=== PATIENT | female | born 1965 | race Caucasian/White ===

== ENCOUNTER → 2017-01-17 | Outpatient (CLI) | payer BC ==
[~2017-01-17] MED LIST: CARV12.52 PO; CETI10TA10 PO; CIPR-255 PO; CLC/300 PO; DALB1SOL IV; DAPT500I IV; FLUC100T4 PO; HMLI7525 SC; INSDGI SC; INSPMPHMLG; INSPMPHMLG SQ; LINE1TAB6 PO; LOSA1TAB38 PO; OXYC-57 PO; SUCR1TAB29 PO; VENL150C PO; VENL150C56 PO
== END | disposition home or self-care (01) ==
LOC: C.LABSPEC 16:45
PROVIDERS: ATTEND Physician Assistant
DX: E11.610 Type 2 diabetes mellitus with diabetic neuropathic arthropathy (principal); S91.301A Unspecified open wound, right foot, initial encounter; X58.XXXA Exposure to other specified factors, initial encounter

== ENCOUNTER → 2017-01-24 | Outpatient (CLI) | payer BC ==
[~2017-01-24] MED LIST changes: -CLC/300 PO; -INSPMPHMLG
[2017-01-24 17:42] LABS: BASO % 0.3 %; BASO ABS # 0.04 K/uL (0-0.2); COMPLETE YES; EOS % 2.4 %; IG% 0.4 %; LYMPH % 30.6 %; LYMPH ABS # 3.56 K/uL (1.2-3.4); MEAN CELL VOLUME 82.7 fL (80-100); MEAN CORPUSCULAR HEMOGLOBIN 27.4 pg (25-34); MEAN CORPUSCULAR HGB CONC 33.2 g/dl (32-36); MEAN PLATELET VOLUME 8.3 fL (7.4-10.4); MONO % 7.1 %; NEUT % 59.2 %; PLATELET COUNT 564 K/uL (130-400); RED BLOOD COUNT 4.96 M/uL (4.2-5.4); WHITE BLOOD COUNT 11.62 K/uL (4.8-10.8)
[2017-01-24 18:43] LABS: ALT/SGPT 18 U/L (12-78); BLOOD UREA NITROGEN 20 mg/dl (7-18); BUN/CREATININE RATIO 16.6 (10-20); CALCIUM 9.7 mg/dl (8.5-10.1); CARBON DIOXIDE 24 mmol/L (21-32); CHLORIDE 100 mmol/L (98-107); GLUCOSE 245 mg/dl (70-99); POTASSIUM 4.1 mmol/L (3.5-5.1); SODIUM 137 mmol/L (136-145)
[2017-01-24 18:56] LABS: ALB/GLOB RATIO 0.9 (0.9-2); ALKALINE PHOSPHATASE 130 U/L (45-117); AST/SGOT 10 U/L (15-37); C-REACTIVE PROTEIN 2.15 mg/dl (0-0.29)
== END | disposition home or self-care (01) ==
LOC: C.LABSPEC 16:25
PROVIDERS: ATTEND Internal Medicine Infectious Disease
DX: L03.90 Cellulitis, unspecified (principal)

== ENCOUNTER → 2017-02-07 | Outpatient (CLI) | payer BC ==
[~2017-02-07] MED LIST changes: -FLUC100T4 PO; -OXYC-57 PO
[2017-02-07 15:18] LABS: BASO % 0.4 %; BASO ABS # 0.04 K/uL (0-0.2); COMPLETE YES; EOS % 5.2 %; HEMATOCRIT 42.2 % (37-47); IG% 0.2 %; LYMPH % 35.7 %; LYMPH ABS # 3.56 K/uL (1.2-3.4); MEAN CELL VOLUME 82.7 fL (80-100); MEAN CORPUSCULAR HEMOGLOBIN 26.3 pg (25-34); MEAN CORPUSCULAR HGB CONC 31.8 g/dl (32-36); MEAN PLATELET VOLUME 8.5 fL (7.4-10.4); MONO % 5.4 %; NEUT % 53.1 %; PLATELET COUNT 461 K/uL (130-400); WHITE BLOOD COUNT 9.97 K/uL (4.8-10.8)
[2017-02-07 15:28] LABS: ALT/SGPT 17 U/L (12-78); AST/SGOT 8 U/L (15-37); BLOOD UREA NITROGEN 21 mg/dl (7-18); BUN/CREATININE RATIO 23.5 (10-20); CALCIUM 9.6 mg/dl (8.5-10.1); CARBON DIOXIDE 31 mmol/L (21-32); CHLORIDE 101 mmol/L (98-107); GLUCOSE 233 mg/dl (70-99); POTASSIUM 4.3 mmol/L (3.5-5.1); SODIUM 138 mmol/L (136-145)
[2017-02-07 15:31] LABS: ALB/GLOB RATIO 0.9 (0.9-2); ALKALINE PHOSPHATASE 124 U/L (45-117); C-REACTIVE PROTEIN 1.22 mg/dl (0-0.29)
--- NOTE | 2017-02-17 09:05 | CODING QUERY NO DIAGNOSIS ---
TREATMENT RENDERED WITHOUT A DIAGNOSIS Dr. Mckeon, To promote full compliance with coding requirements relating to patient care, physician participation is requested in all cases of bottom stainer uncertainty. Please assist us with providing a diagnosis/symptom for the test(s) below: A diagnosis/symptom was not documented on your Order. A valid diagnosis/symptom is required to bill all insurances. Please remember that we are unable to code a diagnosis of rule out, probable, possible, questionable, or suspected. Tests that require a diagnosis: * CBC W/AUTO DIFF DIAGNOSIS: * SED-RATE DIAGNOSIS: * CPK DIAGNOSIS: * CMP DIAGNOSIS: * C-REACTIVE PROTEIN DIAGNOSIS: DATE OF SERVICE: 02/07/17 Provider Signature: Date: Thank you Jose [facility] Information Management Once completed, please kindly fax back to [phone] For questions please call [phone]
== END | disposition home or self-care (01) ==
LOC: C.LABSPEC 13:46
PROVIDERS: ATTEND Internal Medicine Infectious Disease
DX: Z01.89 Encounter for other specified special examinations (principal)

== ENCOUNTER → 2017-02-14 | Outpatient (CLI) | payer BC ==
[2017-02-14 14:34] LABS: BASO % 0.4 %; BASO ABS # 0.03 K/uL (0-0.2); COMPLETE YES; EOS % 4.8 %; HEMATOCRIT 36.2 % (37-47); IG% 0.2 %; LYMPH % 34.7 %; LYMPH ABS # 2.96 K/uL (1.2-3.4); MEAN CELL VOLUME 82.1 fL (80-100); MEAN CORPUSCULAR HEMOGLOBIN 27.2 pg (25-34); MEAN CORPUSCULAR HGB CONC 33.1 g/dl (32-36); MEAN PLATELET VOLUME 8.7 fL (7.4-10.4); MONO % 6.9 %; PLATELET COUNT 395 K/uL (130-400); RED BLOOD COUNT 4.41 M/uL (4.2-5.4); WHITE BLOOD COUNT 8.54 K/uL (4.8-10.8)
[2017-02-14 15:01] LABS: ALT/SGPT 21 U/L (12-78); AST/SGOT 11 U/L (15-37); BLOOD UREA NITROGEN 20 mg/dl (7-18); BUN/CREATININE RATIO 22.2 (10-20); CALCIUM 8.6 mg/dl (8.5-10.1); CARBON DIOXIDE 25 mmol/L (21-32); CHLORIDE 105 mmol/L (98-107); CREATININE 0.88 mg/dl (0.60-1.20); GLUCOSE 300 mg/dl (70-99); POTASSIUM 4.4 mmol/L (3.5-5.1); SODIUM 138 mmol/L (136-145)
[2017-02-14 15:03] LABS: ALB/GLOB RATIO 0.9 (0.9-2); ALKALINE PHOSPHATASE 128 U/L (45-117); C-REACTIVE PROTEIN 1.36 mg/dl (0-0.29)
--- NOTE | 2017-02-16 10:11 | CODING QUERY NO DIAGNOSIS ---
TREATMENT RENDERED WITHOUT A DIAGNOSIS Dr. Mckeon, To promote full compliance with coding requirements relating to patient care, physician participation is requested in all cases of hims coder uncertainty. Please assist us with providing a diagnosis/symptom for the test(s) below: A diagnosis/symptom was not documented on your Order. A valid diagnosis/symptom is required to bill all insurances. Please remember that we are unable to code a diagnosis of rule out, probable, possible, questionable, or suspected. Tests that require a diagnosis: * CBC W/AUTO DIFF DIAGNOSIS: * SED-RATE DIAGNOSIS: * CPK DIAGNOSIS: * CMP DIAGNOSIS: * C-REACTIVE PROTEIN DIAGNOSIS: DATE OF SERVICE: 02/14/17 Provider Signature: Date: Thank you Jose [facility] Information Management Once completed, please kindly fax back to [phone] For questions please call [phone]
== END | disposition home or self-care (01) ==
LOC: C.LABSPEC 13:26
PROVIDERS: ATTEND Internal Medicine Infectious Disease
DX: Z01.89 Encounter for other specified special examinations (principal)

== ENCOUNTER → 2017-02-16 | Outpatient (CLI) | payer BC ==
[~2017-02-16] MED LIST changes: +FLUC100T4 PO; +OPTIRAY 320 IV PRN; +OXYC-57 PO
--- NOTE | 2017-02-16 15:18 | DIAGNOSTIC IMAGING REPORT ---
CT SCAN OF THE RIGHT LOWER EXTREMITY WITH IV CONTRAST CLINICAL HISTORY: Nonhealing wound COMPARISON STUDY: MRI of the right foot dated 01/19/2017 TECHNIQUE: CT scan of the right lower extremity is performed from the ankle to the foot. Images are reviewed in the axial, sagittal, and coronal planes. IV contrast was administered without complication. The examination is significantly degraded by positioning within the CT gantry. The interpretation is also significantly degraded without plain film correlate. CT DOSE: 204.20 mGy.cm FINDINGS: The skeletal structures are osteopenic. No acute fracture is seen. Extensive destructive change is identified throughout the tarsal bones and at the tarsometatarsal junctions. There is diffuse bony fragmentation with multifocal periostitis and diffuse superficial and deep soft tissue edema. The appearance is consistent with a neuropathic/Charcot foot. Superimposed osteomyelitis would be impossible to exclude. There are large dorsal and plantar calcaneal enthesophytes. A rocker-bottom deformity is noted. Postoperative change is identified at multiple sites in the midfoot with several screw tracks present. Although there is subcutaneous fluid, and no organized fluid collection is clearly identified to indication abscess. A large cutaneous defect along the base of the foot at the level of the anterior calcaneus is consistent with a wound/ulcer. IMPRESSION: 1. Extensive deformity is seen throughout the foot consistent with a neuropathic/Charcot foot. 2. There is diffuse superficial and deep soft tissue edema and fluid suggesting cellulitis. No organized fluid collection is clearly seen to indicate abscess. 3. There is extensive destructive and postoperative change seen throughout the tarsal bones and the tarsometatarsal joints. This may simply be related to a Charcot foot. Superimposed osteomyelitis would be impossible to exclude and clinical correlation will be required. 4. Suspect a large wound/ulcer along the plantar aspect of the foot at the level of the anterior calcaneus. Dictated: 02/16/2017 3:00 PM Transcribed: 02/16/2017 3:18 PM [email or web address] Electronically signed by: Neri Gould M.D. 02/16/2017 3:26 PM Dictated Date/Time: 02/16/2017 3:00 PM
== END | disposition home or self-care (01) ==
LOC: C.CTS 14:11
PROVIDERS: ATTEND Emergency Medicine
DX: S91.301A Unspecified open wound, right foot, initial encounter (principal); X58.XXXA Exposure to other specified factors, initial encounter; Z98.890 Other specified postprocedural states

== ENCOUNTER 2017-02-17 19:22 | Emergency (ER) | payer BC ==
[~2017-02-17] VITALS: Ht 165.1 cm; Wt 128.0 kg
[~2017-02-17 19:22] MED LIST changes: -DALB1SOL IV; -FLUC100T4 PO; -INSPMPHMLG SQ; -LINE1TAB6 PO; -OPTIRAY 320 IV PRN; -OXYC-57 PO; -SUCR1TAB29 PO; -VENL150C PO
[2017-02-17 19:27] VITALS: Ht 165.1 cm; Wt 128.0 kg
[2017-02-17] MEDS ORDERED: INSPMPHMLG SQ (20:34)
--- NOTE | 2017-02-17 20:52 | DIAGNOSTIC IMAGING REPORT ---
SINGLE VIEW CHEST CLINICAL HISTORY: PICC line assessment. FINDINGS: An AP, portable, upright chest radiograph is obtained. No prior studies are available for comparison at the time of dictation. The examination is degraded by portable technique and patient rotation. A right PICC line is in place. The tip projects over the right innominate vein proximally 6 cm above the issa. The cardiomediastinal silhouette is unremarkable. The lungs and pleural spaces are clear. No pneumothorax is seen. The skeletal structures are osteopenic. The bony thorax is grossly intact. IMPRESSION: 1. No active disease in the chest. 2. A right PICC line is in place. The tip projects over the right innominate vein approximately 6 cm above the issa. Electronically signed by: Neri Gould M.D. 02/17/2017 8:51 PM Dictated Date/Time: 02/17/2017 8:49 PM
[2017-02-17 21:56] VITALS: BP 149/73; PULSE 74; TEMP 36.9; O2SAT 98
--- NOTE | 2017-02-18 00:07 | EMERGENCY ROOM VISIT NOTE ---
History Report prepared by Troy: Petrona Auguste Under the Supervision of: Dr. Marvel Pugh M.D. First contact with patient: 19:54 Chief Complaint: OTHER COMPLAINT Stated Complaint: PICC LINE 50CM, OUT 12CM History of Present Illness The patient is a 51 year old female who presents to the Emergency Room with complaints of PICC line malfunction occurring today. The patient has been receiving IV Daptomycin through the PICC line on the right arm for a diabetic foot infection and MRSA with a foot vac in place. She needs at least 3 more weeks of antibiotics. Today, the patient's Tegaderm and dressing rolled up. The PICC line had been placed to about 50 cm on January 20 and came out to about 12 cm today. She also complains of itching and erythema around the PICC line. The patient is allergic to the adhesive. She otherwise currently denies any pain. She has some numbness with extension of the right arm from the time of PICC line placement. Pt denies LOC, headache, fevers, chills, diaphoresis, chest pain , breathing difficulties, weakness, lymphadenopathy, or other complaints. Source of History: patient Onset: today Position: arm (right) Symptom Intensity: No pain currently Quality: other (PICC line malfunction) Review of Systems See HPI for pertinent positives and negatives. A total of six systems were reviewed and were otherwise negative. Past Medical & Surgical Medical Problems: (1) Diabetes Family History Patient reports no known family medical history. Social History Smoking Status: Never Smoker Drug Use: none Marital Status: single Occupation Status: disabled Current/Historical Medications Scheduled Carvedilol (Coreg), 1 TAB PO BID Ciprofloxacin Hcl (Cipro), 1 TAB PO BID Daptomycin (Daptomycin), 760 MG IV DAILY Insulin Glargine (Lantus), 60 SC AMPM Insulin Human Lispro (Humalog), SQ AC Losartan Potassium (Cozaar), 100 MG PO DAILY Venlafaxine Hcl (Effexor Extended Rel), 300 MG PO DAILY Scheduled PRN Cetirizine Hcl (Zyrtec), 1 TAB PO DAILY PRN for ALLERGIC REACTION Allergies Coded Allergies: Adhesives (Verified Allergy, Severe, blisters, 01/19/17) Doxycycline (Verified Allergy, Severe, RASH, 01/19/17) Tetracycline (Verified Allergy, Severe, RASH, 01/19/17) Uncoded Allergies: sulfa-diuretics (Allergy, Severe, tongue swelling, 01/19/17) Physical Exam Vital Signs Date Time Temp Pulse Resp B/P (MAP) Pulse Ox O2 Delivery O2 Flow Rate FiO2 02/17/17 21:56 36.9 74 18 149/73 98 02/17/17 21:36 36.9 74 149/73 98 Room Air 02/17/17 19:27 36.6 85 18 173/71 99 Room Air Physical Exam GENERAL: Awake, alert, well-appearing, in no distress HENT: Normocephalic, atraumatic. Oropharynx unremarkable. EYES: Normal conjunctiva. Sclera non-icteric. NECK: Supple. No nuchal rigidity. FROM. No JVD. RESPIRATORY: Clear to auscultation. CARDIAC: Regular rate, normal rhythm. Extremities warm and well perfused. Pulses equal. ABDOMEN: Soft, non-distended. No tenderness to palpation. No rebound or guarding. No masses. RECTAL: Deferred. MUSCULOSKELETAL: Chest examination reveals no tenderness. The back is symmetrical on inspection without obvious abnormality. There is no CVA tenderness to palpation. No joint edema. PICC line in the right medial bicep area, contact dermatitis surrounding, no cellulitis. PICC line pulled out to 13 cm. LOWER EXTREMITIES: Calves are equal size bilaterally and non-tender. No edema. No discoloration. Wound vac on right foot. NEURO: Normal sensorium. No sensory or motor deficits noted. SKIN: No rash or jaundice noted. Medical Decision & Procedures ER Provider Diagnostic Interpretation: X-ray: Per my interpretation, radiologist review. SINGLE VIEW CHEST CLINICAL HISTORY: PICC line assessment. FINDINGS: An AP, portable, upright chest radiograph is obtained. No prior studies are available for comparison at the time of dictation. The examination is degraded by portable technique and patient rotation. A right PICC line is in place. The tip projects over the right innominate vein proximally 6 cm above the issa. The cardiomediastinal silhouette is unremarkable. The lungs and pleural spaces are clear. No pneumothorax is seen. The skeletal structures are osteopenic. The bony thorax is grossly intact. IMPRESSION: 1. No active disease in the chest. 2. A right PICC line is in place. The tip projects over the right innominate vein approximately 6 cm above the issa. Electronically signed by: Neri Gould M.D. 02/17/2017 8:51 PM Dictated Date/Time: 02/17/2017 8:49 PM ED Course 1953: The patient was evaluated in room B05. A complete history and physical exam was performed. Medication Reconciliation: I attest that I have personally reviewed the patient' s current medication list Blood pressure screening: Patient was found to have an elevated blood pressure and was referred to their primary doctor for recheck and further treatment. 2108: IV team will address the issues with the PICC line. 2124: I reevaluated the patient. Discussed results and discharge instructions: She verbalized understanding and agreement. The patient is ready for discharge. Medical Decision The patient was evaluated. He presented complaining of her PICC line migrating accidentally as well as sensitivity to adhesive. Differential includes PICC line dislodgment, infection, contact dermatitis as well as others. On evaluation the patient had a mild contact dermatitis from tape adhesive. She states this is an ongoing problem. There is no signs of cellulitis. The PICC line had migrated about 8-9 cm. An x-ray was performed. This showed the PICC line to be still within the central circulation. IV team did evaluate the patient. Unfortunately there are no staff here tonight they can change the PICC line [id number]. The patient is very difficult IV stick. PICC line is functioning. I believe it is most prudent to continue maintaining this PICC line and have the line addressed on Monday through the [facility]. She will contact infectious disease Monday to arrange this. She does note that it was a challenge and took 4 attempts to get the PICC line placed. If this tick on stops working she will come back to the emergency department. She will continue to protect this PICC line as best as possible.I gave my usual and customary discussion regarding this issue. The patient was noted to have some hypertension. She was referred to internal medicine for further evaluation and assessment a primary care.I gave my usual and customary discussion regarding this issue. Impression Primary Impression: PICC line malfunction Additional Impression: Contact dermatitis Scribe Attestation The scribe's documentation has been prepared under my direction and personally reviewed by me in its entirety. I confirm that the note above accurately reflects all work, treatment, procedures, and medical decision making performed by me. Departure Information Dispostion Home / Self-Care Referrals Junior Mckeon MD (PCP) Forms HOME CARE DOCUMENTATION FORM, IMPORTANT VISIT INFORMATION, WORK / SCHOOL INSTRUCTIONS Patient Instructions My [facility] [address] Additional Instructions Continue current care and protect the PICC line as best as possible. Call Dr. Mckeon's office Monday to address the PICC line issue. Return to the emergency department for worsening PICC line problems, fever, redness around the PICC line site, arm sling, or as needed. Your blood pressure was noted to be elevated. Establish primary care for follow -up and a recheck. Call the [facility] internal medicine office for assistance at [phone]. Problem Qualifiers
[2017-04-24] MEDS ORDERED: LINE1TAB6 PO (10:29)
[2017-05-08] MEDS ORDERED: SUCR1TAB29 PO (10:35)
[2017-06-08] MEDS ORDERED: VENL150C PO (15:11)
[2017-06-20] MEDS ORDERED: DALB1SOL IV (09:54)
[2017-08-01] MEDS ORDERED: FLUC100T4 PO (09:26)
[2017-08-03] MEDS ORDERED: VENL150C PO (10:22)
[2017-08-11] MEDS ORDERED: INSDGI SC (06:15)
[2017-08-11] MEDS ORDERED: OXYC-57 PO (10:28)
== END 2017-02-17 21:57 | disposition home or self-care (01) ==
LOC: C.EDB 19:24
DX: T82.49XA Other complication of vascular dialysis catheter, initial encounter (principal); X58.XXXA Exposure to other specified factors, initial encounter; L23.1 Allergic contact dermatitis due to adhesives; E11.621 Type 2 diabetes mellitus with foot ulcer; A49.02 Methicillin resistant Staphylococcus aureus infection, unspecified site; Z79.2 Long term (current) use of antibiotics; Z79.4 Long term (current) use of insulin

== ENCOUNTER → 2017-02-23 | Outpatient (CLI) | payer BC ==
[~2017-02-23] MED LIST changes: +DALB1SOL IV; +FLUC100T4 PO; -HMLI7525 SC; +INSPMPHMLG SQ; +LINE1TAB6 PO; +OXYC-57 PO; +SUCR1TAB29 PO; +VENL150C PO
[2017-02-23 20:35] LABS: BASO % 0.2 %; BASO ABS # 0.02 K/uL (0-0.2); COMPLETE YES; EOS % 3.4 %; IG% 0.2 %; LYMPH % 38.4 %; LYMPH ABS # 3.64 K/uL (1.2-3.4); MEAN CELL VOLUME 82.1 fL (80-100); MEAN CORPUSCULAR HEMOGLOBIN 26.3 pg (25-34); MEAN CORPUSCULAR HGB CONC 32.1 g/dl (32-36); MEAN PLATELET VOLUME 8.6 fL (7.4-10.4); MONO % 4.7 %; NEUT % 53.1 %; PLATELET COUNT 426 K/uL (130-400); RED BLOOD COUNT 4.75 M/uL (4.2-5.4); WHITE BLOOD COUNT 9.49 K/uL (4.8-10.8)
[2017-02-23 20:56] LABS: AST/SGOT 11 U/L (15-37); BLOOD UREA NITROGEN 22 mg/dl (7-18); BUN/CREATININE RATIO 25.2 (10-20); CALCIUM 8.8 mg/dl (8.5-10.1); CARBON DIOXIDE 29 mmol/L (21-32); CHLORIDE 104 mmol/L (98-107); CREATININE 0.86 mg/dl (0.60-1.20); GLUCOSE 232 mg/dl (70-99); POTASSIUM 4.5 mmol/L (3.5-5.1); SODIUM 139 mmol/L (136-145)
[2017-02-23 20:59] LABS: ALB/GLOB RATIO 0.9 (0.9-2); ALKALINE PHOSPHATASE 133 U/L (45-117); ALT/SGPT 20 U/L (12-78); C-REACTIVE PROTEIN 0.78 mg/dl (0-0.29)
== END | disposition home or self-care (01) ==
LOC: C.LABSPEC 14:08
PROVIDERS: ATTEND Internal Medicine Infectious Disease
DX: A49.01 Methicillin susceptible Staphylococcus aureus infection, unspecified site (principal)

== ENCOUNTER → 2017-02-28 | Outpatient (CLI) | payer BC ==
[2017-02-28 15:38] LABS: BASO % 0.3 %; BASO ABS # 0.03 K/uL (0-0.2); COMPLETE YES; EOS % 3.5 %; HEMATOCRIT 36.6 % (37-47); IG% 0.3 %; LYMPH % 30.5 %; LYMPH ABS # 3.19 K/uL (1.2-3.4); MEAN CELL VOLUME 82.4 fL (80-100); MEAN CORPUSCULAR HGB CONC 32.8 g/dl (32-36); MEAN PLATELET VOLUME 8.7 fL (7.4-10.4); MONO % 5.8 %; NEUT % 59.6 %; PLATELET COUNT 445 K/uL (130-400); RED BLOOD COUNT 4.44 M/uL (4.2-5.4); WHITE BLOOD COUNT 10.47 K/uL (4.8-10.8)
[2017-02-28 15:46] LABS: ALT/SGPT 24 U/L (12-78); AST/SGOT 12 U/L (15-37); BLOOD UREA NITROGEN 36 mg/dl (7-18); BUN/CREATININE RATIO 37.1 (10-20); CALCIUM 9.3 mg/dl (8.5-10.1); CARBON DIOXIDE 25 mmol/L (21-32); CHLORIDE 100 mmol/L (98-107); CREATININE 0.98 mg/dl (0.60-1.20); GLUCOSE 329 mg/dl (70-99); POTASSIUM 4.3 mmol/L (3.5-5.1); SODIUM 135 mmol/L (136-145)
[2017-02-28 15:55] LABS: ALB/GLOB RATIO 0.9 (0.9-2); ALKALINE PHOSPHATASE 138 U/L (45-117); C-REACTIVE PROTEIN 1.55 mg/dl (0-0.29)
[2017-02-28 16:02] LABS: BETA-HYDROXYBUTYRATE 1.17 mg/dL (0.2-2.81)
== END | disposition home or self-care (01) ==
LOC: C.LABSPEC 13:45
PROVIDERS: ATTEND Internal Medicine Infectious Disease
DX: Z51.81 Encounter for therapeutic drug level monitoring (principal); Z79.2 Long term (current) use of antibiotics

== ENCOUNTER → 2017-03-14 | Outpatient (CLI) | payer BC ==
[~2017-03-14] MED LIST changes: -FLUC100T4 PO; +HMLI7525 SC; -OXYC-57 PO
[2017-03-14 14:44] LABS: BASO % 0.3 %; BASO ABS # 0.02 K/uL (0-0.2); COMPLETE YES; EOS % 2.8 %; HEMATOCRIT 36.2 % (37-47); IG% 0.7 %; LYMPH % 36.5 %; MEAN CELL VOLUME 80.3 fL (80-100); MEAN CORPUSCULAR HEMOGLOBIN 27.3 pg (25-34); MEAN PLATELET VOLUME 8.4 fL (7.4-10.4); MONO % 6.2 %; NEUT % 53.5 %; PLATELET COUNT 452 K/uL (130-400); RED BLOOD COUNT 4.51 M/uL (4.2-5.4)
[2017-03-14 15:10] LABS: ALB/GLOB RATIO 0.8 (0.9-2); ALKALINE PHOSPHATASE 145 U/L (45-117); ALT/SGPT 17 U/L (12-78); AST/SGOT 9 U/L (15-37); BLOOD UREA NITROGEN 16 mg/dl (7-18); BUN/CREATININE RATIO 14.3 (10-20); C-REACTIVE PROTEIN 4.16 mg/dl (0-0.29); CALCIUM 8.8 mg/dl (8.5-10.1); CARBON DIOXIDE 25 mmol/L (21-32); CHLORIDE 97 mmol/L (98-107); GLUCOSE 463 mg/dl (70-99); POTASSIUM 4.1 mmol/L (3.5-5.1); SODIUM 131 mmol/L (136-145)
[2017-03-14 15:23] LABS: BETA-HYDROXYBUTYRATE 1.46 mg/dL (0.2-2.81)
--- NOTE | 2017-03-24 08:57 | CODING QUERY NO DIAGNOSIS ---
TREATMENT RENDERED WITHOUT A DIAGNOSIS To promote full compliance with coding requirements relating to patient care, physician participation is requested in all cases of industrial photographer uncertainty. Please assist us with providing a diagnosis/symptom for the test(s) below: A diagnosis/symptom was not documented on your Order. A valid diagnosis/symptom is required to bill all insurances. Please remember that we are unable to code a diagnosis of rule out, probable, possible, questionable, or suspected. Tests that require a diagnosis: DOS 03/14 * CBC, ESR DIAGNOSIS: * CMP, CPK, CRP DIAGNOSIS: Provider Signature: Date: Thank you Leonela Fields [facility] Information Management Once completed, please kindly fax back to [phone] For questions please call [phone]
== END | disposition home or self-care (01) ==
LOC: C.LABSPEC 14:27
PROVIDERS: ATTEND Internal Medicine Infectious Disease
DX: Z92.29 Personal history of other drug therapy (principal)

== ENCOUNTER → 2017-03-22 | Outpatient (CLI) | payer BC ==
[~2017-03-22] MED LIST changes: -HMLI7525 SC
[2017-03-22 14:36] LABS: BASO % 0.5 %; BASO ABS # 0.04 K/uL (0-0.2); COMPLETE YES; IG% 0.2 %; LYMPH % 33.5 %; LYMPH ABS # 2.94 K/uL (1.2-3.4); MEAN CELL VOLUME 81.7 fL (80-100); MEAN CORPUSCULAR HEMOGLOBIN 27.1 pg (25-34); MEAN CORPUSCULAR HGB CONC 33.2 g/dl (32-36); MEAN PLATELET VOLUME 8.9 fL (7.4-10.4); MONO % 5.8 %; PLATELET COUNT 435 K/uL (130-400); RED BLOOD COUNT 4.65 M/uL (4.2-5.4); WHITE BLOOD COUNT 8.78 K/uL (4.8-10.8)
[2017-03-22 14:43] LABS: ALT/SGPT 18 U/L (12-78); BLOOD UREA NITROGEN 16 mg/dl (7-18); BUN/CREATININE RATIO 17.9 (10-20); C-REACTIVE PROTEIN 0.54 mg/dl (0-0.29); CALCIUM 9.1 mg/dl (8.5-10.1); CARBON DIOXIDE 25 mmol/L (21-32); CHLORIDE 105 mmol/L (98-107); CREATININE 0.89 mg/dl (0.60-1.20); GLUCOSE 175 mg/dl (70-99); POTASSIUM 3.9 mmol/L (3.5-5.1); SODIUM 138 mmol/L (136-145)
[2017-03-22 14:46] LABS: ALB/GLOB RATIO 0.9 (0.9-2); ALKALINE PHOSPHATASE 123 U/L (45-117); AST/SGOT 12 U/L (15-37)
== END | disposition home or self-care (01) ==
LOC: C.LABSPEC 11:45
PROVIDERS: ATTEND Internal Medicine Infectious Disease
DX: A49.01 Methicillin susceptible Staphylococcus aureus infection, unspecified site (principal); L03.119 Cellulitis of unspecified part of limb

== ENCOUNTER → 2017-03-28 | Outpatient (CLI) | payer BC ==
[2017-03-28 15:39] LABS: BASO % 0.4 %; BASO ABS # 0.03 K/uL (0-0.2); COMPLETE YES; EOS % 3.8 %; HEMATOCRIT 36.3 % (37-47); IG% 0.4 %; LYMPH % 32.6 %; LYMPH ABS # 2.67 K/uL (1.2-3.4); MEAN CELL VOLUME 81.4 fL (80-100); MEAN CORPUSCULAR HEMOGLOBIN 27.1 pg (25-34); MEAN CORPUSCULAR HGB CONC 33.3 g/dl (32-36); MEAN PLATELET VOLUME 8.5 fL (7.4-10.4); MONO % 7.3 %; NEUT % 55.5 %; PLATELET COUNT 420 K/uL (130-400); RED BLOOD COUNT 4.46 M/uL (4.2-5.4)
[2017-03-28 15:47] LABS: ALT/SGPT 27 U/L (12-78); BLOOD UREA NITROGEN 29 mg/dl (7-18); BUN/CREATININE RATIO 34.5 (10-20); CALCIUM 9.1 mg/dl (8.5-10.1); CARBON DIOXIDE 26 mmol/L (21-32); CHLORIDE 101 mmol/L (98-107); CREATININE 0.85 mg/dl (0.60-1.20); GLUCOSE 203 mg/dl (70-99); POTASSIUM 4.5 mmol/L (3.5-5.1); SODIUM 134 mmol/L (136-145)
[2017-03-28 15:50] LABS: ALKALINE PHOSPHATASE 117 U/L (45-117); AST/SGOT 13 U/L (15-37)
--- NOTE | 2017-03-30 14:56 | CODING QUERY NO DIAGNOSIS ---
TREATMENT RENDERED WITHOUT A DIAGNOSIS 61 To promote full compliance with coding requirements relating to patient care, physician participation is requested in all cases of high school foreign language tutor uncertainty. Please assist us with providing a diagnosis/symptom for the test(s) below: A diagnosis/symptom was not documented on your Order. A valid diagnosis/symptom is required to bill all insurances. Please remember that we are unable to code a diagnosis of rule out, probable, possible, questionable, or suspected. DOS 03/28/17 Tests that require a diagnosis: * CBC W/AUTO DIFF DIAGNOSIS: * COMP METABOLIC DIAGNOSIS: * CREATININE PHOS DIAGNOSIS: * C-REACTIVE PROTEIN DIAGNOSIS: * ESR DIAGNOSIS: Provider Signature: Date: Thank you Brigida Horta Health Information Management Once completed, please kindly fax back to [phone] For questions please call [phone]
== END | disposition home or self-care (01) ==
LOC: C.LABSPEC 15:03
PROVIDERS: ATTEND Internal Medicine Infectious Disease
DX: L03.119 Cellulitis of unspecified part of limb (principal)

== ENCOUNTER → 2017-04-04 | Outpatient (CLI) | payer BC ==
[2017-04-04 15:36] LABS: BASO % 0.2 %; BASO ABS # 0.02 K/uL (0-0.2); COMPLETE YES; EOS % 3.6 %; HEMATOCRIT 37.4 % (37-47); IG% 0.3 %; LYMPH % 37.8 %; LYMPH ABS # 3.67 K/uL (1.2-3.4); MEAN CORPUSCULAR HEMOGLOBIN 27.3 pg (25-34); MEAN CORPUSCULAR HGB CONC 33.7 g/dl (32-36); MEAN PLATELET VOLUME 8.4 fL (7.4-10.4); MONO % 7.4 %; NEUT % 50.7 %; PLATELET COUNT 357 K/uL (130-400); RED BLOOD COUNT 4.62 M/uL (4.2-5.4); WHITE BLOOD COUNT 9.72 K/uL (4.8-10.8)
[2017-04-04 15:44] LABS: ALT/SGPT 21 U/L (12-78); AST/SGOT 10 U/L (15-37); BLOOD UREA NITROGEN 24 mg/dl (7-18); C-REACTIVE PROTEIN 1.03 mg/dl (0-0.29); CALCIUM 10.5 mg/dl (8.5-10.1); CARBON DIOXIDE 29 mmol/L (21-32); CHLORIDE 100 mmol/L (98-107); CREATININE 0.81 mg/dl (0.60-1.20); GLUCOSE 200 mg/dl (70-99); POTASSIUM 3.5 mmol/L (3.5-5.1); SODIUM 135 mmol/L (136-145)
[2017-04-04 15:47] LABS: ALKALINE PHOSPHATASE 119 U/L (45-117)
== END | disposition home or self-care (01) ==
LOC: C.LABSPEC 14:50
PROVIDERS: ATTEND Internal Medicine Infectious Disease
DX: Z92.29 Personal history of other drug therapy (principal)

== ENCOUNTER → 2017-04-11 | Outpatient (CLI) | payer BC ==
[2017-04-11 13:36] LABS: BASO % 0.4 %; BASO ABS # 0.04 K/uL (0-0.2); COMPLETE YES; EOS % 3.5 %; HEMATOCRIT 38.2 % (37-47); IG% 0.3 %; LYMPH % 31.2 %; LYMPH ABS # 3.19 K/uL (1.2-3.4); MEAN CELL VOLUME 82.9 fL (80-100); MEAN CORPUSCULAR HEMOGLOBIN 27.3 pg (25-34); MEAN PLATELET VOLUME 8.6 fL (7.4-10.4); MONO % 6.7 %; NEUT % 57.9 %; PLATELET COUNT 387 K/uL (130-400); RED BLOOD COUNT 4.61 M/uL (4.2-5.4); WHITE BLOOD COUNT 10.24 K/uL (4.8-10.8)
[2017-04-11 14:14] LABS: ALB/GLOB RATIO 0.9 (0.9-2); ALKALINE PHOSPHATASE 126 U/L (45-117); ALT/SGPT 17 U/L (12-78); BLOOD UREA NITROGEN 16 mg/dl (7-18); CALCIUM 8.9 mg/dl (8.5-10.1); CARBON DIOXIDE 28 mmol/L (21-32); CHLORIDE 105 mmol/L (98-107); CREATININE 0.68 mg/dl (0.60-1.20); GLUCOSE 91 mg/dl (70-99); SODIUM 138 mmol/L (136-145)
[2017-04-11 14:15] LABS: AST/SGOT 8 U/L (15-37); C-REACTIVE PROTEIN 0.88 mg/dl (0-0.29)
== END | disposition home or self-care (01) ==
LOC: C.LABSPEC 12:36
PROVIDERS: ATTEND Internal Medicine Infectious Disease
DX: Z51.81 Encounter for therapeutic drug level monitoring (principal); Z79.2 Long term (current) use of antibiotics

== ENCOUNTER → 2017-05-12 | Outpatient (CLI) | payer BC ==
[~2017-05-12] MED LIST changes: -CARV12.52 PO; -CIPR-255 PO; -DAPT500I IV; -VENL150C56 PO
[2017-05-12 13:19] LABS: BASO % 0.3 %; BASO ABS # 0.03 K/uL (0-0.2); COMPLETE YES; EOS % 2.5 %; HEMATOCRIT 38.8 % (37-47); IG% 0.2 %; LYMPH % 42.2 %; MEAN CELL VOLUME 84.3 fL (80-100); MEAN CORPUSCULAR HEMOGLOBIN 27.8 pg (25-34); MEAN PLATELET VOLUME 8.2 fL (7.4-10.4); MONO % 5.9 %; NEUT % 48.9 %; PLATELET COUNT 425 K/uL (130-400); WHITE BLOOD COUNT 9.47 K/uL (4.8-10.8)
[2017-05-12 13:58] LABS: ALT/SGPT 22 U/L (12-78); AST/SGOT 11 U/L (15-37); BLOOD UREA NITROGEN 25 mg/dl (7-18); BUN/CREATININE RATIO 31.4 (10-20); CALCIUM 10.3 mg/dl (8.5-10.1); CARBON DIOXIDE 29 mmol/L (21-32); CHLORIDE 101 mmol/L (98-107); CREATININE 0.79 mg/dl (0.60-1.20); GLUCOSE 136 mg/dl (70-99); POTASSIUM 3.9 mmol/L (3.5-5.1); SODIUM 138 mmol/L (136-145)
[2017-05-12 14:00] LABS: ALB/GLOB RATIO 0.9 (0.9-2); ALKALINE PHOSPHATASE 127 U/L (45-117); C-REACTIVE PROTEIN 0.98 mg/dl (0-0.29)
== END | disposition home or self-care (01) ==
LOC: C.LAB 11:08
PROVIDERS: ATTEND Internal Medicine Infectious Disease
DX: S91.301A Unspecified open wound, right foot, initial encounter (principal); X58.XXXA Exposure to other specified factors, initial encounter

== ENCOUNTER → 2017-08-03 | Outpatient (CLI) | payer BC ==
[~2017-08-03] MED LIST changes: -DALB1SOL IV; +FLUC100T4 PO; -LINE1TAB6 PO; -SUCR1TAB29 PO
--- NOTE | 2017-08-03 11:11 | DIAGNOSTIC IMAGING REPORT ---
CT SCAN OF THE TEMPORAL BONES WITHOUT IV CONTRAST CLINICAL HISTORY: Chronic mastoiditis. COMPARISON STUDY: No priors. TECHNIQUE: High-resolution CT scan of the temporal bones is performed. Images are reviewed in the axial, sagittal, and coronal planes. IV contrast was not administered for this examination. A dose lowering technique was utilized adhering to the principles of ALARA. CT DOSE: 530.20 mGy/cm FINDINGS: The skeletal structures are osteopenic. The right mastoid air cells are clear. There is a moderate left mastoid effusion. No bony destruction is seen. The middle ear structures are normal in appearance. The ossicles are normal. The scutum is sharp bilaterally. There is no evidence of dehiscence of the tegmen tympani. There is no evidence of cholesteatoma. Arthritic change is noted in the temporomandibular joint. Trace mucosal thickening is seen in the left frontal sinus. The remaining paranasal sinuses are clear. The bony orbits appear intact. Orbital contents are normal in appearance. The visualized brain parenchyma is grossly normal. The imaged calvarium appears intact. IMPRESSION: 1. Moderate left mastoid effusion. No bony destruction is seen. 2. The right mastoid air cells are clear. 3. The middle ear structures are normal in appearance. Dictated: 08/03/2017 9:16 AM Transcribed: 08/03/2017 11:11 AM NTS_Byrd Electronically signed by: Neri Gould M.D. 08/03/2017 11:32 AM Dictated Date/Time: 08/03/2017 9:16 AM
== END | disposition home or self-care (01) ==
LOC: C.CTS 08:30
PROVIDERS: ATTEND Otolaryngology
DX: H70.13 Chronic mastoiditis, bilateral (principal)

== ENCOUNTER → 2017-08-03 | Outpatient (CLI) | payer BC ==
[~2017-08-03] MED LIST changes: +ASPI500T13 PO; +ASPI81TA28 PO; +CARV12.5 PO; +CIPR-255 PO; +CRS/10 PO; +CRS20 PO; +DAPT500I IV; +DAPTOMYCIN CONSULT ACTIVE; +DIPH1TAB87 PO; +ERTA1INJ IV; +FURO-85 PO; +LBT100 PO; +LEVO1TAB34 PO; +LVQ750 PO; +NTRGSL/4 UT; +NTRGSL4 SL; +OXYC-57 PO; +RIFA300C34 PO; +ROSU5TAB PO; -VENL150C PO; +VENL150C2 PO; +[UNRECOGNIZED DRUG - CODE]; +[UNRECOGNIZED DRUG - CODE] IV
[2017-08-03 12:21] LABS: BLOOD UREA NITROGEN 24 mg/dl (7-18); CALCIUM 9.6 mg/dl (8.5-10.1); CARBON DIOXIDE 26 mmol/L (21-32); CREATININE 0.85 mg/dl (0.60-1.20); GLUCOSE 146 mg/dl (70-99); POTASSIUM 4.6 mmol/L (3.5-5.1); SODIUM 136 mmol/L (136-145)
[2017-08-03 12:34] LABS: CHOLESTEROL 215 mg/dl (0-200); LDL CHOLESTEROL CALCULATED 122 mg/dl
== END | disposition home or self-care (01) ==
LOC: C.LAB 10:03
PROVIDERS: ATTEND Physician Assistant
DX: E11.9 Type 2 diabetes mellitus without complications (principal); I10 Essential (primary) hypertension; G47.30 Sleep apnea, unspecified

== ENCOUNTER → 2017-08-11 | Day surgery (SDC) | payer BC ==
[2017-08-03 10:24] VITALS: BMI 45.0
--- NOTE | 2017-08-03 11:21 | PAT Medication Instructions ---
Service Date Aug 03, 2017. Current Home Medication List Cetirizine Hcl (Zyrtec), 1 TAB PO DAILY PRN for ALLERGIC REACTION Fluconazole (Diflucan), 1 TAB PO QPM Insulin Glargine (Lantus), 60 SC AMPM Insulin Human Lispro (Humalog), SQ AC Losartan Potassium (Cozaar), 100 MG PO QPM Venlafaxine Hcl (Effexor Xr), 300 MG PO QPM Medication Instructions For Your Scheduled Surgery - Hold the following medications THE NIGHT BEFORE SURGERY: Losartan Potassium (Cozaar), 100 MG PO QPM - Hold the following medications the morning of surgery: Insulin Human Lispro (Humalog), SQ AC - Take the following medications as scheduled the night before surgery: Venlafaxine Hcl (Effexor Xr), 300 MG PO QPM Insulin Glargine (Lantus), 60 SC AMPM Cetirizine Hcl (Zyrtec), 1 TAB PO DAILY PRN for ALLERGIC REACTION (if needed) Insulin Human Lispro (Humalog), SQ AC - For Insulin Dependent Diabetic patients: Test blood sugar A.M. of surgery. - If BLOOD SUGAR >150, take half of your regular dose of: Insulin Glargine (Lantus), 60 SC AMPM (TAKE 30 UNITS) - If BLOOD SUGAR <150, do not take any: Insulin Glargine (Lantus), 60 SC AMPM If you have any questions please call us at [phone] or [phone] or [phone]
--- NOTE | 2017-08-09 13:57 | History and Physical ---
History & Physical Date Aug 09, 2017. Chief Complaint left ear infection, drainage, hearing loss History of Present Illness The patient is a 52 year old female with complaints of chronic otitis media left ear, recurrent drainage since 2015, told by previous ENT to have cholesteatoma Past Medical/Surgical History Medical Problems: (1) Charcot foot due to diabetes mellitus (2) Diabetes (3) Diabetic foot ulcer (4) Diabetic peripheral neuropathy associated with type 2 diabetes mellitus (5) Foot deformity (6) Loss of sensation Additional History Hepatic Disease: No Endocrine Disorder: Yes Kidney Disease: Yes Hypertension: Yes Heart Disease: Yes Bleeding Tendencies: No Infectious Diseases: No Allergies Coded Allergies: Adhesives (Verified Allergy, Severe, blisters, 08/03/17) Doxycycline (Verified Allergy, Severe, RASH, 08/03/17) Tetracycline (Verified Allergy, Severe, RASH, 08/03/17) Carvedilol (Verified Allergy, Intermediate, ANAPHYLAXIS, 08/03/17) Sulfa Antibiotics (Verified Allergy, Unknown, SULFA DIURETICS LIP AND TONGUE SWELLING, 08/03/17) Home Medications Scheduled Fluconazole (Diflucan), 1 TAB PO QPM Insulin Glargine (Lantus), 60 SC AMPM Insulin Human Lispro (Humalog), SQ AC Losartan Potassium (Cozaar), 100 MG PO QPM Venlafaxine Hcl (Effexor Xr), 300 MG PO QPM Scheduled PRN Cetirizine Hcl (Zyrtec), 1 TAB PO DAILY PRN for ALLERGIC REACTION Physical Examination Skin: warm/dry, no rash Eyes: normal inspection, EOMI, sclerae normal ENT: + pertinent finding (left ear perforation, no sign of cholesteatoma) Head: normocephalic, atraumatic Neck: supple, no adenopathy, trachea midline Respiratory/Chest: lungs clear, normal breath sounds, no respiratory distress Cardiovascular: regular rate, rhythm, no edema, no murmur Abdomen / GI: normal bowel sounds, non tender Back: normal inspection Extremities: normal inspection, normal range of motion Diagnosis chronic otitis media/mastoiditis left ear, confirmed on CT of mastoids Plan of Treatment tympanomastoidectomy, left
[~2017-08-11] VITALS: Ht 165.1 cm; Wt 125.0 kg
[~2017-08-11] MED LIST changes: -ASPI500T13 PO; -ASPI81TA28 PO; +ATROPINE SULFATE 0.1 MG/ML 5ML SYR IV PRN; -CARV12.5 PO; +CEFAZOLIN 3000MG IV PUSH 15 ML IV SCH; -CIPR-255 PO; -CRS/10 PO; -CRS20 PO; -DAPT500I IV; -DAPTOMYCIN CONSULT ACTIVE; +DEXAMETHASONE SOD INJ 4 MG/ML VIAL ONE; -DIPH1TAB87 PO; -ERTA1INJ IV; +EpHEDrine SULFATE 50MG/5ML SYR ONE; +EpHEDrine SULFATE INJ 50 MG/ML AMP IV PRN; +EpINEphrine HCL INJ 1 MG/ML 5ML SYRINGE ONE; +FENTANYL CITRATE INJ 50 MCG/1 ML 2 ML VIAL ONE; +FLUMAZENIL 0.1 MG/1 ML 10 ML VIAL IV PRN; -FURO-85 PO; +GELATIN SPONGE 12-7MM ONE; +GLYCOPYRROLATE INJ 0.2 MG/ML VIAL ONE; +LABETALOL HCL IV 5 MG/ML 20ML IV PRN; +LACTATED RINGER'S 1000ML 1,000 ML IV SCH; +LARYING-O-JET KIT (LTA) ONE; -LBT100 PO; -LEVO1TAB34 PO; +LIDO 2%/EPINEPHRINE 1:100000 20 ML VIAL INFIL ONE; +LIDOCAINE HCL 2% 2 ML VIAL (20MG/ML) ONE; -LVQ750 PO; +METOCLOPRAMIDE HCL INJ 5 MG/ML 2 ML VIAL ONE; +MIDAZOLAM HCL 1 MG/ML 2ML VIAL ONE; +NALOXONE HCL 0.4 MG/1 ML VIAL/CARP IV PRN; +NEOMYC/POLYMYX/BACITR/HC OP OI 3.5 GM TUBE ONE; +NEOMYCIN/POLYMYX/HYDROCORT OT SUSP 10 ML BTL ONE; +NEOSTIGMINE METHYLSULFATE 5 MG/5 ML SYR ONE; -NTRGSL/4 UT; -NTRGSL4 SL; +ONDANSETRON INJ 2 MG/ML 2 ML VIAL IV PRN; +ONDANSETRON INJ 2 MG/ML 2 ML VIAL ONE; +OXYCODONE/ACETAMINOPHEN 5-325 TAB PO PRN; +PHENYLEPHRINE 100MCG/ML 5ML SYR ONE; +PROMETHAZINE HCL INJ 12.5 MG in SODIUM CHLORIDE 0.9% 50ML 50 ML IV PRN; +PROPOFOL IV EMULSION 10 MG/ML 20 ML VIAL IV ONE; -RIFA300C34 PO; +ROCURONIUM BROMIDE 10 MG/ML 5 ML VIAL IV ONE; -ROSU5TAB PO; +SCOPOLAMINE 1.5 MG TDSY TD SCH; +SODIUM CHLORIDE 0.9% 1000ML 1,000 ML IV SCH; +SUCCINYLCHOLINE CHLORIDE 20 MG/ML 10 ML VIAL IV ONE; +VENL150C PO; -VENL150C2 PO; -[UNRECOGNIZED DRUG - CODE]; -[UNRECOGNIZED DRUG - CODE] IV
[2017-08-11 06:01] VITALS: BP 178/85; PULSE 92; TEMP 37.3; O2SAT 99; Ht 165.1 cm; Wt 125.0 kg
--- NOTE | 2017-08-11 06:51 | History & Physical Bridge Note ---
H&P Re-Evaluation Bridge Note: I have examined the patient, reviewed the History & Physical and in the interval since the performance of the History & Physical I have noted the following changes of clinical significance: No changes noted
--- NOTE | 2017-08-11 10:30 | Discharge Instructions-SurgCtr ---
Discharge Instructions Date of Service Aug 11, 2017. Visit Reason for Visit: Perforation and Chronic Mastoiditis Left Ear Discharge Discharge Diagnosis / Problem: same Discharge Goals Goal(s): Improve disease control Activity Recommendations Activity Limitations: per Instructions/Follow-up section Anesthesia . Post Anesthesia Instructions: If you have had General Anesthesia or IV Sedation: * Do not drive today. * Resume driving when surgeon permits. * Do not make important decisions or sign legal documents today. * Call surgeon for: 1. Temperature elevations greater than 101 degrees F. 2. Uncontrollable pain. 3. Excessive bleeding. 4. Persistent nausea and vomiting. 5. Medication intolerance (nausea, vomiting or rash). * For nausea and vomiting use only clear liquids such as: tea, soda, bouillon until nausea subsides, then gradually increase diet as tolerated. * If you have any concerns or questions, call your surgeon's office. If physician is unavailable and it is an emergency, call 911 or go to the nearest emergency room. . Instructions / Follow-Up Instructions / Follow-Up ACTIVITY RECOMMENDATIONS: No limitations OVER THE COUNTER MEDICATIONS: Continue any other previous medications unless otherwise indicated by your surgeon. * You may use Tylenol for mild pain as per bottle instructions. SPECIAL CARE INSTRUCTIONS: * Keep operative ear dry. * Change cotton balls 4 times per day. Leave packing in ear. * Sneeze with your mouth open. * Do not blow your nose. Sniff back instead. * Please call with any increasing pain, increasing drainage, active bleeding, redness and/or swelling, or any concerns. Dr. Deluna's office number is . FOLLOW UP VISIT: If not already scheduled, please call to schedule follow-up appointment with Dr. Deluna. Diet Recommendations Home Diet: resume previous diet Procedures Procedures Performed: Left Ear Tympanomastoidectomy Pending Studies Studies pending at discharge: no Medical Emergencies . Who to Call and When: Medical Emergencies: If at any time you feel your situation is an emergency, please call 911 immediately. . Non-Emergent Contact Non-Emergency issues call your: Primary Care Provider . . "Provider Documentation" section prepared by Lissa Deluna. . [place] Drug Monitoring Program Search Results: no issues identified
--- NOTE | 2017-08-11 10:51 | Anesthesiology Progress Note ---
Anesthesia Post Op Note Date & Time Aug 11, 2017 at 10:51 Vital Signs Pain Intensity: 0 Vital Signs Past 12 Hours Date Time Temp Pulse Resp B/P (MAP) Pulse Ox O2 Delivery O2 Flow Rate FiO2 08/11/17 10:45 37.0 72 16 153/69 98 Room Air 08/11/17 10:35 72 18 132/63 98 Room Air 08/11/17 10:25 69 23 134/79 92 Room Air 08/11/17 10:15 89 17 185/76 98 Oxymask 10 08/11/17 10:06 36.3 94 16 165/104 99 Oxymask 10 08/11/17 06:01 37.3 92 18 178/85 (116) 99 Room Air Notes Mental Status: alert / awake / arousable, participated in evaluation Pt Amnestic to Procedure: Yes Nausea / Vomiting: adequately controlled Pain: adequately controlled Airway Patency, RR, SpO2: stable & adequate BP & HR: stable & adequate Hydration State: stable & adequate Anesthetic Complications: no major complications apparent
[2017-08-11 10:57] VITALS: BP 128/72; PULSE 78; TEMP 37.4; O2SAT 92
--- NOTE | 2017-08-11 10:59 | OPERATIVE REPORT ---
DATE OF OPERATION: 08/11/2017 PREOPERATIVE DIAGNOSIS: Chronic otitis media with mastoiditis of the left ear. PROCEDURE: Left tympanomastoidectomy. SURGEON: Lissa Deluna MD ANESTHESIA: General endotracheal. COMPLICATIONS: None. BLOOD LOSS: 30 mL. 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 Mckeon with daptomycin. Subsequently, she developed an allergic reaction to daptomycin and grew out paras from the left ear. CT scan documented polyps filling the mastoid, especially in the mastoid tip. Above procedure felt to be indicated. DESCRIPTION OF PROCEDURE: The patient was brought to the operating room and placed in the supine position. General endotracheal anesthesia was induced, prepped with Betadine paint and draped in the usual sterile manner. The ear was incised postauricularly using the 15 blade, carried down through the skin and the subcutaneous layer and exposing the temporalis fascia. The fascia was harvested and set aside for use later in the fascia press. The periosteal incision was made in the shape of 7 using the 15 blade. Periosteum was elevated using the Lempert and then the freer elevators. The ear canal skin was elevated in continuity and the ear was retracted anteriorly. The middle ear space was entered in the hypotympanum. Using the round knife and the Byers, elevation was continued anterior inferiorly and posterior superiorly, elevating the tympanic membrane, exposing the middle ear space, which had some purulent material, which was suctioned clean and irrigated clean. Because of this, the mastoidectomy was performed, delineating the sinodural angle, opening up the mastoid antrum, finding the Yazmin's septum, opening up the Yazmin's septum and then finding the polyps filling the mastoid antrum extending down into the mastoid tip. The polyp was followed inferiorly into multiple inferior mastoid air cells, which were all drilled and cleaned using the Xomed drill with the 5 mm and then the 2 mm bursts, removing the polyps from the mastoid air cells and from the antrum of the mastoid. Polyp around the incus was also dissected free using the Byers, the [place] and the curved elevators. In this manner, the entire polyp from the mastoid cavity was removed. The ossicular continuity was inspected. The incus and stapes appeared to be in place in the middle ear space posteriorly in the mastoid. The body of the incus appeared to be intact. The facial recess was opened and also the attic space was opened finding no further evidence of cholesteatoma or polyps. At this point, the middle ear space was filled with pieces of dry Gelfoam and the temporalis fascia was placed in underlay manner on top of the Gelfoam bed and under the tympanic membrane. The mastoid antrum was again suctioned clean and the ear was reflected back into its original position. The perforation was inspected. The graft covered all edges of the perforation and was tucked superiorly, anteriorly and inferiorly underneath the edges of the perforation underneath the tympanic membrane. The graft and tympanomeatal flap were packed back in position with pieces of dry Gelfoam and also with Cortisporin ointment filling the ear canal. The postauricular incision was closed in layers with a continuous 4-0 Vicryl suture on the periosteum with interrupted 4-0 Vicryl sutures on the subcutaneous layer and also on the subcuticular layer and then Dermabond on the skin layer. The Semaj dressing was placed. The patient tolerated procedure well and was taken to recovery area in satisfactory condition. I attest to the content of the Intraoperative Record and any orders documented therein. Any exceptions are noted below. [facility]
[2017-08-11 11:30] VITALS: BP 147/80; PULSE 81; O2SAT 97
== END | disposition home or self-care (01) ==
LOC: C.ACU 05:34
PROVIDERS: ATTEND Otolaryngology
DX: H66.90 Otitis media, unspecified, unspecified ear (principal); H70.92 Unspecified mastoiditis, left ear; G47.33 Obstructive sleep apnea (adult) (pediatric); E66.01 Morbid (severe) obesity due to excess calories; E11.9 Type 2 diabetes mellitus without complications; Z88.1 Allergy status to other antibiotic agents; Z88.2 Allergy status to sulfonamides; Z79.4 Long term (current) use of insulin

== ENCOUNTER 2017-11-30 14:22 | Observation (INO) | payer BC ==
[~2017-11-30] VITALS: Ht 172.7 cm; Wt 125.7 kg
[~2017-11-30 14:22] MED LIST changes: -ATROPINE SULFATE 0.1 MG/ML 5ML SYR IV PRN; -CEFAZOLIN 3000MG IV PUSH 15 ML IV SCH; +CIPR-255 PO; -DEXAMETHASONE SOD INJ 4 MG/ML VIAL ONE; -EpHEDrine SULFATE 50MG/5ML SYR ONE; -EpHEDrine SULFATE INJ 50 MG/ML AMP IV PRN; -EpINEphrine HCL INJ 1 MG/ML 5ML SYRINGE ONE; -FENTANYL CITRATE INJ 50 MCG/1 ML 2 ML VIAL ONE; -FLUC100T4 PO; -FLUMAZENIL 0.1 MG/1 ML 10 ML VIAL IV PRN; +FURO-85 PO; -GELATIN SPONGE 12-7MM ONE; -GLYCOPYRROLATE INJ 0.2 MG/ML VIAL ONE; -LABETALOL HCL IV 5 MG/ML 20ML IV PRN; -LACTATED RINGER'S 1000ML 1,000 ML IV SCH; -LARYING-O-JET KIT (LTA) ONE; -LIDO 2%/EPINEPHRINE 1:100000 20 ML VIAL INFIL ONE; -LIDOCAINE HCL 2% 2 ML VIAL (20MG/ML) ONE; -METOCLOPRAMIDE HCL INJ 5 MG/ML 2 ML VIAL ONE; -MIDAZOLAM HCL 1 MG/ML 2ML VIAL ONE; -NALOXONE HCL 0.4 MG/1 ML VIAL/CARP IV PRN; -NEOMYC/POLYMYX/BACITR/HC OP OI 3.5 GM TUBE ONE; -NEOMYCIN/POLYMYX/HYDROCORT OT SUSP 10 ML BTL ONE; -NEOSTIGMINE METHYLSULFATE 5 MG/5 ML SYR ONE; -ONDANSETRON INJ 2 MG/ML 2 ML VIAL IV PRN; -ONDANSETRON INJ 2 MG/ML 2 ML VIAL ONE; -OXYCODONE/ACETAMINOPHEN 5-325 TAB PO PRN; -PHENYLEPHRINE 100MCG/ML 5ML SYR ONE; -PROMETHAZINE HCL INJ 12.5 MG in SODIUM CHLORIDE 0.9% 50ML 50 ML IV PRN; -PROPOFOL IV EMULSION 10 MG/ML 20 ML VIAL IV ONE; -ROCURONIUM BROMIDE 10 MG/ML 5 ML VIAL IV ONE; -SCOPOLAMINE 1.5 MG TDSY TD SCH; -SODIUM CHLORIDE 0.9% 1000ML 1,000 ML IV SCH; -SUCCINYLCHOLINE CHLORIDE 20 MG/ML 10 ML VIAL IV ONE
--- NOTE | 2017-11-30 14:59 | EMERGENCY ROOM VISIT NOTE ---
History Report prepared by Troy: Galen Polo Under the Supervision of: Dr. Adalid Torres M.D. First contact with patient: 14:41 Chief Complaint: HYPERTENSION Stated Complaint: REFERRED BY MD History of Present Illness The patient is a 52 year old female who presents to the Emergency Room with concerns over worsening hypertensive blood pressures that she first started to notice yesterday. 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 Last night her pressure was 201/101 so she took an extra dosage of Losartan. The patient was recently started on Lasix by Dr. Saldivar. She notes that she is allergic to Sulfa drugs and was told that Lasix can cause a reaction. She took her Lasix the first couple of times with Benadryl, but she still experienced some adverse reactions to the drug. She has not taken the Lasix since Monday. The patient is also complaining of nausea and feeling feverish. She is not sure if she can attribute this to her hypertensive readings. She is also on Ciprofloxacin for MRSA. She follows with Dr. Mckeon for the Cipro which she will be on for 3 months. After review of the two EKGs that were performed today prior to arrival the patient does have some changes. The EKGs show that the T-wave inversions and the ST-depressions are worsening. Source of History: patient Onset: Yesterday Quality: other (Hypertension) Timing: worsening Associated Symptoms: + fevers, + nausea Review of Systems See HPI for pertinent positives & negatives. A total of 10 systems reviewed and were otherwise negative. Past Medical & Surgical Medical Problems: (1) Charcot foot due to diabetes mellitus (2) Diabetes (3) Diabetic foot ulcer (4) Diabetic peripheral neuropathy associated with type 2 diabetes mellitus (5) EKG abnormalities (6) Foot deformity (7) Loss of sensation Family History Patient reports no known family medical history. Social History Smoking Status: Never Smoker Drug Use: none Marital Status: single Occupation Status: disabled Current/Historical Medications Scheduled Carvedilol (Coreg), 12.5 MG PO DAILY Ciprofloxacin Hcl (Cipro), 500 MG PO BID Insulin Glargine (Lantus), 70 UNITS SC BID Insulin Human Lispro (Humalog), 1 DOSE SQ UD Losartan Potassium (Cozaar), 100 MG PO QPM Rosuvastatin Calcium (Crestor), 5 MG PO QPM Venlafaxine Hcl (Effexor Xr), 300 MG PO QPM Scheduled PRN Cetirizine Hcl (Zyrtec), 1 TAB PO DAILY PRN for ALLERGIC REACTION Oxycodone/Acetaminophen 5MG/325MG (Percocet 5MG/325MG), 1-2 TABLETS PO Q4H PRN for Pain Allergies Coded Allergies: Adhesives (Verified Allergy, Severe, blisters, 08/11/17) Doxycycline (Verified Allergy, Severe, RASH, 08/11/17) Tetracycline (Verified Allergy, Severe, RASH, 08/11/17) Carvedilol (Verified Allergy, Intermediate, ANAPHYLAXIS, 08/11/17) Dalbavancin (Verified Allergy, Unknown, RASH, 08/11/17) Sulfa Antibiotics (Verified Allergy, Unknown, SULFA DIURETICS LIP AND TONGUE SWELLING, 08/11/17) Physical Exam Vital Signs Date Time Temp Pulse Resp B/P (MAP) Pulse Ox O2 Delivery O2 Flow Rate FiO2 11/30/17 18:32 185/120 11/30/17 18:08 86 16 211/93 94 Room Air 11/30/17 17:08 87 18 164/78 95 11/30/17 16:19 91 25 179/102 93 Room Air 11/30/17 15:28 88 11/30/17 15:15 96 Room Air 11/30/17 14:44 98 Room Air 11/30/17 14:39 37.9 95 22 180/102 98 Room Air Physical Exam GENERAL: Awake, alert, well-appearing, in no acute distress HENT: Normocephalic, atraumatic. Oropharynx unremarkable. EYES: Normal conjunctiva. Sclera non-icteric. NECK: Supple. No nuchal rigidity. FROM. No JVD. RESPIRATORY: Clear to auscultation. CARDIAC: 2/6 systolic murmur. Regular rate, normal rhythm. Extremities warm and well perfused. Pulses equal. ABDOMEN: Soft, non-distended. No tenderness to palpation. No rebound or guarding. No masses. RECTAL: Deferred. MUSCULOSKELETAL: Chest examination reveals no tenderness. The back is symmetrical on inspection without obvious abnormality. There is no CVA tenderness to palpation. No joint edema. LOWER EXTREMITIES: There is a splint on the right lower extremity. No edema. No discoloration. NEURO: Normal sensorium. No sensory or motor deficits noted. SKIN: No rash or jaundice noted. Medical Decision & Procedures ER Provider Diagnostic Interpretation: Radiology results as stated below per my review and radiologist interpretation: (CHEST FOR PE) ANGIO WITH CT DOSE: 575.49 mGycm HISTORY: 52 years-old Female with . Presents with acute atypical chest pain and elevated blood pressure TECHNIQUE: Multiple CTA images of the chest were obtained after the intravenous administration of 91 ml Optiray 320. Coronal and sagittal MIPS were obtained from the axial data set and were submitted for review. A dose lowering technique was utilized adhering to the principles of ALARA. COMPARISON: Chest radiograph 11/30/2017 FINDINGS: CTA: Heart is normal in size without pericardial effusion. Thoracic aorta is normal in both course and caliber without aneurysm or dissection the imaged great vessels appear to be patent. The pulmonary arterial tree is opacified to level of the proximal segmental branches with subsegmental branches not well opacified. No focal filling defects identified to suggest pulmonary thromboembolic disease. The imaged IVC appears unremarkable. CT CHEST: Mildly heterogeneous with punctate right thyroid lobe nodule and subcentimeter low attenuating lesions of the left thyroid lobe. Nonenlarged bilateral axillary and mediastinal lymph nodes are present without pathologic adenopathy by CT size criteria. There is no pneumothorax or pleural effusion. There is mild dependent subsegmental bibasilar atelectasis. No lobar airspace consolidation, suspicious pulmonary nodules or masses. Central airways are patent. No acute abnormality of the imaged upper abdomen, however structures are secured by patient motion. The bones appear to be intact. Multilevel endplate spurring of the spine. IMPRESSION: 1. No acute intrathoracic evaluate identified, specifically no acute aortic pathology or evidence of pulmonary thromboembolic disease. 2. No lobar airspace consolidation or pathologic adenopathy. The above report was generated using voice recognition software. It may contain grammatical, syntax or spelling errors. Electronically signed by: Zeke Alicia M.D. 11/30/2017 4:59 PM Dictated Date/Time: 11/30/2017 4:54 PM SINGLE VIEW CHEST CLINICAL HISTORY: Hypertension. FINDINGS: An AP, portable, upright chest radiograph is compared to study dated 02/17/2017. The examination is degraded by portable technique, large body habitus, and patient rotation. The cardiomediastinal silhouette is unremarkable. The lungs and pleural spaces are clear. No pneumothorax is seen. The bony thorax is grossly intact. IMPRESSION: No active disease in the chest. Electronically signed by: Neri Gould M.D. 11/30/2017 3:15 PM Dictated Date/Time: 11/30/2017 3:15 PM Laboratory Results 11/30/17 15:21 Red Blood Count 5.22, Mean Corpuscular Volume 83.0, Mean Corpuscular Hemoglobin 28.0, Mean Corpuscular Hemoglobin Concent 33.7, Mean Platelet Volume 8.5, Neutrophils (%) (Auto) 58.1, Lymphocytes (%) (Auto) 33.2, Monocytes (%) (Auto) 5.4, Eosinophils (%) (Auto) 2.8, Basophils (%) (Auto) 0.2, Neutrophils # (Auto) 7.10, Lymphocytes # (Auto) 4.06, Monocytes # (Auto) 0.66, Eosinophils # (Auto) 0.34, Basophils # (Auto) 0.03 11/30/17 15:21 Test 11/30/17 15:21 White Blood Count 12.23 K/uL (4.8-10.8) Red Blood Count 5.22 M/uL (4.2-5.4) Hemoglobin 14.6 g/dL (12.0-16.0) Hematocrit 43.3 % (37-47) Mean Corpuscular Volume 83.0 fL (80-100) Mean Corpuscular Hemoglobin 28.0 pg (25-34) Mean Corpuscular Hemoglobin Concent 33.7 g/dl (32-36) Platelet Count 416 K/uL (130-400) Mean Platelet Volume 8.5 fL (7.4-10.4) Neutrophils (%) (Auto) 58.1 % Lymphocytes (%) (Auto) 33.2 % Monocytes (%) (Auto) 5.4 % Eosinophils (%) (Auto) 2.8 % Basophils (%) (Auto) 0.2 % Neutrophils # (Auto) 7.10 K/uL (1.4-6.5) Lymphocytes # (Auto) 4.06 K/uL (1.2-3.4) Monocytes # (Auto) 0.66 K/uL (0.11-0.59) Eosinophils # (Auto) 0.34 K/uL (0-0.5) Basophils # (Auto) 0.03 K/uL (0-0.2) RDW Standard Deviation 41.0 fL (36.4-46.3) RDW Coefficient of Variation 13.6 % (11.5-14.5) Immature Granulocyte % (Auto) 0.3 % Immature Granulocyte # (Auto) 0.04 K/uL (0.00-0.02) Prothrombin Time 9.6 SECONDS (9.0-12.0) Prothromb Time International Ratio 0.9 (0.9-1.1) Activated Partial Thromboplast Time 24.1 SECONDS (21.0-31.0) Partial Thromboplastin Ratio 0.9 Anion Gap 6.0 mmol/L (3-11) Estimated GFR () 106.5 Estimated GFR (Non- 91.8 BUN/Creatinine Ratio 31.3 (10-20) Calcium Level 9.7 mg/dl (8.5-10.1) Total Bilirubin 0.3 mg/dl (0.2-1) Direct Bilirubin < 0.1 mg/dl (0-0.2) Aspartate Amino Transf (AST/SGOT) 12 U/L (15-37) Alanine Aminotransferase (ALT/SGPT) 21 U/L (12-78) Alkaline Phosphatase 117 U/L (45-117) Total Creatine Kinase 65 U/L (26-192) Creatine Kinase MB 1.7 ng/ml (0.5-3.6) Creatine Kinase MB Ratio 2.6 (0-3.0) Troponin I < 0.015 ng/ml (0-0.045) Pro-B-Type Natriuretic Peptide 116 pg/ml (0-900) Total Protein 7.1 gm/dl (6.4-8.2) Albumin 3.3 gm/dl (3.4-5.0) Lipase 135 U/L (73-393) Thyroid Stimulating Hormone (TSH) 3.810 uIu/ml (0.300-4.500) Labs reviewed by ED physician. Medications Administered Medications (Trade) Dose Ordered Sig/Sara Route Start Time Stop Time Status Last Admin Dose Admin Nitroglycerin (Nitrostat Tab) 0.4 mg Q5M PRN SL 11/30/17 16:15 11/30/17 19:03 DC 11/30/17 16:20 0.4 MG ECG Per My Interpretation Indication: other (Hypertension/EKG Changes ALUMINUM SIDING APPLICATOR ) Rate (beats per minute): 87 Rhythm: normal sinus Findings: ST depression (Lateral), other (No PVCs) Comparison ECG Date: Today, ALUMINUM SIDING APPLICATOR Change: ST-depressions have improved. ED Course 1442: Past medical records reviewed. The patient was evaluated in room A4A. A complete history and physical examination was performed. 1451: After review of the two EKGs that were performed today prior to arrival the patient does have some changes. The EKGs show that the T-wave inversions and the ST-depressions are worsening. 1614: Ordered [id number] mg PO, Nitroglycerin 0.4 mg SL. 164: I discussed the case with Stephanie Gross Internal Medicine SUSAN Collins. She will evaluate the patient for further treatment. Medical Decision Differential diagnosis: Etiologies such as benign hypertension, hypertensive emergency, cardiovascular pathology, pheochromocytoma, electrolyte abnormality, renal disease, endorgan damage, as well as others were entertained. This is a 52-year-old female who was sent in from her primary care physician's office over concerns of EKG changes along with neck pain. Patient was given aspirin in her primary care physician's office. I will note that the patient has had dynamic EKG changes performed at the PCPs office as well as the ambulance. She has T-wave inversions in her lateral leads however she has a normal CK-MB and troponin here in the emergency department. Her EKG again normalized here in the emergency department. Based on this finding I felt that the patient should be admitted Medication Reconcilliation Current Medication List: was personally reviewed by me Blood Pressure Screening Patient's blood pressure: Elevated blood pressure Referred to Hospitalist. Consults Time Called: 1641 Consulting Physician: Dr. Stephanie Gross [facility] Returned Call: 1647 I discussed the case with Dr. Stephanie Gross Internal Medicine. She will evaluate the patient for further treatment. Impression Primary Impression: Precordial chest pain Scribe Attestation The scribe's documentation has been prepared under my direction and personally reviewed by me in its entirety. I confirm that the note above accurately reflects all work, treatment, procedures, and medical decision making performed by me. Departure Information Dispostion Being Evaluated By Hospitalist Referrals Sara Aragon M.D. (PCP) Patient Instructions Formerly [facility], [facility]
--- NOTE | 2017-11-30 15:17 | DIAGNOSTIC IMAGING REPORT ---
SINGLE VIEW CHEST CLINICAL HISTORY: Hypertension. FINDINGS: An AP, portable, upright chest radiograph is compared to study dated 02/17/2017. The examination is degraded by portable technique, large body habitus, and patient rotation. The cardiomediastinal silhouette is unremarkable. The lungs and pleural spaces are clear. No pneumothorax is seen. The bony thorax is grossly intact. IMPRESSION: No active disease in the chest. Electronically signed by: Neri Gould M.D. 11/30/2017 3:15 PM Dictated Date/Time: 11/30/2017 3:15 PM
[2017-11-30 15:40] LABS: BASO % 0.2 %; BASO ABS # 0.03 K/uL (0-0.2); EOS % 2.8 %; EOS ABS # 0.34 K/uL (0-0.5); HEMATOCRIT 43.3 % (37-47); HEMOGLOBIN 14.6 g/dL (12.0-16.0); IG# 0.04 K/uL (0.00-0.02); LYMPH % 33.2 %; LYMPH ABS # 4.06 K/uL (1.2-3.4); MEAN CORPUSCULAR HGB CONC 33.7 g/dl (32-36); MEAN PLATELET VOLUME 8.5 fL (7.4-10.4); MONO % 5.4 %; MONO ABS # 0.66 K/uL (0.11-0.59); NEUT % 58.1 %; PLATELET COUNT 416 K/uL (130-400); RED CELL DISTRIBUTION WIDTH CV 13.6 % (11.5-14.5); WHITE BLOOD COUNT 12.23 K/uL (4.8-10.8)
[2017-11-30] MEDS ORDERED: ROSU5TAB PO (15:45)
[2017-11-30 15:52] LABS: INR 0.9 (0.9-1.1); PTT PATIENT 24.1 SECONDS (21.0-31.0)
[2017-11-30] MEDS ORDERED: CARV12.5 PO (15:53)
[2017-11-30 15:57] LABS: ALBUMIN 3.3 gm/dl (3.4-5.0); ALT/SGPT 21 U/L (12-78); BLOOD UREA NITROGEN 23 mg/dl (7-18); CALCIUM 9.7 mg/dl (8.5-10.1); CARBON DIOXIDE 27 mmol/L (21-32); CREATININE 0.74 mg/dl (0.60-1.20); GLUCOSE 114 mg/dl (70-99); LIPASE 135 U/L (73-393); POTASSIUM 3.9 mmol/L (3.5-5.1); SODIUM 137 mmol/L (136-145)
[2017-11-30 16:08] LABS: ALKALINE PHOSPHATASE 117 U/L (45-117); AST/SGOT 12 U/L (15-37); CKMB 1.7 ng/ml (0.5-3.6); TOTAL PROTEIN 7.1 gm/dl (6.4-8.2)
[2017-11-30] MEDS ORDERED: ASPIRIN 81 MG CHEW PO STA (16:14)
[2017-11-30] MEDS ORDERED: NITROGLYCERIN 0.4 MG SL PER TAB CHARGE SL PRN ×2 (16:15→18:45)
[2017-11-30] MEDS ORDERED: OPTIRAY 320 IV PRN (16:30)
--- NOTE | 2017-11-30 17:00 | DIAGNOSTIC IMAGING REPORT ---
(CHEST FOR PE) ANGIO WITH CT DOSE: 575.49 mGycm HISTORY: 52 years-old Female with . Presents with acute atypical chest pain and elevated blood pressure TECHNIQUE: Multiple CTA images of the chest were obtained after the intravenous administration of 91 ml Optiray 320. Coronal and sagittal MIPS were obtained from the axial data set and were submitted for review. A dose lowering technique was utilized adhering to the principles of ALARA. COMPARISON: Chest radiograph 11/30/2017 FINDINGS: CTA: Heart is normal in size without pericardial effusion. Thoracic aorta is normal in both course and caliber without aneurysm or dissection the imaged great vessels appear to be patent. The pulmonary arterial tree is opacified to level of the proximal segmental branches with subsegmental branches not well opacified. No focal filling defects identified to suggest pulmonary thromboembolic disease. The imaged IVC appears unremarkable. CT CHEST: Mildly heterogeneous with punctate right thyroid lobe nodule and subcentimeter low attenuating lesions of the left thyroid lobe. Nonenlarged bilateral axillary and mediastinal lymph nodes are present without pathologic adenopathy by CT size criteria. There is no pneumothorax or pleural effusion. There is mild dependent subsegmental bibasilar atelectasis. No lobar airspace consolidation, suspicious pulmonary nodules or masses. Central airways are patent. No acute abnormality of the imaged upper abdomen, however structures are secured by patient motion. The bones appear to be intact. Multilevel endplate spurring of the spine. IMPRESSION: 1. No acute intrathoracic evaluate identified, specifically no acute aortic pathology or evidence of pulmonary thromboembolic disease. 2. No lobar airspace consolidation or pathologic adenopathy. The above report was generated using voice recognition software. It may contain grammatical, syntax or spelling errors. Electronically signed by: Zeke Alicia M.D. 11/30/2017 4:59 PM Dictated Date/Time: 11/30/2017 4:54 PM
--- NOTE | 2017-11-30 17:48 | History and Physical ---
History & Physical Date & Time of Service: Nov 30, 2017 at 17:45 Chief Complaint: Referred By Md Primary Care Physician: Sara Aragon M.D. History of Present Illness Source: patient 52 year old female with pMHx of HTN, DMII, sleep apnea, anxiety presented to ER for evaluation of blood pressure She states she noted ongoing worsening in her BPs on her weekly visits to wound clinic for the diabetic ulcer on her right foot. 3 weeks ago, she saw her cook vacuum kettle, Yareil Ramos, who recommended starting furosemide in conjunction with her current losartan She states her regimen was PO Lasix 20mg on Mon and only Upon picking up her prescription, she was advised by the pharmacy to keep Benadryl on hand due to her sulfa allergy. Consequently, patient was taking 50mg Bendaryl with the Lasix. She began to experience 'side effects' with the Lasix including cramping of the extremities, abnormal uterine bleeding (menopausal, no bleeding currently), worsening of her chronic headaches and left sided neck pain with radiation to left shoulder down to left wrist. Pain was not alleviated by Tylenol or ibuprofen. Patient also began monitoring BP at home, and when she noted DBP 129, she became concerned. She was unable to see her cook vacuum kettle, but did see her PCP. Her PCP did an EKG and did not find anything concerning. She began monitoring her BP at home q4h and upon seeing 201/101, she took an extra dose losartan, coreg from a previous prescription and, zyrtec. This improved her BP to 165/95 and she presented to ED for evaluation. In the ED, EKG changes were noted upon comparison from EKGs performed by PCP and EMS. She denies new CP (has chronic 'tinges" without triggers ongoing intermittently for years), no dyspnea at rest, no back pain, minimal exertion due to her foot ulcer. She has ongoing nausea from daily cipro use for the diabtic ulcer, but no vomiting. She has intermittent diaphoresis, but not associated with her neck pain or exertion. No fevers/chills ROS otherwise unremarkable Past Medical/Surgical History Anxiety Borderline hyperlipidemia Charcot foot due to diabetes mellitus Diabetes mellitus, type II Depression Heart murmur Hypercalcemia Hypertension Kidney stones Sleep apnea Family History Patient reports no known family medical history. Unremarkable Social History Smoking Status: Never Smoker Smokeless Tobacco Use: No Drug Use: none Marital Status: single Occupational Status: disabled Allergies Coded Allergies: Adhesives (Verified Allergy, Severe, blisters, 08/11/17) Doxycycline (Verified Allergy, Severe, RASH, 08/11/17) Tetracycline (Verified Allergy, Severe, RASH, 08/11/17) Carvedilol (Verified Allergy, Intermediate, ANAPHYLAXIS, 08/11/17) Dalbavancin (Verified Allergy, Unknown, RASH, 08/11/17) Sulfa Antibiotics (Verified Allergy, Unknown, SULFA DIURETICS LIP AND TONGUE SWELLING, 08/11/17) Home Medications Scheduled Carvedilol (Coreg), 12.5 MG PO DAILY Ciprofloxacin Hcl (Cipro), 500 MG PO BID Insulin Glargine (Lantus), 70 UNITS SC BID Insulin Human Lispro (Humalog), 1 DOSE SQ UD Losartan Potassium (Cozaar), 100 MG PO QPM Rosuvastatin Calcium (Crestor), 5 MG PO QPM Venlafaxine Hcl (Effexor Xr), 300 MG PO QPM Scheduled PRN Cetirizine Hcl (Zyrtec), 1 TAB PO DAILY PRN for ALLERGIC REACTION Oxycodone/Acetaminophen 5MG/325MG (Percocet 5MG/325MG), 1-2 TABLETS PO Q4H PRN for Pain Physical Exam Vital Signs Date Time Temp Pulse Resp B/P (MAP) Pulse Ox O2 Delivery O2 Flow Rate FiO2 11/30/17 17:08 87 18 164/78 95 11/30/17 16:19 91 25 179/102 93 Room Air 11/30/17 15:28 88 11/30/17 15:15 96 Room Air 11/30/17 14:44 98 Room Air 11/30/17 14:39 37.9 95 22 180/102 98 Room Air General Appearance: WD/WN, no apparent distress, + obese Head: normocephalic, atraumatic Eyes: normal inspection, sclerae normal ENT: hearing grossly normal Neck: supple, no adenopathy, thyroid normal, no JVD, no carotid bruits, + pertinent finding (Point tender on cervical paraspinal muscle which reproduces neck pain) Respiratory/Chest: lungs clear, normal breath sounds, no respiratory distress, no accessory muscle use Cardiovascular: regular rate, rhythm, normal peripheral pulses Abdomen/GI: normal bowel sounds, non tender, soft Back: normal inspection, no CVA tenderness Extremities/Musculoskelatal: no calf tenderness, no pedal edema, + pertinent finding (Right lower leg casted) Neurologic/Psych: alert, normal mood/affect, oriented x 3 Skin: normal color, warm/dry, no rash Diagnostics Laboratory Results Results Past 24 Hours Test 11/30/17 15:21 Range/Units White Blood Count 12.23 4.8-10.8 K/uL Red Blood Count 5.22 4.2-5.4 M/uL Hemoglobin 14.6 12.0-16.0 g/dL Hematocrit 43.3 37-47 % Mean Corpuscular Volume 83.0 80-100 fL Mean Corpuscular Hemoglobin 28.0 25-34 pg Mean Corpuscular Hemoglobin Concent 33.7 32-36 g/dl Platelet Count 416 130-400 K/uL Mean Platelet Volume 8.5 7.4-10.4 fL Neutrophils (%) (Auto) 58.1 % Lymphocytes (%) (Auto) 33.2 % Monocytes (%) (Auto) 5.4 % Eosinophils (%) (Auto) 2.8 % Basophils (%) (Auto) 0.2 % Neutrophils # (Auto) 7.10 1.4-6.5 K/uL Lymphocytes # (Auto) 4.06 1.2-3.4 K/uL Monocytes # (Auto) 0.66 0.11-0.59 K/uL Eosinophils # (Auto) 0.34 0-0.5 K/uL Basophils # (Auto) 0.03 0-0.2 K/uL RDW Standard Deviation 41.0 36.4-46.3 fL RDW Coefficient of Variation 13.6 11.5-14.5 % Immature Granulocyte % (Auto) 0.3 % Immature Granulocyte # (Auto) 0.04 0.00-0.02 K/uL Prothrombin Time 9.6 9.0-12.0 SECONDS Prothromb Time International Ratio 0.9 0.9-1.1 Activated Partial Thromboplast Time 24.1 21.0-31.0 SECONDS Partial Thromboplastin Ratio 0.9 Sodium Level 137 136-145 mmol/L Potassium Level 3.9 3.5-5.1 mmol/L Chloride Level 104 98-107 mmol/L Carbon Dioxide Level 27 21-32 mmol/L Anion Gap 6.0 3-11 mmol/L Blood Urea Nitrogen 23 7-18 mg/dl Creatinine 0.74 0.60-1.20 mg/dl Estimated GFR () 106.5 Estimated GFR (Non- 91.8 BUN/Creatinine Ratio 31.3 10-20 Random Glucose 114 70-99 mg/dl Calcium Level 9.7 8.5-10.1 mg/dl Total Bilirubin 0.3 0.2-1 mg/dl Direct Bilirubin < 0.1 0-0.2 mg/dl Aspartate Amino Transf (AST/SGOT) 12 15-37 U/L Alanine Aminotransferase (ALT/SGPT) 21 12-78 U/L Alkaline Phosphatase 117 45-117 U/L Total Creatine Kinase 65 26-192 U/L Creatine Kinase MB 1.7 0.5-3.6 ng/ml Creatine Kinase MB Ratio 2.6 0-3.0 Troponin I < 0.015 0-0.045 ng/ml Pro-B-Type Natriuretic Peptide 116 0-900 pg/ml Total Protein 7.1 6.4-8.2 gm/dl Albumin 3.3 3.4-5.0 gm/dl Lipase 135 73-393 U/L Thyroid Stimulating Hormone (TSH) 3.810 0.300-4.500 uIu/ml Diagnostic Radiology SINGLE VIEW CHEST CLINICAL HISTORY: Hypertension. FINDINGS: An AP, portable, upright chest radiograph is compared to study dated 02/17/2017. The examination is degraded by portable technique, large body habitus, and patient rotation. The cardiomediastinal silhouette is unremarkable. The lungs and pleural spaces are clear. No pneumothorax is seen. The bony thorax is grossly intact. IMPRESSION: No active disease in the chest. (CHEST FOR PE) ANGIO WITH CT DOSE: 575.49 mGycm HISTORY: 52 years-old Female with . Presents with acute atypical chest pain and elevated blood pressure TECHNIQUE: Multiple CTA images of the chest were obtained after the intravenous administration of 91 ml Optiray 320. Coronal and sagittal MIPS were obtained from the axial data set and were submitted for review. A dose lowering technique was utilized adhering to the principles of ALARA. COMPARISON: Chest radiograph 11/30/2017 FINDINGS: CTA: Heart is normal in size without pericardial effusion. Thoracic aorta is normal in both course and caliber without aneurysm or dissection the imaged great vessels appear to be patent. The pulmonary arterial tree is opacified to level of the proximal segmental branches with subsegmental branches not well opacified. No focal filling defects identified to suggest pulmonary thromboembolic disease. The imaged IVC appears unremarkable. CT CHEST: Mildly heterogeneous with punctate right thyroid lobe nodule and subcentimeter low attenuating lesions of the left thyroid lobe. Nonenlarged bilateral axillary and mediastinal lymph nodes are present without pathologic adenopathy by CT size criteria. There is no pneumothorax or pleural effusion. There is mild dependent subsegmental bibasilar atelectasis. No lobar airspace consolidation, suspicious pulmonary nodules or masses. Central airways are patent. No acute abnormality of the imaged upper abdomen, however structures are secured by patient motion. The bones appear to be intact. Multilevel endplate spurring of the spine. IMPRESSION: 1. No acute intrathoracic evaluate identified, specifically no acute aortic pathology or evidence of pulmonary thromboembolic disease. 2. No lobar airspace consolidation or pathologic adenopathy. Impression Assessment and Plan 52 year old female with pMHx of HTN, DMII, sleep apnea, anxiety presented to ER with elevated BP and found to have EKG changes EKG changes - Cardiology consulted - Serial troponin - Echo ordered - Repeat EKG in AM - If persistent neck pain/high suspicion, may consider imaging to rule out stenosis/thrombus Uncontrolled HTN - Continue losartan - Hydralazine PRN SBP >185 HLD - Continue rosuvastatin DMII - Continue Lantus + ISS with checks ac/hs Diabetic right foot ulcer - Continue ciprofloxacin - Continue Percocet for pain Abnormal uterine bleeding - Patient denies any currently - Recommend outpatient gyne referral Anxiety - Continue velafaxine VTE ppx - Hep SC FULL CODE Resuscitation Status full code VTE Prophylaxis Will order VTE Prophylaxis: Yes Resident Tracking Resident Involvement: Resident Care Provided Care Provided: Adult Hospital Medicine Reviewed: Pt Seen/Exam by Me History Pt without chest pain currently. No SOB. Is very concerned about the financial issues of her observation status and is not sure if she will stay in the hospital overnight. She has been tolerating PO at home. She tried to take old medication for elevated BP but this did not help. Agree with HPI/ROS as noted by resident. General Appearance: no apparent distress, obese Eye Exam: bilateral eye normal inspection, bilateral eye other (nml sclera) Neck: tender lateral (on the L, point tender) Respiratory: normal breath sounds, no respiratory distress Cardiovascular: normal peripheral pulses, regular rate, rhythm Gastrointestinal: non tender, soft Extremities: non-tender, no pedal edema, other (R LE is bandaged) Neurologic/Psychiatric: alert, oriented x 3 Skin Characteristics: normal color, warm/dry Assessment/Plan Agree with plan as outlined above Chest pain r/o Trop neg, serials pending Consult cardiology ECHO Wound care c/s
[2017-11-30] MEDS ORDERED: ACETAMINOPHEN 325 MG TAB PO PRN (18:45)
[2017-11-30] MEDS ORDERED: ALUMINUM/MAGNESIUM/SIMETH (MAALOX MAX) 30 ML UDC PO PRN (18:45)
[2017-11-30] MEDS ORDERED: ONDANSETRON INJ 2 MG/ML 2 ML VIAL IV PRN (18:45)
[2017-11-30] MEDS ORDERED: MoRPHine SULFATE 2 MG/ML CARP IV PRN (18:45)
[2017-11-30] MEDS ORDERED: CETIRIZINE HCL 10 MG TAB PO PRN (18:45)
[2017-11-30] MEDS ORDERED: POLYETHYLENE (MIRALAX) 17 GM PACK PO PRN (18:45)
[2017-11-30] MEDS ORDERED: MAGNESIUM HYDROXIDE SUSP 30 ML UDC PO PRN (18:45)
[2017-11-30] MEDS ORDERED: GLUCAGON FOR INJ 1 MG VIAL SQ PRN (19:15)
[2017-11-30] MEDS ORDERED: GLUCOSE 40% GEL 15 GM TUBE PO PRN (19:15)
[2017-11-30] MEDS ORDERED: GLUCOSE 10 TABS/TUBE PO PRN (19:15)
[2017-11-30] MEDS ORDERED: HydrALAZINE HCL 20 MG/ML VIAL IV. PRN (20:00)
[2017-11-30] MEDS: INSULIN ASPART 100 UNITS/ML 3 ML PEN SC SCH (20:18)
[2017-11-30] MEDS: INSULIN GLARGINE SOLOSTAR 100 UNITS/ML 3 ML PEN SC SCH (20:20)
[2017-11-30] MEDS: CIPROFLOXACIN 500 MG TAB PO SCH (20:23)
[2017-11-30] MEDS ORDERED: HydrALAZINE HCL 20 MG/ML VIAL IV. STA (20:27)
[2017-11-30] MEDS ORDERED: LABETALOL HCL IV 5 MG/ML 20ML IV ONE (20:30)
--- NOTE | 2017-11-30 20:31 | Cardiology Progress Note ---
Cardiology Progress Note Date of Service Nov 30, 2017. Cardiology Progress Note Noted new patient on my census list, and performed chart review. Pt of Dr Saldivar, presented to ED with hypertensive urgency. Trop negative x 1 thus far, BP still elevated with SBP in the 180 range at most recent check. Considered ordering IV labetolol however pt has h/o "anaphylaxis" to Coreg per chart. I am currently at him, and since I have no more details of this history, will avoid beta genoveva this pm, and start with IV hydralazine 10 mg IV x 1 . PRN hydralazine order already written by admitting team. Pt due for losartan this evening as well. Will follow up and perform formal in person consult in am.
[2017-11-30] MEDS ORDERED: ROSUVASTATIN CALCIUM 10 MG TAB PO SCH (21:00)
[2017-11-30] MEDS ORDERED: VENLAFAXINE HCL XR 150 MG CAPXR PO SCH (21:00)
[2017-11-30] MEDS ORDERED: LOSARTAN POTASSIUM 50 MG TAB PO SCH (21:00)
[2017-11-30] MEDS ORDERED: IV FLUIDS COMPLETED PRN (21:45)
[2017-11-30] MEDS: HEPARIN SOD 5000 UNIT/0.5 ML CARP SQ SCH (22:00)
[2017-11-30 22:30] VITALS: BP 155/83; PULSE 82; TEMP 37; O2SAT 97; Ht 172.7 cm; Wt 125.7 kg
[2017-12-01] VITALS (18 sets, daily range): BP systolic 127–165; BP diastolic 62–87; PULSE 75–84; TEMP 36.4–36.8; O2SAT 92–98
[2017-12-01] MEDS: OXYCODONE/ACETAMINOPHEN 5-325 TAB PO PRN ×2 (02:14→07:39)
[2017-12-01] MEDS: HEPARIN SOD 5000 UNIT/0.5 ML CARP SQ SCH ×2 (06:00→14:00)
[2017-12-01 06:29] LABS: HEMATOCRIT 44.2 % (37-47); HEMOGLOBIN 14.4 g/dL (12.0-16.0); MEAN CORPUSCULAR HEMOGLOBIN 27.4 pg (25-34); MEAN CORPUSCULAR HGB CONC 32.6 g/dl (32-36); MEAN PLATELET VOLUME 8.5 fL (7.4-10.4); PLATELET COUNT 403 K/uL (130-400); RED CELL DISTRIBUTION WIDTH CV 13.9 % (11.5-14.5); RED CELL DISTRIBUTION WIDTH SD 41.7 fL (36.4-46.3); WHITE BLOOD COUNT 10.87 K/uL (4.8-10.8)
[2017-12-01 07:14] LABS: BLOOD UREA NITROGEN 21 mg/dl (7-18); CALCIUM 8.9 mg/dl (8.5-10.1); CARBON DIOXIDE 25 mmol/L (21-32); CREATININE 0.84 mg/dl (0.60-1.20); GLUCOSE 97 mg/dl (70-99); POTASSIUM 3.9 mmol/L (3.5-5.1); SODIUM 137 mmol/L (136-145)
[2017-12-01] MEDS: CIPROFLOXACIN 500 MG TAB PO SCH (08:26)
[2017-12-01] MEDS: INSULIN ASPART 100 UNITS/ML 3 ML PEN SC SCH ×2 (08:28→12:55)
[2017-12-01] MEDS: INSULIN GLARGINE SOLOSTAR 100 UNITS/ML 3 ML PEN SC SCH (08:30)
[2017-12-01] MEDS ORDERED: ASPIRIN 81 MG ECTAB PO SCH (09:00)
[2017-12-01] MEDS ORDERED: LABETALOL HCL 100 MG TAB PO ONE (09:40)
[2017-12-01] MEDS ORDERED: PERFLUTREN LIPID MICROSPHERE (DEFINITY) IV ONE (10:24)
--- NOTE | 2017-12-01 12:21 | Cardiology Consultation ---
Cardiology Consultation Date of Consultation: Dec 01, 2017 History of Present Illness Patient is a 52 year old female seen in cardiology consultation per the request of Dr De La Cruz and Dr Price for the evaluation of difficult to control hypertension and abnormal EKG. The patient recently relocated to the area having previously been followed by cardiology in [facility]. In the fall 2016 she had been seen by Dr. Alberto Saldivar of our practice and preoperative evaluation prior to an eardrum procedure by Dr. Deluna. Her most recent outpatient cardiology visit was on 11/13/17. At that time her blood pressure in the office was 128/66 however home blood pressure readings had been elevated with systolic readings in the 140-150 range and therefore furosemide 20 mg 2 times per week was recommended with plans to consider adding diltiazem or terazosin in the future if necessary. The patient has had multiple blood pressure medication intolerances before including intolerances to furosemide, Bumex, and torsemide per her recollection. She had severe rash with hydrochlorothiazide. She notes that for years when following with her primary cyber forensics analyst in [place] she was on losartan and carvedilol which seemed to control her blood pressure but the carvedilol has since been discontinued due to her having concerns of a numbness that comes on around her lips and tongue when she takes it. She notes no rash when taking carvedilol. She states that she has been on clonidine and this medication was ineffective in the past. The patient presents to the emergency room yesterday with recent elevated blood pressure readings that it been first noted when she was in the wound care clinic. At that time her diastolic blood pressure was 129 mmHg. She had gone home and she had taken her prior supply of carvedilol, and it continued her losartan, and she noted systolic blood pressure in the range of 200. She therefore presented to the emergency room yesterday with initial reading of 180/ 102. Her blood pressures remained elevated. I actually ordered 10 of IV hydralazine last evening by telephone, but it had not been administered because she had a follow-up blood pressure reading of 159/84. This had since trended higher in the lower again in the interim. There is been concerned about the patient having chest discomfort. Per her description to me she states that she gets very brief episodes of chest discomfort that only last a fraction of a second and go away and are atypical in character for angina. Apparently approximately 2 years ago she had a past stress test after which time conservative management was recommended. She has never had a heart catheterization. EKG performed on arrival last evening and again this morning reveals sinus rhythm with T-wave inversions noted in the high lateral leads I and aVL. I printed an EKG that had been performed on a preoperative basis at our office in July 2017 which also shows the T-wave inversions in lead I and aVL, and is relatively unchanged compared to the current tracings. Past Medical/Surgical History Problem List: Medical Problems: (1) Charcot foot due to diabetes mellitus (2) Diabetes (3) Diabetic foot ulcer (4) Diabetic peripheral neuropathy associated with type 2 diabetes mellitus (5) EKG abnormalities (6) Foot deformity (7) Loss of sensation History Past Medical History: 1. Long-standing diabetes mellitus with neuropathy dating back to 1995 2. Charcot foot, with MRSA ulceration, treated by wound care clinic and infectious disease, currently on chronic ciprofloxacin therapy 3. Hypertension, difficult to control 4. Obstructive sleep apnea 5. History of pulmonary hypertension on echocardiogram 6. History of chronic abnormal EKG 7. Dyslipidemia 8. 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 Family History: Notable for coronary artery disease in both parents and maternal grandfather in his 50s Review Of Systems A 10 point review of systems is reviewed and is negative with exception of that above Allergies Coded Allergies: Adhesives (Verified Allergy, Severe, blisters, 08/11/17) Doxycycline (Verified Allergy, Severe, RASH, 08/11/17) Tetracycline (Verified Allergy, Severe, RASH, 08/11/17) Carvedilol (Verified Allergy, Intermediate, ANAPHYLAXIS, 08/11/17) Dalbavancin (Verified Allergy, Unknown, RASH, 08/11/17) Sulfa Antibiotics (Verified Allergy, Unknown, SULFA DIURETICS LIP AND TONGUE SWELLING, 08/11/17) Medications Reported Home Medications Medications Dose Route/Sig Max Daily Dose Days Date Category Dose Instructions Coreg (Carvedilol) 12.5 Mg Tab 12.5 Mg PO DAILY 11/30/17 Reported Crestor (Rosuvastatin Calcium) 5 Mg Tab 5 Mg PO QPM 11/30/17 Reported Cipro (Ciprofloxacin Hcl) 500 Mg Tab 500 Mg PO BID 30 09/28/17 Rx Percocet 5MG/325MG (Oxycodone/Acetaminophen) Tab 1-2 Tablets PO Q4H PRN 08/11/17 Rx Effexor Xr (Venlafaxine Hcl) 150 Mg Cap 300 Mg PO QPM 30 08/03/17 Reported Humalog (Insulin Human Lispro) 1 Ea Inj 1 Dose SQ UD 02/17/17 Reported INJECT ONE DOSE PER SLIDING SCALE THREE TIMES A DAY WITH MEALS SLIDING SCALE IS 200-250 = 5 UNITS WITH EACH 100 INCREASE IN BS INCREASE UNITS BY 5 Cozaar (Losartan Potassium) 100 Mg Tab 100 Mg PO QPM 01/19/17 Reported Zyrtec (Cetirizine Hcl) 10 Mg Tab 1 Tab PO DAILY PRN 30 01/18/17 Reported Lantus (Insulin Glargine) 100 Unit/Ml Inj 70 Units SC BID 01/18/17 Reported Physical Exam Vital Signs (Last 8hrs): Last 8 Hrs Date Time Temp Pulse Resp B/P (MAP) Pulse Ox O2 Delivery O2 Flow Rate FiO2 12/01/17 08:00 97 Room Air 12/01/17 08:00 36.5 83 19 136/73 (94) 93 Room Air 12/01/17 07:52 82 12/01/17 04:00 97 Room Air 12/01/17 04:00 36.5 78 14 165/83 (110) 92 General Appearance: Alert and Oriented x3. NAD. Head: Normocephalic Atraumatic. Eyes: PERRLA, EOMI, conjunctiva and sclera clear Neck: Supple. No carotid bruits noted. No JVD. No HJD. Respiratory: Breath sounds clear to auscultation bilaterally. No w/r/r. Cardiovascular: Reg rate and rhythm. S1 and S2 noted. No murmurs, rubs, gallops. PMI non displace. Abdomen: Normal bowel sounds, soft nontender. no abdominal bruits. Extremities: Right lower leg is wrapped, she is seeing the wound care clinic for this Neuro: No focal deficits. Psychiatric: Normal affect. Data Last 24 Hours Test 11/30/17 15:21 11/30/17 20:08 12/01/17 00:24 12/01/17 06:08 White Blood Count 12.23 K/uL Red Blood Count 5.22 M/uL Hemoglobin 14.6 g/dL Hematocrit 43.3 % Mean Corpuscular Volume 83.0 fL Mean Corpuscular Hemoglobin 28.0 pg Mean Corpuscular Hemoglobin Concent 33.7 g/dl Platelet Count 416 K/uL Mean Platelet Volume 8.5 fL Neutrophils (%) (Auto) 58.1 % Lymphocytes (%) (Auto) 33.2 % Monocytes (%) (Auto) 5.4 % Eosinophils (%) (Auto) 2.8 % Basophils (%) (Auto) 0.2 % Neutrophils # (Auto) 7.10 K/uL Lymphocytes # (Auto) 4.06 K/uL Monocytes # (Auto) 0.66 K/uL Eosinophils # (Auto) 0.34 K/uL Basophils # (Auto) 0.03 K/uL RDW Standard Deviation 41.0 fL RDW Coefficient of Variation 13.6 % Immature Granulocyte % (Auto) 0.3 % Immature Granulocyte # (Auto) 0.04 K/uL Prothrombin Time 9.6 SECONDS Prothromb Time International Ratio 0.9 Activated Partial Thromboplast Time 24.1 SECONDS Partial Thromboplastin Ratio 0.9 Sodium Level 137 mmol/L Potassium Level 3.9 mmol/L Chloride Level 104 mmol/L Carbon Dioxide Level 27 mmol/L Anion Gap 6.0 mmol/L Blood Urea Nitrogen 23 mg/dl Creatinine 0.74 mg/dl Estimated GFR () 106.5 Estimated GFR (Non- 91.8 BUN/Creatinine Ratio 31.3 Random Glucose 114 mg/dl Calcium Level 9.7 mg/dl Total Bilirubin 0.3 mg/dl Direct Bilirubin < 0.1 mg/dl Aspartate Amino Transf (AST/SGOT) 12 U/L Alanine Aminotransferase (ALT/SGPT) 21 U/L Alkaline Phosphatase 117 U/L Total Creatine Kinase 65 U/L Creatine Kinase MB 1.7 ng/ml Creatine Kinase MB Ratio 2.6 Troponin I < 0.015 ng/ml < 0.015 ng/ml Pro-B-Type Natriuretic Peptide 116 pg/ml Total Protein 7.1 gm/dl Albumin 3.3 gm/dl Lipase 135 U/L Thyroid Stimulating Hormone (TSH) 3.810 uIu/ml Bedside Glucose 213 mg/dl 96 mg/dl Test 12/01/17 06:22 12/01/17 06:48 White Blood Count 10.87 K/uL Red Blood Count 5.26 M/uL Hemoglobin 14.4 g/dL Hematocrit 44.2 % Mean Corpuscular Volume 84.0 fL Mean Corpuscular Hemoglobin 27.4 pg Mean Corpuscular Hemoglobin Concent 32.6 g/dl RDW Standard Deviation 41.7 fL RDW Coefficient of Variation 13.9 % Platelet Count 403 K/uL Mean Platelet Volume 8.5 fL Sodium Level 137 mmol/L Potassium Level 3.9 mmol/L Chloride Level 105 mmol/L Carbon Dioxide Level 25 mmol/L Anion Gap 7.0 mmol/L Blood Urea Nitrogen 21 mg/dl Creatinine 0.84 mg/dl Est Creatinine Clear Calc Drug Dose 107.2 ml/min Estimated GFR () 91.3 Estimated GFR (Non- 78.8 BUN/Creatinine Ratio 25.5 Random Glucose 97 mg/dl Calcium Level 8.9 mg/dl Troponin I < 0.015 ng/ml EKG tracings as outlined above Assessment & Plan Transthoracic echocardiogram performed this morning and reviewed in palate by the undersigned revealed mild concentric left ventricular hypertrophy with normal biventricular systolic function and normal to hyperdynamic LVEF. No regional wall motion abnormalities were noted. No significant valvular heart disease was noted. Doppler findings were not suggestive of significant pulmonary hypertension. Impression: 52-year-old female 1. Difficult to control hypertension blood pressure has trended toward improvement this morning with most recent reading of 136/73 2. Atypical chest discomfort, patient describes this has been chronic, in no acute, and this was not what prompted her come to the emergency room. She came into the emergency room because she was concerned about having high blood pressure. 3. Long-standing history of diabetes 4. Multiple medication intolerances as listed above with past intolerances to multiple blood pressure medications 5. MRSA wound of right foot, for which he is on ciprofloxacin and is cared for by wound care clinic and infectious disease Recommendations: Repeat EKG findings were noted above. In comparison to office EKG dating back to August 09, 2017, the ST changes in leads I and aVL are chronic. The patient was already tentatively scheduled to have both an echocardiogram and a pharmacologic nuclear stress test in our office. This had been canceled last week due to a scheduling issue. I have contacted our office and have asked for her echo to be canceled and an effort will be made to contact the patient to reschedule her stress test. I do not feel the chest discomfort that the patient described on presentation of the emergency room is an acute finding, and outpatient evaluation had already been planned based on her significant risk factors. I do not think she is currently experiencing an acute coronary syndrome. Her blood pressure is to be reassessed post administration of labetalol 100 mg. If her blood pressure is stable, plan to discharge her on 100 mg p.o. twice daily with plans to increase this as necessary as an outpatient.
--- NOTE | 2017-12-01 12:22 | ECHOCARDIOGRAM REPORT ---
*NOTICE TO RECEIVING LIBERTARIAN AGENCY This information is strictly Confidential and protected under [place] law. [place] law prohibits you from making any further disclosure of this information unless further disclosure is expressly permitted by the written consent of the person to whom it pertains or is authorized by law. A general authorization for the release of medical or other information is not sufficient for this purpose. Hospital accepts no responsibility if the information is made available to any other person, INCLUDING THE PATIENT. Interpretation Summary * The study was technically adequate. * -- Conclusions -- * No regional wall motion abnormalities noted. * There is mild concentric left ventricular hypertrophy. * Left ventricular systolic function is normal. * LV Ejection Fraction = 65-70%. * Aortic valve sclerosis mild, without significant aortic valvular stenosis. * Grade I diastolic dysfunction, (abnormal relaxation pattern). Procedure Details * A complete two-dimensional transthoracic echocardiogram was performed (2D, M-mode, Doppler and color flow Doppler). * A contrast injection of Definity was performed to improve assessment of LV function. * Contrast was injected into an intravenous site in the right arm. * One vial of Definity ultrasound contrast was diluted in normal saline to a total volume of 10 ml. A total of '1' ml of solution was administered during imaging. * Lot # [id number] of Definity utilized for procedure. * Expiration date . * The attending nurse who injected the contrast agent was Erwin Lind RN. Left Ventricle * The left ventricle is normal in size. * There is mild concentric left ventricular hypertrophy. * Left ventricular systolic function is normal. * Ejection Fraction = 65-70%. * No regional wall motion abnormalities noted. Right Ventricle * The right ventricle is normal size. * The right ventricular systolic function is normal as assessed by tricuspid annular plane systolic excursion (TAPSE) (normal >1.5 cm). Atria * The left atrial size is normal. * Right atrial size is normal. * There is no evidence of atrial septal defect, but resolution does not allow assessment for a patent foramen ovale. Mitral Valve * The mitral valve is normal. * There is no mitral valve stenosis. * Significant mitral regurgitation is absent. Tricuspid Valve * The tricuspid valve is normal. * There is no tricuspid stenosis. * Significant tricuspid regurgitation is absent. Aortic Valve * The aortic valve is trileaflet. * Aortic valve sclerosis mild, without significant aortic valvular stenosis. * Aortic stenosis is absent. * There is no significant aortic regurgitation. Pulmonic Valve * The pulmonary valve is not well seen, but the Doppler examination is normal without significant regurgitation or stenosis. Great Vessels * The aortic root and proximal ascending aorta are normal sized. Pericardium/Pleural * There is no pericardial effusion. Great Vessels * Normal inferior vena cava diameter and respiratory variation suggests normal central venous pressure. * Normal inferior vena cava size and collapsability with sniff indicates a normal right atrial pressure of 3 mmHg Left Ventricular Diastolic Function * Grade I diastolic dysfunction, (abnormal relaxation pattern). MMode 2D Measurements and Calculations IVSd 0.99 cm IVSs 1.1 cm LVIDd 3.7 cm LVIDs 2.4 cm LVPWd 0.89 cm LVPWs 1.1 cm IVS/LVPW 1.1 FS 36.6 % EDV(Teich) 60.0 ml ESV(Teich) 19.7 ml EF(Teich) 67.1 % EDV(cubed) 52.7 ml ESV(cubed) 13.5 ml EF(cubed) 74.5 % % IVS thick 14.3 % % LVPW thick 24.3 % LV mass(C)d 105.5 grams LV mass(C)dI 46.4 grams/m\S\2 LV mass(C)s 71.5 grams LV mass(C)sI 31.5 grams/m\S\2 SV(Teich) 40.3 ml SI(Teich) 17.7 ml/m\S\2 SV(cubed) 39.2 ml SI(cubed) 17.3 ml/m\S\2 Ao root diam 2.9 cm Ao root area 6.5 cm\S\2 ACS 1.2 cm LA dimension 4.1 cm asc Aorta Diam 2.7 cm LA/Ao 1.4 EDV(MOD-sp4) 93.8 ml ESV(MOD-sp4) 20.9 ml EF(MOD-sp4) 77.7 % EDV(MOD-sp2) 103.4 ml ESV(MOD-sp2) 38.5 ml EF(MOD-sp2) 62.7 % SV(MOD-sp4) 72.9 ml SI(MOD-sp4) 32.1 ml/m\S\2 SV(MOD-sp2) 64.9 ml SI(MOD-sp2) 28.6 ml/m\S\2 Doppler Measurements and Calculations MV E max jordon 64.3 cm/sec MV A max jordon 91.9 cm/sec MV E/A 0.70 MV P1/2t max jordon 70.3 cm/sec MV P1/2t 73.7 msec MVA(P1/2t) 3.0 cm\S\2 MV dec slope 279.5 cm/sec\S\2 MV dec time 0.26 sec Ao V2 max 110.2 cm/sec Ao max PG 4.9 mmHg Ao max PG (full) 2.0 mmHg LV V1 max PG 2.9 mmHg LV V1 max 84.6 cm/sec PA V2 max 99.7 cm/sec PA max PG 4.0 mmHg TR max jordon 205.7 cm/sec
[2017-12-01] MEDS ORDERED: LBT100 PO (15:04)
--- NOTE | 2017-12-01 16:07 | Discharge Instructions ---
Discharge Instructions Date of Service Dec 01, 2017. Admission Reason for Admission: Ekg Abnormalities Discharge Discharge Diagnosis / Problem: Uncontrolled hypertension Discharge Goals Goal(s): Improve disease control, Diagnostic testing, Therapeutic intervention Activity Recommendations Activity Limitations: resume your previous activity . Instructions / Follow-Up Instructions / Follow-Up You managed in the hospital for uncontrolled hypertension and was found to have some EKG changes. Cardiology was consulted, and noted the EKG changes to be chronic and have added labetalol 100mg twice daily to your medication regimen to help lower the blood pressure. Please discontinue the furosemide, but continue all other medication as previous. On discharge, follow up with your head chef will be arranged and a stress test will be scheduled. Follow up with your PCP is also recommended to discuss referral for sleep study since you are unable to access your previous CPAP machine, and referral to audiology director given your recent abnormal uterine bleeding. Thank you for allowing us to participate in your care. Current Hospital Diet Patient's current hospital diet: Diabetes Type 2 Diet Discharge Diet Recommended Diet: Diabetes Type 2 Diet Pending Studies Studies pending at discharge: no Medical Emergencies . Who to Call and When: Medical Emergencies: If at any time you feel your situation is an emergency, please call 911 immediately. . Non-Emergent Contact Non-Emergency issues call your: Primary Care Provider, Financial Operations Clerk . . "Provider Documentation" section prepared by Chasity Price. . Resident Tracking Resident Involvement: Resident Care Provided Care Provided: Adult Hospital Medicine
--- NOTE | 2017-12-01 16:08 | Discharge Summary ---
Discharge Summary Date of Service Dec 01, 2017. Discharge Summary Admission Date: Nov 30, 2017 at 18:43 Discharge Date: Dec 01, 2017 Discharge Disposition: Home Principal Diagnosis: Uncontrolled HTN Consultations: cardiology Medication Reconciliation New Medications: Labetalol HCl (Labetalol HCl) 100 Mg Tab 100 MG PO BID, #60 TAB 2 Refills Continued Medications: Carvedilol (Coreg) 12.5 Mg Tab 12.5 MG PO DAILY, TAB Cetirizine Hcl (Zyrtec) 10 Mg Tab 1 TAB PO DAILY PRN for ALLERGIC REACTION for 30 Days, #30 TAB 5 Refills Ciprofloxacin Hcl (Cipro) 500 Mg Tab 500 MG PO BID for 30 Days, #60 TAB 2 Refills Insulin Glargine (Lantus) 100 Unit/Ml Inj 70 UNITS SC BID, VIAL Insulin Human Lispro (Humalog) 1 Ea Inj 1 DOSE SQ UD for SLIDING SCALE INJECT ONE DOSE PER SLIDING SCALE THREE TIMES A DAY WITH MEALS SLIDING SCALE IS 200-250 = 5 UNITS WITH EACH 100 INCREASE IN BS INCREASE UNITS BY 5 Losartan Potassium (Cozaar) 100 Mg Tab 100 MG PO QPM, TAB Oxycodone/Acetaminophen 5MG/325MG (Percocet 5MG/325MG) Tab 1-2 TABLETS PO Q4H PRN for Pain, #30 TAB Rosuvastatin Calcium (Crestor) 5 Mg Tab 5 MG PO QPM, TAB Venlafaxine Hcl (Effexor Xr) 150 Mg Cap 300 MG PO QPM for 30 Days, CAP 2 Refills Discharge Exam Patient well, denies acute overnight events. No chest pain, no palpitations, no dyspnea at rest. No current headache or neck pain. He otherwise denies fevers/chills, abdominal pain, is tolerating diet without nausea or vomiting, and denies issues with voiding and stooling. She is keen for home. ROS is unremarkable except as noted above. Physical Exam General Appearance: WD/WN, no apparent distress, + obese Head: normocephalic, atraumatic Eyes: normal inspection, sclerae normal ENT: hearing grossly normal Neck: supple, no adenopathy, thyroid normal, no JVD, no carotid bruits, + pertinent finding (Point tender on cervical paraspinal muscle which reproduces neck pain) Respiratory/Chest: lungs clear, normal breath sounds, no respiratory distress, no accessory muscle use Cardiovascular: regular rate, rhythm, normal peripheral pulses Abdomen/GI: normal bowel sounds, non tender, soft Back: normal inspection, no CVA tenderness Extremities/Musculoskelatal: no calf tenderness, no pedal edema, + pertinent finding (Right lower leg casted) Neurologic/Psych: alert, normal mood/affect, oriented x 3 Skin: normal color, warm/dry, no rash Hospital Course 52 year old female with pMHx of HTN, DMII, sleep apnea, anxiety presented to ER with elevated BP and found to have EKG changes EKG changes and chest pain Serial troponin negative. Cardiology was consulted and noted the EKG changes to be chronic. Echo showed mild concentric LVH. No regional wall motion abnormalities noted. Normal LV systolic function with EF = 65-70%. Aortic valve sclerosis mild, without significant aortic valvular stenosis. Grade I diastolic dysfunction, ( abnormal relaxation pattern). - On discharge, follow up with your thrill performer will be arranged and a stress test will be scheduled. Uncontrolled HTN likely sec to sleep apnea - Continue losartan plus newly prescribed labetalol 100mg twice daily - with blood pressure improvement. Discontinue the furosemide. - hasn't been able to use his cpap due to the move. ?Sleep apnea Patient is unable to access previous CPAP machine. - Follow up with your PCP is also recommended to discuss referral for sleep study for arranging new cpap Abnormal uterine bleeding Patient denies any currently - Please discuss referral to gynecology with your PCP HLD - Continue rosuvastatin DMII - Continue home regimen Diabetic right foot ulcer - Continue ciprofloxacin, Percocet for pain, and continue following up with wound clinic Anxiety - Continue venlafaxine FULL CODE Total Time Spent: Greater than 30 minutes This includes examination of the patient, discharge planning, medication reconciliation, and communication with other providers. Discharge Instructions Please refer to the electronic Patient Visit Report (Discharge Instructions) for additional information. Additional Copies To Sara Aragon M.D. Resident Tracking Resident Involvement: Resident Care Provided Care Provided: Adult Hospital Medicine Reviewed: Pt Seen/Exam by Me History no concerns Constitutional: denies: fever Respiratory: negative: short of breath Cardiovascular: denies chest pain General Appearance: no apparent distress Respiratory: lungs clear, no respiratory distress Cardiovascular: regular rate, rhythm Neurologic/Psychiatric: alert, oriented x 3 Skin Characteristics: warm/dry Assessment/Plan Resident Physician Supervision Note: I independently interviewed and examined the patient and verified the tan history and physical, reviewed labs and image studies, discussed the case with the resident Dr. Price and agree with the findings and care plan. Time spent in discharge 35 min
[2017-12-01] MEDS ORDERED: LABETALOL HCL 100 MG TAB PO SCH (21:00)
== END 2017-12-01 15:30 | disposition home or self-care (01) ==
LOC: EDBD 14:22 → C.EDA 14:24 → C.EDINP 18:43 → EDBEDREQ 19:47 → C.EDINP 21:20 → CANRESERV 21:22 → ENRESERV 21:22 → EDBEDREQ 21:36
PROVIDERS: ADMIT Family Medicine; ATTEND Family Medicine
DX: I10 Essential (primary) hypertension (principal); E11.9 Type 2 diabetes mellitus without complications; G47.33 Obstructive sleep apnea (adult) (pediatric); E78.5 Hyperlipidemia, unspecified; F41.9 Anxiety disorder, unspecified; Z79.4 Long term (current) use of insulin; Z98.890 Other specified postprocedural states; Z79.899 Other long term (current) drug therapy; Z88.1 Allergy status to other antibiotic agents; Z88.2 Allergy status to sulfonamides

== ENCOUNTER → 2018-01-01 | Outpatient (CLI) | payer BC ==
[~2018-01-01] MED LIST changes: +CARV12.5 PO; -FURO-85 PO; -OXYC-57 PO; +ROSU5TAB PO; +[UNRECOGNIZED DRUG - CODE] IV
--- NOTE | 2018-01-01 16:06 | DIAGNOSTIC IMAGING REPORT ---
R VENOUS DOPP LOWER EXT UNILAT CLINICAL HISTORY: 52 years-old Female presenting with SWELLING RT LOWER Ext, neuropathy RT FOOT. TECHNIQUE: Real-time grayscale and color and spectral Doppler ultrasound imaging of the veins of the right lower extremity was performed. Compression and augmentation were also utilized. COMPARISON: None. FINDINGS: Right: Common femoral vein: Patent. Greater saphenous vein: Patent. Deep femoral vein: Patent. Femoral vein: Patent. Popliteal vein: Patent. Calf veins: Patent. Other: None. IMPRESSION: No evidence of deep venous thrombosis. Electronically signed by: Salas Read M.D. 01/01/2018 4:04 PM Dictated Date/Time: 01/01/2018 4:04 PM
--- NOTE | 2018-01-01 16:09 | DIAGNOSTIC IMAGING REPORT ---
R ART DOP DUPLEX LWR EXT UNI HISTORY: 52 years-old Female SWELLING RT LOWER EXT,NEUROPATHY RT FOOT acute swelling of the right lower extremity with peripheral neuropathy COMPARISON: CT 02/16/2017 TECHNIQUE: Multiple real-time sonogram images of the right lower extremity arterial structures were obtained assessing grayscale appearance, color and spectral flow. ABIs were also submitted bilaterally. FINDINGS: ADELE's: RIGHT-brachial measures 158. The posterior tibial and dorsalis pedis arteries are noncompressible. LEFT-brachial artery measures 160. The posterior tibial artery is noncompressible. Dorsalis pedis artery measures 196, 1.23. Minimal areas of atrophy chronic plaquing are noted throughout the right lower extremity. No elevated peak systolic velocities identified to suggest high-grade narrowing. Triphasic waveforms are seen within the common femoral, profunda femoris, superficial femoral, popliteal, anterior tibial and dorsalis pedis arteries. Biphasic waveforms are seen within the peroneal artery proximally with monophasic waveforms in the distal peroneal artery. Biphasic waveforms in the distal aspect of the dorsalis pedis artery. IMPRESSION: 1. Noncompressible vessels on the right limits evaluation for evaluation of ADELE's. 2. No elevated velocities identified to suggest high-grade luminal narrowing. 3. Monophasic waveforms within the distal peroneal artery. 4. No evidence of significant inflow disease. The above report was generated using voice recognition software. It may contain grammatical, syntax or spelling errors. Electronically signed by: Zeke Alicia M.D. 01/01/2018 4:08 PM Dictated Date/Time: 01/01/2018 4:04 PM
== END | disposition home or self-care (01) ==
LOC: C.ULTR 13:48
PROVIDERS: ATTEND Orthopaedic Surgery Sports Medicine
DX: R60.0 Localized edema (principal); G57.91 Unspecified mononeuropathy of right lower limb

== ENCOUNTER → 2018-01-16 | Outpatient (CLI) | payer BC ==
--- NOTE | 2018-01-22 14:33 | MAMMOGRAPHY REPORT ---
BILATERAL DIGITAL SCREENING MAMMOGRAM TOMOSYNTHESIS WITH CAD: 01/16/2018 CLINICAL HISTORY: Routine screening. Patient has no complaints. TECHNIQUE: Breast tomosynthesis in addition to standard 2D mammography was performed. Current study was also evaluated with a Computer Aided Detection (CAD) system. COMPARISON: Comparison is made to exams dated: 01/05/2017 mammogram, 08/27/2015 mammogram, 04/16/2014 mammogram, 04/11/2014 mammogram, 01/11/2013 mammogram, and 11/13/2009 mammogram - [facility] [place]. BREAST COMPOSITION: There are scattered areas of fibroglandular density in both breasts. FINDINGS: No suspicious spiculated or irregular mass, architectural distortion or cluster of microca lcifications is seen. There is stable nodularity in the right upper outer quadrant and a few scatter ed stable benign-appearing microcalcifications. IMPRESSION: ACR BI-RADS CATEGORY 1: NEGATIVE There is no mammographic evidence of malignancy. A 1 year screening mammogram is recommended. The pa tient will receive written notification of the results. Approximately 10% of breast cancers are not detected with mammography. A negative mammographic report should not delay biopsy if a clinically suggestive mass is present. Lola Regalado M.D. ay/:01/22/2018 12:36:05 Marine Service Manager: Maria Isabel SALCIDO)(Lucia), [facility] letter sent: Normal 1/2 BI-RADS Code: ACR BI-RADS Category 1: Negative
== END | disposition home or self-care (01) ==
LOC: C.MAMM 14:34
PROVIDERS: ATTEND Physician Assistant
DX: Z12.31 Encounter for screening mammogram for malignant neoplasm of breast (principal)

== ENCOUNTER → 2018-03-05 | Outpatient (CLI) | payer BC ==
[~2018-03-05] MED LIST changes: +ASPI81TA28 PO; -CIPR-255 PO; +CRS20 PO; +DAPT500I IV; +DAPTOMYCIN CONSULT ACTIVE; +DIPH1TAB87 PO; +ERTA1INJ IV; +LVQ750 PO; +NTRGSL/4 UT; +NTRGSL4 SL; +RIFA300C34 PO; -VENL150C PO; +VENL150C2 PO; +[UNRECOGNIZED DRUG - CODE]; -[UNRECOGNIZED DRUG - CODE] IV
[2018-03-05 15:50] LABS: BASO % 0.3 %; BASO ABS # 0.03 K/uL (0-0.2); EOS % 2.7 %; EOS ABS # 0.26 K/uL (0-0.5); HEMATOCRIT 36.5 % (37-47); IG# 0.05 K/uL (0.00-0.02); LYMPH ABS # 3.34 K/uL (1.2-3.4); MEAN CELL VOLUME 82.4 fL (80-100); MEAN CORPUSCULAR HEMOGLOBIN 27.1 pg (25-34); MEAN CORPUSCULAR HGB CONC 32.9 g/dl (32-36); MEAN PLATELET VOLUME 8.3 fL (7.4-10.4); MONO % 7.3 %; NEUT % 54.2 %; NEUT ABS # 5.17 K/uL (1.4-6.5); PLATELET COUNT 356 K/uL (130-400); RED CELL DISTRIBUTION WIDTH CV 13.9 % (11.5-14.5); WHITE BLOOD COUNT 9.55 K/uL (4.8-10.8)
[2018-03-05 16:02] LABS: ALBUMIN 3.3 gm/dl (3.4-5.0); ALKALINE PHOSPHATASE 150 U/L (45-117); ALT/SGPT 23 U/L (12-78); AST/SGOT 18 U/L (15-37); BLOOD UREA NITROGEN 19 mg/dl (7-18); CALCIUM 9.4 mg/dl (8.5-10.1); CARBON DIOXIDE 27 mmol/L (21-32); CREATININE 1.29 mg/dl (0.60-1.20); GLUCOSE 266 mg/dl (70-99); POTASSIUM 4.1 mmol/L (3.5-5.1); SODIUM 136 mmol/L (136-145); TOTAL PROTEIN 6.9 gm/dl (6.4-8.2)
== END | disposition home or self-care (01) ==
LOC: C.LABSPEC 14:39
PROVIDERS: ATTEND Family Medicine
DX: Z01.89 Encounter for other specified special examinations (principal)

== ENCOUNTER → 2018-04-02 | Outpatient (CLI) | payer BC ==
[~2018-04-02] MED LIST changes: -CRS20 PO; -DAPTOMYCIN CONSULT ACTIVE; -LVQ750 PO; -NTRGSL4 SL; -RIFA300C34 PO
[2018-04-02 14:35] LABS: BASO % 0.4 %; BASO ABS # 0.04 K/uL (0-0.2); EOS % 4.4 %; EOS ABS # 0.48 K/uL (0-0.5); HEMATOCRIT 37.5 % (37-47); HEMOGLOBIN 12.5 g/dL (12.0-16.0); IG# 0.03 K/uL (0.00-0.02); LYMPH % 25.2 %; LYMPH ABS # 2.75 K/uL (1.2-3.4); MEAN CELL VOLUME 80.8 fL (80-100); MEAN CORPUSCULAR HEMOGLOBIN 26.9 pg (25-34); MEAN CORPUSCULAR HGB CONC 33.3 g/dl (32-36); MEAN PLATELET VOLUME 8.7 fL (7.4-10.4); MONO % 7.5 %; MONO ABS # 0.82 K/uL (0.11-0.59); NEUT % 62.2 %; NEUT ABS # 6.78 K/uL (1.4-6.5); PLATELET COUNT 511 K/uL (130-400); RED CELL DISTRIBUTION WIDTH CV 13.8 % (11.5-14.5)
[2018-04-02 14:49] LABS: ALBUMIN 3.3 gm/dl (3.4-5.0); ALKALINE PHOSPHATASE 152 U/L (45-117); ALT/SGPT 18 U/L (12-78); AST/SGOT 16 U/L (15-37); BLOOD UREA NITROGEN 13 mg/dl (7-18); CALCIUM 9.7 mg/dl (8.5-10.1); CARBON DIOXIDE 25 mmol/L (21-32); CREATININE 0.86 mg/dl (0.60-1.20); GLUCOSE 99 mg/dl (70-99); POTASSIUM 3.5 mmol/L (3.5-5.1); SODIUM 137 mmol/L (136-145); TOTAL PROTEIN 7.2 gm/dl (6.4-8.2)
== END | disposition home or self-care (01) ==
LOC: C.LABSPEC 13:53
PROVIDERS: ATTEND Internal Medicine Infectious Disease
DX: Z01.89 Encounter for other specified special examinations (principal)

== ENCOUNTER → 2018-04-09 | Outpatient (CLI) | payer BC ==
[~2018-04-09] MED LIST changes: -ASPI81TA28 PO; +RIFA300C34 PO
[2018-04-09 14:25] LABS: BASO % 0.5 %; BASO ABS # 0.03 K/uL (0-0.2); EOS % 4.7 %; EOS ABS # 0.29 K/uL (0-0.5); HEMATOCRIT 33.8 % (37-47); HEMOGLOBIN 11.1 g/dL (12.0-16.0); IG# 0.02 K/uL (0.00-0.02); LYMPH % 35.2 %; LYMPH ABS # 2.19 K/uL (1.2-3.4); MEAN CELL VOLUME 81.3 fL (80-100); MEAN CORPUSCULAR HEMOGLOBIN 26.7 pg (25-34); MEAN CORPUSCULAR HGB CONC 32.8 g/dl (32-36); MEAN PLATELET VOLUME 8.4 fL (7.4-10.4); MONO % 11.4 %; MONO ABS # 0.71 K/uL (0.11-0.59); NEUT % 47.9 %; NEUT ABS # 2.98 K/uL (1.4-6.5); PLATELET COUNT 477 K/uL (130-400); RED CELL DISTRIBUTION WIDTH CV 13.9 % (11.5-14.5); RED CELL DISTRIBUTION WIDTH SD 41.7 fL (36.4-46.3); WHITE BLOOD COUNT 6.22 K/uL (4.8-10.8)
[2018-04-09 14:36] LABS: ALBUMIN 3.2 gm/dl (3.4-5.0); ALKALINE PHOSPHATASE 130 U/L (45-117); ALT/SGPT 16 U/L (12-78); AST/SGOT 11 U/L (15-37); BLOOD UREA NITROGEN 17 mg/dl (7-18); CALCIUM 9.5 mg/dl (8.5-10.1); CARBON DIOXIDE 27 mmol/L (21-32); CREATININE 0.83 mg/dl (0.60-1.20); GLUCOSE 122 mg/dl (70-99); POTASSIUM 4.2 mmol/L (3.5-5.1); SODIUM 136 mmol/L (136-145)
--- NOTE | 2018-04-18 17:58 | CODING QUERY NO DIAGNOSIS ---
Valid Physician Order Needed A valid physician order must be submitted in order to properly bill for the service(s) provided, including date of service(s), valid diagnosis, and physician signature. If these tests are done on a recurring basis the original physican order must be submitted in order to code and bill for the service(s) provided. Please fax us the original, signed physician order so that we may expedite billing to [phone] DOS 04/09/18 * CMP, CPK, CBC, ESR ORDERED BY DR. JACKSON Thank you Rossy [facility] Information Management
== END | disposition home or self-care (01) ==
LOC: C.LABSPEC 14:01
PROVIDERS: ATTEND Internal Medicine Infectious Disease
DX: Z01.89 Encounter for other specified special examinations (principal)

== ENCOUNTER → 2018-04-16 | Outpatient (CLI) | payer BC ==
[~2018-04-16] MED LIST changes: -RIFA300C34 PO; -VENL150C2 PO; +VENL150C71 PO; -[UNRECOGNIZED DRUG - CODE]
[2018-04-16 14:35] LABS: BASO % 0.4 %; BASO ABS # 0.03 K/uL (0-0.2); EOS ABS # 0.28 K/uL (0-0.5); HEMATOCRIT 34.6 % (37-47); HEMOGLOBIN 11.7 g/dL (12.0-16.0); IG# 0.04 K/uL (0.00-0.02); LYMPH % 38.1 %; LYMPH ABS # 2.68 K/uL (1.2-3.4); MEAN CELL VOLUME 80.5 fL (80-100); MEAN CORPUSCULAR HEMOGLOBIN 27.2 pg (25-34); MEAN CORPUSCULAR HGB CONC 33.8 g/dl (32-36); MEAN PLATELET VOLUME 8.6 fL (7.4-10.4); MONO % 11.5 %; MONO ABS # 0.81 K/uL (0.11-0.59); NEUT % 45.4 %; PLATELET COUNT 475 K/uL (130-400); RED CELL DISTRIBUTION WIDTH CV 14.1 % (11.5-14.5); RED CELL DISTRIBUTION WIDTH SD 40.7 fL (36.4-46.3); WHITE BLOOD COUNT 7.04 K/uL (4.8-10.8)
[2018-04-16 14:49] LABS: ALBUMIN 3.3 gm/dl (3.4-5.0); ALKALINE PHOSPHATASE 175 U/L (45-117); ALT/SGPT 24 U/L (12-78); AST/SGOT 13 U/L (15-37); BLOOD UREA NITROGEN 20 mg/dl (7-18); CALCIUM 9.6 mg/dl (8.5-10.1); CARBON DIOXIDE 27 mmol/L (21-32); CREATININE 1.09 mg/dl (0.60-1.20); GLUCOSE 255 mg/dl (70-99); POTASSIUM 3.9 mmol/L (3.5-5.1); SODIUM 133 mmol/L (136-145); TOTAL PROTEIN 7.2 gm/dl (6.4-8.2)
== END | disposition home or self-care (01) ==
LOC: C.LABSPEC 13:58
PROVIDERS: ATTEND Internal Medicine Infectious Disease
DX: M86.9 Osteomyelitis, unspecified (principal)

== ENCOUNTER → 2018-04-23 | Outpatient (CLI) | payer BC ==
[~2018-04-23] MED LIST changes: +VENL150C2 PO; -VENL150C71 PO; +[UNRECOGNIZED DRUG - CODE]
[2018-04-23 18:14] LABS: BASO % 0.3 %; BASO ABS # 0.03 K/uL (0-0.2); EOS % 3.8 %; EOS ABS # 0.37 K/uL (0-0.5); HEMATOCRIT 37.7 % (37-47); HEMOGLOBIN 12.3 g/dL (12.0-16.0); IG# 0.04 K/uL (0.00-0.02); LYMPH % 31.4 %; LYMPH ABS # 3.06 K/uL (1.2-3.4); MEAN CORPUSCULAR HEMOGLOBIN 27.1 pg (25-34); MEAN CORPUSCULAR HGB CONC 32.6 g/dl (32-36); MEAN PLATELET VOLUME 8.6 fL (7.4-10.4); MONO % 7.7 %; MONO ABS # 0.75 K/uL (0.11-0.59); NEUT % 56.4 %; PLATELET COUNT 423 K/uL (130-400); RED CELL DISTRIBUTION WIDTH CV 14.5 % (11.5-14.5); RED CELL DISTRIBUTION WIDTH SD 43.5 fL (36.4-46.3); WHITE BLOOD COUNT 9.75 K/uL (4.8-10.8)
[2018-04-23 18:51] LABS: ALBUMIN 2.4 gm/dl (3.4-5.0); ALKALINE PHOSPHATASE 126 U/L (45-117); ALT/SGPT 17 U/L (12-78); AST/SGOT 12 U/L (15-37); BLOOD UREA NITROGEN 12 mg/dl (7-18); CALCIUM 7.3 mg/dl (8.5-10.1); CARBON DIOXIDE 21 mmol/L (21-32); CREATININE 0.73 mg/dl (0.60-1.20); GLUCOSE 134 mg/dl (70-99); POTASSIUM 2.9 mmol/L (3.5-5.1); SODIUM 138 mmol/L (136-145); TOTAL PROTEIN 5.4 gm/dl (6.4-8.2)
== END | disposition home or self-care (01) ==
LOC: C.LABSPEC 17:20
PROVIDERS: ATTEND Internal Medicine Infectious Disease
DX: A41.9 Sepsis, unspecified organism (principal)

== ENCOUNTER → 2018-04-30 | Day surgery (SDC) | payer BC ==
[~2018-04-30] VITALS: Ht 165.1 cm; Wt 126.0 kg
[~2018-04-30] MED LIST changes: +ALTEPLASE, RECOMBINANT 1 MG/ML 2 ML VIAL IV SCH; +RIFA300C34 PO; +WATER, STERILE FOR INJ 10 ML VIAL IV SCH
[2018-04-30 12:42] VITALS: BP 151/72; PULSE 88; TEMP 37.3; Ht 165.1 cm; Wt 126.0 kg
== END | disposition home or self-care (01) ==
LOC: C.MTU 12:32
PROVIDERS: ATTEND Internal Medicine Infectious Disease
DX: Z95.828 Presence of other vascular implants and grafts (principal)

== ENCOUNTER → 2018-05-14 | Outpatient (CLI) | payer BC ==
[~2018-05-14] MED LIST changes: -ALTEPLASE, RECOMBINANT 1 MG/ML 2 ML VIAL IV SCH; -WATER, STERILE FOR INJ 10 ML VIAL IV SCH
[2018-05-14 11:28] LABS: BASO % 0.4 %; BASO ABS # 0.04 K/uL (0-0.2); EOS % 4.1 %; EOS ABS # 0.38 K/uL (0-0.5); HEMATOCRIT 36.3 % (37-47); HEMOGLOBIN 12.1 g/dL (12.0-16.0); IG# 0.02 K/uL (0.00-0.02); LYMPH % 25.8 %; LYMPH ABS # 2.37 K/uL (1.2-3.4); MEAN CELL VOLUME 79.8 fL (80-100); MEAN CORPUSCULAR HEMOGLOBIN 26.6 pg (25-34); MEAN CORPUSCULAR HGB CONC 33.3 g/dl (32-36); MEAN PLATELET VOLUME 8.8 fL (7.4-10.4); MONO % 6.7 %; MONO ABS # 0.61 K/uL (0.11-0.59); NEUT % 62.8 %; NEUT ABS # 5.75 K/uL (1.4-6.5); PLATELET COUNT 395 K/uL (130-400); RED CELL DISTRIBUTION WIDTH CV 14.2 % (11.5-14.5); RED CELL DISTRIBUTION WIDTH SD 40.7 fL (36.4-46.3); WHITE BLOOD COUNT 9.17 K/uL (4.8-10.8)
[2018-05-14 11:39] LABS: ALBUMIN 2.9 gm/dl (3.4-5.0); BLOOD UREA NITROGEN 15 mg/dl (7-18); CALCIUM 8.5 mg/dl (8.5-10.1); CARBON DIOXIDE 23 mmol/L (21-32); CREATININE 0.95 mg/dl (0.60-1.20); GLUCOSE 188 mg/dl (70-99); POTASSIUM 3.7 mmol/L (3.5-5.1); SODIUM 136 mmol/L (136-145); TOTAL PROTEIN 6.6 gm/dl (6.4-8.2)
[2018-05-14 11:40] LABS: ALKALINE PHOSPHATASE 182 U/L (45-117); ALT/SGPT 21 U/L (12-78); AST/SGOT 13 U/L (15-37)
== END | disposition home or self-care (01) ==
LOC: C.LABSPEC 11:08
PROVIDERS: ATTEND Internal Medicine Infectious Disease
DX: M86.9 Osteomyelitis, unspecified (principal)

== ENCOUNTER 2019-03-26 08:57 | Inpatient (IN) ==
--- OUTSIDE RECORDS SUMMARY | 2019-03-26 09:00 | External Medical Summary | Continuity of Care Document ---
:1965 Author Name Karlie Donald, Provider Address Unavailable Unavailable , Care Team Providers Name Role Phone Romina Swartz DO Unavailable [email or web address] Linda Donald, Junior Sánchez Unavailable [email or web address] Kaitlyn OAKES Unavailable Unavailable Unavailable Unavailable Unavailable Problems Type 2 diabetes mellitus with Charcot's joint of right foot (250.60) (E11.610) Leiomyoma (215.9) (D21.9) Osteomyelitis of right foot (730.27) (M86.9) Open wound of right foot (892.0) (S91.301A) Endometrial polyp (621.0) (N84.0) 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 Refills: 0 Lantus SoloStar SOLN; INJECT 60 UNIT TWICE DAILY Refills: 0 Effexor XR 150 MG Oral Capsule Extended Release 24 Hour; KAVEH E 300 MG DAILY Refills: 0 Coreg 12.5 MG Oral Tablet; TAKE 1 TABLET TWICE DAILY. Refills: 0 Ondansetron HCl - 4 MG Oral Tablet; TAKE 1 TABLET BY MOUTH EVERY 6 HOURS NEEDED FOR NAUSEA. DO Romina Swartz Start: 16-Jul-2018 Quantity: 24 Refills: 4 Procedures Procedures not documented Immunizations Immunizations not documented Social History - Smoking Status Never smoker Plan of Treatment Planned Observations Planned Goals not documented Results No Known Results Results not documented Encounters Appointment; Bobby Keene M.D. 18-Apr-2018 8:00 Encounter Diagnosis: Problem not documented Appointment; Bobby Keene M.D. 26-Mar-2018 7:30 Encounter Diagnosis: Problem not documented Appointment; Bobby Keene M.D. 15-Mar-2018 14:00 Encounter Diagnosis: Problem not documented Appointment; OBGYN SC[facility], Ultrasound 06-Feb-2018 9:30 Encounter Diagnosis: Problem not documented Appointment; Bobby Keene M.D. 31-Jan-2018 15:45 Encounter Diagnosis: Problem not documented
--- NOTE | 2019-03-26 09:21 | Emergency Department Note ---
ED Visit Note I assisted Dr. Torres with the care of this patient. Please refer to his note for additional details. . Resident Activity Tracking Resident Involvement: Resident Care Provided Care Provided: Adult ED
[2019-03-26] MEDS ORDERED: PIPERACILL/TAZOBAC CONSULT ACTIVE PRN ×2 (09:30→14:28)
[2019-03-26] MEDS ORDERED: VANCOMYCIN HCL 1,000 MG/270 ML BAG IV STA (09:30)
[2019-03-26] MEDS ORDERED: VANCOMYCIN CONSULT ACTIVE PRN (09:30)
[2019-03-26] MEDS ORDERED: LACTATED RINGER'S 1,000 ML IV SCH (09:30)
[2019-03-26] MEDS ORDERED: PIPERACILLIN/TAZOBACTAM 4.5 GM/120 ML BAG IV ONE (09:30)
[2019-03-26] MEDS ORDERED: DAPTOmycin 475 MG in SYRINGE 0 ML IV ONE (09:34)
[2019-03-26 10:20] LABS: Appearance Urine Turbid (Clear); Bacteria Urine Automated Negative (Negative); Bilirubin Urine Negative (Negative); Blood Urine 2+ (Negative); Color Urine Dark Yellow; Epithelial Cell Urine Auto >30 /lpf (0-5); Glucose Urine UA Trace (Negative); Ketones Urine 1+ (Negative); Leukocyte Esterase Urine Negative (Negative); Nitrite Urine Negative (Negative); Protein Urine 4+ (Negative); Specific Gravity Urine 1.027 (1.000-1.030); Urobilinogen Urine Negative (Negative)
--- NOTE | 2019-03-26 10:23 | XRay Report ---
XR chest 1V portable CLINICAL HISTORY: 53 years-old Female presenting with Sepsis. TECHNIQUE: Portable upright AP view of the chest was obtained. COMPARISON: 02/09/2018. FINDINGS: Cardiomediastinal silhouette normal. Vague added density in the left lower lung. No large effusion or pneumothorax. Degenerative changes of the thoracic spine. Upper abdomen normal. IMPRESSION: 1. Vague added density in the left lower lung raises concern for a focal infiltrate. Pneumonia not e xcluded. Consider dedicated PA and lateral views for better visualization. Electronically signed by: Salas Read M.D. 03/26/2019 10:22 AM
[2019-03-26 10:25] LABS: Basophils # (auto) 0.03 K/uL (0-0.2); Basophils % (auto) 0.1 %; Eosinophils # (auto) 0.11 K/uL (0-0.5); Eosinophils % (auto) 0.5 %; Hematocrit (blood only) 36.5 % (37-47); Immature Granulocytes # (auto) 0.13 K/uL (0.00-0.02); Immature Granulocytes % (auto) 0.6 %; Lymphocytes # (auto) 2.35 K/uL (1.2-3.4); Mean Corpuscular Hgb Conc 32.9 g/dL (32-36); Mean Corpuscular Volume 81.1 fL (80-100); Mean Platelet Volume 8.5 fL (7.4-10.4); Monocytes # (auto) 2.62 K/uL (0.11-0.59); Monocytes % (auto) 11.2 %; Neutrophils # (auto) 18.21 K/uL (1.4-6.5); Neutrophils % (auto) 77.6 %; Platelet Count 371 K/uL (130-400); RDW Coefficient of Variation 15.5 % (11.5-14.5); RDW Standard Deviation 46.1 fL (36.4-46.3); White Blood Count 23.45 K/uL (4.8-10.8)
[2019-03-26 10:38] LABS: INR 1.1 (0.9-1.1); Partial Thromboplastin Time 28.4 Seconds (21.0-31.0); Prothrombin Time 11.5 Seconds (9.0-12.0)
[2019-03-26 10:46] LABS: Alanine Aminotransferase 12 U/L (12-78); Albumin Level 2.9 gm/dl (3.4-5.0); Aspartate Aminotransferase 9 U/L (15-37); BUN Creatinine Ratio 10.7 (10-20); Blood Urea Nitrogen 18 mg/dl (7-18); Calcium 9.4 mg/dl (8.5-10.1); Carbon Dioxide 26 mmol/L (21-32); Chloride 98 mmol/L (98-107); Creatinine Clr Calc Pharmacy 48.5 ml/min; Est GFR (African American) 39.2; Est GFR (Non-African American) 33.8; Glucose 273 mg/dl (70-99); Magnesium 1.8 mg/dl (1.8-2.4); Potassium 4.5 mmol/L (3.5-5.1); Sodium 132 mmol/L (136-145)
[2019-03-26 10:51] LABS: Albumin Globulin Ratio 0.7 (0.9-2); Alkaline Phosphatase 159 U/L (45-117); Bilirubin,Total 1.1 mg/dl (0.2-1); Creatine Kinase MB < 1.0 ng/ml (0.5-3.6); Globulin 4.3 gm/dl (2.5-4.0); Phosphorus 2.3 mg/dl (2.5-4.9); Total Protein 7.2 gm/dl (6.4-8.2); Troponin I 0.015 ng/ml (0-0.045)
[2019-03-26 10:59] LABS: Amorphous Sediment Urine Present (None Prsent); Renal Epithelial Cells Urine 0-5 /lpf (0-5)
--- NOTE | 2019-03-26 11:09 | CT Scan Report ---
CT abd pelvis wo con CLINICAL HISTORY: 53 years-old Female presenting with abdominal pain, hx of nephrolithiasis, c. diff. TECHNIQUE: Multidetector CT of the abdomen and pelvis was performed without the use of intravenous co ntrast. IV contrast: None. One or more dose lowering techniques were used consistent with the princip les of ALARA (as low as reasonably achievable), including automatic exposure control, mA or kV adjust ment to individual patient size, and/or use of iterative reconstruction. COMPARISON: None. CT DOSE (mGy.cm): The estimated cumulative dose is 1098.14 mGycm. FINDINGS: Technology Specialist topogram: Cholecystectomy clips. Lung bases: Normal heart size. No pericardial or pleural effusion. No focal infiltrate or nodule at t he lung bases. Liver: Normal morphology. Normal density. Biliary: No gross biliary ductal dilatation allowing for noncontrast technique. Gallbladder surgicall y absent. Pancreas: Moderate parenchymal atrophy. Spleen: Normal noncontrast appearance. Adrenal glands: Macroscopic fat-containing 3.8 cm nodule in the right adrenal gland characteristic of a myelolipoma. Normal noncontrast appearance of the left adrenal gland. Kidneys and ureters: Mild left pelvocaliectasis with dilatation of the left ureter to the level of an obstructing 8 mm calculus in the distal left ureter. Left periureteral fat infiltration. Asymmetric left perinephric fat infiltration and mild enlargement of the left kidney. Nonobstructing calculus at the lower pole the left kidney measuring 6 mm. No right renal calculi. Bladder: Incompletely evaluated secondary to underdistention. No bladder calculi are grossly apparent . Pelvic organs: Normal noncontrast appearance. Bowel: Normal noncontrast appearance. No bowel obstruction. Peritoneal cavity: No free fluid or intraperitoneal gas. Trace retroperitoneal fluid on the left Lymph nodes: No gross lymphadenopathy allowing for noncontrast technique. Vasculature: Atherosclerosis of the normal caliber abdominal aorta. Abdominal wall: Fat-containing ventral hernia with a relatively wide neck in the. Local region. Musculoskeletal: Degenerative changes of the spine. Posttraumatic deformities of the inferior pubic r ami. IMPRESSION: 1. Obstructing 8 mm calculus in the distal left ureter with resultant mild left hydroureteronephrosi s. Additional nonobstructing 6 mm calculus at the lower pole the left kidney. 2. Additional findings as above. Electronically signed by: Salas Read M.D. 03/26/2019 11:08 AM
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
[2019-03-26] MEDS ORDERED: LIDOCAINE HCL 2% 2 ML VIAL/AMP(20MG/ML) INFIL ONE (11:48)
[2019-03-26] MEDS ORDERED: PROPOFOL IV EMULSION 10 MG/ML 20 ML VIAL IV ONE (11:48)
[2019-03-26] MEDS ORDERED: DEXAMETHASONE SOD INJ 4 MG/ML VIAL ONE (11:48)
[2019-03-26] MEDS ORDERED: ONDANSETRON INJ 2 MG/ML 2 ML VIAL ONE (11:48)
[2019-03-26] MEDS ORDERED: fentaNYL citrate 100 MCG/2 ML VIAL ONE (11:48)
[2019-03-26] MEDS ORDERED: MIDAZOLAM HCL 1 MG/ML 2ML VIAL ONE (11:48)
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
[2019-03-26] MEDS ORDERED: PROMETHAZINE HCL 12.5 MG in SODIUM CHLORIDE 0.9% 50 ML IV PRN (12:06)
[2019-03-26] MEDS ORDERED: ATROPINE SULFATE 0.1 MG/ML 10ML SYR IV PRN (12:06)
[2019-03-26] MEDS ORDERED: HYDROmorphone INJ 1 MG/ML SYRINGE IV PRN (12:06)
[2019-03-26] MEDS ORDERED: ONDANSETRON INJ 2 MG/ML 2 ML VIAL IV PRN (12:06)
[2019-03-26] MEDS ORDERED: ePHEDrine sulfate 50 MG/ML AMP IV PRN (12:06)
[2019-03-26] MEDS ORDERED: fentaNYL citrate 100 MCG/2 ML VIAL IV PRN (12:06)
[2019-03-26] MEDS ORDERED: PHENYLEPHRINE 100MCG/ML 5ML SYR IV PRN (12:06)
[2019-03-26] MEDS ORDERED: SCOPOLAMINE 1.5 MG TDSY ONE (12:09)
[2019-03-26] MEDS ORDERED: SCOPOLAMINE 1.5 MG TDSY TD ONE (12:12)
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
[2019-03-26] MEDS ORDERED: IOTHALAMATE MEGLUMINE II 17.2% 250 ML VIAL ONE (12:41)
[2019-03-26] MEDS ORDERED: SUCCINYLCHOLINE CHLORIDE 20 MG/ML 10 ML VIAL ONE (12:45)
[2019-03-26] MEDS ORDERED: LARYING-O-JET KIT (LTA) ONE (12:49)
--- NOTE | 2019-03-26 13:05 | Operative Report ---
Post Operative Report Pre & Post Diagnosis Operation Date: 03/26/19 12:00 Pre-Op Diagnosis: Left ureteral stone Post-Op Diagnosis: Left ureteral stone Procedure Operation Date: 03/26/19 12:00 Actual Procedures p Cystoscopy, Left Retrograde Pyelogram, Left Stent Placement(Left) - Roberto Regalado MD Surgeon Raheem Regalado MD [employer] none Estimated Blood Loss 0 Findings Consistent with Post-Op Diagnosis Specimens left kidney urine for culture Description of Procedure The patient was identified in the preopertive holding area, appropriate informed consents were reviewed and completed and the patient was transferred to the operative suite. Upon arrival, appropriate antibiotics and anesthesia were administered and the patient was placed in dorsal lithotomy position and prepped and draped in sterile fashion. To begin the case a 22 Iranian cystoscope was passed per urethra, inspection of the bladder revealed no gross abnormalities, ureteral orifices were in orthotopic position. Following my inspection, I turned my attention of the left UO and cannulated with a 5 Iranian open-ended catheter and sensor wire. I felt resistance several centimeters above the UO consistent with the stone seen on imaging. I was able to bypass this without difficulty and advanced the wire to the kidney. Immediately after bypassing the stone we had an outpouring of purulent urine from the UO. After draining the kidney, I advanced a 5 Iranian open-ended catheter over the wire to the level of the UPJ. I withdrew several cc of cloudy urine from the left kidney and passed it off the table for culture. I then measured the length of the ureter before positioning a 6 Iranian by 26 cm double-J ureteral stent with a good curl seen in the kidney as well as the bladder. I decompressed the bladder and concluded the case. The patient was extubated and taken to the PACU in stable condition. I attest to the content of the Intraoperative Record and any orders documented therein. Any exceptions are noted below.
--- NOTE | 2019-03-26 13:27 | Anesthesiology Progress Note ---
Date of Service March 26, 2019 Anesthesia Post Procedure Vital Signs Vital Signs: Temp Pulse Pulse Resp BP BP Pulse Ox 03/26/19 11:57 39.5 C H 96 H 20 151/77 H 99 03/26/19 11:30 95 H 23 98 03/26/19 11:20 97 H 23 93 03/26/19 11:10 92 H 9 L 96 03/26/19 11:00 94 H 34 H 96 03/26/19 10:59 94 H 20 176/72 H 97 03/26/19 10:58 93 03/26/19 10:40 97 H 25 H 03/26/19 10:30 98 H 26 H 03/26/19 10:20 99 H 23 03/26/19 10:10 103 H 18 03/26/19 10:00 102 H 25 H 97 03/26/19 09:50 103 H 12 98 03/26/19 09:42 102 H 15 97 03/26/19 09:35 98 03/26/19 09:31 102 H 13 179/69 H 97 03/26/19 09:03 39.6 C H 100 H 112 H 16 190/72 H 190/72 H 94 Pain Intensity Generalized: Pain Intensity: 6 Transfer of Care Handoff Completed per policy Notes Mental Status: alert / awake / arousable Patient Amnestic to Procedure: Yes Nausea / Vomiting: adequately controlled Pain: adequately controlled Airway Patency, RR, SpO2: stable & adequate BP & HR: stable & adequate Hydration State: stable & adequate Anesthetic Complications: no major complications apparent
--- NOTE | 2019-03-26 14:27 | Fluoroscopy Report ---
INTRAOPERATIVE RADIOGRAPHS CLINICAL HISTORY: Left-sided retrograde ureterogram and ureteral stent placement. Fluoroscopy time: 11 seconds. FINDINGS: 2 spot fluoroscopic views of the left abdomen from a retrograde ureterogram and ureteral st ent placement procedure are correlated with abdominal CT dated 03/26/2019. The initial image shows a ca theter in the left proximal ureter. Contrast shows evidence of hydronephrosis. The second image shows the proximal end of a left ureteral stent being deployed and in appropriate position. IMPRESSION: Intraoperative images from a left ureteral stent placement procedure as above. Electronically signed by: Neri Gould M.D. 03/26/2019 2:25 PM
[2019-03-26] MEDS ORDERED: ONDANSETRON 4 MG TAB PO PRN (14:28)
[2019-03-26] MEDS ORDERED: NITROGLYCERIN SL 0.4 MG/TAB TAB SL PRN (14:28)
[2019-03-26] MEDS ORDERED: MoRPHine SULFATE 2 MG/ML CARP IV PRN (14:28)
[2019-03-26] MEDS ORDERED: POLYETHYLENE (MIRALAX) 17 GM PACK PO PRN (14:28)
[2019-03-26] MEDS ORDERED: PHARMACY GLYCEMIC MGMT CONSULT PRN (15:00)
[2019-03-26] MEDS ORDERED: SODIUM CHLORIDE 0.9% 1000ML 1,000 ML IV SCH (15:00)
--- NOTE | 2019-03-26 15:05 | Emergency Department Note ---
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 (70-99) mg/dl POC Glucose 288 H 281 H (70-99) Lactate (0.4-2.0) mmol/L Calcium (8.5-10.1) mg/dl Phosphorus (2.5-4.9) mg/dl Magnesium (1.8-2.4) mg/dl Total Bilirubin (0.2-1) mg/dl AST (15-37) U/L ALT (12-78) U/L Alkaline Phosphatase (45-117) U/L CK-MB (CK-2) (0.5-3.6) ng/ml Troponin I (0-0.045) ng/ml Total Protein (6.4-8.2) gm/dl Albumin (3.4-5.0) gm/dl Globulin (2.5-4.0) gm/dl Albumin/Globulin Ratio (0.9-2) Procalcitonin (0-0.5) ng/ml Urine Color Urine Appearance (Clear) Urine pH (4.5-7.5) Ur Specific [place] (1.000-1.030) Urine Protein (Negative) Urine Glucose (UA) (Negative) Urine Ketones (Negative) Urine Blood (Negative) Urine Nitrite (Negative) Urine Bilirubin (Negative) Urine Urobilinogen (Negative) Ur Leukocyte Esterase (Negative) Urine WBC (Auto) (0-5) /hpf Urine RBC (Auto) (0-4) /hpf U Hyaline Cast (Auto) (0-5) /lpf U Epithel Cells (Auto) (0-5) /lpf Urine Bacteria (Auto) (Negative) Ur Renal Epithelial Cell (0-5) /lpf Amorphous Sediment (None Prsent) Granular Casts (0) /lpf Imaging Data Radiologist's Impression: Radiology results as stated below per my review and the radiologist's interpretation: XR chest 1V portable CLINICAL HISTORY: 53 years-old Female presenting with Sepsis. TECHNIQUE: Portable upright AP view of the chest was obtained. COMPARISON: 02/09/2018. FINDINGS: Cardiomediastinal silhouette normal. Vague added density in the left lower lung. No large effusion or pneumothorax. Degenerative changes of the thoracic spine. Upper abdomen normal. IMPRESSION: 1. Vague added density in the left lower lung raises concern for a focal infiltrate. Pneumonia not excluded. Consider dedicated PA and lateral views for better visualization. Electronically signed by: Salas Read M.D. 03/26/2019 10:[address] abd pelvis wo con CLINICAL HISTORY: 53 years-old Female presenting with abdominal pain, hx of nephrolithiasis, c. diff. TECHNIQUE: Multidetector CT of the abdomen and pelvis was performed without the use of intravenous contrast. IV contrast: None. One or more dose lowering techniques were used consistent with the principles of ALARA (as low as reasonably achievable), including automatic exposure control, mA or kV adjustment to individual patient size, and/or use of iterative reconstruction. COMPARISON: None. CT DOSE (mGy.cm): The estimated cumulative dose is 1098.14 mGycm. FINDINGS: Government Auditor topogram: Cholecystectomy clips. Lung bases: Normal heart size. No pericardial or pleural effusion. No focal infiltrate or nodule at the lung bases. Liver: Normal morphology. Normal density. Biliary: No gross biliary ductal dilatation allowing for noncontrast technique. Gallbladder surgically absent. Pancreas: Moderate parenchymal atrophy. Spleen: Normal noncontrast appearance. Adrenal glands: Macroscopic fat-containing 3.8 cm nodule in the right adrenal gland characteristic of a myelolipoma. Normal noncontrast appearance of the left adrenal gland. Kidneys and ureters: Mild left pelvocaliectasis with dilatation of the left ureter to the level of an obstructing 8 mm calculus in the distal left ureter. Left periureteral fat infiltration. Asymmetric left perinephric fat infiltration and mild enlargement of the left kidney. Nonobstructing calculus at the lower pole the left kidney measuring 6 mm. No right renal calculi. Bladder: Incompletely evaluated secondary to underdistention. No bladder calculi are grossly apparent. Pelvic organs: Normal noncontrast appearance. Bowel: Normal noncontrast appearance. No bowel obstruction. Peritoneal cavity: No free fluid or intraperitoneal gas. Trace retroperitoneal fluid on the left Lymph nodes: No gross lymphadenopathy allowing for noncontrast technique. Vasculature: Atherosclerosis of the normal caliber abdominal aorta. Abdominal wall: Fat-containing ventral hernia with a relatively wide neck in the. Local region. Musculoskeletal: Degenerative changes of the spine. Posttraumatic deformities of the inferior pubic rami. IMPRESSION: 1. Obstructing 8 mm calculus in the distal left ureter with resultant mild left hydroureteronephrosis. Additional nonobstructing 6 mm calculus at the lower pole the left kidney. 2. Additional findings as above. Electronically signed by: Salas Read M.D. 03/26/2019 11:08 AM ECG Data Attestation: I personally reviewed and interpreted this ECG as follows: Indication: chest pain Rate (beats per minute): 99 Rhythm: normal sinus Findings: + T-wave inversion (Lateral) Comparison ECG Date: from (13-FEB-2018) Change: no significant change Blood Pressure Blood Pressure Findings: Elevated blood pressure Blood Pressure Disposition: further management by hospitalist [facility] Narrative This is a 53-year-old female who presents emergency department complaining of fevers. Patient has a known kidney stone therefore was sent for CAT scan the abdomen pelvis. She was found to have grossly elevated white blood cell count as well as elevation in her sugar. She was given a normal saline bolus and started on broad-spectrum antibiotics including Z Zosyn and daptomycin. I am concerned that the patient has an infected stone therefore I did consult urology who took the patient to the operating room. The case was also discussed with the hospitalist service who agreed to admit the patient. Impression & Plan Kidney stone, Fever, Diabetes Critical Care Time I have personally spent greater than 30 minutes of critical care time in the direct management of this patient. This includes bedside care, interpretation of diagnostic studies, and testing, discussion with consultants, patient, and family members, and other required patient management activities. This 30 minutes is in excess of all separately billable procedures. Discharge Plan Visit Data *Final* Discharge Date/Time: 03/26/19 11:50 Chief Complaint: Flank Pain Other Complaint: Nausea ED Provider: Adalid Torres ED Midlevel Provider: Carito Osei Discharge Problem: Kidney stone, Fever, Diabetes Patient Disposition: Still a Patient Discharge Instructions Interventions: ED Discharge Assessment Last Done: 03/26/19 11:50 Discharge Problem: Fever Qualifiers: Fever type: unspecified Qualified Code(s): R50.9 - Fever, unspecified Diabetes Qualifiers: Diabetes mellitus type: other specified (including GREG) Diabetes mellitus termite control service representative insulin use: unspecified termite control service representative insulin use status Diabetes mellitus complication status: with other specified complication Qualified Code(s): E13.69 - Other specified diabetes mellitus with other specified complication The scribe's documentation has been prepared under my direction and personally reviewed by me in its entirety. I confirm that the note above accurately reflects all work, treatment, procedures, and medical decision making performed by me.
[2019-03-26] MEDS ORDERED: INSULIN GLARGINE SOLOSTAR 100 UNITS/ML 3 ML PEN SC ONE ×2 (15:30)
[2019-03-26] MEDS: ACETAMINOPHEN 325 MG TAB PO PRN ×3 (15:31→23:36)
[2019-03-26] MEDS: PIPERACILLIN/TAZOBACTAM 4.5 GM in DEXTROSE 5% 100 ML IV SCH ×2 (15:31→23:30)
[2019-03-26] MEDS: CHECK SCOPOLAMINE PATCH PLACEMENT SCH ×2 (15:33→23:31)
[2019-03-26] MEDS: CARVEDILOL 25 MG TAB PO SCH (15:33)
--- NOTE | 2019-03-26 15:35 | Pharmacy Report ---
Pharmacy Glycemic Short Note 2 - Date of Service March 26, 2019 - Glycemic Short BSG Results (Last 24 hours): 03/26/19 03/26/19 03/26/19 10:03 11:57 13:11 Glucose 273 H POC Glucose 288 H 281 H OUTPATIENT ANTIDIABETIC REGIMEN: * Lantus 40 units AM + 35 units PM * Humalog with meals: 1 unit per ~5 grams CHOs * A1c = ? ASSESSMENT: * Type 2 diabetic admitted for sepsis, pyelonephritis, KHANG and nephrolithiasis * Pt is s/p urgent lithotripsy and stent placement * Pt is known to glycemic control service from prior hospitalization. She has demonstrated she is reliant on high doses of basal insulin in the past. * She has not received her basal insulin today. Last dose given last evening (30 units Lantus). Will give 1st dose STAT and dose again this PM per scale. * Will initiate insulin doses based upon an anticipated daily insulin requirement of 120+ units * Of note, Anesthesia record reviewed and it does not appear that dexamethasone was given today PLAN FOR INPATIENT GLYCEMIC CONTROL: * Hold outpatient oral diabetes medications * Basal insulin * Lantus 40 units SQ x 1 STAT, then begin BID per the following scale: * 0 units if less than 100 * 30 units if 100-140 * 40 units if 141-180 * 45 units if greater than 180 * Bolus insulin * NovoLog per scale Q 4 hrs * Goal Range: Low 110 mg/dL - High 140 mg/dL * Correction Factor: 12 mg/dL/unit * Nutritional / Prandial insulin per carb ratio of 1 unit per 4 grams CHO consumed PLAN FOR DISCHARGE: * to be determined
[2019-03-26] MEDS ORDERED: SODIUM CHLORIDE 0.9% 1000ML 1,000 ML IV ONE (17:45)
[2019-03-26] MEDS: INSULIN ASPART 100 UNITS/ML 3 ML PEN SC SCH ×2 (18:10→21:26)
[2019-03-26] MEDS ORDERED: INSULIN GLARGINE SOLOSTAR 100 UNITS/ML 3 ML PEN SC SCH (21:00)
[2019-03-26] MEDS ORDERED: INSULIN HUMAN REGULAR PER UNIT 8 UNITS in SYRINGE 7.92 ML IV STA (21:02)
[2019-03-26] MEDS: VENLAFAXINE HCL XR 150 MG CAPXR PO SCH (21:26)
[2019-03-26] MEDS ORDERED: INSULIN GLARGINE SOLOSTAR 100 UNITS/ML 3 ML PEN SC STA (22:50)
[2019-03-27] MEDS: ONDANSETRON INJ 2 MG/ML 2 ML VIAL IV PRN ×3 (01:38→19:23)
[2019-03-27] MEDS ORDERED: INSULIN ASPART 100 UNITS/ML 3 ML PEN SC SCH ×2 (02:00)
[2019-03-27] MEDS: PIPERACILLIN/TAZOBACTAM 4.5 GM in DEXTROSE 5% 100 ML IV SCH ×3 (07:59→23:37)
[2019-03-27] MEDS: CHECK SCOPOLAMINE PATCH PLACEMENT SCH ×3 (08:06→23:37)
--- NOTE | 2019-03-27 08:15 | Anesthesiology Progress Note ---
Date of Service March 27, 2019 Anesthesia Post Procedure Vital Signs Vital Signs: Temp Pulse Pulse Pulse Resp BP BP 03/27/19 07:25 39.1 C H 93 H 18 187/81 H 03/27/19 06:17 37.2 C 03/27/19 04:00 37.4 C 75 20 126/76 03/27/19 01:41 37.2 C 03/27/19 00:06 80 03/26/19 23:47 38.1 C H 67 20 102/68 03/26/19 19:48 38.1 C H 67 18 03/26/19 17:19 67 03/26/19 17:14 38.3 C H 68 18 88/45 L 03/26/19 16:38 38.7 C H 79 18 03/26/19 15:17 90 03/26/19 15:00 39.3 C H 87 20 03/26/19 14:34 38.6 C H 92 H 18 133/70 03/26/19 13:55 38.2 C H 87 24 03/26/19 13:45 88 24 03/26/19 13:35 91 H 24 03/26/19 13:25 90 24 03/26/19 13:15 89 28 H 03/26/19 13:05 36.3 C L 85 24 03/26/19 11:57 39.5 C H 96 H 20 03/26/19 11:30 95 H 23 03/26/19 11:20 97 H 23 03/26/19 11:10 92 H 9 L 03/26/19 11:00 94 H 34 H 03/26/19 10:59 94 H 20 176/72 H 03/26/19 10:58 03/26/19 10:40 97 H 25 H 03/26/19 10:30 98 H 26 H 03/26/19 10:20 99 H 23 03/26/19 10:10 103 H 18 03/26/19 10:00 102 H 25 H 03/26/19 09:50 103 H 12 03/26/19 09:42 102 H 15 03/26/19 09:35 03/26/19 09:31 102 H 13 179/69 H 03/26/19 09:03 39.6 C H 100 H 112 H 16 190/72 H BP Pulse Ox 03/27/19 07:25 96 03/27/19 06:17 03/27/19 04:00 95 03/27/19 01:41 03/27/19 00:06 03/26/19 23:47 98 03/26/19 19:48 110/55 L 98 03/26/19 17:19 104/62 03/26/19 17:14 03/26/19 16:38 102/58 L 03/26/19 15:17 03/26/19 15:00 139/69 100 03/26/19 14:34 96 03/26/19 13:55 151/61 H 100 03/26/19 13:45 145/62 H 100 03/26/19 13:35 163/71 H 95 03/26/19 13:25 151/66 H 92 03/26/19 13:15 142/64 H 100 03/26/19 13:05 114/52 L 99 03/26/19 11:57 151/77 H 99 03/26/19 11:30 98 03/26/19 11:20 93 03/26/19 11:10 96 03/26/19 11:00 96 03/26/19 10:59 97 03/26/19 10:58 93 03/26/19 10:40 03/26/19 10:30 03/26/19 10:20 03/26/19 10:10 03/26/19 10:00 97 03/26/19 09:50 98 03/26/19 09:42 97 03/26/19 09:35 98 03/26/19 09:31 97 03/26/19 09:03 190/72 H 94 Pain Intensity Pelvic: Pain Intensity: 3 Head: Pain Intensity: 3 Notes Mental Status: alert / awake / arousable Patient Amnestic to Procedure: Yes Nausea / Vomiting: improving with treatment Pain: adequately controlled Airway Patency, RR, SpO2: stable & adequate BP & HR: stable & adequate Hydration State: stable & adequate Anesthetic Complications: no major complications apparent
[2019-03-27 08:44] LABS: Basophils # (auto) 0.02 K/uL (0-0.2); Basophils % (auto) 0.1 %; Eosinophils # (auto) 0.41 K/uL (0-0.5); Eosinophils % (auto) 2.5 %; Hematocrit (blood only) 33.9 % (37-47); Hemoglobin 11.1 g/dL (12.0-16.0); Immature Granulocytes # (auto) 0.06 K/uL (0.00-0.02); Immature Granulocytes % (auto) 0.4 %; Lymphocytes # (auto) 1.46 K/uL (1.2-3.4); Mean Corpuscular Hgb Conc 32.7 g/dL (32-36); Mean Corpuscular Volume 81.7 fL (80-100); Mean Platelet Volume 8.6 fL (7.4-10.4); Neutrophils # (auto) 12.99 K/uL (1.4-6.5); Platelet Count 304 K/uL (130-400); RDW Coefficient of Variation 15.6 % (11.5-14.5); RDW Standard Deviation 46.8 fL (36.4-46.3); Red Blood Count 4.15 M/uL (4.2-5.4); White Blood Count 16.24 K/uL (4.8-10.8)
[2019-03-27 09:10] LABS: BUN Creatinine Ratio 12.5 (10-20); Calcium 9.1 mg/dl (8.5-10.1); Creatinine Clr Calc Pharmacy 45.6 ml/min; Est GFR (African American) 36.3; Est GFR (Non-African American) 31.3; Potassium 3.8 mmol/L (3.5-5.1)
[2019-03-27] MEDS: INSULIN ASPART 100 UNITS/ML 3 ML PEN SC SCH ×4 (09:27→19:23)
[2019-03-27] MEDS: ASPIRIN 81 MG ECTAB PO SCH (09:28)
[2019-03-27] MEDS: ATORVASTATIN 40 MG TAB PO SCH (09:28)
[2019-03-27] MEDS: ACETAMINOPHEN 65 ML IV SCH ×3 (09:50→21:55)
--- NOTE | 2019-03-27 09:57 | Pharmacy Report ---
Pharmacy Glycemic Short Note 2 - Date of Service March 27, 2019 - Glycemic Short BSG Results (Last 24 hours): 03/26/19 03/26/19 03/26/19 10:03 11:57 13:11 Glucose 273 H POC Glucose 288 H 281 H 03/26/19 03/26/19 03/26/19 16:40 16:42 20:44 Glucose POC Glucose 380 H* 371 H* 340 H* 03/26/19 03/26/19 03/27/19 20:45 23:13 01:46 Glucose POC Glucose 356 H* 263 H 154 H 03/27/19 03/27/19 04:11 08:27 Glucose 162 H POC Glucose 81 OUTPATIENT ANTIDIABETIC REGIMEN: * Lantus 40 units AM + 35 units PM * Humalog with meals: 1 unit per ~5 grams CHOs * A1c = ? The patient is currently receiving: * Basal Insulin: Lantus 40 units + 45 units given yesterday * Correctional Insulin: Novolog Correction per scale ACHS Goal Range: Low 110 mg/dL - High 140 mg/dL Correction Factor: 12 mg/dL/unit * Prandial Insulin: Per carb ratio of 1 unit per 4 grams CHO consumed ASSESSMENT: 03/27 * BSGs climbed quickly post-op yesterday, peaking in the mid-300s. Multiple doses of SQ insulin given and increased basal insulin doses did ultimately result in BSGs dropping to as low as 81 overnight. * Patient remains nauseated today, c/o very little appetite and not eating much with meals * Will continue to utilize Lantus dosing per scale due to poor appetite and uncertain basal requirements at this time * Current CF and CR are reasonable to continue. * Patient has requested overnight BSG checks due to nocturnal hypoglycemia since becoming ill 03/26 * Type 2 diabetic admitted for sepsis, pyelonephritis, KHANG and nephrolithiasis * Pt is s/p urgent lithotripsy and stent placement * Pt is known to glycemic control service from prior hospitalization. She has demonstrated she is reliant on high doses of basal insulin in the past. * She has not received her basal insulin today. Last dose given last evening (30 units Lantus). Will give 1st dose STAT and dose again this PM per scale. * Will initiate insulin doses based upon an anticipated daily insulin requirement of 120+ units * Of note, Anesthesia record reviewed and it does not appear that dexamethasone was given today PLAN FOR INPATIENT GLYCEMIC CONTROL: * Hold outpatient oral diabetes medications * Basal insulin * Lantus 30 units SQ x 1 with lunch check, then begin BID per the following scale: * 0 units if less than 100 * 25 units if 100-120 * 30 units if 121-180 * 40 units if greater than 180 * Bolus insulin * NovoLog per scale ACHS and at 0200 tonight * Goal Range: Low 110 mg/dL - High 140 mg/dL * Correction Factor: 12 mg/dL/unit * Nutritional / Prandial insulin per carb ratio of 1 unit per 4 grams CHO consumed PLAN FOR DISCHARGE: * to be determined
--- NOTE | 2019-03-27 09:59 | Family Medicine Progress Note ---
Date of Service March 27, 2019 Assessment & Plan (1) Nephrolithiasis: Corazon is a 53-year-old female with a past medical history of type 2 diabetes mellitus with chronic right foot osteo-and diabetic ulcer, hypertension, past MRSA infection who presented with 3 days of nausea/vomiting/left flank pain and who was admitted for a 6 mm left-sided calculus requiring emergent cystoscopy and stent placement. Sepsis 2/2 obstructive uropathy Tachycardic, hypertensive, and febrile with leukocytosis to 23 on admission Procalcitonin elevated to 0.58 on admit CTA/P showing renal calculi with hydronephrosis as noted below Empirically treated with daptomycin and Zosyn on admission, narrowed to Zosyn Continue IV FM and antibiotic treatment as noted below Leukocytosis downtrending today, febrile to 39.1 overnight Left renal calculus with obstructive hydronephrosis CT A/P on admission showed 6 mm left-sided calculus with hydro S/P left cystoscopy, retrograde pyelogram, and stent placement Following stent placement large volume of purulent urine was immediately drained and sent for culture Urine culture pending Continue Zosyn while awaiting sensitivities. Patient is allergic to sulfa. Nausea/vomiting 2/2 pyelonephritis/[place]/obstructive uropathy Tylenol 650 mg every 6 hours as needed. IV on order while unable to tolerate p.o. no more than 3 g per 24 hours. Zofran, Phenergan as needed Acute kidney injury KHANG 2/2 obstructive uropathy Creatinine on admission elevated to 1.6 from previously normal baseline. 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 twice daily Labetalol IV 5 mg every 6 hours KENNEDY and q4h PRN for systolic >180 as needed while/if unable to tolerate p.o carvedilol. Continue aspirin 81 mg daily Anxiety/depression Stable. Continue V[employer] FRAME OPERATOR venlafaxine 150 mg ER just DVT prophylaxis: Diet: Diabetic consistent carb Disposition: Ongoing (2) Sepsis: (3) Hypertension: (4) Hydronephrosis due to obstruction of ureter: (5) Acute kidney injury: Supervising Physician Co-Signing Physician Notes I personally examined the patient and verified all tan points of history and exam, discussed case, and agree with decision making with Dr Patel. Left-sided chest pain. Stabbing poking sensation. No shortness of breath. No chest heaviness. No diaphoresis. She is able to reproduce it by pushing on it. Nausea has improved some. Vitals noted, in general she is awake and alert pleasant fatigued appearing but otherwise in no distress. HEENT normocephalic atraumatic mucous members moist. Breathing unlabored no accessory muscle use good effort. Skin shows no rashes no pallor or icterus. Osteopathic/musculoskeletal exam shows left sided approximately ribs 7-8 intercostal tenderness quite reproducible reproducing her symptoms exactly, with diminished range of motion with ribs being much more stuck in exhalation. Inhibitory pressure/balanced ligamentous tension with improvement in tissue texturepatient tolerated reasonably well. Obstructing kidney stone causing pyelonephritis and sepsiscontinue Zosyn. Await cultures. Yeast noted, if this seems to be the dominant growth then we will need to consult infectious disease, await anticipated gram-negative growth. Await blood cultures. Continue supportive care. Stone has been stented, appreciate urology assistance. Chest painappears to be intercostal spasm. Lidocaine patch. Somatic dysfunction rib regionOMT as above. DVT prophylaxisSCDs. Subjective Corazon reports she feels extremely nauseus and has had several episodes of nonbilious emesis. She continue to have L flank pain which is not well controlled this morning.. +Feeling feverish, chills, sweats. Mild anterior L abdominal pain. No hematuria, endorses four smelling purulent urine following her stent placement. She has not yet tried to have breakfast this morning. She is concerned about her hemoglobin and kidney function, labs pending at time of visit. Endroses soem sharp left sided intermittent chest discomfort without spread into the arm/neck. Denies shortness of breath, dyspnea, vision change, lightheadedness, dizziness. No othre questions or concerns this morning. Review of Systems Review of Systems: Constitutional:Endorses fevers, chills, sweats. Eyes: Denies vision change ENT: Denies ear pain, sore throat, sinus pain Cardiovascular: Denies chest pressure, palpitations, extremity swelling. Chest discomfort as noted in HPI. Respiratory: Denies shortness of breath, cough, sputum production, difficulty breathing Gastrointestinal: Endorses abdominal pain, nausea, vomiting, diarrhea. Genitourinary: Endorses purulent, foul smelling urine without blood. Musculoskeletal: Denies focal weakness, muscle aches/pain Integumentary:Denies rash, lesions, bruising Neurological: Endorses L frontal throbbing headache, denies numbness, tingling, focal weakness Physical Exam Physical Exam: General: A&Ox3. Appears ill but nontoxic. Cooperative. HEENT: Atraumatic, normocephalic. Pulm: CTAB A&P. -wheezes, -rales, -rhonchi. Symmetrical chest rise. No increase work of breathing. No respiratory distress. Cardiac: soft systolic murmur. RRR, -rg. Radial pulses intact and symmetrical. Abdominal: L CVA tenderness. Mild LLQ adbominal discomfort to palpation. Nondistended, soft. BS present. Extremity: Moving all extremities equally. R foot wrapped in a guaze dressing C/D/I Results & Data Vital Signs (Past 12 Hours) Vital Signs Temp Pulse Pulse Resp BP Pulse Ox 03/27/19 07:25 39.1 C H 93 H 18 187/81 H 96 03/27/19 06:17 37.2 C 03/27/19 04:00 37.4 C 75 20 126/76 95 03/27/19 01:41 37.2 C 03/27/19 00:06 80 03/26/19 23:47 38.1 C H 67 20 102/68 98 PG Care Time/CCT Total # of Minutes Spent Total Time Spent with Patient: Total time spent is greater than 50% in coordination of care (as documented) at patient's floor/unit and/or counseling patient: Resident Activity Tracking Resident Involvement: Resident Care Provided Care Provided: Adult Hospital Medicine
--- NOTE | 2019-03-27 10:34 | Urology Progress Note ---
Date of Service March 27, 2019 Assessment & Plan (1) Acute kidney injury: (2) Sepsis: (3) Hydronephrosis due to obstruction of ureter: 53yo F s/p POD #1 emergent left ureteral stent placement for septic 8mm obstructing distal left ureteral stone. Pt status discussed with Dr. Waddell/ Remains febrile this AM, slowly improving. Kidney UC&S prelim few yeast - will initiate fluconazole 200mg IV daily. Will need 14 day course at last. Will send specimen for yeast culture. Creatinine elevation likely delayed response due to KHANG. Recommend light IVFs if primary team agreeable given her hx of heart failure (per patient). Definitive stone treatment will be discussed as outpatient after day course of abx/antifungals as indicated per final cultures. Will continue to monitor while inpatient. Subjective 53yo F s/p POD #1 emergent left ureteral stent placement for septic 8mm obstructing distal left ureteral stone. Doing okay this AM, VS stable. Having some left flank discomfort with voiding and position changes, otherwise tolerating well. Reports hematuria and dysuria off and on. Denies n/v. Febrile, Tmax 39.1C - states she feels it is starting to break. Creatinine elevated to 1.79 from 1.68 yesterday. Leukocytosis improving to 16.2 from 23.1 yesterday Review of Systems Review of Systems: All systems reviewed & are unremarkable except as noted in HPI & below Physical Exam Physical Exam: A&Ox3 RRR Abd large, soft, nontender Voided urine visualized - yellow clear Results & Data Vital Signs (Past 12 Hours) Vital Signs Temp Pulse Pulse Resp BP Pulse Ox 03/27/19 07:25 39.1 C H 93 H 18 187/81 H 96 03/27/19 06:17 37.2 C 03/27/19 04:00 37.4 C 75 20 126/76 95 03/27/19 01:41 37.2 C 03/27/19 00:06 80 03/26/19 23:47 38.1 C H 67 20 102/68 98 Laboratory Results Laboratory Results - last 48 hr 03/26/19 03/26/19 03/26/19 10:03 10:03 10:03 WBC 23.45 H RBC 4.50 Hgb 12.0 Hct 36.5 L MCV 81.1 MCH 26.7 MCHC 32.9 RDW Std Deviation 46.1 RDW Coeff of Anai 15.5 H Plt Count 371 MPV 8.5 Immature Gran % (Auto) 0.6 Neut % (Auto) 77.6 Lymph % (Auto) 10.0 [place] % (Auto) 11.2 Eos % (Auto) 0.5 Baso % (Auto) 0.1 Immature Gran # (Auto) 0.13 H Neut # (Auto) 18.21 H Lymph # (Auto) 2.35 [place] # (Auto) 2.62 H Eos # (Auto) 0.11 Baso # (Auto) 0.03 PT 11.5 INR 1.1 APTT 28.4 PTT Ratio 1.0 Sodium 132 L Potassium 4.5 Chloride 98 Carbon Dioxide 26 Anion Gap 8.0 BUN 18 Creatinine 1.68 H Est Cr Clr Drug Dosing 48.5 Est GFR ( Amer) 39.2 Est GFR (Non-Af Amer) 33.8 BUN/Creatinine Ratio 10.7 Glucose 273 H POC Glucose Lactate Calcium 9.4 Phosphorus 2.3 L Magnesium 1.8 Total Bilirubin 1.1 H AST 9 L ALT 12 Alkaline Phosphatase 159 H CK-MB (CK-2) < 1.0 Troponin I 0.015 Total Protein 7.2 Albumin 2.9 L Globulin 4.3 H Albumin/Globulin Ratio 0.7 L Procalcitonin Urine Color Urine Appearance Urine pH Ur Specific [place] Urine Protein Urine Glucose (UA) Urine Ketones Urine Blood Urine Nitrite Urine Bilirubin Urine Urobilinogen Ur Leukocyte Esterase Urine WBC (Auto) Urine RBC (Auto) U Hyaline Cast (Auto) U Epithel Cells (Auto) Urine Bacteria (Auto) Ur Renal Epithelial Cell Amorphous Sediment Granular Casts 03/26/19 03/26/19 03/26/19 10:03 10:03 10:08 WBC RBC Hgb Hct MCV MCH MCHC RDW Std Deviation RDW Coeff of Anai Plt Count MPV Immature Gran % (Auto) Neut % (Auto) Lymph % (Auto) [place] % (Auto) Eos % (Auto) Baso % (Auto) Immature Gran # (Auto) Neut # (Auto) Lymph # (Auto) [place] # (Auto) Eos # (Auto) Baso # (Auto) PT INR APTT PTT Ratio Sodium Potassium Chloride Carbon Dioxide Anion Gap BUN Creatinine Est Cr Clr Drug Dosing Est GFR ( Amer) Est GFR (Non-Af Amer) BUN/Creatinine Ratio Glucose POC Glucose Lactate 1.6 Calcium Phosphorus Magnesium Total Bilirubin AST ALT Alkaline Phosphatase CK-MB (CK-2) Troponin I Total Protein Albumin Globulin Albumin/Globulin Ratio Procalcitonin 0.58 H Urine Color Dark Yellow Urine Appearance Turbid A Urine pH 5.0 Ur Specific [place] 1.027 Urine Protein 4+ H Urine Glucose (UA) Trace H Urine Ketones 1+ H Urine Blood 2+ H Urine Nitrite Negative Urine Bilirubin Negative Urine Urobilinogen Negative Ur Leukocyte Esterase Negative Urine WBC (Auto) 5-10 H Urine RBC (Auto) 5-10 H U Hyaline Cast (Auto) 10-30 H U Epithel Cells (Auto) >30 H Urine Bacteria (Auto) Negative Ur Renal Epithelial Cell 0-5 Amorphous Sediment Present A Granular Casts 5-10 H 03/26/19 03/26/19 03/26/19 11:57 13:11 16:40 WBC RBC Hgb Hct MCV MCH MCHC RDW Std Deviation RDW Coeff of Anai Plt Count MPV Immature Gran % (Auto) Neut % (Auto) Lymph % (Auto) [place] % (Auto) Eos % (Auto) Baso % (Auto) Immature Gran # (Auto) Neut # (Auto) Lymph # (Auto) [place] # (Auto) Eos # (Auto) Baso # (Auto) PT INR APTT PTT Ratio Sodium Potassium Chloride Carbon Dioxide Anion Gap BUN Creatinine Est Cr Clr Drug Dosing Est GFR ( Amer) Est GFR (Non-Af Amer) BUN/Creatinine Ratio Glucose POC Glucose 288 H 281 H 380 H* Lactate Calcium Phosphorus Magnesium Total Bilirubin AST ALT Alkaline Phosphatase CK-MB (CK-2) Troponin I Total Protein Albumin Globulin Albumin/Globulin Ratio Procalcitonin Urine Color Urine Appearance Urine pH Ur Specific [place] Urine Protein Urine Glucose (UA) Urine Ketones Urine Blood Urine Nitrite Urine Bilirubin Urine Urobilinogen Ur Leukocyte Esterase Urine WBC (Auto) Urine RBC (Auto) U Hyaline Cast (Auto) U Epithel Cells (Auto) Urine Bacteria (Auto) Ur Renal Epithelial Cell Amorphous Sediment Granular Casts 03/26/19 03/26/19 03/26/19 16:42 20:44 20:45 WBC RBC Hgb Hct MCV MCH MCHC RDW Std Deviation RDW Coeff of Anai Plt Count MPV Immature Gran % (Auto) Neut % (Auto) Lymph % (Auto) [place] % (Auto) Eos % (Auto) Baso % (Auto) Immature Gran # (Auto) Neut # (Auto) Lymph # (Auto) [place] # (Auto) Eos # (Auto) Baso # (Auto) PT INR APTT PTT Ratio Sodium Potassium Chloride Carbon Dioxide Anion Gap BUN Creatinine Est Cr Clr Drug Dosing Est GFR ( Amer) Est GFR (Non-Af Amer) BUN/Creatinine Ratio Glucose POC Glucose 371 H* 340 H* 356 H* Lactate Calcium Phosphorus Magnesium Total Bilirubin AST ALT Alkaline Phosphatase CK-MB (CK-2) Troponin I Total Protein Albumin Globulin Albumin/Globulin Ratio Procalcitonin Urine Color Urine Appearance Urine pH Ur Specific [place] Urine Protein Urine Glucose (UA) Urine Ketones Urine Blood Urine Nitrite Urine Bilirubin Urine Urobilinogen Ur Leukocyte Esterase Urine WBC (Auto) Urine RBC (Auto) U Hyaline Cast (Auto) U Epithel Cells (Auto) Urine Bacteria (Auto) Ur Renal Epithelial Cell Amorphous Sediment Granular Casts 03/26/19 03/27/19 03/27/19 23:13 01:46 04:11 WBC RBC Hgb Hct MCV MCH MCHC RDW Std Deviation RDW Coeff of Anai Plt Count MPV Immature Gran % (Auto) Neut % (Auto) Lymph % (Auto) [place] % (Auto) Eos % (Auto) Baso % (Auto) Immature Gran # (Auto) Neut # (Auto) Lymph # (Auto) [place] # (Auto) Eos # (Auto) Baso # (Auto) PT INR APTT PTT Ratio Sodium Potassium Chloride Carbon Dioxide Anion Gap BUN Creatinine Est Cr Clr Drug Dosing Est GFR ( Amer) Est GFR (Non-Af Amer) BUN/Creatinine Ratio Glucose POC Glucose 263 H 154 H 81 Lactate Calcium Phosphorus Magnesium Total Bilirubin AST ALT Alkaline Phosphatase CK-MB (CK-2) Troponin I Total Protein Albumin Globulin Albumin/Globulin Ratio Procalcitonin Urine Color Urine Appearance Urine pH Ur Specific [place] Urine Protein Urine Glucose (UA) Urine Ketones Urine Blood Urine Nitrite Urine Bilirubin Urine Urobilinogen Ur Leukocyte Esterase Urine WBC (Auto) Urine RBC (Auto) U Hyaline Cast (Auto) U Epithel Cells (Auto) Urine Bacteria (Auto) Ur Renal Epithelial Cell Amorphous Sediment Granular Casts 03/27/19 03/27/19 03/27/19 08:12 08:27 08:27 WBC 16.24 H RBC 4.15 L Hgb 11.1 L Hct 33.9 L MCV 81.7 MCH 26.7 MCHC 32.7 RDW Std Deviation 46.8 H RDW Coeff of Anai 15.6 H Plt Count 304 MPV 8.6 Immature Gran % (Auto) 0.4 Neut % (Auto) 80.0 Lymph % (Auto) 9.0 [place] % (Auto) 8.0 Eos % (Auto) 2.5 Baso % (Auto) 0.1 Immature Gran # (Auto) 0.06 H Neut # (Auto) 12.99 H Lymph # (Auto) 1.46 [place] # (Auto) 1.30 H Eos # (Auto) 0.41 Baso # (Auto) 0.02 PT INR APTT PTT Ratio Sodium 135 L Potassium 3.8 D Chloride 103 Carbon Dioxide 24 Anion Gap 8.0 BUN 22 H Creatinine 1.79 H Est Cr Clr Drug Dosing 45.6 Est GFR ( Amer) 36.3 Est GFR (Non-Af Amer) 31.3 BUN/Creatinine Ratio 12.5 Glucose 162 H POC Glucose 163 H Lactate Calcium 9.1 Phosphorus Magnesium Total Bilirubin AST ALT Alkaline Phosphatase CK-MB (CK-2) Troponin I Total Protein Albumin Globulin Albumin/Globulin Ratio Procalcitonin Urine Color Urine Appearance Urine pH Ur Specific [place] Urine Protein Urine Glucose (UA) Urine Ketones Urine Blood Urine Nitrite Urine Bilirubin Urine Urobilinogen Ur Leukocyte Esterase Urine WBC (Auto) Urine RBC (Auto) U Hyaline Cast (Auto) U Epithel Cells (Auto) Urine Bacteria (Auto) Ur Renal Epithelial Cell Amorphous Sediment Granular Casts 03/27/19 11:49 WBC RBC Hgb Hct MCV MCH MCHC RDW Std Deviation RDW Coeff of Anai Plt Count MPV Immature Gran % (Auto) Neut % (Auto) Lymph % (Auto) [place] % (Auto) Eos % (Auto) Baso % (Auto) Immature Gran # (Auto) Neut # (Auto) Lymph # (Auto) [place] # (Auto) Eos # (Auto) Baso # (Auto) PT INR APTT PTT Ratio Sodium Potassium Chloride Carbon Dioxide Anion Gap BUN Creatinine Est Cr Clr Drug Dosing Est GFR ( Amer) Est GFR (Non-Af Amer) BUN/Creatinine Ratio Glucose POC Glucose 178 H Lactate Calcium Phosphorus Magnesium Total Bilirubin AST ALT Alkaline Phosphatase CK-MB (CK-2) Troponin I Total Protein Albumin Globulin Albumin/Globulin Ratio Procalcitonin Urine Color Urine Appearance Urine pH Ur Specific [place] Urine Protein Urine Glucose (UA) Urine Ketones Urine Blood Urine Nitrite Urine Bilirubin Urine Urobilinogen Ur Leukocyte Esterase Urine WBC (Auto) Urine RBC (Auto) U Hyaline Cast (Auto) U Epithel Cells (Auto) Urine Bacteria (Auto) Ur Renal Epithelial Cell Amorphous Sediment Granular Casts
[2019-03-27] MEDS ORDERED: LABETALOL HCL IV 5 MG/ML 20ML IV PRN (10:51)
[2019-03-27] MEDS ORDERED: INSULIN GLARGINE SOLOSTAR 100 UNITS/ML 3 ML PEN SC SCH ×2 (11:30→21:00)
[2019-03-27] MEDS: LABETALOL HCL IV 5 MG/ML 20ML IV SCH ×3 (12:26→21:55)
[2019-03-27] MEDS: PROMETHAZINE HCL 25 MG TAB PO PRN (12:27)
[2019-03-27] MEDS ORDERED: FLUCONAZOLE 200 MG/100 ML BAG IV ONE (13:00)
[2019-03-27] MEDS: DICLOFENAC SOD 1% GEL 100 GM TUBE EXT SCH ×2 (17:38→20:12)
[2019-03-27] MEDS: VENLAFAXINE HCL XR 150 MG CAPXR PO SCH (20:11)
[2019-03-27] MEDS: INSULIN GLARGINE SOLOSTAR 100 UNITS/ML 3 ML PEN SC SCH ×2 (20:38→20:40)
[2019-03-28] MEDS: INSULIN ASPART 100 UNITS/ML 3 ML PEN SC SCH ×5 (02:14→20:42)
[2019-03-28] MEDS: ACETAMINOPHEN 65 ML IV SCH ×2 (03:45→10:17)
[2019-03-28] MEDS: LABETALOL HCL IV 5 MG/ML 20ML IV SCH ×2 (04:08→10:40)
[2019-03-28 07:39] LABS: Estimated Average Glucose 214 mg/dl; Hemoglobin A1C 9.1 % (4.5-5.6)
[2019-03-28 08:00] LABS: Basophils # (auto) 0.02 K/uL (0-0.2); Basophils % (auto) 0.2 %; Eosinophils # (auto) 0.22 K/uL (0-0.5); Eosinophils % (auto) 2.1 %; Hematocrit (blood only) 29.9 % (37-47); Hemoglobin 9.8 g/dL (12.0-16.0); Immature Granulocytes # (auto) 0.03 K/uL (0.00-0.02); Immature Granulocytes % (auto) 0.3 %; Lymphocytes # (auto) 1.41 K/uL (1.2-3.4); Lymphocytes % (auto) 13.2 %; Mean Corpuscular Hgb Conc 32.8 g/dL (32-36); Mean Corpuscular Volume 79.5 fL (80-100); Mean Platelet Volume 9.1 fL (7.4-10.4); Monocytes # (auto) 1.31 K/uL (0.11-0.59); Monocytes % (auto) 12.3 %; Neutrophils % (auto) 71.9 %; Platelet Count 304 K/uL (130-400); RDW Coefficient of Variation 15.6 % (11.5-14.5); RDW Standard Deviation 45.8 fL (36.4-46.3); Red Blood Count 3.76 M/uL (4.2-5.4); White Blood Count 10.69 K/uL (4.8-10.8)
[2019-03-28 08:03] LABS: BUN Creatinine Ratio 13.1 (10-20); Calcium 8.6 mg/dl (8.5-10.1); Creatinine Clr Calc Pharmacy 59.1 ml/min; Est GFR (African American) 49.8; Est GFR (Non-African American) 42.9; Potassium 3.5 mmol/L (3.5-5.1)
[2019-03-28] MEDS: CHECK SCOPOLAMINE PATCH PLACEMENT SCH ×3 (08:05→23:22)
[2019-03-28] MEDS: PIPERACILLIN/TAZOBACTAM 4.5 GM in DEXTROSE 5% 100 ML IV SCH (08:05)
[2019-03-28] MEDS: DICLOFENAC SOD 1% GEL 100 GM TUBE EXT SCH ×4 (08:06→20:39)
[2019-03-28] MEDS: INSULIN GLARGINE SOLOSTAR 100 UNITS/ML 3 ML PEN SC SCH (08:54)
[2019-03-28] MEDS: ASPIRIN 81 MG ECTAB PO SCH (08:55)
[2019-03-28] MEDS: ATORVASTATIN 40 MG TAB PO SCH (08:55)
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
[2019-03-28] MEDS ORDERED: CASPOFUNGIN 70 MG in SODIUM CHLORIDE 0.9% 250 ML IV SCH (10:15)
--- NOTE | 2019-03-28 11:26 | Family Medicine Progress Note ---
Date of Service March 28, 2019 Assessment & Plan (1) Nephrolithiasis: Corazon is a 53-year-old female with a past medical history of type 2 diabetes mellitus with chronic right foot osteo-and diabetic ulcer, hypertension, past MRSA infection who presented with 3 days of nausea/vomiting/left flank pain and who was admitted for a 6 mm left-sided calculus requiring emergent cystoscopy and stent placement. Sepsis 2/2 obstructive uropathy Tachycardic, hypertensive, and febrile with leukocytosis to 23 on admission Procalcitonin elevated to 0.58 on admit CTA/P showing renal calculi with hydronephrosis as noted below Empirically treated with daptomycin and Zosyn on admission, narrowed to Zosyn Continue IV FM and antibiotic treatment as noted below Leukocytosis downtrending today, febrile to 39.1 overnight Left renal calculus with obstructive hydronephrosis CT A/P on admission showed 6 mm left-sided calculus with hydro S/P left cystoscopy, retrograde pyelogram, and stent placement Following stent placement large volume of purulent urine was immediately drained and sent for culture Urine culture shows non-Taylor yeast without bacterial growth at this time ID consulted over concerns for yeast infection Added IV caspofungin 50 mg daily pending final culture results per ID. Continue zosyn as well and reassess with cultures in the Am. Nausea/vomiting 2/2 pyelonephritis/[place]/obstructive uropathy, improved Tylenol 650 mg every 6 hours as needed. IV on order while unable to tolerate p.o. no more than 3 g per 24 hours. Zofran, Phenergan as needed Acute kidney injury KHANG 2/2 obstructive uropathy Creatinine on admission elevated to 1.6 from previously normal baseline. Creatinine downtrending to 1.38 from 1.79 today Avoid nephrotoxins, including NSAIDs Continue IV hydration as needed, BMP daily Type 2 diabetes mellitus A1c 9.1% Hyperglycemia in the setting of acute illness Hold IMPROVEMENT ADVISOR glargine until resuming adequate p.o. Aspart SSI Dose checks AC/at bedtime Chronic diabetic right foot ulcer with necrosis Glycemic control as above Wound care Hypertension IMPROVEMENT ADVISOR carvedilol 25 mg p.o. twice daily Labetalol IV 5 mg q4h PRN for systolic >180 as needed while/if unable to tolerate Continue aspirin 81 mg daily Anxiety/depression Stable. Continue IMPROVEMENT ADVISOR venlafaxine 150 mg ER just DVT prophylaxis: Diet: Diabetic consistent carb Disposition: Ongoing Supervising Physician Co-Signing Physician Notes I personally examined the patient and verified all tan points of history and exam, discussed case, and agree with decision making with Dr Patel. Feeling much better overall. Does have diarrhea. Notes is getting quite copious. Otherwise improved. Vitals noted, in general she is awake and alert pleasant no distress. HEENT, normocephalic atraumatic mucous membranes moist. Breathing unlabored no accessory muscle use good effort. Skin shows no rashes no pallor or icterus. Neuro shows no focal deficits. Obstructing kidney stone causing pyelonephritis and sepsisseems to have actually been yeast related. Cultures thus far only growing yeast, infectious disease input appreciated on the treatment of this. When discussing with patient the diarrhea is likely a side effect of the Zosyn, we did a andres and candid discussion on risks and benefits of continuing with probiotics, stopping, or alternative strategies. Given the lack of gram-negative growing thus far, and especially in light of her situation, its fairly unlikely that she will show gram-negative growth, and it is quite likely this was all yeast infection. Also given her improvement, should gram-negative show is a late growth, reinstituting gram-negative coverage will likely come without her losing much ground clinically. Because of the diarrhea, and because of her understanding of the c linical situation and its risks and benefits, she is requesting that we stop the Zosyn and start probiotics, and only resume gram-negative coverage of gram- negative rods are growing. Continue caspofungin otherwise. Continue supportive care. Stone has been stented, appreciate urology assistance. Appreciate ID input. Diarrhea - most likely zosyn side effect. Cdiff testing suggests carrier state rather than active infection. hold zosyn at her request as above, start probiotics, follow. if failing to improve may need to retest or consider empiric Cdiff treatment, but this seems unlikely to be the case. Chest painappears to be intercostal spasm. OMT done yesterday, opted for voltaren gel instead of lidocaine patch given adhesive reaction. Somatic dysfunction rib regionOMT done 03/27 DVT prophylaxisSCDs. Subjective Patient reports she feels "much, much better today ". She denies fevers, sweats overnight. Had some shaking chills this morning. She reports her abdominal and flank pain is almost completely resolved with some minimal residual flank achiness. No nausea/vomiting this morning. No polyuria, no dysuria. No bette rtness of breath, difficulty breathing, chest pain, chest pressure. She reports her right foot feels like it is at its normal baseline, no increased pain or saturation of the dressing. Review of Systems Review of Systems: Constitutional: Eyes fever/sweats but notes occasional shaking chills. Eyes: Denies vision change ENT: Denies ear pain, sore throat, sinus pain Cardiovascular: Denies chest pressure, palpitations, extremity swelling. Respiratory: Denies shortness of breath, cough, sputum production, difficulty breathing Gastrointestinal: Versus minimal abdominal/flank pain greatly improved from yesterday. Denies nausea/vomiting/diarrhea. Genitourinary: Denies dysuria/polyuria today. Musculoskeletal: Denies focal weakness, muscle aches/pain Integumentary:Denies rash, lesions, bruising Neurological: No headache this morning Physical Exam 2 Physical Exam: General: A&Ox3. Appears ill but nontoxic. Cooperative. HEENT: Atraumatic, normocephalic. Pulm: CTAB A&P. -wheezes, -rales, -rhonchi. Symmetrical chest rise. No increase work of breathing. No respiratory distress. Cardiac: soft systolic murmur. RRR, -rg. Radial pulses intact and symmetrical. Abdominal: Mild L CVA tenderness. Mild LLQ adbominal discomfort to palpation, improved from prior. Nondistended, soft. BS present. Extremity: Moving all extremities equally. R foot wrapped in a gauze dressing C/D/I Results & Data Vital Signs (Past 12 Hours) Vital Signs Temp Pulse Pulse Pulse Resp BP BP 03/28/19 07:51 37.3 C 71 18 127/69 03/28/19 04:00 37.9 C H 89 18 136/75 03/28/19 00:53 87 Pulse Ox 03/28/19 07:51 96 03/28/19 04:00 91 03/28/19 00:53 PG Care Time/CCT Total # of Minutes Spent Total Time Spent with Patient: Total time spent is greater than 50% in coordination of care (as documented) at patient's floor/unit and/or counseling patient: Resident Activity Tracking Resident Involvement: Resident Care Provided Care Provided: Adult Hospital Medicine
--- NOTE | 2019-03-28 11:28 | Urology Progress Note ---
Date of Service March 28, 2019 Assessment & Plan (1) Pyelonephritis: (2) Taylor pyelonephritis: (3) Kidney stone: 53yo F POD #2 s/p emergent Left ureteral stent placement in context of obstructing 8mm distal Left stone, taylor pyelonephritis. Awaiting C.Diff cultures. Appreciate ID's recommendations for antifungal management. Definitive stone management to be discussed as outpatient once clinically stable, will arrange for close patient followup. NO further surgical intervention required at this time. Please reconsult with additional questions, concerns or changes in patient status. Subjective 53yo F POD #1 s/p emergent left ureteral stent placement due to septic 8mm obs distal left ureteral stone. Pt subjectively feeling better today, however she is concerned she is developing c.diff. Culture pending. Pt reports slight left flank pain, much improved. Voiding without difficulty, no LUTS complaints. No other new issues or concerns. Review of Systems Review of Systems: All systems reviewed & are unremarkable except as noted in HPI & below Physical Exam Physical Exam: A&Ox3 RRR Abd soft, nontender, obese no LE edema Results & Data Vital Signs (Past 12 Hours) Vital Signs Temp Pulse Pulse Pulse Resp BP BP 03/28/19 07:51 37.3 C 71 18 127/69 03/28/19 04:00 37.9 C H 89 18 136/75 03/28/19 00:53 87 Pulse Ox 03/28/19 07:51 96 03/28/19 04:00 91 03/28/19 00:53 Laboratory Results Laboratory Results - last 48 hr 03/26/19 03/26/19 03/26/19 20:44 20:45 23:13 WBC RBC Hgb Hct MCV MCH MCHC RDW Std Deviation RDW Coeff of Anai Plt Count MPV Immature Gran % (Auto) Neut % (Auto) Lymph % (Auto) Izard % (Auto) Eos % (Auto) Baso % (Auto) Immature Gran # (Auto) Neut # (Auto) Lymph # (Auto) Iz[place] # (Auto) Eos # (Auto) Baso # (Auto) Sodium Potassium Chloride Carbon Dioxide Anion Gap BUN Creatinine Est Cr Clr Drug Dosing Est GFR ( Amer) Est GFR (Non-Af Amer) BUN/Creatinine Ratio Glucose POC Glucose 340 H* 356 H* 263 H Estimat Average Glucose Hemoglobin A1c Calcium Stl C. diff Tox B Gene Stl C.difficile Tox A&B 03/27/19 03/27/19 03/27/19 01:46 04:11 08:12 WBC RBC Hgb Hct MCV MCH MCHC RDW Std Deviation RDW Coeff of Anai Plt Count MPV Immature Gran % (Auto) Neut % (Auto) Lymph % (Auto) [place] % (Auto) Eos % (Auto) Baso % (Auto) Immature Gran # (Auto) Neut # (Auto) Lymph # (Auto) Iz[place] # (Auto) Eos # (Auto) Baso # (Auto) Sodium Potassium Chloride Carbon Dioxide Anion Gap BUN Creatinine Est Cr Clr Drug Dosing Est GFR ( Amer) Est GFR (Non-Af Amer) BUN/Creatinine Ratio Glucose POC Glucose 154 H 81 163 H Estimat Average Glucose Hemoglobin A1c Calcium Stl C. diff Tox B Gene Stl C.difficile Tox A&B 03/27/19 03/27/19 03/27/19 08:27 08:27 11:49 WBC 16.24 H RBC 4.15 L Hgb 11.1 L Hct 33.9 L MCV 81.7 MCH 26.7 MCHC 32.7 RDW Std Deviation 46.8 H RDW Coeff of Anai 15.6 H Plt Count 304 MPV 8.6 Immature Gran % (Auto) 0.4 Neut % (Auto) 80.0 Lymph % (Auto) 9.0 Izard % (Auto) 8.0 Eos % (Auto) 2.5 Baso % (Auto) 0.1 Immature Gran # (Auto) 0.06 H Neut # (Auto) 12.99 H Lymph # (Auto) 1.46 Izard # (Auto) 1.30 H Eos # (Auto) 0.41 Baso # (Auto) 0.02 Sodium 135 L Potassium 3.8 D Chloride 103 Carbon Dioxide 24 Anion Gap 8.0 BUN 22 H Creatinine 1.79 H Est Cr Clr Drug Dosing 45.6 Est GFR ( Amer) 36.3 Est GFR (Non-Af Amer) 31.3 BUN/Creatinine Ratio 12.5 Glucose 162 H POC Glucose 178 H Estimat Average Glucose Hemoglobin A1c Calcium 9.1 Stl C. diff Tox B Gene Stl C.difficile Tox A&B 03/27/19 03/27/19 03/27/19 16:55 19:20 20:01 WBC RBC Hgb Hct MCV MCH MCHC RDW Std Deviation RDW Coeff of Anai Plt Count MPV Immature Gran % (Auto) Neut % (Auto) Lymph % (Auto) Iz[place] % (Auto) Eos % (Auto) Baso % (Auto) Immature Gran # (Auto) Neut # (Auto) Lymph # (Auto) Izard # (Auto) Eos # (Auto) Baso # (Auto) Sodium Potassium Chloride Carbon Dioxide Anion Gap BUN Creatinine Est Cr Clr Drug Dosing Est GFR ( Amer) Est GFR (Non-Af Amer) BUN/Creatinine Ratio Glucose POC Glucose 204 H 236 H 220 H Estimat Average Glucose Hemoglobin A1c Calcium Stl C. diff Tox B Gene Stl C.difficile Tox A&B 03/28/19 03/28/19 03/28/19 01:58 05:33 05:37 WBC 10.69 RBC 3.76 L Hgb 9.8 L Hct 29.9 L MCV 79.5 L MCH 26.1 MCHC 32.8 RDW Std Deviation 45.8 RDW Coeff of Anai 15.6 H Plt Count 304 MPV 9.1 Immature Gran % (Auto) 0.3 Neut % (Auto) 71.9 Lymph % (Auto) 13.2 Izard % (Auto) 12.3 Eos % (Auto) 2.1 Baso % (Auto) 0.2 Immature Gran # (Auto) 0.03 H Neut # (Auto) 7.70 H Lymph # (Auto) 1.41 Izard # (Auto) 1.31 H Eos # (Auto) 0.22 Baso # (Auto) 0.02 Sodium Potassium Chloride Carbon Dioxide Anion Gap BUN Creatinine Est Cr Clr Drug Dosing Est GFR ( Amer) Est GFR (Non-Af Amer) BUN/Creatinine Ratio Glucose POC Glucose 176 H Estimat Average Glucose 214 Hemoglobin A1c 9.1 H Calcium Stl C. diff Tox B Gene Stl C.difficile Tox A&B 03/28/19 03/28/19 03/28/19 05:37 07:56 10:55 WBC RBC Hgb Hct MCV MCH MCHC RDW Std Deviation RDW Coeff of Anai Plt Count MPV Immature Gran % (Auto) Neut % (Auto) Lymph % (Auto) Iz[place] % (Auto) Eos % (Auto) Baso % (Auto) Immature Gran # (Auto) Neut # (Auto) Lymph # (Auto) Izard # (Auto) Eos # (Auto) Baso # (Auto) Sodium 135 L Potassium 3.5 Chloride 105 Carbon Dioxide 23 Anion Gap 8.0 BUN 18 Creatinine 1.38 H D Est Cr Clr Drug Dosing 59.1 Est GFR ( Amer) 49.8 Est GFR (Non-Af Amer) 42.9 BUN/Creatinine Ratio 13.1 Glucose 174 H POC Glucose 164 H Estimat Average Glucose Hemoglobin A1c Calcium 8.6 Stl C. diff Tox B Gene Positive Cdiff Gene H Stl C.difficile Tox A&B Negative Cdiff Toxin 03/28/19 11:45 WBC RBC Hgb Hct MCV MCH MCHC RDW Std Deviation RDW Coeff of Anai Plt Count MPV Immature Gran % (Auto) Neut % (Auto) Lymph % (Auto) [place] % (Auto) Eos % (Auto) Baso % (Auto) Immature Gran # (Auto) Neut # (Auto) Lymph # (Auto) Izard # (Auto) Eos # (Auto) Baso # (Auto) Sodium Potassium Chloride Carbon Dioxide Anion Gap BUN Creatinine Est Cr Clr Drug Dosing Est GFR ( Amer) Est GFR (Non-Af Amer) BUN/Creatinine Ratio Glucose POC Glucose 217 H Estimat Average Glucose Hemoglobin A1c Calcium Stl C. diff Tox B Gene Stl C.difficile Tox A&B
--- NOTE | 2019-03-28 11:57 | Pharmacy Report ---
Pharmacy Glycemic Short Note 2 - Date of Service March 28, 2019 - Glycemic Short BSG Results (Last 24 hours): 03/27/19 03/27/19 03/27/19 11:49 16:55 19:20 Glucose POC Glucose 178 H 204 H 236 H 03/27/19 03/28/19 03/28/19 20:01 01:58 05:37 Glucose 174 H POC Glucose 220 H 176 H 03/28/19 07:56 Glucose POC Glucose 164 H OUTPATIENT ANTIDIABETIC REGIMEN: * Lantus 40 units AM + 35 units PM * Humalog with meals: 1 unit per ~5 grams CHOs * A1c = 9.1% on 03/28/19 The patient is currently receiving: * Basal Insulin: Lantus 30 units + 35 units given yesterday * Correctional Insulin: Novolog Correction per scale ACHS Goal Range: Low 110 mg/dL - High 140 mg/dL Correction Factor: 12 mg/dL/unit * Prandial Insulin: Per carb ratio of 1 unit per 4 grams CHO consumed ASSESSMENT: * Type 2 diabetic admitted for sepsis, pyelonephritis, KHANG and nephrolithiasis * Pt is s/p urgent lithotripsy and stent placement * Pt is known to glycemic control service from prior hospitalization. * Pt has received 88 units of insulin over the past 24hrs with poor control * BSGs ranging 154-236 mg/dl * 65 units of basal insulin * 23 units of prandial/correctional insulin * Reduced basal insulin dosing given yesterday morning --> will increase back to outpatient dosing * May need to tighten CF/CR based on basal insulin dosing of 75 units/day PLAN FOR INPATIENT GLYCEMIC CONTROL: * Hold outpatient oral diabetes medications * Basal insulin * Lantus 40 units SQ QAM + 35 units SQ PM * Bolus insulin * NovoLog per scale ACHS and at 0200 tonight * Goal Range: Low 110 mg/dL - High 140 mg/dL * Correction Factor: 12 mg/dL/unit * Nutritional / Prandial insulin per carb ratio of 1 unit per 4 grams CHO consumed PLAN FOR DISCHARGE: * A1c = 9.1% on 03/28/19 * Pt specific goal A1c is ~ 7% * A1c goal should be individualized based on risk of hypo/drug AE, disease duration, life expectancy, relevant co-morbidities, established vascular complication, patient attitude and expected treatment efforts, resources and support system. * A reasonable A1C goal for many non adults is <7% * A1c is greater than or equal to 9% consider dual therapy --> pt is already receiving SQ basal bolus insulin regimen, dosing may need titrated to achieved tighter glycemic control * Currently outpatient basal insulin dosing seems to be appropriate based on inpatient BSG trends * May consider increasing outpatient bolus insulin dosing from 15 units with meals to 20 units with meals to improve A1c * Metformin, if not contraindicated and if tolerated, is the preferred initial pharmacological agent for type 2 diabetes. Metformin has a long-standing evidence base for efficacy and safety, is inexpensive, and may reduce risk of cardiovascular events. * B12 supplementation may be necessary with senior living metformin use * Consider adding metformin: * Metformin XR 500mg PO daily with evening meal. Continue to titrate metformin dosing upwards as recommended. Dosage increases should be made in increments of 500 mg weekly, up to 2,000 mg/day PO, given in divided doses. Doses above 2000 mg/day may be better tolerated if divided and given 3 times per day with meals. Max: 2,550 mg/day PO, in divided doses In addition to medication changes above, implement: * Support Patient Self-Management * Healthy Lifestyle (diet, exercise, and smoking cessation) * Disease self-management (SMBG) * Prevention of complications (BP, Lipid goals, Immunizations) * Consider outpatient Diabetes Self-Management Education & Support
[2019-03-28] MEDS: VENLAFAXINE HCL XR 150 MG CAPXR PO SCH (12:27)
[2019-03-28] MEDS ORDERED: FLUCONAZOLE 100 MG/50 ML BAG IV SCH (13:00)
[2019-03-28 13:31] LABS: Cdiff Antigen Positive; Cdiff Toxin A+B Negative Cdiff Toxin (Negative)
[2019-03-28] MEDS: CETIRIZINE HCL 10 MG TABLET PO PRN (14:39)
[2019-03-28] MEDS: ACETAMINOPHEN 325 MG TAB PO PRN ×2 (17:45→23:24)
[2019-03-28] MEDS: ONDANSETRON INJ 2 MG/ML 2 ML VIAL IV PRN ×2 (17:45→23:22)
[2019-03-28] MEDS: LACTOBACILLUS ACIDOPHILUS (FLORANEX) TAB PO SCH (18:11)
[2019-03-28] MEDS: CARVEDILOL 25 MG TAB PO SCH (20:38)
[2019-03-28] MEDS ORDERED: INSULIN GLARGINE SOLOSTAR 100 UNITS/ML 3 ML PEN SC SCH (21:00)
[2019-03-29] MEDS: INSULIN ASPART 100 UNITS/ML 3 ML PEN SC SCH ×5 (02:25→21:57)
[2019-03-29 07:03] LABS: Basophils # (auto) 0.02 K/uL (0-0.2); Basophils % (auto) 0.2 %; Eosinophils # (auto) 0.34 K/uL (0-0.5); Eosinophils % (auto) 3.4 %; Hematocrit (blood only) 29.9 % (37-47); Hemoglobin 9.6 g/dL (12.0-16.0); Immature Granulocytes # (auto) 0.02 K/uL (0.00-0.02); Immature Granulocytes % (auto) 0.2 %; Lymphocytes # (auto) 2.01 K/uL (1.2-3.4); Lymphocytes % (auto) 19.9 %; Mean Corpuscular Hgb Conc 32.1 g/dL (32-36); Mean Corpuscular Volume 79.7 fL (80-100); Mean Platelet Volume 9.1 fL (7.4-10.4); Monocytes # (auto) 1.51 K/uL (0.11-0.59); Monocytes % (auto) 14.9 %; Neutrophils # (auto) 6.22 K/uL (1.4-6.5); Neutrophils % (auto) 61.4 %; Platelet Count 341 K/uL (130-400); RDW Coefficient of Variation 15.6 % (11.5-14.5); RDW Standard Deviation 46.2 fL (36.4-46.3); Red Blood Count 3.75 M/uL (4.2-5.4); White Blood Count 10.12 K/uL (4.8-10.8)
[2019-03-29 07:27] LABS: BUN Creatinine Ratio 13.3 (10-20); Calcium 9.1 mg/dl (8.5-10.1); Creatinine Clr Calc Pharmacy 59.9 ml/min; Est GFR (African American) 50.6; Est GFR (Non-African American) 43.7; Potassium 3.1 mmol/L (3.5-5.1)
[2019-03-29] MEDS ORDERED: POTASSIUM CHLORIDE 10 MEQ TABCR PO STA (07:35)
[2019-03-29] MEDS: CARVEDILOL 25 MG TAB PO SCH ×2 (09:22→21:15)
[2019-03-29] MEDS: ASPIRIN 81 MG ECTAB PO SCH (09:22)
[2019-03-29] MEDS: LACTOBACILLUS ACIDOPHILUS (FLORANEX) TAB PO SCH ×3 (09:22→17:42)
[2019-03-29] MEDS: CASPOFUNGIN 50 MG in SODIUM CHLORIDE 0.9% 250 ML IV SCH (09:23)
[2019-03-29] MEDS: ATORVASTATIN 40 MG TAB PO SCH (09:24)
[2019-03-29] MEDS: INSULIN GLARGINE SOLOSTAR 100 UNITS/ML 3 ML PEN SC SCH (09:24)
[2019-03-29] MEDS: VENLAFAXINE HCL XR 150 MG CAPXR PO SCH (09:46)
--- NOTE | 2019-03-29 09:48 | Family Medicine Progress Note ---
Date of Service March 29, 2019 Assessment & Plan (1) Nephrolithiasis: Corazon is a 53-year-old female with a past medical history of type 2 diabetes mellitus with chronic right foot osteo-and diabetic ulcer, hypertension, past MRSA infection who presented with 3 days of nausea/vomiting/left flank pain and who was admitted for a 6 mm left-sided calculus requiring emergent cystoscopy and stent placement. Sepsis 2/2 obstructive uropathy, improved Tachycardic, hypertensive, and febrile with leukocytosis to 23 on admission Procalcitonin elevated to 0.58 on admit CTA/P showed renal calculi with hydronephrosis as noted below Empirically treated with daptomycin and Zosyn on admission, narrowed to Zosyn, zosyn d/andrew based on fungal + cultures Left renal calculus with obstructive hydronephrosis CT A/P on admission showed 6 mm left-sided calculus with hydro S/P left cystoscopy, retrograde pyelogram, and stent placement Following stent placement large volume of purulent urine was immediately drained and sent for culture Urine culture shows non-Taylor yeast without bacterial growth at this time - ID consulted. Recommend minimum 14 days caspofungin IV. She will require IV access, mid-line ordered. Home caspo set up by case management starting monday. Nausea/vomiting 2/2 pyelonephritis/[place]/obstructive uropathy, improved Tylenol 650 mg every 6 hours as needed. IV on order if unable to tolerate p.o. no more than 3 g per 24 hours. Zofran, Phenergan as needed Acute kidney injury KHANG 2/2 obstructive uropathy Creatinine on admission elevated to 1.6 from previously normal baseline. Creatinine downtrending to 1.38 from 1.79 initially, stable at 1.36 today. Avoid nephrotoxins, including NSAIDs Continue IV hydration as needed, added low IVFM as below 2/2 stalled cr recover and continued GI losses. BMP daily Diarrhea - C diff PCR positive, gene negative. Clinically with continued copious liquid diarrhea - Discussed possibility of Zosyn diarrhea with pt. Has continued to have worsening diarrhea with med d/andrew - Will tx empirically with flagyl 500mg TID given past dalvance reaction with concern for vanco cross reactivity Type 2 diabetes mellitus A1c 9.1% Hyperglycemia in the setting of acute illness Hold GAME FARM SUPERVISOR glargine until resuming adequate p.o. Aspart SSI Dose checks AC/at bedtime Chronic diabetic right foot ulcer with necrosis Glycemic control as above Wound care Hypertension GAME FARM SUPERVISOR carvedilol 25 mg p.o. twice daily Labetalol IV 5 mg q4h PRN for systolic >180 as needed while/if unable to tolerate Continue aspirin 81 mg daily Anxiety/depression Stable. Continue GAME FARM SUPERVISOR venlafaxine 150 mg ER just Hypokalemia - KCl 20meQ BID - LR+20KCl 70cc/hr DVT prophylaxis: Diet: Diabetic consistent carb Disposition: Ongoing Supervising Physician Co-Signing Physician Notes I personally examined the patient and verified all tan points of history and exam, discussed case, and agree with decision making with Dr Patel. still had fever still has diarrhea, but still overall feeling much better. discussed ongoing antifungal treatment she expresses understanding. later re- called due to her stubbing toe and ripping up toenail L great toe. no pain moving foot no pain outside of area of nail. Vitals noted, in general she is awake and alert pleasant no distress. HEENT, normocephalic atraumatic mucous membranes moist. Breathing unlabored no accessory muscle use good effort. Skin shows no rashes no pallor or icterus. Neuro shows no focal deficits.. L great toe nail pulled up and out from cuticle. no open lesions/ulcerations. Dr Patel gently the nonviable nail from the remaining viable nail, and then removed it. pt tolerated well. Obstructing kidney stone causing pyelonephritis and sepsisContinue caspofungin - cultures without other growth and she continues to improve overall even off broad abx. will need at least 2wks per ID - Midline ordered and case managemnt set up antifungals for home for once shes stable enough. Continue supportive care. Stone has been stented, appreciate urology assistance. Appreciate ID input. Diarrhea - Cdiff testing suggests carrier state rather than active infection. clinical picture questions infection - OK for empiric flagyl given failure to improve with stopping zosyn and adding probiotic Chest painappears to be intercostal spasm. OMT done 03/27, continue voltaren gel toenail tear - since already pulled off ~90% of nail and was no longer viable, removed gently at the bedside and pt tolerated well. (pt requested removal, risks/benefits of doing this outlined and pt preferred removal, risk of infection about the same given the trauma already disrupted the nail). seems to have no significant pain - but if pain were to develop then would move to xrays to exclude phalangeal fracture. right now she has no pain to palpation/vibration and declines xrays - continue to follow clinically Somatic dysfunction rib regionOMT done 03/27 DVT prophylaxisSCDs. dispo - home on IV caspo (already arranged) once afebrile x24hr and diarrhea improving (assuming no new problems arise otherwise) Subjective Corazon reports she has continued to have very bad diarrhea overnight. She feels it has not gotten any better, and may have worsened slightly. She is a little nauseus with a little abdominal pain this morning. No chest pain, chest pressure, shortness of breath. no subjective fever/chills overnight, felt a little warm/sweaty. She is very tired. Would like a shower. Would like to go home as soon as possible, but recognizes that she may not be medically safe to do so yet. Review of Systems Review of Systems: Constitutional: No fever overnight, some warm sweats, no chills. Eyes: Denies vision change ENT: Denies ear pain, sore throat, sinus pain Cardiovascular: Denies chest pressure, palpitations, extremity swelling. Respiratory: Denies shortness of breath, cough, sputum production, difficulty breathing Gastrointestinal: Continues to have some nausea, abdominal pain, and improved achy flank pain today. Worsening diarrhea. Genitourinary: Denies dysuria/polyuria today. Musculoskeletal: Denies focal weakness, muscle aches/pain Integumentary:Denies rash, lesions, bruising Neurological: No headache this morning Physical Exam Physical Exam: General: A&Ox3. Appears tired but nontoxic. Cooperative. HEENT: Atraumatic, normocephalic. Pulm: CTAB A&P. -wheezes, -rales, -rhonchi. Symmetrical chest rise. No increase work of breathing. No respiratory distress. Cardiac: soft systolic murmur. RRR, -rg. Radial pulses intact and symmetrical. Abdominal: Mild L CVA tenderness. Mild LLQ abdominal discomfort to palpation. Nondistended, soft. BS present. Extremity: Moving all extremities equally. R foot wrapped in a gauze dressing C/D/I. Results & Data Vital Signs (Past 12 Hours) Vital Signs Temp Pulse Pulse Resp BP BP Pulse Ox 03/29/19 07:31 37.5 C 75 20 137/77 98 03/29/19 00:00 37.4 C 65 20 100/68 95 PG Care Time/CCT Total # of Minutes Spent Total Time Spent with Patient: Total time spent is greater than 50% in coordination of care (as documented) at patient's floor/unit and/or counseling patient: Resident Activity Tracking Resident Involvement: Resident Care Provided Care Provided: Adult Hospital Medicine
--- NOTE | 2019-03-29 10:35 | Pharmacy Report ---
Pharmacy Glycemic Short Note 2 - Date of Service March 29, 2019 - Glycemic Short BSG Results (Last 24 hours): 03/28/19 03/28/19 03/28/19 11:45 17:02 20:27 Glucose POC Glucose 217 H 128 H 255 H 03/29/19 03/29/19 03/29/19 02:15 06:18 08:06 Glucose 166 H POC Glucose 212 H 125 H OUTPATIENT ANTIDIABETIC REGIMEN: * Lantus 40 units AM + 35 units PM * Humalog with meals: 1 unit per ~5 grams CHOs * A1c = 9.1% on 03/28/19 The patient is currently receiving: * Basal Insulin: Lantus 40 units AM + 35 units given yesterday * Correctional Insulin: Novolog Correction per scale ACHS Goal Range: Low 110 mg/dL - High 140 mg/dL Correction Factor: 10 mg/dL/unit * Prandial Insulin: Per carb ratio of 1 unit per 3 grams CHO consumed ASSESSMENT: 03/29: * Pt received 115 units of insulin yesterday: 75 units of basal insulin and 40 units of prandial/correctional insulin. * Pt refused her dinner insulin which caused bedtime BSG to rise to 255. * She had a snack at 0200 AM which was 48 gm of carbs and received 18 units of insulin then. * Plan to increase HS Lantus dose to 40 units to help cover the overnight high BSGs and snack. * Otherwise plan to continue Novolog parameters the same as yesterday. BSG was within goal at dinner (128) with current parameters. 03/28: * Type 2 diabetic admitted for sepsis, pyelonephritis, KHANG and nephrolithiasis * Pt is s/p urgent lithotripsy and stent placement * Pt is known to glycemic control service from prior hospitalization. * Pt has received 88 units of insulin over the past 24hrs with poor control * BSGs ranging 154-236 mg/dl * 65 units of basal insulin * 23 units of prandial/correctional insulin * Reduced basal insulin dosing given yesterday morning --> will increase back to outpatient dosing * May need to tighten CF/CR based on basal insulin dosing of 75 units/day PLAN FOR INPATIENT GLYCEMIC CONTROL: * Hold outpatient oral diabetes medications * Basal insulin: increased PM dose to 40 units * Lantus 40 units SQ QAM + 40 units SQ PM * Bolus insulin * NovoLog per scale ACHS and at 0200 tonight * Goal Range: Low 110 mg/dL - High 140 mg/dL * Correction Factor: 10 mg/dL/unit ACHS; and 12 mg/dL/unit at 0200. * Nutritional / Prandial insulin per carb ratio of 1 unit per 3 grams CHO consumed ACHS; and 1 unit per 4 gm CHO at 0200. PLAN FOR DISCHARGE: * A1c = 9.1% on 03/28/19 * Pt specific goal A1c is ~ 7% * A1c goal should be individualized based on risk of hypo/drug AE, disease duration, life expectancy, relevant co-morbidities, established vascular complication, patient attitude and expected treatment efforts, resources and support system. * A reasonable A1C goal for many non adults is <7% * A1c is greater than or equal to 9% consider dual therapy --> pt is already receiving SQ basal bolus insulin regimen, dosing may need titrated to achieved tighter glycemic control * Currently outpatient basal insulin dosing seems to be appropriate based on inpatient BSG trends * May consider increasing outpatient bolus insulin dosing from 15 units with meals to 20 units with meals to improve A1c * Metformin, if not contraindicated and if tolerated, is the preferred initial pharmacological agent for type 2 diabetes. Metformin has a long-standing evidence base for efficacy and safety, is inexpensive, and may reduce risk of cardiovascular events. * B12 supplementation may be necessary with [facility] metformin use * Consider adding metformin: * Metformin XR 500mg PO daily with evening meal. Continue to titrate metformin dosing upwards as recommended. Dosage increases should be made in increments of 500 mg weekly, up to 2,000 mg/day PO, given in divided doses. Doses above 2000 mg/day may be better tolerated if divided and given 3 times per day with meals. Max: 2,550 mg/day PO, in divided doses In addition to medication changes above, implement: * Support Patient Self-Management * Healthy Lifestyle (diet, exercise, and smoking cessation) * Disease self-management (SMBG) * Prevention of complications (BP, Lipid goals, Immunizations) * Consider outpatient Diabetes Self-Management Education & Support
[2019-03-29] MEDS: DICLOFENAC SOD 1% GEL 100 GM TUBE EXT SCH ×4 (11:56→21:16)
[2019-03-29] MEDS ORDERED: LIDOCAINE HCL 1% 20 ML VIAL ONE (12:09)
[2019-03-29] MEDS ORDERED: SILVER NITR/POTASSIUM NITRATE APPLICATOR EXT SCH (12:15)
[2019-03-29] MEDS: metroNIDAZOLE 500 MG TAB PO SCH ×2 (13:24→21:15)
--- NOTE | 2019-03-29 14:51 | Infectious Disease Progress Nt ---
Date of Service March 29, 2019 Assessment & Plan (1) Taylor pyelonephritis: Patient with acute pyelonephritis, likely non-albicans Taylor, suspect this may be fluconazole resistant. Patient changed to IV caspofungin . Will likely need at least 14 days of IV antibiotics. Await final cultures. Will follow. (2) Pyelonephritis: Subjective Patient seen in follow-up for fungal pyelonephritis. Having diarrhea, but otherwise feeling better with decreasing flank pain. Currently afebrile, hemodynamically stable. C. difficile PCR positive but toxin assay negative. Review of Systems Review of Systems: All systems reviewed & are unremarkable except as noted in HPI & below Physical Exam Constitutional: WD/WN, vitals as above + obese and comfortable Eyes: PERRL, conjunctivae normal, anicteric sclerae ENMT: external ear and nose normal, oropharynx normal Neck: trachea midline, no thyromegaly neck nontender Respiratory: normal respiratory effort, lungs clear to auscultation normal percussion; does not use accessory muscles Cardiovascular: Rate/Rhythm: regular rate and regular rhythm Heart Sounds: normal S1 and normal S2; no gallop, no murmur and no cardiac rub Vessels: normal peripheral pulses; no JVD Gastrointestinal (Abdomen): Inspection/Auscultation: abdomen normal to inspection and normal bowel sounds Percussion/Palpation: + abdomen tender (Left-sided, left flank); no hepatosplenomegaly and no abdominal mass Musculoskeletal: no cyanosis or clubbing, extremities motor strength 5/5 Spine: thoracic spine normal to inspection and lumbar spine normal to inspection; no cervical spinal tenderness Skin: no rashes, warm and dry normal turgor Neurologic: patellar DTR's 2+ bilat, sensation intact no focal motor deficits Psychiatric: A+Ox3, euthymic affect Orientation: cooperative Lymphatic: no cervical or axillary lymphadenopathy no inguinal lymphadenopathy Results & Data Vital Signs (Past 12 Hours) Vital Signs Temp Pulse Resp BP Pulse Ox 03/29/19 07:31 37.5 C 75 20 137/77 98 Laboratory Results Short CBC 03/29/19 Range/Units 06:18 WBC 10.12 (4.8-10.8) K/uL Hgb 9.6 L (12.0-16.0) g/dL Hct 29.9 L (37-47) % Plt Count 341 (130-400) K/uL [facility] 03/29/19 06:18 Sodium 137 Potassium 3.1 L Chloride 104 Carbon Dioxide 26 BUN 18 Creatinine 1.36 H Glucose 166 H Calcium 9.1 Diagnostic Findings Microbiology 03/26/19 12:54 Urine,Kidney Gram Stain - Final 03/26/19 12:54 Urine,Kidney Aerobic and Anaerobic Culture - Preliminary Yeast not Taylor albicans 03/26/19 11:11 Blood Aerobic Blood Culture - Preliminary No growth in Aerobic bottle after 48 hours. 03/26/19 11:11 Blood Anaerobic Blood Culture - Preliminary No growth in Anaerobic bottle after 48 hours. 03/26/19 10:03 Blood Aerobic Blood Culture - Preliminary No growth in Aerobic bottle after 48 hours. 03/26/19 10:03 Blood Anaerobic Blood Culture - Preliminary No growth in Anaerobic bottle after 48 hours. 03/26/19 12:54 Kidney Fungal Smear - Final
[2019-03-29] MEDS ORDERED: INSULIN GLARGINE SOLOSTAR 100 UNITS/ML 3 ML PEN SC SCH (21:00)
[2019-03-29] MEDS: POTASSIUM CHLORIDE 10 MEQ TABCR PO SCH (21:16)
[2019-03-29] MEDS: ACETAMINOPHEN 325 MG TAB PO PRN (21:29)
[2019-03-29] MEDS: POTASSIUM CHLORIDE 20 MEQ in LACTATED RINGER'S 1,000 ML IV SCH (22:23)
[2019-03-30] MEDS: POTASSIUM CHLORIDE 20 MEQ in LACTATED RINGER'S 1,000 ML IV SCH ×2 (00:06→15:03)
[2019-03-30] MEDS: INSULIN ASPART 100 UNITS/ML 3 ML PEN SC SCH ×5 (02:20→22:05)
[2019-03-30 06:22] LABS: Basophils # (auto) 0.02 K/uL (0-0.2); Basophils % (auto) 0.2 %; Eosinophils # (auto) 0.28 K/uL (0-0.5); Eosinophils % (auto) 2.9 %; Hematocrit (blood only) 30.1 % (37-47); Hemoglobin 9.7 g/dL (12.0-16.0); Immature Granulocytes # (auto) 0.04 K/uL (0.00-0.02); Immature Granulocytes % (auto) 0.4 %; Lymphocytes # (auto) 1.83 K/uL (1.2-3.4); Mean Corpuscular Hgb Conc 32.2 g/dL (32-36); Mean Corpuscular Volume 79.2 fL (80-100); Mean Platelet Volume 9.1 fL (7.4-10.4); Monocytes # (auto) 1.07 K/uL (0.11-0.59); Monocytes % (auto) 11.1 %; Neutrophils # (auto) 6.38 K/uL (1.4-6.5); Neutrophils % (auto) 66.4 %; Platelet Count 317 K/uL (130-400); RDW Coefficient of Variation 15.7 % (11.5-14.5); RDW Standard Deviation 45.9 fL (36.4-46.3); White Blood Count 9.62 K/uL (4.8-10.8)
[2019-03-30 07:09] LABS: BUN Creatinine Ratio 17.1 (10-20); Calcium 9.1 mg/dl (8.5-10.1); Creatinine Clr Calc Pharmacy 69.1 ml/min; Est GFR (African American) 60.1; Est GFR (Non-African American) 51.9; Potassium 3.9 mmol/L (3.5-5.1)
[2019-03-30] MEDS: metroNIDAZOLE 500 MG TAB PO SCH ×3 (09:36→22:03)
[2019-03-30] MEDS: VENLAFAXINE HCL XR 150 MG CAPXR PO SCH (09:36)
[2019-03-30] MEDS: LACTOBACILLUS ACIDOPHILUS (FLORANEX) TAB PO SCH ×3 (09:36→16:05)
[2019-03-30] MEDS: ASPIRIN 81 MG ECTAB PO SCH (09:37)
[2019-03-30] MEDS: POTASSIUM CHLORIDE 10 MEQ TABCR PO SCH ×2 (09:37→22:04)
[2019-03-30] MEDS: CARVEDILOL 25 MG TAB PO SCH ×2 (09:37→22:04)
[2019-03-30] MEDS: DICLOFENAC SOD 1% GEL 100 GM TUBE EXT SCH ×4 (09:38→22:05)
[2019-03-30] MEDS: ATORVASTATIN 40 MG TAB PO SCH (09:38)
[2019-03-30] MEDS: INSULIN GLARGINE SOLOSTAR 100 UNITS/ML 3 ML PEN SC SCH ×2 (09:40→22:06)
[2019-03-30] MEDS ORDERED: INSULIN GLARGINE SOLOSTAR 100 UNITS/ML 3 ML PEN SC STA (09:55)
[2019-03-30] MEDS: CASPOFUNGIN 50 MG in SODIUM CHLORIDE 0.9% 250 ML IV SCH ×2 (10:41→12:18)
[2019-03-30] MEDS ORDERED: ALTEPLASE, RECOMBINANT 1 MG/ML 2ML VIAL IV PRN (11:45)
--- NOTE | 2019-03-30 15:35 | Discharge Summary ---
Date of Service March 31, 2019 Admission HPI Per Admitting Provider Patient is a 53-year-old female with past medical history significant for diabetes type 2, osteomyelitis of the right foot, hypertension, previous history of MRSA infection, and diabetic foot ulcer who presented to the ED with complaint of fever, chills, nausea and vomiting and left flank pain for 3 days. Of note patient has a history of previous kidney stones she is status post multiple lithotripsies. She also admits to urinary incontinence and urgency with mild dysuria but denies hematuria. In the ED CT scan of the abdomen and pelvis reviewed obstructing 8 mm calculus of the left distal ureter with mild left hydronephrosis and nonobstructing 6 mm calculus of the left lower kidney. She was given 1 dose of IV daptomycin and Zosyn. Urologist was consulted for emergent lithotripsy with stent placement. Admission Exam Per Admitting Provider Constitutional: WD/WN, vitals as above well developed, well nourished and cooperative; no acute distress Eyes: PERRL, conjunctivae normal, anicteric sclerae ENMT: external ear and nose normal, oropharynx normal Neck: trachea midline, no thyromegaly Respiratory: normal respiratory effort, lungs clear to auscultation Cardiovascular: RRR, no murmur, no edema Chest (Breasts): normal inspection/palpation of breasts Musculoskeletal: right foot with gauze dressing, wound on the plantar mid area with open and serosanguineous drainage, no erythematous Neurologic: PERRL, EOMI, accommodation nl, no face palsy, no dysarthria Psychiatric: A+Ox3, euthymic affect Genitourinary: left CVAT Principal Diagnosis Non-candidal fungal pyelonephritis 2/2 obstructive left renal calculus Discharge Exam General: A&Ox3. No acute distress. Cooperative. HEENT: Atraumatic, normocephalic. Pulm: CTAB A&P. -wheezes, -rales, -rhonchi. Symmetrical chest rise. No increase work of breathing. No respiratory distress. Cardiac: soft systolic murmur. RRR, -rg. Radial pulses intact and symmetrical. Abdominal: Mild left CVA tenderness. No abdominal discomfort to palpation today nondistended, soft. BS present. Extremity: Moving all extremities equally. R foot wrapped in a gauze dressing C/D/I. Left hallux with 80% of medial nail plate removed, no warmth/erythema/discharge. Discharge Data Allergies Allergy/AdvReac Type Severity Reaction Status Date / Time adhesive Allergy Severe blisters Verified 03/26/19 11:51 dalbavancin Allergy Severe RASH ALL Verified 03/26/19 11:51 OVER FACE AND CHEST doxycycline Allergy Severe RASH Verified 03/26/19 11:51 ibuprofen Allergy Severe Renal Unverified 03/26/19 11:51 Failure ketorolac [From Toradol] Allergy Severe Renal Unverified 03/26/19 11:51 Failure Sulfa (Sulfonamide Allergy Severe SULFA Verified 03/26/19 11:51 Antibiotics) DIURETICS LIP AND TONGUE SWELLING tetracycline Allergy Severe RASH Verified 03/26/19 11:51 carvedilol AdvReac Mild lip Verified 03/26/19 11:51 numbness DIURETICS Allergy Unknown unable to Uncoded 03/26/19 11:51 take because of kidneys Consultations 03/26/19 11:19 Consult Urology Stat 03/26/19 11:20 ED Decision to Admit Stat 03/26/19 14:28 Consult Urology Routine 03/28/19 08:24 Consult Infectious Diseases Routine 03/30/19 15:18 Consult [facility] senior front end web developer Routine Procedures Performed Operation Date: 03/26/19 12:00 Actual Procedures p Cystoscopy, Left Retrograde Pyelogram, Left Stent Placement(Left) - Roberto Regalado MD Ordered Studies 03/26/19 [place] retrograde includes kub Routine 03/26/19 09:22 CT abd pelvis wo con Stat 03/30/19 11:44 US point of care ultrasound Routine Hospital Course (1) Pyelonephritis: Corazon is a 53-year-old female with a past medical history of type 2 diabetes mellitus with chronic right foot osteo-and diabetic ulcer, hypertension, past MRSA infection who presented with 3 days of nausea /vomiting/left flank pain and who was admitted for a 6 mm left-sided calculus requiring emergent cystoscopy and stent placement. Sepsis secondary to obstructive uropathy Shows admitted tachycardic, hypertensive, and febrile with a leukocytosis to 23 at an admission. She had a mildly elevated procalcitonin. CT abdomen/pelvis showed renal calculi with hydronephrosis as discussed below. She was e mpirically treated with daptomycin and Zosyn on admission, narrowed to Zosyn, and then converted to caspofungin based on cultures. She did well with gradually improving fever curve and leukocytosis. She did not require any pressors, and her tachycardia improved with IV fluid maintenance and antibiotic treatment. She was afebrile for 24 hours at time of discharge. Left renal calculus with obstructive hydronephrosis On admission CT A/P showed a 6 mm left-sided calculus with hydronephrosis. She underwent emergent left cystoscopy, retrograde pyelogram, and stent placement. Following stent placement large volume of purulent urine was immediately drained and sent for culture. Urine culture showed a non-Taylor yeast which was treated as below. She is able to urinate well, and had gradual improvement of her pain. She was stable with good pain control at time of discharge and her pyelonephritis was treated as below. To do: 1. Follow-up with infectious disease, determine if extension of 14-day course of caspofungin is necessary for her pyelonephritis. 2. Follow-up regarding diabetes control and newly elevated A1c. 3. Reevaluation of her left hallux for any signs of infection or poor healing Pyelonephritis Patient was found to have a septic pyelonephritis secondary to a left-sided calculus. She was initially treated with vancomycin and Zosyn, and narrowed to empiric Zosyn. Following stenting purulent urine was sent for culture. Her cultures came back positive for non-candidal yeast without any bacterial growth or bacteria on Gram stain. Infectious disease was consulted and recommended a minimum 14 days of treatment with caspofungin for resistant non-candidal species. Zosyn was stopped and she showed good clinical improvement on caspofungin. Picc/midline were not able to be placed due to poor access, but a peripheral ultrasound-guided IV was able to be placed for access day of discharge. Home services were coordinated by case management and she was able to receive home infusions of caspofungin through the peripheral IV. She was discharged to complete a 14-day course of antifungal treatment with close follow-up to her PCP and infectious disease. Diarrhea Follow treatment with Zosyn she will developed copious watery diarrhea. Her C. difficile testing was PCR positive but toxin negative. She was observed over 36 hours but continued to clinically worsen despite stopping Zosyn, and empiric treatment with Flagyl was initiated. Vancomycin was avoided due to her history of face and chest rash after taking dalbavancin. Initially plan was to stop f lagyl, but this was continued as her diarrhea returned.. Acute kidney injury Chills found to have an acute kidney injury secondary to obstructive uropathy with creatinine elevated to 1.6 from a previously normal baseline. Following rehydration her creatinine gradually down trended and normalized. Type 2 diabetes mellitus Corazon reports a history of previously well-controlled type 2 diabetes on insulin with an A1c less than 6. Her A1c on admission was found to be 9.1%. This was discussed with the patient at bedside, and diabetic counseling was provided. She identified and recognized dietary changes including increase juice and sugary beverages in the last 3 months that likely led to much poor control and her blood sugars. She reported she was comfortable with being discharged on the same insulin regimen, and knew what dietary changes she could make to bring her A1c back into baseline. She was discharged to resume insulin therapy with follow-up to her PCP for further management. Left hallux injury While ambulating in the room Corazon hit her toe causing the nail plate of the left hallux to detach. On exam about 90% of the nail plate was elevated and nonsalvageable. A resection was performed preserving approximately 20% of the lateral nail plate without complication. There were no signs of deep wound or infection either during procedure at time of discharge. No antibiotics were indicated. 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 Wound care was consulted, and she experienced no exacerbation of her ulcer. Wound was kept wrapped in a dressing and was clean, dry, and intact throughout her admission. There were no signs of cellulitis or spread. Anxiety/depression Prior to admission venlafaxine 150 mg extended release was continued throughout admission. Hypokalemia Patient was found to be hypokalemic during admission in the setting of copious diarrhea. Her potassium normalized with oral repletion and with resolution of her diarrhea. She did not show any cardiac changes during admission. Total Time Total Time Spent Total Time Spent (In Minutes): 32 Discharge Plan Discharge Items Patient Disposition: Home - Home Health Services Reason For Visit: FLANK PAIN/FEVER/NEPHROLITHIASIS Discharge Diagnosis: Nephrolithiasis with pyelonephritis due to non-Taylor yeast Discharge Goals: Improve disease control and Therapeutic intervention Activity: Per 'Additional Instructions' section Non-emergency contact: Primary Care Provider Call non-emergency contact if: you have any medication questions, your symptoms worsen, your pain is not controlled, your pain is worsening, your pain is unusual for you, your pain is concerning for you, you have a fever, your temperature is above 100.5 and your temperature is above 101 Follow-up/Referrals: Sara Aragon MD [Primary Care Provider] - 04/05/19 11:10 am (Please, follow up with Dr. Sara Aragon on MondayApril 05 at 11:10 am. *If you need to change this appointment, call the office at [phone].) Diet: Carb Consistent or DM2 Addtl Provider Instructions: You were seen in the hospital for a left-sided kidney stone which blocked urine flow. A stent was placed to open up the duct near the left stone and you are found to have a kidney infection due to the stone blockage. You have been placed on antibiotics for this infection as noted below. A ultrasound-guided peripheral IV has been placed for you to the antibiotic below. Home services have been arranged for you so that you can receive your antibiotics via this IV after discharge. If you have any questions or concerns regarding this IV, or you notice any warmth, redness, swelling, or leaking at the IV site please contact your primary care physician at the number below. You have been prescribed an antifungal, caspofungin. Please take caspofungin 50 mg daily through the IV as directed for 12 more days. The infectious disease specialist will help decide if you require an extension of your treatment past 12 days is necessary. Kidney infections often take several days/weeks to feel better, but you should steadily improve. You developed diarrhea during your hospital admission. You have been prescribed an antibiotic for C. difficile, flagyl (metronidazole). Please take flagyl 500mg by mouth three times daily for 9 more days to complete a 10 day course. This medication has been sent to the [facility] at [facility]. If you develop worsening diarrhea, fevers, sweats, or worsening abdominal pain please contact your primary care physician or call 911 for transport to the [facility] department if you are concerned. An appointment for follow-up with your primary care provider Dr. Ramos has been made for you on 04/05/2019 at 11:10 AM.Please keep this appointment. If you need to cancel or change this appointment, please call her office at [phone]. An appointment for follow-up is being made for you with the infectious disease specialist, Dr. Mckeon. You should receive a call to confirm this appointment. If you do not receive a call, or need to cancel/change your appointment, please call his office at [phone]. If you develop any new or worsening symptoms, including fever, chills, night sweats, chest pain, chest pressure, difficulty breathing, shortness of breath, rash, throat swelling, headache, lightheadedness, passing out, worsening kidney pain, pain with urination, difficulty urinating, or blood/pus in the urine please contact your primary care doctor at the number above, or call 911 for transport and evaluation in the ED. Prescriptions: New caspofungin 50 mg recon soln 50 mg IV DAILY Qty: 1 RF: 0 metronidazole 500 mg Tablet 500 mg PO TID 9 Days Qty: 27 RF: 0 Continued carvedilol [Coreg] 25 mg tablet 25 mg PO BID RF: 0 cetirizine [Zyrtec] 10 mg tablet 10 mg PO DAILY PRN (Reason: allergy symptoms) RF: 0 diphenhydramine HCl [Benadryl Allergy] 25 mg tablet 50 mg PO DAILY PRN (Reason: allergic reaction) RF: 0 insulin glargine [Lantus Solostar U-100 Insulin] 100 unit/mL (3 mL) insulin pen SQ BID RF: 0 nitroglycerin [Nitrostat] 0.4 mg tablet, sublingual 0.4 mg SL Q5M PRN (Reason: Chest Pain) RF: 0 venlafaxine [Effexor XR] 150 mg capsule,extended release 24hr 300 mg PO HS RF: 0 Humalog U-100 Insulin subcut .SLIDING SCALE RF: 0 ondansetron HCl 4 mg tablet 4 mg PO Q6H PRN (Reason: Nausea) RF: 0 atorvastatin 40 mg Tablet 40 mg PO DAILY RF: 0 aspirin 81 mg Tablet,Delayed Release (Dr/Ec) 81 mg PO DAILY RF: 0 Stand-Alone Forms: [facility] Discharge Orders: Discharge Order (Routine); Ordered 03/31/19 Ordered By: Salas Patel Admission Data Admit Date/Time: 03/26/19 13:28 Attending Provider: Julio César Kay Admit Provider: Susannah Munguia Primary Care Provider: Sara Aragon Other Providers: Roberto Regalado ; Susannah Munguia ; Junior Mckeon Service: Medical Other Interventions: Discharge Summary Assessment (RN) Last Done: 03/31/19 12:57 DC Date/Time DO NOT enter until pt leaves facility: 03/31/19 14:52 Supervising Physician Co-Signing Physician Notes I personally examined the patient and verified all tan points of history and exam, discussed case, and agree with decision making with Dr Patel. Initally patient had felt better and plan was to discharge on Friday 03/30. However, patient began complaining of subjective fevers and diarrhea returned after only a temporary improvement in the AM. Flagyl had been stopped in AM but restarted in the afternoon. On 03/31, patient noted vast improvement. Patient had no new complaints and reported improvement with her diarrhea. Vitals noted, in general she is awake and alert pleasant no distress. HEENT, normocephalic atraumatic mucous membranes moist. Breathing unlabored no accessory muscle use good effort. Skin shows no rashes no pallor or icterus. Neuro shows no focal deficits.. Obstructing kidney stone causing pyelonephritis and sepsisContinue caspofungin - cultures without other growth and she continues to improve overall even off broad abx. will need at least 2wks per ID - Midline ordered and case managemnt set up antifungals for home for once shes stable enough. Continue supportive care. Stone has been stented, appreciate urology assistance. Appreciate ID input. Diarrhea - Cdiff testing suggests carrier state rather than active infection. clinical picture questions infection - OK to continue empiric flagyl given failure to improve with stopping zosyn and adding probiotic Chest painappears to be intercostal spasm. OMT done 03/27, continue voltaren gel toenail tear - since already pulled off ~90% of nail and was no longer viable, on 03/29 removed gently at the bedside and pt tolerated well. (pt requested removal, risks/benefits of doing this outlined and pt preferred removal, risk of infection about the same given the trauma already disrupted the nail). seems to have no significant pain - but if pain were to develop then would move to xrays to exclude phalangeal fracture. right now she has no pain to palpation/vibration and declines xrays - continue to follow clinically as outpatient. Somatic dysfunction rib regionOMT done 03/27 DVT prophylaxisSCDs. dispo - home on IV caspo (already arranged) Resident Activity Tracking Resident Involvement: Resident Care Provided Care Provided: Adult Hospital Medicine
--- NOTE | 2019-03-30 15:47 | Family Medicine Progress Note ---
Date of Service March 30, 2019 Assessment & Plan (1) Taylor pyelonephritis: Corazon is a 53-year-old female with a past medical history of type 2 diabetes mellitus with chronic right foot osteo-and diabetic ulcer, hypertension, past MRSA infection who presented with 3 days of nausea/vomitin g/left flank pain and who was admitted for a 6 mm left-sided calculus requiring emergent cystoscopy and stent placement. Sepsis 2/2 obstructive uropathy, improved Tachycardic, hypertensive, and febrile with leukocytosis to 23 on admission Procalcitonin elevated to 0.58 on admit CTA/P showed renal calculi with hydronephrosis as noted below Empirically treated with daptomycin and Zosyn on admission, narrowed to Zosyn, zosyn d/andrew based on fungal + cultures Left renal calculus with obstructive hydronephrosis CT A/P on admission showed 6 mm left-sided calculus with hydro S/P left cystoscopy, retrograde pyelogram, and stent placement Following stent placement large volume of purulent urine was immediately drained and sent for culture Urine culture shows non-Taylor yeast without bacterial growth at this time - ID consulted. Recommend minimum 14 days caspofungin IV. US-assisted peripheral placed for access. Home caspo set up by case management starting Monday. Nausea/vomiting 2/2 pyelonephritis/[place]/obstructive uropathy, improved Tylenol 650 mg every 6 hours as needed. IV on order if unable to tolerate p.o. no more than 3 g per 24 hours. Zofran, Phenergan as needed Acute kidney injury KHANG 2/2 obstructive uropathy Creatinine on admission elevated to 1.6 from previously normal baseline. Creatinine normalized Avoid nephrotoxins, including NSAIDs - BMP daily Diarrhea - C diff PCR positive, gene negative. Clinically with continued copious liquid diarrhea - Discussed possibility of Zosyn diarrhea with pt. Has continued to have worsening diarrhea with med d/andrew - Initially diarrhea improved, developed worsened diarrhea this afternoon and resumed flagyl 500mg TID. - Vanco avoided given past dalvance reaction with concern for vanco cross reactivity Type 2 diabetes mellitus A1c 9.1% Hyperglycemia in the setting of acute illness Hold [employer] glargine until resuming adequate p.o. Aspart SSI Dose checks AC/at bedtime Chronic diabetic right foot ulcer with necrosis Glycemic control as above Wound care Hypertension [employer] carvedilol 25 mg p.o. twice daily Labetalol IV 5 mg q4h PRN for systolic >180 as needed while/if unable to tolerate Continue aspirin 81 mg daily Anxiety/depression Stable. Continue [employer] venlafaxine 150 mg ER just Hypokalemia - Normalized today DVT prophylaxis: Diet: Diabetic consistent carb Disposition: Ongoing Supervising Physician Co-Signing Physician Notes I personally examined the patient and verified all tan points of history and exam, discussed case, and agree with decision making with Dr Patel. Initally patient had felt better and plan was to discharge However, patient began complaining of subjective fevers and diarrhea returned after improvement in the AM. Flagyl had been stopped in AM but restarted in the afternoon, Vitals noted, in general she is awake and alert pleasant no distress. HEENT, normocephalic atraumatic mucous membranes moist. Breathing unlabored no accessory muscle use good effort. Skin shows no rashes no pallor or icterus. Neuro shows no focal deficits.. Obstructing kidney stone causing pyelonephritis and sepsisContinue caspofungin - cultures without other growth and she continues to improve overall even off broad abx. will need at least 2wks per ID - Midline ordered and case managemnt set up antifungals for home for once shes stable enough. Continue supportive care. Stone has been stented, appreciate urology assistance. Appreciate ID input. Diarrhea - Cdiff testing suggests carrier state rather than active infection. clinical picture questions infection - OK to continue empiric flagyl given failure to improve with stopping zosyn and adding probiotic Chest painappears to be intercostal spasm. OMT done 03/27, continue voltaren gel toenail tear - since already pulled off ~90% of nail and was no longer viable, on 03/29 removed gently at the bedside and pt tolerated well. (pt requested removal, risks/benefits of doing this outlined and pt preferred removal, risk of infection about the same given the trauma already disrupted the nail). seems to have no significant pain - but if pain were to develop then would move to xrays to exclude phalangeal fracture. right now she has no pain to palpation/vibration and declines xrays - continue to follow clinically Somatic dysfunction rib regionOMT done 03/27 DVT prophylaxisSCDs. dispo - home on IV caspo (already arranged) once afebrile x24hr and diarrhea improving (assuming no new problems arise otherwise) Hoping for 03/31 Subjective Corazon reports her diarrhea resolved this morning. She has not had any fevers or chills overnight. Her abdominal pain is improved today. She has no pain in her foot, and has had no pain at the left hallux. She reports she is peeing normally, and is ambulating well. Addendum: Developed recurrent, worsening diarrhea in the afternoon. Initially was anticipating discharge, but given recurrence of her diarrhea will stay overnight with reinitiation of flagyl. She had a peripheral ultrasound guided line placed this morning for caspofungin tx. Review of Systems Review of Systems: Constitutional: No fever overnight, some warm sweats, no chills. Eyes: Denies vision change ENT: Denies ear pain, sore throat, sinus pain Cardiovascular: Denies chest pressure, palpitations, extremity swelling. Respiratory: Denies shortness of breath, cough, sputum production, difficulty breathing Gastrointestinal: Continues to have some nausea, abdominal pain. No diarrhea this AM. Genitourinary: Denies dysuria/polyuria today. Musculoskeletal: Denies focal weakness, muscle aches/pain Integumentary:Denies rash, lesions, bruising Neurological: No headache this morning AddenduM: Midday developed new, watery diarrhea and abdominal pain. Physical Exam Physical Exam: General: A&Ox3. No acute distress. Cooperative. HEENT: Atraumatic, normocephalic. Pulm: CTAB A&P. -wheezes, -rales, -rhonchi. Symmetrical chest rise. No increase work of breathing. No respiratory distress. Cardiac: soft systolic murmur. RRR, -rg. Radial pulses intact and symmetrical. Abdominal: Mild left CVA tenderness. No abdominal discomfort to palpation today nondistended, soft. BS present. Extremity: Moving all extremities equally. R foot wrapped in a gauze dressing C/D/I. Left hallux with 80% of medial nail plate removed, no warmth/erythema/discharge. Results & Data Vital Signs (Past 12 Hours) Vital Signs Temp Pulse Pulse Resp BP BP Pulse Ox 03/30/19 14:20 36.9 C 60 65 20 141/82 H 132/77 97 03/30/19 08:45 36.9 C 60 20 132/77 97 PG Care Time/CCT Total # of Minutes Spent Total Time Spent with Patient: Total time spent is greater than 50% in coordination of care (as documented) at patient's floor/unit and/or counseling patient: Resident Activity Tracking Resident Involvement: Resident Care Provided Care Provided: Adult Hospital Medicine
[2019-03-30] MEDS: ACETAMINOPHEN 325 MG TAB PO PRN (16:03)
[2019-03-30] MEDS: CETIRIZINE HCL 10 MG TABLET PO PRN (16:04)
[2019-03-30] MEDS ORDERED: ONDANSETRON INJ 2 MG/ML 2 ML VIAL IV ONE (17:45)
[2019-03-30] MEDS ORDERED: INSULIN GLARGINE SOLOSTAR 100 UNITS/ML 3 ML PEN SC SCH (21:00)
[2019-03-30] MEDS: PROMETHAZINE HCL 25 MG TAB PO PRN (21:07)
[2019-03-31] MEDS: POTASSIUM CHLORIDE 20 MEQ in LACTATED RINGER'S 1,000 ML IV SCH (04:38)
[2019-03-31 06:07] LABS: Basophils # (auto) 0.03 K/uL (0-0.2); Basophils % (auto) 0.3 %; Eosinophils # (auto) 0.29 K/uL (0-0.5); Hematocrit (blood only) 27.1 % (37-47); Hemoglobin 8.7 g/dL (12.0-16.0); Immature Granulocytes # (auto) 0.07 K/uL (0.00-0.02); Immature Granulocytes % (auto) 0.7 %; Lymphocytes # (auto) 2.38 K/uL (1.2-3.4); Lymphocytes % (auto) 24.9 %; Mean Corpuscular Hgb Conc 32.1 g/dL (32-36); Mean Corpuscular Volume 79.7 fL (80-100); Mean Platelet Volume 8.8 fL (7.4-10.4); Monocytes # (auto) 0.89 K/uL (0.11-0.59); Monocytes % (auto) 9.3 %; Neutrophils # (auto) 5.89 K/uL (1.4-6.5); Neutrophils % (auto) 61.8 %; Platelet Count 385 K/uL (130-400); RDW Coefficient of Variation 15.6 % (11.5-14.5); RDW Standard Deviation 45.8 fL (36.4-46.3); White Blood Count 9.55 K/uL (4.8-10.8)
[2019-03-31 06:30] LABS: BUN Creatinine Ratio 19.2 (10-20); Calcium 9.3 mg/dl (8.5-10.1); Creatinine Clr Calc Pharmacy 77.6 ml/min; Est GFR (African American) 69.2; Est GFR (Non-African American) 59.7; Potassium 4.3 mmol/L (3.5-5.1)
[2019-03-31] MEDS: ONDANSETRON INJ 2 MG/ML 2 ML VIAL IV PRN (06:49)
[2019-03-31] MEDS: CASPOFUNGIN 50 MG in SODIUM CHLORIDE 0.9% 250 ML IV SCH (08:51)
[2019-03-31] MEDS: LACTOBACILLUS ACIDOPHILUS (FLORANEX) TAB PO SCH ×2 (08:54→12:32)
[2019-03-31] MEDS: ASPIRIN 81 MG ECTAB PO SCH (08:54)
[2019-03-31] MEDS: CARVEDILOL 25 MG TAB PO SCH (08:54)
[2019-03-31] MEDS: POTASSIUM CHLORIDE 10 MEQ TABCR PO SCH (08:55)
[2019-03-31] MEDS: VENLAFAXINE HCL XR 150 MG CAPXR PO SCH (08:55)
[2019-03-31] MEDS: DICLOFENAC SOD 1% GEL 100 GM TUBE EXT SCH ×2 (08:56→12:32)
[2019-03-31] MEDS: ATORVASTATIN 40 MG TAB PO SCH (08:56)
[2019-03-31] MEDS: INSULIN GLARGINE SOLOSTAR 100 UNITS/ML 3 ML PEN SC SCH (08:56)
[2019-03-31] MEDS: INSULIN ASPART 100 UNITS/ML 3 ML PEN SC SCH ×2 (08:57→12:31)
[2019-03-31] MEDS: metroNIDAZOLE 500 MG TAB PO SCH ×2 (08:58→14:10)
== END 2019-03-31 14:52 | disposition home health service (06) | DRG 854 ==
LOC: ED 08:57 → ASU 11:50 → SUATTDRO 13:28 → 2N 13:28 → 4E 03-29 03:59
DX: Z79.4 Long term (current) use of insulin; A41.9 Sepsis, unspecified organism; E11.618 Type 2 diabetes mellitus with other diabetic arthropathy; I25.2 Old myocardial infarction; Z79.82 Long term (current) use of aspirin; Z88.2 Allergy status to sulfonamides; G47.33 Obstructive sleep apnea (adult) (pediatric); E87.1 Hypo-osmolality and hyponatremia; I10 Essential (primary) hypertension; N17.9 Acute kidney failure, unspecified; N13.2 Hydronephrosis with renal and ureteral calculous obstruction; F41.8 Other specified anxiety disorders; E66.01 Morbid (severe) obesity due to excess calories; Z68.41 Body mass index [BMI] 40.0-44.9, adult; B95.62 Methicillin resistant Staphylococcus aureus infection as the cause of diseases classified elsewhere; Z88.8 Allergy status to other drugs, medicaments and biological substances; Z90.49 Acquired absence of other specified parts of digestive tract

== ENCOUNTER 2021-07-30 16:14 | Observation (INO) ==
[2021-07-30] MEDS ORDERED: ASPIRIN CHEW 324 MG PO STA (16:31)
--- NOTE | 2021-07-30 17:21 | XRay Report ---
XR chest 1V portable CLINICAL HISTORY: Atypical chest pain TECHNIQUE: Single frontal radiograph of the chest was obtained. Comparison: Comparison is made to chest one view 03/26/2019 FINDINGS: No lines and tubes are seen. The cardiomediastinal silhouette is normal. The lungs are clear. No evid ence of pleural effusion or pneumothorax. IMPRESSION: No acute chest disease. ACT 112: Negative or not required by law. Electronically signed by: Marvin High M.D. 07/30/2021 5:19 PM
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
[2021-07-30 17:48] LABS: Basophils # (auto) 0.03 K/uL (0-0.2); Basophils % (auto) 0.3 %; Eosinophils # (auto) 0.31 K/uL (0-0.5); Eosinophils % (auto) 2.8 %; Hematocrit (blood only) 37.1 % (37-47); Hemoglobin 12.7 g/dL (12.0-16.0); Immature Granulocytes # (auto) 0.05 K/uL (0.00-0.02); Immature Granulocytes % (auto) 0.4 %; Lymphocytes # (auto) 3.06 K/uL (1.2-3.4); Lymphocytes % (auto) 27.4 %; Mean Corpuscular Hemoglobin 28.9 pg (25-34); Mean Corpuscular Hgb Conc 34.2 g/dL (32-36); Mean Corpuscular Volume 84.5 fL (80-100); Mean Platelet Volume 8.6 fL (7.4-10.4); Monocytes # (auto) 0.64 K/uL (0.11-0.59); Monocytes % (auto) 5.7 %; Neutrophils # (auto) 7.08 K/uL (1.4-6.5); Neutrophils % (auto) 63.4 %; Platelet Count 466 K/uL (130-400); RDW Coefficient of Variation 14.1 % (11.5-14.5); RDW Standard Deviation 43.6 fL (36.4-46.3); Red Blood Count 4.39 M/uL (4.2-5.4); White Blood Count 11.17 K/uL (4.8-10.8)
[2021-07-30 18:13] LABS: Partial Thromboplastin Ratio 0.9; Prothrombin Time 9.7 Seconds (9.0-12.0)
[2021-07-30 18:14] LABS: Alanine Aminotransferase 22 U/L (12-78); Albumin Level 3.4 gm/dl (3.4-5.0); Aspartate Aminotransferase 14 U/L (15-37); BUN Creatinine Ratio 25.1 (10-20); Blood Urea Nitrogen 30 mg/dl (7-18); Calcium 9.8 mg/dl (8.5-10.1); Carbon Dioxide 31 mmol/L (21-32); Chloride 99 mmol/L (98-107); Est GFR (African American) 57.1 ml/min; Est GFR (Non-African American) 49.3 ml/min; Glucose 147 mg/dl (70-99); Lipase 318 U/L (73-393); Sodium 135 mmol/L (136-145)
[2021-07-30 18:20] LABS: Albumin Globulin Ratio 0.8 (0.9-2); Alkaline Phosphatase 141 U/L (45-117); Bilirubin,Total 0.5 mg/dl (0.2-1); Globulin 4.2 gm/dl (2.5-4.0); Total Protein 7.6 gm/dl (6.4-8.2); Troponin I 0.015 ng/ml (0-0.045)
[2021-07-30] MEDS ORDERED: BUMETANIDE 1 MG in SYRINGE 0 ML IV STA (19:05)
[2021-07-30] MEDS ORDERED: NITROGLYCERIN 2% OINTMENT 30GM TUBE EXT STA (19:05)
[2021-07-30 19:06] LABS: Appearance Urine Clear (Clear); Bacteria Urine Automated Negative (Negative); Bilirubin Urine Negative (Negative); Blood Urine Trace (Negative); Color Urine Yellow; Epithelial Cell Urine Auto >30 /lpf (0-5); Glucose Urine UA 2+ (Negative); Ketones Urine Negative (Negative); Leukocyte Esterase Urine Trace (Negative); Nitrite Urine Negative (Negative); Protein Urine 3+ (Negative); RBC Urine Automated 0-4 /hpf (0-4); Specific Gravity Urine 1.014 (1.000-1.030); Urobilinogen Urine Negative (Negative)
[2021-07-30] MEDS ORDERED: TORSEMIDE 10 MG TAB PO STA (19:13)
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
[2021-07-30] MEDS ORDERED: POLYETHYLENE (MIRALAX) 17 GM PACK PO PRN (23:11)
[2021-07-30] MEDS ORDERED: PHARMACY GLYCEMIC MGMT CONSULT PRN (23:11)
[2021-07-30] MEDS ORDERED: ACETAMINOPHEN 325 MG TAB PO PRN (23:11)
[2021-07-30] MEDS ORDERED: NITROGLYCERIN 2% OINTMENT 30GM TUBE EXT SCH (23:11)
[2021-07-30] MEDS ORDERED: LEVOTHYROXINE SODIUM 25 MCG TABLET PO SCH (23:11)
[2021-07-30] MEDS ORDERED: ONDANSETRON INJ 2 MG/ML 2 ML VIAL IV PRN (23:11)
[2021-07-30] MEDS ORDERED: ONDANSETRON 4 MG OD TAB PO PRN (23:30)
[2021-07-31] MEDS ORDERED: INSULIN GLARGINE SOLOSTAR 100 UNITS/ML 3 ML PEN SQ SCH ×4 (01:00→21:00)
[2021-07-31] MEDS: AMOXICILLIN/CLAVULANATE 875 MG TAB PO SCH ×2 (01:15→09:41)
[2021-07-31] MEDS: LOSARTAN POTASSIUM 50 MG TAB PO SCH ×2 (01:16→09:43)
[2021-07-31] MEDS: carvediloL 25 MG TAB PO SCH ×2 (01:17→09:43)
[2021-07-31] MEDS: SODIUM CHLORIDE 0.65% NA SOLN 45 ML (OCEAN) SCH ×2 (01:20→09:47)
[2021-07-31] MEDS: FLUTICASONE PROPIONATE NA SPR 16 GM BTL SCH ×2 (01:20→09:41)
[2021-07-31] MEDS: INSULIN ASPART 100 UNITS/ML 3 ML PEN SC SCH ×2 (02:58→06:02)
[2021-07-31] MEDS: NITROGLYCERIN 2% OINTMENT 30GM TUBE EXT SCH ×3 (02:58→13:47)
[2021-07-31 08:00] LABS: Basophils # (auto) 0.02 K/uL (0-0.2); Basophils % (auto) 0.2 %; Eosinophils # (auto) 0.24 K/uL (0-0.5); Eosinophils % (auto) 2.3 %; Hematocrit (blood only) 35.1 % (37-47); Hemoglobin 11.7 g/dL (12.0-16.0); Immature Granulocytes # (auto) 0.03 K/uL (0.00-0.02); Immature Granulocytes % (auto) 0.3 %; Lymphocytes # (auto) 2.39 K/uL (1.2-3.4); Lymphocytes % (auto) 22.8 %; Mean Corpuscular Hemoglobin 28.7 pg (25-34); Mean Corpuscular Hgb Conc 33.3 g/dL (32-36); Mean Corpuscular Volume 86.2 fL (80-100); Mean Platelet Volume 8.6 fL (7.4-10.4); Monocytes # (auto) 0.47 K/uL (0.11-0.59); Monocytes % (auto) 4.5 %; Neutrophils # (auto) 7.32 K/uL (1.4-6.5); Neutrophils % (auto) 69.9 %; Platelet Count 393 K/uL (130-400); RDW Coefficient of Variation 14.4 % (11.5-14.5); RDW Standard Deviation 44.9 fL (36.4-46.3); Red Blood Count 4.07 M/uL (4.2-5.4); White Blood Count 10.47 K/uL (4.8-10.8)
[2021-07-31 08:31] LABS: BUN Creatinine Ratio 24.4 (10-20); Calcium 9.1 mg/dl (8.5-10.1); Est GFR (African American) 48.3 ml/min; Est GFR (Non-African American) 41.7 ml/min; Potassium 4.2 mmol/L (3.5-5.1)
[2021-07-31 08:41] LABS: Thyroid Stimulating Hormone 2.06 uIu/ml (0.300-4.500)
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
[2021-07-31] MEDS ORDERED: TORSEMIDE 20 MG TAB PO SCH (09:00)
[2021-07-31] MEDS ORDERED: VENLAFAXINE HCL XR 150 MG CAPXR PO SCH (09:00)
[2021-07-31] MEDS ORDERED: ASPIRIN 81 MG ECTAB PO SCH (09:00)
[2021-07-31] MEDS ORDERED: CETIRIZINE HCL 10 MG TABLET PO SCH (09:00)
[2021-07-31 10:04] LABS: Estimated Average Glucose 275 mg/dl; Hemoglobin A1C 11.2 % (4.5-5.6)
--- NOTE | 2021-07-31 10:51 | Pharmacy Report ---
Pharmacy Glycemic Short Note 2 - Date of Service July 31, 2021 - Glycemic Short BSG Results (Last 24 hours): 07/30/21 07/30/21 07/31/21 17:31 23:58 02:49 Glucose 147 H POC Glucose 130 H 123 H 07/31/21 07/31/21 05:59 07:49 Glucose 157 H POC Glucose 127 H OUTPATIENT ANTIDIABETIC REGIMEN: * Lantus 70 units SQ BID * Humalog SSI - up to 70 units/day divided with meals * A1c = 10% on 11/20/20; repeat pending for 07/31/21 * Pt follows with [facility] (Dr Rush) ASSESSMENT: * 56yo T2DM female known to pharmacy from previous admissions/glycemic consults * Pt takes high doses of insulin as an outpatient by typically requires about half of the dosing while inpatient (~ 30-40 units of Lantus SQ BID while on full diet). * Pt currently NPO - will give 1/2 of typical inpatient dosing and titrate based on BSG trends. PLAN FOR INPATIENT GLYCEMIC CONTROL: * Hold outpatient oral diabetes medications * Basal insulin * Lantus 20 units SQ BID - pt received 35 units SQ last evening, therefore, will just give 10 units this morning and then start 20 units BID this evening. * Bolus insulin * NovoLog per scale ACHS or Q6hrs while NPO * Goal Range: Low 110 mg/dL - High 140 mg/dL * Correction Factor: 20 mg/dL/unit * Nutritional / Prandial insulin per carb ratio of 1 unit per 6 grams CHO consumed PLAN FOR DISCHARGE: * A1c pending - will defer outpatient regimen adjustment to outpatient providers ([facility]) Pt last seen 06/21/21.
[2021-07-31] MEDS ORDERED: INSULIN ASPART 100 UNITS/ML 3 ML PEN SC SCH (12:15)
[2021-07-31] MEDS ORDERED: INSULIN GLARGINE SOLOSTAR 100 UNITS/ML 3 ML PEN SQ ONE (12:15)
--- NOTE | 2021-07-31 12:26 | Discharge Summary ---
Date of Service July 31, 2021 Admission HPI Per Admitting Provider Corazon Shea is a 56 year old female who presents to the ER on the advice of her corrections sergeant (Jaylan Dacosta) due to chest heaviness and EKG changes. Chest heaviness started last night, no radiation, severity 2/10, mildly better today down to 1/10. Center of her chest. She called her corrections sergeant and went in for an urgent appointment with EKG. This was compared to prior EKG taken three days ago and showed new ST depressions in lateral leads therefore was advised to go to the ER for ongoing workup. This is on a background of green sinus drainage that has been going on for the last week with associated fatigue. No fever or chills. She was prescribed Augmentin on Monday for this but started taking it Monday after being seen by Stephanie Richards yesterday who agreed with treating with Augmentin for 14 day in a ddition to saline and flonase nasal sprays. Her chest heaviness started after taking the Augmentin so she wasn't sure if it was a reaction to this. She reports being told she has had a prior DC however this was based on EKG changes prior to colonoscopy concerning DC in 2012 and possible echocardiograms changes. Never had cardiac catheterization. She was diagnosed with congestive heart failure in Sep 2018 after her foot operation and she follows with [facility] corrections sergeant for this. She reports not taking her torsemide this morning and recently her weight and leg swelling has been increasing over the last week. In the ER EKG changes were again seen with ST depressions in anterolateral leads. She was prescribed an aspirin. Given ongoing chest heaviness I prescibed 1 inch nitro paste which relieved the chest heaviness but was still feeling like her heart was working hard. She was referred to medicine for admission and ongoing management of her chest pain. Principal Diagnosis Chest pain Discharge Data Allergies Allergy/AdvReac Type Severity Reaction Status Date / Time adhesive Allergy Severe blisters Verified 07/30/21 18:24 ceftazidime [From Fortaz] Allergy Severe renal Verified 07/30/21 18:24 failure dalbavancin Allergy Severe RASH ALL Verified 07/30/21 18:24 OVER FACE AND CHEST doxycycline Allergy Severe RASH Verified 07/30/21 18:24 Sulfa (Sulfonamide Allergy Severe w/ Verified 07/30/21 18:24 Antibiotics) diuretics - due to kidneys tetracycline Allergy Severe RASH Verified 07/30/21 18:24 vancomycin Allergy Severe renal Verified 07/30/21 18:24 failure sitagliptin [From Januvia] Allergy Intermediate muscle Verified 07/30/21 18:24 spasms hydrochlorothiazide Allergy Unknown Rash Verified 07/30/21 18:24 ibuprofen AdvReac Severe Renal Verified 07/30/21 18:24 Failure ketorolac [From Toradol] AdvReac Severe Renal Verified 07/30/21 18:24 Failure carvedilol AdvReac Mild lip Verified 07/30/21 18:24 numbness DIURETICS AdvReac Severe unable to Uncoded 07/30/21 18:24 take because of kidneys Consultations 07/30/21 18:43 ED Decision to Admit Stat 07/30/21 23:11 Consult Cardiology Routine Hospital Course (1) Chest pain, rule out acute myocardial infarction: ST depressions in anterior leads. Negative troponin therefore not NSTEMI since symptoms ongoing for > 12 hours prior to this. No need to trend troponins. However possible unstable angina and will treat as such with 1 inch nitro paste. ASA 324mg PO given in ER. Continue 81mg PO daily TTE Risk reduction with lipid panel and HbA1C with AM Labs Consult cardiology (sent in by cardiology [place]) - will defer stress testing to cardiology but will make NPO after midnight in anticipation of this 2D echo was essentially normal,cardiology recommended medical management (2) Diabetes mellitus type 2, uncontrolled, with complications: HbA1C 10.0 in November, repeat with AM labs Consult pharmacy for tight glycemic control in setting of possible cardiac chest pain (3) Acute sinusitis: Saline and Flonase nasal sprays (use saline first followed by flonase) Continue Augmentin, follow up with ENT as outpatient (4) Hypertension: Continue torsemide (give her missed AM dose now) Continue losartan 100mg PO BID, carvedilol 25mg PO BID (5) Open wound of right foot: Unstageable pressure ulcer Wound swab No surrounding cellulitis to suggest need for onoging antibiotics currently Wound nurse consult Follow up with wound as outpatient (6) Proteinuria: Appears to be longstanding at least since 2018. Recommend nephrology follow up on discharge (7) Hyperlipidemia: Lipid panel in AM. On no statins. Prior LDL 136. If CAD suspected consider starting statin. (8) Depression: Continue venlafaxine 300mg PO daily (9) Cardiac murmur: Known. No significant valvular disease on prior echos (10) Hypothyroidism: TSH with AM labs Continue levothyroxine 25 mcg PO daily VTE Prophylaxis - chemical deferred, if stay prolonged recommend prescribing lovenox Diet - Low Na, Heart healthy, T2DM Disposition - observation status to med/tele Total Time Total Time Spent Total Time Spent (In Minutes): 35 min Discharge Plan Discharge Items Patient Disposition: Home - Self-Care Reason For Visit: CHEST PAIN RULE OUT DC Discharge Diagnosis: Chest pain Activity: Resume your previous activity Non-emergency contact: Primary Care Provider Call non-emergency contact if: you have any medication questions and your symptoms worsen Follow-up/Referrals: Sara Aragon MD [Primary Care Provider] - Diet: Regular Addtl Attending Provider Instructions: Please make appointment to follow up with your ENT doctor and also your corrections sergeant. Follow up with wound clinic for your foot wound Pending Studies at Discharge: No Stand-Alone Forms: My evocatal, Smoking Cessation Medications and DC Order Prescriptions: Continued aspirin 325 mg tablet 650 mg PO DAILY PRN (Reason: fever or pain) RF: 0 ondansetron HCl [Zofran] 4 mg tablet 4 mg PO TID PRN (Reason: Nausea) RF: 0 levothyroxine [Synthroid] 25 mcg tablet 25 mcg PO HS RF: 0 torsemide 20 mg tablet 20 mg PO DAILY RF: 0 venlafaxine [Effexor XR] 150 mg capsule,extended release 24hr 300 mg PO DAILY RF: 0 insulin lispro [Humalog U-100 Insulin] 100 unit/mL solution 70 unit SQ DAILY Qty: 30 RF: 5 (DME) OneTouch Verio test strips Strip See Rx Instructions .ROUTE .MEDSUPPLY Qty: 10 RF: 0 (DME) lancets [OneTouch Delica Lancets] 30 gauge misc See Rx Instructions .ROUTE .MEDSUPPLY Qty: 100 RF: 0 Lantus U-100 Insulin 100 unit/mL solution 70 unit SQ BID RF: 0 carvedilol 25 mg Tablet 25 mg PO BID RF: 0 losartan 50 mg tablet 100 mg PO BID RF: 0 amoxicillin-pot clavulanate 875-125 mg tablet 1 tab PO BID RF: 0 Discharge Orders: Discharge Order (Routine); Ordered 07/31/21 Ordered By: Elisa Mayo Admission Data Admit Date/Time: 07/30/21 19:16 Attending Provider: Marvin Whaley Admit Provider: Ervin Guadarrama Primary Care Provider: Sara Aragon Other Providers: Ervin Guadarrama ; Alberto Saldivar Coding Level of Care Code D/C DAY MANAGEMENT >30 MINS Diagnoses Chest pain, rule out acute myocardial infarction R07.9 Diabetes mellitus type 2, uncontrolled, with complications E11.8; E11.65 Acute sinusitis J01.90 Hypertension I10 Hypertension type: essential hypertension Open wound of right foot S91.301A Proteinuria R80.9 Hyperlipidemia E78.2 Hyperlipidemia type: mixed hyperlipidemia Depression F32.9 Cardiac murmur R01.1 Hypothyroidism E03.9
--- NOTE | 2021-08-01 06:34 | Electrocardiogram Report ---
Test Reason : Blood Pressure : / mmHG Vent. Rate : 084 BPM Atrial Rate : 084 BPM P-R Int : 146 ms QRS Dur : 094 ms QT Int : 356 ms P-R-T Axes : 053 007 119 degrees QTc Int : 420 ms Normal sinus rhythm Possible Septal infarct Abnormal ECG When compared with ECG of 30-MAR-2019 17:31, ST now depressed in Lateral leads T wave inversion now evident in Anterolateral leads Confirmed by Cosme Chaudhary ([id number]) on 08/01/2021 6:34:04 AM Referred By: Jaylan Dacosta Confirmed By:Cosme Chaudhary
--- NOTE | 2021-08-01 07:11 | Electrocardiogram Report ---
Test Reason : Blood Pressure : / mmHG Vent. Rate : 075 BPM Atrial Rate : 075 BPM P-R Int : 160 ms QRS Dur : 096 ms QT Int : 422 ms P-R-T Axes : 040 002 119 degrees QTc Int : 471 ms Normal sinus rhythm Prolonged QT Abnormal ECG When compared with ECG of 30-JUL-2021 16:22, QT has lengthened Confirmed by Cosme Chaudhary ([id number]) on 08/01/2021 7:10:33 AM Referred By: Jaylan Dacosta Confirmed By:Cosme Chaudhary
== END 2021-07-31 15:40 | disposition home or self-care (01) ==
LOC: 2S 16:14 → ED 16:14 → SUATTDRO 19:16 → 2S 22:13

== ENCOUNTER 2021-12-15 13:39 | Inpatient (IN) ==
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
--- NOTE | 2021-12-15 15:22 | XRay Report ---
XR chest 1V portable CLINICAL HISTORY: SOB. COMPARISON STUDY: 07/30/2021 TECHNIQUE: 1 view of the chest FINDINGS: Single frontal view of the chest demonstrates the cardiomediastinal silhouette to be within normal li mits. There is a decreased inspiratory effort with elevation of the hemidiaphragms and crowding of th e bronchovascular markings at the lung bases and centrally. The lungs are clear of alveolar opacities . There is no evidence for pleural effusion. There is no evidence for vascular congestion. There is n o acute osseous pathology. IMPRESSION: 1. . There is a decreased inspiratory effort with otherwise no acute chest disease. ACT 112: Negative or not required by law. Electronically signed by: Sharath Chery M.D. 12/15/2021 3:21 PM
[2021-12-15 15:34] LABS: Basophils # (auto) 0.02 K/uL (0-0.2); Basophils % (auto) 0.2 %; Eosinophils % (auto) 0.9 %; Hematocrit (blood only) 31.9 % (37-47); Hemoglobin 10.2 g/dL (12.0-16.0); Immature Granulocytes # (auto) 0.04 K/uL (0.00-0.02); Immature Granulocytes % (auto) 0.4 %; Lymphocytes # (auto) 3.12 K/uL (1.2-3.4); Lymphocytes % (auto) 27.5 %; Mean Corpuscular Hemoglobin 27.3 pg (25-34); Mean Corpuscular Volume 85.3 fL (80-100); Mean Platelet Volume 8.6 fL (7.4-10.4); Monocytes # (auto) 0.68 K/uL (0.11-0.59); Neutrophils # (auto) 7.37 K/uL (1.4-6.5); Platelet Count 379 K/uL (130-400); RDW Coefficient of Variation 15.3 % (11.5-14.5); RDW Standard Deviation 47.2 fL (36.4-46.3); Red Blood Count 3.74 M/uL (4.2-5.4); White Blood Count 11.33 K/uL (4.8-10.8)
[2021-12-15 15:55] LABS: INR 1.1 (0.9-1.1); Partial Thromboplastin Ratio 0.9; Partial Thromboplastin Time 25.5 Seconds (21.0-31.0); Prothrombin Time 11.7 Seconds (9.0-12.0)
[2021-12-15 15:56] LABS: Alanine Aminotransferase 34 U/L (7-52); Albumin Globulin Ratio 1.4 (0.9-2); Albumin Level 3.6 gm/dl (3.4-5.0); Alkaline Phosphatase 122 U/L (34-104); Anion Gap 12 (3-11); Aspartate Aminotransferase 41 U/L (13-39); BUN Creatinine Ratio 40.3 (10-20); Bilirubin,Total 0.6 mg/dl (0.2-1.0); Blood Urea Nitrogen 64 mg/dl (6-23); Calcium 8.8 mg/dl (8.5-10.1); Carbon Dioxide 23 mmol/L (21-32); Chloride 103 mmol/L (98-107); Est GFR (African American) 41.1 ml/min; Est GFR (Non-African American) 35.4 ml/min; Globulin 2.5 gm/dl (2.5-4.0); Glucose 177 mg/dl (70-99(Fasting)); Magnesium 2.1 mg/dl (1.7-2.4); Potassium 3.5 mmol/L (3.5-5.1); Sodium 138 mmol/L (136-145); Total Protein 6.1 gm/dl (6.0-8.3)
[2021-12-15 16:01] LABS: Troponin I 1.05 ng/ml (0-0.04)
[2021-12-15] MEDS ORDERED: FUROSEMIDE 40 MG/4 ML VIAL IV ONE (16:09)
[2021-12-15] MEDS ORDERED: Heparin IV Adult Wt-Based Standard WITH Bolus Protocol IV STA (16:09)
[2021-12-15] MEDS ORDERED: HEPARIN SOD (PORCINE) 1000 UNIT/ML IV ONE (16:24)
--- NOTE | 2021-12-15 16:24 | CT Scan Report ---
HEAD CT NONCONTRAST CT DOSE: 1035.81 mGycm HISTORY: Fall TECHNIQUE: Multiaxial CT images of the head were performed without the use of intravenous contrast. A utomated exposure control was utilized for this study. A dose lowering technique was utilized adheri ng to the principles of ALARA. Comparison: Temporal bone CT 12/25/2020. Findings: Motion artifact. Postoperative changes within the left mastoid air cells with a few opacifi ed left mastoid air cells, this remains unchanged. The right mastoid air cells are clear. The paranas al sinuses are also clear. The calvarium and skull base are intact. The ventricles and sulci are with in normal limits. There is no mass, hematoma, midline shift, or acute infarct. Impression: Motion artifact. No definite acute intracranial abnormality. ACT 112: Negative or not required by law. Electronically signed by: Ej Fisher M.D. 12/15/2021 4:22 PM
--- NOTE | 2021-12-15 16:25 | CT Scan Report ---
CT SCAN OF THE FACIAL BONES WITHOUT IV CONTRAST CLINICAL HISTORY: Fall. COMPARISON STUDY: Temporal bone CT dated 08/03/2017. TECHNIQUE: High-resolution CT scan of the facial bones is performed. Images are reviewed in the axia l, sagittal, and coronal planes. IV contrast was not administered for this examination. A dose lower ing technique was utilized adhering to the principles of ALARA. CT DOSE: 580.05 mGycm FINDINGS: The skeletal structures are well mineralized. There is no evidence of facial bone fracture. The bony orbits are intact and the orbital contents are within normal limits noting bilateral ocular lens implants. The zygomatic arches, nasal bones, and pterygoid plates are preserved. The maxilla an d mandible are intact. Degenerative change is noted in the temporomandibular joints. There are no lay ering blood products within the paranasal sinuses. There is trace mucosal thickening within the maxil patience antra. The remaining paranasal sinuses are clear. There is evidence of previous left mastoid jada hilda and the left mastoid effusion. The right mastoid air cells are well pneumatized. The visualized calvarium and upper cervical spine are maintained. Partially imaged brain parenchyma is within normal limits. IMPRESSION: There is no evidence of facial bone fracture. ACT 112: Negative or not required by law. Electronically signed by: Neri Gould M.D. 12/15/2021 4:24 PM
[2021-12-15] MEDS ORDERED: HEPARIN SODIUM/DEXTROSE 25,000 UNITS/500 ML BAG IV SCH (16:30)
[2021-12-15] MEDS ORDERED: ASPIRIN CHEW 324 MG PO STA (16:34)
[2021-12-15] MEDS ORDERED: TORSEMIDE 10 MG TAB PO ONE (16:49)
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
[2021-12-15 17:29] LABS: Influenza A virus by PCR Negative (Neg); Influenza B virus by PCR Negative (Neg); RSV by PCR Negative (Neg); SARS CoV2 RNA(COVID-19) InHosp NEGATIVE (Negative)
[2021-12-15] MEDS ORDERED: BUMETANIDE 2 MG in SYRINGE 0 ML IV ONE (19:26)
--- NOTE | 2021-12-15 21:15 | Electrocardiogram Report ---
Test Reason : Blood Pressure : / mmHG Vent. Rate : 074 BPM Atrial Rate : 074 BPM P-R Int : 164 ms QRS Dur : 100 ms QT Int : 432 ms P-R-T Axes : 038 -22 171 degrees QTc Int : 479 ms Normal sinus rhythm Low voltage QRS Poor R wave progression, consider anterior IA vs. lead placement vs. LVH T wave abnormality, consider lateral ischemia Abnormal ECG When compared with ECG of 31-JUL-2021 05:02, QRS voltage has decreased Borderline criteria for Anterior infarct are now Present Nonspecific T wave abnormality now evident in Inferior leads Confirmed by Cosme Chaudhary ([id number]) on 12/15/2021 9:15:13 PM Referred By: REFERRED SELF Confirmed By:Cosme Chaudhary
[2021-12-15] MEDS ORDERED: NITROGLYCERIN SL 0.4 MG/TAB TAB SL PRN (21:39)
[2021-12-15] MEDS ORDERED: CARBOHYDRATES FOR HYPOGLYCEMIA PO PRN (21:39)
[2021-12-15] MEDS ORDERED: GLUCOSE 10 TABS/TUBE PO PRN (21:39)
[2021-12-15] MEDS ORDERED: ONDANSETRON INJ 2 MG/ML 2 ML VIAL IV PRN (21:39)
[2021-12-15] MEDS ORDERED: GLUCAGON FOR INJ 1 MG VIAL SQ PRN (21:39)
[2021-12-15] MEDS ORDERED: GLUCOSE 40% GEL 15 GM TUBE PO PRN (21:39)
[2021-12-15] MEDS ORDERED: DEXTROSE 50% 50 ML SYRINGE IV PRN (21:39)
[2021-12-15] MEDS ORDERED: ACETAMINOPHEN 325 MG TAB PO PRN (21:39)
[2021-12-15] MEDS ORDERED: MoRPHine SULFATE 2 MG/ML CARP IV PRN (21:39)
[2021-12-15] MEDS ORDERED: LANTUS PER UNIT CHARGE SQ SCH (21:39)
[2021-12-15] MEDS ORDERED: FLUARIX QUADRIVALENT 0.5 ML SYR IM ONE (22:04)
[2021-12-15] MEDS: carvediloL 25 MG TAB PO SCH (22:59)
[2021-12-15] MEDS: ROSUVASTATIN CALCIUM 20 MG TAB PO SCH (22:59)
[2021-12-15] MEDS: INSULIN ASPART PER UNIT SC SCH (23:12)
[2021-12-15 23:56] LABS: Partial Thromboplastin Ratio 3.5
[2021-12-16 07:29] LABS: Basophils # (auto) 0.02 K/uL (0-0.2); Basophils % (auto) 0.2 %; Eosinophils # (auto) 0.14 K/uL (0-0.5); Eosinophils % (auto) 1.7 %; Hematocrit (blood only) 32.6 % (37-47); Hemoglobin 10.2 g/dL (12.0-16.0); Immature Granulocytes # (auto) 0.02 K/uL (0.00-0.02); Immature Granulocytes % (auto) 0.2 %; Lymphocytes # (auto) 2.93 K/uL (1.2-3.4); Mean Corpuscular Hemoglobin 27.1 pg (25-34); Mean Corpuscular Hgb Conc 31.3 g/dL (32-36); Mean Corpuscular Volume 86.7 fL (80-100); Mean Platelet Volume 8.5 fL (7.4-10.4); Monocytes # (auto) 0.71 K/uL (0.11-0.59); Monocytes % (auto) 8.5 %; Neutrophils # (auto) 4.55 K/uL (1.4-6.5); Neutrophils % (auto) 54.4 %; Platelet Count 317 K/uL (130-400); RDW Coefficient of Variation 15.4 % (11.5-14.5); RDW Standard Deviation 48.7 fL (36.4-46.3); Red Blood Count 3.76 M/uL (4.2-5.4); White Blood Count 8.37 K/uL (4.8-10.8)
[2021-12-16 07:41] LABS: Partial Thromboplastin Ratio 1.5; Partial Thromboplastin Time 40.2 Seconds (21.0-31.0)
[2021-12-16 07:44] LABS: BUN Creatinine Ratio 40.4 (10-20); Calcium 8.7 mg/dl (8.5-10.1); Creatinine Clr Calc Pharmacy 54.5 ml/min; Est GFR (African American) 40.4 ml/min; Est GFR (Non-African American) 34.9 ml/min; Magnesium 2.2 mg/dl (1.7-2.4); Potassium 3.3 mmol/L (3.5-5.1)
[2021-12-16 07:50] LABS: Troponin I 0.88 ng/ml (0-0.04)
[2021-12-16] MEDS: ASPIRIN 81 MG ECTAB PO SCH (08:01)
[2021-12-16] MEDS: carvediloL 25 MG TAB PO SCH ×2 (08:01→21:21)
[2021-12-16] MEDS: CETIRIZINE HCL 10 MG TABLET PO SCH (08:01)
[2021-12-16] MEDS: INSULIN ASPART PER UNIT SC SCH ×6 (08:06→20:21)
[2021-12-16] MEDS: INSULIN GLARGINE SOLOSTAR 100 UNITS/ML 3 ML PEN SC SCH ×2 (08:06→21:18)
[2021-12-16 08:51] LABS: Estimated Average Glucose 235 mg/dl; Hemoglobin A1C 9.8 % (4.5-5.6)
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
[2021-12-16] MEDS ORDERED: INSULIN GLARGINE SOLOSTAR 100 UNITS/ML 3 ML PEN SC SCH (09:00)
[2021-12-16] MEDS ORDERED: VENLAFAXINE HCL XR 150 MG CAPXR PO SCH (09:00)
[2021-12-16] MEDS ORDERED: TORSEMIDE 10 MG TAB PO SCH (09:00)
--- NOTE | 2021-12-16 09:10 | Hospitalist Progress Note ---
Date of Service December 16, 2021 Assessment & Plan (1) Elevated troponin: Plan: This patient is a 56-year-old female with history of morbid obesity, T2DM (A1c 9.8) with neuropathy/Charcot right foot/chronic RLE ulcer, HFpEF (EF 60-65% in 08/08), pulmonary hypertension, BRYNN on CPAP, presumed CAD, HTN, HLD, CKDIII and anemia of chronic kidney disease who was admitted to [facility] on 12/15 for LE edema, found to have elevated Troponin. Elevated Troponin; Presumed CAD; Hypotension Troponin peaked at 1.05 and downtrending x12 hours. No chest pain but EKG with mild ST/T abnormality in lateral leads. TTE with new inferior/posterior wall motion abnormalities --> suspect demand ischemia due to hypotension, in context of increasing Torsemide dosing over last several weeks. - Cardiology consulted - appreciate recs - recommend diagnostic cardiac cath, but ideally when kidney function improves - note: patient has declined cardiac cath at this time - continue Heparin gtt - continue Aspirin, Carvedilol 25mg PO BID, Rosuvastatin 40mg PO QHS - hold losartan for hypotension - will give Albumin 25g x1 now to assist with hypotension and KHANG (see below) Lower Extremity Edema On exam patient appears largely euvolemic, LCTAB, and CXR is clear. Although BNP is elevated at 1141 there is no prior comparison. Suspect that progressive LE edema is more likely due to chronic dietary non-compliance (in regards to salt, sugar and fluids) as well as morbid obesity. - Cardiology consulted as stated above - s/p Lasix total 100mg IV, Bumex 2mg IV, Torsemide 20mg PO - will hold on further diuresis as patient is mildly hypotensive and appears largely euvolemic - strict I/Os - follow volume status closely Weight Gain ~11kg weight gain over last 3-4 months. Although patient reports orthopnea, CXR is clear as stated above and TTE stable. Suspect dietary noncompliance as stated above. - trend with daily weights Morbid Obesity; BRYNN With likely OHS as well, especially given pulmonary HTN per TTE. Likely is contributing to patient's report of dyspnea - CPAP HS Syncope One episode several nights ago, likely due to hypotension in context of above. - fall precautions KHANG on CKDIII Cr 1.61, Cr ~1.2 - 1.5 over last several months but 0.9-1 as of early 2020. Suspect pre-renal injury due to recent fluid restriction and increased diuretic dosing. - hold further diuresis as stated above - held Losartan as stated above - Albumin x1 as stated above - avoid nephrotoxins - trend BMP in AM Hypokalemia K 3.3 - repleted. - trend in AM Chronic Medical Conditions Right charcot foot with chronic ulcer: no cellulitis. continue wound care Left foot pressure ulcer: no cellulitis. continue wound care T2DM: A1c 9.8 on 12/16. Continue SSI + basal insulin while here. Requires med optimization and education. Mor Hypothyroidism: TSH 3.4, no meds since 09/07. HTN: continue Carvedilol, hold Losartan - as stated above HLD: continue statin as stated above Depression/Anxiety: continue home Venlafaxine FEN/GI: heart-healthy/low-sodium diet DVT Prophylaxis: Heparin gtt Code Status: DNR/DNI Disposition: PCU/tele (2) Lower extremity edema: (3) Chronic heart failure with preserved ejection fraction (HFpEF): (4) Syncope: (5) Diabetes mellitus type 2, uncontrolled, with complications: (6) Gastroparesis due to DM: (7) Diabetic ulcer of right foot associated with type 2 diabetes mellitus, with fat layer exposed: (8) Diabetic peripheral neuropathy associated with type 2 diabetes mellitus: (9) Obesity, Class III, BMI 40-49.9 (morbid obesity): (10) Hypertension: (11) Hyperlipidemia: (12) Depression: (13) Anxiety: Admission and Anticipated Discharge Date Admission Date: December 15, 2021 Supervising Physician Co-Signing Physician Notes I personally examined the patient and verified all tan points of history and exam, discussed case, and agree with decision making with Dr Carnes. Legs swollen. Diuretics were not helping. No pulmonary edema. Extensive discussions on venous stasis, diagnosing what is going on with her, pathophysiology. She expressed good understanding. Her friendwho is a recently retired ICU nursewas also at the bedside and expressed good understanding as well. Vitals noted, in general she is awake and alert pleasant no distress. HEENT normocephalic atraumatic mucous membranes moist. Breathing unlabored no accessory muscle use good effort. Skin shows no rashes no pallor or icterus. Bilateral lower extremities about 4+ edema fairly tense. Right lower extremity also dressed due to wound Edemaseems to be entirely venous stasis. Compression as possible, movement as possible, low sodium. Diuretics obviously not helping. With low blood pressure and bump in creatinine, discussed fluids versus other meanswe agreed a trial of a one-time dose of albumin to follow for response would be the most reasonable (fluid being the second most reasonable, but the risk of it spilling out and worsening her venous stasis edema was more than either the patient or myself was willing to accept) Elevated troponinprobably watershed ischemia superimposed on coronary diseaseshe does show new wall motion abnormalitiesfor diagnostic cath once possible (factors limiting this right now are her creatinineanticipate improvement by holding diuretics and giving albumin, other limitation is her orthopneawhich does not seem to be pulmonary edema at all, but rather the weight of her abdomen pressing up on her lungs when she lays flat) AKIlikely diuretic/fluid volume inducedholding diuretics, see above, leg compression and elevation would hopefully move some of the third spaced fluid back into her vasculature, also dose of albumin x1 as above Otherwise as above discussed exercise, lifestyle, etc. Subjective Patient reports worsening LE edema, SOB and increased abdominal girth, with concern for abdominal edema, over last several months, with further worsening over last 2 weeks. She denies recent infection; no fever/chills, cough, N/V, diarrhea, rash. However she is unsure how well she is fluid-restricting her diet, and she is unsure how much salt is in certain foods. Reports that her symptoms have been worsening despite increasing daily dose of Torsemide to 60- 80mg daily. Denies chest pain. Currently denies fever/chills, chest pain, palpitations, N/V, abdominal pain, diarrhea, rash. Review of Systems Review of Systems: All systems reviewed & are unremarkable except as noted in HPI & below Physical Exam Physical Exam: General: A&Ox3. NAD. Cooperative. HEENT: Atraumatic, normocephalic. Pulm: CTAB A&P. -wheezes, -rales, -rhonchi. Symmetrical chest rise. No increase work of breathing. No respiratory distress. Cardiac: RRR, -mrg. Radial pulses intact and symmetrical. 1+ pitting edema to knees bilaterally. No JVD. No hepatojugular reflux. Abdominal: soft, non-tender, non-distended, BS x 4 Feet: right foot with dressing/boot c/d/i without surrounding erythema, left foot with dressing over lateral ankle/heel Results & Data Results & Data ([facility]) Vital Signs (Past 12 Hours) Vital Signs Temp Pulse Pulse Resp BP Pulse Ox 12/16/21 07:57 36.7 C 67 19 114/70 100 12/16/21 03:23 36.6 C 63 18 93/61 L 98 12/16/21 00:30 58 L 20 98 12/15/21 23:25 36.8 C 67 18 104/65 99 12/15/21 23:15 64 12/15/21 21:39 36.9 C 68 18 101/62 99 Resident Activity Tracking Resident Involvement: Resident Care Provided Care Provided: Adult [facility] Medicine (1) Hyperlipidemia Hyperlipidemia type: mixed hyperlipidemia Qualified Code(s): E78.2 - Mixed hyperlipidemia (2) Diabetic ulcer of right foot associated with type 2 diabetes mellitus, with fat layer exposed Diabetic foot ulcer location: midfoot Qualified Code(s): E11.621 - Type 2 diabetes mellitus with foot ulcer; L97.412 - Non-pressure chronic ulcer of right heel and midfoot with fat layer exposed (3) Hypertension Hypertension type: essential hypertension Qualified Code(s): I10 - Essential (primary) hypertension
[2021-12-16] MEDS: POTASSIUM CHLORIDE CRTAB 20 MEQ TABCR PO STA ×2 (09:16→11:17)
[2021-12-16] MEDS ORDERED: BUMETANIDE 2 MG in SYRINGE 0 ML IV ONE (09:30)
[2021-12-16] MEDS ORDERED: FUROSEMIDE 40 MG/4 ML VIAL IV ONE (12:47)
[2021-12-16] MEDS ORDERED: Heparin IV Adult Wt-Based Standard *NO* Bolus Protocol IV SCH (12:58)
[2021-12-16] MEDS ORDERED: POTASSIUM CHLORIDE CRTAB 20 MEQ TABCR PO STA (13:17)
[2021-12-16] MEDS ORDERED: POTASSIUM CHLORIDE / WTR 10 MEQ/100 ML PLCT IV SCH (13:30)
[2021-12-16] MEDS: HEPARIN SODIUM/DEXTROSE 25,000 UNITS/500 ML BAG IV SCH (14:00)
[2021-12-16] MEDS ORDERED: ENOXAPARIN INJ 40 MG/0.4 ML SYR SQ SCH (15:00)
[2021-12-16] MEDS ORDERED: ALBUMIN 25% 100 mL 25 GM/100 ML VIAL IV ONE (17:45)
--- NOTE | 2021-12-16 19:09 | Billing Data ---
Date of Service December 16, 2021 Coding Level of Care Code 90963 Subseq Hosp Care Lvl 3
[2021-12-16] MEDS: ROSUVASTATIN CALCIUM 20 MG TAB PO SCH (20:13)
[2021-12-16 20:40] LABS: Partial Thromboplastin Ratio 1.6; Partial Thromboplastin Time 43.7 Seconds (21.0-31.0)
--- NOTE | 2021-12-16 21:49 | Electrocardiogram Report ---
Test Reason : Blood Pressure : / mmHG Vent. Rate : 063 BPM Atrial Rate : 063 BPM P-R Int : 162 ms QRS Dur : 094 ms QT Int : 432 ms P-R-T Axes : 035 -17 159 degrees QTc Int : 442 ms Normal sinus rhythm Low voltage QRS Poor R wave progression, consider anterior VT vs. lead placement vs. LVH Abnormal ECG When compared with ECG of 15-DEC-2021 15:24, No significant change was found Confirmed by Cosme Chaudhary ([id number]) on 12/16/2021 9:48:59 PM Referred By: REFERRED SELF Confirmed By:Cosme Chaudhary
[2021-12-17 03:23] LABS: Hematocrit (blood only) 31.9 % (37-47); Mean Corpuscular Hemoglobin 27.2 pg (25-34); Mean Corpuscular Hgb Conc 31.3 g/dL (32-36); Mean Corpuscular Volume 86.9 fL (80-100); Mean Platelet Volume 8.6 fL (7.4-10.4); Platelet Count 310 K/uL (130-400); RDW Coefficient of Variation 15.3 % (11.5-14.5); Red Blood Count 3.67 M/uL (4.2-5.4); White Blood Count 10.09 K/uL (4.8-10.8)
[2021-12-17 03:50] LABS: Calcium 8.7 mg/dl (8.5-10.1); Est GFR (African American) 35.6 ml/min; Est GFR (Non-African American) 30.7 ml/min; Magnesium 2.3 mg/dl (1.7-2.4); Partial Thromboplastin Ratio 2.4; Potassium 3.5 mmol/L (3.5-5.1)
--- NOTE | 2021-12-17 07:08 | Hospitalist Progress Note ---
Date of Service December 17, 2021 Assessment & Plan (1) Elevated troponin: Plan: This patient is a 56-year-old female with history of morbid obesity, T2DM (A1c 9.8) with neuropathy/Charcot right foot/chronic RLE ulcer, HFpEF (EF 60-65% in 08/08), pulmonary hypertension, BRYNN on CPAP, presumed CAD, HTN, HLD, CKDIII and anemia of chronic kidney disease who was admitted to [facility] on 12/15 for LE edema, found to have elevated Troponin. Elevated Troponin; Presumed CAD; Hypotension Troponin peaked at 1.05 and downtrending x12 hours. No chest pain but EKG with mild ST/T abnormality in lateral leads. TTE with new inferior/posterior wall motion abnormalities --> suspect demand ischemia due to hypotension, in context of increasing Torsemide dosing over last several weeks. - Cardiology consulted - appreciate recs - recommend diagnostic cardiac cath, but ideally when kidney function improves - continue Heparin gtt - continue Aspirin, Carvedilol 25mg PO BID, Rosuvastatin 40mg PO QHS - hold losartan for hypotension KHANG on CKDIII Cr 1.61 --> 1.79 today, Cr ~1.2 - 1.5 over last several months but 0.9-1 as of early 2020. Suspect pre-renal injury due to fluid restriction and increased diuretic dosing. - started mIVFs with LR @100cc/hr x1L; will likely require more IV hydration afterwards - hold further diuresis - held Losartan as stated above - avoid nephrotoxins - trend BMP in AM Lower Extremity Edema On exam patient appears largely euvolemic, LCTAB, and CXR is clear. Although BNP is elevated at 1141 there is no prior comparison. Suspect that progressive LE edema is more likely due worsening venous insufficiency, in setting of chronic dietary non-compliance (in regards to salt, sugar and fluids) as well as morbid obesity. - Cardiology consulted as stated above - s/p Lasix total 100mg IV, Bumex 2mg IV, Torsemide 20mg PO - will hold on further diuresis as heart failure extremely unlikely to be driving this - strict I/Os - follow volume status closely Hypoglycemia; T2DM Suspect repeat hypoglycemic episodes are largely due to home regimen consisting mostly of basal insulin, with [id number] bolus. - A1c 9.8 on 12/16 - decreased Lantus to 50 units SQ BID - continue SSI - consulted sales force administrator to assist with basal/bolus administration, proper use of glucose checks, and dietary modification - will require further outpatient education after discharge - thankfully, PCP can help arrange this given that patient is seen at [facility] - may require modification of home med regimen - defer to PCP Weight Gain ~11kg weight gain over last 3-4 months. Although patient reports orthopnea, CXR is clear as stated above and TTE stable. Suspect dietary noncompliance as stated above. - trend with daily weights - dietary modification education being provided Morbid Obesity; BRYNN With likely OHS as well, especially given pulmonary HTN per TTE. Likely is contributing to patient's report of dyspnea/orthopnea. - CPAP HS Syncope One episode several nights ago, likely due to hypotension and hypoglycemia. - fall precautions - T2DM management as stated above Chronic Medical Conditions Right charcot foot with chronic ulcer: no cellulitis. continue wound care Left foot pressure ulcer: no cellulitis. continue wound care Hypothyroidism: TSH 3.4, no meds since 09/07. HTN: continue Carvedilol, hold Losartan - as stated above HLD: continue statin as stated above Depression/Anxiety: continue home Venlafaxine FEN/GI: heart-healthy/low-sodium diet DVT Prophylaxis: Heparin gtt Code Status: DNR/DNI Disposition: PCU/tele (2) Lower extremity edema: (3) Chronic heart failure with preserved ejection fraction (HFpEF): (4) Syncope: (5) Diabetes mellitus type 2, uncontrolled, with complications: (6) Gastroparesis due to DM: (7) Diabetic ulcer of right foot associated with type 2 diabetes mellitus, with fat layer exposed: (8) Diabetic peripheral neuropathy associated with type 2 diabetes mellitus: (9) Obesity, Class III, BMI 40-49.9 (morbid obesity): (10) Hypertension: (11) Hyperlipidemia: (12) Depression: (13) Anxiety: Admission and Anticipated Discharge Date Admission Date: December 15, 2021 Supervising Physician Co-Signing Physician Notes I personally examined the patient and verified all tan points of history and exam, discussed case, and agree with decision making with Dr Carnes Feeling okay. Was able to lay down a little. No shortness of breath. Leg swelling is about the same. Fluids started and she feels like she can already feel it accumulating in her abdomen. Hypoglycemic episode earlier today. Vitals noted, in general she is awake and alert pleasant no distress. HEENT normocephalic atraumatic mucous membranes moist. Breathing unlabored no accessory muscle use good effort. Skin shows no rashes no pallor or icterus. Bilateral lower extremities about 4+ edema fairly tense. Right lower extremity also dressed due to wound Edemaseems to be entirely venous stasis. Compression as possible (in discussion with wound nurserequesting arterial Dopplers prior to compression) movement as possible, low sodium. Diuretics obviously not helping. With low blood pressure and bump in creatinine, and no improvement with albumin1 L LR. Elevated troponinprobably watershed ischemia superimposed on coronary diseaseshe does show new wall motion abnormalitiesfor diagnostic cath once possible (factors limiting this right now are her creatinineanticipate improvement by holding diuretics and giving albumin, other limitation is her orthopneawhich does not seem to be pulmonary edema at all, but rather the weight of her abdomen pressing up on her lungs when she lays flat), fluids for now AKIlikely diuretic/fluid volume inducedholding diuretics, see above, leg compression and elevation would hopefully move some of the third spaced fluid back into her vasculature, 1 L LR as above Type 2 diabeteseducated on insulin management, pharmacokinetics, home management, etc. Otherwise as above discussed exercise, lifestyle, etc. Subjective Patient became hypoglycemic this morning, which improved after dextrose and juice. She reports persistent LE edema. Reports stable orthopnea which improves with CPAP - has not been hypoxic. Denies fever/chills, chest pain, N/V, abdominal pain, diarrhea, rash. Review of Systems Review of Systems: All systems reviewed & are unremarkable except as noted in HPI & below Physical Exam Physical Exam: General: A&Ox3. NAD. Cooperative. HEENT: Atraumatic, normocephalic. Pulm: CTAB A&P. -wheezes, -rales, -rhonchi. Symmetrical chest rise. No increase work of breathing. No respiratory distress. Cardiac: RRR, -mrg. Radial pulses intact and symmetrical. 1+ pitting edema to knees bilaterally. No JVD. No hepatojugular reflux. Abdominal: soft, non-tender, non-distended, BS x 4 Feet: right foot with dressing/boot c/d/i without surrounding erythema, left foot with dressing over lateral ankle/heel Results & Data Results & Data ([facility]) Vital Signs (Past 12 Hours) Vital Signs Temp Pulse Pulse Resp BP Pulse Ox 12/17/21 04:30 36.7 C 62 16 115/73 93 12/16/21 23:33 59 L 12/16/21 23:05 36.8 C 60 20 122/69 95 12/16/21 22:45 67 23 97 12/16/21 19:26 37.0 C 63 18 110/63 98 Resident Activity Tracking Resident Involvement: Resident Care Provided Care Provided: Adult Hospital Medicine (1) Hyperlipidemia Hyperlipidemia type: mixed hyperlipidemia Qualified Code(s): E78.2 - Mixed hyperlipidemia (2) Diabetic ulcer of right foot associated with type 2 diabetes mellitus, with fat layer exposed Diabetic foot ulcer location: midfoot Qualified Code(s): E11.621 - Type 2 diabetes mellitus with foot ulcer; L97.412 - Non-pressure chronic ulcer of right heel and midfoot with fat layer exposed (3) Hypertension Hypertension type: essential hypertension Qualified Code(s): I10 - Essential (primary) hypertension
[2021-12-17] MEDS: HEPARIN SODIUM/DEXTROSE 25,000 UNITS/500 ML BAG IV SCH ×2 (07:47→23:04)
[2021-12-17] MEDS: INSULIN ASPART PER UNIT SC SCH ×4 (08:14→21:11)
[2021-12-17] MEDS ORDERED: Nursing to Pharmacy Communication SCH (08:30)
[2021-12-17] MEDS: CETIRIZINE HCL 10 MG TABLET PO SCH (08:42)
[2021-12-17] MEDS: ASPIRIN 81 MG ECTAB PO SCH (08:42)
[2021-12-17] MEDS: carvediloL 25 MG TAB PO SCH ×2 (08:43→21:06)
[2021-12-17] MEDS ORDERED: INSULIN GLARGINE SOLOSTAR 100 UNITS/ML 3 ML PEN SC STA ×2 (08:51→21:38)
[2021-12-17] MEDS ORDERED: LACTATED RINGER'S 1,000 ML IV SCH (09:00)
[2021-12-17] MEDS: INSULIN GLARGINE SOLOSTAR 100 UNITS/ML 3 ML PEN SC SCH ×2 (10:05→21:15)
--- NOTE | 2021-12-17 11:34 | Cardiology Progress Note ---
Date of Service December 17, 2021 Assessment & Plan (1) Non-ST elevation (NSTEMI) myocardial infarction: (2) Syncope: (3) Congestive heart failure (CHF): (4) Chronic ischemic heart disease: (5) Lower extremity edema: Plan: 56-year-old female admitted secondary to heart failure with preserved ejection fraction, NSTEMI, and syncopal episode possibly attributed to hypoglycemia. Her echocardiogram demonstrates a new posterior wall motion abnormality suggesting ischemic heart disease. Her ejection fraction remains preserved. We discussed the risk versus benefit of cardiac catheterization. With creatinine trending upward today procedure cannot be performed. Recommend holding diuretic therapy with repeat basic metabolic panel in a.m. She has mild pedal edema without rales or significant weight gain. I suspect she is euvolemic to intravascular depleted currently. Continue other cardiovascular medications including intravenous heparin as previously ordered. All questions answered to patient satisfaction. Admission and Anticipated Discharge Date Admission Date: December 15, 2021 Subjective Patient seen and examined the bedside. Reports low blood sugar this morning. Telemetry reveals sinus bradycardia in the 50s. Fluid balance is +290 cc. She received 1 dose of IV Lasix yesterday. Creatinine has trended upward towards 1.8. Abdominal bloating and mild lower extremity edema unchanged. Diuretics titrated prior to hospitalization as well. Denies chest pain or dyspnea at rest. No palpitations or lightheadedness. Review of Systems Review of Systems: All systems reviewed & are unremarkable except as noted in Subjective Physical Exam Constitutional: well developed and + morbidly obese; no acute distress Respiratory: no respiratory distress, no labored breathing and no retractions Auscultation: + diminished lung sounds; no crackles and no rales Cardiovascular: Rate/Rhythm: regular rate and regular rhythm Heart Sounds: normal S1 and normal S2; no murmur Vessels: + JVD Extremities: + edema (1+ bilateral pedal and ankle edema) Gastrointestinal (Abdomen): Inspection/Auscultation: normal bowel sounds; abdomen not distended Percussion/Palpation: abdomen soft; abdomen nontender, no guarding and abdomen not rigid Neurologic: CN's II-XI intact bilaterally and moves all extremities; no focal motor deficits Motor/Sensory: no tremor Psychiatric: A+Ox3, euthymic affect Results & Data ([facility]) Vital Signs (Past 12 Hours) Vital Signs Temp Pulse Pulse Resp BP Pulse Ox 12/17/21 08:14 36.5 C 18 129/75 98 12/17/21 08:00 54 L 12/17/21 04:30 36.7 C 62 16 115/73 93 12/16/21 23:33 59 L
--- NOTE | 2021-12-17 14:45 | Electrocardiogram Report ---
Test Reason : Blood Pressure : / mmHG Vent. Rate : 052 BPM Atrial Rate : 052 BPM P-R Int : 166 ms QRS Dur : 102 ms QT Int : 456 ms P-R-T Axes : 047 012 190 degrees QTc Int : 424 ms Sinus bradycardia Low voltage QRS Poor R wave progression, consider anterior HI vs. lead placement vs. LVH Abnormal ECG When compared with ECG of 16-DEC-2021 05:00, No significant change Confirmed by Kang Arambula ([id number]) on 12/17/2021 2:44:35 PM Referred By: REFERRED SELF Confirmed By:Kang Arambula
--- NOTE | 2021-12-17 17:56 | Billing Data ---
Date of Service December 17, 2021 Coding Level of Care Code 73754 Subseq Hosp Care Lvl 3
--- NOTE | 2021-12-17 20:50 | Ultrasound Report ---
BILATERAL LOWER EXTREMITY ARTERIAL DOPPLER ULTRASOUND CLINICAL HISTORY: vascular disease. COMPARISON STUDY: Right lower extremity arterial Doppler ultrasound January 01, 2018. TECHNIQUE: Patient deferred ankle to brachial indices. Grayscale, color and duplex Doppler sonography of the arterial systems of the lower extremity was performed. FINDINGS: Triphasic biphasic flow throughout the right lower extremity were is noted. No elevated jordon ocities were identified. Minimal atherosclerotic plaque within the right lower extremity was noted. T here is triphasic flow within left common femoral artery. There is biphasic flow within the left supe rficial femoral and popliteal arteries. No elevated velocities were identified. There is biphasic jenise w within the left posterior tibial and anterior tibial arteries. There is biphasic flow within the le ft peroneal artery. Monophasic flow was noted within the left dorsalis pedis. Vessels are patent. IMPRESSION: 1. Mild atherosclerotic plaque within the lower extremities. No evidence for a hemodynamically signif icant stenosis. 2. No vessel occlusion identified. Predominantly biphasic and triphasic flow within the lower extremi ties. 3. No evidence for inflow disease. ACT 112: Negative or not required by law. Electronically signed by: Lenin Aguiar M.D. 12/17/2021 8:48 PM
[2021-12-17] MEDS: ROSUVASTATIN CALCIUM 20 MG TAB PO SCH (21:02)
[2021-12-17] MEDS ORDERED: CETIRIZINE HCL 10 MG TABLET PO STA (21:36)
[2021-12-18 05:56] LABS: Hematocrit (blood only) 32.3 % (37-47); Hemoglobin 10.2 g/dL (12.0-16.0); Mean Corpuscular Hemoglobin 27.6 pg (25-34); Mean Corpuscular Hgb Conc 31.6 g/dL (32-36); Mean Corpuscular Volume 87.3 fL (80-100); Mean Platelet Volume 8.6 fL (7.4-10.4); Platelet Count 337 K/uL (130-400); RDW Coefficient of Variation 15.4 % (11.5-14.5); RDW Standard Deviation 48.7 fL (36.4-46.3); White Blood Count 11.55 K/uL (4.8-10.8)
[2021-12-18 06:18] LABS: BUN Creatinine Ratio 44.2 (10-20); Calcium 9.1 mg/dl (8.5-10.1); Creatinine Clr Calc Pharmacy 63.6 ml/min; Est GFR (African American) 48.7 ml/min; Magnesium 2.2 mg/dl (1.7-2.4); Potassium 3.7 mmol/L (3.5-5.1)
--- NOTE | 2021-12-18 07:19 | Hospitalist Progress Note ---
Date of Service December 18, 2021 Assessment & Plan (1) Elevated troponin: Plan: 56yo female with history of morbid obesity, T2DM (A1c 9.8) with neuropathy/Charcot right foot/chronic RLE ulcer, HFpEF (EF 55-60% in 12/16/21), pulmonary hypertension, BRYNN (on CPAP), presumed CAD, HTN, HLD, CKD3, and anemia of chronic kidney disease who was admitted to [facility] on 12/15 for worsening LE edema, then found with an elevated troponin. Elevated troponin, presumed CAD, hypotension Troponin 1.05 on admission, started trending downward on hospital day two (12/16) No chest pain on admission, though EKG showed mild ST abnormalities in lateral leads TTE (12/16) with new inferior/posterior wall motion abnormalities Suspect demand ischemia in the setting of hypotension secondary to increasing torsemide doses over the prior few weeks Cardiology consulted; plan for diagnostic catheterization once patient's KHANG has improved (will likely happen on 12/20) Continue heparin gtt Continue ASA, carvedilol, rosuvastatin Losartan held due to hypotension KHANG on CKD3 Creatinine peaked at 1.79, likely secondary to overdiuresis and fluid restriction 12/17: received 1L bolus of LR 12/18: creatinine improved to 1.38; discontinued IVF, continue PO intake Trend daily BMP, avoid nephrotoxins, avoid diuresis if possible, continue to hold losartan Lower extremity edema On admission, patient appeared euvolemic, lungs CTABL, CXR without evidence of pulmonary congestion BNP on admission elevated to 1141, though there is no prior for comparison Suspect LE edema secondary to venous stasis rather than CHF; hold further diuresis Continue strict I/O's, reassess volume status frequently Cardiology consulted as above Hypoglycemia, IDDM2 A1c 9.8 (12/16/21) Patient's home insulin regimen is mostly basal with [id number] bolus Suspect hypoglycemic episodes are secondary to significantly reduced carb intake while hospitalized Patient's home lantus (60u bid) decreased on 12/17 to 50u in AM and 20u in PM; however, patient still had another hypoglycemic episode on 12/18 Will reduce basal insulin to 20u bid (however, patient received 60u in the morning of 12/18; will hold PM dose on 12/18, then on 12/19 will restart at 20u bid) Continue ISS Will require close PCP follow-up for optimization of home regimen and continued education Weight gain ~11kg weight gain over last 3-4 months; suspect secondary to dietary indiscretion; low suspicion for CHF as above Patient does note orthopnea, though this is likely secondary to OHS Trend daily weight Continue daily dietary and lifestyle counseling Morbid obesity; BRYNN Obesity/BRYNN likely the etiology of patient's orthopnea Continue CPAP qhs Syncope Patient with one syncopal episode prior to admission, likely due to hypotension resultant from overdiuresis +/- hypoglycemia Fall precautions T2DM management as above Chronic conditions: Right charcot foot with chronic ulcer: continue wound care Left foot pressure ulcer: continue wound care Hypothyroidism: TSH 3.4 (12/16/21), no intervention indicated HTN: continue home carvedilol, holding losartan as noted above HLD: continue home statin MDD/JEANMARIE: continue home venlafaxine FEN: heart-healthy, carb-consistent diet, no IVF at this time Code status: DNR/DNI DVT ppx: heparin gtt Held home meds: torsemide Isolation: none Consults: cardiology PT/OT: ordered Case management: following Dispo: PCU telemetry (2) Lower extremity edema: (3) Chronic heart failure with preserved ejection fraction (HFpEF): (4) Syncope: (5) Diabetes mellitus type 2, uncontrolled, with complications: (6) Gastroparesis due to DM: (7) Diabetic ulcer of right foot associated with type 2 diabetes mellitus, with fat layer exposed: (8) Diabetic peripheral neuropathy associated with type 2 diabetes mellitus: (9) Obesity, Class III, BMI 40-49.9 (morbid obesity): (10) Hypertension: (11) Hyperlipidemia: (12) Depression: (13) Anxiety: Admission and Anticipated Discharge Date Admission Date: December 15, 2021 Supervising Physician Co-Signing Physician Notes I personally examined the patient and verified all tan points of history and exam, discussed case, and agree with decision making with Dr Mendoza Sitting in a wheelchair with her legs propped up. Notes that she had a low sugar again this morning. Notes that she feels fluid retention from the 1 L of LR given yesterday. No shortness of breath. Vitals noted, in general she is awake and alert pleasant no distress. HEENT normocephalic atraumatic mucous membranes moist. Breathing unlabored no accessory muscle use good effort. Skin shows no rashes no pallor or icterus. Legs propped up, right lower extremity dressed. No erythema. Edemaseems to be entirely venous stasis. Compression as possible (wound consulted) movement as possible, low sodium. Diuretics obviously not helping (have been stopped), ongoing education Elevated troponinprobably watershed ischemia superimposed on coronary diseaseshe does show new wall motion abnormalitiesfor diagnostic cath once possible (creatinine improved, so I anticipate this probably happening at the beginning of the week) AKIlikely diuretic/fluid volume inducedholding diuretics, see above, leg compression and elevation would hopefully move some of the third spaced fluid back into her vasculature, 1 L LR has helped a good bit Type 2 diabetesongoing education on the influence of lifestyle on this (today the main teaching point was that in spite of drastically reducing her insulin dosing, her sugars continue to bottom outnow on markedly lower insulin than she normally takes at homeemphasizing how huge the impact is of carbohydrates on her sugar control). Otherwise as above discussed exercise, lifestyle, etc. Subjective Patient seen and evaluated at bedside this morning. Overnight, patient had a BSG of 61 that improved with dextrose. This morning, patient feels well and has no acute complaints. Reports persistent orthopnea, though her SOB is minimal or absent when sitting upright. Denies pain at this time. Patient denies CP, abdominal pain, nausea, vomiting, lightheadedness, dizziness, and diarrhea. Review of Systems Review of Systems: See HPI Physical Exam Physical Exam: Constitutional: well-appearing, no acute distress HEENT: NCAT, no conjunctival injection CV: regular rhythm, no murmur appreciated, extremities well-perfused, no LE edema Resp: CTABL, no wheezes/rales/rhonchi appreciated, no increased work of breathing MSK: RLE wound dressed, dressing CDI Neuro: alert, oriented, no focal neurologic deficit appreciated Results & Data Results & Data ([facility]) Vital Signs (Past 12 Hours) Vital Signs Temp Pulse Pulse Resp BP Pulse Ox 12/18/21 04:43 36.7 C 83 20 109/66 98 12/17/21 23:59 63 12/17/21 23:50 36.8 C 62 18 138/78 97 12/17/21 22:34 62 22 96 12/17/21 19:22 36.8 C 97 H 16 135/71 98 Resident Activity Tracking Resident Involvement: Resident Care Provided Care Provided: Adult Hospital Medicine (1) Hyperlipidemia Hyperlipidemia type: mixed hyperlipidemia Qualified Code(s): E78.2 - Mixed hyperlipidemia (2) Diabetic ulcer of right foot associated with type 2 diabetes mellitus, with fat layer exposed Diabetic foot ulcer location: midfoot Qualified Code(s): E11.621 - Type 2 diabetes mellitus with foot ulcer; L97.412 - Non-pressure chronic ulcer of right heel and midfoot with fat layer exposed (3) Hypertension Hypertension type: essential hypertension Qualified Code(s): I10 - Essential (primary) hypertension
[2021-12-18 07:45] LABS: Partial Thromboplastin Ratio 2.9
[2021-12-18 07:48] LABS: Partial Thromboplastin Time 80.6 Seconds (21.0-31.0)
[2021-12-18] MEDS: carvediloL 25 MG TAB PO SCH ×2 (09:11→20:37)
[2021-12-18] MEDS: CETIRIZINE HCL 10 MG TABLET PO SCH ×2 (09:12→20:40)
[2021-12-18] MEDS: ASPIRIN 81 MG ECTAB PO SCH (09:12)
[2021-12-18] MEDS: INSULIN ASPART PER UNIT SC SCH ×4 (09:37→20:53)
[2021-12-18] MEDS: INSULIN GLARGINE SOLOSTAR 100 UNITS/ML 3 ML PEN SC SCH (09:38)
--- NOTE | 2021-12-18 11:16 | Cardiology Progress Note ---
Date of Service December 18, 2021 Assessment & Plan (1) Non-ST elevation (NSTEMI) myocardial infarction: (2) Syncope: (3) Congestive heart failure (CHF): (4) Chronic ischemic heart disease: (5) Lower extremity edema: Plan: This is a 56-year-old diabetic female. She states she got up to go to the bathroom and felt really queasy and became diaphoretic. According to the patient she then passed out and was not found for several hours. After admission her cardiac troponins have elevated. She also has new wall motion abnormalities in the posterior myocardium on the echocardiogram suggesting ischemic heart disease. The patient had a CT of the chest with contrast and her creatinine increased. It has leveled back down to baseline and our plan is to proceed with a cardiac catheterization early next week. Admission and Anticipated Discharge Date Admission Date: December 15, 2021 Subjective The patient has no cardiac complaints today and feels well. Review of Systems Review of Systems: Review of Systems: See HPI for pertinent positives. All other 10 point review of systems are negative. Physical Exam Physical Exam: General: no acute distress and stated age Head: normocephalic, no masses, lesions, tenderness or abnormalities Eyes: conjunctiva are pink and non-injected, sclera clear Neck: supple, no adenopathy, no bruits, normal jugular venous pulse, no hepatojugular reflux Chest: normal shape and normal respiratory effort Lungs: clear to auscultation and percussion Cardiac Exam: - regular rate & rhythm, no murmurs gallops or rubs - normal S1, normal S2 Pulses: 2(+) throughout Abdomen: abdomen soft, non-tender, no abnormal masses and no hepatosplenomegaly Musculoskeletal: no gait disturbance, no joint inflammation, no deforming arthritis Extremities: no edema and no cyanosis Neuro: grossly normal exam Results & Data ([facility]) Vital Signs (Past 12 Hours) Vital Signs Temp Pulse Pulse Resp BP Pulse Ox 12/18/21 11:05 37.1 C 65 18 116/71 99 12/18/21 08:00 36.8 C 72 18 125/72 97 12/18/21 04:43 36.7 C 83 20 109/66 98 12/17/21 23:59 63 12/17/21 23:50 36.8 C 62 18 138/78 97 Laboratory Results Laboratory Results - last 24 hr 12/17/21 12/17/21 12/17/21 11:21 16:17 20:27 WBC RBC Hgb Hct MCV MCH MCHC RDW Std Deviation RDW Coeff of Anai Plt Count MPV APTT PTT Ratio Sodium Potassium Chloride Carbon Dioxide Anion Gap BUN Creatinine Est Cr Clr Drug Dosing Est GFR ( Amer) Est GFR (Non-Af Amer) BUN/Creatinine Ratio Glucose POC Glucose 148 H 175 H 96 Calcium Magnesium 12/18/21 12/18/21 12/18/21 05:39 05:43 05:43 WBC 11.55 H RBC 3.70 L Hgb 10.2 L Hct 32.3 L MCV 87.3 MCH 27.6 MCHC 31.6 L RDW Std Deviation 48.7 H RDW Coeff of Anai 15.4 H Plt Count 337 MPV 8.6 APTT Cancelled PTT Ratio Cancelled Sodium 140 Potassium 3.7 Chloride 108 H Carbon Dioxide 24 Anion Gap 8 BUN 61 H Creatinine 1.38 H D Est Cr Clr Drug Dosing 63.6 Est GFR ( Amer) 48.7 Est GFR (Non-Af Amer) 42.0 BUN/Creatinine Ratio 44.2 H Glucose 61 L POC Glucose Calcium 9.1 Magnesium 2.2 12/18/21 12/18/21 06:12 06:52 WBC RBC Hgb Hct MCV MCH MCHC RDW Std Deviation RDW Coeff of Anai Plt Count MPV APTT 80.6 H* PTT Ratio 2.9 Sodium Potassium Chloride Carbon Dioxide Anion Gap BUN Creatinine Est Cr Clr Drug Dosing Est GFR ( Amer) Est GFR (Non-Af Amer) BUN/Creatinine Ratio Glucose POC Glucose 77 Calcium Magnesium Medications Administered Current Inpatient Medications Acetaminophen (Acetaminophen 325 Mg Tab) 650 mg PO Q4H PRN PRN Reason: Pain or Fever Stop: 01/14/22 21:38 Last Admin: 12/17/21 01:09 Dose: 650 mg Documented by: Aspirin (Aspirin 81 Mg Ectab) 81 mg PO QAM [facility] Stop: 01/15/22 08:59 Last Admin: 12/18/21 09:12 Dose: 81 mg Documented by: Carvedilol (Carvedilol 25 Mg Tab) 25 mg PO BID [facility] Stop: 01/15/22 20:59 Last Admin: 12/18/21 09:11 Dose: 25 mg Documented by: Cetirizine HCl (Cetirizine Hcl 10 Mg Tablet) 10 mg PO DAILY [facility] Stop: 01/15/22 08:59 Last Admin: 12/18/21 09:12 Dose: Not Given Documented by: Dextrose (Dextrose 50% 50 Ml Syringe) 25 - 50 ml IV UD PRN; Protocol PRN Reason: Hypoglycemia Protocol Stop: 01/14/22 21:38 Last Admin: 12/17/21 07:42 Dose: 25 ml Documented by: Glucagon (Glucagon For Inj 1 Mg Vial) 1 mg SQ UD PRN; Protocol PRN Reason: Hypoglycemia Protocol Stop: 01/14/22 21:38 Glucose (Glucose 10 Tabs/Tube) 4 - 8 tabs PO UD PRN; Protocol PRN Reason: Hypoglycemia Protocol Stop: 01/14/22 21:38 Glucose (Glucose 40% Gel 15 Gm Tube) 15 - 30 gm PO UD PRN; Protocol PRN Reason: Hypoglycemia Protocol Stop: 01/14/22 21:38 Heparin Sodium/Dextrose (Heparin Sodium/Dextrose) 25,000 units in 500 mls @ 31 mls/hr IV .Q16H8M [facility]; Protocol Stop: 01/15/22 13:14 Last Titration: 12/18/21 07:48 Dose: 1,550 units/hr, 31 mls/hr Documented by: Insulin Aspart (Insulin Aspart Per Unit) 0 units SC ACHS [facility] Stop: 01/14/22 21:38 Last Admin: 12/18/21 09:37 Dose: Not Given Documented by: Insulin Glargine (Insulin Glargine Solostar 100 Units/Ml 3 Ml Pen) 20 units SC BID [facility] Stop: 01/17/22 20:59 Miscellaneous (Carbohydrates For Hypoglycemia ) 15 - 30 gm PO UD PRN PRN Reason: Hypoglycemia Protocol Stop: 01/14/22 21:38 Morphine Sulfate (Morphine Sulfate 2 Mg/Ml Carp) 2 mg IV Q30M PRN PRN Reason: Chest Pain Stop: 12/29/21 21:38 Nitroglycerin (Nitroglycerin Sl 0.4 Mg/Tab Tab) 0.4 mg SL UD PRN PRN Reason: Chest Pain Stop: 01/14/22 21:38 Ondansetron HCl (Ondansetron Inj 2 Mg/Ml 2 Ml Vial) 4 mg IV Q6H PRN PRN Reason: Nausea Stop: 04/29/22 21:38 Rosuvastatin Calcium (Rosuvastatin Calcium 20 Mg Tab) 40 mg PO [facility] Stop: 01/14/22 22:29 Last Admin: 12/17/21 21:02 Dose: 40 mg Documented by:
[2021-12-18] MEDS: HEPARIN SODIUM/DEXTROSE 25,000 UNITS/500 ML BAG IV SCH ×2 (11:44→13:12)
--- NOTE | 2021-12-18 13:53 | Billing Data ---
Date of Service December 18, 2021 Coding Level of Care Code 96202 Subseq Hosp Care Lvl 3
[2021-12-18 15:14] LABS: Partial Thromboplastin Ratio 2.2
[2021-12-18 15:31] LABS: Partial Thromboplastin Time 60.3 Seconds (21.0-31.0)
[2021-12-18] MEDS: ROSUVASTATIN CALCIUM 20 MG TAB PO SCH (20:38)
[2021-12-18] MEDS ORDERED: INSULIN GLARGINE SOLOSTAR 100 UNITS/ML 3 ML PEN SC SCH (21:00)
[2021-12-19] MEDS: HEPARIN SODIUM/DEXTROSE 25,000 UNITS/500 ML BAG IV SCH ×2 (04:37→21:45)
--- NOTE | 2021-12-19 07:07 | Hospitalist Progress Note ---
Date of Service December 19, 2021 Assessment & Plan (1) Elevated troponin: Plan: 56yo female with history of morbid obesity, T2DM (A1c 9.8) with neuropathy/Charcot right foot/chronic RLE ulcer, HFpEF (EF 55-60% in 12/16/21), pulmonary hypertension, BRYNN (on CPAP), presumed CAD, HTN, HLD, CKD3, and anemia of chronic kidney disease who was admitted to [facility] on 12/15 for worsening LE edema, then found with an elevated troponin. Elevated troponin, presumed CAD, hypotension Troponin 1.05 on admission, started trending downward on hospital day two (12/16) No chest pain on admission, though EKG showed mild ST abnormalities in lateral leads TTE (12/16) with new inferior/posterior wall motion abnormalities Suspect demand ischemia in the setting of hypotension secondary to increasing torsemide doses over the prior few weeks Cardiology consulted; plan for diagnostic catheterization once patient's KHANG has improved (will likely happen on 12/20) Continue heparin gtt Continue ASA, carvedilol, rosuvastatin Losartan held due to hypotension KHANG on CKD3 Creatinine peaked at 1.79, likely secondary to overdiuresis and fluid restriction 12/19: creatinine improved to 1.33 Trend daily BMP, avoid nephrotoxins, avoid diuresis if possible, continue to hold losartan, encourage PO intake Hypoglycemia, IDDM2 A1c 9.8 (12/16/21); patient's home insulin regimen is mostly basal with minimal -to-no bolus Suspect hypoglycemic episodes are secondary to significantly reduced carb intake while in hospital 12/17: patient's home lantus (60u bid) decreased to 50u in AM and 20u in PM; however, patient still had another hypoglycemic episode on 12/18 12/19: reduced patient's AM lantus to 20u qd, will reduce this evening's dose to 10u given tomorrow's planned catheterization Continue ISS (CF 30mg/dL/1u, CR 8g/1u) Will require close PCP follow-up for optimization of home regimen and continued education Lower extremity edema On admission, patient appeared euvolemic, lungs CTABL, CXR without evidence of pulmonary congestion BNP on admission elevated to 1141, though there is no prior for comparison Suspect LE edema secondary to venous stasis rather than CHF; hold further diuresis Continue strict I/O's, reassess volume status frequently Cardiology consulted as above Weight gain ~11kg weight gain over last 3-4 months; suspect secondary to dietary indiscretion; low suspicion for CHF as above Patient does note orthopnea, though this is likely secondary to OHS Trend daily weight, continue daily dietary and lifestyle counseling Morbid obesity; BRYNN Obesity/BRYNN likely the etiology of patient's orthopnea Continue CPAP qhs Syncope Patient with one syncopal episode prior to admission, likely due to hypotension resultant from overdiuresis +/- hypoglycemia Fall precautions T2DM management as above Chronic conditions: Right charcot foot with chronic ulcer: continue wound care Left foot pressure ulcer: continue wound care Hypothyroidism: TSH 3.4 (12/16/21), no intervention indicated HTN: continue home carvedilol, holding losartan as noted above HLD: continue home statin MDD/JEANMARIE: continue home venlafaxine FEN: heart-healthy, low-sodium, carb-consistent diet, no IVF at this time Code status: DNR/DNI DVT ppx: heparin gtt Held home meds: torsemide, losartan Isolation: none Consults: cardiology PT/OT: ordered Case management: following Dispo: PCU telemetry, anticipate cardiac catheterization in the coming days (2) Lower extremity edema: (3) Chronic heart failure with preserved ejection fraction (HFpEF): (4) Syncope: (5) Diabetes mellitus type 2, uncontrolled, with complications: (6) Gastroparesis due to DM: (7) Diabetic ulcer of right foot associated with type 2 diabetes mellitus, with fat layer exposed: (8) Diabetic peripheral neuropathy associated with type 2 diabetes mellitus: (9) Obesity, Class III, BMI 40-49.9 (morbid obesity): (10) Hypertension: (11) Hyperlipidemia: (12) Depression: (13) Anxiety: Admission and Anticipated Discharge Date Admission Date: December 15, 2021 Supervising Physician Co-Signing Physician Notes I personally examined the patient and verified all tan points of history and exam, discussed case, and agree with decision making with Dr Reji Hearn about heart cath tomorrow. Nervous that because her sugars are higher now she is worried that she will bottom out overnight. This leads to a productive and extensive discussion of the interface of anxiety and care for her chronic medical problems. Vitals noted, in general she is awake and alert pleasant no distress. HEENT normocephalic atraumatic mucous membranes moist. Breathing unlabored no accessory muscle use good effort. Skin shows no rashes no pallor or icterus. Skin without notable erythema Edemaseems to be entirely venous stasis. Compression as possible (wound consulted) movement as possible, low sodium. Diuretics obviously not helping (have been stopped), ongoing education and lifestyle change Elevated troponinprobably watershed ischemia superimposed on coronary diseaseshe does show new wall motion abnormalitiesfor diagnostic cathanticipate tomorrow AKIlikely diuretic/fluid volume inducedholding diuretics, was given albumin with little benefit (was given because she was understandably worried about fluid retention with IV fluidsbut then this was followed with a liter of LR that did improve her creatinine quite a bit). Hard to tell if she is at what may be her new baseline, or if there may be more room for improvementeither way safe for cath, would be okay to give IV fluids if needed perioperatively for contrast nephropathy risk Type 2 diabetesongoing education on the influence of lifestyle and on insulin management. She is down dramatically on insulin to probably 25% of what she was on prehospitalizationfurther highlighting the massive influence of lifestyle for her. For now, given that she has had a few days with low sugars, and we do not want a low to complicate her situation tomorrow while she is n.p.o. for cathhave backed down on insulins a good bit further, and for a day, it would be reasonable if she runs a tiny bit higheragain with the goal of having her have is uncomplicated a day with the cath as possible. Continue basal bolus overall Otherwise as above discussed exercise, lifestyle, etc. Subjective Patient seen and evaluated at bedside this morning. No acute events overnight. Patient feels well today and has no specific complaints, though she does note some mild anxiety regarding tomorrow's planned catheterization. Notes her SOB has improved since yesterday. Patient denies CP, abdominal pain, nausea, vomiting, lightheadedness, dizziness, and diarrhea. Physical Exam Physical Exam: Constitutional: well-appearing, no acute distress, sitting in bedside wheelchair HEENT: MMM CV: regular rhythm, no murmur appreciated Resp: CTABL, no wheezes/rales/rhonchi appreciated, breathing non-labored MSK: RLE wound dressed Neuro: alert, oriented, no focal neurologic deficit Results & Data Results & Data ([place]) Vital Signs (Past 12 Hours) Vital Signs Temp Pulse Pulse Resp BP Pulse Ox 12/19/21 04:23 36.7 C 61 20 140/77 93 12/19/21 00:00 66 12/18/21 22:58 36.8 C 65 16 121/76 95 12/18/21 19:25 37.1 C 97 H 18 104/67 97 Resident Activity Tracking Resident Involvement: Resident Care Provided Care Provided: Adult Hospital Medicine (1) Hyperlipidemia Hyperlipidemia type: mixed hyperlipidemia Qualified Code(s): E78.2 - Mixed hyperlipidemia (2) Diabetic ulcer of right foot associated with type 2 diabetes mellitus, with fat layer exposed Diabetic foot ulcer location: midfoot Qualified Code(s): E11.621 - Type 2 diabetes mellitus with foot ulcer; L97.412 - Non-pressure chronic ulcer of right heel and midfoot with fat layer exposed (3) Hypertension Hypertension type: essential hypertension Qualified Code(s): I10 - Essential (primary) hypertension
[2021-12-19 07:21] LABS: Basophils # (auto) 0.02 K/uL (0-0.2); Basophils % (auto) 0.2 %; Eosinophils # (auto) 0.22 K/uL (0-0.5); Hemoglobin 10.3 g/dL (12.0-16.0); Immature Granulocytes # (auto) 0.08 K/uL (0.00-0.02); Immature Granulocytes % (auto) 0.7 %; Lymphocytes # (auto) 2.36 K/uL (1.2-3.4); Lymphocytes % (auto) 21.9 %; Mean Corpuscular Hemoglobin 27.4 pg (25-34); Mean Corpuscular Hgb Conc 31.2 g/dL (32-36); Mean Corpuscular Volume 87.8 fL (80-100); Mean Platelet Volume 8.5 fL (7.4-10.4); Monocytes # (auto) 0.77 K/uL (0.11-0.59); Monocytes % (auto) 7.1 %; Neutrophils # (auto) 7.32 K/uL (1.4-6.5); Neutrophils % (auto) 68.1 %; Platelet Count 296 K/uL (130-400); RDW Coefficient of Variation 15.7 % (11.5-14.5); RDW Standard Deviation 48.8 fL (36.4-46.3); Red Blood Count 3.76 M/uL (4.2-5.4); White Blood Count 10.77 K/uL (4.8-10.8)
[2021-12-19 07:45] LABS: Partial Thromboplastin Ratio 2.2
[2021-12-19 07:46] LABS: Partial Thromboplastin Time 61.4 Seconds (21.0-31.0)
[2021-12-19 07:57] LABS: BUN Creatinine Ratio 39.8 (10-20); Calcium 9.6 mg/dl (8.5-10.1); Creatinine Clr Calc Pharmacy 66.3 ml/min; Est GFR (African American) 50.9 ml/min; Magnesium 2.2 mg/dl (1.7-2.4); Phosphorus 4.3 mg/dl (2.5-4.9); Potassium 3.9 mmol/L (3.5-5.1)
[2021-12-19] MEDS ORDERED: INSULIN GLARGINE SOLOSTAR 100 UNITS/ML 3 ML PEN SC SCH ×2 (09:00→21:00)
[2021-12-19] MEDS: INSULIN ASPART PER UNIT SC SCH ×4 (09:14→21:46)
[2021-12-19] MEDS: carvediloL 25 MG TAB PO SCH ×2 (09:20→20:31)
[2021-12-19] MEDS: ASPIRIN 81 MG ECTAB PO SCH (09:21)
--- NOTE | 2021-12-19 12:58 | Cardiology Progress Note ---
Date of Service December 19, 2021 Assessment & Plan (1) Non-ST elevation (NSTEMI) myocardial infarction: (2) Syncope: (3) Congestive heart failure (CHF): (4) Chronic ischemic heart disease: (5) Lower extremity edema: Plan: The plan will be to proceed with a cardiac catheterization tomorrow. I explained the risk, benefit and intent of the procedure to her and she is willing to proceed. She will be made n.p.o. after midnight. We will have further recommendations following that procedure. Admission and Anticipated Discharge Date Admission Date: December 15, 2021 Subjective The patient is alert and oriented. No new cardiac complaints today. Review of Systems Review of Systems: Review of Systems: See HPI for pertinent positives. All other 10 point review of systems are negative. Physical Exam Physical Exam: General: no acute distress and stated age Head: normocephalic, no masses, lesions, tenderness or abnormalities Eyes: conjunctiva are pink and non-injected, sclera clear Neck: supple, no adenopathy, no bruits, normal jugular venous pulse, no hepatojugular reflux Chest: normal shape and normal respiratory effort Lungs: clear to auscultation and percussion Cardiac Exam: - regular rate & rhythm, no murmurs gallops or rubs - normal S1, normal S2 Pulses: 2(+) throughout Abdomen: abdomen soft, non-tender, no abnormal masses and no hepatosplenomegaly Musculoskeletal: no gait disturbance, no joint inflammation, no deforming arthritis Extremities: The right foot is bandaged due to foot ulcer Neuro: grossly normal exam Results & Data ([facility]) Vital Signs (Past 12 Hours) Vital Signs Temp Pulse Pulse Resp BP Pulse Ox 12/19/21 11:00 37.0 C 64 18 126/74 100 12/19/21 08:00 61 12/19/21 07:30 36.5 C 62 18 111/67 99 12/19/21 04:23 36.7 C 61 20 140/77 93 Laboratory Results Laboratory Results - last 24 hr 12/18/21 12/18/21 12/18/21 13:55 14:43 16:05 WBC RBC Hgb Hct MCV MCH MCHC RDW Std Deviation RDW Coeff of Anai Plt Count MPV Immature Gran % (Auto) Neut % (Auto) Lymph % (Auto) [place] % (Auto) Eos % (Auto) Baso % (Auto) Neut # (Auto) Lymph # (Auto) [place] # (Auto) Eos # (Auto) Baso # (Auto) Immature Gran # (Auto) APTT Cancelled 60.3 H* PTT Ratio Cancelled 2.2 Sodium Potassium Chloride Carbon Dioxide Anion Gap BUN Creatinine Est Cr Clr Drug Dosing Est GFR ( Amer) Est GFR (Non-Af Amer) BUN/Creatinine Ratio Glucose POC Glucose 132 H Calcium Phosphorus Magnesium 12/18/21 12/19/21 12/19/21 20:32 07:05 07:05 WBC 10.77 RBC 3.76 L Hgb 10.3 L Hct 33.0 L MCV 87.8 MCH 27.4 MCHC 31.2 L RDW Std Deviation 48.8 H RDW Coeff of Anai 15.7 H Plt Count 296 MPV 8.5 Immature Gran % (Auto) 0.7 Neut % (Auto) 68.1 Lymph % (Auto) 21.9 [place] % (Auto) 7.1 Eos % (Auto) 2.0 Baso % (Auto) 0.2 Neut # (Auto) 7.32 H Lymph # (Auto) 2.36 [place] # (Auto) 0.77 H Eos # (Auto) 0.22 Baso # (Auto) 0.02 Immature Gran # (Auto) 0.08 H APTT PTT Ratio Sodium 140 Potassium 3.9 Chloride 107 Carbon Dioxide 26 Anion Gap 7 BUN 53 H Creatinine 1.33 H Est Cr Clr Drug Dosing 66.3 Est GFR ( Amer) 50.9 Est GFR (Non-Af Amer) 44.0 BUN/Creatinine Ratio 39.8 H Glucose 122 H POC Glucose 90 Calcium 9.6 Phosphorus 4.3 Magnesium 2.2 12/19/21 12/19/21 12/19/21 07:05 07:13 11:30 WBC RBC Hgb Hct MCV MCH MCHC RDW Std Deviation RDW Coeff of Anai Plt Count MPV Immature Gran % (Auto) Neut % (Auto) Lymph % (Auto) [place] % (Auto) Eos % (Auto) Baso % (Auto) Neut # (Auto) Lymph # (Auto) [place] # (Auto) Eos # (Auto) Baso # (Auto) Immature Gran # (Auto) APTT 61.4 H* PTT Ratio 2.2 Sodium Potassium Chloride Carbon Dioxide Anion Gap BUN Creatinine Est Cr Clr Drug Dosing Est GFR ( Amer) Est GFR (Non-Af Amer) BUN/Creatinine Ratio Glucose POC Glucose 133 H 196 H Calcium Phosphorus Magnesium Medications Administered Current Inpatient Medications Acetaminophen (Acetaminophen 325 Mg Tab) 650 mg PO Q4H PRN PRN Reason: Pain or Fever Stop: 01/14/22 21:38 Last Admin: 12/17/21 01:09 Dose: 650 mg Documented by: Aspirin (Aspirin 81 Mg Ectab) 81 mg PO QAM [facility] Stop: 01/15/22 08:59 Last Admin: 12/19/21 09:21 Dose: 81 mg Documented by: Carvedilol (Carvedilol 25 Mg Tab) 25 mg PO BID [facility] Stop: 01/15/22 20:59 Last Admin: 12/19/21 09:20 Dose: 25 mg Documented by: Cetirizine HCl (Cetirizine Hcl 10 Mg Tablet) 10 mg PO HS [facility] Stop: 01/18/22 20:59 Dextrose (Dextrose 50% 50 Ml Syringe) 25 - 50 ml IV UD PRN; Protocol PRN Reason: Hypoglycemia Protocol Stop: 01/14/22 21:38 Last Admin: 12/17/21 07:42 Dose: 25 ml Documented by: Glucagon (Glucagon For Inj 1 Mg Vial) 1 mg SQ UD PRN; Protocol PRN Reason: Hypoglycemia Protocol Stop: 01/14/22 21:38 Glucose (Glucose 10 Tabs/Tube) 4 - 8 tabs PO UD PRN; Protocol PRN Reason: Hypoglycemia Protocol Stop: 01/14/22 21:38 Glucose (Glucose 40% Gel 15 Gm Tube) 15 - 30 gm PO UD PRN; Protocol PRN Reason: Hypoglycemia Protocol Stop: 01/14/22 21:38 Heparin Sodium/Dextrose (Heparin Sodium/Dextrose) 25,000 units in 500 mls @ 31 mls/hr IV .[id number] [facility]; Protocol Stop: 01/15/22 13:14 Last Titration: 12/19/21 06:52 Dose: 1,550 units/hr, 31 mls/hr Documented by: Insulin Aspart (Insulin Aspart Per Unit) 0 units SC ACHS [facility] Stop: 01/14/22 21:38 Last Admin: 12/19/21 12:03 Dose: 8 units Documented by: Insulin Glargine (Insulin Glargine Solostar 100 Units/Ml 3 Ml Pen) 10 units SC ONE ONE Stop: 12/19/21 21:01 Insulin Glargine (Insulin Glargine Solostar 100 Units/Ml 3 Ml Pen) 20 units SC DAILY [facility] Stop: 01/19/22 08:59 Miscellaneous (Carbohydrates For Hypoglycemia ) 15 - 30 gm PO UD PRN PRN Reason: Hypoglycemia Protocol Stop: 01/14/22 21:38 Morphine Sulfate (Morphine Sulfate 2 Mg/Ml Carp) 2 mg IV Q30M PRN PRN Reason: Chest Pain Stop: 12/29/21 21:38 Nitroglycerin (Nitroglycerin Sl 0.4 Mg/Tab Tab) 0.4 mg SL UD PRN PRN Reason: Chest Pain Stop: 01/14/22 21:38 Ondansetron HCl (Ondansetron Inj 2 Mg/Ml 2 Ml Vial) 4 mg IV Q6H PRN PRN Reason: Nausea Stop: 01/14/22 21:38 Rosuvastatin Calcium (Rosuvastatin Calcium 20 Mg Tab) 40 mg PO HS [facility] Stop: 01/14/22 22:29 Last Admin: 12/18/21 20:38 Dose: 40 mg Documented by:
[2021-12-19] MEDS ORDERED: SODIUM CHLORIDE 0.9% 1000ML 1,000 ML IV SCH (13:00)
[2021-12-19 16:46] LABS: CK Iso Interpretation MACRO CK TYPE 1; CK Total 523 U/L (29-143); CK-MB 0 % (<5); CK-MM 92 % (95-100)
[2021-12-19] MEDS: ROSUVASTATIN CALCIUM 20 MG TAB PO SCH (20:47)
[2021-12-19] MEDS ORDERED: INSULIN GLARGINE SOLOSTAR 100 UNITS/ML 3 ML PEN SC ONE (21:00)
[2021-12-19] MEDS ORDERED: CETIRIZINE HCL 10 MG TABLET PO SCH (21:00)
[2021-12-19] MEDS ORDERED: LANTUS PER UNIT CHARGE SQ ONE (21:00)
[2021-12-20] MEDS ORDERED: SODIUM CHLORIDE 0.9% 1000ML 1,000 ML IV SCH
--- NOTE | 2021-12-20 07:53 | Hospitalist Progress Note ---
Date of Service December 20, 2021 Assessment & Plan (1) Elevated troponin: Plan: 56yo female with history of morbid obesity, T2DM (A1c 9.8) with neuropathy/Charcot right foot/chronic RLE ulcer, HFpEF (EF 55-60% in 12/16/21), pulmonary hypertension, BRYNN (on CPAP), presumed CAD, HTN, HLD, CKD3, and anemia of chronic kidney disease who was admitted to [facility] on 12/15 for worsening LE edema, then found with an elevated troponin. Elevated troponin, presumed CAD, hypotension Troponin 1.05 on admission, started trending downward on hospital day two (12/16) No chest pain on admission, though EKG showed mild ST abnormalities in lateral leads TTE (12/16) with new inferior/posterior wall motion abnormalities Suspect demand ischemia in the setting of hypotension secondary to increasing torsemide doses over the prior few weeks Cardiology consulted; plan for diagnostic catheterization today, initially held due to KHANG which has improved Continue heparin gtt Continue ASA, carvedilol, rosuvastatin Losartan held due to hypotension KHANG on CKD3 Creatinine peaked at 1.79, likely secondary to overdiuresis and fluid restriction 12/19: creatinine improved to 1.33 Trend daily BMP, avoid nephrotoxins, avoid diuresis if possible, continue to hold losartan, encourage PO intake Hypoglycemia, IDDM2 A1c 9.8 (12/16/21); patient's home insulin regimen is mostly basal with [id number] bolus Suspect hypoglycemic episodes are secondary to significantly reduced carb intake while in hospital 12/17: patient's home lantus (60u bid) decreased to 50u in AM and 20u in PM; however, patient still had another hypoglycemic episode on 12/18 12/19: reduced patient's AM lantus to 20u qd, will reduce this evening's dose to 10u given tomorrow's planned catheterization 12/20: patient on 20u this AM and will determine PM dosing based on today's bsg Continue ISS (CF 30mg/dL/1u, CR 8g/1u) Will require close PCP follow-up for optimization of home regimen and continued education Lower extremity edema On admission, patient appeared euvolemic, lungs CTABL, CXR without evidence of pulmonary congestion BNP on admission elevated to 1141, though there is no prior for comparison Suspect LE edema secondary to venous stasis rather than CHF; hold further diuresis Continue strict I/O's, reassess volume status frequently Cardiology consulted as above Weight gain ~11kg weight gain over last 3-4 months; suspect secondary to dietary indiscretion; low suspicion for CHF as above Patient does note orthopnea, though this is likely secondary to OHS Trend daily weight, continue daily dietary and lifestyle counseling plan to follow up with Dr. Whalen in March to discuss weight loss Morbid obesity; BRYNN Obesity/BRYNN likely the etiology of patient's orthopnea Continue CPAP qhs Syncope Patient with one syncopal episode prior to admission, likely due to hypotension resultant from overdiuresis +/- hypoglycemia Fall precautions T2DM management as above Chronic conditions: Right charcot foot with chronic ulcer: continue wound care Left foot pressure ulcer: continue wound care Hypothyroidism: TSH 3.4 (12/16/21), no intervention indicated HTN: continue home carvedilol, holding losartan as noted above HLD: continue home statin MDD/JEANMARIE: continue home venlafaxine FEN: heart-healthy, low-sodium, carb-consistent diet Code status: DNR/DNI DVT ppx: heparin gtt Held home meds: torsemide, losartan Isolation: none Consults: cardiology PT/OT: ordered Case management: following Dispo: PCU telemetry Admission and Anticipated Discharge Date Admission Date: December 15, 2021 Results & Data Results & Data ([facility]) Vital Signs (Past 12 Hours) Vital Signs Temp Pulse Pulse Resp BP Pulse Ox 12/20/21 04:49 37.1 C 61 18 105/62 99 12/19/21 23:59 37 C 59 L 18 110/73 99 12/19/21 23:05 62 12/19/21 19:57 37 C 65 18 114/65 98
[2021-12-20 08:09] LABS: Basophils # (auto) 0.02 K/uL (0-0.2); Basophils % (auto) 0.2 %; Eosinophils # (auto) 0.17 K/uL (0-0.5); Eosinophils % (auto) 1.6 %; Hematocrit (blood only) 32.5 % (37-47); Hemoglobin 10.1 g/dL (12.0-16.0); Immature Granulocytes # (auto) 0.05 K/uL (0.00-0.02); Immature Granulocytes % (auto) 0.5 %; Lymphocytes # (auto) 2.63 K/uL (1.2-3.4); Lymphocytes % (auto) 25.2 %; Mean Corpuscular Hemoglobin 27.3 pg (25-34); Mean Corpuscular Hgb Conc 31.1 g/dL (32-36); Mean Corpuscular Volume 87.8 fL (80-100); Mean Platelet Volume 8.6 fL (7.4-10.4); Monocytes # (auto) 0.75 K/uL (0.11-0.59); Monocytes % (auto) 7.2 %; Neutrophils % (auto) 65.3 %; Platelet Count 292 K/uL (130-400); RDW Standard Deviation 48.9 fL (36.4-46.3); White Blood Count 10.42 K/uL (4.8-10.8)
[2021-12-20 08:30] LABS: BUN Creatinine Ratio 39.9 (10-20); Calcium 10.2 mg/dl (8.5-10.1); Creatinine Clr Calc Pharmacy 64.2 ml/min; Est GFR (African American) 48.7 ml/min; Potassium 4.2 mmol/L (3.5-5.1)
[2021-12-20 08:55] LABS: Partial Thromboplastin Time 55.5 Seconds (21.0-31.0)
[2021-12-20] MEDS ORDERED: LANTUS PER UNIT CHARGE SQ SCH (09:00)
[2021-12-20] MEDS ORDERED: INSULIN GLARGINE SOLOSTAR 100 UNITS/ML 3 ML PEN SC SCH (09:00)
[2021-12-20] MEDS: INSULIN ASPART PER UNIT SC SCH ×3 (09:03→17:36)
[2021-12-20] MEDS: carvediloL 25 MG TAB PO SCH (10:16)
[2021-12-20] MEDS: ASPIRIN 81 MG ECTAB PO SCH (10:16)
--- NOTE | 2021-12-20 12:32 | Cardiology Progress Note ---
Date of Service December 20, 2021 Assessment & Plan (1) Non-ST elevation (NSTEMI) myocardial infarction: (2) Syncope: (3) Congestive heart failure (CHF): (4) Chronic ischemic heart disease: (5) Lower extremity edema: Plan: Discuss plans for diagnostic cardiac catheterization in detail with patient she is reluctant to proceed at this time. Previously presumed coronary artery disease been managed very conservatively with medical therapies. Thepatient presents after a fall and extended episode on floor. Echocardiogram does demonstrate new wall motion abnormality posteriorly and troponins were elevated although without rise and fall configuration. Discussed findings in detail. Patient high risk for procedure and interventions given limited access and presumed multivessel disease. Recent clinical course notable for transient renal insufficiency following contrast load. Currently asymptomatic but ongoing issues with chronic congestive heart failure with preserved ejection fraction remain present. After discussion, will allow patient to be discharged home with ultimate plans to perform diagnostic catheterization to be performed at [facility] when agreeable We will arrange patient to be seen in the next week Continue antiplatelet therapy with aspirin 81 mg/day, beta-genoveva with carvedilol 25 mg twice per day Continue to hold losartan given marginal blood pressures, orthostatic syncope presentation, transient renal insufficiency. We will likely reinstitute post discharge Resume torsemide 20 mg p.o. daily beginning tomorrow CHF instructions sodium and fluid restriction Patient previously not tolerant of spironolactone. May be reasonable candidate for Jardiance as part of her diabetic management and for heart failure with preserved ejection fraction Admission and Anticipated Discharge Date Admission Date: December 15, 2021 Subjective Patient was seen and examined, chart, medications, telemetry reviewed. Still feels "fluid on board". No chest pains, tachypalpitations, dizziness. Uncertain whether she would be able to lie flat for diagnostic cardiac catheterization and does not wish to have procedure performed this admission. Review of Systems Review of Systems: All systems reviewed & are unremarkable except as noted in Subjective Physical Exam Constitutional: + morbidly obese; no acute distress Eyes: PERRL, conjunctivae normal, anicteric sclerae ENMT: external ear and nose normal, oropharynx normal Neck: trachea midline, no thyromegaly Respiratory: Auscultation: lungs clear to auscultation bilaterally Cardiovascular: Rate/Rhythm: regular rate and regular rhythm Vessels: no JVD and + radial pulses abnormal Extremities: + edema (Trace) Gastrointestinal (Abdomen): Percussion/Palpation: abdomen soft; abdomen nontender Obese with very large panniculus Neurologic: PERRL, EOMI, accommodation nl, no face palsy, no dysarthria Results & Data ([facility]) Vital Signs (Past 12 Hours) Vital Signs Temp Pulse Pulse Resp BP Pulse Ox 12/20/21 11:26 37.1 C 59 L 18 106/70 99 12/20/21 08:10 36.8 C 59 L 19 108/61 100 12/20/21 08:00 57 L 12/20/21 04:49 37.1 C 61 18 105/62 99 Laboratory Results Laboratory Results - last 24 hr 12/16/21 12/19/21 12/19/21 10:30 16:05 20:30 WBC RBC Hgb Hct MCV MCH MCHC RDW Std Deviation RDW Coeff of Anai Plt Count MPV Immature Gran % (Auto) Neut % (Auto) Lymph % (Auto) [place] % (Auto) Eos % (Auto) Baso % (Auto) Neut # (Auto) Lymph # (Auto) [place] # (Auto) Eos # (Auto) Baso # (Auto) Immature Gran # (Auto) APTT PTT Ratio Sodium Potassium Chloride Carbon Dioxide Anion Gap BUN Creatinine Est Cr Clr Drug Dosing Est GFR ( Amer) Est GFR (Non-Af Amer) BUN/Creatinine Ratio Glucose POC Glucose 192 H 172 H Calcium Creatine Kinase 523 H CK-MM (CK-3) 92 L CK-MB (CK-2) 0 CK-BB (CK-1) None Detected Creatine Kinase Interp MACRO CK TYPE 1 12/20/21 12/20/21 12/20/21 07:30 07:57 07:57 WBC 10.42 RBC 3.70 L Hgb 10.1 L Hct 32.5 L MCV 87.8 MCH 27.3 MCHC 31.1 L RDW Std Deviation 48.9 H RDW Coeff of Anai 16.0 H Plt Count 292 MPV 8.6 Immature Gran % (Auto) 0.5 Neut % (Auto) 65.3 Lymph % (Auto) 25.2 [place] % (Auto) 7.2 Eos % (Auto) 1.6 Baso % (Auto) 0.2 Neut # (Auto) 6.80 H Lymph # (Auto) 2.63 [place] # (Auto) 0.75 H Eos # (Auto) 0.17 Baso # (Auto) 0.02 Immature Gran # (Auto) 0.05 H APTT PTT Ratio Sodium 139 Potassium 4.2 Chloride 106 Carbon Dioxide 24 Anion Gap 9 BUN 55 H Creatinine 1.38 H Est Cr Clr Drug Dosing 64.2 Est GFR ( Amer) 48.7 Est GFR (Non-Af Amer) 42.0 BUN/Creatinine Ratio 39.9 H Glucose 114 H POC Glucose 120 H Calcium 10.2 H Creatine Kinase CK-MM (CK-3) CK-MB (CK-2) CK-BB (CK-1) Creatine Kinase Interp 12/20/21 12/20/21 07:57 11:16 WBC RBC Hgb Hct MCV MCH MCHC RDW Std Deviation RDW Coeff of Anai Plt Count MPV Immature Gran % (Auto) Neut % (Auto) Lymph % (Auto) [place] % (Auto) Eos % (Auto) Baso % (Auto) Neut # (Auto) Lymph # (Auto) [place] # (Auto) Eos # (Auto) Baso # (Auto) Immature Gran # (Auto) APTT 55.5 H* PTT Ratio 2.0 Sodium Potassium Chloride Carbon Dioxide Anion Gap BUN Creatinine Est Cr Clr Drug Dosing Est GFR ( Amer) Est GFR (Non-Af Amer) BUN/Creatinine Ratio Glucose POC Glucose 112 H Calcium Creatine Kinase CK-MM (CK-3) CK-MB (CK-2) CK-BB (CK-1) Creatine Kinase Interp
--- NOTE | 2021-12-20 18:00 | Discharge Summary ---
Date of Service December 20, 2021 Admission HPI Per Admitting Provider This patient is a 56-year-old female with history of morbid obesity, DM 2 with neuropathy and Charcot foot, HFpEF 60-65% on echo 08/08, presumed CAD, hyperlipidemia, pulmonary hypertension, CKD stage III with proteinuria, peptic ulcer disease, BRYNN on CPAP, anemia of chronic kidney disease, kidney stones, HTN, asthma, hyperlipidemia, who presents to the ER with increasing shortness of breath and significant volume overload. She reports she has been trying to decrease her fluid intake and her torsemide dose is titrated up to 80 mg alternating with 60 mg daily by her professor of communication. She is unable to weigh herself at home, but reports significant abdominal girth distention and lower extremity swelling as well as orthopnea. Patient denies any chest pain. She also reports that 2 nights ago she had an episode where she believes that she passed out. She got up out of bed to go to the bathroom and remembers falling to the floor and then laid there for the rest of the night approximately 7 hours. Her father is hard of hearing that lives with her and she was finally able to get his attention by banging on the wall when he woke up the next morning. She did develop a pressure sore on her left ankle from laying on the ground. She thinks it was related to low blood pressure as she has been trying to limit fluid intake and increase her diuretics as above. Her father contacted EMS, EMS arrived and lifted her into a chair. She states at that time she felt well therefore did not seek any further medical care. She states that she was seen today at the wound care clinic in regards to a healing wound to her right lower extremity where she has a history of Charcot foot. She states that she was explaining her symptoms to them and was advised to come to the emergency department to be evaluated. In the ER, she was found to have a troponin of 1.05 and her ECG showed inverted T waves in the lateral leads and nonspecific T wave abnormality in the inferior leads which was changed from previous. Her CT of the head and face were negative for acute issues. Her chest x-ray showed decreased inspiratory effort but otherwise no acute disease. Her proBNP was elevated at 1100. In the ER, she was started on a heparin drip and given an aspirin. She was given her usual afternoon dose of torsemide 20 mg. She will be admitted for acute on chronic HFpEF as well as NSTEMI. Principal Diagnosis NSTEMI Discharge Exam Constitutional WD/WN, vitals as above Eyes PERRL, conjunctivae normal, anicteric sclerae ENMT external ear and nose normal, oropharynx normal Neck normal visual inspection Respiratory normal respiratory effort, lungs clear to auscultation Cardiovascular RRR, no murmur, no edema Gastrointestinal (Abdomen) normal bowel sounds, soft, nontender, no hepatosplenomegaly Musculoskeletal no cyanosis or clubbing, extremities motor strength 5/5 Skin no rashes, warm and dry Neurologic no focal motor deficits Psychiatric Orientation: alert Discharge Data Allergies Allergy/AdvReac Type Severity Reaction Status Date / Time adhesive Allergy Severe blisters Verified 12/15/21 15:15 ceftazidime [From Fortaz] Allergy Severe renal Verified 12/15/21 15:15 failure dalbavancin Allergy Severe RASH ALL Verified 12/15/21 15:15 OVER FACE AND CHEST doxycycline Allergy Severe RASH Verified 12/15/21 15:15 Sulfa (Sulfonamide Allergy Severe w/ Verified 12/15/21 15:15 Antibiotics) diuretics - due to kidneys tetracycline Allergy Severe RASH Verified 12/15/21 15:15 vancomycin Allergy Severe renal Verified 12/15/21 15:15 failure sitagliptin [From Januvia] Allergy Intermediate muscle Verified 12/15/21 15:15 spasms hydrochlorothiazide Allergy Unknown Rash Verified 12/15/21 15:15 ibuprofen AdvReac Severe Renal Verified 12/15/21 15:15 Failure ketorolac [From Toradol] AdvReac Severe Renal Verified 12/15/21 15:15 Failure carvedilol AdvReac Mild lip Verified 12/15/21 15:15 numbness DIURETICS AdvReac Severe unable to Uncoded 12/15/21 15:15 take because of kidneys Consultations 12/15/21 16:33 ED Decision to Admit Stat 12/15/21 21:39 Consult Cardiology Routine Procedures Performed Operation Date: 12/20/21 16:00 Actual Procedures p Cath, Left with Cors and Vent - Alberto Saldivar MD Ordered Studies 12/15/21 15:00 CT facial bones wo con Stat CT head/brain wo con Stat 12/17/21 17:51 US arterial duplex LE BI Routine Diabetes Follow up Diabetes Follow-up Needed for HgbA1c >9% Hospital Course (1) Elevated troponin: 56yo female with history of morbid obesity, T2DM (A1c 9.8) with neuropathy/Charcot right foot/chronic RLE ulcer, HFpEF (EF 55-60% in 12/16/21), pulmonary hypertension, BRYNN (on CPAP), presumed CAD, HTN, HLD, CKD3, and anemia of chronic kidney disease who was admitted to [facility] on 12/15 for worsening LE edema, then found with an elevated troponin concerning for NSTEMI. NSTEMI, Syncope, CAD, hypotension Troponin 1.05 on admission, started trending downward on hospital day two (12/16) No chest pain on admission, though EKG showed mild ST abnormalities in lateral leads TTE (12/16) -- new inferior/posterior wall motion abnormalities Suspect demand ischemia in the setting of hypotension secondary to increasing torsemide doses over the prior few weeks Cardiology consulted; Patient reluctant for LHC. Presented after fall and extended episode on floor. Patient high risk for procedure and intervention given limited access and presumed multivessel disease. Discussion with patient w/ plan for outpatient catheterization at [facility]. Close outpatient f/u with cardiology Continue ASA and rosuvastatin Carvedilol dose decreased to 25 mg BID Losartan to be on hold due to hypotension Chronic HFpEF - Difficulty with fluid management as outpatient recently - with hypovolemia on admission. - resume torsemide 20mgs starting tomorrow - hold losartan due to lower BP - CHF instructions given. - Not tolerant to spironolactone in past. - role of adding Jardiance to be addressed as outpatient KHANG on CKD3 Creatinine peaked at 1.79, likely secondary to overdiuresis and fluid restriction 12/19: creatinine improved to 1.3 recheck BMP this week Hypoglycemia, IDDM2 A1c 9.8 (12/16/21); patient's home insulin regimen is mostly basal (70u BID) with minimal bolus (30u TID) Suspect hypoglycemic episodes are secondary to significantly reduced carb intake while in hospital discussed home insulin with 40u lantus BID to start and 20u of log with meals and checking post prandial, AM and PM bsg placed consult with [facility] management for diabetes management --consider assessing role of adding SGLT-2 inhibitor Will require close PCP follow-up for optimization of home regimen and continued education Lower extremity edema On admission, patient appeared euvolemic, lungs CTABL, CXR without evidence of pulmonary congestion Suspect LE edema secondary to venous stasis rather than CHF; hold further diuresis Weight gain ~11kg weight gain over last 3-4 months; suspect secondary to dietary indiscretion; low suspicion for CHF as above Patient does note orthopnea, though this is likely secondary to OHS continue dietary and lifestyle counseling plan to follow up with Dr. Doherty in March to discuss weight loss options Morbid obesity; BRYNN Obesity/BRYNN likely the etiology of patient's orthopnea Continue CPAP qhs Syncope Patient with one syncopal episode prior to admission, likely due to hypotension resultant from overdiuresis +/- hypoglycemia holding Losartan at discharge, decreased dose of carvedilol T2DM management as above Total Time Total Time Spent Total Time Spent (In Minutes): see attending attestation Discharge Plan Discharge Items Patient Disposition: Home - Self-Care Reason For Visit: NSTEMI Discharge Diagnosis: elevated troponin Activity: Per Instructions section Non-emergency contact: Primary Care Provider and Buttonhole Marker Call non-emergency contact if: your symptoms worsen Follow-up/Referrals: Sara Aragon MD [Primary Care Provider] - Diet: Regular Addtl Attending Provider Instructions: Elevated troponin You were brought into the hospital when it was found that you had an elevated troponin (a marker of injury to your heart). Your kidney function was low and we held off on performing a catheterization (looking at the vessels of the heart for blockage). You will follow up cardiology and have a catheterization as an outpatient. You will need to continue 81 mg aspirin daily after leaving the hospital. Diabetes You were initially on a higher dose of long acting insulin at home (70u twice a day) which we decreased over your stay due to low blood sugars. At home we will have you start at 40 units long acting twice a day and 20 units of short acting insulin with meals based on what you are eating and adjusting from there. You will follow up with our clinic ([facility]) at [facility] and we will connect you with our care managers to help with management of your diabetes. You will also follow up with you incident response specialist as soon as possible. Kidney function You had worsening kidney function potentially due to dehydration. While you were here you had improved kidney function. You will need to follow up with your primary care doctor to continue to follow your kidney function. Follow up appointment: PCP in one week Cardiology in one week Medication changes: - adjust your insulin as above - stop Losartan - decrease the dose of your Carvedilol to 25mg twice a day - start taking Aspirin 81 mg daily - Torsemide 20 mg daily Pending Studies at Discharge: No Stand-Alone Forms: My [facility], Smoking Cessation Medications and DC Order Prescriptions: New aspirin 81 mg Tablet,Delayed Release (Dr/Ec) 81 mg PO QAM Qty: 30 RF: 0 carvedilol 25 mg tablet 25 mg PO BID 30 Days Qty: 60 RF: 0 torsemide 10 mg tablet 20 mg PO DAILY 30 Days Qty: 60 RF: 0 Lantus U-100 Insulin 100 unit/mL solution 40 unit subcut BID Qty: 10 RF: 0 Humalog U-100 Insulin 100 unit/mL cartridge 20 unit subcut TID Qty: 15 RF: 0 Continued venlafaxine [Effexor XR] 150 mg capsule,extended release 24hr 300 mg PO DAILY RF: 0 rosuvastatin [Crestor] 20 mg tablet 40 mg PO HS RF: 0 (DME) OneTouch Verio test strips Strip See Rx Instructions .ROUTE .MEDSUPPLY Qty: 10 RF: 0 (DME) lancets [OneTouch Delica Lancets] 30 gauge misc See Rx Instructions .ROUTE .MEDSUPPLY Qty: 100 RF: 0 cetirizine [Zyrtec] 10 mg Tablet 10 mg PO DAILY RF: 0 ondansetron HCl 4 mg Tablet 4 mg PO TID PRN (Reason: NAUSEA/VOMITING) RF: 0 Discontinued aspirin 325 mg tablet 650 mg PO DAILY PRN (Reason: fever or pain) RF: 0 insulin lispro [Humalog U-100 Insulin] 100 unit/mL solution 0 sliding scale dose SQ DAILY RF: 0 Lantus U-100 Insulin 100 unit/mL solution 70 unit SQ BID RF: 0 torsemide 10 mg tablet See Rx Instructions .ROUTE .COMPLEX RF: 0 carvedilol 25 mg tablet 50 mg PO BID RF: 0 losartan 50 mg tablet 100 mg PO BID RF: 0 Discharge Orders: Discharge Order (Routine); Ordered 12/20/21 Ordered By: Washington Lowery/Other Patient Handouts: Diabetes Serving Portion Sizes, Diabetes: Meal Planning, Diabetes: Ways to Take Medicine Admission Data Admit Date/Time: 12/15/21 21:16 Attending Provider: Maira De La Cruz Admit Provider: Ml Zambrano Primary Care Provider: Sara Aragon Other Providers: Ml Zambrano ; Alberto Saldivar ; Eric Clemons Other Interventions: Discharge Summary Assessment (RN) Last Done: 12/20/21 15:50 Supervising Physician Co-Signing Physician Notes Resident Physician Supervision Note: I independently interviewed and examined the patient and verified the tan history and physical, reviewed labs and image studies and agree with resident Dr. Villatoro findings and care plan. Resident Activity Tracking Resident Involvement: Resident Care Provided Care Provided: Adult Hospital Medicine
== END 2021-12-20 18:05 | disposition home or self-care (01) | DRG 280 ==
LOC: ED 13:39 → 2S 21:16 → SUATTDRO 21:16 → 2S 21:19

== ENCOUNTER 2021-12-27 00:52 | Inpatient (IN) ==
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
[2021-12-27 01:20] LABS: Basophils # (auto) 0.03 K/uL (0-0.2); Basophils % (auto) 0.3 %; Eosinophils # (auto) 0.14 K/uL (0-0.5); Eosinophils % (auto) 1.3 %; Hematocrit (blood only) 33.1 % (37-47); Hemoglobin 10.5 g/dL (12.0-16.0); Immature Granulocytes # (auto) 0.04 K/uL (0.00-0.02); Immature Granulocytes % (auto) 0.4 %; Lymphocytes # (auto) 1.84 K/uL (1.2-3.4); Lymphocytes % (auto) 17.2 %; Mean Corpuscular Hemoglobin 28.1 pg (25-34); Mean Corpuscular Hgb Conc 31.7 g/dL (32-36); Mean Corpuscular Volume 88.5 fL (80-100); Mean Platelet Volume 8.8 fL (7.4-10.4); Monocytes % (auto) 6.6 %; Neutrophils # (auto) 7.93 K/uL (1.4-6.5); Neutrophils % (auto) 74.2 %; Platelet Count 269 K/uL (130-400); RDW Coefficient of Variation 16.7 % (11.5-14.5); RDW Standard Deviation 52.4 fL (36.4-46.3); Red Blood Count 3.74 M/uL (4.2-5.4); White Blood Count 10.68 K/uL (4.8-10.8)
[2021-12-27 01:35] LABS: INR 1.2 (0.9-1.1); Partial Thromboplastin Ratio 0.8; Partial Thromboplastin Time 21.1 Seconds (21.0-31.0); Prothrombin Time 12.2 Seconds (9.0-12.0)
[2021-12-27 01:48] LABS: Alanine Aminotransferase 16 U/L (7-52); Albumin Globulin Ratio 1.4 (0.9-2); Albumin Level 3.7 gm/dl (3.4-5.0); Alkaline Phosphatase 122 U/L (34-104); Anion Gap 9 (3-11); Aspartate Aminotransferase 12 U/L (13-39); BUN Creatinine Ratio 23.8 (10-20); Bilirubin,Total 0.9 mg/dl (0.2-1.0); Blood Urea Nitrogen 36 mg/dl (6-23); Carbon Dioxide 26 mmol/L (21-32); Chloride 101 mmol/L (98-107); Est GFR (African American) 43.7 ml/min; Est GFR (Non-African American) 37.7 ml/min; Globulin 2.7 gm/dl (2.5-4.0); Glucose 172 mg/dl (70-99(Fasting)); Lipase 27 U/L (11-82); Potassium 4.6 mmol/L (3.5-5.1); Sodium 136 mmol/L (136-145); Total Protein 6.4 gm/dl (6.0-8.3)
[2021-12-27 02:01] LABS: Troponin I 0.11 ng/ml (0-0.04)
[2021-12-27] MEDS ORDERED: ASPIRIN CHEW 324 MG PO STA (02:50)
--- NOTE | 2021-12-27 03:29 | Billing Data ---
Date of Service December 27, 2021 Coding Level of Care Code INT OBSERVATION CARE 50M LVL 2
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
[2021-12-27] MEDS ORDERED: GLUCOSE 10 TABS/TUBE PO PRN (07:06)
[2021-12-27] MEDS ORDERED: DEXTROSE 50% 50 ML SYRINGE IV PRN (07:06)
[2021-12-27] MEDS ORDERED: NITROGLYCERIN SL 0.4 MG/TAB TAB SL PRN (07:06)
[2021-12-27] MEDS ORDERED: ONDANSETRON INJ 2 MG/ML 2 ML VIAL IV PRN (07:06)
[2021-12-27] MEDS ORDERED: GLUCOSE 40% GEL 15 GM TUBE PO PRN (07:06)
[2021-12-27] MEDS ORDERED: POLYETHYLENE (MIRALAX) 17 GM PACK PO PRN (07:06)
[2021-12-27] MEDS ORDERED: GLUCAGON FOR INJ 1 MG VIAL SQ PRN (07:06)
[2021-12-27] MEDS ORDERED: ACETAMINOPHEN 325 MG TAB PO PRN (07:06)
[2021-12-27] MEDS ORDERED: CARBOHYDRATES FOR HYPOGLYCEMIA PO PRN (07:06)
--- NOTE | 2021-12-27 07:15 | XRay Report ---
XR chest 1V portable CLINICAL HISTORY: Chest Pain. COMPARISON STUDY: 12/15/2021 TECHNIQUE: 1 view of the chest FINDINGS: Single frontal view of the chest demonstrates the cardiomediastinal silhouette to be within normal li mits. Compared to previous examination, there is again a decreased inspiratory effort. However, there has been interval development of mild central vascular congestion. The lungs are clear of alveolar o pacities. There is no evidence for pleural effusion. There is no evidence for peripheral interstitial edema. There is no acute osseous pathology. IMPRESSION: 1. Decreased inspiration is again seen with interval development of mild central vascular congestion. ACT 112: Negative or not required by law. Electronically signed by: Sharath Chery M.D. 12/27/2021 7:13 AM
[2021-12-27] MEDS ORDERED: ceFAZolin 1000MG 1,000 MG/7.5 ML SYR IV SCH (07:30)
[2021-12-27] MEDS: INSULIN ASPART PER UNIT SC SCH ×4 (07:51→21:19)
[2021-12-27 08:13] LABS: Basophils # (auto) 0.01 K/uL (0-0.2); Basophils % (auto) 0.1 %; Eosinophils # (auto) 0.14 K/uL (0-0.5); Eosinophils % (auto) 1.6 %; Hematocrit (blood only) 33.6 % (37-47); Hemoglobin 10.5 g/dL (12.0-16.0); Immature Granulocytes # (auto) 0.03 K/uL (0.00-0.02); Immature Granulocytes % (auto) 0.3 %; Lymphocytes % (auto) 28.9 %; Mean Corpuscular Hemoglobin 27.6 pg (25-34); Mean Corpuscular Hgb Conc 31.3 g/dL (32-36); Mean Corpuscular Volume 88.4 fL (80-100); Mean Platelet Volume 8.6 fL (7.4-10.4); Monocytes # (auto) 0.47 K/uL (0.11-0.59); Monocytes % (auto) 5.2 %; Neutrophils # (auto) 5.74 K/uL (1.4-6.5); Neutrophils % (auto) 63.9 %; Platelet Count 284 K/uL (130-400); RDW Coefficient of Variation 16.9 % (11.5-14.5); RDW Standard Deviation 53.7 fL (36.4-46.3); White Blood Count 8.99 K/uL (4.8-10.8)
--- NOTE | 2021-12-27 08:15 | Communication Note ---
Date of Service: December 27, 2021 Patient had also complained of fungal groin/buttock rash. She had failed topical therapy and had requested oral diflucan. However, because will be receiving Ancef for the ankle ulcer, she requested that diflucan be not started at this time.
[2021-12-27 08:41] LABS: Troponin I 0.09 ng/ml (0-0.04)
[2021-12-27 08:47] LABS: BUN Creatinine Ratio 23.6 (10-20); Calcium 9.1 mg/dl (8.5-10.1); Creatinine Clr Calc Pharmacy 61.2 ml/min; Est GFR (African American) 46.3 ml/min; Est GFR (Non-African American) 39.9 ml/min; Potassium 4.3 mmol/L (3.5-5.1)
[2021-12-27] MEDS ORDERED: TORSEMIDE 20 MG TAB PO SCH (09:00)
[2021-12-27] MEDS ORDERED: CETIRIZINE HCL 10 MG TABLET PO SCH (09:00)
[2021-12-27] MEDS ORDERED: INSULIN GLARGINE SOLOSTAR 100 UNITS/ML 3 ML PEN SC SCH (09:00)
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
--- NOTE | 2021-12-27 09:25 | Student Report ---
[facility] Med Student Progress Note Date of Service Date of service: December 27, 2021 Subjective Subjective: Corazon is a 56 year old female who presented to the ED 1 AM this morning with chest pain following a hypoglycemic episode last night. At 9pm she checked her blood sugar and it was 97. At 11:30pm she had chest pain rated at a 3/10 with nausea but without diaphoresis. At that time her blood sugar was less than 60. She took glucose tablets and a Boost to bring her sugar up. For the chest pain she took 4 baby aspirins and avoided nitroglycerin due to concern about syncope and hypotension. Recent admission 2 weeks prior for hypoglycemia and syncope. Following that admission her insulin was decreased as well as oral input. Since she had had sugars running 90s-120s and feeling fine. She has had shortness of breath with any movement or exertion and abdominal and leg discomfort from fluid retention. ROS ROS: All systems reviewed & are unremarkable except as noted in HPI & below Physical Exam Physical Exam: General: Alert and oriented x 3. No acute distress Pulm: clear to auscultation, no wheezes/rales/rhonchi, no clubbing Cardiac: regular rate/rhythm, no murmurs/rubs/gallops, pulses strong and equal Abdominal: Nontender, nondistended, soft. Slightly bloated. Integ: L medial malleolus has 2 ~1.5cm pressure ulcers, no drainage. R charcot foot, bandaged A&P A&P: 1. Atypical chest pain 2. DM2 complications 3. Edema Chronic venous stasis Chronic HF preserved EF 4. Charcots foot (right) 5. Pressure ulcer (left)
[2021-12-27] MEDS ORDERED: Nursing to Pharmacy Communication SCH (09:30)
[2021-12-27] MEDS: carvediloL 25 MG TAB PO SCH ×2 (09:58→21:23)
[2021-12-27] MEDS: HEPARIN SOD 5,000 UNIT/0.5 ML VIAL SQ SCH ×2 (09:59→16:48)
[2021-12-27] MEDS ORDERED: SODIUM CHLORIDE 0.9% 1000ML 1,000 ML IV SCH (10:00)
[2021-12-27] MEDS ORDERED: BUMETANIDE 2 MG in SYRINGE 0 ML IV ONE (10:15)
--- NOTE | 2021-12-27 12:33 | Medical Student Progress Note ---
Date of Service December 27, 2021 Assessment & Plan (1) Chest pain: Plan: Atypical chest pain An elevated troponin (.11 on admission, now .09) with a normal EKG indicates possible NSTEMI and this is likely the etiology to her dyspnea on exertion. Cardiology consult placed ([facility]) and recommends catheterization following normalization of fluid status. Chest pain type: unspecified Qualified Code(s): R07.9 - Chest pain, unspecified (2) Diabetes mellitus type 2, uncontrolled, with complications: Plan: Type 2 diabetes complications lantus 15u BID and sliding scale insulin, decreased from 40u lantus due to hypoglycemic episodes likely due to decreased oral input and lifestyle modifications (3) Edema: Plan: Edema Etiology includes chronic venous stasis vs. heart failure exacerbation. Torsemide held due to elevated creatinine. Conisder CT w/o contrast of the lung parenchyma to discern CHD from third space of fluid. (4) Hypertension: Plan: Hypertension Continue carvedilol Hypertension type: essential hypertension Qualified Code(s): I10 - Essential (primary) hypertension (5) Hyperlipidemia: Plan: Hyperlipidemia Continue rosuvastatin Hyperlipidemia type: mixed hyperlipidemia Qualified Code(s): E78.2 - Mixed hyperlipidemia (6) Anxiety: Plan: Anxiety Home venlafaxine held since prior admission (7) Unstageable pressure ulcer of left ankle: Plan: Pressure ulcer left ankle Grew MSSA 4/. Held abx as wound was not draining, but had some subjective fever/chills in the afternoon. Dressed by wound care. (8) Chronic kidney disease: Plan: Chronic kidney disease Baseline ~1.39. Cr 1.51 this admission. Awaiting nephrology referral to assess plans for volume optimization. Plan: FEN/GI: DM2, low Na diet ppx: SCDs. sq heparin code: DNR/DNI dispo: med tele Admission and Anticipated Discharge Date Admission Date: December 27, 2021 Supervising Attestation I personally examined the patient and verified all tan points of history and exam, discussed case, and agree with decision making with Carla Doss MS4 felt immediate belly pain and fluid accumulation in her lower abdomen with fluids - on clarification received less than 100ml total before she requested fluids to be stopped. ARREDONDO. laying more or less flat when i first enter the room and for the first several minutes of conversation. does have some fever s/chills. d/w wound nurse who just changed dressing - thought things overall looked reasonable but (+) infected. having some low sugars at home - really trying to clean up diet. vitals noted nad heent nc at mmm lungs cta b/l no r/r/w good effort skin no rashes no pallor or icterus (+) b/l ongoing LE edema similar to previous. BNP 788 (12/15 was 1141). chest pain - definitely concerning for angina. was for [facility] last week but then was concerned - preferred to have done at tertiary, but given ongoing angina, new wall motion abnormalities, mildly elevated troponin - would definitely prefer this done sooner rather than later. ongoing med management and secondary risk reduction elevated creatinine/volume status - central obesity w BMI 52 definitely makes volume status difficult to discern - although from my assessment i suspect intravascular dry/third spaced more in venous stasis and abdominal fluid (unless truly purely right heart failure) given good oxygenation, clear lungs, BNP being lower than before, previous creatinine a week ago responding to fluids (and previous admission appearing dry/syncopal after having had diuresis raised as outpt for a while prior to admission). would hesitate to say she really got worse with fluid today when she had <100ml given before fluids were stopped. however, respect cardiology opinion that she is volume overloaded as a strong possibility - particularly when she is a very difficult bedside assessment. discussed conundrum w nephro and will definitely appreciate their volume assessment as well. if still hard to discern can also consider CT chest to eval lung parenchyma for pulmonary edema, or follow creatinine on current treatment and trend DM2 - hypoglycemia as outpt - after d/w pt she is continuing to significantly improve her diet - so suspect that low was still insulin/carb mismatch - due to ongoing major diet changes at home. continue to adjust insulin and follow - will just need dynamic management and close f/u as outpt charcot foot / open wound - ongoing local wound care, given fevers/chills this is the most likely source - continue MSSA coverage otherwise as above Subjective Corazon is a 56 year old female who presented to the ED 1 AM this morning with chest pain following a hypoglycemic episode last night. At 9pm she checked her blood sugar and it was 97. At 11:30pm she had chest pain rated at a 3/10 with nausea but without diaphoresis. At that time her blood sugar was less than 60. She took glucose tablets and a Boost to bring her sugar up. For the chest pain she took 4 baby aspirins and avoided nitroglycerin due to concern about syncope and hypotension. Recent admission 2 weeks prior for hypoglycemia and syncope. Following that admission her insulin was decreased as well as oral input. Since she had had sugars running 90s-120s and feeling fine. She has had shortness of breath with any movement or exertion and abdominal and leg discomfort from fluid retention. She had some coughing and nausea with the start of the IV fluids. Review of Systems Review of Systems: All systems reviewed & are unremarkable except as noted in HPI & below Physical Exam Physical Exam: General: Alert and oriented x 3. No acute distress Pulm: clear to auscultation, no wheezes/rales/rhonchi, no clubbing Cardiac: regular rate/rhythm, no murmurs/rubs/gallops, pulses strong and equal Abdominal: Nontender, nondistended, soft. Slightly bloated. Integ: L medial malleolus has 2 ~1.5cm pressure ulcers, no drainage. R charcot foot, bandaged Results & Data ([facility]) Vital Signs (Past 12 Hours) Vital Signs Temp Pulse Pulse Resp BP BP Pulse Ox 12/27/21 11:09 37.7 C H 61 20 94/54 L 97 12/27/21 09:50 64 90/38 L 12/27/21 07:15 37.0 C 62 18 106/69 97 12/27/21 06:25 37.0 C 62 18 106/69 97 12/27/21 06:06 37.6 C H 58 L 20 122/65 94 12/27/21 04:15 37.6 C H 65 22 122/89 94 12/27/21 02:45 37.4 C 68 20 121/52 L 98 12/27/21 00:58 62 20 94 12/27/21 00:55 36.8 C 64 22 143/57 H 94
--- NOTE | 2021-12-27 16:19 | Billing Data ---
Date of Service December 27, 2021 Coding Level of Care Code 18187 Subseq Hosp Care Lvl 3
[2021-12-27] MEDS: ceFAZolin 1000MG 1,000 MG/7.5 ML SYR IV SCH (16:21)
[2021-12-27] MEDS: BUMETANIDE 2 MG in SYRINGE 0 ML IV SCH (16:24)
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
[2021-12-27] MEDS: CETIRIZINE HCL 10 MG TABLET PO SCH (17:13)
[2021-12-27 17:21] LABS: BUN Creatinine Ratio 19.4 (10-20); Calcium 8.9 mg/dl (8.5-10.1); Creatinine Clr Calc Pharmacy 47.4 ml/min; Est GFR (Non-African American) 29.3 ml/min; Potassium 4.1 mmol/L (3.5-5.1)
[2021-12-27] MEDS: INSULIN GLARGINE SOLOSTAR 100 UNITS/ML 3 ML PEN SC SCH (21:19)
[2021-12-27] MEDS: ROSUVASTATIN CALCIUM 20 MG TAB PO SCH (21:23)
[2021-12-28] MEDS: ceFAZolin 1000MG 1,000 MG/7.5 ML SYR IV SCH ×3 (00:02→16:21)
[2021-12-28] MEDS: HEPARIN SOD 5,000 UNIT/0.5 ML VIAL SQ SCH ×4 (00:02→21:00)
--- NOTE | 2021-12-28 03:57 | Communication Note ---
Date of Service: December 28, 2021 Messaged about area of hardened skin at lower abd. On my exam, patient has panniculus 2/2 habitus. On the bottom part of this, near midline and slightly to the right, it is slightly firmer to palpation. With the subtleness of the exam finding, lower suspicion for abscess. There is no erythema. Does not appear to be cellulitis. Does not appear to be hernia. Plan: monitor clinically. Could consider ultrasound to f/u abscess/fluid collection if worsening.
--- NOTE | 2021-12-28 06:16 | Electrocardiogram Report ---
Test Reason : Blood Pressure : / mmHG Vent. Rate : 069 BPM Atrial Rate : 069 BPM P-R Int : 156 ms QRS Dur : 092 ms QT Int : 418 ms P-R-T Axes : 040 -26 148 degrees QTc Int : 447 ms Poor data quality, interpretation may be adversely affected Normal sinus rhythm Low voltage QRS Possible Anterolateral infarct (cited on or before 27-DEC-2021) Abnormal ECG When compared with ECG of 17-DEC-2021 05:40, QRS axis Shifted left Questionable change in initial forces of Anterior leads Confirmed by Cosme Chaudhary ([id number]) on 12/28/2021 6:16:05 AM Referred By: REFERRED SELF Confirmed By:Cosme Chaudhary
[2021-12-28 06:34] LABS: Basophils # (auto) 0.02 K/uL (0-0.2); Basophils % (auto) 0.2 %; Eosinophils # (auto) 0.16 K/uL (0-0.5); Hematocrit (blood only) 31.2 % (37-47); Hemoglobin 9.7 g/dL (12.0-16.0); Immature Granulocytes # (auto) 0.04 K/uL (0.00-0.02); Immature Granulocytes % (auto) 0.5 %; Lymphocytes # (auto) 1.89 K/uL (1.2-3.4); Lymphocytes % (auto) 23.2 %; Mean Corpuscular Hemoglobin 27.6 pg (25-34); Mean Corpuscular Hgb Conc 31.1 g/dL (32-36); Mean Corpuscular Volume 88.6 fL (80-100); Mean Platelet Volume 8.7 fL (7.4-10.4); Monocytes # (auto) 0.63 K/uL (0.11-0.59); Monocytes % (auto) 7.7 %; Neutrophils % (auto) 66.4 %; Platelet Count 277 K/uL (130-400); RDW Standard Deviation 54.4 fL (36.4-46.3); Red Blood Count 3.52 M/uL (4.2-5.4); White Blood Count 8.14 K/uL (4.8-10.8)
[2021-12-28 07:08] LABS: BUN Creatinine Ratio 21.3 (10-20); Calcium 8.6 mg/dl (8.5-10.1); Creatinine Clr Calc Pharmacy 56.4 ml/min; Est GFR (African American) 42.3 ml/min; Est GFR (Non-African American) 36.5 ml/min; Potassium 3.6 mmol/L (3.5-5.1)
--- NOTE | 2021-12-28 07:43 | Cardiology Progress Note ---
Date of Service December 28, 2021 Assessment & Plan (1) Acute on chronic diastolic HF (heart failure): Plan: Markedly hypervolemic on exam. PO diuretics on hold overnight due to recent KHANG last admission. -Continue IV diuresis with Bumex, appreciate nephrology input -Daily STANDING weights -2g sodium restriction, 1500 cc fluid restriction (2) CAD (coronary artery disease): (3) Atypical chest pain: (4) Non-ST elevation (NSTEMI) myocardial infarction: Plan: Recent NSTEMI- patient to be set up for cath at [facility] this week as an outpatient. Now having repeat concerns regarding atypical chest pain. Currently chest pain free- having shortness of breath with exertion, patient markedly volume overloaded as above. Presumed multivessel CAD- will need cardiac cath in the near future, however, would recommend volume management prior. Will need to be cautious due to renal concerns. -Continue medical management at this time with beta genoveva, and statin. -Avoid ALYCIA/ARB due to hypotension and renal disease. -Continue ASA 81 mg daily Plan: Case discussed with Dr. Lunsford. Admission and Anticipated Discharge Date Admission Date: December 27, 2021 Subjective 56 year old female with progressive 13 kg weight gain over the last several weeks. Now with severe abdominal pain and distention due to volume overload and lower extremity edema. Received IV fluids as ordered by the primary team which resulted in worsening abdominal discomfort/distention and shortness of breath. Nephrology consulted- recommended dc of IVF and gentle diuresis with Bumex 3 mg BID. Torsemide on hold. Tele: I&O: -398mL Weight: 143.6 kg >> 140.4 kg (12/28) Scr: 1.51>>1.44>>1.86>>1.55 (12/28) Trop 0.11>>0.09>>0.08 Upon entrance into the room Review of Systems Review of Systems: All systems reviewed & are unremarkable except as noted in HPI & below Physical Exam Physical Exam: General: no acute distress and stated age Head: normocephalic, no masses, lesions, tenderness or abnormalities Eyes: conjunctiva are pink and non-injected, sclera clear Neck: supple, no adenopathy, no bruits, normal jugular venous pulse, no hepatojugular reflux Chest: normal shape and normal respiratory effort Lungs: Fine crackles in BL bases Cardiac Exam: - regular rate & rhythm, no murmurs gallops or rubs - normal S1, normal S2 Pulses: 2(+) throughout Abdomen: Non-tender, distended, obese, taut Extremities: The right foot is bandaged due to foot ulcer Neuro: grossly normal exam Results & Data ([facility]) Vital Signs (Past 12 Hours) Vital Signs Temp Pulse Pulse Pulse Resp BP BP 12/28/21 07:15 37.1 C 61 18 110/73 12/28/21 03:27 37.3 C 62 16 128/75 12/28/21 00:13 59 L 12/27/21 23:02 37.7 C H 60 19 105/65 12/27/21 19:46 38.1 C H 70 18 127/84 Pulse Ox 12/28/21 07:15 94 12/28/21 03:27 93 12/28/21 00:13 12/27/21 23:02 93 12/27/21 19:46 94 Laboratory Results Cardiac Enzymes 12/27/21 12/27/21 12/27/21 Range/Units 01:07 07:57 07:57 AST 12 L (13-39) U/L Troponin I 0.11 H* 0.09 H* (0-0.04) ng/ml B-Natriuretic Peptide 788 H (0-100) pg/ml 12/27/21 Range/Units 16:50 AST (13-39) U/L Troponin I 0.08 H* (0-0.04) ng/ml B-Natriuretic Peptide (0-100) pg/ml Coagulation 12/27/21 Range/Units 07:57 B-Natriuretic Peptide 788 H (0-100) pg/ml CBC 12/27/21 12/28/21 Range/Units 07:57 06:00 WBC 8.99 8.14 (4.8-10.8) K/uL RBC 3.80 L 3.52 L (4.2-5.4) M/uL Hgb 10.5 L 9.7 L (12.0-16.0) g/dL Hct 33.6 L 31.2 L (37-47) % Plt Count 284 277 (130-400) K/uL Neut # (Auto) 5.74 5.40 (1.4-6.5) K/uL Lymph # (Auto) 2.60 1.89 (1.2-3.4) K/uL [place] # (Auto) 0.47 0.63 H (0.11-0.59) K/uL Eos # (Auto) 0.14 0.16 (0-0.5) K/uL Baso # (Auto) 0.01 0.02 (0-0.2) K/uL Comprehensive Metabolic Panel 12/27/21 12/27/21 12/27/21 Range/Units 01:07 07:57 16:50 Sodium 136 138 137 (136-145) mmol/L Potassium 4.6 4.3 4.1 (3.5-5.1) mmol/L Chloride 101 102 103 (98-107) mmol/L Carbon Dioxide 26 28 25 (21-32) mmol/L BUN 36 H 34 H 36 H (6-23) mg/dl Creatinine 1.51 H 1.44 H 1.86 H D (0.6-1.2) mg/dl Glucose 172 H 133 H 225 H (70-99(Fasting)) mg/dl Calcium 9.0 9.1 8.9 (8.5-10.1) mg/dl AST 12 L (13-39) U/L ALT 16 (7-52) U/L Alkaline Phosphatase 122 H (34-104) U/L Total Protein 6.4 (6.0-8.3) gm/dl Albumin 3.7 (3.4-5.0) gm/dl 12/28/21 Range/Units 06:00 Sodium 139 (136-145) mmol/L Potassium 3.6 (3.5-5.1) mmol/L Chloride 104 (98-107) mmol/L Carbon Dioxide 28 (21-32) mmol/L BUN 33 H (6-23) mg/dl Creatinine 1.55 H D (0.6-1.2) mg/dl Glucose 137 H (70-99(Fasting)) mg/dl Calcium 8.6 (8.5-10.1) mg/dl AST (13-39) U/L ALT (7-52) U/L Alkaline Phosphatase (34-104) U/L Total Protein (6.0-8.3) gm/dl Albumin (3.4-5.0) gm/dl Intake and Output 12/27/21 12/28/21 12/28/21 22:59 06:59 14:59 Intake Total 770 / 1201.667 350 / 1201.667 Output Total 1600 / 1600 0 / 1600 Balance -830 / -398.333 350 / -398.333 Intake: Oral 770 / 1120 350 / 1120 Output: Urine 800 / 800 0 / 800 Other 800 / 800 Other: # Unmeasured Voids 1 Weight 140.4 kg Weight Measurement Method Standing Scale
[2021-12-28] MEDS: ASPIRIN 81 MG CHEW PO SCH (07:58)
[2021-12-28] MEDS: carvediloL 25 MG TAB PO SCH ×2 (07:58→20:56)
[2021-12-28] MEDS: INSULIN GLARGINE SOLOSTAR 100 UNITS/ML 3 ML PEN SC SCH ×2 (07:59→20:54)
[2021-12-28] MEDS: INSULIN ASPART PER UNIT SC SCH ×4 (08:09→20:54)
[2021-12-28] MEDS ORDERED: diphenhydrAMINE Capsule 25 MG CAP PO ONE (08:35)
[2021-12-28] MEDS ORDERED: diphenhydrAMINE Capsule 25 MG CAP PO PRN (08:41)
--- NOTE | 2021-12-28 10:06 | Cardiology Progress Note ---
Date of Service December 28, 2021 Assessment & Plan (1) CKD (chronic kidney disease) stage 3, GFR 30-59 ml/min: (2) Acute on chronic respiratory failure with hypoxia: (3) CAD (coronary artery disease): (4) Chronic heart failure with preserved ejection fraction (HFpEF): (5) Elevated troponin: Plan: Please read the subjective portion of my note. There is no plan for a heart catheterization at this time. Unless the patient's clinical course changes, the risk versus benefit favors medical treatment. We can always do noninvasive testing if indicated as an outpatient. The patient's main problem is volume overload which is most likely due to chronic kidney disease and can be managed as indicated by nephrology with diuretics. She has chronically elevated troponin due to chronic renal insufficiency. Also, her creatinine may elevate as more fluid is taken off and she goes to dry weight however, that may be her baseline creatinine. Admission and Anticipated Discharge Date Admission Date: December 27, 2021 Subjective This is a 56-year-old female whom I saw several weeks ago during a previous hospital admission. She is a long standing diabetic. Her first admission was prompted by which she describes as a hypoglycemic event where she became very diaphoretic and felt her blood sugars were low. She lost consciousness and was on the floor for several hours before being discovered and brought to the hospital. Originally comparing her creatinine to those completed a year ago during another hospital admission there was considered to be an elevation however, at this point I believe her creatinines were at baseline. She is entered the phase of chronic kidney disease due to her diabetes. She also had an elevation in her troponins which I believe is chronic and related to her underlying renal insufficiency and not due to to ACS. She did have wall motion abnormalities on a resting echocardiogram which may indicate ischemic heart disease and ischemic cardiomyopathy but her overall LV function was fairly well- preserved. Consideration was given for a heart catheterization but after several days her creatinine did not improve and with long discussion in a shared decision-making process the patient was allowed to be treated medically and discharged home for consideration of a possible heart [place] in the [place] [facility] [place] has been readmitted to the hospital with volume overload. I believe this is principally due to chronic kidney disease and not due to pump failure from CHF. Nephrology consult is appreciated and I would continue the gentle diuresis. Review of Systems Review of Systems: Review of Systems: See HPI for pertinent positives. All other 10 point review of systems are negative. Physical Exam Physical Exam: General: no acute distress and stated age Head: normocephalic, no masses, lesions, tenderness or abnormalities Eyes: conjunctiva are pink and non-injected, sclera clear Neck: supple, no adenopathy, no bruits, normal jugular venous pulse, no hepatojugular reflux Chest: normal shape and normal respiratory effort Lungs: clear to auscultation and percussion Cardiac Exam: - regular rate & rhythm, no murmurs gallops or rubs - normal S1, normal S2 Pulses: 2(+) throughout Abdomen: abdomen obese, soft, non-tender, no abnormal masses and no hepatosplenomegaly Musculoskeletal: no gait disturbance, no joint inflammation, no deforming arthritis Extremities: no edema and no cyanosis Neuro: Hard edema of the lower extremities bilaterally Results & Data ([facility]) Vital Signs (Past 12 Hours) Vital Signs Temp Pulse Pulse Resp BP BP Pulse Ox 12/28/21 07:15 37.1 C 61 18 110/73 94 12/28/21 03:27 37.3 C 62 16 128/75 93 12/28/21 00:13 59 L 12/27/21 23:02 37.7 C H 60 19 105/65 93 Laboratory Results Laboratory Results - last 24 hr 12/27/21 12/27/21 12/27/21 11:06 16:08 16:50 WBC RBC Hgb Hct MCV MCH MCHC RDW Std Deviation RDW Coeff of Anai Plt Count MPV Immature Gran % (Auto) Neut % (Auto) Lymph % (Auto) [place] % (Auto) Eos % (Auto) Baso % (Auto) Neut # (Auto) Lymph # (Auto) [place] # (Auto) Eos # (Auto) Baso # (Auto) Immature Gran # (Auto) Sodium Potassium Chloride Carbon Dioxide Anion Gap BUN Creatinine Est Cr Clr Drug Dosing Est GFR ( Amer) Est GFR (Non-Af Amer) BUN/Creatinine Ratio Glucose POC Glucose 161 H 230 H Calcium Troponin I 0.08 H* 12/27/21 12/27/21 12/28/21 16:50 20:21 05:24 WBC RBC Hgb Hct MCV MCH MCHC RDW Std Deviation RDW Coeff of Anai Plt Count MPV Immature Gran % (Auto) Neut % (Auto) Lymph % (Auto) [place] % (Auto) Eos % (Auto) Baso % (Auto) Neut # (Auto) Lymph # (Auto) [place] # (Auto) Eos # (Auto) Baso # (Auto) Immature Gran # (Auto) Sodium 137 Potassium 4.1 Chloride 103 Carbon Dioxide 25 Anion Gap 9 BUN 36 H Creatinine 1.86 H D Est Cr Clr Drug Dosing 47.4 Est GFR ( Amer) 34.0 Est GFR (Non-Af Amer) 29.3 BUN/Creatinine Ratio 19.4 Glucose 225 H POC Glucose 178 H 131 H Calcium 8.9 Troponin I 12/28/21 12/28/21 12/28/21 06:00 06:00 07:15 WBC 8.14 RBC 3.52 L Hgb 9.7 L Hct 31.2 L MCV 88.6 MCH 27.6 MCHC 31.1 L RDW Std Deviation 54.4 H RDW Coeff of Anai 17.0 H Plt Count 277 MPV 8.7 Immature Gran % (Auto) 0.5 Neut % (Auto) 66.4 Lymph % (Auto) 23.2 [place] % (Auto) 7.7 Eos % (Auto) 2.0 Baso % (Auto) 0.2 Neut # (Auto) 5.40 Lymph # (Auto) 1.89 [place] # (Auto) 0.63 H Eos # (Auto) 0.16 Baso # (Auto) 0.02 Immature Gran # (Auto) 0.04 H Sodium 139 Potassium 3.6 Chloride 104 Carbon Dioxide 28 Anion Gap 7 BUN 33 H Creatinine 1.55 H D Est Cr Clr Drug Dosing 56.4 Est GFR ( Amer) 42.3 Est GFR (Non-Af Amer) 36.5 BUN/Creatinine Ratio 21.3 H Glucose 137 H POC Glucose 129 H Calcium 8.6 Troponin I Medications Administered Current Inpatient Medications Acetaminophen (Acetaminophen 325 Mg Tab) 650 mg PO Q4H PRN PRN Reason: Pain or Fever Stop: 01/26/22 07:05 Aspirin (Aspirin 81 Mg Chew) 81 mg PO DAILY [facility] Stop: 01/27/22 08:59 Last Admin: 12/28/21 07:58 Dose: 81 mg Documented by: Carvedilol (Carvedilol 25 Mg Tab) 25 mg PO BID [facility] Stop: 01/26/22 08:59 Last Admin: 12/28/21 07:58 Dose: 25 mg Documented by: Cetirizine HCl (Cetirizine Hcl 10 Mg Tablet) 10 mg PO HS [facility] Stop: 01/26/22 20:59 Last Admin: 12/27/21 17:13 Dose: 10 mg Documented by: Dextrose (Dextrose 50% 50 Ml Syringe) 25 - 50 ml IV UD PRN; Protocol PRN Reason: Hypoglycemia Protocol Stop: 01/26/22 07:05 Diphenhydramine HCl (Diphenhydramine Capsule 25 Mg Cap) 25 mg PO Q6H PRN PRN Reason: Itching Stop: 01/27/22 08:40 Glucagon (Glucagon For Inj 1 Mg Vial) 1 mg SQ UD PRN; Protocol PRN Reason: Hypoglycemia Protocol Stop: 01/26/22 07:05 Glucose (Glucose 10 Tabs/Tube) 4 - 8 tabs PO UD PRN; Protocol PRN Reason: Hypoglycemia Protocol Stop: 01/26/22 07:05 Glucose (Glucose 40% Gel 15 Gm Tube) 15 - 30 gm PO UD PRN; Protocol PRN Reason: Hypoglycemia Protocol Stop: 01/26/22 07:05 Heparin Sodium (Porcine) (Heparin Sod 5,000 Unit/0.5 Ml Vial) 5,000 units SQ Q8 [facility] Stop: 01/26/22 08:59 Last Admin: 12/28/21 07:56 Dose: 5,000 units Documented by: Bumetanide 2 mg/ Syringe 8 mls @ 4 mls/min IV BID@0900,1700 [facility] Stop: 01/26/22 16:59 Last Admin: 12/27/21 16:24 Dose: 4 mls/min Documented by: Cefazolin Sodium (Ancef 1000mg) 1,000 mg in 7.5 mls @ 2.5 mls/min IV Q8H [facility] Stop: 01/03/22 15:59 Last Admin: 12/28/21 07:53 Dose: 2.5 mls/min Documented by: Insulin Aspart (Insulin Aspart Per Unit) 0 units SC ACHS [facility] Stop: 01/26/22 07:29 Last Admin: 12/28/21 08:09 Dose: 4 units Documented by: Insulin Glargine (Insulin Glargine Solostar 100 Units/Ml 3 Ml Pen) 20 units SC BID [facility] Stop: 01/26/22 20:59 Last Admin: 12/28/21 07:59 Dose: 20 units Documented by: Miscellaneous (Carbohydrates For Hypoglycemia ) 15 - 30 gm PO UD PRN PRN Reason: Hypoglycemia Protocol Stop: 01/26/22 07:05 Nitroglycerin (Nitroglycerin Sl 0.4 Mg/Tab Tab) 0.4 mg SL UD PRN PRN Reason: Chest Pain Stop: 01/26/22 07:05 Ondansetron HCl (Ondansetron Inj 2 Mg/Ml 2 Ml Vial) 4 mg IV Q6H PRN PRN Reason: Nausea Stop: 01/26/22 07:05 Polyethylene Glycol (Polyethylene (Miralax) 17 Gm Pack) 17 gm PO DAILY PRN PRN Reason: Constipation Stop: 01/26/22 07:05 Rosuvastatin Calcium (Rosuvastatin Calcium 20 Mg Tab) 40 mg PO [facility] Stop: 01/26/22 20:59 Last Admin: 12/27/21 21:23 Dose: 40 mg Documented by: Torsemide (Torsemide 20 Mg Tab) 20 mg PO QAM [facility] Stop: 01/26/22 08:59 Last Admin: 12/27/21 09:59 Dose: Not Given Documented by:
[2021-12-28] MEDS: BUMETANIDE 2 MG in SYRINGE 0 ML IV SCH ×2 (10:37→16:25)
--- NOTE | 2021-12-28 13:21 | Nephrology Progress Note ---
Date of Service December 28, 2021 Assessment & Plan (1) CKD (chronic kidney disease) stage 3, GFR 30-59 ml/min: Plan: Improving acute on chronic renal failure. Baseline creatinine 1.3-1.4; 1460 mg protein in October w/ chronic nephritic sediment. high risk for complications related to ckd -check blood, urine cxs given t max on December 27: So far no growth to date -gentle diuresis as above -avoid nephrotoxins -daily bmp Will need outpatient nephrology follow-up after discharge (2) Acute on chronic diastolic HF (heart failure): Plan: needs gentle diuresis > agree w/ current Bumex dosing. Hold torsemide -Daily BMP -agree w/ fluid limint, <2 gm Na -needs daily standing weight to continue pls No cardiac cath planned Admission and Anticipated Discharge Date Admission Date: December 27, 2021 Subjective No interval events clinically apart from some concerns about indurated area on her anterior abdominal wall. Voiding without difficulty. Denies worsening shortness of breath, nausea vomiting, orthopnea, worsening edema. No chest pain Review of Systems Review of Systems: All systems reviewed & are unremarkable except as noted in Subjective Physical Exam Constitutional: well developed and well nourished Eyes: EOM intact bilaterally ENMT: Ears: no external ear abnormality Nose: no external nose abnormality Mouth: + dry oral mucous membranes Neck: no nuchal rigidity Respiratory: normal respiratory effort Auscultation: + diminished lung sounds Cardiovascular: Rate/Rhythm: regular rate and regular rhythm Heart Sounds: normal S1 and normal S2 Extremities: + edema (1-2+ BLE) Gastrointestinal (Abdomen): Inspection/Auscultation: normal bowel sounds Percussion/Palpation: abdomen soft; abdomen nontender Musculoskeletal: Extremities: strength 5/5 throughout Skin: no rashes, warm and dry Trauma: + evidence of skin trauma (Right foot wrapped) Neurologic: Moves all extremities, fluent speech, no tremor Psychiatric: Orientation: oriented x 3 Results & Data ([facility]) Vital Signs (Past 12 Hours) Vital Signs Temp Pulse Resp BP Pulse Ox 12/28/21 12:18 37.4 C 62 18 106/69 99 12/28/21 07:15 37.1 C 61 18 110/73 94 12/28/21 03:27 37.3 C 62 16 128/75 93 Laboratory Results 12/28/21 06:00 12/28/21 06:00
[2021-12-28] MEDS ORDERED: FLUCONAZOLE 50 MG TAB PO ONE (15:12)
--- NOTE | 2021-12-28 16:58 | Medical Student Progress Note ---
Date of Service December 28, 2021 Assessment & Plan (1) Chest pain: Plan: An elevated troponin (.11 on admission, now .09) with a normal EKG indicates possible NSTEMI and this is likely the etiology to her dyspnea on exertion. Discussed with cardiology who favor waiting for noninvasive testing in the outpatient setting or cardiac cath if her clinical condition acutely changes. Chest pain type: unspecified Qualified Code(s): R07.9 - Chest pain, unspecified (2) Diabetes mellitus type 2, uncontrolled, with complications: Plan: Lantus 15u BID and sliding scale insulin, decreased from 40u lantus due to hypoglycemic episodes likely due to decreased oral input and lifestyle modifications (3) Edema: Plan: Etiology includes chronic venous stasis vs. heart failure exacerbation. Fluid likely due to third-spacing into the sub-q of the abdomen and subjective orthopnea can be attributed to pressure from abdomen when supine. Continuing gentle diuresis with bumex but anticipate we will reach a limit for improvement and increase in her creatinine that will indicate we need to stop the diuretics. Considering adding an SGLT2 inhibitor to both (1) improve sugar control and (2) aid in the diuresis. Possible panniculus of the abdomen. (4) Hypertension: Plan: Continue carvedilol Hypertension type: essential hypertension Qualified Code(s): I10 - Essential (primary) hypertension (5) Hyperlipidemia: Plan: Continue rosuvastatin Hyperlipidemia type: mixed hyperlipidemia Qualified Code(s): E78.2 - Mixed hyperlipidemia (6) Anxiety: Plan: Home venlafaxine held since prior admission (7) Unstageable pressure ulcer of left ankle: Plan: Grew MSSA 4/6. Although wound is not draining subjective fever/chills in the afternoon, so Ancef was restarted. Diflucan will be included with the next dose. (8) Chronic kidney disease: Plan: Baseline ~1.39. Cr 1.55 currently. Continue to monitor bmp Plan: FEN/GI: DM2, low Na diet ppx: SCDs. sq heparin code: DNR/DNI dispo: med tele Admission and Anticipated Discharge Date Admission Date: December 27, 2021 Supervising Attestation I personally examined the patient and verified all tan points of history and exam, discussed case, and agree with decision making with Carla Doss MS4 feeling somewhat better except notes yeast skin rash that she commonly gets w abx. breathing a bit better. vitals noted nad heent nc at mmm breathing unlabored no accessory muscles good effort skin no pallor or icterus neuro no focal deficits chest pain - for ongoing eval/management/med management for presumed CAD. LHC once deemed more feasible, likely at tertiary elevated creatinine/volume status - central obesity w BMI 52 definitely makes volume status difficult to discern -seems most c/w venous stasis related fluids. fortunately is showing some improvement with diuresis although will have to follow closely as i strongly suspect she'll have a rise in creatinine from intravascular contraction before we're able to mobilize all of her third spaced fluids; elevation/compression as possible will help DM2 - continue insulins charcot foot / open wound - ongoing local wound care, and continue MSSA coverage otherwise as above Subjective Corazon is a 56 year old female who presented to the ED 2 days ago with chest pain following a hypoglycemic episode. Following the Bumex she felt more comfortable but still had fullness in the belly and swelling in the legs. She had some itching with the Bumex but it was relieved with Zyrtec. This did not reoccur with the next dose of Bumex. She has had some lightheadedness. She had slightly elevated sugars in the 200s yesterday but her Lantus was increased and she has been running in the 120s to high 100s today. Her chest pain has been minimal but she continues to have shortness of breath exertion and subjective orthopnea. 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 Discussed need for cardiac catheterization and will she does not want to have it done, expressed concerns of the costs of having it done outpatient as well as the plausibility of her going through with it. Review of Systems Review of Systems: All systems reviewed & are unremarkable except as noted in HPI & below Physical Exam Physical Exam: General: Alert and oriented x 3. No acute distress Pulm: clear to auscultation, no wheezes/rales/rhonchi, no clubbing Cardiac: regular rate/rhythm, no murmurs/rubs/gallops, pulses strong and equal Abdominal: Nontender, nondistended, soft. Slightly bloated. Hard, nontender area in the lower mid abdomen. Integ: L medial malleolus has 2 ~1.5cm pressure ulcers, no warmth. R charcot foot, bandaged Results & Data ([facility]) Vital Signs (Past 12 Hours) Vital Signs Temp Pulse Resp BP BP Pulse Ox 12/28/21 16:06 38.3 C H 62 18 105/69 97 12/28/21 12:18 37.4 C 62 18 106/69 99 12/28/21 07:15 37.1 C 61 18 110/73 94
--- NOTE | 2021-12-28 18:26 | Billing Data ---
Date of Service December 28, 2021 Coding Level of Care Code 92101 Subseq Hosp Care Lvl 3
[2021-12-28] MEDS: CETIRIZINE HCL 10 MG TABLET PO SCH (20:56)
[2021-12-28] MEDS: ROSUVASTATIN CALCIUM 20 MG TAB PO SCH (20:57)
[2021-12-29] MEDS: ceFAZolin 1000MG 1,000 MG/7.5 ML SYR IV SCH ×3 (00:14→16:55)
[2021-12-29] MEDS: HEPARIN SOD 5,000 UNIT/0.5 ML VIAL SQ SCH ×2 (05:42→16:51)
[2021-12-29 06:45] LABS: Basophils # (auto) 0.02 K/uL (0-0.2); Basophils % (auto) 0.3 %; Eosinophils # (auto) 0.18 K/uL (0-0.5); Eosinophils % (auto) 2.3 %; Hematocrit (blood only) 33.1 % (37-47); Hemoglobin 10.2 g/dL (12.0-16.0); Immature Granulocytes # (auto) 0.01 K/uL (0.00-0.02); Immature Granulocytes % (auto) 0.1 %; Lymphocytes # (auto) 1.54 K/uL (1.2-3.4); Mean Corpuscular Hemoglobin 27.4 pg (25-34); Mean Corpuscular Hgb Conc 30.8 g/dL (32-36); Mean Platelet Volume 8.6 fL (7.4-10.4); Monocytes # (auto) 0.65 K/uL (0.11-0.59); Monocytes % (auto) 8.5 %; Neutrophils # (auto) 5.29 K/uL (1.4-6.5); Neutrophils % (auto) 68.8 %; Platelet Count 295 K/uL (130-400); RDW Coefficient of Variation 16.7 % (11.5-14.5); RDW Standard Deviation 54.1 fL (36.4-46.3); Red Blood Count 3.72 M/uL (4.2-5.4); White Blood Count 7.69 K/uL (4.8-10.8)
[2021-12-29 07:06] LABS: BUN Creatinine Ratio 22.3 (10-20); Calcium 9.2 mg/dl (8.5-10.1); Creatinine Clr Calc Pharmacy 55.6 ml/min; Est GFR (African American) 41.7 ml/min; Potassium 4.1 mmol/L (3.5-5.1)
[2021-12-29] MEDS: INSULIN ASPART PER UNIT SC SCH ×3 (08:17→16:55)
[2021-12-29] MEDS: INSULIN GLARGINE SOLOSTAR 100 UNITS/ML 3 ML PEN SC SCH (08:17)
[2021-12-29] MEDS: BUMETANIDE 2 MG in SYRINGE 0 ML IV SCH ×2 (08:18→16:50)
[2021-12-29] MEDS: POTASSIUM CHLORIDE CRTAB 20 MEQ TABCR PO SCH ×2 (08:18→08:26)
[2021-12-29] MEDS: ASPIRIN 81 MG CHEW PO SCH (08:18)
[2021-12-29] MEDS: carvediloL 25 MG TAB PO SCH (08:18)
--- NOTE | 2021-12-29 09:42 | Cardiology Progress Note ---
Date of Service December 29, 2021 Assessment & Plan (1) CKD (chronic kidney disease) stage 3, GFR 30-59 ml/min: (2) Acute on chronic respiratory failure with hypoxia: (3) CAD (coronary artery disease): (4) Chronic heart failure with preserved ejection fraction (HFpEF): Plan: I had a long discussion with the patient again today. In a shared decision- making process the patient does not want a heart catheterization and wants to continue with medical therapy. Considering risk versus benefit, I do not believe that this is a bad decision. As an outpatient we can consider noninvasive testing and if that testing indicates high risk disease, then refer for cath. The patient is agreeable to this plan. Admission and Anticipated Discharge Date Admission Date: December 27, 2021 Subjective The patient wants to go home. She has had no chest pain. Overall she is feeling better. Review of Systems Review of Systems: Review of Systems: See HPI for pertinent positives. All other 10 point review of systems are negative. Physical Exam Physical Exam: General: no acute distress and stated age Head: normocephalic, no masses, lesions, tenderness or abnormalities Eyes: conjunctiva are pink and non-injected, sclera clear Neck: supple, no adenopathy, no bruits, normal jugular venous pulse, no hepatojugular reflux Chest: normal shape and normal respiratory effort Lungs: clear to auscultation and percussion Cardiac Exam: - regular rate & rhythm, no murmurs gallops or rubs - normal S1, normal S2 Pulses: 2(+) throughout Abdomen: abdomen obese, soft, non-tender, no abnormal masses and no hepatosplenomegaly Musculoskeletal: no gait disturbance, no joint inflammation, no deforming arthritis Extremities: Right foot is bandaged. Neuro: Hard edema of the lower extremities bilaterally Results & Data ([facility]) Vital Signs (Past 12 Hours) Vital Signs Temp Pulse Pulse Resp BP BP Pulse Ox 12/29/21 08:00 37.2 C 69 18 128/63 94 12/29/21 03:39 67 12/29/21 03:22 37.8 C H 64 19 121/69 95 12/28/21 23:14 37.2 C 66 18 109/60 93 Laboratory Results Laboratory Results - last 24 hr 12/28/21 12/28/21 12/28/21 11:31 16:06 20:00 WBC RBC Hgb Hct MCV MCH MCHC RDW Std Deviation RDW Coeff of Anai Plt Count MPV Immature Gran % (Auto) Neut % (Auto) Lymph % (Auto) [place] % (Auto) Eos % (Auto) Baso % (Auto) Neut # (Auto) Lymph # (Auto) [place] # (Auto) Eos # (Auto) Baso # (Auto) Immature Gran # (Auto) Sodium Potassium Chloride Carbon Dioxide Anion Gap BUN Creatinine Est Cr Clr Drug Dosing Est GFR ( Amer) Est GFR (Non-Af Amer) BUN/Creatinine Ratio Glucose POC Glucose 191 H 201 H 201 H Calcium 12/29/21 12/29/21 12/29/21 06:21 06:21 07:35 WBC 7.69 RBC 3.72 L Hgb 10.2 L Hct 33.1 L MCV 89.0 MCH 27.4 MCHC 30.8 L RDW Std Deviation 54.1 H RDW Coeff of Anai 16.7 H Plt Count 295 MPV 8.6 Immature Gran % (Auto) 0.1 Neut % (Auto) 68.8 Lymph % (Auto) 20.0 [place] % (Auto) 8.5 Eos % (Auto) 2.3 Baso % (Auto) 0.3 Neut # (Auto) 5.29 Lymph # (Auto) 1.54 [place] # (Auto) 0.65 H Eos # (Auto) 0.18 Baso # (Auto) 0.02 Immature Gran # (Auto) 0.01 Sodium 140 Potassium 4.1 Chloride 103 Carbon Dioxide 31 Anion Gap 6 BUN 35 H Creatinine 1.57 H Est Cr Clr Drug Dosing 55.6 Est GFR ( Amer) 41.7 Est GFR (Non-Af Amer) 36.0 BUN/Creatinine Ratio 22.3 H Glucose 128 H POC Glucose 129 H Calcium 9.2 Medications Administered Current Inpatient Medications Acetaminophen (Acetaminophen 325 Mg Tab) 650 mg PO Q4H PRN PRN Reason: Pain or Fever Stop: 01/26/22 07:05 Aspirin (Aspirin 81 Mg Chew) 81 mg PO DAILY [facility] Stop: 01/27/22 08:59 Last Admin: 12/29/21 08:18 Dose: 81 mg Documented by: Carvedilol (Carvedilol 25 Mg Tab) 25 mg PO BID [facility] Stop: 01/26/22 08:59 Last Admin: 12/29/21 08:18 Dose: 25 mg Documented by: Cetirizine HCl (Cetirizine Hcl 10 Mg Tablet) 10 mg PO HS [facility] Stop: 01/26/22 20:59 Last Admin: 12/28/21 20:56 Dose: 10 mg Documented by: Dextrose (Dextrose 50% 50 Ml Syringe) 25 - 50 ml IV UD PRN; Protocol PRN Reason: Hypoglycemia Protocol Stop: 01/26/22 07:05 Diphenhydramine HCl (Diphenhydramine Capsule 25 Mg Cap) 25 mg PO Q6H PRN PRN Reason: Itching Stop: 01/27/22 08:40 Glucagon (Glucagon For Inj 1 Mg Vial) 1 mg SQ UD PRN; Protocol PRN Reason: Hypoglycemia Protocol Stop: 01/26/22 07:05 Glucose (Glucose 10 Tabs/Tube) 4 - 8 tabs PO UD PRN; Protocol PRN Reason: Hypoglycemia Protocol Stop: 01/26/22 07:05 Glucose (Glucose 40% Gel 15 Gm Tube) 15 - 30 gm PO UD PRN; Protocol PRN Reason: Hypoglycemia Protocol Stop: 01/26/22 07:05 Heparin Sodium (Porcine) (Heparin Sod 5,000 Unit/0.5 Ml Vial) 5,000 units SQ Q8 [facility] Stop: 01/26/22 08:59 Last Admin: 12/29/21 05:42 Dose: 5,000 units Documented by: Bumetanide 2 mg/ Syringe 8 mls @ 4 mls/min IV BID@0900,1700 [facility] Stop: 01/26/22 16:59 Last Admin: 12/29/21 08:18 Dose: 4 mls/min Documented by: Cefazolin Sodium (Ancef 1000mg) 1,000 mg in 7.5 mls @ 2.5 mls/min IV Q8H [facility] Stop: 01/03/22 15:59 Last Admin: 12/29/21 08:26 Dose: 2.5 mls/min Documented by: Insulin Aspart (Insulin Aspart Per Unit) 0 units SC ACHS [facility] Stop: 01/26/22 07:29 Last Admin: 12/29/21 08:17 Dose: 4 units Documented by: Insulin Glargine (Insulin Glargine Solostar 100 Units/Ml 3 Ml Pen) 20 units SC BID [facility] Stop: 01/26/22 20:59 Last Admin: 12/29/21 08:17 Dose: 20 units Documented by: Miscellaneous (Carbohydrates For Hypoglycemia ) 15 - 30 gm PO UD PRN PRN Reason: Hypoglycemia Protocol Stop: 01/26/22 07:05 Nitroglycerin (Nitroglycerin Sl 0.4 Mg/Tab Tab) 0.4 mg SL UD PRN PRN Reason: Chest Pain Stop: 01/26/22 07:05 Ondansetron HCl (Ondansetron Inj 2 Mg/Ml 2 Ml Vial) 4 mg IV Q6H PRN PRN Reason: Nausea Stop: 01/26/22 07:05 Last Admin: 12/29/21 00:20 Dose: 4 mg Documented by: Polyethylene Glycol (Polyethylene (Miralax) 17 Gm Pack) 17 gm PO DAILY PRN PRN Reason: Constipation Stop: 01/26/22 07:05 Last Admin: 12/28/21 14:04 Dose: 17 gm Documented by: Potassium Chloride (Potassium Chloride Crtab 20 Meq Tabcr) 20 meq PO QAM [facility] Stop: 01/28/22 08:59 Last Admin: 12/29/21 08:26 Dose: Not Given Documented by: Rosuvastatin Calcium (Rosuvastatin Calcium 20 Mg Tab) 40 mg PO HS [facility] Stop: 01/26/22 20:59 Last Admin: 12/28/21 20:57 Dose: 40 mg Documented by: Torsemide (Torsemide 20 Mg Tab) 20 mg PO QAM [facility] Stop: 01/26/22 08:59 Last Admin: 12/27/21 09:59 Dose: Not Given Documented by:
--- NOTE | 2021-12-29 13:43 | Medical Student Progress Note ---
Date of Service December 29, 2021 Assessment & Plan (1) Chest pain: Plan: An elevated troponin (.11 on admission, now .09) with a normal EKG indicates possible NSTEMI and this is likely the etiology to her dyspnea on exertion. Discussed with cardiology who favor waiting for noninvasive testing in the outpatient setting or cardiac cath if her clinical condition acutely changes. Current chest pain seems more likely to be musculoskeletal in etiology rather than cardiac as it is localized to one location and is not similar to her intial chest pain. Chest pain type: unspecified Qualified Code(s): R07.9 - Chest pain, unspecified (2) Diabetes mellitus type 2, uncontrolled, with complications: Plan: Lantus 15u BID and sliding scale insulin, decreased from 40u lantus due to hypoglycemic episodes likely due to decreased oral input and lifestyle modifications. Discussed soft carb counting and switching to 50u bolus for ome and 15u at each meal. (3) Edema: Plan: Etiology includes chronic venous stasis vs. heart failure exacerbation. Fluid likely due to third-spacing into the sub-q of the abdomen and subjective orthopnea can be attributed to pressure from abdomen when supine. Continuing gentle diuresis with bumex but anticipate we will reach a limit for improvement and increase in her creatinine that will indicate we need to stop the diuretics. Considering adding an SGLT2 inhibitor to both (1) improve sugar control and (2) aid in the diuresis. Possible panniculus of the abdomen. Plan for weakly labs at home to monitor creatine. (4) Hypertension: Plan: Continue carvedilol Hypertension type: essential hypertension Qualified Code(s): I10 - Essential (primary) hypertension (5) Hyperlipidemia: Plan: Continue rosuvastatin Hyperlipidemia type: mixed hyperlipidemia Qualified Code(s): E78.2 - Mixed hyperlipidemia (6) Anxiety: Plan: Home venlafaxine held since prior admission (7) Unstageable pressure ulcer of left ankle: Plan: Grew MSSA 4/6. Although wound is not draining subjective fever/chills in the afternoon, so Ancef was restarted. Diflucan will be included with the next dose. (8) Chronic kidney disease: Plan: Baseline ~1.39. Cr 1.57 currently. Continue to monitor bmp Plan: FEN/GI: DM2, low Na diet ppx: SCDs. sq heparin code: DNR/DNI dispo: med tele Admission and Anticipated Discharge Date Admission Date: December 27, 2021 Supervising Attestation I personally examined the patient and verified all tan points of history and exam, discussed case, and agree with decision making with Carla Doss MS4 Noman Chandra is a 56 year old female on hospital day 3 presenting initially with chest pain and hypoglycemia with a recent hospital admission for chest pain. Today she reports improvement in feelings of fullness in her belly and the swelling in her legs. She still will get occasional "twinges" in her chest, unassociated with exertion. She continues to have dyspnea on exertion but finds this has improved since her admission. She continues to have itchy rashy skin in the groin that frequently occurs for her when she is on the antibiotics. She also awoke with a tender left eye, drainage and crusting. She continues to run low grade fevers with chills. This has been going on for about a month and she does not note any associate with medications or time of day. Review of Systems Review of Systems: All systems reviewed & are unremarkable except as noted in HPI & below Physical Exam Physical Exam: General: Alert and oriented x 3. No acute distress HEENT: Lower eyelid reddness of left eye, some crushing in tear duct Pulm: clear to auscultation, no wheezes/rales/rhonchi, no clubbing Cardiac: regular rate/rhythm, no murmurs/rubs/gallops, pulses strong and equal Abdominal: Nontender, nondistended, soft. Slightly bloated. Hard, nontender area in the lower mid abdomen. Integ: L medial malleolus has 2 ~1.5cm pressure ulcers, no warmth. R charcot foot, bandaged Results & Data ([facility]) Vital Signs (Past 12 Hours) Vital Signs Temp Pulse Pulse Resp BP BP Pulse Ox 12/29/21 12:00 36.7 C 79 18 115/62 98 12/29/21 08:00 37.2 C 69 18 128/63 94 12/29/21 03:39 67 12/29/21 03:22 37.8 C H 64 19 121/69 95
--- NOTE | 2021-12-29 16:03 | Nephrology Progress Note ---
Date of Service December 29, 2021 Assessment & Plan (1) CKD (chronic kidney disease) stage 3, GFR 30-59 ml/min: Plan: Further improving acute on chronic renal failure. Baseline creatinine 1.3-1.4; 1460 mg protein in October w/ chronic nephritic sediment. high risk for complications related to ckd. diuresing but slowly. -blood, urine cxs given t max on December 27 are no growth to date -diuretics as below -avoid nephrotoxins -daily bmp Care coordinated w/ medicine team. NEPHROLOGY DISCHARGE RECS -d/c on torsemide 40 mg bid -hold losartan at hospital d/c -defer starting SGLT2i until groin fungal issues resolve -educate on high potassium diet; encourage use of K-rich salt substitute -needs to AVOID nsaids except for 81 mg ASA daily; not to resume 650 mg ASA prn from earlier admissions -d/c on <2 gm daily Na diet, 1.5L daily fluid limit -needs to do daily STANDING weight as she safely can at home and log -needs bmp weekly x 3 TO BE ORDERED BY outpt NEPHRO RN and drawn by N -needs [facility] appt with me in 2-4 wks (2) Acute on chronic diastolic HF (heart failure): Plan: as above No cardiac cath planned urgently Admission and Anticipated Discharge Date Admission Date: December 27, 2021 Subjective feels edema, abd fullness minimally changed; no worse sob; has fungal groin infection currently after incontinence last admssn Review of Systems Review of Systems: All systems reviewed & are unremarkable except as noted in Subjective Physical Exam Constitutional: well developed, well nourished, + obese and cooperative; no acute distress Eyes: EOM intact bilaterally ENMT: Ears: no external ear abnormality Nose: no external nose abnormality Mouth: + dry oral mucous membranes Neck: no nuchal rigidity Respiratory: normal respiratory effort Auscultation: + diminished lung carlos nds and + vesicular breath sounds Cardiovascular: Rate/Rhythm: regular rate and regular rhythm Heart Sounds: normal S1 and normal S2 Extremities: + edema (1-2+ BLE) Gastrointestinal (Abdomen): Inspection/Auscultation: + abdomen distended and normal bowel sounds Percussion/Palpation: abdomen soft and + fluid wave; abdomen nontender Musculoskeletal: Extremities: strength 5/5 throughout Skin: no rashes, warm and dry Trauma: + evidence of skin trauma (Right foot wrapped; L malleolus bandaged) Neurologic: foote, fluent speech, no tremor Psychiatric: Orientation: oriented x 3 Insight: good insight Judgement: good judgement Results & Data ([facility]) Vital Signs (Past 12 Hours) Vital Signs Temp Pulse Resp BP BP Pulse Ox 12/29/21 12:00 36.7 C 79 18 115/62 98 12/29/21 08:00 37.2 C 69 18 128/63 94 Laboratory Results 12/29/21 06:21 12/29/21 06:21
--- NOTE | 2021-12-29 18:46 | Discharge Summary ---
Date of Service December 29, 2021 Admission HPI Per Admitting Provider 56 y/o F w/ DM2, htn, diastolic chf, [place], and recent admission (12/20/21 d/c) found to have NSTEMI and new wall motion abnormalities who presents w/ hypoglycemic episode and new onset chest pain just prior to midnight. Her BSG was <60. This improved after glucose tabs and Boost. However, her chest discomfort, which was a left lateral edge chest pressure (3/10 severity) that was intermittent, reoccurring 3-5 minutes and lasting up to 3 minutes at the most. It was not exertional and there were no alleviating factors. She did not have associated N/V, diaphoresis. When these episodes persisted past 1.5 hours and was not relieved by 4 baby ASA, she decided to call EMS. She did not take any nitro because she was worried it would lower her BP.She notes that the chest pain episodes resolved on their own after 2.5 hours. No current chest pain in the ED. Patient had transient CP 4 wks ago that was relieved by nitro. Patient has not weighed self due to inability to use scale, but is concerned about fluid retention as her diuretic regimen was decreased at last hosp discharge because of her KHANG. Patient has an apt w/ outpatient cardiology on 12/29/21 as part of planning for cardiac cath (deferred during at last admission given the KHANG, access issues and possible multivessel disease)). Patient is a never smoker, but has had significant second hand smoke exposure. Patient has a pressure ulcer at her left ankle w/ cultures from 12/22/21 pos for MSSA. She has not been on abx as outpatient and has noted subj fevers and chills. Principal Diagnosis Edema Discharge Exam In general she is awake and alert pleasant no distress. HEENT normocephalic atraumatic mucous membranes moist. Breathing unlabored no accessory muscle use good effort. Skin shows no rashes no pallor or icterus no tracking erythema. Neuro without focal deficits. Mental status intact. Discharge Data Allergies Allergy/AdvReac Type Severity Reaction Status Date / Time adhesive Allergy Severe blisters Verified 12/27/21 02:43 ceftazidime [From Fortaz] Allergy Severe renal Verified 12/27/21 02:43 failure dalbavancin Allergy Severe RASH ALL Verified 12/27/21 02:43 OVER FACE AND CHEST doxycycline Allergy Severe RASH Verified 12/27/21 02:43 Sulfa (Sulfonamide Allergy Severe w/ Verified 12/27/21 02:43 Antibiotics) diuretics - due to kidneys tetracycline Allergy Severe RASH Verified 12/27/21 02:43 vancomycin Allergy Severe renal Verified 12/27/21 02:43 failure sitagliptin [From Januvia] Allergy Intermediate muscle Verified 12/27/21 02:43 spasms hydrochlorothiazide Allergy Unknown Rash Verified 12/27/21 02:43 ibuprofen AdvReac Severe Renal Verified 12/27/21 02:43 Failure ketorolac [From Toradol] AdvReac Severe Renal Verified 12/27/21 02:43 Failure carvedilol AdvReac Mild lip Verified 12/27/21 02:43 numbness DIURETICS AdvReac Severe unable to Uncoded 12/27/21 02:43 take because of kidneys Consultations 12/27/21 03:15 ED Decision to Admit Stat 12/27/21 06:49 Consult Cardiology Routine 12/27/21 09:57 Consult Nephrology Routine Hospital Course (1) Chest pain: No wall motion abnormalities sometime in the last 6 months, mildly elevated troponins. Higher than average risk for cath due to creatinine. Close outpatient follow-up. Med management/secondary risk reduction, close cardiology follow-up. Discussed symptoms to watch for and how to manage/when to seek care. (2) Diabetes mellitus type 2, uncontrolled, with complications: Insulin continues to be in dynamic titration due to her very serious efforts to make significant lifestyle improvements, and therefore markedly diminishing her carb intake at home. This has necessitated a rapid reduction in her insulin. For now, will reduce to 50 units of Lantus in the morning, 15 of log at each mealnot static dosing, dynamically based on carbs she is eating. Checking 2-hour postprandial glucoses to assess the efficacy of matching her log insulin with her carbs, checking fastings to look for the efficacy of the Lantus. Continue lifestyle change. (3) Edema: Venous stasis, obesity related. Does have some CKD. Did respond cautiously to diuretics in the hospitalis aware that she will likely reach a point of diminishing returns with her creatinine rises disproportionate ongoing improvement in edemafor now ongoing diuresis with close nephrology follow-up. (4) Hypertension: Home meds (5) Hyperlipidemia: Continue rosuvastatin (6) Anxiety: Venlafaxine (7) Unstageable pressure ulcer of left ankle: Grew MSSA 4/6. Although wound is not draining she did have subjective fever/chills in the afternoon, so Ancef was utilized during hospital stay. Will send home on Keflex. (8) Chronic kidney disease: Weekly basic metabolic panel for the near future, close outpatient follow- up. Stable for home Total Time Total Time Spent Total Time Spent (In Minutes): >30 Discharge Plan Discharge Items Patient Disposition: Home - Home Health Services Reason For Visit: Chest Pain Discharge Diagnosis: edema Activity: Resume your previous activity Activity Comment: see below Non-emergency contact: Primary Care Provider, District Resource Officer and Shoe Patternmaker Call non-emergency contact if: you have any medication questions and your symptoms worsen Follow-up/Referrals: Sara Aragon MD [Primary Care Provider] - Diet: Carb Consistent or DM2 and Low Sodium (2gm) Addtl Attending Provider Instructions: fluid -as we have been discussing, the fluid retention is related to venous stasis and third spacing of fluids from that, retention of fluids from your kidneys, or both -the most important part of the above conundrum is that right now you're moving fluids out with diuretics, but we know that at some point it will reach "diminishing returns" - and so it's OK to continue with diuretics for now, but Dr Beltre and Dr Aragon will keep a close eye on things - we may see a point at which your creatinine starts to rise more than you're putting out fluids - at that point they'll direct you on holding off or reducing the diuretics -to follow things closely - Dr Beltre will have a weekly BMP (basic metabolic panel) checked at least for the next several weeks - then likely frequently thereafter -ideally if you're able to weigh yourself daily, please do so - this will allow your team to also determine to a degree if we're seeing "diminishing returns" if the weight levels off/stops declining ---as we discussed during your last hospital stay, sodium restriction is also huge with this. when your kidneys see salt, they hold onto water. so when they see a lot of salt, they hold onto a lot of water. to that end, being as tight as you can be with a sodium restriction is really critical as it will keep you from retaining the fluid you're trying to get rid of. ideally try to stay less than 2000mg of sodium in a day -for the time being, Dr Beltre also recommends that you restrict to about 1.5L (about 40 ounces of fluid) a day -- i suspect that will be able to be lifted once you're at a "dry point" based on your labs/weights/etc. -for now we'll have you taking torsemide 40mg twice a day - Dr Beltre will keep guiding you on dose adjustments based on how you feel/your labs/your weight -we'll have you off of losartan for the time being to prevent risk of worsening kidney problems if the diuretics "overshoot" a little (typically meds like losartan are really protective of kidneys, but when people are dry, they can accentuate the kidney problems brought on by being dry -- so while things are in flux with the diuretics, it's going to be safer to hold off on the losartan) -except for an 81mg aspirin, avoid any and all anti-inflammatories (tylenol, acetaminophen, is kidney safe) chest pain -the "twinge" pain you've been feeling through the week is almost certainly not cardiac - it's extremely consistent with spasm/twitch of your intercostal muscles (muscles between the ribs) - so that discomfort you can try to massage out/take deep breaths to stretch your ribs, or even flat out ignore if it's not that bothersome. -the "weight" that you felt the night you came to the hospital is the "chest pain" that we wouldn't want you to ignore. if you feel that (and especially if you feel that along with shortness of breath) stop what you're doing and rest. if it doesn't go away with about 5 minutes of rest, then take a nitro -- with your situation, if you needed the nitro, I'd have you come to the hospital to get checked out (as opposed to the more "traditional" waiting until after the third nitro). if you're worried about taking a nitro because of low blood pressure, then if you can - check your pressure - if you can't//if the situation doesn't allow for that for whatever reason, then it's very reasonable to come to the hospital at that point too -continue to follow up with Dr Saldivar for this. He can continue to monitor your symptoms and adjust your medications to take strain off your heart. Likewise he (along with Dr Beltre) can help truly quantify the risk to your kidneys if a heart cath were to be done (called "contrast nephropathy") and what they might be able to do to try to manage that risk some. As an alternative to a cath, a stress test (not to look for if coronary disease is likely - but to look at how much heart muscle seems to be at risk - as part of a risk/benefit balance on "heart vs kidneys") is reasonable to discuss as well diabetes -you continue to make me proud with how quickly you're changing your diet and improving your diabetes. at the same time, the problem with that is because you're eating a lot less carbs, you're also rapidly needing a lot less insulin - leading to low sugars more than you've probably had in a long time -we'll adjust your insulins further - for now we'll drop things to Lantus 50 units in the morning, and Log insulin about 15 units at each meal ----> Lantus - kicks in over 1-2 hours, no peak of activity, wears off between about hours 18-24. the big thing to look for reducing the lantus to daily is if you "wake up sweet" (ie your sugars noticably rise in the last 6 hours or so that the lantus is wearing off) then you might still need some semblance of twice daily dosing - although to protect you from lows when you're in a prolonged fasting state, it would probably be a twice a day dose skewed to more units of insulin in the morning ----> Log - kicks in over about 15 minutes, peaks at about 90 minutes, and is gone in about 3-4 hours. Because this pretty much mirrors absorption of carbohydrates in your diet, the "goal" is to match up how much log you take with how many carbs you eat. For you, instead of having you weight/measure everything and then calculate units based on a carb ratio, we'll just have the log insulin at a "center point" of about 15 units at a meal. the main way to gauge accuracy though will be "grading your work" with a sugar check about 2 hours after you eat. ideally you'll get all of these postprandial glucoses to about 100-150. if you ate something and saw a higher sugar after, first reconsider the carbs in what you ate, and second, take more insulin if you're going to eat the same (or similar) thing again. this "educated trial and error" works really well for most people - just always remember the critical piece is checking sugars after the meal. ---with insulin it's important to remember then overall insulin on the day should be about 50% long acting and 50% short acting. if things are way out of balance, talk to Dr Aragon to help trouble shoot and adjust (for example - your insulin regimen this last week was ordered as lantus 40 units twice a day and about 20 of log at each meal - or about 140 units on the day -- but because the basal (lantus) was so "heavy handed" you were running into trouble with lows and not really able to take any log. with "all basal no bolus" we often seen people run into trouble with lows when they're in a prolonged fasting state (and still spike high after meals sometimes anyway since the lantus doesn't change) To DO: -weekly BMP (labwork) for at least the next 3 weeks -torsemide 40mg twice a day for the time being -no losartan for now -no NSAIDS indefinitely -pay attention to the "weight on your chest" feeling and seek help if it happens -change insulins to lantus 50 units daily, log about 15 units at meals - grade this dosing with sugar checks 2 hours after you eat -follow closely with Dr Aragon, Yariel, and Alexsander Pending Studies at Discharge: No Stand-Alone Forms: My [facility] [employer], Smoking Cessation Medications and DC Order Prescriptions: New torsemide 20 mg Tablet 40 mg PO BID Qty: 30 RF: 0 nitroglycerin [Nitrostat] 0.4 mg Tablet, Sublingual 0.4 mg sublingual UD PRN (Reason: chest pain) Qty: 30 RF: 0 cephalexin 500 mg capsule 500 mg PO BID 7 Days Qty: 14 RF: 0 Continued venlafaxine [Effexor XR] 150 mg capsule,extended release 24hr 300 mg PO .ON HOLD RF: 0 rosuvastatin [Crestor] 20 mg tablet 40 mg PO HS RF: 0 (DME) OneTouch Verio test strips Strip See Rx Instructions .ROUTE .MEDSUPPLY Qty: 10 RF: 0 (DME) lancets [OneTouch Delica Lancets] 30 gauge misc See Rx Instructions .ROUTE .MEDSUPPLY Qty: 100 RF: 0 cetirizine [Zyrtec] 10 mg Tablet 10 mg PO DAILY RF: 0 ondansetron HCl 4 mg Tablet 4 mg PO TID PRN (Reason: NAUSEA/VOMITING) RF: 0 aspirin 81 mg Tablet,Delayed Release (Dr/Ec) 81 mg PO QAM Qty: 30 RF: 0 carvedilol 25 mg tablet 25 mg PO BID 30 Days Qty: 60 RF: 0 Changed Lantus U-100 Insulin 100 unit/mL solution 50 unit subcut DAILY Qty: 10 RF: 0 Humalog U-100 Insulin 100 unit/mL cartridge 15 unit subcut TID Qty: 15 RF: 0 Discontinued torsemide 20 mg tablet 20 mg PO QAM RF: 0 aspirin 325 mg Tablet 650 mg PO DAILY PRN (Reason: Pain) RF: 0 Discharge Orders: Discharge Order (Routine); Ordered 12/29/21 Ordered By: Eric Clemons Admission Data Admit Date/Time: 12/27/21 05:35 Attending Provider: Eric Clemons Admit Provider: Brandon Olivera Primary Care Provider: Sara Aragon Other Providers: Carol Nunez ; Oskar Lunsford ; Maria Isabel Beltre. Other Interventions: Discharge Summary Assessment (RN) Last Done: 12/29/21 18:26 Coding Level of Care Code D/C DAY MANAGEMENT >30 MINS Diagnoses Chest pain R07.9 Chest pain type: unspecified Diabetes mellitus type 2, uncontrolled, with complications E11.8; E11.65 Edema R60.9 Hypertension I10 Hypertension type: essential hypertension Hyperlipidemia E78.2 Hyperlipidemia type: mixed hyperlipidemia Anxiety F41.9 Unstageable pressure ulcer of left ankle L89.520 Chronic kidney disease N18.9
== END 2021-12-29 18:43 | disposition home health service (06) | DRG 291 ==
LOC: ED 00:52 → SUATTDRO 05:35 → 2S 05:35
DX: H90.6 Mixed conductive and sensorineural hearing loss, bilateral; Z86.73 Personal history of transient ischemic attack (TIA), and cerebral infarction without residual deficits; Z88.2 Allergy status to sulfonamides; Z66 Do not resuscitate; I87.2 Venous insufficiency (chronic) (peripheral); E66.01 Morbid (severe) obesity due to excess calories; E11.42 Type 2 diabetes mellitus with diabetic polyneuropathy; E11.649 Type 2 diabetes mellitus with hypoglycemia without coma; J45.909 Unspecified asthma, uncomplicated; A52.16 Charcot's arthropathy (tabetic); L89.520 Pressure ulcer of left ankle, unstageable; R07.89 Other chest pain; N17.9 Acute kidney failure, unspecified; Z88.1 Allergy status to other antibiotic agents; N18.30 Chronic kidney disease, stage 3 unspecified; E78.2 Mixed hyperlipidemia; Z90.09 Acquired absence of other part of head and neck; E11.610 Type 2 diabetes mellitus with diabetic neuropathic arthropathy; G47.33 Obstructive sleep apnea (adult) (pediatric); E11.22 Type 2 diabetes mellitus with diabetic chronic kidney disease; J96.21 Acute and chronic respiratory failure with hypoxia; Z99.3 Dependence on wheelchair; I50.33 Acute on chronic diastolic (congestive) heart failure; Z88.6 Allergy status to analgesic agent; Z87.442 Personal history of urinary calculi; E87.1 Hypo-osmolality and hyponatremia; Z68.43 Body mass index [BMI] 50.0-59.9, adult; E11.621 Type 2 diabetes mellitus with foot ulcer; I13.0 Hypertensive heart and chronic kidney disease with heart failure and stage 1 through stage 4 chronic kidney disease, or unspecified chronic kidney disease; Z79.4 Long term (current) use of insulin; I25.10 Atherosclerotic heart disease of native coronary artery without angina pectoris; Z91.048 Other nonmedicinal substance allergy status; F41.9 Anxiety disorder, unspecified; Z79.82 Long term (current) use of aspirin; Z88.8 Allergy status to other drugs, medicaments and biological substances; I25.2 Old myocardial infarction; H66.92 Otitis media, unspecified, left ear

== ENCOUNTER 2024-12-29 13:30 | Inpatient (IN) ==
--- OUTSIDE RECORDS SUMMARY | 2024-12-29 13:38 | External Medical Summary | Summary of Care ---
Author Name Unknown Organization [facility] Address [address] [address] Phone [phone] Care Team Providers Care Inspector Barrel Name Role Phone Sara Aragon MD Primary Care Provider [phone] Reason for Visit * Reason Comments eRx-Medication Refill Encounter Details Date Type Department Care Team (Late st Contact Info) Description 12/04/2024 Refill Cardiology, [facility] [address] [place] [id number] Ben Hobbs PAIsai [address] [place] [id number] HTN, goal below 130/80 Allergies Active Allergy Reactions Criticality Noted Date Comments Amoxicillin-Pot Clavulanate Other (Please comment) High 08/16/2021 ST depression Carvedilol Low 08/09/2017 Other reaction(s): lip numbness Ceftazidime High 08/31/2022 Other reaction(s): renal failure Dalbavancin High 08/31/2022 Other reaction(s): RASH ALL OVER FACE AND CHEST Doxycycline Rash 08/09/2017 Hydrochlorothiazide Rash 08/09/2017 Ibuprofen Renal complications High 09/16/2020 Other Allergy (See Comments) Renal complications High 08/09/2017 Pt reports "no diuretics" reaction acute renal failure Sitagliptin High 08/31/2022 Other reaction(s): muscle spasms Adhesive Tape Other (Please comment) 08/09/2017 blisters Ketorolac Tromethamine Renal complications High 12/ Vancomycin Renal complications High 08/09/2017 Pt reports acute renal failure- when given with fortaz. documented as of this encounter (statuses as of 12/05/2024) Medications BD INSULIN SYRINGE 25G X 1" 1 ML MISC 018 Active insulin glargine (LANTUS) 100 UNIT/ML injection Inject 80 Units under the skin in the morning and 80 Units before bedtime. 1 Each 020 Active Alive Once Daily Womens 50+ Oral Tablet Take by mouth daily. Gummy Active Bisacodyl 5 MG Oral Tablet Delayed Release (Dulcolax) Take 2 Tablets by mouth as needed. Active Digestive Advantage Gummies Oral Tablet Chewable Take 2 Each by mouth in the morning. Active Aspirin EC 81 MG Oral Tablet Delayed Release Take 4 Tablets by mouth once as needed (for chest pain). Pt reports currently taking up to 12 tablets 81mg daily 022 Active Vitamin D3 25 MCG (1000 UT) Oral Tablet (Vitamin D3) Take 1 Tablet by mouth in the morning. 022 Active Systane 0.4-0.3 % Ophthalmic Solution (Artificial Tears) Instill into both eyes as needed for Dry eyes. Active Sucralfate 1 GM Oral Tablet (Carafate) Take 1 Tablet by mouth in the morning and 1 Tablet at noon and 1 Tablet in the evening and 1 Tablet before bedtime. As needed. 023 Active Potassium Chloride Angy ER 10 MEQ Oral Tablet Extended Release Take one tab on days that you take torsemide or as directed. 45 Tablet 3 023 Active Additional Information Patient not taking.Reported on 12/02/2024 Rosuvastatin Calcium 40 MG Oral Tablet (Crestor) Take 1 Tablet by mouth daily. 90 Tablet 3 023 Active Ondansetron HCl 4 MG Oral Tablet (Zofran) take 1 tablet by mouth every 8 hours if needed for nausea 20 Tablet 1 023 Active Additional Information Patient not taking.Reported on 12/02/2024 Allopurinol 100 MG Oral Tablet (Zyloprim)Indicat ions:Hyperuricemi a Take 2 Tablets by mouth in the morning. 60 Tablet 11 024 Active Additional Information Patient not taking.Reported on 12/02/2024 NovoLOG 100 UNIT/ML Injection Solution Inject 35 Units under the skin in the morning and 35 Units at noon and 35 Units in the evening. Inject with meals. Active HYDROcodone-Aceta minophen 10-325 MG Oral Tablet Take 0.5 Tablets by mouth every 8 hours as needed. Active Ezetimibe 10 MG Oral Tablet (Zetia)Indication s:Dyslipidemia, goal LDL below 70 Take 1 Tablet by mouth daily. 31 Tablet 5 024 Active Additional Information Patient not taking.Reported on 12/02/2024 Isosorbide Mononitrate ER 60 MG Oral Tablet Extended Release 24 Hour (Imdur)Indication s:Abnormal nuclear stress test Take 1.5 Tablets by mouth in the morning. 135 Tablet 3 024 Active Naloxegol Oxalate 25 MG Oral Tablet (Movantik) Take 1 Tablet by mouth in the morning. 90 Tablet 3 024 Active Additional Information Patient not taking.Reported on 12/02/2024 ZyrTEC Allergy 10 MG Oral Capsule (Cetirizine HCl) Take 1 Capsule by mouth in the morning. Active Azelastine HCl 0.1 % Nasal Solution (Astelin) Administer 1 [place] into nostril in the morning and 1 [place] before bedtime. Active Carvedilol 25 MG Oral Tablet (Coreg)Indication s:HTN, goal below 130/80,Chronic diastolic congestive heart failure (HCC),ASCVD (arteriosclerotic cardiovascular disease) TAKE 1 TABLET BY MOUTH TWICE A DAY - MORNING AND BEDTIME 180 Tablet 3 024 Active Torsemide 20 MG Oral Tablet (Demadex)Indicati ons:Chronic diastolic congestive heart failure (HCC) TAKE 2 TABLETS BY MOUTH IF NEEDED DIRECTED BY 180 Tablet 3 024 Active Clindamycin HCl 300 MG Oral Capsule Take 1 Capsule by mouth in the morning and 1 Capsule at noon and 1 Capsule before bedtime. 024 Active Nitroglycerin 0.4 MG Sublingual Tablet Sublingual (Nitrostat) place 1 tablet under the tongue if needed every 5 minutes for chest pain for 3 doses IF NO RELIEF AFTER THIRD DOSE CALL PRESCRIBER OR 911. 75 Tablet 3 025 Active Additional Information Patient not taking.Reported on 12/02/2024 Spironolactone 25 MG Oral Tablet (Aldactone)Indica tions:HTN, goal below 130/80 TAKE 1 TABLET BY MOUTH EVERY DAY IN THE MORNING 90 Tablet 1 025 Active Spironolactone 25 MG Oral Tablet (Aldactone)Indica tions:HTN, goal below 130/80 TAKE 1 TABLET BY MOUTH EVERY DAY IN THE MORNING 90 Tablet 024 2024 Discontinued documented as of this encounter (statuses as of 12/05/2024) Active Problems Problem Noted Date Diagnosed Date Gastroparesis 04/02/2024 Chronic constipation 04/02/2024 Abnormal nuclear stress test 01/18/2018 HTN, goal below 130/80 01/18/2018 Dyslipidemia, goal LDL below 70 01/18/2018 documented as of this encounter (statuses as of 12/05/2024) Resolved Problems Problem Noted Date Diagnosed Date Resolved Date Type 2 diabetes mellitus wit h stage 3b chronic kidney disease, with long-term current use of insulin 01/24/2022 01/05/2023 Overview: Per CKD protocol Type 2 diabetes mellitus wit h stage 1 chronic kidney disease, with long-term current use of insulin 01/18/2018 01/27/2022 Overview: Per CKD protocol documented as of this encounter (statuses as of 12/05/2024) Immunizations Name Administration Dates Next Due COVID-19 mRNA, LNP-s, No Pre serve, 10 mcg, Ages 5-11 (Pfizer) 06/10/2022,02/16/2022,09/14/2021 COVID-19 mRNA, LNP-s, No Pre serve, 2-Dose Series (Moderna) 12/19/2020,11/21/2020 Seasonal Influenza, QUAD, wi th Preserv, 6 mons & Above, 0.5 mL, IM 05/31/2023,06/28/2022,06/10/2020, 0 16 Seasonal Influenza, Quad, Na timi (Flumist) 06/28/2022 documented as of this encounter Social History Tobacco Use Types Packs/Day Years Used Date Smoking Tobacco: Never Smokeless Tobacco: Never Comments:second hand smoke a s child Alcohol Use Standard Drinks/Week Comments Yes 0 (1 standard drink = 0.6 oz pur e alcohol) occasional for special events Comments No Sex and Gender Information Value Date Recorded Sex Assigned at Not on file Legal Sex Female 5:15 AM EST Gender Identity Not on file Sexual Orientation Not on file documented as of this encounter Miscellaneous Notes * Telephone Encounter - Jennifer Sánchez [facility] - 12/05/2024 11:52 AM EDT Signed Prescriptions: Disp Refills Spironolactone 25 MG Oral Tablet ([place]*90 Tab*1 Sig: TAKE 1 TABLET BY MOUTH EVERY DAY IN THE MORNINGAuthorizing Provider: BEN HOBBS User: JENNIFER SÁNCHEZ * Telephone Encounter - Hedy Harvey [facility]PhT - 12/04/2024 4:22 PM EDTPending Prescriptions: Disp Refills Spironolactone 25 MG Oral Tablet ([place]*90 Tab*0 Sig: TAKE 1 TABLET BY MOUTH EVERY DAY IN THE MORNING * Telephone Encounter - Hedy Harvey CPhT - 12/04/2024 4:17 PM EDT Patient is up to date for office visits. Pending Prescriptions: Disp Refills Spironolactone 25 MG Oral Tablet (Aldacto*90 Tab*0 Sig: TAKE 1 TABLET BY MOUTH EVERY DAY IN THE MORNING Last Visit: 12/02/2024 (in office), Visit date not found (telemedicine) Next Visit: Visit date not found If no future appointments scheduled, and last appointment is greater than a year ago, please schedule patient for a follow-up appointment Last date the medication was ordered: 09/12/24 Pharmacy: [id number] [facility] Is this request for a controlled substance?No it is not controlled. Urine Drug Screen:No results found for this or any previous visit. Patient Phone Numbers Labs: Lab Results Component Value Date/Time CREAT 1.5 (H) 12/02/2024 11:22 AM CREAT 1.46 (A) 10/20/2023 12:00 AM CREAT 1.0 03/12/2020 07:22 AM POTASSIUM 4.5 12/02/2024 11:22 AM POTASSIUM 3.8 10/20/2023 12:00 AM POTASSIUM 4.8 03/12/2020 07:22 AM TSH 3.41 12/10/2021 10:53 AM TSH 4.59 (H) 03/12/2020 07:22 AM LDL 57 08/03/2022 07:09 AM LDL 126 10/25/2021 09:16 AM LDL 157 (H) 03/12/2020 07:22 AM LDLCALC 150 11/02/2019 12:00 AM ALT 11 12/18/2023 10:01 AM ALT 31 03/12/2020 07:22 AM HGBA1C 10.7 (H) 04/15/2021 07:31 AM documented in this encounter Plan of Treatment Scheduled Procedures Name Priority Associated Diagnoses Date/Ti me COLONOSCOPY FLEXIBLE PROXIMAL DIAGNOSTIC Recall History of colon polyps Health Maintenance Due Date Last Done Comments Depression Screening 1975 HIV Screening 1978 Hepatitis C Screening 1981 DTap/Tdap Vaccines (1 - Tdap) 1982 Pap Smear 1984 Cervical Cancer Screening 1993 HPV/Co-Test 1993 Mammogram 2003 Cologuard 2008 Fecal Occult Blood Test 2008 Sigmoidoscopy 2008 Zoster Vaccines (1 of 2) 2013 Pneumococcal Vaccine: 50+ Years (2 of 2 - PCV) 07/19/2017 07/19/2016 Colonoscopy 09/04/2023 09/04/2020 Colorectal Cancer Screening 09/04/2023 COVID-19 Vaccine ( season) 2024 06/10/2022, 02/16/2022, 09/14/2021, Additional history exists GFR 12/02/2025 12/02/2024, 04/0 09/2023, 10/20/2023, Additional history exists Albumin/Creatinine Ratio 04/12/2026 023, 08/03/2022, 04/21/2021 Lipid Panel 08/03/2027 08/03/2022, 020 03/2022, 04/15/2021, Additional history exists Diabetes Screening 12/03/2027 12/02/2024, 0 12/18/2023, 10/20/2023, Additional history exists Influenza Vaccine (FLU shot) Completed 07/2024, 06/21/2024, 05/31/2023, Additional history exists HPV (Gardasil) Vaccine Aged Out No lo nger eligible based on patient's age to complete this topic Hepatitis B Vaccine Aged Out No longe r eligible based on patient's age to complete this topic MENINGOCOCCAL (MENACTRA/MENVEO) Aged Out No longer eligible based on patient's age to complete this topic Meningitis B Vaccine (Bexsero/Trumemba) Aged Out No longer eligible based on patient's age to complete this topic documented as of this encounter Medical Devices Implanted Type Area Shipping Coordinator Device Identifier Shelf Expiration Date Model / Serial / Lot Lens Intraoc 21.0 - [id number] - [id number] Implanted:Qty: 1 on 09/08/2020 by Gabriel Poe MD at OR [facility] Right: Eye [employer] 11/15/2024 [id number] / [id number] / [id number] Lens Intraoc 21.0 - [id number] - [id number] Implanted:Qty: 1 on 09/24/2020 by Gabriel Poe MD at [facility] Left: Eye [employer]OM[employer] 09/17/2024 [id number] / [id number] / documented as of this encounter Visit Diagnoses Diagnosis HTN, goal below 130/80 Unspecified essential hypertension documented in this encounter Care Teams Inspector Barrel Relationship Specialty Start Date End Date Sara Aragon MD [address] [place] [address] PCP - General Family Medicine 11/13/17 documented as of this encounter
--- OUTSIDE RECORDS SUMMARY | 2024-12-29 13:38 | External Medical Summary | Summary of Care ---
Author Name Unknown Organization [facility] Address [address] [place] [address] Phone [phone] Care Team Providers Care Computer Art Instructor Name Role Phone Sara Aragon MD Primary Care Provider [phone] Reason for Visit * Reason Onset Date Comments Home Monitoring Alarm 12/17/2024 Encounter Details Date Type Department Care Team (Late st Contact Info) Description 12/17/2024 Home Monitoring Care Coordination [address], [place] [id number] Karlie Boss LPN HTN, goal below 130/80* Allergies Active Allergy Reactions Criticality Noted Date [...] 08/09/2017 blisters Ketorolac Tromethamine Renal complications High 08/20 Vancomycin Renal complications High 08/09/2017 Pt reports acute renal failure- when given with fortaz. documented as of this encounter (statuses as of 12/19/2024) Medications BD INSULIN SYRINGE 25G X 1" 1 ML [facility] Active insulin glargine (LANTUS) 100 UNIT/ML injection Inject 80 Units under the skin in the morning and 80 Units before bedtime. 1 Each 11/21/19 Active Alive Once Daily Womens 50+ Oral [...] taking up to 12 tablets 81mg daily 04/20/20 Active Vitamin D3 25 MCG (1000 UT) Oral Tablet (Vitamin D3) Take 1 Tablet by mouth in the morning. 08/04/20 Active Systane 0.4-0.3 % Ophthalmic Solution (Artificial Tears) Instill into both eyes as needed for Dry eyes. Active Sucralfate 1 GM Oral Tablet (Carafate) Take 1 Tablet by mouth in the morning and 1 Tablet at noon and 1 Tablet in the evening and 1 Tablet before bedtime. As needed. 11/04/19 Active Potassium Chloride Angy ER 10 MEQ Oral Tablet Extended Release Take one tab on days that you take torsemide or as directed. 45 Tablet 3 04/12/20 Active Additional Information Patient not taking.Reported on 12/02/2024 Rosuvastatin Calcium 40 MG Oral Tablet (Crestor) Take 1 Tablet by mouth daily. 90 Tablet 3 06/09/20 23 Active Ondansetron HCl 4 MG Oral Tablet (Zofran) take 1 tablet by mouth every 8 hours if needed for nausea 20 Tablet 1 08/03/20 23 Active Additional Information Patient not taking.Reported on 12/02/2024 Allopurinol 100 MG Oral Tablet (Zyloprim)Indicati ons:Hyperuricemia Take 2 Tablets by mouth in the morning. 60 Tablet 11 11/15/19 24 Active Additional Information Patient not taking.Reported on 12/02/2024 NovoLOG 100 UNIT/ML Injection Solution Inject 35 Units under the skin in the morning and 35 Units at noon and 35 Units in the evening. Inject with meals. 11/30/19 24 Active HYDROcodone-Acetam inophen 10-325 MG Oral Tablet Take 0.5 Tablets by mouth every 8 hours as needed. 11/30/19 24 Active Ezetimibe 10 MG Oral Tablet (Zetia)Indications :Dyslipidemia, goal LDL below 70 Take 1 Tablet by mouth daily. 31 Tablet 5 12/18/19 24 Active Additional Information Patient not taking.Reported on 12/02/2024 Isosorbide Mononitrate ER 60 MG Oral Tablet Extended Release 24 Hour (Imdur)Indications :Abnormal nuclear stress test Take 1.5 Tablets by mouth in the morning. 135 Tablet 3 01/02/20 24 Active Naloxegol Oxalate 25 MG Oral Tablet (Movantik) Take 1 Tablet by mouth in the morning. 90 Tablet 3 04/04/20 24 Active Additional Information Patient not taking.Reported on 12/02/2024 ZyrTEC Allergy 10 MG Oral Capsule (Cetirizine HCl) Take 1 Capsule by mouth in the morning. Active Azelastine HCl 0.1 % Nasal Solution (Astelin) Administer 1 [place] into nostril in the morning and 1 [place] before bedtime. Active Carvedilol 25 MG Oral Tablet (Coreg)Indications :HTN, goal below 130/80,Chronic diastolic congestive heart failure (HCC),ASCVD (arteriosclerotic cardiovascular disease) TAKE 1 TABLET BY MOUTH TWICE A DAY - MORNING AND BEDTIME 180 Tablet 3 04/22/20 24 Active Torsemide 20 MG Oral Tablet (Demadex)Indicatio ns:Chronic diastolic congestive heart failure (HCC) TAKE 2 TABLETS BY MOUTH IF NEEDED DIRECTED BY 180 Tablet 3 05/27/20 24 Active Clindamycin HCl 300 MG Oral Capsule Take 1 Capsule by mouth in the morning and 1 Capsule at noon and 1 Capsule before bedtime. 07/29/20 24 Active Nitroglycerin 0.4 MG Sublingual Tablet Sublingual (Nitrostat) place 1 tablet under the tongue if needed every 5 minutes for chest pain for 3 doses IF NO RELIEF AFTER THIRD DOSE CALL PRESCRIBER OR 911. 75 Tablet 3 10/16/19 Active Additional Information Patient not taking.Reported on 12/02/2024 Spironolactone 25 MG Oral Tablet (Aldactone)Indicat ions:HTN, goal below 130/80 TAKE 1 TABLET BY MOUTH EVERY DAY IN THE MORNING 90 Tablet 1 12/06/19 25 Active documented as of this encounter (statuses as of 12/19/2024) Active Problems Problem Noted Date Diagnosed Date Gastroparesis 04/02/2024 Chronic constipation 04/02/2024 Abnormal nuclear stress test 01/18/2018 HTN, goal below 130/80 01/18/2018 Dyslipidemia, goal LDL below 70 01/18/2018 documented as of this encounter (statuses as of 12/19/2024) Resolved Problems Problem Noted Date Diagnosed Date Resolved Date Type 2 diabetes mellitus wit h stage 3b chronic kidney disease, with long-term current use of insulin 01/24/2022 01/05/2023 Overview: Per CKD protocol Type 2 diabetes mellitus wit h stage 1 chronic kidney disease, with long-term current use of insulin 01/18/2018 01/27/2022 Overview: Per CKD protocol documented as of this encounter (statuses as of 12/19/2024) Immunizations Name Administration Dates Next Due COVID-19 [...] on file documented as of this encounter Progress Notes * Maria Isabel Beltre MD - 12/18/2024 3:03 PM EDT Quite possible that low reading relates to pain medication. Will bear this in mind if future alarmsoccur * Karlie Boss LPN - 12/17/2024 10:48 AM EDT Corazon Shea [id number] Corazon Shea is currently participating in the [facility] Hypertension Management Program and had a reading on 12/17/2024 of 87/44. Pt has alerted for a singular Hypotension reading </= 90/50 . Parameters are currently set as follows: Average BP over 7 days >/= 130/80 Singular Systolic BP Reading </= 90 or >/=180 Singular Diastolic BP Reading </= 50 or >/=120 Patient is not reporting new symptoms or concerns. Received text, seen by ortho for knee pain, knee muscles twisted and stretched - no tear. Pain medicine working! Please review the recent history of home RPM readings in Epic Synopsis Flowsheets and work with your clinical staff if any additional actions or interventions are required. If you would like to customize the alert parameters and/or instructions for this patient, please let me know and we can have them changed. Thank you! Karlie Boss LPN documented in this encounter Plan of Treatment [...] this encounter Medical Devices Implanted Type Area Senior Formulation Scientist Device Identifier Shelf Expiration Date Model / Serial / Lot Lens Intraoc 21.0 - [id number] - [id number] Implanted:Qty: 1 on 09/08/2020 by Gabriel Poe MD at OR [facility] Right: Eye [employer] 11/15/2024 [id number] / [id number] / [id number] Lens Intraoc 21.0 - [id number] - [id number] Implanted:Qty: 1 on 09/24/2020 by Gabriel Poe MD at OR [facility] Left: Eye [employer]OM[employer] 09/17/2024 [id number] / [id number] / documented as of this encounter Visit Diagnoses Diagnosis HTN, goal below 130/80- Primary Unspecified essential hypertension documented in this encounter Care Teams Computer Art Instructor Relationship Specialty Start Date End Date Sara Aragon MD [facility] Ximena Baker [facility] [address] [place] [address] PCP - General Family Medicine 11/13/17 documented as of this encounter
--- OUTSIDE RECORDS SUMMARY | 2024-12-29 13:38 | External Medical Summary | Continuity of Care Document ---
Author Name Unknown Organization [facility] [address] [facility] Address [address] [place], [place] [id number] Care Team Providers Care Agricultural Engineer Name Role Phone Sara Aragon Primary Care Physician [phone] Encounter [facility] [id number] Date(s): 12/06/24 - 12/06/24 [facility] [address], [address] [place] [address] [phone] Encounter Diagnosis CHF (congestive heart failure)(Discharge Diagnosis) - 12/05/24 CAD (coronary artery disease)(Discharge Diagnosis) - 12/05/24 Type 2 diabetes, HbA1c goal < 7%(Discharge Diagnosis) - 12/05/24 Chronic pain syndrome(Discharge Diagnosis) - 12/05/24 Nonhealing nonsurgical wound(Discharge Diagnosis) - 12/05/24 Advanced directives, counseling/discussion(Discharge Diagnosis) - 12/06/24 Discharge Disposition: Home or Self Care Attending Physician: MD Aragon Amy L Encounter Type: Clinic Allergies, Adverse Reactions, Alerts Substance Criticality Severity Reaction Reaction Severity Status labetalol Headache Nausea Active doxycycline rash Active Tape rash Active hydroCHLOROthiazide rash Active sulfa drugs Rash Active Coreg Numbness Numbness of tongue Active Toradol renal failure Active DAPTOmycin rash Active Januvia Muscle Spasms Active NSAIDs renal failure Active dalbavancin Rash Active Assessment and Plan Extracted from: Title:Office Visit Note Author:MD Aragon Amy L D ate:12/06/24 1. CHF (congestive heart fa ilure) STATUS : chronic, uncontrolled. DATA : hx, exam, cardiology note, weights reviewed. GOAL : maintain euvolemia & cardiovascular stability. PLAN : her fluid overload is becoming more & more refractory to tx. Her flame cutter has told her that he has nothing else to offer. Corazon is quite intelligent & knowledgeable about her conditions. She realizes that she may be approaching end-stage CHF. 2. CAD (coronary artery disease) STATUS : chronic, uncontrolled. DATA : hx & exam reviewed. GOAL : maintain euvolemia, stable cardiac rhythm. PLAN : she has baseline of significant angina, for which multiple cardiologists have told her that she has no tx options, due, in part, to her extremely poor vascular access. 3. Nonhealing nonsurgical wound STATUS: Chronic stable. DATA: hx reviewed. GOAL: heal wound. PLAN: Cont current wound clinic follow up & monitoring. Sh is currently on Doxy for refractory wound infection. Refills were done for Carafate & Diflucan. 4. Type 2 diabetes, HbA1c goal < 7% Status : chronic, uncontrolled. Data : diet & glucometers reviewed. Goal : maintain normal blood sugars. Plan : last A1C was 10.6%. However, given her co-morbidities, she herself realizes that tight control is unlikely. Continue endocrine follow up & monitoring. 5. Chronic pain syndrome STATUS: Chronic stable. DATA: hx of pain sx reviewed. GOAL: palliate/resolve pain. PLAN: she uses Tramadol very sparingly, leonel given that we are in a palliative care situation. 6. Advanced directives, counseling/discussion The patient and I had a rather prolonged discussion (approximately 35 minutes) regarding her advance directive wishes. Her POLST form was filled out accordingly. She essentially wants comfort care only, however, her concern is that given her poor vascular access, she might need to return to the hospital for a central line, just so that hospice nurses would be able to administer pain meds to her. Her POLST form was filled out accordingly. She is quite aware of her dire situation, and we discussed possibilities of either palliative care and/or hospice. She would like to defer making those arrangements for right now, because she is trying to discuss this matter with her 91-year-old father, with whom she lives. She does realize that hospice is likely on her near horizon, and will let me know if she is ready to get them involved. She also had questions about how we would be notified of her , and if I were to fill out her certificate, what would be her primary diagnosis. We discussed the fact that this would be refractory congestive heart failure and coronary artery disease. At the end of our discussion she expressed gratitude for being able to discussed these matters freely. Return in 3-4 months. Time: Total time spent with this patient on day of evaluation including chart review, ordering, education and coordination of care elements: _39 minutes Immunizations Given and Recorded Vaccine Date Status Refusal Reason influenza virus vaccine, inactivated 06/28/24 Give n influenza virus vaccine, inactivated 05/31/23 Give n influenza virus vaccine, inactivated 06/28/22 Give n influenza virus vaccine, inactivated 06/10/20 Give n SARS-CoV-2 mRNA (tozinameran 5y-11y) 06/10/22 Robert rded SARS-CoV-2 mRNA (tozinameran 5y-11y) 02/16/22 Robert rded SARS-CoV-2 mRNA (tozinameran 5y-11y) 09/14/21 Robert rded SARS-CoV-2 (COVID-19) mRNA-1273 vaccine 12/19/20 R ecorded SARS-CoV-2 (COVID-19) mRNA-1273 vaccine 11/21/20 R ecorded SARS-CoV-2 (COVID-19) mRNA-1273 vaccine 1 11/14/20 Recorded SARS-CoV-2 (COVID-19) mRNA-1273 vaccine 11/14/20 R ecorded SARS-CoV-2 (COVID-19) ChAdOx1 vaccine 12/19/20 Rec orded SARS-CoV-2 (COVID-19) ChAdOx1 vaccine 11/21/20 Rec orded pneumococcal 23-valent vaccine 07/19/16 Recorded 1Result Comment: incorrect date Medications acetaminophen-hydrocodone 325 mg-5 mg oral tablet Start: 11/18/24 8:15:00 PM EST, 1 tab, PO, bid, Disp# 14 tab, Refills: 0, PRN: as needed for pain, Pharmacy: [facility]/pharmacy #[id number] Start Date: 11/18/24 Stop Date: 11/25/24 Status: Ordered Quantity: 14.0 Unit: tab Repeat number: 1 Alive Women's Gummy Start: 12/07/22 10:28:00 AM EDT, 1 gummy, PO, Daily Start Date: 12/07/22 Status: Ordered Repeat number: 1 BD 0.5 mL Ultra-Fine Insulin Syringe 30G x 1/2" Start: 03/23/20 1:26:00 PM EDT, See Instructions, Disp# 100 each, Refills: 2, Use with humalog and lantus five times daily., Pharmacy: [address] Start Date: 03/23/20 Status: Ordered Quantity: 100.0 Unit: each Repeat number: 3 BD 1 mL Insulin Syringe 25G x 1" Start: 08/09/17 9:44:00 AM EST, See Instructions, Disp# 100 each, Refills: 3, use BID, Dx : E11.9, Pharmacy: [facility] Start Date: 08/09/17 Status: Ordered Quantity: 100.0 Unit: each Repeat number: 4 bisacodyl 5 mg oral delayed release tablet Start: 03/22/22 2:20:00 PM EDT, 2 tab, PO, ONCE, PRN: as needed for constipation Start Date: 03/22/22 Status: Ordered Repeat number: 1 Carafate 1 g oral tablet Start: 12/06/24 9:53:00 AM EDT, 1 tab, PO, ac and hs, Disp# 120 tab, Refills: 6, [id number] Start Date: 12/06/24 Status: Ordered Quantity: 120.0 Unit: tab Repeat number: 7 carvedilol 25 mg oral tablet See Instructions, Disp# 28 tab, Refills: 6, take 1 tablet by mouth twice a day, Pharmacy: [address] Start Date: 12/13/21 Status: Ordered Quantity: 28.0 Unit: tab Repeat number: 1 Diflucan 200 mg oral tablet Start: 12/06/24 9:53:00 AM EDT, 1 tab, PO, Daily, Disp# 14 tab, Refills: 3, Pharmacy: [facility]/pharmacy #[id number] Start Date: 12/06/24 Stop Date: 01/31/25 Status: Ordered Quantity: 14.0 Unit: tab Repeat number: 4 Digestive Advantage Daily Probiotic Start: 12/07/22 10:30:00 AM EDT, 1 gummy, PO, Daily Start Date: 12/07/22 Status: Ordered Repeat number: 1 isosorbide mononitrate 60 mg oral tablet, extended release Start: 09/03/24 9:20:00 AM EST, 1.5 tab PO daily. Start Date: 09/03/24 Status: Ordered Repeat number: 1 Lantus Vial 100 units/mL subcutaneous solution Start: 03/26/20 3:35:00 PM EDT, See Instructions, Disp# 3 mL, Refills: 3, 80 unit subQ bid, Pharmacy:[address] Start Date: 03/26/20 Status: Ordered Quantity: 3.0 Unit: mL Repeat number: 4 nitroglycerin 0.4 mg sublingual tablet Start: 12/07/22 10:29:00 AM EDT, 1 tab, SL, q5min, PRN: as needed for chest pain Start Date: 12/07/22 Status: Ordered Repeat number: 1 NovoLOG FlexPen Start: 09/03/24 9:23:00 AM EST, Sliding Scale Start Date: 09/03/24 Status: Ordered Repeat number: 1 ondansetron 4 mg oral tablet Start: 03/23/20 1:26:00 PM EDT, 1 tab, PO, q4h, Disp# 30 tab, Refills: 1, PRN: as needed for nausea/vomiting, Pharmacy: [address] Start Date: 03/23/20 Status: Ordered Quantity: 30.0 Unit: tab Repeat number: 2 One Touch Delica Plus (33G) Lancets Start: 08/25/20 10:45:00 AM EST, See Instructions, Disp# 300 each, Refills: 6, Use to test blood sugar TID. Diagnosis: E11.9, [facility] Start Date: 08/25/20 Status: Ordered Quantity: 300.0 Unit: each Repeat number: 7 One Touch Ultra Blue Test Strips Start: 03/06/19 3:51:25 PM EDT, See Instructions, Disp# 1 box, Refills: 6, test TID, diagnosis E11.9, Pharmacy: [address] Start Date: 03/06/19 Status: Ordered Quantity: 1.0 Unit: box Repeat number: 7 One Touch Verio Glucose Monitor Start: 08/26/20 5:34:00 PM EST, See Instructions, Disp# 1 each, Refills: 1, Use to check blood sugarTID. Diagnosis: E11.9, Pharmacy: [id number] Start Date: 08/26/20 Status: Ordered Quantity: 1.0 Unit: each Repeat number: 2 One Touch Verio Test Strips Start: 08/25/20 10:03:00 AM EST, See Instructions, Disp# 300 each, Refills: 6, Use to test blood sugar TID. Dx: E11.9, [facility] Start Date: 08/25/20 Status: Ordered Quantity: 300.0 Unit: each Repeat number: 7 rosuvastatin Start: 09/03/24 9:21:00 AM EST, 40 mg =, PO, Daily Start Date: 09/03/24 Status: Ordered Repeat number: 1 spironolactone Start: 03/22/22 2:17:00 PM EDT, 25 mg =, PO, Daily Start Date: 03/22/22 Status: Ordered Repeat number: 1 torsemide Start: 03/22/22 2:17:00 PM EDT, 40 mg =, PO, Daily, May go up to max of 80 mg with swelling. Start Date: 03/22/22 Status: Ordered Repeat number: 1 traMADol 50 mg oral tablet Start: 11/13/24 7:48:00 AM EST, 1 tab, PO, q12h, Disp# 40 tab, Refills: 1, PRN: as needed for pain, Pharmacy: [facility]/pharmacy #[id number] Start Date: 11/13/24 Status: Ordered Quantity: 40.0 Unit: tab Repeat number: 2 TRUE METRIX GLUCOSE TEST STRIP TRUE METRIX GLUCOSE TEST STRIP, See Instructions, Disp# 100 strip, Refills: 3, TEST three times a day (THIS BRAND IS PREFERRED BY INSURANCE), Pharmacy [id number] Start Date: 06/11/20 Status: Ordered Quantity: 100.0 Unit: Repeat number: 1 ZyrTEC 10 mg oral tablet Start: 03/29/17 3:52:00 PM EDT, 1 tab, PO, Daily, PRN: allergies Start Date: 03/29/17 Status: Ordered Repeat number: 1 Mental Status 12/06/24 Barriers to Learning one year None evide nt Mandatory Health Literacy Documentation Yes Health Literacy Communication Barriers N ever Primary Language Italian Problem List Condition Confirmation Course Effective Dates Status Health Status Informant Acute gout Confirmed Active Acute non-suppurative otitis media Confirmed Active Change in bowel habits Confirmed Active Ankle edema Confirmed Active Candidal esophagitis Confirmed Active Cholesteatoma Confirmed Active Constipation, chronic Confirmed Active Chronic otitis media Confirmed Active Chronic pain syndrome Confirmed Active Chronic sinusitis Confirmed Active C. difficile diarrhea Confirmed Active CHF (congestive heart failure) Confirmed Active Constipation Confirmed Active CAD (coronary artery disease) Confirmed Active Atherosclerotic heart disease of [place] coronary artery with unspecified angina pectoris Confirmed 09/28/22 Active Diabetes Confirmed Active Charcot foot due to diabetes mellitus Confirmed Active Diabetic foot ulcer Confirmed Active Filtering (vitreous) bleb after glaucoma surgery status Confirmed Active Falls Confirmed Active Heart murmur Confirmed Active Broken tooth Confirmed Active Skin fragility Confirmed Active History of diabetic ulcer of foot Confirmed Active Hypercalcemia Confirmed Active Borderline hyperlipidemia Confirmed Active Borderline hyperlipidemia Confirmed Active Hyperparathyroidism Confirmed Active Hypertension Confirmed Active Adult hypothyroidism Confirmed Active Kidney stones Confirmed Active Other laborer marine terminal (current) drug therapy Confirmed Active intermediate frame tender (current) use of insulin Confirmed Active Melena Confirmed Active Anxious depression Confirmed Active Depression Confirmed Active Depression Confirmed Active Nonhealing surgical wound Confirmed Active BRYNN (obstructive sleep apnea) Confirmed Active Nonhealing nonsurgical wound Confirmed Active Nonhealing nonsurgical wound Confirmed Active Elevated troponin Confirmed Active Colicky RLQ abdominal pain Confirmed Active Sleep apnea Confirmed Active Type 2 diabetes, HbA1C goal < 7% Confirmed Active Type 2 diabetes, HbA1c goal < 7% Confirmed Active Diagnosis Diagnosis Type Effective Dates Health Status Clinical Service Informant CHF (congestive heart failure) Discharge Diagnosis 12/05/24 Non-Specified CAD (coronary artery disease) Discharge Diagnosis 12/05/24 Non-Specified Chronic pain syndrome Discharge Diagnosis 12/05/24 Non-Specified Type 2 diabetes, HbA1c goal < 7% Discharge Diagnosis 12/05/24 Non-Specified Nonhealing nonsurgical wound Discharge Diagnosis 12/05/24 Non-Specified Advanced directives, counseling/discuss ion Discharge Diagnosis 12/06/24 Non-Specified Procedures Procedure Date Related Diagnosis Body Site Status Shave biopsy of skin 04/15/24 Comp leted VITRECTOMY (Eye) 1 12/12/22 Comple tate Diabetic retinal eye exam 2 03/24/22 Completed CAT scan 3 12/15/21 Completed Chest X-ray 4 12/15/21 Completed Colonoscopy 5, 6 09/04/20 Complete d Upper GI endoscopy 7 09/04/20 Comp leted Cystoscopy 04/18/19 Completed Skin graft 8 11/2018 Completed Local flap of skin and muscl e right foot 10/2018 Completed Endometrial biopsy 9 03/26/18 Comp leted KUB X-ray 10 03/01/18 Completed Doppler 11 02/10/18 Completed MRI of right upper arm 12 02/10/18 Completed Echocardiogram 13 02/09/18 Complet ed Foot X-ray 14 02/09/18 Completed Mammogram 15 01/16/[address] of right lower extremity 16 01/02/18 Completed VASCULAR STUDY 17 01/01/18 Complet ed Venous doppler ultrasonography 18 01/01/18 Completed Polysomnograph 19 12/29/17 Complet ed Cardiac echo 20 11/30/[address] angiography 21 11/30/17 Complet ed CXR - Chest X-ray 22 11/30/17 Comp leted Tympanomastoidectomy 23 08/09/[address] of temporal bone 24 08/03/17 Co mpleted Exercise stress test 25 05/28/15 C ompleted Exercise stress test 26 02/26/15 C ompleted Cataract surgery 27 Compl eted Colonoscopy 28 Completed Excision of lipoma 29 Com pleted Excision of vaginal septum Completed Foot 30, 31 Completed History of cholecystectomy Completed 1auto-populated from documented surgical case 2[facility] Impression: 1. New posteroir viteous detachment OS 2. DM 2 with ocular complicatons 3. Moderate nonproliferative dibetic retinopaty OU 4. Dry eye syndrome OU 5. Diabetic macular edema OS 6. Pseudophakia OU 7. Ocular hypertension OU 3CT SCAN OF FACIAL BONES WITHOUT CONTRAST IMPRESSION:There is no evidence of facial bone fracture. 4CHESTXRAY-1 V PORTABLE IMPRESSION: 1. There is a decreased inspiratory effort with otherwise no acute chest disease. 5The examined portion of the ileum was normal. One 6mm polyp in the ascending colon, removed with a cold snare. Resected and retrieved. Four 6mm polyps in the descending colon, removed with a cold snare. Resected and retrieved. Normal mucosa in the entire examined colon. Biopsied. Deverticulosis in the sigmoid colon, in the descending colon and in the transverse colon. Non bleeding internal hemorrhoids. 6path - benign adenomatous polyps, follow up in 3 yrs. 7Z-line regular, 40cm from the incisors. Erythematous mucosa in the antrum. Biopsied. Normal duodenal bulb and second portion of te duodenum. 8x3 9path of cervix, endometrium & polyp - all neg for cancer 108 mm nonobstructing lower pole left renal calcification 11No DVT within the right lower extremity. 121. Focal skin ulceration along the plantar aspect of the midfoot which measures 2.8cm. Deep to the skin ulceration there is a 7mm focus within the anterior/plantar aspect of the calcaneus which deomstrates slight increased T2 and slight decreased T1 signal. this is concerning for an early osteomyelitis. 2. Additional chronic findings as described above. 13EF=60-65% There is mild concentric left ventricular hypertrophy. No regional wall motion abnormalites noted. The left atrium is mildly dilated. Diastolic dysfunction, Grade II(pseudonormalization pattern). Aortic valve sclerosis mild, without significant arotic valvular stenosis. 141. No acute fracture. 2. Ulceration/wound of the lateral plantar midfoot. 3. Marked right midfoot deformity, as described above, with sclerosis, ostwophytosis at abnormal alignement which is similar to CT of February 16, 2017. The findings suggest a Charcot joint/neuropathic arthropathy. No radiographic evidence for ostwomyelitis. 15[facility] Impression: ACR BI-RADS CATEGORY 1: NEGATIVE 1. No evidence of malignancy 16Neuropathic right foot as described above. Evidence of previous surgical intervention but o acute fracture apreciated. 17[facility] Impression: 1. Noncompressible vessels on the right limits evaluation for evaluation of ADELE's 2. No elevated velocities identified to suggest high-grade luminal narrowing 3. Monophasic waveforms within the distal peroneal artery 4. No evidence of significant inflow disease 18[facility] Impression: 1. No evidence of deep venous thrombosis 19[facility] Impression: 1. Severe BRYNN 20Mild concentric LVH; LV systolic function normal; LVEF 65-70%; mild aortic valve sclerosis w/out stenosis; Grade I diastolic dysfunction 21[facility] Impression: 1. No acute intrathoracic evaluate identified, specifically no acute aortic pathology or evidence of pulmonary thromboembolic disease 2. No lobar airspace consolidation or pathologic adenopathy 22No active disease in the chest. 23left 241. Moderate left mastoid effusion. No bony destruction is seen. 2. The right mastoid air cells are clear. 3. The middle ear structures are normal. 25lexiscan : no ischemia or arrhythmia, blunted HR response 26nondiagnostic; SOB at low level of exercise; abnormal HR recovery; decreased exercise tolerance; exaggerated BP response 27bilateral 286mm polyp in ascending colon, four 6mm in descending colon; nml mucosa; diverticulosis in sigmoid, descending & transverse colon; non-bleeding int. hemorrhoids 29right hip 30Fixater 31right Results Most recent to oldest [Reference Range]: 1 HgbA1C Outside Ref Range 4.5-5.6 (10/14/24 11:59 AM) HGb A1C Outside 10.6 % (10/14/24 11:59 AM) Vital Signs Most recent to oldest [Reference Range]: 1 Patient Weight 140 kg (12/06/24 9:25 AM) Heart Rate 64 bpm (12/06/24 9:25 AM) Respiratory Rate 18 br/min (12/06/24 9:25 AM) Blood Pressure 128/80mmHg (12/06/24 9:25 AM) Cuff Pulse Pressure 48 mmHg (12/06/24 9:25 AM) BP Location # 1 Left Arm (12/06/24 9:25 AM) Social History Social History Type Response Smoking Status Never smoked cigaret dandre Sex Female Sex Representation Female (finding) FCM Outpt Note * MD Mahesh, Sara Sahni: PERFORM Event Display: [facility]CM Outpt Note Authored Date: Chief Complaint follow up, weight is up, complete POLST form History of Present Illness * This patient is being followed longitudinally for chronic serious medical problems by Dr. Sara Aragon. Their most recent visit with Dr. Aragon: 09/03/24. Here for recheck of following concerns : 1) Intractable CHF - she is not responding to diuretics very much. She estimates that she has 20-30 extra pounds of fluid. Her flame cutter told her that there is not much else that he can do. He did ask her if she was interested in getting set up for dialysis. She told him emphatically that she is not. 2) Non-healing foot/ankle wound - she is on Doxy again for this, which upsets her stomach & makes her yeast infection recur. She would like refills of Carafate & Diflucan. 3) Type 2 DM -she knows that her diet is not good, but did not think that it mattered, since long-term complications are a moot point. 4) Advanced directives - she brought a POLST form with her to complete today. Review of Systems Review of Systems- Constitutional: + fatigue & weight gain. HEENT: no vision changes, or sinus congestion. Respiratory: no cough, +SOB, no wheezing. Cardiac: no change in chronic chest pain, no palpitations, + pedal edema. GI: + abdominal pain, no vomiting or change in bowel habits. Neurologic: no headaches. Physical Exam Vitals & Measurements HR: 64 (Monitored) RR: 18 BP: 128/80 SpO2: 98% WT: 140 kg WT: 140.000 kg (Dosing) PHQ2 Data (Data Documented on:12/06/2024 09:25) Emotional health assessment NEGATIVE General : Alert, in NAD. Respiratory : Speaks easily in full sentences, with no respiratory distress. Psych : answers all questions appropriately, mood seems normal. Assessment/Plan 1. CHF (congestive heart failure) STATUS : chronic, uncontrolled. DATA : hx, exam, cardiology note, weights reviewed. GOAL : maintain euvolemia & cardiovascular stability. PLAN : her fluid overload is becoming more & more refractory to tx. Her flame cutter has told her that he has nothing else to offer. Corazon is quite intelligent & knowledgeable about her conditions. She realizes that she may be approaching end-stage CHF. 2. CAD (coronary artery disease) STATUS : chronic, uncontrolled. DATA : hx & exam reviewed. GOAL : maintain euvolemia, stable cardiac rhythm. PLAN : she has baseline of significant angina, for which multiple cardiologists have told her that she has no tx options, due, in part, to her extremely poor vascular access. 3. Nonhealing nonsurgical wound STATUS: Chronic stable. DATA: hx reviewed. GOAL: heal wound. PLAN: Cont current wound clinic follow up & monitoring. Arcelia is currently on Doxy for refractory wound infection. Refills were done for Carafate & Diflucan. 4. Type 2 diabetes, HbA1c goal < 7% Status : chronic, uncontrolled. Data : diet & glucometers reviewed. Goal : maintain normal blood sugars. Plan : last A1C was 10.6%. However, given her co-morbidities, she herself realizes that tight control is unlikely. Continue endocrine follow up & monitoring. 5. Chronic pain syndrome STATUS: Chronic stable. DATA: hx of pain sx reviewed. GOAL: palliate/resolve pain. PLAN: she uses Tramadol very sparingly, leonel given that we are in a palliative care situation. 6. Advanced directives, counseling/discussion The patient and I had a rather prolonged discussion (approximately 35 minutes) regarding her advance directive wishes. Her POLST form was filled out accordingly. She essentially wants comfort care only, however, her concern is that given her poor vascular access, she might need to return to the hospital for a central line, just so that hospice nurses would be able to administer pain medsto her. Her POLST form was filled out accordingly. She is quite aware of her dire situation, and we discussed possibilities of either palliative care and/or hospice. She would like to defermaking those arrangements for right now, because she is trying to discuss this matter with her 91-year-old father, with whom she lives. She does realize that hospice is likely on her near horizon, and will let me know if she is ready to get them involved. She also had questions about how we would be notified of her , and if I were to fill out her certificate, what would beher primary diagnosis. We discussed the fact that this would be refractory congestive heart failure and coronary artery disease. At the end of our discussion she expressed gratitude for being able to discussed these matters freely. Return in 3-4 months. Time: Total time spent with this patient on day of evaluation including chart review, ordering, education and coordination of care elements: _39 minutes Problem List/Past Medical History Ongoing Acute gout Acute non-suppurative otitis media Adult hypothyroidism Ankle edema Anxious depression Atherosclerotic heart disease of [place] coronary artery with unspecified angina pectoris Borderline hyperlipidemia Borderline hyperlipidemia Broken tooth C. difficile diarrhea CAD (coronary artery disease) Candidal esophagitis Change in bowel habits Charcot foot due to diabetes mellitus CHF (congestive heart failure) Cholesteatoma Chronic otitis media Chronic pain syndrome Chronic sinusitis Colicky RLQ abdominal pain Constipation Constipation, chronic Depression Depression Diabetes Diabetic foot ulcer Elevated troponin Falls Filtering (vitreous) bleb after glaucoma surgery status Heart murmur History of diabetic ulcer of foot Hypercalcemia Hyperparathyroidism Hypertension Kidney stones alf (current) use of insulin Melena Nonhealing nonsurgical wound Nonhealing nonsurgical wound Nonhealing surgical wound BRYNN (obstructive sleep apnea) Other laborer marine terminal (current) drug therapy Skin fragility Sleep apnea Type 2 diabetes, HbA1C goal < 7% Type 2 diabetes, HbA1c goal < 7% Resolved Acute renal failure Anxiety Bacterial sepsis Cellulitis in diabetic foot Pressure sore on ankle Procedure/Surgical History •Shave biopsy of skin| Service Date: 04/15/2024•Diabetic retinal eye exam| Service Date: 03/24/2022•CAT scan| Service Date: 12/15/2021•Chest X-ray| Service Date: 12/15/2021•Colonoscopy| Service Date: 09/04/2020•Upper GI endoscopy| Service Date: 09/04/2020•Cystoscopy| Service Date: 09/2018•Skin graft| Service Date: 11/2018•Local flap of skin and muscle right foot| Service Date: 10/2018•Endometrial biopsy| Service Date: 03/26/2018•KUB X-ray| Service Date: 03/01/2018•MRIof right upper arm| Service Date: 02/10/2018•Doppler| Service Date: 02/10/2018•Foot X-ray| Service Date: 02/09/2018•Echocardiogram| Service Date: 02/09/2018•Mammogram| Service Date: 01/16/2018•CT of right lower extremity| Service Date: 01/02/2018•Venous doppler ultrasonography| Service Date: 01/01/2018•VASCULAR STUDY| Service Date: 01/01/2018•Polysomnograph| Service Date: 12/29/2017•Cardiac echo| Service Date: 11/30/2017•CT angiography| Service Date: 11/30/2017•CXR - ChestX-ray| Service Date: 11/30/2017•Tympanomastoidectomy| Service Date: 08/09/2017•CT of temporal bone| Service Date: 08/03/2017•Exercise stress test| Service Date: 05/28/2015•Exercise stress test| Service Date: 02/26/2015•History of cholecystectomy•Foot•Colonoscopy•Excision of vaginal septum•Excision of lipoma•Cataract surgery Medications acetaminophen-hydrocodone(acetaminophen-hydrocodone 325 mg-5 mg oral tablet), 1 tab, PO, bid, PRN bacillus coagulans-calcium carbonate(Digestive Advantage Daily Probiotic), 1 gummy, PO, Daily bisacodyl(bisacodyl 5 mg oral delayed release tablet), 10 mg= 2 tab, PO, ONCE, PRN carvedilol(carvedilol 25 mg oral tablet), See Instructions cetirizine(ZyrTEC 10 mg oral tablet), 10 mg= 1 tab, PO, Daily, PRN diabetes supplies(One Touch Verio Glucose Monitor), See Instructions, 1 refills diabetes supplies(One Touch Verio Test Strips), See Instructions, 6 refills diabetes supplies(One Touch Delica Plus (33G) Lancets), See Instructions, 6 refills diabetic supplies(One Touch Ultra Blue Test Strips), See Instructions, 6 refills fluconazole(Diflucan 200 mg oral tablet), 200 mg= 1 tab, PO, Daily, 3 refills insulin aspart(NovoLOG FlexPen) insulin glargine(Lantus Vial 100 units/mL subcutaneous solution), See Instructions, 3 refills isosorbide mononitrate(isosorbide mononitrate 60 mg oral tablet, extended release) multivitamin with minerals(Alive Women's Gummy), 1 gummy, PO, Daily nitroglycerin(nitroglycerin 0.4 mg sublingual tablet), 0.4 mg= 1 tab, SL, q5min, PRN ondansetron(ondansetron 4 mg oral tablet), 4 mg= 1 tab, PO, q4h, PRN, 1 refills rosuvastatin, 40 mg, PO, Daily spironolactone, 25 mg, PO, Daily sucralfate(Carafate 1 g oral tablet), 1 g= 1 tab, PO, ac and hs, 6 refills syringe(BD 0.5 mL Ultra-Fine Insulin Syringe 30G x 1/2"), See Instructions, 2 refills syringe(BD 1 mL Insulin Syringe 25G x 1"), See Instructions, 3 refills torsemide, 40 mg, PO, Daily traMADol(traMADol 50 mg oral tablet), 50 mg= 1 tab, PO, q12h, PRN, 1 refills unlisted medication(TRUE METRIX GLUCOSE TEST STRIP), See Instructions Allergies Coreg Numbness, Numbness of tongue DAPTOmycin rash Januvia Muscle Spasms NSAIDs renal failure Tape rash Toradol renal failure dalbavancin Rash doxycycline rash hydroCHLOROthiazide rash labetalol Headache, Nausea sulfa drugs Rash Social History Smoking Status Never smoked cigarettes Alcohol Frequency:1-2 times per year Employment/School Description:hospital nurse, now on disability Highest education:Post graduate degree(s) Work hazards:Shift/Night work Exercise - Comments: non-weight bearing at present Tobacco Use:Never smoker Intake (IView) Smoking History Cigarette smoker: Never smoked cigarettes Tobacco Product Use: Never used other tobacco products SHX E-Cigarette Use: Never Family History Alcohol abuse: Father and Brother. COPD: Father. Cancer: Mother. Heart attack: MGF and PGF. Hypertension: Mother, Father, MGM and PGF. Stroke: MGM and PGF. Health Status Family Member(s) Immunizations Vaccine Date Status influenza virus vaccine, inactivated 06/28/2024 Given influenza virus vaccine, inactivated 05/31/2023 Given influenza virus vaccine, inactivated 06/28/2022 Given SARS-CoV-2 mRNA (tozinameran 5y-11y) 06/10/2022 Recorded SARS-CoV-2 mRNA (tozinameran 5y-11y) 02/16/2022 Recorded SARS-CoV-2 mRNA (tozinameran 5y-11y) 09/14/2021 Recorded SARS-CoV-2 (COVID-19) mRNA-1273 vaccine 12/19/2020 Recorded SARS-CoV-2 (COVID-19) ChAdOx1 vaccine 12/19/2020 Recorded SARS-CoV-2 (COVID-19) mRNA-1273 vaccine 11/21/2020 Recorded SARS-CoV-2 (COVID-19) ChAdOx1 vaccine 11/21/2020 Recorded SARS-CoV-2 (COVID-19) mRNA-1273 vaccine 11/14/2020 Recorded influenza virus vaccine, inactivated 06/10/2020 Given pneumococcal 23-valent vaccine 07/19/2016 Recorded Recommendations Health Maintenance Pending (in the next year) Due Adult Social Determinants of Health Screening due 12/06/24 Unknown Frequency Adult Tdap/Td Vaccine due 12/06/24 Unknown Frequency Cervical Cancer Screening due 12/06/24 Unknown Frequency Hepatitis C Screening due 12/06/24 One-time only Kidney Health Evaluation due 12/06/24 Unknown Frequency Pneumococcal Vaccine Adults and Adolescents with Chronic Illness due 12/06/24 One-time only Seasonal COVID 19 Vaccine due 12/06/24 Unknown Frequency Shingles Vaccine due 12/06/24 One-time only Due In Future Diabetic Eye Exam not due until 02/20/25 and every 366 day Adult Influenza Vaccine not due until 03/18/25 and every 1 year Body Mass Index not due until 06/11/25 and every 366 day Diabetes Management A1c not due until 10/15/25 and every 366 day Satisfied (in the past 1 year) Satisfied Adult Influenza Vaccine on 06/28/24. Satisfied by RONALD Bueno Karli R Diabetes Management A1c on 10/14/24. Satisfied by SHAHRZAD Magdaleno Lynnae Refused Breast Cancer Screening on 09/13/24. Recorded by SHAHRZAD Rae Cynthia Reason: Patient Refuses Electronic Signature on File Electronically Reviewed/Signed by: Sara Aragon MD Author Signature Dt/Tm:12/06/2024 02:15 PM Tool Lathe Operator [facility] [address] [place] [address] [facility] Patient Care team information Care Team Personnel Name: MD Baker Michael C Position: Physician - Orthopaedic Surg Member Role: Lifetime Relationship Address: [address] [place] [address] [place] Telecom: [phone] Name: MD Aragon Amy L Position: Physician - Family Med Member Role: Primary Care Provider Address: [address] [place] [address] [address] [place] [address] Telecom: [phone] Care Team Related Persons Name: SEDA CHOUDHARY Insurance Providers Guarantor name: CORAZON ROBERT CHOUDHARY Health Plan Information #: 1 Payer: [employer] Member Number: [id number] Policy Number: NA Group Number: [id number] Health Plan Information #: 2 Payer: [employer] Member Number: [id number] Policy Number: NA Group Number: [id number]
--- OUTSIDE RECORDS SUMMARY | 2024-12-29 13:39 | External Medical Summary | Summary of Care ---
Author Name Unknown Organization [facility] Address [address] [facility] [place] [address] Phone [phone] Care Team Providers Care Horse Trekking Guide Name Role Phone Sara Aragon MD Primary Care Provider [phone] Reason for Visit * Reason Onset Date Comments Test Results 12/03/2024 Encounter Details Date Type Department Care Team (Late st Contact Info) Description 12/03/2024 Telephone Cardiology, [facility] [address] [place] [address] Jaylan Dacosta PA-C [address] [place] [address] Test Results Allergies Active Allergy Reactions Criticality Noted Date [...] as of this encounter (statuses as of 12/03/2024) Medications BD INSULIN SYRINGE 25G X 1" 1 ML [facility] 11/11/19 Active insulin glargine (LANTUS) 100 UNIT/ML [...] Tablet by mouth in the morning. 08/04/20 22 Active Systane 0.4-0.3 % Ophthalmic Solution (Artificial [...] or as directed. 45 Tablet 3 04/12/20 23 Active Additional Information Patient not taking.Reported [...] 0.1 % Nasal Solution (Astelin) Administer 1 [place] into nostril in the morning and 1 [place] before bedtime. Active Carvedilol 25 MG Oral [...] 1 Capsule before bedtime. 07/29/20 24 Active Spironolactone 25 MG Oral Tablet (Aldactone)Indicat ions:HTN, goal below 130/80 TAKE 1 TABLET BY MOUTH EVERY DAY IN THE MORNING 90 Tablet 09/12/20 24 Active Nitroglycerin 0.4 MG Sublingual Tablet Sublingual (Nitrostat) place 1 tablet under the tongue if needed every 5 minutes for chest pain for 3 doses IF NO RELIEF AFTER THIRD DOSE CALL PRESCRIBER OR 911. 75 Tablet 3 10/16/19 25 Active Additional Information Patient not taking.Reported on 12/02/2024 documented as of this encounter (statuses as of 12/03/2024) Active Problems Problem Noted Date Diagnosed Date Gastroparesis 04/02/2024 Chronic constipation 04/02/2024 Abnormal nuclear stress test 01/18/2018 HTN, goal below 130/80 01/18/2018 Dyslipidemia, goal LDL below 70 01/18/2018 documented as of this encounter (statuses as of 12/03/2024) Resolved Problems Problem Noted Date Diagnosed Date Resolved Date Type 2 diabetes mellitus wit h stage 3b chronic kidney disease, with long-term current use of insulin 01/24/2022 01/05/2023 Overview: Per CKD protocol Type 2 diabetes mellitus wit h stage 1 chronic kidney disease, with long-term current use of insulin 01/18/2018 01/27/2022 Overview: Per CKD protocol documented as of this encounter (statuses as of 12/03/2024) Immunizations Name Administration Dates Next Due COVID-19 [...] encounter Miscellaneous Notes * Telephone Encounter - Kalpana Millan LPN - 12/03/2024 8:27 AM EDT Mychart message sent * Telephone Encounter - Kalpana Millan LPN - 12/03/2024 8:26 AM EDT ----- Message from Jaylan Dacosta sent at 12/03/2024 7:17 AM EDT ----- Stable documented in this encounter Plan of Treatment [...] 09/04/2020 Colorectal Cancer Screening 09/04/2023 COVID-19 Vaccine (3 - season) 2024 06/10/2022, 02/16/2022, 09/14/2021, Additional history exists GFR 12/02/2025 12/02/2024, 04/0 09/2023, 10/20/2023, Additional history exists Albumin/Creatinine Ratio 04/12/202604/12/2 023, 08/03/2022, 04/21/2021 Lipid Panel 08/03/2027 08/03/2022, 0203/2022, 04/15/2021, Additional history exists Diabetes Screening 12/03/2027 [...] this encounter Medical Devices Implanted Type Area Business Practices Officer Device Identifier Shelf Expiration Date Model / Serial / Lot Lens Intraoc 21.0 - [id number] - [id number] Implanted:Qty: 1 on 09/08/2020 by Gabriel Poe MD at OR [facility] Right: Eye [employer] 11/15/2024 [id number] / [id number] / [id number] Lens Intraoc 21.0 - [id number] - [id number] Implanted:Qty: 1 on 09/24/2020 by Gabriel Poe MD at OR [facility] Left: Eye [employer] 09/17/2024 [id number] / [id number] / documented as of this encounter Care Teams Horse Trekking Guide Relationship Specialty Start Date End Date Sara Aragon MD [address] [place] [address] 1 [place] [address] PCP - General Family Medicine 11/13/17 documented as of this encounter
--- OUTSIDE RECORDS SUMMARY | 2024-12-29 13:39 | External Medical Summary | Summary of Care ---
Author Name Unknown Organization [facility] Address [address] [facility] [place] [address] Phone [phone] Care Team Providers Care Foxing Cutting Machine Operator Name Role Phone Sara Aragon MD Primary Care Provider [phone] Reason for Visit * Reason Onset Date Comments Home Monitoring Telephone 10/29/2024 Encounter Details Date Type Department Care Team (Late st Contact Info) Description 10/29/2024 Telephone Nephrology, [facility] [address] [facility] [place] [address] Maria Isabel Beltre MD [address] [facility] [place] [address] Home Monitoring Telephone Allergies Active Allergy Reactions Criticality Noted Date [...] as of this encounter (statuses as of 11/05/2024) Medications BD INSULIN SYRINGE 25G X 1" 1 ML MISC 8 Active insulin glargine (LANTUS) 100 UNIT/ML injection Inject 80 Units under the skin in the morning and 80 Units before bedtime. 1 Each 0 Active Alive Once Daily Womens 50+ Oral Tablet Take by mouth daily. Gummy Active Bisacodyl 5 MG Oral Tablet Delayed Release (Dulcolax) Take 2 Tablets by mouth as needed. Active Digestive Advantage Gummies Oral Tablet Chewable Take by mouth 2 Each 2 times a day . Active Aspirin EC 81 MG Oral Tablet Delayed Release Take 4 Tablets by mouth once as needed (for chest pain). Pt reports currently taking up to 12 tablets 81mg daily 2 Active Vitamin D3 25 MCG (1000 UT) Oral Tablet (Vitamin D3) Take 1 Tablet by mouth in the morning. 2 Active Systane 0.4-0.3 % Ophthalmic Solution (Artificial Tears) Instill into both eyes as needed for Dry eyes. Active Sucralfate 1 GM Oral Tablet (Carafate) Take 1 Tablet by mouth in the morning and 1 Tablet at noon and 1 Tablet in the evening and 1 Tablet before bedtime. As needed. 3 Active Potassium Chloride Angy ER 10 MEQ Oral Tablet Extended Release Take one tab on days that you take torsemide or as directed. 45 Tablet 3 3 Active Rosuvastatin Calcium 40 MG Oral Tablet (Crestor) Take 1 Tablet by mouth daily. 90 Tablet 3 3 Active Ondansetron HCl 4 MG Oral Tablet (Zofran) take 1 tablet by mouth every 8 hours if needed for nausea 20 Tablet 1 3 Active Allopurinol 100 MG Oral Tablet (Zyloprim)Indicati ons:Hyperuricemia Take 2 Tablets by mouth in the morning. 60 Tablet 11 4 Active NovoLOG 100 UNIT/ML Injection Solution INJECT 20-30 UNITS UNDER THE SKIN 3 TIMES A DAY WITH MEALS PLUS SLIDING SCALE 4 Active HYDROcodone-Acetam inophen 10-325 MG Oral Tablet Take 0.5 Tablets by mouth every 8 hours as needed. 4 Active Ezetimibe 10 MG Oral Tablet (Zetia)Indications :Dyslipidemia, goal LDL below 70 Take 1 Tablet by mouth daily. 31 Tablet 5 4 Active Isosorbide Mononitrate ER 60 MG Oral Tablet Extended Release 24 Hour (Imdur)Indications :Abnormal nuclear stress test Take 1.5 Tablets by mouth in the morning. 135 Tablet 3 4 Active Naloxegol Oxalate 25 MG Oral Tablet (Movantik) Take 1 Tablet by mouth in the morning. 90 Tablet 3 4 Active ZyrTEC Allergy 10 MG Oral Capsule (Cetirizine HCl) Take 1 Capsule by mouth in the morning. Active Azelastine HCl 0.1 % Nasal Solution (Astelin) Administer 1 [place] into nostril in the morning and 1 [place] before bedtime. Active Carvedilol 25 MG Oral Tablet (Coreg)Indications :HTN, goal below 130/80,Chronic diastolic congestive heart failure (HCC),ASCVD (arteriosclerotic cardiovascular disease) TAKE 1 TABLET BY MOUTH TWICE A DAY - MORNING AND BEDTIME 180 Tablet 3 4 Active Torsemide 20 MG Oral Tablet (Demadex)Indicatio ns:Chronic diastolic congestive heart failure (HCC) TAKE 2 TABLETS BY MOUTH IF NEEDED DIRECTED BY 180 Tablet 3 4 Active Clindamycin HCl 300 MG Oral Capsule Take 1 Capsule by mouth in the morning and 1 Capsule at noon and 1 Capsule before bedtime. 4 Active Spironolactone 25 MG Oral Tablet (Aldactone)Indicat ions:HTN, goal below 130/80 TAKE 1 TABLET BY MOUTH EVERY DAY IN THE MORNING 90 Tablet 4 Active Nitroglycerin 0.4 MG Sublingual Tablet Sublingual (Nitrostat) place 1 tablet under the tongue if needed every 5 minutes for chest pain for 3 doses IF NO RELIEF AFTER THIRD DOSE CALL PRESCRIBER OR 911. 75 Tablet 3 5 Active documented as of this encounter (statuses as of 11/05/2024) Active Problems Problem Noted Date Diagnosed Date Gastroparesis 04/02/2024 Chronic constipation 04/02/2024 Abnormal nuclear stress test 01/18/2018 HTN, goal below 130/80 01/18/2018 Dyslipidemia, goal LDL below 70 01/18/2018 documented as of this encounter (statuses as of 11/05/2024) Resolved Problems Problem Noted Date Diagnosed Date Resolved Date Type 2 diabetes mellitus wit h stage 3b chronic kidney disease, with long-term current use of insulin 01/24/2022 01/05/2023 Overview: Per CKD protocol Type 2 diabetes mellitus wit h stage 1 chronic kidney disease, with long-term current use of insulin 01/18/2018 01/27/2022 Overview: Per CKD protocol documented as of this encounter (statuses as of 11/05/2024) Immunizations Name Administration Dates Next Due COVID-19 [...] encounter Miscellaneous Notes * Telephone Encounter - Karlie Boss LPN - 11/01/2024 2:[address] Beltre, Please see previous note for possible transfer to chronic disease management program. Thank you, Karlie Boss LPN * Telephone Encounter - Karlie Boss LPN - 10/29/2024 1:02 PM EST [place] [id number] Corazon Shea Patient is currently enrolled in the [facility] HTN Program and has not alerted for out ofbound readings for > 1 month. Per program criteria, please let us know your recommendation for continued monitoring by respondingback to this message: Option 1: Intensify BP goal <=130/80 or <=120/80 (specify please). (Current alarm for averageBP over 7 days is >= 130/80) Option 2: Remain in current program with no changes for an additional 3 months prior to next evaluation. Option 3: Step down to “[facility] Chronic Disease Maintenance Program” Note for Option 3 (step-down to maintenance program) nurses will no longer monitor readings, these are available in EPIC synopsis flowsheets and workbench reports for review. Patients will be educated that they are responsible for contacting clinic directly with any concerns. Thank you, [facility] Monitoring Center Staff Karlie Boss LPN documented in this encounter Plan of Treatment Upcoming Encounters Date Type Department Care Team (Late st Contact Info) Description 12/02/2024 10:30 AM EDT Office Visit Cardiology, [facility] [address] [place] [address] Jaylan Dacosta PA-C [address] [place] [address] Scheduled Procedures Name Priority Associated Diagnoses Date/Ti [...] Colorectal Cancer Screening 09/04/2023 COVID-19 Vaccine ( - season) 2024 06/10/2022, 02/16/2022, 09/14/2021, Additional history exists GFR 12/17/2024 12/18/2023, 02/0 10/2023, 09/27/2023, Additional history exists Albumin/Creatinine Ratio 04/12/2026 023, 08/03/2022, 04/21/2021 Diabetes Screening 12/17/2026 12/18/2023, 0 10/20/2023, 09/27/2023, Additional history exists Lipid Panel 08/03/2027 08/03/2022, 020 03/2022, 04/15/2021, Additional history exists Influenza Vaccine (FLU shot) [...] this encounter Medical Devices Implanted Type Area Branch Logistics Supervisor Device Identifier Shelf Expiration Date Model / Serial / Lot Lens Intraoc 21.0 - [id number] - [id number] Implanted:Qty: 1 on 09/08/2020 by Gabriel Poe MD at OR [facility] Right: Eye [employer] 11/15/2024 [id number] / [id number] / [id number] Lens Intraoc 21.0 - [id number] - [id number] Implanted:Qty: 1 on 09/24/2020 by Gabriel Poe MD at OR [facility] Left: Eye [employer]OM[employer] 09/17/2024 [id number] / [id number] / documented as of this encounter Care Teams Foxing Cutting Machine Operator Relationship Specialty Start Date End Date Sara Aragon MD [address] [facility] [place] [address] PCP - General Family Medicine 11/13/17 documented as of this encounter
--- OUTSIDE RECORDS SUMMARY | 2024-12-29 13:39 | External Medical Summary | Summary of Care ---
Author Name Unknown Organization [facility] Address [address] [facility] [place] [address] Phone [phone] Care Team Providers Care Complex Care Nurse Name Role Phone Sara Aragon MD Primary Care Provider [phone] Reason for Visit * Reason Comments Follow Up Encounter Details Date Type Department Care Team (Latest Contact Info) Description 12/02/2024 10:30 AM EDT Office Visit Cardiology, [facility] [address] [place] [id number] Jaylan Dacosta PA-C [address] [place] [id number] Chronic diastolic congestive heart failure (HCC)*; Heart failure, diastolic, with acute decompensation (HCC); HTN, goal below 130/80; ASCVD (arteriosclerotic cardiovascular disease); Dyslipidemia, goal LDL below 70; Abnormal nuclear stress test; Renal dysfunction; Nonrheumatic mitral valve regurgitation; Encounter for monitoring diuretic therapy Allergies Active Allergy Reactions Criticality Noted Date [...] as of this encounter (statuses as of 12/02/2024) Medications BD INSULIN SYRINGE 25G X 1" 1 ML MISC 11/11/19 18 Active insulin glargine (LANTUS) 100 UNIT/ML injection Inject 80 Units under the skin in the morning and 80 Units before bedtime. 1 Each 11/21/19 20 Active Alive Once Daily Womens 50+ Oral [...] up to 12 tablets 81mg daily 04/20/20 22 Active Vitamin D3 25 MCG (1000 UT) [...] 1 Tablet before bedtime. As needed. 11/04/19 23 Active Potassium Chloride Angy ER 10 MEQ [...] 0.1 % Nasal Solution (Astelin) Administer 1 [place] into nostril in the morning and 1 [place] before bedtime. 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 3b chronic kidney disease, with long-term current use of insulin 01/24/2022 01/05/2023 Overview: Per CKD protocol Type 2 diabetes mellitus wit h stage 1 chronic kidney disease, with long-term current use of insulin 01/18/2018 01/27/2022 Overview: Per CKD protocol documented as of this encounter (statuses as of 12/02/2024) Immunizations Name Administration Dates Next Due COVID-19 [...] on file documented as of this encounter Last Filed Vital Signs Vital Sign Reading Time Taken Comments Blood Pressure 108/54 12/02/2024 10:36 AM EDT Pulse 64 12/02/2024 10:36 AM EDT Temperature - - Respiratory Rate 18 12/02/2024 10:36 AM EDT Oxygen Saturation - - Inhaled Oxygen Concentration - - Weight 139.7 kg (308 lb) 12/02/2024 10:36 AM EDT Height - - Body Mass Index 51.25 06/09/2023 8:25 AM EDT documented in this encounter Progress Notes * Jaylan Dacosta PA-C - 12/02/2024 10:30 AM EDT History of Present Illness: Corazon Shea is a 59 year old female here today for cardiology evaluation. Patient notes chronic right foot wound recently prescribed doxycycline 100 mg twice per day times 14 days by the [facility]. Shortly after completing antibiotic course patient noted left flank pain. She became concerned due to her history of 8 prior kidney stones and urosepsis and decreasedtorsemide dosing from 60 mg/day to 40 mg/day approximately 1.5 weeks ago. Shortly thereafter patient began to experience worsening fluid retention primarily in abdomen and lower extremities. Chest pain has been quiescent, back to a muted buzzing discomfort. No recent really sharp pain. No new or worsening palpitations. No syncope. 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 Duodenal ulcer. Gastritis. Multiple perceived medication intolerances/allergies Social History: Nonsmoker. No significant alcohol. 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 Disabled. Family History: Mother with glioblastoma. Father with HTN and COPD. CAD in her maternal grandfather. Complete Review of Systems is as stated above, negative, or noncontributory. Review of patient's allergies indicates: Allergen Reactions Augmentin [Amoxicillin-Pot Clavulanate] Other (Please comment) ST depression Ceftazidime Other reaction(s): renal failure Dalbavancin Other reaction(s): RASH ALL OVER FACE AND CHEST Ibuprofen Renal complications Other Allergy (See Comments) Renal complications Pt reports "no diuretics" reaction acute renal failure Sitagliptin Other reaction(s): muscle spasms Toradol [Ketorolac Tromethamine] Renal complications Vancomycin Renal complications Pt reports acute renal failure- when given with fortaz. Doxycycline Rash Hctz [Hydrochlorothiazide] Rash Tape [Adhesive Tape] Other (Please comment) blisters Carvedilol Other reaction(s): lip numbness Current Outpatient Medications Medication Sig Dispense Refill BD INSULIN SYRINGE 25G X 1" 1 ML MISC insulin glargine (LANTUS) 100 UNIT/ML injection Inject 80 Units under the skin in the morning and 80 Units before bedtime. 1 Each Alive Once Daily Womens 50+ Oral Tablet Take by mouth daily. Gummy Bisacodyl 5 MG Oral Tablet Delayed Release (Dulcolax) Take 2 Tablets by mouth as needed. Digestive Advantage Gummies Oral Tablet Chewable Take by mouth 2 Each 2 times a day . Aspirin EC 81 MG Oral Tablet Delayed Release Take 4 Tablets by mouth once as needed (for chest pain). Pt reports currently taking up to 12 tablets 81mg daily Vitamin D3 25 MCG (1000 UT) Oral Tablet (Vitamin D3) Take 1 Tablet by mouth in the morning. Systane 0.4-0.3 % Ophthalmic Solution (Artificial Tears) Instill into both eyes as needed for Dry eyes. Sucralfate 1 GM Oral Tablet (Carafate) Take 1 Tablet by mouth in the morning and 1 Tablet at noon and 1 Tablet in the evening and 1 Tablet before bedtime. As needed. Potassium Chloride Angy ER 10 MEQ Oral Tablet Extended Release Take one tab on days that you take torsemide or as directed. 45 Tablet 3 Rosuvastatin Calcium 40 MG Oral Tablet (Crestor) Take 1 Tablet by mouth daily. 90 Tablet 3 Ondansetron HCl 4 MG Oral Tablet (Zofran) take 1 tablet by mouth every 8 hours if needed for [id number] Tablet 1 Allopurinol 100 MG Oral Tablet (Zyloprim) Take 2 Tablets by mouth in the morning. 60 Tablet 11 NovoLOG 100 UNIT/ML Injection Solution INJECT 20-30 UNITS UNDER THE SKIN 3 TIMES A DAY WITH MEALS PLUS SLIDING SCALE HYDROcodone-Acetaminophen 10-325 MG Oral Tablet Take 0.5 Tablets by mouth every 8 hours as needed. Ezetimibe 10 MG Oral Tablet (Zetia) Take 1 Tablet by mouth daily. 31 Tablet 5 Isosorbide Mononitrate ER 60 MG Oral Tablet Extended Release 24 Hour (Imdur) Take 1.5 Tablets by mouth in the morning. 135 Tablet 3 Naloxegol Oxalate 25 MG Oral Tablet (Movantik) Take 1 Tablet by mouth in the morning. 90 Tablet 3 ZyrTEC Allergy 10 MG Oral Capsule (Cetirizine HCl) Take 1 Capsule by mouth in the morning. Azelastine HCl 0.1 % Nasal Solution (Astelin) Administer 1 [place] into nostril in the morning and 1 [place] before bedtime. Carvedilol 25 MG Oral Tablet (Coreg) TAKE 1 TABLET BY MOUTH TWICE A DAY - MORNING AND BEDTIME 180 Tablet 3 Torsemide 20 MG Oral Tablet (Demadex) TAKE 2 TABLETS BY MOUTH IF NEEDED DIRECTED BY MD 180 Tablet 3 Clindamycin HCl 300 MG Oral Capsule Take 1 Capsule by mouth in the morning and 1 Capsule at noon and 1 Capsule before bedtime. Spironolactone 25 MG Oral Tablet (Aldactone) TAKE 1 TABLET BY MOUTH EVERY DAY IN THE MORNING 90 Tablet 0 Nitroglycerin 0.4 MG Sublingual Tablet Sublingual (Nitrostat) place 1 tablet under the tongue if needed every 5 minutes for chest pain for 3 doses IF NO RELIEF AFTER THIRD DOSE CALL PRESCRIBER OR 911. 75 Tablet 3 No current facility-administered medications for this visit. OBJECTIVE/PHYSICAL EXAMINATION: BP 108/54 (BP Site: Left Arm) | Pulse 64 | Resp 18 | Wt (!) 139.7 kg (308 lb) | BMI 51.25 kg/m² | BSA 2.53 m² Examined in a chair General: A&Ox3. NAD. HENT: Normocephalic. Atraumatic. Eyes: PER. Conjunctiva pink, sclera clear. Neck: No carotid bruits. No overt JVD. Heart: RRR, 60 bpm. Grade II/ systolic murmur at left sternal border and apex. Lungs: Clear to auscultation. Abdomen: +BS. Somewhat soft. Extremities: Right lower extremity boot. 1+ edema. Limited neurological examination is without focal deficits. Data: December 16, 2021 TTE Interpretation Summary ([facility], Dr. Recinos): The study is technically adequate. Compared to study dated July 31, 2021, posterior and inferior wall motion abnormality now present. LV systolic function is normal. EF 55 to 60%. Mild concentric LVH. Moderate size apical, inferior, and posterior wall motion abnormality with hypokinesis of the segments. Grade 3 diastolic dysfunction. Moderate mitral regurgitation. Mild tricuspid regurgitation. Estimated systolic pulmonary pressure 44 mmHg. February 08, 2022 Lexiscan Interpretation Summary (as per Dr. Adams): Abnormal 2 day Lexiscan myocardial perfusion imaging study. Stress images reveal a large sized apical, anteroseptal, lateral and inferolateral perfusion defect. Resting images reveal partial reperfusion of the apical, anterolateral, and inferolateral perfusion defect. Findings consistent with inferolateral scar, with superimposedperi-infarct ischemia, as well as significant reversible ischemia of the LV apex and anterolateral myocardial renteria. Quantitative analysis suggests significant reversibility including perfusion defect in the circumflex territory that is 64% reversible. Gated SPECT imaging is technically limited dueto few counts in the inferolateral, anterolateral, apical myocardium, and therefore the wall motionand calculated LVEF is felt to not be reliable. Consider referring to an alternative imaging modality for accurate ejection fraction such as echocardiography. Compared to the images obtained at the time of the prior study dated 12/18/2017, a relatively small reversible perfusion defect noted at that time encompassing the anteroseptum, and apex. Although this territory is abnormal on the present study, there is a new large inferolateral, lateral perfusion defect which was not present in 2018. Current findings suggest multi vessel distribution ischemia/infarction. With most significant amount of myocardium jeopardy correlating with the circumflex coronary territory. August 27, 2024 TTE Interpretation Summary (as per Dr. Saldivar): The left ventricular cavity size is normal. The LV wall thickness is normal. The left ventricular wall motion is normal. The qualitative LV ejection fraction is 55- 59% (normal). The left ventricular diastolic function is moderately abnormal (grade II). The left atrium is mildly enlarged. Mild mitral regurgitation is present. There is no evidence of pulmonary hypertension Labs from 06/07/2024: Cholesterol 117 LDL 49 HDL 37 Triglycerides 153 TSH 2.821 HgA1c 10.6%. Sodium 140 Potassium 4.0 BUN 36 Creatinine 1.36 Calcium 9.7 AST 16 ALT 16 Alk Phos 92. Chemistry panel on October 14, 2024 demonstrated the following: Sodium 138. Potassium 4.5. [id number]. Bicarb 27. Anion gap 9. BUN 38. Creatinine 1.60. Hemoglobin A1c 10.6%. AST 17. ALT 18. Alk-phos 106. Total bilirubin 0.8. Calcium 9.2. December 02, 2024 EKG: Sinus bradycardia 59 bpm. Low-voltage QRS. Nonspecific ST-T wave abnormality. QTc 467 ms. When compared to prior available tracing dated December 18, 2023, there is no significant change. ASSESSMENT: Acute decompensated diastolic congestive heart failure Prior abnormal nuclear stress test, suspected multivessel coronary artery disease manage conservatively - poor access, renal dysfunction, chronic wounds, limited grafts, etc. Stable [place] Cardiovascular Society Class 2 angina Longstanding diabetes Renal dysfunction. Past poor tolerance to Sameer/ARB Hyponatremia Recurrent right lower extremity wounds, chronic refractory osteomyelitis, diabetic ulcer, Charcot joint - followed by the [facility] Hypertension Dyslipidemia RECOMMENDATIONS/PLAN: Increase torsemide dosing back to 60 mg/day. Continue conservative medical management. Retrial of low-dose ARB (Losartan 12.5 mg/day) previously discussed and declined. Cardiology follow-up in 3-4 months or as needed. ER with emergencies. Jaylan Dacosta PA-C Department of Cardiology I spent a total of 20-29 minutes (exact time 28 mins) on the date of service in preparation, delivery, and documentation of the care provided to Corazon Shea excluding any time spent in the performance of separately billed services. This visit involved medical care services related to at least one serious condition or complex condition requiring ongoing care. This chart was completed in part utilizing [employer] Speech Voice Recognition Software. Grammatical errors, random word insertions, prounoun errors, and incomplete sentences are an occasional consequence of this system due to software limitations, ambient noise, and hardware issues. Any formal questions or concerns about the content, text, or information contained within the body of this dictation should be directly addressed to the provider for clarification. documented in this encounter Procedure Notes * Alberto Saldivar MD - 12/02/2024 10:45 AM EDTAssociated Order(s): EKG REASON FOR STUDY: Annual;Annual CONCLUSIONS: Sinus bradycardia Low voltage QRS, consider pulmonary disease, pericardial effusion, or normal variant Nonspecific ST and T wave abnormality Abnormal ECG When compared with ECG of 18-Dec-2023 09:19, No significant change was found Ventricular Rate: 59 Atrial Rate: 59 UT Interval: 162 QRS Duration: 96 QT/QTc: 472/467 ms P-R-T [place]: 56 : -27 : 91 degrees documented in this encounter Nursing Notes * Citlali Dent CMA - 12/02/2024 10:23 AM EDT Examination Room: 2 Name: Corazon Shea Date of : (1965). Reason for Visit: f/u Interim Hospitalization(s): denies Problems/Concerns: Has been having "sharp jabs" in neck area recently, thinks it may be related to failed PICC line attempt in 2018 Chest Pain/SOB: States CP has been getting better recently [facility] Discussed: Yes My [facility] is a way you can talk to your provider online through e-mail. Would you like to sign up? I can activate it for you? ALREADY ACTIVE Patient was instructed to not get up on the exam table until directed and assisted by their provider; patient is to remain seated in the chair/ wheelchair/ exam table for fall prevention and safety reasons. Patient is aware to have assistance to step down off exam table with personnel. Patient voiced full comprehension of instructions. documented in this encounter Plan of Treatment Pending Results Name Type Priority Associated Diagnoses Date /Time MAGNESIUM Lab Routine Chronic diastolic congestive heart failure (HCC) Encounter for monitoring diuretic therapy 12/02/2024 11:22 AM EDT Scheduled Orders Name Type Priority Associated Diagnoses Orde r Schedule MAGNESIUM Lab Routine Chronic diastolic congestive heart failure (HCC) Encounter for monitoring diuretic therapy Expected: 12/02/2024, Expires: 12/02/2025 Scheduled Procedures Name Priority Associated Diagnoses Date/Ti [...] 023, 08/03/2022, 04/21/2021 Lipid Panel 08/03/2027 08/03/2022, 02/0 03/2022, 04/15/2021, Additional history exists Diabetes Screening [...] this encounter Medical Devices Implanted Type Area Data Modeler Device Identifier Shelf Expiration Date Model / Serial / Lot Lens Intraoc 21.0 - [id number] - [id number] Implanted:Qty: 1 on 09/08/2020 by Gabriel Poe MD at OR [facility] Right: Eye [employer] 11/15/2024 [id number] / [id number] / [id number] Lens Intraoc 21.0 - [id number] - [id number] Implanted:Qty: 1 on 09/24/2020 by Gabriel Poe MD at OR [facility] Left: Eye [employer] 09/17/2024 [id number] / [id number] / documented as of this encounter Procedures Procedure Name Priority Date/Time Associated Diagnosis Comments UT ECG ROUTINE ECG W/LEAST 12 LDS W/I&R Routine 12/02/2024 10:45 AM EDT Chronic diastolic congestive heart failure (HCC) Heart failure, diastolic, with acute decompensation (HCC) documented in this encounter Results * (ABNORMAL) BASIC METABOLIC PANEL (12/02/2024 11:22 AM EDT) BUN 43(H) 6 - 20 mg/dL 12/02/2024 12:39 PM EDT [facility] CREATININE 1.5(H) 0.5 - 1.0 mg/dL 12/02/2024 12:39 PM EDT [facility] EGFR 40(L) >=60 mL/min 12/02/2024 12:39 PM EDT [facility] Comment:eGFR is calculated b ased on the CKD-EPI 2020 equation. SODIUM 140 135 - 146 mmol/L 12/02/2024 12:39 PM EDT [facility] POTASSIUM 4.5 3.5 - 5.1 mmol/L 12/02/2024 12:39 PM EDT [facility] CHLORIDE 98 98 - 107 mmol/L 12/02/2024 12:39 PM EDT [facility] CO2 27 22 - 32 mmol/L 12/02/2024 12:39 PM EDT [facility] ANION GAP 15 7 - 15 mmol/L 12/02/2024 12:39 PM EDT [facility] GLUCOSE 134(H) 70 - 120 mg/dL 12/02/2024 12:39 PM EDT [facility] CALCIUM 10.1 8.4 - 10.2 mg/dL 12/02/2024 12:39 PM EDT [facility] Blood Venous blood specimen / Unknown Venipuncture / Unknown 12/02/2024 11:22 AM EDT 12/02/2024 11:22 AM EDT Jaylan Dacosta PA-C LAB BLOOD ORDERABLES Final Result Performing Organization Address [facility] de Phone Number [id number] [place] [address] * EKG (12/02/2024 10:45 AM EDT) 12/02/2024 10:4 5 AM EDT Narrative Procedure Note Alberto Saldivar MD - 12/02/2024 10:45 AM EDT REASON FOR STUDY: Annual;Annual CONCLUSIONS: Sinus bradycardia Low voltage QRS, consider pulmonary disease, pericardial effusion, ornormal variant Nonspecific ST and T wave abnormality Abnormal ECG When compared with ECG of 18-Dec-2023 09:19, No significant change was found Ventricular Rate: 59 Atrial Rate: 59 UT Interval: 162 QRS Duration: 96 QT/QTc: 472/467 ms P-R-T [place]: 56 : -27 : 91 degrees us Jaylan Dacosta PA-C EKG Final Resul t Performing Organization Address City/[facility]/ZIP Co de Phone Number [facility] documented in this encounter Visit Diagnoses Diagnosis Chronic diastolic congestive heart failure (HCC)- Primary Chronic diastolic heart failure Heart failure, diastolic, with acute decompensation (HCC) Acute on chronic diastolic heart failure HTN, goal below 130/80 Unspecified essential hypertension ASCVD (arteriosclerotic cardiovascular disease) Unspecified cardiovascular disease Dyslipidemia, goal LDL below 70 Other and unspecified hyperlipidemia Abnormal nuclear stress test Other nonspecific abnormal cardiovascular system function study Renal dysfunction Unspecified disorder of kidney and ureter Nonrheumatic mitral valve regurgitation Encounter for monitoring diuretic therapy Encounter for therapeutic drug monitoring documented in this encounter Care Teams Complex Care Nurse Relationship Specialty Start Date End Date Sara Aragon MD [address] [facility] [address] [place] [address] PCP - General Family Medicine 11/13/17 documented as of this encounter
--- OUTSIDE RECORDS SUMMARY | 2024-12-29 13:39 | External Medical Summary | Summary of Care ---
Author Name Unknown Organization [facility] Address [address] [place] [address] Phone [phone] Care Team Providers Care Document Photographer Name Role Phone Sara Aragon MD Primary Care Provider [phone] Reason for Visit * Reason Onset Date Comments Remote Patient Monitoring Alert 11/18/2024 Encounter Details Date Type Department Care Team (Late st Contact Info) Description 11/18/2024 Home Monitoring Care Coordination [address], [place] [id number] HeppdingMattie LPN HTN, goal below 130/80* Allergies Active [...] as of this encounter (statuses as of 11/18/2024) Medications BD INSULIN SYRINGE 25G X 1" 1 ML [facility] Active insulin glargine (LANTUS) 100 UNIT/ML [...] 0.1 % Nasal Solution (Astelin) Administer 1 [place] into nostril in the morning and 1 [place] before bedtime. Active Carvedilol 25 MG Oral [...] as of this encounter (statuses as of 11/18/2024) Active Problems Problem Noted Date Diagnosed Date Gastroparesis 04/02/2024 Chronic constipation 04/02/2024 Abnormal nuclear stress test 01/18/2018 HTN, goal below 130/80 01/18/2018 Dyslipidemia, goal LDL below 70 01/18/2018 documented as of this encounter (statuses as of 11/18/2024) Resolved Problems Problem Noted Date Diagnosed Date Resolved Date Type 2 diabetes mellitus wit h stage 3b chronic kidney disease, with long-term current use of insulin 01/24/2022 01/05/2023 Overview: Per CKD protocol Type 2 diabetes mellitus wit h stage 1 chronic kidney disease, with long-term current use of insulin 01/18/2018 01/27/2022 Overview: Per CKD protocol documented as of this encounter (statuses as of 11/18/2024) Immunizations Name Administration Dates Next Due COVID-19 [...] as of this encounter Progress Notes * Santino Rutledge RPh - 11/18/2024 1:37 PM EST [facility] - Hypertension Management Patient Phone Numbers This patient was contacted as part of the [facility] Nephrology 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 Blood Pressure Goal: 130/80 mmHg Type of Alert: [place] Current Hypertension Medications: Spironolactone 25mg once daily in AM Torsemide 20mg 2 tablets as needed (MD direction only) Carvedilol 25mg twice daily ISMO 60mg 1 1/2 tablets every morning Previous antihypertensive use: candesartan, losartan, metolazone Experiencing symptoms related to elevated BP: Yes, chest pain (CHF induced) Systolic Diastolic HR 3-Nov 144 75 58 2-Nov 144 68 56 28-Feb 145 44 59 27-Feb 118 54 54 24-Feb 148 64 60 23-Feb 103 44 57 22-Feb 125 54 56 21-Feb 115 47 65 20-Feb 104 48 54 19-Feb 105 43 52 17-Feb 112 50 55 14-Feb 117 58 66 13-Feb 108 68 57 10-Feb 118 53 62 Systolic Diastolic HR Average 122 55 58 Hi 148 75 66 Lo 103 43 52 Range 45 32 14 BP Readings from Last 3 Encounters: 07/30/24 132/76 04/11/24 125/59 12/18/23 108/60 Pulse Readings from Last 3 Encounters: 07/30/24 56 04/11/24 62 12/18/23 68 Recent Labs Units 12/18/23 1001 10/20/23 0000 09/27/23 1251 04/11/23 0923 SODIUM - [facility] mmol/L 137 -- 137 136 POTASSIUM - [facility] mmol/L 4.0 3.8 3.9 3.7 CHLORIDE - [facility] mmol/L 96* -- 99 95* CO2 - [facility] mmol/L 29 -- 23 27 CREATININE - [facility] mg/dL 1.1* 1.46* 1.1* 1.1* BUN - [facility] mg/dL 19 -- 24* 27* ASSESSMENT & PLAN: Spoke to the patient and discussed her elevated BP the past few days. She is the midst of a CHF exacerbation which is causing some chest pain and SOB. She also has a foot infection being treated withDoxycycline. MEDICATION CHANGES: none Hypertension Medications: Spironolactone 25mg once daily in AM Torsemide 20mg 2 tablets as needed (MD direction only) Carvedilol 25mg twice daily ISMO 60mg 1 1/2 tablets every morning HEALTH MAINTENANCE INTERVENTIONS: Labs: Ordered & Scheduled: Up to date FOLLOW UP: As needed. Santino B[facility] Clinical Pharmacist - Corporate Communications Manager Medication Therapy Management [facility] 11/18/2024, 1:37 PM * Mattie Varghese LPN - 11/18/2024 9:03 AM EST Corazon Shea [id number] Corazon Shea is currently participating in the [facility]365 Hypertension Management Program and had a reading on 11/17/2024 of 144/68. Pt has alerted for an Average BP over 7 days >/= 130/80 . Parameters are currently set as follows: Average BP over 7 days >/= 130/80 Singular Systolic BP Reading </= 90 or >/=180 Singular Diastolic BP Reading </= 50 or >/=120 Patient is not reporting new symptoms, however pt sent the following text, "The labs for kidneys are bad. My right foot is infected again and I am on Doxycycline. Together all of that is making the pressure go up. I see [facility] weekly and see Cardiology 11/04 for CHF/angina. Health isn't good.??" The patient does have all her blood pressure medications and is taking them as prescribed. Please review the recent history of home RPM readings in Epic Synopsis Flowsheets and work with your clinical staff if any additional actions or interventions are required. If you would like to customize the alert parameters and/or instructions for this patient, please let me know and we can have them changed. Thank you! Mattie Varghese LPN documented in this encounter Plan of Treatment Upcoming Encounters Date Type Department Care Team (Late st Contact Info) Description 12/02/2024 10:30 AM EDT Office Visit Cardiology, [facility] [address] [place] [address] Jaylan Dacosta PA-C [address] [place] [id number] Scheduled Procedures Name Priority Associated Diagnoses Date/Ti [...] Additional history exists Lipid Panel 08/03/2027 08/03/2022, 02/0 03/2022, 04/15/2021, Additional history exists Influenza Vaccine [...] this encounter Medical Devices Implanted Type Area Long Term Care Social Worker Device Identifier Shelf Expiration Date Model / Serial / Lot Lens Intraoc 21.0 - [id number] - [id number] Implanted:Qty: 1 on 09/08/2020 by Gabriel Poe MD at OR [facility] Right: Eye [employer] 11/15/2024 [id number] / [id number] / [id number] Lens Intraoc 21.0 - [id number] - [id number] Implanted:Qty: 1 on 09/24/2020 by Gabriel Poe MD at OR [facility] Left: Eye [employer]CH [employer] LOMB 09/17/2024 [id number] / [id number] / documented as of this encounter Visit Diagnoses Diagnosis HTN, goal below 130/80- Primary Unspecified essential hypertension documented in this encounter Care Teams Document Photographer Relationship Specialty Start Date End Date Sara Aragon MD [address] [place] [address] PCP - General Family Medicine 11/13/17 documented as of this encounter
--- OUTSIDE RECORDS SUMMARY | 2024-12-29 13:39 | External Medical Summary | Summary of Care ---
Author Name Unknown Organization [facility] Address [address] [place] [address] Phone [phone] Care Team Providers Care Coffin Maker Name Role Phone Sara Aragon MD Primary Care Provider [phone] Reason for Visit * Reason Onset Date Comments Home Monitoring Telephone 08/27/2024 Encounter Details Date Type Department Care Team (Late st Contact Info) Description 08/27/2024 Telephone Care Coordination [address] [place], [place] [id number] Maria Isabel Beltre MD [address] [place] [address] Home Monitoring Telephone Allergies Active Allergy Reactions [...] as of this encounter (statuses as of 11/27/2024) Medications BD INSULIN SYRINGE 25G X 1" [...] as directed. 45 Tablet 3 023 Active Rosuvastatin Calcium 40 MG Oral Tablet (Crestor) Take 1 Tablet by mouth daily. 90 Tablet 3 023 Active Ondansetron HCl 4 MG Oral Tablet (Zofran) take 1 tablet by mouth every 8 hours if needed for nausea 20 Tablet 1 023 Active Allopurinol 100 MG Oral Tablet (Zyloprim)Indicat ions:Hyperuricemi a Take 2 Tablets by mouth in the morning. 60 Tablet 11 024 Active NovoLOG 100 UNIT/ML Injection Solution INJECT 20-30 UNITS UNDER THE SKIN 3 TIMES A DAY WITH MEALS PLUS SLIDING SCALE 024 Active HYDROcodone-Aceta minophen 10-325 MG Oral Tablet Take 0.5 Tablets by mouth every 8 hours as needed. 024 Active Ezetimibe 10 MG Oral Tablet (Zetia)Indication s:Dyslipidemia, goal LDL below 70 Take 1 Tablet by mouth daily. 31 Tablet 5 024 Active Isosorbide Mononitrate ER 60 MG Oral Tablet Extended Release 24 Hour (Imdur)Indication s:Abnormal nuclear stress test Take 1.5 Tablets by mouth in the morning. 135 Tablet 3 024 Active Naloxegol Oxalate 25 MG Oral Tablet (Movantik) Take 1 Tablet by mouth in the morning. 90 Tablet 3 024 Active ZyrTEC Allergy 10 MG Oral Capsule (Cetirizine HCl) Take 1 Capsule by mouth in the morning. Active Azelastine HCl 0.1 % Nasal Solution (Astelin) Administer 1 [place] into nostril in the morning and 1 [place] before bedtime. Active Carvedilol 25 MG Oral [...] CALL PRESCRIBER OR 911. 75 Tablet 3 023 2024 Discontinued(R efill) Spironolactone 25 MG Oral Tablet (Aldactone)Indica tions:HTN, goal below 130/80 Take 1 Tablet by mouth in the morning. 90 Tablet 3 024 2023 Discontinued documented as of this encounter (statuses as of 11/27/2024) Active Problems Problem Noted Date Diagnosed Date Gastroparesis 04/02/2024 Chronic constipation 04/02/2024 Abnormal nuclear stress test 01/18/2018 HTN, goal below 130/80 01/18/2018 Dyslipidemia, goal LDL below 70 01/18/2018 documented as of this encounter (statuses as of 11/27/2024) Resolved Problems Problem Noted Date Diagnosed Date Resolved Date Type 2 diabetes mellitus wit h stage 3b chronic kidney disease, with long-term current use of insulin 01/24/2022 01/05/2023 Overview: Per CKD protocol Type 2 diabetes mellitus wit h stage 1 chronic kidney disease, with long-term current use of insulin 01/18/2018 01/27/2022 Overview: Per CKD protocol documented as of this encounter (statuses as of 11/27/2024) Immunizations Name Administration Dates Next Due COVID-19 [...] encounter Miscellaneous Notes * Telephone Encounter - Mattie Varghese LPN - 08/27/2024 10:04 AM EST [place] [id number] Corazon Shea Patient is currently enrolled in the [facility]365 HTN Program and has not alerted for out ofbound readings for > 1 month. Per program criteria, please let us know your recommendation for continued monitoring by respondingback to this message: Option 1: Intensify BP goal <=120/80 (specify please). (Current alarm for average BP over 7 daysis >= 130/80) Option 2: Remain in current program with no changes for an additional 3 months prior to next evaluation. Option 3: Step down to [facility] Chronic Disease Maintenance Program” Note for Option 3 (step-down to maintenance program) nurses will no longer monitor readings, these are available in EPIC synopsis flowsheets and workbench reports for review. Patients will be educated that they are responsible for contacting clinic directly with any concerns. Thank you, [facility] Monitoring Center Staff Mattie Varghese LPN documented in this encounter Plan of Treatment Upcoming Encounters Date Type Department Care Team (Late st Contact Info) Description 12/02/2024 10:30 AM EDT Office Visit Cardiology, [facility] [address] [place] [address] Jaylan Dacosta PA-C [address] [place] [address] Scheduled Procedures Name Priority Associated Diagnoses Date/Ti [...] 09/14/2021, Additional history exists GFR 12/17/2024 12/18/2023, 10/2023, 09/27/2023, Additional history exists Albumin/Creatinine Ratio [...] this encounter Medical Devices Implanted Type Area Green Material Value Added Assessor Device Identifier Shelf Expiration Date Model / Serial / Lot Lens Intraoc 21.0 - [id number] - [id number] Implanted:Qty: 1 on 09/08/2020 by Gabriel Poe MD at OR [facility] Right: Eye [employer]OM[employer] 11/15/2024 [id number] / [id number] / [id number] Lens Intraoc 21.0 - [id number] - [id number] Implanted:Qty: 1 on 09/24/2020 by Gabriel Poe MD at OR [facility] Left: Eye BAUSCH [employer] LOMB 09/17/2024 [id number] / [id number] / documented as of this encounter Care Teams Coffin Maker Relationship Specialty Start Date End Date Sara Aragon MD [address] [place] [address], [place] [address] PCP - General Family Medicine 11/13/17 documented as of this encounter
--- OUTSIDE RECORDS SUMMARY | 2024-12-29 13:39 | External Medical Summary | Summary of Care ---
Author Name Unknown Organization [facility] Address [address] [facility] [place] [address] Phone [phone] Care Team Providers Care Wax Coating Machine Tender Name Role Phone Sara Aragon MD Primary Care Provider [phone] Reason for Visit * Reason Onset Date Comments Home Monitoring Telephone 11/12/2024 Encounter Details Date Type Department Care Team (Late st Contact Info) Description 11/12/2024 Telephone Nephrology, [facility] [address] [facility] [place] [address] Maria Isabel Beltre MD [address] [facility] [place] [address] Home Monitoring Telephone Allergies Active Allergy Reactions [...] as of this encounter (statuses as of 11/15/2024) Medications BD INSULIN SYRINGE 25G X 1" [...] 0.1 % Nasal Solution (Astelin) Administer 1 [place] into nostril in the morning and 1 [place] before bedtime. Active Carvedilol 25 MG Oral [...] as of this encounter (statuses as of 11/15/2024) Active Problems Problem Noted Date Diagnosed Date Gastroparesis 04/02/2024 Chronic constipation 04/02/2024 Abnormal nuclear stress test 01/18/2018 HTN, goal below 130/80 01/18/2018 Dyslipidemia, goal LDL below 70 01/18/2018 documented as of this encounter (statuses as of 11/15/2024) Resolved Problems Problem Noted Date Diagnosed Date Resolved Date Type 2 diabetes mellitus wit h stage 3b chronic kidney disease, with long-term current use of insulin 01/24/2022 01/05/2023 Overview: Per CKD protocol Type 2 diabetes mellitus wit h stage 1 chronic kidney disease, with long-term current use of insulin 01/18/2018 01/27/2022 Overview: Per CKD protocol documented as of this encounter (statuses as of 11/15/2024) Immunizations Name Administration Dates Next Due COVID-19 [...] encounter Miscellaneous Notes * Telephone Encounter - Maria Isabel Beltre MD - 11/15/2024 9:37 AM EST 11/07/24 10:03 11/08/24 07:48 11/09/24 14:42 11/10/24 15:18 11/11/24 09:21 11/14/24 16:32 11/15/24 09:10 Systolic BP 104 mm/Hg [1] 115 mm/Hg [1] 125 mm/Hg [1] 103 mm/Hg [1] 148 mm/Hg (H) [1] 118 mm/Hg [1]145 mm/Hg (H) [1] Diastolic BP 48 mm/Hg [1] 47 mm/Hg [1] 54 mm/Hg [1] 44 mm/Hg [1] 64 mm/Hg [1] 54 mm/Hg [1] 44 mm/Hg[1] Pulse 54 bpm [1] 65 bpm [1] 56 bpm [1] 57 bpm [1] 60 bpm [1] 54 bpm [1] 59 bpm [1] Labile blood pressure with some out of found readings in the past week (2.) Continue same remote monitoring status as current * Telephone Encounter - Karlie Boss LPN - 11/15/2024 7:[address] Beltre, Please see prior message reading possible transfer to maintenance program. Thank you, Karlie Boss LPN * Telephone Encounter - Karlie Boss LPN - 11/12/2024 9:52 AM EST [place] [id number] Corazon Shea Patient is currently enrolled in [...] next evaluation. Option 3: Step down to “[facility] Chronic Disease Maintenance Program” Note for Option 3 (step-down to maintenance program) nurses will no longer monitor readings, these are available in EPIC synopsis flowsheets and workbench reports for review. Patients will be educated that they are responsible for contacting clinic directly with any concerns. Thank you, [facility] Monitoring Center Staff Karlie Boss LPN documented in this encounter Plan of Treatment Upcoming Encounters Date Type Department Care Team (Late st Contact Info) Description 12/02/2024 10:30 AM EDT Office Visit Cardiology, [facility] [address] [place] [address] Jaylan Dacosta PA-C [address] [place] [address] Scheduled Procedures Name Priority Associated Diagnoses Date/Ti [...] 09/14/2021, Additional history exists GFR 12/17/2024 12/18/2023, 02/10/2023, 09/27/2023, Additional history exists Albumin/Creatinine Ratio 04/12/2026 [...] this encounter Medical Devices Implanted Type Area Respiratory Supervisor Device Identifier Shelf Expiration Date Model / Serial / Lot Lens Intraoc 21.0 - [id number] - [id number] Implanted:Qty: 1 on 09/08/2020 by Gabriel Poe MD at OR [facility] Right: Eye [employer]OM[employer] 11/15/2024 [id number] / [id number] / [id number] Lens Intraoc 21.0 - [id number] - [id number] Implanted:Qty: 1 on 09/24/2020 by Gabriel Poe MD at OR [facility] Left: Eye BAUSCH [employer] LOMB 09/17/2024 [id number] / [id number] / documented as of this encounter Care Teams Wax Coating Machine Tender Relationship Specialty Start Date End Date Sara Aragon MD [address] [place] [address] 1 [place] [address] PCP - General Family Medicine 11/13/17 documented as of this encounter
--- OUTSIDE RECORDS SUMMARY | 2024-12-29 13:39 | External Medical Summary ---
Author Name Unknown Address Unknown Organization K0G:[facility] - [address] [place] [address] Laboratory Report Ordering Provider Test Date Status FABY CONTRERAS 12/02/2024 11:22:58 Final Observation Date Value Abnormality Reference (Units ) Status BUN 12/02/2024 11:22:58 43 Above high normal 6-20 (mg/dL) Final Creatinine 12/02/2024 11:22:58 1.5 Above high normal 0.5-1.0 (mg/dL) Final Glomerular filtration rate/1.73 sq M.predicted [Volume Rate/Area] in Serum, Plasma or Blood by Creatinine-based formula (CKD-EPI) 12/02/2024 11:22:58 40 Below low normal >=60 (mL/min) Final eGFR is calculated based on the CKD-EPI 2020 equation. Sodium 12/02/2024 11:22:58 140 135-146 (m mol/L) Final Potassium 12/02/2024 11:22:58 4.5 3.5-5.1 (m mol/L) Final Cl 12/02/2024 11:22:58 98 98-107 (mm ol/L) Final CO2 12/02/2024 11:22:58 27 22-32 (mmo l/L) Final Anion gap 12/02/2024 11:22:58 15 7-15 (mmol /L) Final Glucose 12/02/2024 11:22:58 134 Above high normal 70 -120 (mg/dL) Final Calcium 12/02/2024 11:22:58 10.1 8.4-10.2 ( mg/dL) Final Performing Location [facility] 0 - [address] [place] [address]
--- OUTSIDE RECORDS SUMMARY | 2024-12-29 13:39 | External Medical Summary | Summary of Care ---
Author Name Unknown Organization [facility] Address [address] [place] [facility] [place] [address] Phone [phone] Care Team Providers Care Care Advocate Name Role Phone Sara Aragon MD Primary Care Provider [phone] Reason for Visit * Reason Comments Outpatient Testing Encounter Details Date Type Department Care Team (Late st Contact Info) Description 12/02/2024 11:40 AM EDT Laboratory Laboratory, [facility] [address] [facility] [place] [id number] [facility] [address] [place] [address] Chronic diastolic congestive heart failure (HCC); Encounter for monitoring diuretic therapy; Renal dysfunction Allergies Active Allergy Reactions Criticality Noted Date [...] 25G X 1" 1 ML MISC 11/11/19 Active insulin glargine (LANTUS) 100 UNIT/ML [...] in the morning. 60 Tablet 11 11/15/19 Active Additional Information Patient not taking.Reported on 12/02/2024 NovoLOG 100 UNIT/ML Injection Solution Inject 35 Units under the skin in the morning and 35 Units at noon and 35 Units in the evening. Inject with meals. 11/30/19 24 Active HYDROcodone-Acetam inophen 10-325 MG Oral Tablet Take 0.5 Tablets by mouth every 8 hours as needed. 11/30/19 Active Ezetimibe 10 MG Oral Tablet (Zetia)Indications [...] 0.1 % Nasal Solution (Astelin) Administer 1 [place] into nostril in the morning and 1 [place] before bedtime. Active Carvedilol 25 MG Oral [...] on file documented as of this encounter Plan of Treatment Pending Results Name Type Priority Associated Diagnoses Date /Time MAGNESIUM Lab Routine Chronic diastolic congestive heart failure (HCC) Encounter for monitoring diuretic therapy 12/02/2024 11:22 AM EDT Scheduled Procedures Name Priority Associated Diagnoses Date/Ti [...] this encounter Medical Devices Implanted Type Area Massage Operator Device Identifier Shelf Expiration Date Model / Serial / Lot Lens Intraoc 21.0 - [id number] - [id number] Implanted:Qty: 1 on 09/08/2020 by Gabriel oPe MD at OR [facility] Right: Eye [employer]CH [employer] LOMB 11/15/2024 [id number] / [id number] / [id number] Lens Intraoc 21.0 - [id number] - [id number] Implanted:Qty: 1 on 09/24/2020 by Gabriel Poe MD at OR [facility] Left: Eye BAUSCH [employer] LOMB 09/17/2024 [id number] / [id number] / documented as of this encounter Procedures Procedure Name Priority Date/Time Associated Diagnosis Comments BASIC METABOLIC PANEL Routine 12/02/2024 11:22 AM EDT Chronic diastolic congestive heart failure (HCC) Renal dysfunction Encounter for monitoring diuretic therapy documented in this encounter Results * (ABNORMAL) [...] BLOOD ORDERABLES Final Result Performing Organization Address City/State/[facility] Co de Phone Number [phone] [place] [address] documented in this encounter Visit Diagnoses Diagnosis Chronic diastolic congestive heart failure (HCC) Chronic diastolic heart failure Encounter for monitoring diuretic therapy Encounter for therapeutic drug monitoring Renal dysfunction Unspecified disorder of kidney and ureter documented in this encounter Care Teams Care Advocate Relationship Specialty Start Date End Date Sara Aragon MD [address] [facility] [address] [place] [address] PCP - General Family Medicine 11/13/17 documented as of this encounter
--- OUTSIDE RECORDS SUMMARY | 2024-12-29 13:39 | External Medical Summary ---
Author Name Unknown Address Unknown Organization K01:[facility] - [address] [place] [address] Laboratory Report Ordering Provider Test Date Status PERNELL CONTRERASO 12/02/2024 11:22:58 Final Observation Date Value Abnormality Reference (Units ) Status Magnesium 12/02/2024 11:22:58 2.3 1.5-2.6 (m g/dL) Final Performing Location [facility] - [address] [place] [address]
--- OUTSIDE RECORDS SUMMARY | 2024-12-29 13:39 | External Medical Summary | Summary of Care ---
Author Name Unknown Organization [facility] Address [address] [facility] [place] [address] Phone [phone] Care Team Providers Care Oracle Architect Name Role Phone Sara Aragon MD Primary Care Provider [phone] Reason for Visit * Reason Onset Date Comments Home Monitoring Telephone 10/29/2024 Encounter Details Date Type Department Care Team (Late st Contact Info) Description 10/29/2024 Telephone Nephrology, [facility] [address] [facility] [place] [address] Maria Isabel Beltre MD [address] [facility] [place] [address] Home Monitoring Telephone Allergies Active Allergy Reactions [...] as of this encounter (statuses as of 10/31/2024) Medications BD INSULIN SYRINGE 25G X 1" [...] 0.1 % Nasal Solution (Astelin) Administer 1 Wallace into nostril in the morning and 1 Wallace before bedtime. Active Carvedilol 25 MG Oral [...] as of this encounter (statuses as of 10/31/2024) Active Problems Problem Noted Date Diagnosed Date Gastroparesis 04/02/2024 Chronic constipation 04/02/2024 Abnormal nuclear stress test 01/18/2018 HTN, goal below 130/80 01/18/2018 Dyslipidemia, goal LDL below 70 01/18/2018 documented as of this encounter (statuses as of 10/31/2024) Resolved Problems Problem Noted Date Diagnosed Date Resolved Date Type 2 diabetes mellitus wit h stage 3b chronic kidney disease, with long-term current use of insulin 01/24/2022 01/05/2023 Overview: Per CKD protocol Type 2 diabetes mellitus wit h stage 1 chronic kidney disease, with long-term current use of insulin 01/18/2018 01/27/2022 Overview: Per CKD protocol documented as of this encounter (statuses as of 10/31/2024) Immunizations Name Administration Dates Next Due COVID-19 [...] - 10/29/2024 1:02 PM EST Corazon Shea [id number] Corazon Shea Patient is currently enrolled in [...] next evaluation. Option 3: Step down to “[facility] Chronic Disease Maintenance Program” Note for Option 3 (step-down to maintenance program) nurses will no longer monitor readings, these are available in EPIC synopsis flowsheets and workbench reports for review. Patients will be educated that they are responsible for contacting clinic directly with any concerns. Thank you, [facility] Monitoring Center Staff Karlie Boss LPN documented in this encounter Plan of Treatment Upcoming Encounters Date Type Department Care Team (Late st Contact Info) Description 12/02/2024 10:30 AM EDT Office Visit Cardiology, [facility] [address] [place] [address] Jaylan Dacosta PA-C [address] [place] [address] Scheduled Procedures Name Priority Associated Diagnoses Date/Ti [...] 09/14/2021, Additional history exists GFR 12/17/2024 12/18/2023, 020 10/2023, 09/27/2023, Additional history exists Albumin/Creatinine Ratio [...] this encounter Medical Devices Implanted Type Area Installation & Maintenance Executive Device Identifier Shelf Expiration Date Model / Serial / Lot Lens Intraoc 21.0 - [id number] - [id number] Implanted:Qty: 1 on 09/08/2020 by Gabriel Poe MD at [facility] Right: Eye [employer] 11/15/2024 [id number] / [id number] / [id number] Lens Intraoc 21.0 - [id number] - [id number] Implanted:Qty: 1 on 09/24/2020 by Gabriel Poe MD at OR [facility] Left: Eye [employer]OM[employer] 09/17/2024 [id number] / [id number] / documented as of this encounter Care Teams Oracle Architect Relationship Specialty Start Date End Date Sara Aragon MD [address] [place] [address] [address] [place] [address] PCP - General Family Medicine 11/13/17 documented as of this encounter
--- OUTSIDE RECORDS SUMMARY | 2024-12-29 13:39 | External Medical Summary | Summary of Care ---
Author Name Unknown Organization [facility] Address [address] [facility] [place] [address] Phone [phone] Care Team Providers Care Senior Industrial Engineer Name Role Phone Sara Aragon MD Primary Care Provider [phone] Reason for Visit * Reason Onset Date Comments Home Monitoring Telephone 10/29/2024 Encounter Details Date Type Department Care Team (Late st Contact Info) Description 10/29/2024 Telephone Nephrology, [facility] [address] [facility] [place] [address] Maria Isabel Beltre MD [address] [facility] [place] [address] Home Monitoring Telephone Allergies Active Allergy Reactions [...] as of this encounter (statuses as of 11/01/2024) Medications BD INSULIN SYRINGE 25G X 1" [...] 0.1 % Nasal Solution (Astelin) Administer 1 [place] into nostril in the morning and 1 [place] before bedtime. Active Carvedilol 25 MG Oral [...] as of this encounter (statuses as of 11/01/2024) Active Problems Problem Noted Date Diagnosed Date Gastroparesis 04/02/2024 Chronic constipation 04/02/2024 Abnormal nuclear stress test 01/18/2018 HTN, goal below 130/80 01/18/2018 Dyslipidemia, goal LDL below 70 01/18/2018 documented as of this encounter (statuses as of 11/01/2024) Resolved Problems Problem Noted Date Diagnosed Date Resolved Date Type 2 diabetes mellitus wit h stage 3b chronic kidney disease, with long-term current use of insulin 01/24/2022 01/05/2023 Overview: Per CKD protocol Type 2 diabetes mellitus wit h stage 1 chronic kidney disease, with long-term current use of insulin 01/18/2018 01/27/2022 Overview: Per CKD protocol documented as of this encounter (statuses as of 11/01/2024) Immunizations Name Administration Dates Next Due COVID-19 [...] - 10/29/2024 1:02 PM EST Corazon Shea [id number] Corazon Shea Patient is currently enrolled in [...] next evaluation. Option 3: Step down to [facility] Chronic Disease Maintenance Program” Note for Option 3 (step-down to maintenance program) nurses will no longer monitor readings, these are available in EPIC synopsis flowsheets and workbench reports for review. Patients will be educated that they are responsible for contacting clinic directly with any concerns. Thank you, [facility] Monitoring Center Staff Karlie Boss LPN documented in this encounter Plan of Treatment Upcoming Encounters Date Type Department Care Team (Late st Contact Info) Description 12/02/2024 10:30 AM EDT Office Visit Cardiology, [facility] [address] [place] [address] Jaylan Dacosta PA-C [address] [place] [phone] Scheduled Procedures Name Priority Associated Diagnoses Date/Ti [...] this encounter Medical Devices Implanted Type Area Benefits Coordinator Device Identifier Shelf Expiration Date Model / Serial / Lot Lens Intraoc 21.0 - [id number] - [id number] Implanted:Qty: 1 on 09/08/2020 by Gabriel Poe MD at OR [facility] Right: Eye [employer] 11/15/2024 [id number] / [id number] / [id number] Lens Intraoc 21.0 - [id number] - [id number] Implanted:Qty: 1 on 09/24/2020 by Gabriel Poe MD at OR [facility] Left: Eye [employer]OM[employer] 09/17/2024 [id number] / [id number] / documented as of this encounter Care Teams Senior Industrial Engineer Relationship Specialty Start Date End Date Sara Aragon MD [address] [facility] [address] [place] [address] PCP - General Family Medicine 11/13/17 documented as of this encounter
[2024-12-29 14:02] LABS: Basophils # (auto) 0.03 K/uL (0.00-0.20); Basophils % (auto) 0.4 %; Eosinophils # (auto) 0.02 K/uL (0.00-0.50); Eosinophils % (auto) 0.3 %; Hemoglobin 11.6 g/dl (12.0-16.0); Immature Granulocytes # (auto) 0.02 K/uL (0.01-0.20); Immature Granulocytes % (auto) 0.3 %; Lymphocytes # (auto) 1.64 K/uL (1.20-3.40); Lymphocytes % (auto) 23.4 %; Mean Corpuscular Hemoglobin 27.4 pg (25.0-34.0); Mean Corpuscular Hgb Conc 32.2 g/dL (32.0-36.0); Mean Corpuscular Volume 84.9 fL (80.0-100.0); Mean Platelet Volume 8.4 fL (9.4-12.4); Monocytes # (auto) 1.22 K/uL (0.11-0.59); Monocytes % (auto) 17.4 %; Neutrophils # (auto) 4.09 K/uL (1.40-6.50); Neutrophils % (auto) 58.2 %; Platelet Count 305 K/uL (130-400); RDW Coefficient of Variation 15.2 % (11.5-14.5); RDW Standard Deviation 46.5 fL (36.4-46.3); Red Blood Count 4.24 M/uL (4.20-5.40); White Blood Count 7.02 K/ul (4.8-10.8)
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
[2024-12-29 14:20] LABS: Albumin Globulin Ratio 1.1 (0.9-2); BUN Creatinine Ratio 20.2 (10-20); Bilirubin,Total 0.7 mg/dl (0.2-1.0); Calcium 9.5 mg/dl (8.6-10.3); Creatinine Clr Calc Pharmacy 41.8 ml/min; Globulin 3.6 gm/dl (2.5-4.0); Potassium 4.3 mmol/L (3.5-5.1); Total Protein 7.6 gm/dl (6.0-8.3)
[2024-12-29 14:26] LABS: Troponin I High Sensitivity 32.2 pg/ml (0-14)
[2024-12-29] MEDS: SODIUM CHLORIDE 0.9% 500 ML IV ONE (15:20)
[2024-12-29 15:21] LABS: Magnesium 2.2 mg/dl (1.7-2.4)
--- NOTE | 2024-12-29 15:54 | CT Scan Report ---
EXAMINATION: Abdomen and pelvis CT without CLINICAL HISTORY: Diarrhea, left lower quadrant pain PRIORS: 03/26/2019 TECHNIQUE: Contiguous axial images were obtained through the abdomen and pelvis without the use of intravenous contrast. Sagittal and coronal reformations are supplied. FINDINGS: Lung bases unremarkable. Evaluation of solid organs is limited without the use of intravenous contrast. A right adrenal mass is present, predominantly fat attenuation measuring 5.1 cm, increased in size when compared to 2019 which measured 3.7 cm. The liver, pancreas, stomach, adrenals, aorta and IVC are morphologically unremarkable. Spleen is enlarged measuring 14 cm, which compares to 12 cm on the prior examination. The kidneys are symmetric. Advanced arterial atherosclerotic disease present. No free fluid in the abdomen or adenopathy. No dilated loops of bowel. Liquid material present in the large and small bowel. No bowel distention. Uterus is present. No adnexal mass. Rectus abdominis muscle diastases and/or umbilical hernia present, unchanged. Fat present in the hernia with no dilated loops of bowel, image 248, series 2. No acute osseous abnormality. IMPRESSION: 1. No CT evidence of an acute abdominal or pelvic abnormality. 2. Right adrenal fat-containing mass increased in size in the interval. 3. Splenomegaly, appearing in the interval. ACT 112: Positive. There are findings on this examination that require communication between the performing entity and the patient following Patient Test Result Information Act ([place] ACT 112) guidelines. . Electronically signed by Conchita Guzman 12-29-2024 3:54 PM
[2024-12-29 15:57] LABS: Adenovirus PCR Not Detected (NotDetected); Bordetella parapertussis PCR Not Detected (NotDetected); Bordetella pertussis PCR Not Detected (NotDetected); Chlamydia pneumoniae PCR Not Detected (NotDetected); Coronavirus 229E PCR Not Detected (NotDetected); Coronavirus CoV-2 (COVID19)PCR Not Detected (NotDetected); Coronavirus HKU1 PCR Not Detected (NotDetected); Coronavirus NL63 PCR Not Detected (NotDetected); Coronavirus OC43PCR Not Detected (NotDetected); Human Metapneumovirus PCR Not Detected (NotDetected); Influenza A (H1 2009) PCR DETECTED (NotDetected); Influenza B PCR Not Detected (NotDetected); Mycoplasma pneumoniae PCR Not Detected (NotDetected); Parainfluenza Virus 1 PCR Not Detected (NotDetected); Parainfluenza Virus 2 PCR Not Detected (NotDetected); Parainfluenza Virus 3 PCR Not Detected (NotDetected); Parainfluenza Virus 4 PCR Not Detected (NotDetected); Respiratory Syncytial VirusPCR Not Detected (NotDetected); Rhinovirus/Enterovirus PCR Not Detected (NotDetected)
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
--- NOTE | 2024-12-29 16:36 | XRay Report ---
Chest radiograph, one view History: Shortness of breath. Comparison: 27 December 2021. Findings: Cardiomediastinal silhouette is within normal limits. Pulmonary vasculature is within normal limits. Lungs are clear. Pleural spaces are within normal limits. Impression: No findings to indicate source for patient's symptoms. Electronically signed by Dami Apple 12-29-2024 4:36 PM
--- NOTE | 2024-12-29 17:14 | Billing Data ---
Date of Service December 29, 2024 Coding Level of Care Code 17402 SUB INP/OBS CARE MIN
[2024-12-29 17:15] LABS: Appearance Urine Cloudy (Clear); Bacteria Urine Automated None Seen (None Seen); Bilirubin Urine Negative (Negative); Blood Urine Negative (Negative); Cast Urine Automated >20 /lpf (0-2); Color Urine Yellow; Glucose Urine UA Negative (Negative); Hyaline Casts Urine Present /lpf (None Presnt); Ketones Urine Trace (Negative); Leukocyte Esterase Urine 2+ (Negative); Nitrite Urine Negative (Negative); Protein Urine 2+ (Negative); RBC Urine Automated 0-2 /hpf (0-2); Specific Gravity Urine 1.018 (1.000-1.030); Urobilinogen Urine Negative (Negative); WBC Urine Automated 21-50 /hpf (0-5)
--- NOTE | 2024-12-29 17:15 | Billing Data ---
Date of Service December 29, 2024 Coding Level of Care Code 23085 INT INP/OBS CARE MIN Comment disregard 233;
--- NOTE | 2024-12-29 18:54 | Ultrasound Report ---
DVT ULTRASOUND RIGHT LOWER EXTREMITY INDICATION: Pain TECHNIQUE: Grayscale and color Doppler evaluation of the RIGHT femoral-popliteal venous system was performed. A duplex Doppler study was performed, consisting of integrated two-dimensional (2D) real-time imaging: Color flow Doppler and Doppler spectral analysis. COMPARISON: None FINDINGS: RIGHT common femoral, femoral and popliteal veins: Normal compressibility, color flow, respiratory variation. No intraluminal echogenic material. IMPRESSION: No evidence of deep venous thrombus in the right femoral-popliteal venous system. Electronically signed by Ross Martel 12-29-2024 6:53 PM
[2024-12-29] MEDS ORDERED: DEXTROSE 50% 50 ML SYRINGE IV PRN (19:20)
[2024-12-29] MEDS ORDERED: CARBOHYDRATES FOR HYPOGLYCEMIA PO PRN (19:20)
[2024-12-29] MEDS ORDERED: HYDROCODONE/ACETAMOPHEN 5/325MG TAB PO PRN (19:20)
[2024-12-29] MEDS ORDERED: GLUCOSE 40% GEL 15 GM TUBE PO PRN (19:20)
[2024-12-29] MEDS ORDERED: GLUCAGON FOR INJ 1 MG VIAL SQ PRN (19:20)
[2024-12-29] MEDS ORDERED: GLUCOSE 10 TAB/TUBE PO PRN (19:20)
[2024-12-29] MEDS: INSULIN ASPART PER UNIT CHARGE SC SCH (20:18)
[2024-12-29] MEDS: LANTUS PER UNIT CHARGE SQ SCH (20:18)
[2024-12-29] MEDS: ARTIFICIAL TEARS OP SCH (21:09)
[2024-12-29] MEDS: ROSUVASTATIN CALCIUM 20 MG TAB PO SCH (22:54)
[2024-12-29] MEDS: carvediloL 25 MG TAB PO SCH (22:54)
[2024-12-29] MEDS: ONDANSETRON INJ 2 MG/ML 2 ML VIAL IV PRN (23:47)
[2024-12-30] MEDS: HEPARIN SOD 5,000 UNIT/0.5 ML VIAL SQ SCH (07:38)
--- NOTE | 2024-12-30 07:59 | Hospitalist Progress Note ---
Date of Service December 30, 2024 Assessment & Plan (1) Influenza A: (2) Non-ST elevation (NSTEMI) myocardial infarction: (3) Generalized weakness: (4) Leg edema, right: (5) Acute kidney injury: (6) Diarrhea: (7) Pressure ulcer of toe of right foot, stage 3: Plan 59 year old female presenting with URI symptoms and diarrhea in the setting of influenza. #Influenza, Diarrhea: - +Influenza - symptoms x 5 days prior to admission; Tamiflu deferred - stable on room air - C. diff/stool PCR negative - diarrhea likely secondary to acute influenza infection - Volume contracted in the setting of poor PO intake + diarrhea - IV LR @125ml/h x1 bag - Encourage PO intake - Likely cause for weakness - PT/OT evaluations complete, anticipate discharge to home when medically appropriate - droplet precautions #KHANG - creatine 1.93 on admission (baseline 1.3-1.6) - remains elevated, likely prerenal in the setting of poor PO intake and diarrhea - hold diuretics - fluids as above - monitor fluid balance given h/o HFpEF - repeat labs qAM #T2DM with diabetic ulcer, right foot: - poorly controlled; last hemoglobin a1c= 10.6 10/12; follows with endocrinology as an outpatient - home regimen with SSI with meals and Lantus 80 units BID - Notes concern for hypoglycemia with poor PO intake -> further decrease Lantus to 20 units BID w/ SSI, will likely need to be uptitrated based on sugars - Follows with wound center - Wound care nursing consulted #LE Edema Right>Left - Reports previous Doppler US work up that was unremarkable - RLE venous Doppler negative #Right Adrenal Fat Containing Mass - noted again on CT, increased size-> outpatient f/u HLD: continue statin VTE Prophylaxis: Heparin q12 Admission and Anticipated Discharge Date Admission Date: December 29, 2024 Supervising Physician Co-Signing Physician Notes Attending attestation Pt seen and examined in concert with Dr. Francisco. In agreement with the documented findings as noted in the resident documentation with any exceptions or additions as noted here. Ongoing diarrheal episodes in the presence of recent immodium trial with single episode of urgency incontinence reported prior to evaluation. Mild abdominal cramping preceding bowel movements. Ongoing ambulatory dysfunction benefiting from rolling walker but limiting reaching bathroom. On examination, S1/S2 nl RRR no MCG. CTAB. Abd NT/ND BS+ve Influenza with diarrhea - extensive conversation re: intervention/treatment - 1L LR as noted. Bedside commode for urgency. PT/OT - recs home and outpatient tx KHANG - continue to trend creatinine daily, IVF as above HFpEF - significant weight decrease with home fluid limitation, likely contributing to KHANG. Gentle hydration and monitor closely. DMII - continue SSI and glargine insulin with close monitoring as likely significant dietary difference w/ inpatient care R adrenal fat containing mass - recommend follow up with PCP Else see resident documentation as noted. Subjective Patient sitting in bedside chair on evaluation this morning, notes brief pause in diarrhea with resumption of loose stools this morning. Denies shortness of breath, fever/chills. +Nausea, denies vomiting. Poor PO intake. Notes that she refused IV fluids d/t concern for fluid overload - at baseline, patient adheres to 50oz fluid restriction. Denies orthopnea. Also wants Lantus further decreased - no overt hypoglycemia but notes hypoglycemic sx in the low 100s, as she is used to running closer to 200 at baseline. Review of Systems Review of Systems: as per HPI Physical Exam Physical Exam: Constitutional: no acute distress HEENT: NCAT, no conjunctival injection CV: extremities well-perfused Resp: no increased work of breathing, lung sounds diminished throughout, no wheezes, rales, rhonchi GI: nondistended MSK: no gross deformities Skin: warm, dry, no rash appreciated Neuro: alert, oriented, no focal neurologic deficit appreciated Results & Data Results & Data Vital Signs (Past 12 Hours) Vital Signs Temp Pulse Resp BP Pulse Ox O2 Del Method 12/29/24 21:05 Room Air 12/29/24 21:05 37 C 64 18 107/52 L 96 Room Air 12/29/24 20:03 64 20 125/59 L 95 Room Air Resident Activity Tracking Resident Involvement: Resident Care Provided Care Provided: Adult Hospital Medicine
[2024-12-30 08:21] LABS: Basophils # (auto) 0.03 K/uL (0.00-0.20); Basophils % (auto) 0.5 %; Eosinophils # (auto) 0.08 K/uL (0.00-0.50); Eosinophils % (auto) 1.4 %; Hematocrit (blood only) 37.1 % (37.0-47.0); Hemoglobin 11.9 g/dl (12.0-16.0); Immature Granulocytes # (auto) 0.02 K/uL (0.01-0.20); Immature Granulocytes % (auto) 0.4 %; Lymphocytes # (auto) 1.62 K/uL (1.20-3.40); Lymphocytes % (auto) 28.9 %; Mean Corpuscular Hemoglobin 27.4 pg (25.0-34.0); Mean Corpuscular Hgb Conc 32.1 g/dL (32.0-36.0); Mean Corpuscular Volume 85.3 fL (80.0-100.0); Mean Platelet Volume 8.8 fL (9.4-12.4); Monocytes # (auto) 0.79 K/uL (0.11-0.59); Monocytes % (auto) 14.1 %; Neutrophils # (auto) 3.07 K/uL (1.40-6.50); Neutrophils % (auto) 54.7 %; Platelet Count 329 K/uL (130-400); RDW Coefficient of Variation 15.1 % (11.5-14.5); RDW Standard Deviation 47.5 fL (36.4-46.3); Red Blood Count 4.35 M/uL (4.20-5.40); White Blood Count 5.61 K/ul (4.8-10.8)
[2024-12-30 08:32] LABS: Albumin Globulin Ratio 1.2 (0.9-2); Albumin Level 4.1 gm/dl (3.4-5.0); BUN Creatinine Ratio 24.5 (10-20); Bilirubin,Total 0.6 mg/dl (0.2-1.0); Calcium 9.3 mg/dl (8.6-10.3); Creatinine Clr Calc Pharmacy 41.6 ml/min; Globulin 3.4 gm/dl (2.5-4.0); Potassium 3.9 mmol/L (3.5-5.1); Total Protein 7.5 gm/dl (6.0-8.3)
[2024-12-30] MEDS: ASPIRIN 81 MG ECTAB PO SCH (08:56)
[2024-12-30] MEDS: ISOSORBIDE MONO EXTENDED REL 30 MG TABCR PO SCH (08:56)
[2024-12-30] MEDS: CETIRIZINE HCL 10 MG TABLET PO SCH (09:05)
[2024-12-30] MEDS: LOPERAMIDE HCL 2 MG CAP PO STA ×2 (09:06→12:46)
[2024-12-30] MEDS: LANTUS PER UNIT CHARGE SQ SCH (10:25)
--- NOTE | 2024-12-30 11:05 | Electrocardiogram Report ---
Test Reason : Blood Pressure : */* mmHG Vent. Rate : 60 BPM Atrial Rate : 60 BPM P-R Int : 168 ms QRS Dur : 90 ms QT Int : 448 ms P-R-T Axes : 89 -24 85 degrees QTcB Int : 448 ms Normal sinus rhythm Low voltage QRS possible Inferior infarct , age undetermined Poor R wave progression, consider anterior NH vs. lead placement vs. LVH Abnormal ECG When compared with ECG of 27-Dec-2021 00:59, Nonspecific T wave abnormality no longer evident in Inferior leads Confirmed by Raheem Dejesus ([id number]) on 12/30/2024 11:05:14 AM Referred By: REFERRED SELF Confirmed By: Raheem Dejesus
[2024-12-30 11:31] LABS: Adenovirus F 40/41 PCR Not Detected (NotDetected); Astrovirus PCR Not Detected (NotDetected); Campylobacter PCR Not Detected (NotDetected); Cryptosporidium PCR Not Detected (NotDetected); Cyclospora cayetanensis PCR Not Detected (NotDetected); Entamoeba histolytica PCR Not Detected (NotDetected); Enteroaggregative E.coli(EAEC) Not Detected (NotDetected); Enteropathogenic E.coli (EPEC) Not Detected (NotDetected); Enterotoxigenic E.coli (ETEC) Not Detected (NotDetected); Giardia lamblia PCR Not Detected (NotDetected); Norovirus GI/GII PCR Not Detected (NotDetected); Plesiomonas shigelloides PCR Not Detected (NotDetected); Rotavirus A PCR Not Detected (NotDetected); Salmonella PCR Not Detected (NotDetected); Sapovirus PCR Not Detected (NotDetected); Shiga-like Toxin E.coli (STEC) Not Detected (NotDetected); Shigella/Enteroinvasive E.coli Not Detected (NotDetected); Vibrio cholerae PCR Not Detected (NotDetected); Vibrio species PCR Not Detected (NotDetected); Yersinia enterocolitica PCR Not Detected (NotDetected)
[2024-12-30] MEDS: LACTATED RINGER'S 1,000 ML IV SCH (14:15)
[2024-12-31 07:47] LABS: Alanine Aminotransferase 45 U/L (7-52); Albumin Globulin Ratio 1.2 (0.9-2); Albumin Level 3.8 gm/dl (3.4-5.0); Alkaline Phosphatase 140 U/L (34-104); Anion Gap 7 (3-11); BUN Creatinine Ratio 28.7 (10-20); Bilirubin,Total 0.5 mg/dl (0.2-1.0); Blood Urea Nitrogen 54 mg/dl (6-23); Carbon Dioxide 27 mmol/L (21-32); Chloride 101 mmol/L (98-107); Creatinine Clr Calc Pharmacy 42.5 ml/min; Globulin 3.1 gm/dl (2.5-4.0); Glucose 145 mg/dl (70-99(Fasting)); Sodium 135 mmol/L (136-145); Total Protein 6.9 gm/dl (6.0-8.3)
--- NOTE | 2024-12-31 08:08 | Hospitalist Progress Note ---
Date of Service December 31, 2024 Assessment & Plan (1) Influenza A: (2) Non-ST elevation (NSTEMI) myocardial infarction: (3) Generalized weakness: (4) Leg edema, right: (5) Acute kidney injury: (6) Diarrhea: (7) Pressure ulcer of toe of right foot, stage 3: Plan 59 year old female presenting with URI symptoms and diarrhea in the setting of influenza. #Influenza, Diarrhea: - +Influenza - symptoms x 5 days prior to admission; Tamiflu deferred - stable on room air - C. diff/stool PCR negative - diarrhea likely secondary to acute influenza infection, fortunately slowing down - Volume contracted in the setting of poor PO intake + diarrhea - IV LR @75ml/h x1 bag - Encourage PO intake - Likely cause for weakness - PT/OT evaluations completed 12/30, anticipate discharge to home, likely tomorrow AM - droplet precautions #KHANG - creatine 1.93 on admission (baseline 1.3-1.6) - remains elevated though slowly improving, likely prerenal in the setting of poor PO intake and diarrhea - hold diuretics - fluids as above - monitor fluid balance given h/o HFpEF - repeat labs qAM #T2DM with diabetic ulcer, right foot: - poorly controlled; last hemoglobin a1c= 10.6 10/12; follows with endocrinology as an outpatient - home regimen with SSI with meals and Lantus 80 units BID - Notes concern for hypoglycemia with poor PO intake -> Continue reduced Lantus 20 units BID w/ SSI, will likely need to be uptitrated based on sugars - Follows with wound center - Wound care nursing consulted #LE Edema Right>Left - Stable - Reports previous Doppler US work up that was unremarkable - RLE venous Doppler negative #Right Adrenal Fat Containing Mass - noted again on CT, increased size-> outpatient f/u HLD: continue statin VTE Prophylaxis: Heparin q12 Admission and Anticipated Discharge Date Admission Date: December 29, 2024 Supervising Physician Co-Signing Physician Notes Attending attestation Pt seen and examined in concert with Dr. Francisco. In agreement with the documented findings as noted in the resident documentation with any exceptions or additions as noted here. Ongoing diarrheal episodes, though improved from yesterday. Ongoing ambulatory dysfunction benefiting from rolling walker but limiting reaching bathroom. On examination, S1/S2 nl RRR no MCG. CTAB. Abd NT/ND BS+ve Influenza with diarrhea - extensive conversation re: intervention/treatment - LR as noted. Bedside commode for urgency. PT/OT - recs home and outpatient tx KHANG - continue to trend creatinine daily, IVF as above HFpEF - significant weight decrease with home fluid limitation, likely contributing to KHANG. Gentle hydration and monitor closely. DMII - continue SSI and glargine insulin with close monitoring as likely significant dietary difference w/ inpatient care R adrenal fat containing mass - recommend follow up with PCP Else see resident documentation as noted. Subjective Continues to have loose stools. Denies shortness of breath, fever/chills. +Nausea, denies vomiting. Poor PO intake. Denies orthopnea. Review of Systems Review of Systems: as per HPI Physical Exam Physical Exam: Constitutional: no acute distress HEENT: NCAT, no conjunctival injection CV: extremities well-perfused Resp: no increased work of breathing, lung sounds diminished throughout, no wheezes, rales, rhonchi GI: nondistended MSK: no gross deformities Skin: warm, dry, no rash appreciated Neuro: alert, oriented, no focal neurologic deficit appreciated Results & Data Results & Data Vital Signs (Past 12 Hours) Vital Signs Temp Pulse Resp BP Pulse Ox O2 Del Method 12/31/24 07:41 36.9 C 55 L 16 93/48 L 97 Room Air 12/30/24 22:33 56 L 16 100/49 L 96 Room Air 12/30/24 21:05 Room Air 12/30/24 20:50 61 12/30/24 20:47 37.5 C 57 L 16 134/80 97 Room Air Resident Activity Tracking Resident Involvement: Resident Care Provided Care Provided: Adult Hospital Medicine
[2024-12-31 08:58] LABS: Potassium 3.8 mmol/L (3.5-5.1)
[2024-12-31] MEDS: LACTATED RINGER'S 1,000 ML IV SCH (11:33)
[2024-12-31] MEDS: FLUTICASONE PROPIONATE NA SPR 16 GM BTL SCH (13:05)
[2024-12-31 16:42] LABS: Calcium 9.1 mg/dl (8.6-10.3); Potassium 3.9 mmol/L (3.5-5.1)
[2024-12-31 16:48] LABS: BUN Creatinine Ratio 30.4 (10-20); Creatinine Clr Calc Pharmacy 44.1 ml/min
[2024-12-31] MEDS: ASPIRIN 81 MG CHEW PO ONE (18:50)
[2024-12-31] MEDS: LANTUS PER UNIT CHARGE SQ SCH (22:17)
[2025-01-01 06:12] LABS: Calcium 9.1 mg/dl (8.6-10.3)
[2025-01-01 06:17] LABS: BUN Creatinine Ratio 30.2 (10-20); Creatinine Clr Calc Pharmacy 47.3 ml/min
--- NOTE | 2025-01-01 08:21 | Hospitalist Progress Note ---
Date of Service January 01, 2025 Assessment & Plan (1) Influenza A: (2) Non-ST elevation (NSTEMI) myocardial infarction: (3) Generalized weakness: (4) Leg edema, right: (5) Acute kidney injury: (6) Diarrhea: (7) Pressure ulcer of toe of right foot, stage 3: Plan 59 year old female presenting with URI symptoms and diarrhea in the setting of influenza. #Influenza, Diarrhea: - +Influenza - symptoms x 5 days prior to admission; Tamiflu deferred - stable on room air - C. diff/stool PCR negative - diarrhea likely secondary to acute influenza infection, fortunately slowing down - Volume contracted in the setting of poor PO intake + diarrhea - IV LR @75ml/h x1 bag - Encourage PO intake - Likely cause for weakness - PT/OT evaluations completed 12/30, anticipate discharge to home, likely tomorrow AM - droplet precautions #KHANG - creatine 1.93 on admission (baseline 1.3-1.6) - remains elevated though slowly improving, likely prerenal in the setting of poor PO intake and diarrhea - hold diuretics - fluids as above - monitor fluid balance given h/o HFpEF - repeat labs qAM #T2DM with diabetic ulcer, right foot: - poorly controlled; last hemoglobin a1c= 10.6 10/12; follows with endocrinology as an outpatient - home regimen with SSI with meals and Lantus 80 units BID - Notes concern for hypoglycemia with poor PO intake -> Continue reduced Lantus 20 units BID w/ SSI, will likely need to be uptitrated based on sugars - Follows with wound center - Wound care nursing consulted #LE Edema Right>Left - Stable - Reports previous Doppler US work up that was unremarkable - RLE venous Doppler negative #Right Adrenal Fat Containing Mass - noted again on CT, increased size-> outpatient f/u HLD: continue statin VTE Prophylaxis: Heparin q12 Admission and Anticipated Discharge Date Admission Date: December 29, 2024 Subjective Continues to have loose stools. Denies shortness of breath, fever/chills. +Nausea, denies vomiting. Poor PO intake. Denies orthopnea. Review of Systems Review of Systems: as per HPI Physical Exam Physical Exam: Constitutional: no acute distress HEENT: NCAT, no conjunctival injection CV: extremities well-perfused Resp: no increased work of breathing, lung sounds diminished throughout, no wheezes, rales, rhonchi GI: nondistended MSK: no gross deformities Skin: warm, dry, no rash appreciated Neuro: alert, oriented, no focal neurologic deficit appreciated Results & Data Results & Data Vital Signs (Past 12 Hours) Vital Signs Pulse O2 Del Method 12/31/24 21:30 Room Air 12/31/24 21:18 62
[2025-01-01 09:29] VITALS: BP 111/52; PULSE 59; RESP 14; TEMP 99; O2SAT 99
--- NOTE | 2025-01-01 11:07 | Discharge Summary ---
Date of Service January 01, 2025 Admission HPI Per Admitting Provider 59 year old female with a past medical history of DM2, HTN, HLD, HFpEF presenting with cough, congestion, diarrhea, weakness. x5 days. Worse today with increased diarrhea. Fall getting off commode, unable to get up on her own which prompted her to call EMS. Lives with 90 year old father. Denies chest/pleuritic pain. Notes pain with coughing. Multiple episodes of diarrhea this morning, very watery, denies blood in stool. Denies abdominal pain, notes some intermittent cramping. ED course significant for: CBC unremarkable, Creatinine= 1.93 (baseline 1.3- 1.6), Troponin 32.2-> 31.1. CT A&P Right adrenal fat-containing mass increased in size in the interval, Splenomegaly. CXR without acute pathology. Admission Exam Per Admitting Provider Constitutional: well-appearing, no acute distress HEENT: NCAT, no conjunctival injection CV: regular rhythm, no murmur appreciated, extremities well-perfused, + LE right w/ calf tenderness, trace left Resp: CTABL, no wheezes/rales/rhonchi appreciated, no increased work of breathing GI: soft, nondistended, nontender MSK: no gross deformities appreciated Skin: warm, dry, no rash appreciated Neuro: alert, oriented, no focal neurologic deficit appreciated Principal Diagnosis Influenza, KHANG Discharge Exam Constitutional: no acute distress HEENT: NCAT, no conjunctival injection CV: extremities well-perfused Resp: no increased work of breathing, lung sounds diminished throughout, no wh eezes, rales, rhonchi GI: nondistended MSK: no gross deformities Skin: warm, dry, no rash appreciated Neuro: alert, oriented, no focal neurologic deficit appreciated Discharge Data Allergies Allergy/AdvReac Type Severity Reaction Status Date / Time adhesive Allergy Severe blisters Verified 12/25/24 08:22 ceftazidime [From Fortaz] Allergy Severe renal Verified 12/25/24 08:22 failure dalbavancin Allergy Severe RASH ALL Verified 12/25/24 08:22 OVER FACE AND CHEST vancomycin Allergy Severe renal Verified 12/25/24 08:22 failure sitagliptin [From Januvia] Allergy Intermediate muscle Verified 12/25/24 08:22 spasms ibuprofen AdvReac Severe Renal Verified 12/25/24 08:22 Failure ketorolac [From Toradol] AdvReac Severe Renal Verified 12/25/24 08:22 Failure doxycycline AdvReac Intermediate RASH Verified 12/25/24 08:22 tetracycline AdvReac Intermediate RASH Verified 12/25/24 08:22 carvedilol AdvReac Mild lip Verified 12/25/24 08:22 numbness DIURETICS AdvReac Severe unable to Uncoded 12/25/24 08:22 take because of kidneys Consultations 12/29/24 16:25 ED Decision to Admit Stat Ordered Studies 12/29/24 15:03 CT Abd and Pelvis [CT abd pelvis wo con] Stat 12/29/24 16:40 US venous doppler LE RT Stat Hospital Course (1) Influenza A: (2) Acute kidney injury: (3) Non-ST elevation (NSTEMI) myocardial infarction: (4) Generalized weakness: (5) Leg edema, right: (6) Diarrhea: (7) Pressure ulcer of toe of right foot, stage 3: Plan 59 year old female, presented with URI symptoms and diarrhea in the setting of influenza. #Influenza, Diarrhea - Resolved: - +Influenza - symptoms x 5 days prior to admission; Tamiflu deferred - C. diff/stool PCR negative - diarrhea resolved - PT/OT evaluations completed, mobility/functional status at baseline - recommended return to home upon discharge #KHANG - Improving: - creatine 1.93 on admission (baseline 1.3-1.6) - Cr 1.69 on AM of discharge - Suspect prerenal in the setting of poor PO intake and diarrhea - Torsemide held on admission - patient to resume at reduced dose of 20mg daily - f/u BMP ordered for 01/03, recommend close PCP follow up to up-titrate Torsemide as appropriate. #T2DM with diabetic ulcer, right foot: - Continue to follow up with endocrinology and wound care #LE Edema Right>Left - Stable - RLE venous Doppler negative #Right Adrenal Fat Containing Mass - noted again on CT at time of admission, increased size - recommend outpatient f/u Total Time Total Time Spent Total Time Spent (In Minutes): see attending attestation Discharge Plan Discharge Items Patient Disposition: Home - Self-Care Reason For Visit: INFLUENZA Discharge Diagnosis: Influenza, KHANG Activity: Resume your previous activity Non-emergency contact: Primary Care Provider Call non-emergency contact if: you have any medication questions and your symptoms worsen Follow-up/Referrals: Sara Aragon MD [Primary Care Provider] - Diet: Heart Healthy and Low Sodium (2gm) Ambulatory Orders: Basic Metabolic Panel (Routine) Timeframe: 2 Days Location: Determined by Patient Ordered By: Rayray Gallardo Attending Provider Instructions: You were admitted to the hospital with influenza and an acute kidney injury; you were treated with IV fluids. Following discharge, it is important that you continue to maintain adequate fluid intake, particularly if you continue to have some amount of diarrhea. Also, please continue to monitor your daily weights to keep an eye on your overall fluid balance. Please follow up promptly with your PCP, as they may want to review your labs to monitor kidney function. Until your appointment, please hold the torsemide. We have placed an order for a basic metabolic panel - please have your blood drawn on Monday01/03/25. A discharge summary will be sent to your primary care physician to ensure continuity of care. Please bring this discharge summary with you to your next office appointment so that your provider can review it at that time. Medications: Your medication list has been reviewed and reconciled upon discharge to ensure accuracy and continuity of care. An updated list of all your medications is included with your hospital discharge paperwork. Please review this list closely and make note of any changes to your medications. Follow up appointments: - Make a follow up appointment with your PCP within the next week. It is very important that you follow up with them shortly after discharge from the hospital. - Keep all of your follow up appointments as already scheduled. If you cannot make an appointment, notify your provider. CONTACT YOUR PRIMARY CARE PROVIDER if you experience any of the following: - Difficulty following your treatment plan - Difficulty taking any of your medications CALL 911 OR GO TO THE EMERGENCY DEPARTMENT if you experience any of the following: - Sudden, severe abdominal pain or nausea/vomiting - Severe chest pain or chest pain that radiates to your jaw or arm - Sudden, severe shortness of breath or difficulty breathing Pending Studies at Discharge: No Stand-Alone Forms: My [employer], Smoking Cessation Medications and DC Order Prescriptions: Continued spironolactone 25 mg tablet 25 mg PO DAILY aspirin 81 mg tablet,delayed release (DR/EC) 81 mg PO DAILY PRN (Reason: chest discomfort) ondansetron HCl 4 mg tablet 4 mg PO Q6H PRN (Reason: nausea and vomiting) (DME) insulin syringe-needle U-100 [BD Insulin Syringe] 1 mL 28 gauge x 1/2" syringe See Rx Instructions .Route Qty: 600 3RF Rx Instructions: Inject insulin six times daily insulin aspart U-100 [Novolog U-100 Insulin aspart] 100 unit/mL solution See Rx Instructions .ROUTE .COMPLEX MDD 100 units Qty: 30 5RF Rx Instructions: Inject 20-30 units three times a day with meals plus sliding scale; Inject 30-40 units TID 12/29-Based on her meter reading and carb intake, per pt it's up to around 35 units (DME) OneTouch Verio test strips Strip See Rx Instructions .ROUTE .MEDSUPPLY Qty: 300 3RF Rx Instructions: Test blood sugar three times daily insulin glargine [Lantus U-100 Insulin] 100 unit/mL solution 80 unit subcut BID Qty: 150 1RF (DME) lancets [OneTouch Delica Lancets] 30 gauge misc See Rx Instructions .ROUTE .MEDSUPPLY Qty: 100 Rx Instructions: Test blood sugar four times daily diphenhydramine HCl [Allergy (diphenhydramine)] 25 mg capsule 25 - 100 mg PO DAILY PRN (Reason: allergies) Rx Instructions: 25mg-100mg PO daily PRN; bisacodyl 5 mg tablet,delayed release (DR/EC) 10 mg PO Q7D PRN (Reason: Constipation) Rx Instructions: currently on hold carvedilol 25 mg tablet 25 mg PO BID Rx Instructions: must administer with a meal/food Digestive Advantage Prob Gummy 250 million cell tablet,chewable 500 cell PO UD Rx Instructions: 500 cell daily. currently on hold per pt isosorbide mononitrate 60 mg tablet extended release 24 hr 90 mg PO DAILY rosuvastatin 40 mg tablet 40 mg PO HS Qty: 90 3RF cetirizine [Zyrtec] 10 mg Tablet 10 mg PO DAILY PRN (Reason: allergies) nitroglycerin [Nitrostat] 0.4 mg Tablet, Sublingual 0.4 mg sublingual UD PRN (Reason: chest pain) Qty: 30 0RF hydrocodone-acetaminophen 5-325 mg tablet 0.5 tab PO Q6H PRN (Reason: Pain) Rx Instructions: takes half tab with her Zyrtec as the pain medication makes her itchy and usually takes with 500mg tylenol. sucralfate 1 gram tablet 1 g PO UD Rx Instructions: takes on and off when she has pains. Hasnt used in the last 3 days Systane (PF) 0.4-0.3 % Dropperette 1 drp OPHTHALMIC (EYE) QID acetaminophen 500 mg Tablet 500 mg PO DIRECTED PRN (Reason: Pain) Rx Instructions: usually takes with her half tab of hydrocodone Held torsemide 60 mg tablet 40 mg PO DAILY Hold Instructions: Resume on 01/07/25. Please hold until you follow up with your PCP - they may want to repeat lab work prior to restarting this medication. Rx Instructions: per pt she alternates 40-60 but hasnt taking in last two days. Discharge Orders: Discharge Order (Routine); Ordered 01/01/25 Ordered By: Rayray Francisco Admission Data Admit Date/Time: 12/29/24 17:17 Attending Provider: Raheem Way Admit Provider: Destiny Echeverria Primary Care Provider: Sara Aragon Other Providers: Eric Clemons Other Interventions: Discharge Summary Assessment (RN) Last Done: 01/01/25 13:47 Supervising Physician Co-Signing Physician Notes Attending attestation Pt seen and examined in concert with Dr. Francisco. In agreement with the documented findings as noted in the resident documentation with any exceptions or additions as noted here. Essential resolution of diarrheal episodes. Ongoing ambulatory dysfunction be nefiting from rolling walker. On examination, S1/S2 nl RRR no MCG. CTAB. Abd NT/ND BS+ve Influenza with diarrhea - improved symptoms. Encourage outpatient follow up with PT/OT KHANG - improved following IV fluids. HFpEF - resume home diuretic regimen at 50% with close follow up for repeat labs to avoid further dehydration . DMII - resume home regimen R adrenal fat containing mass - recommend follow up with PCP Else see resident documentation as noted. Total attending physician time spent with this patient's care on the day of discharge: 35 minutes. Resident Activity Tracking Resident Involvement: Resident Care Provided Care Provided: Adult Hospital Medicine
--- NOTE | 2025-01-02 14:01 | Coding Query ---
To promote full compliance with coding requirements relating to patient care, physician participation is requested in all cases of mash tub cooker uncertainty. Please assist us with the question(s) below: Please specify the known or suspected type by placing an "X" within the parenthesis (x). A diabetic ulcer of Right Foot If possible, please check the box that provides the specific stage of the diabetic ulcer ( ) limited to breakdown of skin ( ) with fat layer exposed ( ) with necrosis of muscle ( ) with necrosis of bone ( ) with muscle involvement without evidence of necrosis ( ) with bone involvement without evidence of necrosis ( ) with other specified severity (x) with unspecified severity A pressure ulcer of Toe of Right Foot If possible, please check the box that provides the specific stage of the pressure ulcer ( ) Stage 1 ( ) Stage 2 ( ) Stage 3 ( ) Stage 4 ( ) Unstageable ( x) Unspecified Stage Thank you Muna ALCOCER
== END 2025-01-01 14:18 | disposition home health service (06) | DRG 194 ==
LOC: ED 13:30 → EDINP 17:17 → SUATTDRO 17:17 → EDINP 19:21 → 3E 22:18

== ENCOUNTER 2025-05-23 19:16 | Inpatient (IN) ==
[2025-05-23 19:49] LABS: Hematocrit (blood only) 32.4 % (37.0-47.0); Hemoglobin 11.2 g/dl (12.0-16.0); Immature Granulocytes # (auto) 0.04 K/uL (0.01-0.20); Immature Granulocytes % (auto) 0.3 %; Mean Corpuscular Hemoglobin 27.8 pg (25.0-34.0); Mean Corpuscular Volume 80.4 fL (80.0-100.0); Platelet Count 363 K/uL (130-400); RDW Standard Deviation 45.4 fL (36.4-46.3); Red Blood Count 4.03 M/uL (4.20-5.40); White Blood Count 12.20 K/ul (4.8-10.8)
[2025-05-23] MEDS: CEFEPIME 2000MG 2,000 MG/20 ML SYR IV STA (19:56)
[2025-05-23 20:00] LABS: Base Excess VBG -0.4 mEq/L; HCO3 VBG 23 mmol/L; Oxygen Saturation VBG 89.7 %; PCO2 VBG 33 mmHg (38-50); PO2 VBG 57 mmHg; pH VBG 7.45 (7.36-7.41)
[2025-05-23 20:08] LABS: Alanine Aminotransferase 12.0 U/L (7-52); Alkaline Phosphatase 132.0 U/L (34-104); Anion Gap 13.0 (3-11); Bilirubin,Total 0.8 mg/dl (0.2-1.0); Blood Urea Nitrogen 49.0 mg/dl (6-23); Calcium 9.6 mg/dl (8.6-10.3); Carbon Dioxide 21.0 mmol/L (21-32); Chloride 102.0 mmol/L (98-107); Creatinine Clr Calc Pharmacy 43.7 ml/min; Glucose 177.0 mg/dl (70-99(Fasting)); Magnesium 2.0 mg/dl (1.7-2.4); Potassium 3.8 mmol/L (3.5-5.1); Sodium 136.0 mmol/L (136-145); Total Protein 7.6 gm/dl (6.0-8.3)
--- NOTE | 2025-05-23 20:18 | Emergency Department Note ---
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 ABDOMEN and PELVIS: Intraperitoneal space: Unremarkable. Bones/joints: Old fracture of the left inferior pubic ramus. Soft tissues: Patchy haziness and calcifications in the subcutaneous tissues near the sacral coccygeal region. Presumed dependent edema in the soft tissues of the back. Thinning and laxity in the anterior abdominal wall/ wide-mouth ventral hernia. Vasculature: No acute process. Lymph nodes: Shotty nodes. IMPRESSION: 1. Right adrenal myelolipoma measuring roughly 6.1 cm. 2. Splenomegaly, 14.7 cm. 3. Nonobstructing left nephrolith. Electronically signed by: Carlos Schrader M.D. 05/23/25 23:33 PM Discharge Plan Visit Data Chief Complaint: Urinary Symptoms Stated Complaint: VOMITING ED Provider: Mychal Curtis Discharge Problem: Complicated urinary tract infection, KHANG (acute kidney injury), Leukocytosis, Acute respiratory alkalosis Patient Disposition: Admitted As Inpatient Condition: Fair Discharge Instructions Interventions: ED Discharge Assessment Last Done: 05/24/25 00:58
[2025-05-23 20:27] LABS: Appearance Urine Cloudy (Clear); Bacteria Urine Automated None Seen (None Seen); Epithelial Cell Urine Auto 0-2 /hpf (0-2); Glucose Urine UA Negative (Negative); RBC Urine Automated 0-2 /hpf (0-2); WBC Urine Automated >50 /hpf (0-5)
[2025-05-23 20:37] LABS: INR 1.1 (0.9-1.1); Partial Thromboplastin Time 26 Seconds (21-31); Prothrombin Time 11.4 Seconds (9.0-12.0)
[2025-05-23] MEDS: PLASMA-LYTE A 500 ML IV ONE (20:38)
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
[2025-05-23] MEDS: ONDANSETRON INJ 2 MG/ML 2 ML VIAL IV STA (22:50)
--- NOTE | 2025-05-23 22:54 | XRay Report ---
Exam(s): XR CXR 1 VIEW EXAM: XR Chest, 1 View CLINICAL HISTORY: Reason for exam: Sepsis. TECHNIQUE: Frontal view of the chest. COMPARISON: 12/29/24. FINDINGS: Lungs: No confluent consolidation or overt edema. Pleural space: No pleural effusion. No pneumothorax. Mediastinum: Unremarkable. Bones/joints: No acute fracture. Upper abdomen: Unremarkable as visualized. IMPRESSION: No acute cardiopulmonary disease. Electronically signed by: Carlos Schrader M.D. 05/23/25 22:53 PM
[2025-05-23] MEDS ORDERED: CARBOHYDRATES FOR HYPOGLYCEMIA PO PRN (23:08)
[2025-05-23] MEDS ORDERED: GLUCOSE 40% GEL 15 GM TUBE PO PRN (23:08)
[2025-05-23] MEDS ORDERED: GLUCOSE 10 TAB/TUBE PO PRN (23:08)
[2025-05-23] MEDS ORDERED: GLUCAGON FOR INJ 1 MG VIAL SQ PRN (23:08)
[2025-05-23] MEDS ORDERED: DEXTROSE 50% 50 ML SYRINGE IV PRN (23:08)
[2025-05-23] MEDS ORDERED: PHARMACY GLYCEMIC MGMT CONSULT PRN (23:08)
--- NOTE | 2025-05-23 23:33 | CT Scan Report ---
Exam(s): CT ABDOMEN + PELVIS Without Contrast EXAM: CT Abdomen and Pelvis Without Intravenous Contrast CLINICAL HISTORY: Reason for exam: sepsis, likely urinary, CKD. TECHNIQUE: Axial computed tomography images of the abdomen and pelvis without intravenous contrast. CTDI is 27.34 mGy and DLP is 0.23 mGy-cm. Automated exposure control was utilized for the study. A dose lowering technique was utilized adhering to the principles of ALARA. COMPARISON: 12/29/24 FINDINGS: ABDOMEN: Liver: Unremarkable. Gallbladder and bile ducts: Cholecystectomy. Pancreas: Unremarkable. Spleen: Splenomegaly, 14.7 cm. Adrenals: Right adrenal myelolipoma measuring roughly 6.1 cm. Kidneys and ureters: Nonobstructing left nephrolith. Stomach and bowel: No andres mural thickening. Nonobstructive bowel gas pattern. PELVIS: Appendix: No findings to suggest acute appendicitis. Bladder: Unremarkable. Reproductive: Unremarkable. ABDOMEN and PELVIS: Intraperitoneal space: Unremarkable. Bones/joints: Old fracture of the left inferior pubic ramus. Soft tissues: Patchy haziness and calcifications in the subcutaneous tissues near the sacral coccygeal region. Presumed dependent edema in the soft tissues of the back. Thinning and laxity in the anterior abdominal wall/ wide-mouth ventral hernia. Vasculature: No acute process. Lymph nodes: Shotty nodes. IMPRESSION: 1. Right adrenal myelolipoma measuring roughly 6.1 cm. 2. Splenomegaly, 14.7 cm. 3. Nonobstructing left nephrolith. Electronically signed by: Carlos Schrader M.D. 05/23/25 23:33 PM
[2025-05-23] MEDS: PLASMA-LYTE A 1,000 ML IV SCH (23:59)
[2025-05-24] MEDS: LANTUS PER UNIT CHARGE SQ SCH (00:11)
[2025-05-24] MEDS: INSULIN ASPART PER UNIT CHARGE SC STA (00:12)
[2025-05-24] MEDS ORDERED: MELATONIN 3 MG TAB PO PRN (00:58)
[2025-05-24] MEDS ORDERED: POLYETHYLENE (MIRALAX) 17 GM PACK PO PRN (00:58)
[2025-05-24] MEDS ORDERED: ASPIRIN 81 MG ECTAB PO PRN (00:58)
[2025-05-24] MEDS ORDERED: NITROGLYCERIN SL 0.4 MG/TAB TAB SL PRN (00:58)
[2025-05-24 02:44] LABS: Cdiff Toxin B Gene (2yr or >) Negative Cdiff Gene (Neg)
[2025-05-24 03:16] LABS: Adenovirus F 40/41 PCR Not Detected (NotDetected); Campylobacter PCR Not Detected (NotDetected); Enteroaggregative E.coli(EAEC) Not Detected (NotDetected); Shiga-like Toxin E.coli (STEC) Not Detected (NotDetected); Vibrio species PCR Not Detected (NotDetected)
[2025-05-24] MEDS: ACETAMINOPHEN 325 MG TAB PO PRN (04:42)
[2025-05-24] MEDS: HYDROCODONE/ACETAMOPHEN 5/325MG TAB PO PRN (06:20)
[2025-05-24] MEDS: CETIRIZINE HCL 10 MG TABLET PO SCH (06:31)
[2025-05-24 07:41] LABS: Hematocrit (blood only) 32.1 % (37.0-47.0); Hemoglobin 10.9 g/dl (12.0-16.0); Mean Corpuscular Hemoglobin 27.5 pg (25.0-34.0); Mean Corpuscular Volume 80.9 fL (80.0-100.0); Platelet Count 349 K/uL (130-400); RDW Standard Deviation 46.5 fL (36.4-46.3); Red Blood Count 3.97 M/uL (4.20-5.40); White Blood Count 13.24 K/ul (4.8-10.8)
[2025-05-24 07:58] LABS: Anion Gap 13.0 (3-11); Blood Urea Nitrogen 47.0 mg/dl (6-23); Calcium 9.4 mg/dl (8.6-10.3); Carbon Dioxide 20.0 mmol/L (21-32); Chloride 101.0 mmol/L (98-107); Creatinine Clr Calc Pharmacy 40.2 ml/min; Glucose 195.0 mg/dl (70-99(Fasting)); Potassium 3.7 mmol/L (3.5-5.1); Sodium 134.0 mmol/L (136-145)
[2025-05-24] MEDS: CEFEPIME 2000MG 2,000 MG/20 ML SYR IV SCH (08:27)
[2025-05-24] MEDS: ISOSORBIDE MONO EXTENDED REL 30 MG TABCR PO SCH (08:32)
[2025-05-24] MEDS: SPIRONOLACTONE 25 MG TAB PO SCH (08:32)
[2025-05-24] MEDS: TORSEMIDE 20 MG TAB PO SCH (08:32)
[2025-05-24] MEDS: INSULIN ASPART PER UNIT CHARGE SC SCH (08:35)
[2025-05-24] MEDS: HEPARIN SOD 5,000 UNIT/0.5 ML VIAL SQ SCH (08:36)
[2025-05-24] MEDS: ARTIFICIAL TEARS OP SCH (08:41)
[2025-05-24] MEDS: ACETAMINOPHEN 1,000 MG/100 ML VIAL IV STA (10:52)
[2025-05-24] MEDS: ACETAMINOPHEN 1000 MG/100 ML IV IV ONE (12:28)
--- NOTE | 2025-05-24 12:34 | Electrocardiogram Report ---
Test Reason : Blood Pressure : */* mmHG Vent. Rate : 66 BPM Atrial Rate : 66 BPM P-R Int : 160 ms QRS Dur : 98 ms QT Int : 452 ms P-R-T Axes : 72 -13 106 degrees QTcB Int : 473 ms Poor data quality, interpretation may be adversely affected Normal sinus rhythm Low voltage QRS Poor R wave progression, consider anterior ND vs. lead placement vs. LVH Abnormal ECG When compared with ECG of 29-Dec-2024 13:36, Questionable change in initial forces of Lateral leads Confirmed by Kang Arambula ([id number]) on 05/24/2025 12:33:41 PM Referred By: Sara Aragon Confirmed By: Kang Arambula
[2025-05-24] MEDS ORDERED: ACETAMINOPHEN 1,000 MG/100 ML VIAL IV PRN (12:44)
--- NOTE | 2025-05-24 14:06 | Hospitalist Progress Note ---
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 Currently being managed with Macrobid with treatment failure. ED evaluation does reveal presence of leukocytosis with minimally decreased H&H, anion gap, and elevated renal function. She is not septic at this time, with reassuring lactate of 1.3 procalcitonin 0.2. UA suggestive of infection. Admitted for UTI, failed outpatient treatment. Troponin to be trended and will monitor on telemetry for now. #UTI/ SIRS/Multiple sources of infection: -Known UTI a/w yeast infection failed outpatient treatment with Macrobid and Diflucan.Received 500 mL Plasma-Lyte in ED. No documented history of Pseudomonas on prior cultures, but with history of DM. -H/o chronic constipation resulting to emesis now and then.No sexual history, consider associated possible bacterial vaginosis. - CBC leukocytosis 12.20, H&H 12.2/32.4: CMP Cr 2.26, BUN 47, AG 13; lactate 1.3; procalcitonin 0.2 - CBC, BMP am - UA suggestive of infection - pending cx - CTAP shows no pyelonephritis, known incidental finding of Right adrenal myelolipoma measuring roughly 6.1 cm - Zofran prn N/V - Acetaminophen prn fever/pain - Continue Cefepime IV, Fluconazole. - Consider vaginal swab tomorrow.No sexual history since 1996. Possible associated bacterial vaginosis. #KHANG/CKD In setting of known UTI and CKD, also in setting of recent vomiting. Baseline Cr 1.3-1.6. - Cr 2.26, BUN 47 - BMP am - UA suggestive of infection - tx as above - Bladder scan prn - Pt is concerned with holding HCTZ and spironolactone. If Cr worsened in am, will consider adjusting the dose. - IV Plasma-Lyte @ 125 mL/hr #Elevated troponin Pt w/ h/o NSTEMI, "SD x 2"; no current chest pain. - Troponin 24.2, pending repeat - EKG NSR, without ischemic changes - Likely 2/2 demand #N/V/D/Norovirus infection: No abdominal pain but does, PE WNL at admission. Hx of emesis now and then because of chronic constipation. - CBC leukocytosis 12k; CMP AG 12 - Zofran prn N/V - Maalox prn - Stool studies showed Noro virus infection. Contact precautions ordered. - IVF as above #T2DM with R foot ulcer H/o DMT2, also with known wound/ulcer R foot. At home regimen includes Glargine 80U BID, Aspart SSI. - Glucose at admission 177; Most recent A1C 03/2025 @ 8.1% - SSI with target BSG range 110-150mg/dL, CF 10, carb ratio 5 - Lantus 60 BID - BSG ACHS - For wound -- CT of foot was negative for OM (04/22/2025); Encourage offloading, Aquacel Ag dressing (change M/W/F) - Continue Wound care. #HFpEF- CXR without acute findings, echo (2021) EF 55-60% , Grade 2 abnormal Left ventricular diastolic dysfunction; Follows with cardiology -Imdur, spironolactone, torsemide - Continue - I & O monitoring. -Continuous weight monitoring. #HTN- Carvedilol, Imdur, spironolactone - Continue #HLD- Rosuvastatin - continue #Pain- Hydrocodone-acetaminophen prn; PDMP independently reviewed - continue but with close monitoring of plain tylenol use as well Dispo: Admit, med/tele -- in setting of elevated troponin; downgrade as appropriate VTE Prophylaxis: Heparin refused. Admission and Anticipated Discharge Date Admission Date: May 23, 2025 Supervising Physician Co-Signing Physician Notes I personally examined the patient and verified tan points of history and exam, discussed case, and agree with decision making and plan documented by Dr. Pink. Patient is a 60-year-old female with pertinent past medical history of T2DM, hypertension, hyperlipidemia, HFpEF, CKD 3, and Charcot foot with chronic diabetic ulcer presenting with SIRS in setting of known UTI. Patient also with nausea, vomiting, and diarrhea, testing positive for norovirus. She presented with an KHANG on CKD, likely the result of dehydration. Additional source of infection is chronic right Charcot deformity with diabetic ulcer where she engages in outpatient wound care. Continue cefepime pending cultures. On IVF, monitor volume status closely. Consider vaginitis swab in am. Start fluconazole for thrush. Subjective Patient lying comfortably in bed , reports 3-4 days x rigors, nausea, vomiting, and diarrhea. Rigors at the time of examination today afternoon. Dysuria, Urinary frequency x 2 weeks. Chronic B/L back pain and discomfort. Denies CP, palpitations, SOB, cough, abdominal pain, constipation, numbness/tingling, URI symptoms, weakness, syncope, or falls Review of Systems Review of Systems: All systems reviewed & are unremarkable except as noted in Subjective Physical Exam Physical Exam: General: No acute distress, sitting in chair in room B9 and not the hospital bed Skin: Warm and dry Head: Normocephalic, atraumatic Eyes: PERRL, conjunctivae clear, sclera non-icteric ENT: External ear and ear canal without swelling; nose atraumatic; good dentition, tongue normal appearance, pharynx normal Neck: Supple, no LAD Cardio: RRR, murmur auscultated, no G/R, S1 and S2 normal Resp: No respiratory distress, Lungs CTA in all lobes bilaterally, no wheezes, rales, or rhonchi Abdomen: Soft, symmetric, nontender; No masses or hepatosplenomegaly; Bowel sounds normoactive MSK: No deformities; pulses palpable and equal; Wound in right foot with bandaged dressing. Neuro: Awake, alert; Sensation intact bilaterally; CN grossly intact Psych: Appropriate mood and affect; good judgement and insight. Results & Data Results & Data Vital Signs (Past 12 Hours) Vital Signs Temp Pulse Pulse Resp BP BP Pulse Ox 05/24/25 13:55 37.6 C H 68 33 H 133/51 L 96 05/24/25 08:30 67 21 111/62 97 05/24/25 06:31 37.5 C 05/24/25 05:33 38.0 C H 66 24 124/53 L 94 05/24/25 04:33 37.9 C H 05/24/25 03:15 64 20 105/58 L 97 O2 Del Method 05/24/25 13:55 05/24/25 08:30 Room Air 05/24/25 06:31 05/24/25 05:33 05/24/25 04:33 05/24/25 03:15 Room Air Resident Activity Tracking Resident Involvement: Resident Care Provided Care Provided: Adult Hospital Medicine (2) Diabetic ulcer of toe of left foot Diabetes mellitus type: type 2 Non-pressure ulcer stage: with fat layer exposed Qualified Code(s): E11.621 - Type 2 diabetes mellitus with foot ulcer; L97.522 - Non-pressure chronic ulcer of other part of left foot with fat layer exposed (3) CKD (chronic kidney disease) stage 3, GFR 30-59 ml/min Chronic kidney disease stage 3 subtype: stage 3a (GFR 45-59) Qualified Code(s): N18.31 - Chronic kidney disease, stage 3a
--- NOTE | 2025-05-24 14:52 | Pharmacy Report ---
Pharmacy Glycemic Short Note 2 - Date of Service May 24, 2025 - Glycemic Short BSG Results (Last 24 hours): 05/23/25 05/23/25 05/24/25 19:31 23:57 07:11 Glucose 177 H 195 H POC Glucose 227 H 05/24/25 05/24/25 08:04 10:54 Glucose POC Glucose 259 H 239 H OUTPATIENT ANTIDIABETIC REGIMEN: * Lantus 80 units SQ BID * Novolog 30-40 units SQ TID * HbA1c: 8.1% (04/01/25) ASSESSMENT: * Ms Shea is a 60yo diabetic F admitted with UTI/KHANG and N/V/D for the past 3-4 days. * Insulin orders initiated conservatively on admission. BSGs have been above goal, so orders have been adjusted today. * Continue to titrate Lantus cautiously in the setting of KHANG and decreased PO intake. * Pharmacy will continue to follow and adjust regimen as indicated. PLAN FOR INPATIENT GLYCEMIC CONTROL: * Hold outpatient oral diabetes medications * Basal insulin * Lantus 0-70 units SQ BID, per scale (see EMR for details) * Bolus insulin * NovoLog per scale ACHS or Q6hrs while NPO * Goal Range: Low 110 mg/dL - High 150 mg/dL * Correction Factor: 15 mg/dL/unit * Nutritional / Prandial insulin per carb ratio of 1 unit per 4 grams CHO consumed
[2025-05-24 16:07] LABS: Anion Gap 12.0 (3-11); Blood Urea Nitrogen 47.0 mg/dl (6-23); Calcium 10.0 mg/dl (8.6-10.3); Carbon Dioxide 22.0 mmol/L (21-32); Chloride 102.0 mmol/L (98-107); Creatinine Clr Calc Pharmacy 35.6 ml/min; Glucose 108.0 mg/dl (70-99(Fasting)); Potassium 3.6 mmol/L (3.5-5.1); Sodium 136.0 mmol/L (136-145)
[2025-05-24] MEDS: ONDANSETRON INJ 2 MG/ML 2 ML VIAL IV PRN (16:24)
[2025-05-24] MEDS: PLASMA-LYTE A 1,000 ML IV SCH (18:08)
[2025-05-24] MEDS: ROSUVASTATIN CALCIUM 20 MG TAB PO SCH (20:04)
[2025-05-25 06:36] LABS: Hematocrit (blood only) 30.9 % (37.0-47.0); Hemoglobin 10.3 g/dl (12.0-16.0); Immature Granulocytes # (auto) 0.04 K/uL (0.01-0.20); Immature Granulocytes % (auto) 0.3 %; Mean Corpuscular Hemoglobin 27.2 pg (25.0-34.0); Mean Corpuscular Volume 81.7 fL (80.0-100.0); Platelet Count 311 K/uL (130-400); RDW Standard Deviation 47.4 fL (36.4-46.3); Red Blood Count 3.78 M/uL (4.20-5.40); White Blood Count 11.43 K/ul (4.8-10.8)
[2025-05-25 06:56] LABS: Anion Gap 13.0 (3-11); Blood Urea Nitrogen 48.0 mg/dl (6-23); Calcium 9.1 mg/dl (8.6-10.3); Carbon Dioxide 21.0 mmol/L (21-32); Chloride 105.0 mmol/L (98-107); Creatinine Clr Calc Pharmacy 39.4 ml/min; Potassium 3.6 mmol/L (3.5-5.1); Sodium 139.0 mmol/L (136-145)
--- NOTE | 2025-05-25 11:35 | Hospitalist Progress Note ---
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 Currently being managed with Macrobid with treatment failure. #UTI/ SIRS/Multiple sources of infection: -Known UTI a/w yeast infection failed outpatient treatment with Macrobid and Diflucan.Received 500 mL Plasma-Lyte in ED. No documented history of Pseudomonas on prior cultures, but with history of DM. -H/o chronic constipation resulting to emesis now and then.No sexual history, consider associated possible bacterial vaginosis. - CBC leukocytosis 11.43, Cr 2.26->2.05 , BUN 48, AG 13; CBC, BMP am - UA suggestive of infection - pending cx - CTAP shows no pyelonephritis, known incidental finding of Right adrenal myelolipoma measuring roughly 6.1 cm - Zofran prn N/V - Acetaminophen prn fever/pain - Continue Cefepime IV, Fluconazole, Nystatin powder - No sexual history since 1996. Possible associated bacterial vaginosis. #KHANG/CKD In setting of known UTI and CKD, also in setting of recent vomiting. Baseline Cr 1.3-1.6. - Cr 2.26->2.05 BUN 48 - BMP am - UA suggestive of infection - tx as above - Bladder scan prn - Pt is concerned with holding HCTZ and spironolactone. If Cr worsened in am, will consider adjusting the dose. - Consulted Nephrology and agreed to continue hold on Torsemide. Will likely restart tomorrow at 20mg daily. - No IV fluids today. #Elevated troponin Pt w/ h/o NSTEMI, "MA x 2"; no current chest pain. - Troponin 25.8, pending repeat - EKG NSR, without ischemic changes - Likely 2/2 demand #N/V/D/Norovirus infection: No abdominal pain but does, PE WNL at admission. Hx of emesis now and then because of chronic constipation. - CBC leukocytosis 11.43k; CMP AG 13 - Zofran prn N/V - Maalox prn - Stool studies showed Noro virus infection. Contact precautions ordered. #T2DM with R foot ulcer H/o DMT2, also with known wound/ulcer R foot. At home regimen includes Glargine 80U BID, Aspart SSI. - Glucose at admission 177; Most recent A1C 03/2025 @ 8.1% - SSI with target BSG range 110-150mg/dL, CF 10, carb ratio 5 - Lantus 60 BID - BSG ACHS - For wound -- CT of foot was negative for OM (04/22/2025); Encourage offloading, Aquacel Ag dressing (change /W/) - Continue Wound care. - Consider adding metronidazole for anerobic coverage for foot ulcer. #HFpEF- CXR without acute findings, echo (2021) EF 55-60% , Grade 2 abnormal Left ventricular diastolic dysfunction; Follows with cardiology -Imdur, spironolactone, torsemide - Continue - I & O monitoring. -Continuous weight monitoring. #HTN- Carvedilol, Imdur, spironolactone - Continue #HLD- Rosuvastatin - continue #Pain- Hydrocodone-acetaminophen prn; PDMP independently reviewed - continue but with close monitoring of plain tylenol use as well Dispo: Admit, med/tele -- in setting of elevated troponin; downgrade as appropriate VTE Prophylaxis: Heparin refused. Admission and Anticipated Discharge Date Admission Date: May 23, 2025 Supervising Physician Co-Signing Physician Notes I personally examined the patient and verified tan points of history and exam, discussed case, and agree with decision making and plan documented by Dr. Pink. Patient is a 60-year-old female with pertinent past medical history of T2DM, hypertension, hyperlipidemia, HFpEF, CKD 3, and Charcot foot with chronic diabetic ulcer presenting with SIRS in setting of known UTI and chronic infected diabetic foot ulcer. No evidence of osteomyelitis on CT imaging, patient reports she cannot have MRI. Patient also positive for norovirus and dehydrated. Caution with fluids in setting of heart failure. Holding torsemide. Nephrology on board. Monitor volume status closely. Add metronidazole to cefepime for infected diabetic foot ulcer. Wound care consult placed. Subjective Patient lying comfortably in bed , reports loose stools still going on. Rigors resolved. Dysuria, Urinary frequency x 2 weeks. Chronic B/L back pain and discomfort. Denies CP, palpitations, SOB, cough, abdominal pain, constipation, numbness/tingling, URI symptoms, weakness, syncope, or falls Review of Systems 2 Review of Systems: All other systems were reviewed and negative except as noted in HPI Physical Exam 2 Physical Exam: General: No acute distress, sitting in chair in room B9 and not the hospital bed Skin: Warm and dry Head: Normocephalic, atraumatic Eyes: PERRL, conjunctivae clear, sclera non-icteric ENT: External ear and ear canal without swelling; nose atraumatic; good dentition, tongue normal appearance, pharynx normal Neck: Supple, no LAD Cardio: RRR, murmur auscultated, no G/R, S1 and S2 normal Resp: No respiratory distress, Lungs CTA in all lobes bilaterally, no wheezes, rales, or rhonchi Abdomen: Soft, symmetric, nontender; No masses or hepatosplenomegaly; Bowel sounds normoactive MSK: No deformities; pulses palpable and equal; trace pitting edema BLE, R > L (at patient's baseline). Neuro: Awake, alert; Sensation intact bilaterally; CN grossly intact Psych: Appropriate mood and affect; good judgement and insight. Results & Data Results & Data Vital Signs (Past 12 Hours) Vital Signs Temp Pulse Pulse Resp BP BP BP 05/25/25 08:09 37.1 C 56 L 16 135/73 05/25/25 07:39 60 05/25/25 03:14 36.9 C 59 L 20 109/53 L 05/25/25 01:00 05/24/25 23:36 36.5 C 61 16 132/70 Pulse Ox Pulse Ox O2 Del Method O2 Del Method 05/25/25 08:09 98 Room Air 05/25/25 07:39 05/25/25 03:14 96 Room Air 05/25/25 01:00 95 Room Air 05/24/25 23:36 95 Room Air Resident Activity Tracking Resident Involvement: Resident Care Provided Care Provided: Adult Hospital Medicine (2) Diabetic ulcer of toe of left foot Diabetes mellitus type: type 2 Non-pressure ulcer stage: with fat layer exposed Qualified Code(s): E11.621 - Type 2 diabetes mellitus with foot ulcer; L97.522 - Non-pressure chronic ulcer of other part of left foot with fat layer exposed (3) CKD (chronic kidney disease) stage 3, GFR 30-59 ml/min Chronic kidney disease stage 3 subtype: stage 3a (GFR 45-59) Qualified Code(s): N18.31 - Chronic kidney disease, stage 3a
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
[2025-05-25] MEDS: FLUCONAZOLE 50 MG TAB PO ONE (14:46)
[2025-05-25] MEDS: NYSTATIN/TRIAMCIN CR 15 GM TUBE EXT SCH (20:09)
[2025-05-25] MEDS: ONDANSETRON 4 MG OD TAB PO STA (21:15)
[2025-05-25] MEDS: diphenhydrAMINE Capsule 25 MG CAP PO PRN (21:39)
[2025-05-25] MEDS: metroNIDAZOLE 500 MG/100 ML BAG IV SCH (21:52)
[2025-05-26 08:12] LABS: Hematocrit (blood only) 30.2 % (37.0-47.0); Hemoglobin 10.1 g/dl (12.0-16.0); Immature Granulocytes # (auto) 0.03 K/uL (0.01-0.20); Immature Granulocytes % (auto) 0.3 %; Mean Corpuscular Hemoglobin 27.3 pg (25.0-34.0); Mean Corpuscular Volume 81.6 fL (80.0-100.0); Platelet Count 356 K/uL (130-400); RDW Standard Deviation 46.5 fL (36.4-46.3); Red Blood Count 3.70 M/uL (4.20-5.40); White Blood Count 9.01 K/ul (4.8-10.8)
[2025-05-26 08:33] LABS: Anion Gap 11.0 (3-11); Blood Urea Nitrogen 45.0 mg/dl (6-23); Calcium 9.2 mg/dl (8.6-10.3); Carbon Dioxide 23.0 mmol/L (21-32); Chloride 103.0 mmol/L (98-107); Creatinine Clr Calc Pharmacy 33.2 ml/min; Potassium 3.5 mmol/L (3.5-5.1); Sodium 137.0 mmol/L (136-145)
--- NOTE | 2025-05-26 11:31 | Nephrology Progress Note ---
Date of Service May 26, 2025 Assessment & Plan Admission and Anticipated Discharge Date Admission Date: May 23, 2025 Subjective Assessment & Plan (1) KHANG (acute kidney injury): Patient with KHANG on CKD due to ischemic ATN in setting Norovirus and infected right foot wound. Cr was 2.2 then down to 2 but overnight went up again to 2.41 Agree with holding torsemide today. Will also stop Aldactone but already got AM dose. 1 liter Plasmalyte at 60 ml/hr. Avoid contrast and NSAIDS. Daily labs. Will restart Diuretics one at a time (2) Heart failure with preserved ejection fraction: She is currently euvolemic. Holding torsemide due to acute infection. Low salt diet. (3) Type 2 diabetes mellitus with foot ulcer: Continue cefepime renally dosed. S----Feels little bit better. Almost no diarrhea now. Appetite is still poor. Denies SOB but does have edema in her RT LE. Physical Exam Physical Exam: General exam: Appears comfortable, no acute distress Neck: No JVD, neck is supple Respiratory system: Clear breath sounds bilaterally. Gastrointestinal: Abdomen is soft, non distended, non tender, bowel sounds are present CVS: Regular rate and rhythm. No murmurs, rubs or gallops Musculoskeletal: No joint or muscle tenderness Extremities: right leg edema. Infected right foot wound-bandaged Neuro: Oriented, no tremors, no focal neurological deficits Skin: No rashes Results & Data Vital Signs (Past 12 Hours) Vital Signs Temp Pulse Pulse Resp BP Pulse Ox Pulse Ox 05/26/25 11:19 37.1 C 60 16 99/45 L 97 05/26/25 11:12 05/26/25 08:47 37.5 C 59 L 16 113/55 L 98 05/26/25 07:14 60 05/26/25 03:38 37.2 C 58 L 18 134/77 97 05/26/25 01:00 95 O2 Del Method O2 Del Method 05/26/25 11:19 Room Air 05/26/25 11:12 Room Air 05/26/25 08:47 Room Air 05/26/25 07:14 05/26/25 03:38 Room Air 05/26/25 01:00 Room Air
[2025-05-26] MEDS: PLASMA-LYTE A 1,000 ML IV SCH (11:45)
--- NOTE | 2025-05-26 12:15 | Hospitalist Progress Note ---
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 Currently being managed with Macrobid with treatment failure. #UTI/ SIRS/Multiple sources of infection: -Known UTI a/w yeast infection failed outpatient treatment with Macrobid and Diflucan.Received 500 mL Plasma-Lyte in ED. No documented history of Pseudomonas on prior cultures, but with history of DM. -H/o chronic constipation resulting to emesis now and then.No sexual history, consider associated possible bacterial vaginosis. - CBC leukocytosis 11.43, Cr 2.26->2.05 , BUN 48, AG 13; CBC, BMP am - UA suggestive of infection - pending cx - CTAP shows no pyelonephritis, known incidental finding of Right adrenal myelolipoma measuring roughly 6.1 cm - Zofran prn N/V - Acetaminophen prn fever/pain - Changed Cefepime I to Ceftriaxone, Fluconazole, Nystatin powder - No sexual history since 1996. Possible associated bacterial vaginosis. #KHANG/CKD In setting of known UTI and CKD, also in setting of recent vomiting. Baseline Cr 1.3-1.6. - Cr 2.26->2.05 BUN 48 - BMP am - UA suggestive of infection - tx as above - Bladder scan prn - Pt is concerned with holding HCTZ and spironolactone. If Cr worsened in am, will consider adjusting the dose. - Consulted Nephrology and agreed to continue Torsemide 20 mg. y. -IV fluids plasmalyte #Elevated troponin Pt w/ h/o NSTEMI, "LA x 2"; no current chest pain. - Troponin 25.8, pending repeat - EKG NSR, without ischemic changes - Likely 2/2 demand #N/V/D/Norovirus infection: No abdominal pain but does, PE WNL at admission. Hx of emesis now and then because of chronic constipation. - CBC leukocytosis 11.43k; CMP AG 13 - Zofran prn N/V - Maalox prn - Stool studies showed Noro virus infection. Contact precautions ordered. #T2DM with R foot ulcer H/o DMT2, also with known wound/ulcer R foot. At home regimen includes Glargine 80U BID, Aspart SSI. - Glucose at admission 177; Most recent A1C 03/2025 @ 8.1% - SSI with target BSG range 110-150mg/dL, CF 10, carb ratio 5 - Lantus 60 BID - BSG ACHS - For wound -- CT of foot was negative for OM (04/22/2025); Encourage offloading, Aquacel Ag dressing (change M/W/F) - Continue Wound care. - Consider adding metronidazole for anerobic coverage for foot ulcer. #HFpEF- CXR without acute findings, echo (2021) EF 55-60% , Grade 2 abnormal Left ventricular diastolic dysfunction; Follows with cardiology -Imdur, spironolactone, torsemide - Continue - I & O monitoring. -Continuous weight monitoring. #HTN- Carvedilol, Imdur, spironolactone - Continue #HLD- Rosuvastatin - continue #Pain- Hydrocodone-acetaminophen prn; PDMP independently reviewed - continue but with close monitoring of plain tylenol use as well Dispo: Admit, med/tele -- in setting of elevated troponin; downgrade as appropriate VTE Prophylaxis: Heparin refused. Admission and Anticipated Discharge Date Admission Date: May 23, 2025 Supervising Physician Co-Signing Physician Notes I personally examined the patient and verified all tan points of history and exam, discussed case, and agree with decision making with Dr Pink Mouth dry. Headache earlier and some dizziness. Dysuria down to a 3 out of 10. Very worried about foot. Vitals noted, in general she is awake and alert no distress. HEENT normocephalic atraumatic mucous membranes are slightly dry, there are no plaques consistent with thrush, her tongue is dry with dried out papillae that create a whitish hue, but is only in an entirely on the top and middle of her tongue. Extremityshe does not allow myself or resident physician to examine right lower extremity despite my telling her that it would obviously make it much harder for me to be able to appropriately take care of her. There is no tracking erythema proximal to the dressing and nothing appears to be very tender. Labs and diagnostics noted. Foot woundchronic. From what I can see it does not appear that there is cellulitisI do suspect some degree of bacterial overgrowth/contamination probably impeding wound healing, continue antibiotics in the form of Rocephin. Serial exams, wound eval, await sensitivities on culture. AKIAKI, lower and blood pressures, headache, dizziness, and dry mouth all strongly suggest that she is dry. This has frequently been the case when arrived taking care of her. She is allowing nephrology to order a liter of Plasma-Lyte. Continue to hold diuretics. Does not appear to have thrushher refractory oral symptoms appear to be due to dry mucosa UTIcontinue antibiotics in the form of Rocephin. DVT prophylaxisheparin subcu Subjective Patient lying comfortably in bed , reports new onset headache and dizziness today. 1 episode of stool incontinence gets while changing clothes or sleeping , emesisis now and then ,loose stools resolved. Rigors resolved. Dysuria, Urinary frequency has decreased from before. mouth feels sore and had gum bleed while brushing teeth. Denies CP, palpitations, SOB, cough, abdominal pain, constipation, numbness/tingling, URI symptoms, weakness, syncope, or falls Review of Systems Review of Systems: All other systems were reviewed and negative except as noted in HPI Physical Exam Physical Exam: General: No acute distress, sitting in chair in room B9 and not the hospital bed Skin: Warm and dry Head: Normocephalic, atraumatic Eyes: PERRL, conjunctivae clear, sclera non-icteric ENT: External ear and ear canal without swelling; nose atraumatic; good dentition, tongue normal appearance, pharynx normal Neck: Supple, no LAD Cardio: RRR, murmur auscultated, no G/R, S1 and S2 normal Resp: No respiratory distress, Lungs CTA in all lobes bilaterally, no wheezes, rales, or rhonchi Abdomen: Soft, symmetric, nontender; No masses or hepatosplenomegaly; Bowel sounds normoactive MSK: No deformities; pulses palpable and equal; trace pitting edema BLE, R > L (at patient's baseline). Neuro: Awake, alert; Sensation intact bilaterally; CN grossly intact Psych: Appropriate mood and affect; good judgement and insight. Results & Data Results & Data Vital Signs (Past 12 Hours) Vital Signs Temp Pulse Pulse Resp BP Pulse Ox Pulse Ox 05/26/25 11:19 37.1 C 60 16 99/45 L 97 05/26/25 11:12 05/26/25 08:47 37.5 C 59 L 16 113/55 L 98 05/26/25 07:14 60 05/26/25 03:38 37.2 C 58 L 18 134/77 97 05/26/25 01:00 95 O2 Del Method O2 Del Method 05/26/25 11:19 Room Air 05/26/25 11:12 Room Air 05/26/25 08:47 Room Air 05/26/25 07:14 05/26/25 03:38 Room Air 05/26/25 01:00 Room Air Resident Activity Tracking Resident Involvement: Resident Care Provided Care Provided: Adult Hospital Medicine (2) Diabetic ulcer of toe of left foot Diabetes mellitus type: type 2 Non-pressure ulcer stage: with fat layer exposed Qualified Code(s): E11.621 - Type 2 diabetes mellitus with foot ulcer; L97.522 - Non-pressure chronic ulcer of other part of left foot with fat layer exposed (3) CKD (chronic kidney disease) stage 3, GFR 30-59 ml/min Chronic kidney disease stage 3 subtype: stage 3a (GFR 45-59) Qualified Code(s): N18.31 - Chronic kidney disease, stage 3a
--- NOTE | 2025-05-26 12:27 | Billing Data ---
Date of Service May 26, 2025 Coding Level of Care Code 10352 SUB INP/OBS CARE
[2025-05-26] MEDS: cefTRIAXone SODIUM 2,000 MG/50 ML BAG IV SCH (12:40)
[2025-05-26] MEDS ORDERED: FLUCONAZOLE 50 MG TAB PO SCH (12:45)
--- NOTE | 2025-05-26 14:34 | Pharmacy Report ---
Pharmacy Glycemic Short Note 2 - Date of Service May 26, 2025 - Glycemic Short BSG Results (Last 24 hours): 05/25/25 05/25/25 05/25/25 17:11 20:06 21:31 POC Glucose 105 H 121 H 80 Fasting Glucose 05/26/25 05/26/25 05/26/25 07:38 08:21 12:09 POC Glucose 162 H 266 H Fasting Glucose 131 H OUTPATIENT ANTIDIABETIC REGIMEN: * Lantus 80 units SQ BID * Novolog 30-40 units SQ TID * HbA1c: 8.1% (04/01/25) ASSESSMENT: 05/26: * Corazon received a total of 89 units of insulin yesterday (50 units were basal and 39 units were bolus). BSGs were [id number]/dL * Fasting BSG was 162mg/dL this morning. BID Lantus scale was decreased so that she will now receive 0,30, or 50 units depending on BSG as she has had some blood glucose readings that have been below goal in the evenings. * Correction factor was loosened yesterday. Will continue current bolus insulin regimen without change for now. 05/24 * Ms Shea is a 60yo diabetic F admitted with UTI/KHANG and N/V/D for the past 3-4 days. * Insulin orders initiated conservatively on admission. BSGs have been above goal, so orders have been adjusted today. * Continue to titrate Lantus cautiously in the setting of KHANG and decreased PO intake. * Pharmacy will continue to follow and adjust regimen as indicated. PLAN FOR INPATIENT GLYCEMIC CONTROL: * Hold outpatient oral diabetes medications * Basal insulin * Lantus scale SQ BID (0, 30 or 50 units--see EMR for details) * Bolus insulin * NovoLog per scale ACHS or Q6hrs while NPO * Goal Range: Low 110 mg/dL - High 150 mg/dL * Correction Factor: 20 mg/dL/unit * Nutritional / Prandial insulin per carb ratio of 1 unit per 4 grams CHO consumed
[2025-05-26] MEDS: CLOTRIMAZOLE 10 MG TROCHE BUCCAL SCH (16:01)
[2025-05-26] MEDS: PROCHLORPERAZINE 5 MG in SYRINGE 4 ML IV PRN (21:18)
[2025-05-27 08:11] LABS: Anion Gap 10.0 (3-11); Blood Urea Nitrogen 38.0 mg/dl (6-23); Calcium 8.9 mg/dl (8.6-10.3); Carbon Dioxide 22.0 mmol/L (21-32); Chloride 105.0 mmol/L (98-107); Creatinine Clr Calc Pharmacy 33.8 ml/min; Glucose 138.0 mg/dl (70-99(Fasting)); Potassium 3.6 mmol/L (3.5-5.1); Sodium 137.0 mmol/L (136-145)
[2025-05-27] MEDS: LANTUS PER UNIT CHARGE SC SCH (09:55)
[2025-05-27] MEDS: INSULIN ASPART PER UNIT CHARGE SC SCH ×2 (09:56→13:12)
--- NOTE | 2025-05-27 10:39 | Nephrology Progress Note ---
Date of Service May 27, 2025 Assessment & Plan Admission and Anticipated Discharge Date Admission Date: May 23, 2025 Subjective Assessment & Plan (1) KHANG (acute kidney injury): Patient with KHANG on CKD due to ischemic ATN in setting Norovirus and infected right foot wound. Cr was 2.2 then down to 2 but overnight went up again to 2.41 Agree with holding torsemide and Aldactone for now but will decide on daily basis. Stop IV fluid after current bag over. Creat today is about same/Slightly lower than yesterday.--so hopefully will come down from now So far no issues with SOB Avoid contrast and NSAIDS. Daily labs. (2) Heart failure with preserved ejection fraction: She is currently euvolemic. Holding torsemide and aldactone due to KHANG with acute infection. Low salt diet. (3) Type 2 diabetes mellitus with foot ulcer: Continue cefepime renally dosed. S----Feels little bit better. Almost no diarrhea now. Appetite is still poor. Denies SOB but does have edema in her RT LE. Physical Exam Physical Exam: General exam: Appears comfortable, no acute distress Neck: No JVD, neck is supple Respiratory system: Clear breath sounds bilaterally. Gastrointestinal: Abdomen is soft, non distended, non tender, bowel sounds are present CVS: Regular rate and rhythm. No murmurs, rubs or gallops Musculoskeletal: No joint or muscle tenderness Extremities: right leg edema. Infected right foot wound-bandaged Neuro: Oriented, no tremors, no focal neurological deficits Skin: No rashes Results & Data Vital Signs (Past 12 Hours) Vital Signs Temp Pulse Pulse Resp BP Pulse Ox Pulse Ox 05/27/25 07:56 60 05/27/25 07:43 37.1 C 63 18 114/82 97 05/27/25 02:48 36.8 C 62 18 126/78 96 05/27/25 01:30 95 O2 Del Method O2 Del Method 05/27/25 07:56 05/27/25 07:43 Room Air 05/27/25 02:48 Room Air 05/27/25 01:30 Room Air
--- NOTE | 2025-05-27 13:06 | Pharmacy Report ---
Pharmacy Glycemic Short Note 2 - Date of Service May 27, 2025 - Glycemic Short BSG Results (Last 24 hours): 05/26/25 05/26/25 05/26/25 17:06 20:26 23:39 Glucose POC Glucose 143 H 107 H 119 H 05/27/25 05/27/25 05/27/25 07:25 08:31 11:49 Glucose 138 H POC Glucose 139 H 187 H OUTPATIENT ANTIDIABETIC REGIMEN: * Lantus 80 units SQ BID * Novolog 30-40 units SQ TID * HbA1c: 8.1% (04/01/25) ASSESSMENT: 05/27: * Corazon received a total of 49 units of insulin yesterday (30 units were basal and 19 units were bolus). BSGs were [phone]/dL. * Fasting BSG this morning was 139mg/dL. Lantus was decreased to 20 units QAM and Lantus scale at HS also reduced (now 0, 10 or 20 units depending on BSG) since BSGs have been below goal in the evening. * Will trial tightening bolus insulin parameters at breakfast and then loosening the rest of the day also as lunch readings have been above goal and readings in the evening have been below goal. 05/26: * Corazon received a total of 89 units of insulin yesterday (50 units were basal and 39 units were bolus). BSGs were [phone]/dL * Fasting BSG was 162mg/dL this morning. BID Lantus scale was decreased so that she will now receive 0,30, or 50 units depending on BSG as she has had some blood glucose readings that have been below goal in the evenings. * Correction factor was loosened yesterday. Will continue current bolus insulin regimen without change for now. 05/24 * Ms Shea is a 60yo diabetic F admitted with UTI/KHANG and N/V/D for the past 3-4 days. * Insulin orders initiated conservatively on admission. BSGs have been above goal, so orders have been adjusted today. * Continue to titrate Lantus cautiously in the setting of KHANG and decreased PO intake. * Pharmacy will continue to follow and adjust regimen as indicated. PLAN FOR INPATIENT GLYCEMIC CONTROL: * Hold outpatient oral diabetes medications * Basal insulin * Lantus 20 units SQ q AM and Lantus scale SQ (0, 10 or 20 units--see EMR for details) at HS * Bolus insulin * NovoLog per scale ACHS or Q6hrs while NPO * Goal Range: Low 120 mg/dL - High 160 mg/dL * Breakfast: -Correction Factor: 15 mg/dL/unit -Nutritional / Prandial insulin per carb ratio of 1 unit per 3 grams CHO consumed * Lunch, dinner, HS -Correction Factor: 20 mg/dL/unit -Nutritional / Prandial insulin per carb ratio of 1 unit per 7 grams CHO consumed
--- NOTE | 2025-05-27 13:10 | Hospitalist Progress Note ---
Date of Service May 27, 2025 Assessment & Plan (1) UTI (urinary tract infection): (2) Diabetic ulcer of toe of left foot: (3) CKD (chronic kidney disease) stage 3, GFR 30-59 ml/min: (4) Heart failure with preserved ejection fraction: Plan 60-year-old female PMHx T2DM, HLD, HTN, HFpEF, CKD stage III, anxiety and depression, hypothyroidism, and known UTI presenting for vomiting and diarrhea x 3 to 4 days [employer] and ongoing dysuria, frequency of urine since 2 weeks. Currently being managed for Macrobid treatment failure. #UTI: -Known UTI a/w yeast infection failed outpatient treatment with Macrobid and Diflucan.Received 500 mL Plasma-Lyte in ED. No documented history of Pseudomonas on prior cultures, but with history of DM. -H/o chronic constipation resulting to emesis now and then.No sexual history, consider associated possible bacterial vaginosis. - CBC leukocytosis 11.43->N, Cr 2.26->2.37 , BUN 38, CBC, BMP am - UA suggestive of infection - culture shows klebsiella. - CTAP shows no pyelonephritis, known incidental finding of Right adrenal myelolipoma measuring roughly 6.1 cm - Zofran prn N/V - Acetaminophen prn fever/pain - Changed Cefepime to Ceftriaxone for UTI and continue Fluconazole, Nystatin powder topical for vaginal candidiasis. - No sexual history. Possible associated bacterial vaginosis. #KHANG/CKD In setting of known UTI and CKD, also in setting of recent vomiting. Baseline Cr 1.3-1.6. - Cr 2.26->2.37 BUN 48 - BMP am - UA suggestive of infection - tx as above - Bladder scan prn - Pt is concerned with holding HCTZ and spironolactone. If Cr worsened in am, will consider adjusting the dose. - Consulted Nephrology- Agree with holding torsemide and Aldactone but they will decide on daily basis. - Avoid contrast and NSAIDS. - IV fluids plasmalyte #Elevated troponin Pt w/ h/o NSTEMI, "FL x 2"; no current chest pain. - Troponin 25.8, pending repeat - EKG NSR, without ischemic changes - Likely 2/2 demand #N/V/D/Norovirus infection: No abdominal pain but does, PE WNL at admission. Hx of emesis now and then because of chronic constipation. - CBC leukocytosis 11.43-> N - Zofran prn N/V - Maalox prn - Stool studies showed Noro virus infection. Contact precautions ordered. #T2DM with R foot ulcer H/o DMT2, also with known wound/ulcer R foot. At home regimen includes Glargine 80U BID, Aspart SSI. - Glucose at admission 177; Most recent A1C 03/2025 @ 8.1% - SSI with target BSG range 110-150mg/dL, CF 10, carb ratio 5 - Lantus 60 BID - BSG ACHS - For wound -- CT of foot was negative for OM (04/22/2025); Encourage offloading, Aquacel Ag dressing (change M/W/F) - Continue Wound care. #HFpEF- CXR without acute findings, echo (2021) EF 55-60% , Grade 2 abnormal Left ventricular diastolic dysfunction; Follows with cardiology -Imdur, spironolactone, torsemide - Continue - I & O monitoring. -Continuous weight monitoring. #HTN- Carvedilol, Imdur, spironolactone - Continue #HLD- Rosuvastatin - continue #Pain- Hydrocodone-acetaminophen prn; PDMP independently reviewed - continue but with close monitoring of plain tylenol use as well Dispo: Admit, med/tele -- in setting of elevated troponin; downgrade as appropriate VTE Prophylaxis: Heparin refused. Admission and Anticipated Discharge Date Admission Date: May 23, 2025 Supervising Physician Co-Signing Physician Notes I personally examined the patient and verified all tan points of history and exam, discussed case, and agree with decision making with Dr Pink Worried about foot. No other new complaints. Vitals noted, in general she is awake and alert no distress. Breathing unlabored no accessory muscle use good effort. Right foot dressed. Wound images reviewed. Yesterday she did not allow me to take off dressingbecause of that and because she will be being seen by podiatry, today I did not attempt. There is no tracking erythema up her leg. Foot woundchronic. Unfortunately with wound evaluation (patient did not allow me to personally evaluate yesterday) it does appear that there is osteomyelitis, and probably some degree of surrounding cellulitisculture shows MSSAcontinue ceftriaxone (suspect polymicrobial, but fortunately no MRSA or Pseudomonas colonized). Podiatry evaluation, may need surgical intervention. AKIAKI, lower and blood pressures, headache, dizziness, and dry mouth all strongly suggest that she is dry. This has frequently been the case when arrived taking care of her. She is allowing nephrology to give Plasma-Lyte. Continue to hold diuretics. Does not appear to have thrushher refractory oral symptoms appear to be due to dry mucosa UTIcontinue antibiotics in the form of Rocephin. sepsis POA - from UTI, foot, ?both. SIRS was WBC and temp. fortunatley improving demand myocardial ischemia - from above, fortunately mild morbid obesity w BMI 48.4 - noted DVT prophylaxisheparin subcu Subjective Patient lying comfortably in bed , resolved headache and dizziness today. Reports emesis now and then ,loose stools resolved. Rigors resolved. Dysuria, Urinary frequency has decreased from before. mouth feels thick and had gum bleed while brushing teeth. Denies CP, palpitations, SOB, cough, abdominal pain, constipation, numbness/tingling, URI symptoms, weakness, syncope, or falls Review of Systems Review of Systems: All other systems were reviewed and negative except as noted in HPI Physical Exam Physical Exam: General: No acute distress, sitting in chair in room B9 and not the hospital bed Skin: Warm and dry Head: Normocephalic, atraumatic Eyes: PERRL, conjunctivae clear, sclera non-icteric ENT: External ear and ear canal without swelling; nose atraumatic; good dentition, tongue normal appearance, pharynx normal Neck: Supple, no LAD Cardio: RRR, murmur auscultated, no G/R, S1 and S2 normal Resp: No respiratory distress, Lungs CTA in all lobes bilaterally, no wheezes, rales, or rhonchi Abdomen: Soft, symmetric, nontender; No masses or hepatosplenomegaly; Bowel sounds normoactive MSK: No deformities; pulses palpable and equal; trace pitting edema BLE, R > L (at patient's baseline), charcot joint in Rt foot. Neuro: Awake, alert; Sensation intact bilaterally; CN grossly intact, neuropathy of rt foot Psych: Appropriate mood and affect; good judgement and insight. Results & Data Results & Data Vital Signs (Past 12 Hours) Vital Signs Temp Pulse Pulse Resp BP Pulse Ox Pulse Ox 05/27/25 11:10 37.0 C 61 18 126/63 98 05/27/25 07:56 60 05/27/25 07:43 37.1 C 63 18 114/82 97 05/27/25 02:48 36.8 C 62 18 126/78 96 05/27/25 01:30 95 O2 Del Method O2 Del Method 05/27/25 11:10 Room Air 05/27/25 07:56 05/27/25 07:43 Room Air 05/27/25 02:48 Room Air 05/27/25 01:30 Room Air Resident Activity Tracking Resident Involvement: Resident Care Provided Care Provided: Adult Hospital Medicine (2) Diabetic ulcer of toe of left foot Diabetes mellitus type: type 2 Non-pressure ulcer stage: with fat layer exposed Qualified Code(s): E11.621 - Type 2 diabetes mellitus with foot ulcer; L97.522 - Non-pressure chronic ulcer of other part of left foot with fat layer exposed (3) CKD (chronic kidney disease) stage 3, GFR 30-59 ml/min Chronic kidney disease stage 3 subtype: stage 3a (GFR 45-59) Qualified Code(s): N18.31 - Chronic kidney disease, stage 3a
--- NOTE | 2025-05-27 13:15 | Billing Data ---
Date of Service May 27, 2025 Coding Level of Care Code 88678 SUB INP/OBS CARE
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
--- NOTE | 2025-05-27 15:44 | XRay Report ---
XR foot RT min 3V routine CLINICAL HISTORY: Diabetic ulcer right foot COMPARISON: 08/04/2023 FINDINGS: Stable pes planus. Stable talar collapse. No acute fracture or dislocation. No evidence of osteomyelitis seen. Stable surgical clips. IMPRESSION: No osteomyelitis seen. ACT 112: Negative or not required by law. Electronically signed by: Oskar Amaya M.D. 05/27/2025 3:42 PM
[2025-05-27] MEDS ORDERED: LIDOCAINE 2% 2 ML VIAL/AMP(20MG/ML) INFIL ONE (16:32)
[2025-05-27] MEDS ORDERED: PROPOFOL IV EMULSION 10 MG/ML 20 ML VIAL IV ONE (16:32)
[2025-05-27] MEDS ORDERED: MIDAZOLAM HCL 1 MG/ML 2ML VIAL ONE (16:32)
[2025-05-27] MEDS ORDERED: ONDANSETRON INJ 2 MG/ML 2 ML VIAL ONE (16:32)
[2025-05-27] MEDS: LANTUS PER UNIT CHARGE SQ SCH (20:20)
[2025-05-28 07:05] LABS: Anion Gap 9.0 (3-11); Blood Urea Nitrogen 34.0 mg/dl (6-23); Calcium 8.9 mg/dl (8.6-10.3); Carbon Dioxide 23.0 mmol/L (21-32); Chloride 106.0 mmol/L (98-107); Creatinine Clr Calc Pharmacy 34.7 ml/min; Potassium 3.9 mmol/L (3.5-5.1); Sodium 138.0 mmol/L (136-145)
--- NOTE | 2025-05-28 11:14 | Nephrology Progress Note ---
Date of Service May 28, 2025 Assessment & Plan Admission and Anticipated Discharge Date Admission Date: May 23, 2025 Subjective Assessment & Plan (1) KHANG (acute kidney injury): Patient with KHANG on CKD due to ischemic ATN in setting Norovirus and infected right foot wound. Cr was 2.2 then down to 2 but overnight went up again to 2.41 and now slowly drifting down. Agree with holding torsemide and Aldactone for now but will decide on daily basis. Likely start torsemide from tomorrow. As of now no resp distress and on RA. No IV Fluid. Creat today is Slightly lower than yesterday.--so hopefully will come down from now. Given her pre existing CKD and ongoing infection it might be a while before she gets down to baseline. But creat not rising so I dont expect major decline in renal function in coming days. Avoid contrast and NSAIDS. Daily labs. no electrolyte or acid/base disorder in Todays renal panel . Bp is acceptable. (2) Heart failure with preserved ejection fraction: She is currently euvolemic. Holding torsemide and aldactone due to KHANG with acute infection. Low salt diet. (3) Type 2 diabetes mellitus with foot ulcer: Continue cefepime renally dosed. S----Feels better. Almost no diarrhea now. Appetite is still poor. Denies SOB but does have edema in her RT LE. Physical Exam Physical Exam: General exam: Appears comfortable, no acute distress Neck: No JVD, neck is supple Respiratory system: Clear breath sounds bilaterally. Gastrointestinal: Abdomen is soft, non distended, non tender, bowel sounds are present CVS: Regular rate and rhythm. No murmurs, rubs or gallops Musculoskeletal: No joint or muscle tenderness Extremities: right leg edema. Infected right foot wound-bandaged Neuro: Oriented, no tremors, no focal neurological deficits Skin: No rashes Results & Data Vital Signs (Past 12 Hours) Vital Signs Temp Pulse Resp BP BP Pulse Ox Pulse Ox 05/28/25 08:37 37.1 C 60 20 144/62 H 97 05/28/25 02:39 37.1 C 60 18 114/62 98 05/28/25 01:00 95 O2 Del Method O2 Del Method 05/28/25 08:37 Room Air 05/28/25 02:39 Room Air 05/28/25 01:00 Room Air
--- NOTE | 2025-05-28 13:20 | Pharmacy Report ---
Pharmacy Glycemic Short Note 2 - Date of Service May 28, 2025 - Glycemic Short BSG Results (Last 24 hours): 05/27/25 05/27/25 05/28/25 17:44 20:01 06:14 POC Glucose 119 H 145 H Fasting Glucose 153 H 05/28/25 05/28/25 08:14 11:44 POC Glucose 166 H 170 H Fasting Glucose OUTPATIENT ANTIDIABETIC REGIMEN: * Lantus 80 units SQ BID * Novolog 30-40 units SQ TID * HbA1c: 8.1% (04/01/25) ASSESSMENT: 05/28: * Corazon received a total of 43 units of insulin yesterday. (20 units were basal and 23 units were bolus). With the bolus adjustments made yesterday, her blood glucose readings were closer to goal. Will continue the bolus insulin regimen today without change. * Fasting BSG was 166mg/dL this morning. She was made NPO this morning for the OR so reduced her AM Lantus by 50% for today. Will continue Lantus scale at HS. 05/27: * Corazon received a total of 49 units of insulin yesterday (30 units were basal and 19 units were bolus). BSGs were [phone]/dL. * Fasting BSG this morning was 139mg/dL. Lantus was decreased to 20 units QAM and Lantus scale at HS also reduced (now 0, 10 or 20 units depending on BSG) since BSGs have been below goal in the evening. * Will trial tightening bolus insulin parameters at breakfast and then loosening the rest of the day also as lunch readings have been above goal and readings in the evening have been below goal. 05/26: * Corazon received a total of 89 units of insulin yesterday (50 units were basal and 39 units were bolus). BSGs were [phone]/dL * Fasting BSG was 162mg/dL this morning. BID Lantus scale was decreased so that she will now receive 0,30, or 50 units depending on BSG as she has had some blood glucose readings that have been below goal in the evenings. * Correction factor was loosened yesterday. Will continue current bolus insulin regimen without change for now. 05/24 * Ms Shea is a 60yo diabetic F admitted with UTI/KHANG and N/V/D for the past 3-4 days. * Insulin orders initiated conservatively on admission. BSGs have been above goal, so orders have been adjusted today. * Continue to titrate Lantus cautiously in the setting of KHANG and decreased PO intake. * Pharmacy will continue to follow and adjust regimen as indicated. PLAN FOR INPATIENT GLYCEMIC CONTROL: * Hold outpatient oral diabetes medications * Basal insulin * Lantus 10 units SQ x 1 today and Lantus scale SQ (0, 10 or 20 units--see EMR for details) at HS * Bolus insulin * NovoLog per scale ACHS or Q6hrs while NPO * Goal Range: Low 120 mg/dL - High 160 mg/dL * Breakfast: -Correction Factor: 15 mg/dL/unit -Nutritional / Prandial insulin per carb ratio of 1 unit per 3 grams CHO consumed * Lunch, dinner, HS -Correction Factor: 20 mg/dL/unit -Nutritional / Prandial insulin per carb ratio of 1 unit per 7 grams CHO consumed
[2025-05-28] MEDS: LANTUS PER UNIT CHARGE SC ONE (13:34)
--- NOTE | 2025-05-28 14:28 | Hospitalist Progress Note ---
Date of Service May 28, 2025 Assessment & Plan (1) UTI (urinary tract infection): (2) Diabetic ulcer of toe of left foot: (3) CKD (chronic kidney disease) stage 3, GFR 30-59 ml/min: (4) Heart failure with preserved ejection fraction: Plan 60-year-old female PMHx T2DM, HLD, HTN, HFpEF, CKD stage III, anxiety and depression, hypothyroidism, and known UTI presenting for vomiting and diarrhea x 3 to 4 days [employer] and ongoing dysuria, frequency of urine since 2 weeks. Currently being managed for Macrobid treatment failure. #UTI: -Known UTI a/w yeast infection failed outpatient treatment with Macrobid and Diflucan.Received 500 mL Plasma-Lyte in ED. No documented history of Pseudomonas on prior cultures, but with history of DM. -H/o chronic constipation resulting to emesis now and then.No sexual history, consider associated possible bacterial vaginosis. - CBC leukocytosis 11.43->N, Cr 2.26->2.37 , BUN 38, CBC, BMP am - UA suggestive of infection - culture shows klebsiella. - CTAP shows no pyelonephritis, known incidental finding of Right adrenal myelolipoma measuring roughly 6.1 cm - Zofran prn N/V - Acetaminophen prn fever/pain - Changed Cefepime to Ceftriaxone for UTI and continue Fluconazole, Nystatin powder topical for vaginal candidiasis. - #KHANG/CKD In setting of known UTI and CKD, also in setting of recent vomiting. Baseline Cr 1.3-1.6. - Cr 2.26->2.31 BUN 34- BMP am - UA suggestive of infection - tx as above - Bladder scan prn - Pt is concerned with holding HCTZ and spironolactone. If Cr worsened in am, will consider adjusting the dose. - Consulted Nephrology- Agree with holding torsemide and Aldactone but they will decide on daily basis. - Avoid contrast and NSAIDS. - No IV fluid today. #Elevated troponin Pt w/ h/o NSTEMI, "NM x 2"; no current chest pain. - Troponin 25.8, pending repeat - EKG NSR, without ischemic changes - Likely 2/2 demand #N/V/D/Norovirus infection: No abdominal pain but does, PE WNL at admission. Hx of emesis now and then because of chronic constipation. - CBC leukocytosis 11.43-> N - Zofran prn N/V - Maalox prn - Stool studies showed Noro virus infection. Contact precautions ordered. #T2DM with R foot ulcer H/o DMT2, also with known wound/ulcer R foot. At home regimen includes Glargine 80U BID, Aspart SSI. - Glucose at admission 177; Most recent A1C 03/2025 @ 8.1% - SSI with target BSG range 110-150mg/dL, CF 10, carb ratio 5 - Lantus 60 BID - BSG ACHS - For wound -- CT of foot was negative for OM (04/22/2025); Encourage offloading, Aquacel Ag dressing (change M/W/F) - Continue Wound care. - Xray foot shows no osteomyelitis but scheduled for debridement with podiatry today. #HFpEF- CXR without acute findings, echo (2021) EF 55-60% , Grade 2 abnormal Left ventricular diastolic dysfunction; Follows with cardiology -Imdur, spironolactone, torsemide - Continue - I & O monitoring. -Continuous weight monitoring. #HTN- Carvedilol, Imdur, spironolactone - Continue #HLD- Rosuvastatin - continue #Pain- Hydrocodone-acetaminophen prn; PDMP independently reviewed - continue but with close monitoring of plain tylenol use as well Dispo: Admit, med/tele -- in setting of elevated troponin; downgrade as appropriate VTE Prophylaxis: Heparin refused. Admission and Anticipated Discharge Date Admission Date: May 23, 2025 Supervising Physician Co-Signing Physician Notes I personally examined the patient and verified all tan points of history and exam, discussed case, and agree with decision making with Dr Pink discussed surgery, discussed plans. Vitals noted, in general she is awake and alert pleasant no distress. HEENT normocephalic atraumatic mucous membranes moist. Breathing unlabored no accessory muscle use good effort. Foot dressed after surgery. No tracking erythema. Foot woundchronic. Osteomyelitis and a degree of surrounding cellulitis she believes it is getting better on ceftriaxone, surface cultures showed MSSAseems to be improvingcontinue for now. Discussed with osteomyelitis, we will likely need to look at a prolonged course of IV antibiotics. Will await surgical cultures before determining optimal antibiotic and durationonce surgical cultures are back, will likely ask infectious disease for thoughtsparticularly for optimization given the very tenuous situation with her foot. AKIAKI, lower and blood pressures, headache, dizziness, and dry mouth all strongly suggest that she is dry. This has frequently been the case when arrived taking care of her. She declines further IV fluids at this time, but I did encourage p.o. intake.. Continue to hold diuretics. Does not appear to have thrushher refractory oral symptoms appear to be due to dry mucosaLooking a bit better today UTIcontinue antibiotics in the form of Rocephin. sepsis POA - from UTI, foot, ?both. SIRS was WBC and temp. fortunately im proving demand myocardial ischemia - from above, fortunately mild morbid obesity w BMI 48.4 - noted DVT prophylaxisheparin subcu Subjective Patient lying comfortably in bed , slight lightheadedness still. Reports emesis now and then ,loose stools resolved. Rigors resolved. Dysuria, Urinary frequency has decreased from before. mouth feels thick and had gum bleed while brushing teeth. Denies CP, palpitations, SOB, cough, abdominal pain, constipation, numbness/tingling, URI symptoms, weakness, syncope, or falls Review of Systems Review of Systems: All other systems were reviewed and negative except as noted in HPI Physical Exam Physical Exam: General: No acute distress, sitting in chair in room B9 and not the hospital bed Skin: Warm and dry Head: Normocephalic, atraumatic Eyes: PERRL, conjunctivae clear, sclera non-icteric ENT: External ear and ear canal without swelling; nose atraumatic; good dentition, tongue normal appearance, pharynx normal Neck: Supple, no LAD Cardio: RRR, murmur auscultated, no G/R, S1 and S2 normal Resp: No respiratory distress, Lungs CTA in all lobes bilaterally, no wheezes, rales, or rhonchi Abdomen: Soft, symmetric, nontender; No masses or hepatosplenomegaly; Bowel sounds normoactive MSK: No deformities; pulses palpable and equal; trace pitting edema BLE, R > L (at patient's baseline), charcot joint in Rt foot. Neuro: Awake, alert; Sensation intact bilaterally; CN grossly intact, neuropathy of rt foot Psych: Appropriate mood and affect; good judgement and insight. Results & Data Results & Data Vital Signs (Past 12 Hours) Vital Signs Temp Pulse Resp BP BP Pulse Ox O2 Del Method 05/28/25 11:58 36.5 C 59 L 16 118/44 L 97 Room Air 05/28/25 08:37 37.1 C 60 20 144/62 H 97 Room Air 05/28/25 02:39 37.1 C 60 18 114/62 98 Room Air Resident Activity Tracking Resident Involvement: Resident Care Provided Care Provided: Adult Hospital Medicine (2) Diabetic ulcer of toe of left foot Diabetes mellitus type: type 2 Non-pressure ulcer stage: with fat layer exposed Qualified Code(s): E11.621 - Type 2 diabetes mellitus with foot ulcer; L97.522 - Non-pressure chronic ulcer of other part of left foot with fat layer exposed (3) CKD (chronic kidney disease) stage 3, GFR 30-59 ml/min Chronic kidney disease stage 3 subtype: stage 3a (GFR 45-59) Qualified Code(s): N18.31 - Chronic kidney disease, stage 3a
--- NOTE | 2025-05-28 16:24 | History & Physical Bridge Note ---
Date of Service May 28, 2025 History & Physical Bridge Note I have examined the patient, reviewed the History & Physical and in the interval since the performance of the History & Physical I have noted the following changes of clinical significance: no changes noted
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
--- NOTE | 2025-05-28 16:39 | Communication Note ---
Date of Service: May 28, 2025 Dr Romero not requesting involvement of anesthesia services. Case will be strict local.
--- NOTE | 2025-05-28 16:45 | Podiatry Progress Note ---
Date of Service May 28, 2025 Assessment & Plan (1) Diabetic ulcer of right foot associated with type 2 diabetes mellitus, with fat layer exposed: (2) Diabetic peripheral neuropathy associated with type 2 diabetes mellitus: (3) Type 2 diabetes mellitus with Charcot's joint of right foot: (4) Type 2 diabetes mellitus with foot ulcer: Plan Plan for incision and drainage with debridement of all necrotic soft tissue of the right foot and bone biopsy as needed 05/28/2023. - Plain film radiographs reviewed with no radiographic signs of osteomyelitis to the right foot. - Surgical plan discussed with patient at length and all questions were answered. Written informed consent is reviewed including risks, benefits, alternatives and risks to the alternatives to the procedure. Written consent is signed and witnessed. Right lower extremity marked for I&D. Admission and Anticipated Discharge Date Admission Date: May 23, 2025 Subjective Patient seen resting comfortably in hospital bed. Planning on I&D of the right foot under local anesthesia with bone biopsy as needed later today. We discussed MRI however patient would like to forego and is concerned about retained metal clips in the ankle. If I thought there was any significant diagnostic benefit of the MRI versus a bone biopsy we would move forward however as we planned incision and drainage for this afternoon I will evaluate for any clinical signs of osteomyelitis intraoperatively collect a bone biopsy as needed. In addition there is no reasonable option for further remodeling of the foot from my standpoint. If patient does not respond well to antibiotic therapy and wound care would recommend below the knee amputation. Patient voices understanding and is in agreement. All questions answered. Review of Systems Review of Systems: Denies nausea, vomiting, fever, chills, shortness of breath, chest pain. All other systems reviewed and negative unless otherwise stated in HPI. Physical Exam Physical Exam: Const: Appears well developed and well nourished. No signs of acute distress present. CV: Extremities: No cyanosis or edema. Capillary refill time is less than 2 seconds all digits of the bilateral foot. Posterior tibial and dorsalis pedis pulses are palpable bilateral. Neuro: Loss of protective sensation bilateral foot Psych: Mood/Affect: Mood is normal. Affect is normal. Cognition: Orientation is intact to person, place and time. Focused lower extremity musculoskeletal exam: Leg: No pain with compression of the calf muscle. Ankles: Normal to inspection and palpation. No swelling bilaterally. No tend erness bilaterally. Motor strength is intact. Range of motion pain-free and unlimited. Feet: Deformity of the right foot secondary to Charcot neuroarthropathy with vinay dence of significant surgical intervention and skin grafting extending around the foot medially. Patient has a diabetic ulceration subfifth metatarsal base laterally extending into subcutaneous tissue with purulent drainage upon compression of surrounding tissues. Erythema and edema extending to the level of the right ankle. No notable lymphangitis. Wound does not probe to any identifiable bone at this time. Hemorrhagic blister to the medial aspect of the left hallux without signs of local soft tissue infection. Results & Data Results & Data Vital Signs (Past 12 Hours) Vital Signs Temp Pulse Resp BP Pulse Ox O2 Del Method 05/28/25 16:21 37.3 C 58 L 20 118/49 L 97 Room Air 05/28/25 11:58 36.5 C 59 L 16 118/44 L 97 Room Air 05/28/25 08:37 37.1 C 60 20 144/62 H 97 Room Air 05/28/25 08:00 Room Air Laboratory Results ESR 79 CRP 10.42 Diagnostic Findings XR foot RT min 3V routine CLINICAL HISTORY: Diabetic ulcer right foot COMPARISON: 08/04/2023 FINDINGS: Stable pes planus. Stable talar collapse. No acute fracture or dislocation. No evidence of osteomyelitis seen. Stable surgical clips. IMPRESSION: No osteomyelitis seen. Coding Level of Care Code 39595 SUB INP/OBS CARE 2MIN Diagnoses Diabetic ulcer of right midfoot associated with type 2 diabetes mellitus, with fat layer exposed E11.621; L97.412 Diabetic foot ulcer location: midfoot Diabetic peripheral neuropathy associated with type 2 diabetes mellitus E11.42 Type 2 diabetes mellitus with Charcot's joint of right foot E11.610 Type 2 diabetes mellitus with foot ulcer E11.621; L97.509 (1) Diabetic ulcer of right foot associated with type 2 diabetes mellitus, with fat layer exposed Diabetic foot ulcer location: midfoot Qualified Code(s): E11.621 - Type 2 diabetes mellitus with foot ulcer; L97.412 - Non-pressure chronic ulcer of right heel and midfoot with fat layer exposed
--- NOTE | 2025-05-28 17:41 | Post Operative Brief Note ---
PG Immediate Post Op with CF Date of Surgery May 28, 2025 Pre & Post Diagnosis Operation Date: 05/28/25 08:20 Pre-Op Diagnosis: (1) Diabetic ulcer of right foot associated with type 2 diabetes mellitus, with fat layer exposed: Post-Op Diagnosis: (1) Diabetic ulcer of right foot associated with type 2 diabetes mellitus, with fat layer exposed: I identified the patient and participated in the time-out.: Yes Procedure Operation Date: 05/28/25 08:20 Actual Procedures p Right Foot Incision and Drainage(Right) - Benjamin Romero DPM Surgeon Benjamin Romero DPM Scientific Recruiter none Estimated Blood Loss 5 Findings See Below Bone of 5th met exposed in wound bed Specimens Specimen Description: Culture 1. Soft Tissue Culture Right Foot #1 2. Soft Tissue Culture Right Foot #2 3. Right Foot 5th Metatarsal Bone Biopsy for Culture Permanent A. Right Foot 5th metatarsal bone biopsy Complications none
--- NOTE | 2025-05-28 17:58 | Operative Report ---
CHRISTIANO Post Operative Report Pre & Post Diagnosis Operation Date: 05/28/25 08:20 Pre-Op Diagnosis: (1) Diabetic ulcer of right foot associated with type 2 diabetes mellitus, with fat layer exposed: Post-Op Diagnosis: (1) Diabetic ulcer of right foot associated with type 2 diabetes mellitus, with fat layer exposed: I identified the patient and participated in the time-out.: Yes Procedure Operation Date: 05/28/25 08:20 Actual Procedures p Right Foot Incision and Drainage(Right) - Benjamin Romero DPM Surgeon Benjamin Romero DPM Apparatus Cleaner none Estimated Blood Loss 5 Findings See Below And exposed bone in the dorsal lateral aspect of the fifth metatarsal shaft noted within wound bed following debridement of necrotic tissue. Specimens Bone for culture fifth metatarsal Bone for pathology fifth metatarsal Soft tissue for culture right foot Culture swab right foot Drains Half-inch iodoform packing gauze placed within wound bed Complications None Indications Necrotic diabetic wound with concern for underlying osteomyelitis Description of Procedure Patient is brought to the operating room and left on the hospital litter for the procedure. Timeout was held confirming correct patient, side, site, procedure with all necessary parties confirming. The right lower extremity is scrubbed prepped and draped to the level of the ankle in usual aseptic fashion. Patient receiving IV antibiotics scheduled on the floor. Attention was directed the plantar aspect and the lateral aspect of the right foot where diabetic ulceration is noted with necrotic tissue to the wound bed probing to soft tissue endpoint. On evaluation of the wound the lateral aspect of the right foot it communicates with the plantar wound and also probes to the dorsal lateral cortical bone of the fifth metatarsal. Necrotic tissue is excised with a rongeur and 15 blade and sharp excisional debridement. The bridge of cutaneous tissue between the plantar and lateral wound which communicates in the subcutaneous tissue with necrotic subcutaneous tissue is excised to connect the 2 wounds with electrocautery. Any necrotic tissue to the wound borders and wound bed is excised sharply with rongeur and 15 blade to the level of healthy bleeding tissue. The portion of exposed bone which is quite small measuring 0.3 x 0.4 mm is debrided with a rongeur and the debrided bone is sent for pathologic analysis and a piece of bone is also sent for culture and sensitivity. The excised cutaneous bridge with underlying necrotic tissue was sent as a soft tissue culture of the right foot and a culture swab was collected from the wound bed. Wound is flushed with 3 L of normal sterile saline and pulse lavage. Wound bed is evaluated and noted to be free of any frankly necrotic appearing soft tissue and bone. Wound is packed with half-inch iodoform packing gauze dressed with 4 x 4 fluff gauze ABD pad Justyna and lightly applied Sameer bandage to hold dressings in place. Patient tolerated procedure well without complaint of pain or discomfort throughout. She did not require local or general anesthesia due to dense peripheral neuropathy secondary to type 2 diabetes. She is transferred to r ecovery room with vascular status intact to the right foot vital signs stable. She is instructed to remain nonweightbearing to the right foot until further notice. I attest to the content of the Intraoperative Record and any orders documented therein. Any exceptions are noted below.
--- NOTE | 2025-05-28 19:08 | Billing Data ---
Date of Service May 28, 2025 Coding Level of Care Code 10077 SUB INP/OBS CARE MIN
[2025-05-28] MEDS: BUPIVACAINE 0.5 % 5 MG/1 ML MPF 30ML VIAL ONE (21:24)
[2025-05-29 06:22] LABS: Hematocrit (blood only) 29.8 % (37.0-47.0); Hemoglobin 9.9 g/dl (12.0-16.0); Mean Corpuscular Hemoglobin 27.1 pg (25.0-34.0); Mean Corpuscular Volume 81.6 fL (80.0-100.0); Platelet Count 349 K/uL (130-400); RDW Standard Deviation 46.5 fL (36.4-46.3); Red Blood Count 3.65 M/uL (4.20-5.40); White Blood Count 7.46 K/ul (4.8-10.8)
[2025-05-29 06:43] LABS: Anion Gap 10.0 (3-11); Blood Urea Nitrogen 30.0 mg/dl (6-23); Calcium 8.7 mg/dl (8.6-10.3); Carbon Dioxide 23.0 mmol/L (21-32); Chloride 106.0 mmol/L (98-107); Creatinine Clr Calc Pharmacy 42.2 ml/min; Potassium 3.7 mmol/L (3.5-5.1); Sodium 139.0 mmol/L (136-145)
[2025-05-29] MEDS: LANTUS PER UNIT CHARGE SQ SCH (09:23)
--- NOTE | 2025-05-29 11:08 | Nephrology Progress Note ---
Date of Service May 29, 2025 Assessment & Plan Admission and Anticipated Discharge Date Admission Date: May 23, 2025 Subjective Assessment & Plan (1) KHANG (acute kidney injury): Patient with KHANG on CKD due to ischemic ATN in setting Norovirus and infected right foot wound. Cr was 2.2 then down to 2 but overnight went up again to 2.41 and now slowly drifting down. Agree with holding torsemide and Aldactone for now but will decide on daily basis. Will Likely start torsemide and aldactone from tomorrow at same dose as at home. iAs of now no resp distress and on RA. No IV Fluid. Creat today is even lower than yesterday att 1.9 and her baseline is 1.6--so hopefully will come down from now. Given her pre existing CKD and ongoing infection it can take a while before she gets down to baseline. But creat is slowly dropping so I dont expect major decline in renal function in coming days. Avoid contrast and NSAIDS. Daily labs. no electrolyte or acid/base disorder in Today renal panel . Bp is acceptable. (2) Heart failure with preserved ejection fraction: She is currently euvolemic. Holding torsemide and aldactone due to KHANG with acute infection. Low salt diet. (3) Type 2 diabetes mellitus with foot ulcer: Continue cefepime renally dosed. S----Feels better. Almost no diarrhea now. Appetite is still poor. Denies SOB but does have edema in her RT LE. Physical Exam Physical Exam: General exam: Appears comfortable, no acute distress Neck: No JVD, neck is supple Respiratory system: Clear breath sounds bilaterally. Gastrointestinal: Abdomen is soft, non distended, non tender, bowel sounds are present CVS: Regular rate and rhythm. No murmurs, rubs or gallops Musculoskeletal: No joint or muscle tenderness Extremities: right leg edema. Infected right foot wound-bandaged Neuro: Oriented, no tremors, no focal neurological deficits Skin: No rashes Results & Data Vital Signs (Past 12 Hours) Vital Signs Temp Pulse Resp BP Pulse Ox O2 Del Method 05/29/25 08:00 36.8 C 61 16 134/55 L 97 Room Air 05/29/25 02:56 36.4 C 54 L 18 104/63 98 Room Air
--- NOTE | 2025-05-29 11:55 | Hospitalist Progress Note ---
Date of Service May 29, 2025 Assessment & Plan (1) UTI (urinary tract infection): (2) Diabetic ulcer of toe of left foot: (3) CKD (chronic kidney disease) stage 3, GFR 30-59 ml/min: (4) Heart failure with preserved ejection fraction: Plan 60-year-old female PMHx T2DM, HLD, HTN, HFpEF, CKD stage III, anxiety and depression, hypothyroidism, and known UTI presenting for vomiting and diarrhea x 3 to 4 days [employer]OP[employer] and ongoing dysuria, frequency of urine since 2 weeks. Currently being managed for Macrobid treatment failure. #UTI/SIRS: -Known UTI a/w yeast infection failed outpatient treatment with Macrobid and Diflucan.Received 500 mL Plasma-Lyte in ED. No documented history of Pseudomonas on prior cultures, but with history of DM. -H/o chronic constipation resulting to emesis now and then.No sexual history, consider associated possible bacterial vaginosis. - CBC leukocytosis 11.43->N, Cr 2.26->2.37 , BUN 38, CBC, BMP am - UA suggestive of infection - culture shows klebsiella. - CTAP shows no pyelonephritis, known incidental finding of Right adrenal myelolipoma measuring roughly 6.1 cm - Zofran prn N/V - Acetaminophen prn fever/pain - Changed Cefepime to Ceftriaxone for UTI and continue Fluconazole, Nystatin powder topical for vaginal candidiasis. - #KHANG/CKD In setting of known UTI and CKD, also in setting of recent vomiting. Baseline Cr 1.3-1.6. - Cr 2.26->2.31 BUN 34- BMP am - UA suggestive of infection - tx as above - Bladder scan prn - Pt is concerned with holding HCTZ and spironolactone. If Cr worsened in am, will consider adjusting the dose. - Consulted Nephrology- Agree with holding torsemide and Aldactone but they will decide on daily basis. - Avoid contrast and NSAIDS. - No IV fluid today. #Elevated troponin Pt w/ h/o NSTEMI, "MA x 2"; no current chest pain. - Troponin 25.8, pending repeat - EKG NSR, without ischemic changes - Likely 2/2 demand #N/V/D/Norovirus infection: No abdominal pain but does, PE WNL at admission. Hx of emesis now and then because of chronic constipation. - CBC leukocytosis 11.43-> N - Zofran prn N/V - Maalox prn - Stool studies showed Noro virus infection. Contact precautions ordered. #T2DM with R foot ulcer H/o DMT2, also with known wound/ulcer R foot. At home regimen includes Glargine 80U BID, Aspart SSI. - Glucose at admission 177; Most recent A1C 03/2025 @ 8.1% - SSI with target BSG range 110-150mg/dL, CF 10, carb ratio 5 - Lantus 60 BID - BSG ACHS - For wound -- CT of foot was negative for OM (04/22/2025); Encourage offloading, Aquacel Ag dressing (change M/W/F) - Continue Wound care. - Xray foot shows no osteomyelitis but debridement performed with bone culture sent with podiatry yesterday with clinical findings of possible osteomyelitis. #HFpEF- CXR without acute findings, echo (2021) EF 55-60% , Grade 2 abnormal Left ventricular diastolic dysfunction; Follows with cardiology -Imdur, spironolactone, torsemide - Continue - I & O monitoring. -Continuous weight monitoring. #HTN- Carvedilol, Imdur, spironolactone - Continue #HLD- Rosuvastatin - continue #Pain- Hydrocodone-acetaminophen prn; PDMP independently reviewed - continue but with close monitoring of plain tylenol use as well Dispo: Admit, med/tele -- in setting of elevated troponin; downgrade as appropriate VTE Prophylaxis: Heparin refused. Admission and Anticipated Discharge Date Admission Date: May 23, 2025 Supervising Physician Co-Signing Physician Notes I personally examined the patient and verified all tan points of history and exam, discussed case, and agree with decision making with Dr Pink Feeling okay. No new problems, no new complaints. Maybe feels like legs are a little bit more swollen. No new breathing issues. Vitals noted, in general she is awake and alert pleasant no distress. HEENT normocephalic atraumatic mucous membranes moist. Breathing unlabored no accessory muscle use good effort. Foot dressed after surgery. No tracking erythema. Foot woundchronic. Osteomyelitis and a degree of surrounding cellulitisshe believes it is getting better on ceftriaxone, surface cultures showed MSSAseems to be improvingcontinue for now. Discussed with osteomyelitis, we will likely need to look at a prolonged course of IV antibiotics. Will await surgical cultures before determining optimal antibiotic and durationonce surgical cultures are back, will likely ask infectious disease for thoughtsparticularly for optimization given the very tenuous situation with her foot. Stay the course for today AKIAKI, lower and blood pressures, headache, dizziness, and dry mouth all strongly suggest that she is dry. This has frequently been the case when arrived taking care of her. She declines further IV fluids at this time, but I did encourage p.o. intake.. Continue to hold diuretics. tried to educate further on the difference between CHF and venous stasis. Does not appear to have thrushher refractory oral symptoms appear to be due to dry mucosa UTIcontinue antibiotics in the form of Rocephin. sepsis POA - from UTI, foot, ?both. SIRS was WBC and temp. fortunately improving demand myocardial ischemia - from above, fortunately mild morbid obesity w BMI 48.4 - noted DVT prophylaxisheparin subcu Subjective Patient lying comfortably in bed, slight light headedness still. Reports emesis now and then, loose stools resolved. Rigors resolved. Dysuria, Urinary frequency has resolved. Gum soreness has improved. Denies CP, palpitations, SOB, cough, abdominal pain, constipation, numbness/tingling, URI symptoms, weakness, syncope, or falls Review of Systems Review of Systems: All other systems were reviewed and negative except as noted in HPI Physical Exam Physical Exam: General: No acute distress, sitting in chair in room B9 and not the hospital bed Skin: Warm and dry Head: Normocephalic, atraumatic Eyes: PERRL, conjunctivae clear, sclera non-icteric Neck: Supple, no LAD Cardio: RRR, murmur auscultated, no G/R, S1 and S2 normal Resp: No respiratory distress, Lungs CTA in all lobes bilaterally, no wheezes, rales, or rhonchi Abdomen: Soft, symmetric, nontender; No masses or hepatosplenomegaly; Bowel sounds normoactive MSK: No deformities; pulses palpable and equal; trace pitting edema BLE, R > L (at patient's baseline), charcot joint in Rt foot. Neuro: Awake, alert; Sensation intact bilaterally; CN grossly intact, neuropathy of rt foot Psych: Appropriate mood and affect; good judgement and insight. Results & Data Results & Data Vital Signs (Past 12 Hours) Vital Signs Temp Pulse Resp BP Pulse Ox O2 Del Method 05/29/25 08:00 Room Air 05/29/25 08:00 36.8 C 61 16 134/55 L 97 Room Air 05/29/25 02:56 36.4 C 54 L 18 104/63 98 Room Air Resident Activity Tracking Resident Involvement: Resident Care Provided Care Provided: Adult Hospital Medicine (2) Diabetic ulcer of toe of left foot Diabetes mellitus type: type 2 Non-pressure ulcer stage: with fat layer exposed Qualified Code(s): E11.621 - Type 2 diabetes mellitus with foot ulcer; L97.522 - Non-pressure chronic ulcer of other part of left foot with fat layer exposed (3) CKD (chronic kidney disease) stage 3, GFR 30-59 ml/min Chronic kidney disease stage 3 subtype: stage 3a (GFR 45-59) Qualified Code(s): N18.31 - Chronic kidney disease, stage 3a
--- NOTE | 2025-05-29 13:20 | Billing Data ---
Date of Service May 29, 2025 Coding Level of Care Code 52153 SUB INP/OBS CARE MIN
--- NOTE | 2025-05-29 15:34 | Podiatry Progress Note ---
Date of Service May 29, 2025 Assessment & Plan (1) Acute osteomyelitis of metatarsal bone of right foot: (2) Diabetic ulcer of right foot associated with type 2 diabetes mellitus, with bone involvement without evidence of necrosis: (3) Type 2 diabetes mellitus with Charcot's joint of right foot: (4) Diabetic peripheral neuropathy associated with type 2 diabetes mellitus: Plan Postop day 1 status post I&D and debridement of right foot wound with bone biopsy of the fifth metatarsal. - Bone for pathology fifth metatarsal 05/28/2025: Pending - Bone for culture 05/28/2025: Preliminary result growing Staph aureus - Surgical dressing changed. Wound flushed with normal sterile saline dried and repacked with half-inch iodoform packing gauze 1 by 4 x 4 fluff gauze ABD pad x 2 Justyna and a lightly applied Sameer bandage total dressings in place. - Continue nonweightbearing to the right foot Would benefit from discharge to a [facility] facility given nonweightbearing requirement and probable need for continued IV antibiotic therapy for treatment of osteomyelitis of the fifth metatarsal. Follow-up in the wound center with any provider within 2 weeks of discharge. Admission and Anticipated Discharge Date Admission Date: May 23, 2025 Noman Chandra is seen resting comfortably in hospital bed postop day 1 status post incision and drainage and debridement of the right foot wound. Denies pain to the right foot. She has been nonweightbearing since time of surgery. Explained that I recommend continued strict nonweightbearing to the right foot as we have limited surgical options at this point for eradication of osteomyelitis and we are unable to get this wound to heal patient is high risk for limb amputation. She reports excellent understanding of her situation however I am not so sure she will be able to remain strict nonweightbearing. She does have a cam walker in her room and she is encouraged to wear the cam walker anytime the foot may come in contact with the floor. We reviewed preliminary culture results growing Staph aureus and she is informed that pathology is pending. No pain with dressing change. Review of Systems Review of Systems: Denies nausea, vomiting, fever, chills, shortness of breath, chest pain. Reports mild discomfort in the right ankle but no pain to the location of ulceration. Physical Exam Physical Exam: Const: Appears well developed and well nourished. No signs of acute distress present. CV: Extremities: No cyanosis or edema. Capillary refill time is less than 2 seconds all digits of the bilateral foot. Posterior tibial and dorsalis pedis pulses are palpable bilateral. Neuro: Loss of protective sensation bilateral foot Psych: Mood/Affect: Mood is normal. Affect is normal. Cognition: Orientation is intact to person, place and time. Focused lower extremity musculoskeletal exam: Leg: No pain with compression of the calf muscle. Ankles: Normal to inspection and palpation. No swelling bilaterally. No tenderness bilaterally. Motor strength is intact. Range of motion pain-free and unlimited. Feet: Deformity of the right foot secondary to Charcot neuroarthropathy with evidence of significant surgical intervention and myocutaneous grafting extending around the foot medially. Diabetic ulcer subfifth metatarsal base extending laterally around the fifth metatarsal to the dorsal foot with exposed bone dorsal laterally on the proximal third of the fifth metatarsal. Wound bed is relatively healthy in appearance postdebridement. I am unable to express any purulent drainage and there is no purulent drainage to the packing which was removed. I decreased erythema and edema to the foot. No lymphangitis or streaking. No malodor. Hemorrhagic blister to the medial aspect of the left hallux without signs of local soft tissue infection. This area remained stable with no signs of local soft tissue infection. Results & Data Results & Data Vital Signs (Past 12 Hours) Vital Signs Temp Pulse Resp BP Pulse Ox O2 Del Method 05/29/25 14:53 36.8 C 58 L 16 122/68 97 Room Air 05/29/25 12:11 36.7 C 62 16 127/69 97 Room Air 05/29/25 08:00 Room Air 05/29/25 08:00 36.8 C 61 16 134/55 L 97 Room Air Coding Level of Care Code 24604 SUB INP/OBS CARE 2/35MIN Diagnoses Acute osteomyelitis of metatarsal bone of right foot M86.171 Diabetic ulcer of right foot associated with type 2 diabetes mellitus, with bone involvement without evidence of necrosis E11.621; L97.516 Type 2 diabetes mellitus with Charcot's joint of right foot E11.610 Diabetic peripheral neuropathy associated with type 2 diabetes mellitus E11.42
[2025-05-29] MEDS ORDERED: Nursing to Pharmacy Communication SCH (18:30)
[2025-05-29] MEDS: NYSTATIN POWDER 15GM BTL EXT SCH (21:07)
[2025-05-30 07:37] LABS: Anion Gap 10.0 (3-11); Blood Urea Nitrogen 28.0 mg/dl (6-23); Calcium 8.7 mg/dl (8.6-10.3); Carbon Dioxide 21.0 mmol/L (21-32); Chloride 107.0 mmol/L (98-107); Creatinine Clr Calc Pharmacy 43.7 ml/min; Potassium 3.9 mmol/L (3.5-5.1); Sodium 138.0 mmol/L (136-145)
--- NOTE | 2025-05-30 09:34 | Nephrology Progress Note ---
Date of Service May 30, 2025 Assessment & Plan Admission and Anticipated Discharge Date Admission Date: May 23, 2025 Subjective Assessment & Plan (1) KHANG (acute kidney injury): Patient with KHANG on CKD due to ischemic ATN in setting Norovirus and infected right foot wound. Cr was 2.2 then down to 2 but overnight went up again to 2.41 and now slowly drifting down. Agree with holding torsemide and Aldactone for now but will decide on daily basis. Will Likely start torsemide and aldactone from tomorrow at same dose as at home. iAs of now no resp distress and on RA. No IV Fluid. Creat today is even lower than yesterday att 1.8 and her baseline is 1.6--so hopefully will come down from now. Given her pre existing CKD and ongoing infection it can take a while before she gets down to baseline. restart torsemide 20 daily and aldactone 25 daily. was on torsemide 40 daily at home though Avoid contrast and NSAIDS. Daily labs. no electrolyte or acid/base disorder in Today renal panel . Bp is acceptable. (2) Heart failure with preserved ejection fraction: She is currently euvolemic. Holding torsemide and aldactone due to KHANG with acute infection. Low salt diet. (3) Type 2 diabetes mellitus with foot ulcer: Continue cefepime renally dosed. S----Feels better. Almost no diarrhea now. Appetite is still poor. Denies SOB but does have edema in her RT LE. Physical Exam Physical Exam: General exam: Appears comfortable, no acute distress Neck: No JVD, neck is supple Respiratory system: Clear breath sounds bilaterally. Gastrointestinal: Abdomen is soft, non distended, non tender, bowel sounds are present CVS: Regular rate and rhythm. No murmurs, rubs or gallops Musculoskeletal: No joint or muscle tenderness Extremities: right leg edema. Infected right foot wound-bandaged Neuro: Oriented, no tremors, no focal neurological deficits Skin: No rashes Results & Data Vital Signs (Past 12 Hours) Vital Signs Temp Pulse Pulse Resp BP BP Pulse Ox 05/30/25 07:52 36.8 C 55 L 18 121/58 L 97 05/30/25 05:50 48 L 05/30/25 02:46 36.5 C 49 L 18 126/62 97 05/29/25 22:45 36.6 C 56 L 18 107/49 L 97 05/29/25 22:01 54 L O2 Del Method 05/30/25 07:52 Room Air 05/30/25 05:50 05/30/25 02:46 Room Air 05/29/25 22:45 Room Air 05/29/25 22:01
--- NOTE | 2025-05-30 09:57 | Infectious Disease Consult ---
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 Mg Tabcr PO 06/23/25 08:59 90 mg DAILY KENNEDY Administration Nystatin 1 appln 05/29/25 21:00 05/30/25 09:55 Nystatin Powder 15gm Btl EXT 06/28/25 20:59 Not Given BID KENNEDY Nystatin/Triamcinolone Acetonide 1 appln 05/25/25 21:00 05/30/25 09:55 Nystatin/Triamcin Cr 15 Gm Tube EXT 06/24/25 20:59 Not Given BID KENNEDY Ondansetron HCl 4 mg 05/24/25 00:58 05/26/25 17:10 Ondansetron Inj 2 Mg/Ml 2 Ml Vial IV 06/23/25 00:57 4 mg Q6H PRN Administration Nausea Rosuvastatin Calcium 40 mg 05/24/25 21:00 05/29/25 21:07 Rosuvastatin Calcium 20 Mg Tab PO 06/23/25 20:59 40 mg HS KENNEDY Administration (1) Diabetic ulcer of right foot associated with type 2 diabetes mellitus, with bone involvement without evidence of necrosis Diabetic foot ulcer location: midfoot Qualified Code(s): E11.621 - Type 2 diabetes mellitus with foot ulcer; L97.416 - Non-pressure chronic ulcer of right heel and midfoot with bone involvement without evidence of necrosis
[2025-05-30] MEDS: SPIRONOLACTONE 25 MG TAB PO SCH (10:48)
[2025-05-30] MEDS: cefTRIAXone SODIUM 2,000 MG/50 ML BAG IV SCH (10:49)
--- NOTE | 2025-05-30 11:17 | Hospitalist Progress Note ---
Date of Service May 30, 2025 Assessment & Plan (1) UTI (urinary tract infection): (2) Diabetic ulcer of toe of left foot: (3) CKD (chronic kidney disease) stage 3, GFR 30-59 ml/min: (4) Heart failure with preserved ejection fraction: Plan 60-year-old female PMHx T2DM, HLD, HTN, HFpEF, CKD stage III, anxiety and depression, hypothyroidism, and known UTI presenting for vomiting and diarrhea x 3 to 4 days [employer] and ongoing dysuria, frequency of urine since 2 weeks. Currently being managed for Macrobid treatment failure. #T2DM with R foot ulcer/ Osteomyelitis: H/o DMT2, also with known wound/ulcer R foot. At home regimen includes Glargine 80U BID, Aspart SSI. - Glucose at admission 177; Most recent A1C 03/2025 @ 8.1% - SSI with target BSG range 110-150mg/dL, CF 10, carb ratio 5 - Lantus 60 BID - BSG ACHS - For wound -- CT of foot was negative for OM (04/22/2025); Encourage offloading, Aquacel Ag dressing (change M/W/F) - Continue Wound care. - Xray foot shows no osteomyelitis but debridement performed with bone culture sent with podiatry with clinical findings of possible osteomyelitis. - Will continue the Ceftriaxone for osteomyelitis which she already completed her 7 day course for UTI for polymicrobial coverage. - Continue Podiatry consult and plan for 6 weeks treatment with osteomyelitis. #UTI/SIRS a/w vaginal candidiasis: -Known UTI a/w yeast infection failed outpatient treatment with Macrobid and Diflucan. -H/o chronic constipation resulting to emesis now and then.No sexual history, consider associated possible bacterial vaginosis. - CTAP shows no pyelonephritis, known incidental finding of Right adrenal myelolipoma measuring roughly 6.1 cm - Zofran prn N/V - Acetaminophen prn fever/pain - Completed 7 days course of Ceftriaxone for UTI. But will still continue Cef triaxone for Osteomyelitis of RT foot. - Continue Fluconazole, Nystatin powder topical for vaginal candidiasis. #KHANG/CKD In setting of known UTI and CKD, also in setting of recent vomiting. Baseline Cr 1.3-1.6. - Cr 2.26->2.31 BUN 34- BMP am - Bladder scan prn - Pt is concerned with holding HCTZ and spironolactone. If Cr worsened in am, will consider adjusting the dose. - Consulted Nephrology- Continue torsemide 20mg and Aldactone. - Avoid contrast and NSAIDS. - No IV fluid today. #Elevated troponin Pt w/ h/o NSTEMI, "OK x 2"; no current chest pain. - Troponin 25.8, pending repeat - EKG NSR, without ischemic changes - Likely 2/2 demand #N/V/D/Norovirus infection: No abdominal pain but does, PE WNL at admission. Hx of emesis now and then because of chronic constipation. - CBC leukocytosis 11.43-> N - Zofran prn N/V - Maalox prn - Stool studies showed Noro virus infection. Contact precautions ordered. #HFpEF- CXR without acute findings, echo (2021) EF 55-60% , Grade 2 abnormal Left ventricular diastolic dysfunction; Follows with cardiology -Imdur, spironolactone, torsemide - Continue - I & O monitoring. -Continuous weight monitoring. #HTN- Carvedilol, Imdur, spironolactone - Continue #HLD- Rosuvastatin - continue #Pain- Hydrocodone-acetaminophen prn; PDMP independently reviewed - continue but with close monitoring of plain tylenol use as well Dispo: Admit, med/tele -- in setting of elevated troponin; downgrade as appropriate VTE Prophylaxis: Heparin refused. Admission and Anticipated Discharge Date Admission Date: May 23, 2025 Supervising Physician Co-Signing Physician Notes I personally examined the patient and verified all tan points of history and exam, discussed case, and agree with decision making with Dr Pink No new complaints. Discussed next steps.. Vitals noted, in general she is awake and alert pleasant no distress. HEENT normocephalic atraumatic mucous membranes moist. Breathing unlabored no accessory muscle use good effort. Foot dressed after surgery. No tracking erythema. Foot woundchronic. Osteomyelitis and a degree of surrounding cellulitisshe believes it is getting better on ceftriaxone, surface cultures showed MSSAseems to be improvingcontinue for now. Discussed with osteomyelitis, we will likely need to look at a prolonged course of IV antibiotics. Surgical cultures yet to finalize on sensitivities, but anticipate that it will match surface cultures given that the surface cultures were growing 2 different types of staph, as are the surgical cultures. Appreciate ID inputanticipate 6 weeks of antibiotics. Agree with Ancef (unless it is too difficult to get set up for home given that the patient is determined to go homein which case probably we would just continue with ceftriaxone). Discussed with patient strict need for offloading and nonweightbearing, and risk of BKA. AKIAKI, lower and blood pressures, headache, dizziness, and dry mouth all strongly suggest that she was dry. Diuretics have been resumed today. Follow. I do wonder if some of her swelling simply is chronic related to venous stasis, not CHF, but will follow blood pressure and creatinine and if creatinine rises again, obviously can hold diuretics Does not appear to have thrushher refractory oral symptoms appear to have been due to dry mucosa UTI treated adequatelyongoing antibiotics really are directed at the foot infection sepsis POA - from UTI, foot, ?both. SIRS was WBC and temp. fortunately improving demand myocardial ischemia - from above, fortunately mild morbid obesity w BMI 48.4 - noted DVT prophylaxisheparin subcu Subjective Patient sitting comfortably in bed, slight light headedness still. Reports emesis now and then, loose stools resolved. Rigors resolved. Dysuria, Urinary frequency has resolved. Gum soreness has improved. Denies CP, palpitations, SOB, cough, abdominal pain, constipation, numbness/tingling, URI symptoms, weakness, syncope, or falls Review of Systems Review of Systems: All other systems were reviewed and negative except as noted in HPI Physical Exam Physical Exam: General: No acute distress, sitting in chair in room B9 and not the hospital bed Skin: Warm and dry Head: Normocephalic, atraumatic Eyes: PERRL, conjunctivae clear, sclera non-icteric Neck: Supple, no LAD Cardio: RRR, murmur auscultated, no G/R, S1 and S2 normal Resp: No respiratory distress, Lungs CTA in all lobes bilaterally, no wheezes, rales, or rhonchi Abdomen: Soft, symmetric, nontender; No masses or hepatosplenomegaly; Bowel sounds normoactive MSK: No deformities; pulses palpable and equal; trace pitting edema BLE, R > L (at patient's baseline), charcot joint in Rt foot. Neuro: Awake, alert; Sensation intact bilaterally; CN grossly intact, neuropathy of rt foot Psych: Appropriate mood and affect; good judgement and insight. Results & Data Results & Data Vital Signs (Past 12 Hours) Vital Signs Temp Pulse Pulse Resp BP BP Pulse Ox 05/30/25 07:52 36.8 C 55 L 18 121/58 L 97 05/30/25 05:50 48 L 05/30/25 02:46 36.5 C 49 L 18 126/62 97 O2 Del Method 05/30/25 07:52 Room Air 05/30/25 05:50 05/30/25 02:46 Room Air Resident Activity Tracking Resident Involvement: Resident Care Provided Care Provided: Adult Hospital Medicine (2) Diabetic ulcer of toe of left foot Diabetes mellitus type: type 2 Non-pressure ulcer stage: with fat layer exposed Qualified Code(s): E11.621 - Type 2 diabetes mellitus with foot ulcer; L97.522 - Non-pressure chronic ulcer of other part of left foot with fat layer exposed (3) CKD (chronic kidney disease) stage 3, GFR 30-59 ml/min Chronic kidney disease stage 3 subtype: stage 3a (GFR 45-59) Qualified Code(s): N18.31 - Chronic kidney disease, stage 3a
--- NOTE | 2025-05-30 11:35 | Podiatry Progress Note ---
Date of Service May 30, 2025 Assessment & Plan (1) Acute osteomyelitis of metatarsal bone of right foot: (2) Diabetic ulcer of right foot associated with type 2 diabetes mellitus, with bone involvement without evidence of necrosis: (3) Type 2 diabetes mellitus with Charcot's joint of right foot: (4) Diabetic peripheral neuropathy associated with type 2 diabetes mellitus: Plan Postop day 2 status post I&D and debridement of right foot wound with bone biopsy of the fifth metatarsal. - Bone for pathology fifth metatarsal 05/28/2025: Pending - Bone for culture 05/28/2025: Preliminary result growing Staph aureus. Sensitivities pending - Dressing changed. Wound flushed with normal sterile saline dried and repacked with half-inch iodoform packing gauze 1 by 4 x 4 fluff gauze ABD pad x 2 Justyna and a lightly applied Sameer bandage total dressings in place. - Continue nonweightbearing to the right foot Lengthy discussion with patient regarding salvageability of the right lower extremity. Plan for extended course of IV antibiotics for treatment of osteomyelitis of the right foot. She is aware that if infection does not resolve with IV antibiotic therapy and wound care in addition to offloading my recommendation would be for below the knee amputation versus further treatment of the right foot. She is aware of the paramount importance of continued nonweightbearing to the right foot. Would benefit from discharge to a nursing home facility given nonweight bearing requirement and probable need for continued IV antibiotic therapy for treatment of osteomyelitis of the fifth metatarsal. Follow-up in the wound center with any provider within 2 weeks of discharge. Admission and Anticipated Discharge Date Admission Date: May 23, 2025 Subjective Patient seen resting comfortably in hospital bed postop day 2 status post I&D and debridement of right foot wound with bone biopsy. Denies pain in the right foot. Denies nausea vomiting fever chills. Review of Systems Review of Systems: Denies nausea, vomiting, fever, chills, shortness of breath, chest pain. Reports mild discomfort in the right ankle but no pain to the location of ulceration of the right foot. Physical Exam Physical Exam: Const: Appears well developed and well nourished. No signs of acute distress present. CV: Extremities: No cyanosis or edema. Capillary refill time is less than 2 seconds all digits of the bilateral foot. Posterior tibial and dorsalis pedis pulses are palpable bilateral. Neuro: Loss of protective sensation bilateral foot Psych: Mood/Affect: Mood is normal. Affect is normal. Cognition: Orientation is intact to person, place and time. Focused lower extremity musculoskeletal exam: Leg: No pain with compression of the calf muscle. Ankles: Normal to inspection and palpation. No swelling bilaterally. No tenderness bilaterally. Motor strength is intact. Range of motion pain-free and unlimited. Feet: Deformity of the right foot secondary to Charcot neuroarthropathy with evidence of significant surgical intervention and myocutaneous grafting extending around the foot medially. Diabetic ulcer subfifth metatarsal base extending laterally around the fifth metatarsal to the dorsal foot with exposed bone dorsal laterally on the proximal third of the fifth metatarsal. Wound bed is relatively healthy in appearance postdebridement. I am unable to express any purulent drainage and there is no purulent drainage to the packing which was removed. I decreased erythema and edema to the foot. No lymphangitis or streaking. No malodor. Hemorrhagic blister to the medial aspect of the left hallux without signs of local soft tissue infection. This area remained stable with no signs of local soft tissue infection. Results & Data Results & Data Vital Signs (Past 12 Hours) Vital Signs Temp Pulse Pulse Resp BP BP Pulse Ox 05/30/25 07:52 36.8 C 55 L 18 121/58 L 97 05/30/25 05:50 48 L 05/30/25 02:46 36.5 C 49 L 18 126/62 97 O2 Del Method 05/30/25 07:52 Room Air 05/30/25 05:50 05/30/25 02:46 Room Air Coding Level of Care Code 56250 SUB INP/OBS CARE 2/MIN Diagnoses Acute osteomyelitis of metatarsal bone of right foot M86.171 Diabetic ulcer of right midfoot associated with type 2 diabetes mellitus, with bone involvement without evidence of necrosis E11.621; L97.416 Diabetic foot ulcer location: midfoot Type 2 diabetes mellitus with Charcot's joint of right foot E11.610 Diabetic peripheral neuropathy associated with type 2 diabetes mellitus E11.42 (2) Diabetic ulcer of right foot associated with type 2 diabetes mellitus, with bone involvement without evidence of necrosis Diabetic foot ulcer location: midfoot Qualified Code(s): E11.621 - Type 2 diabetes mellitus with foot ulcer; L97.416 - Non-pressure chronic ulcer of right heel and midfoot with bone involvement without evidence of necrosis
--- NOTE | 2025-05-30 13:10 | Pharmacy Report ---
Pharmacy Glycemic Short Note 2 - Date of Service May 30, 2025 - Glycemic Short BSG Results (Last 24 hours): 05/29/25 05/29/25 05/30/25 16:53 20:07 06:59 POC Glucose 176 H 221 H Fasting Glucose 200 H 05/30/25 05/30/25 08:14 11:49 POC Glucose 207 H 213 H Fasting Glucose OUTPATIENT ANTIDIABETIC REGIMEN: * Lantus 80 units SQ BID * Novolog 30-40 units SQ TID * HbA1c: 8.1% (04/01/25) ASSESSMENT: 05/30: * Corazon received a total of 76 units of insulin yesterday (40 units were basal and 36 units were bolus) BSGs were above goal most of the day. * Fasting BSG was 207mg/dL this morning and continued to rise at lunch. CR tightened for lunch-HS doses and HS Lantus scale increased (will now receive 0, 15 or 25 units depending on BSG) 05/28: * Corazon received a total of 43 units of insulin yesterday. (20 units were basal and 23 units were bolus). With the bolus adjustments made yesterday, her blood glucose readings were closer to goal. Will continue the bolus insulin regimen today without change. * Fasting BSG was 166mg/dL this morning. She was made NPO this morning for the OR so reduced her AM Lantus by 50% for today. Will continue Lantus scale at HS. 05/27: * Corazon received a total of 49 units of insulin yesterday (30 units were basal and 19 units were bolus). BSGs were 086-864-179-107-119mg/dL. * Fasting BSG this morning was 139mg/dL. Lantus was decreased to 20 units QAM and Lantus scale at HS also reduced (now 0, 10 or 20 units depending on BSG) since BSGs have been below goal in the evening. * Will trial tightening bolus insulin parameters at breakfast and then loosening the rest of the day also as lunch readings have been above goal and readings in the evening have been below goal. 05/26: * Corazon received a total of 89 units of insulin yesterday (50 units were basal and 39 units were bolus). BSGs were 659-880-263-121-80mg/dL * Fasting BSG was 162mg/dL this morning. BID Lantus scale was decreased so that she will now receive 0,30, or 50 units depending on BSG as she has had some blood glucose readings that have been below goal in the evenings. * Correction factor was loosened yesterday. Will continue current bolus insulin regimen without change for now. 05/24 * Ms Shea is a 60yo diabetic F admitted with UTI/KHANG and N/V/D for the past 3-4 days. * Insulin orders initiated conservatively on admission. BSGs have been above goal, so orders have been adjusted today. * Continue to titrate Lantus cautiously in the setting of KHANG and decreased PO intake. * Pharmacy will continue to follow and adjust regimen as indicated. PLAN FOR INPATIENT GLYCEMIC CONTROL: * Hold outpatient oral diabetes medications * Basal insulin * Lantus 20 units SQ Q AM and Lantus scale SQ (0, 15 or 25units--see EMR for details) at HS * Bolus insulin * NovoLog per scale ACHS or Q6hrs while NPO * Goal Range: Low 120 mg/dL - High 160 mg/dL * Breakfast: -Correction Factor: 15 mg/dL/unit -Nutritional / Prandial insulin per carb ratio of 1 unit per 3 grams CHO consumed * Lunch, dinner, HS -Correction Factor: 20 mg/dL/unit -Nutritional / Prandial insulin per carb ratio of 1 unit per 6 grams CHO consumed
[2025-05-30] MEDS: TORSEMIDE 20 MG TAB PO SCH (16:51)
--- NOTE | 2025-05-30 17:30 | Billing Data ---
Date of Service May 30, 2025 Coding Level of Care Code 55853 SUB INP/OBS CARE MIN
[2025-05-31 07:18] LABS: Anion Gap 8.0 (3-11); Blood Urea Nitrogen 28.0 mg/dl (6-23); Calcium 9.0 mg/dl (8.6-10.3); Carbon Dioxide 23.0 mmol/L (21-32); Chloride 106.0 mmol/L (98-107); Creatinine Clr Calc Pharmacy 43.2 ml/min; Potassium 3.9 mmol/L (3.5-5.1); Sodium 137.0 mmol/L (136-145)
--- NOTE | 2025-05-31 07:58 | Nephrology Progress Note ---
Date of Service May 31, 2025 Assessment & Plan (1) KHANG (acute kidney injury): Plan: Patient with KHANG on CKD due to ischemic ATN in setting Norovirus and infected right foot wound. Cr peaked at 2.2 but down to 1.8 today -on torsemide 20 mg daily since 05/30 >> ordered but pt not taking -on spironolactone 25 mg daily since 05/30 adn taking continue above diuretic No IV fluids today unless hypotensive -Avoid contrast. -daily bmp (2) Heart failure with preserved ejection fraction: Plan: She is currently euvolemic. GDMT diuretics. Low salt diet. (3) Type 2 diabetes mellitus with foot ulcer: Plan: Continue cefazolin renally dosed. Admission and Anticipated Discharge Date Admission Date: May 23, 2025 Subjective no sob, no n/v; no worsening edema. feels foot healing slowly; not taking torsemide daily but taking spironolactone Review of Systems 2 Review of Systems: All systems reviewed & are unremarkable except as noted in Subjective Physical Exam 2 Constitutional: well developed and well nourished Eyes: EOM intact bilaterally ENMT: Ears: no external ear abnormality Nose: no external nose abnormality Mouth: + dry oral mucous membranes Neck: no nuchal rigidity Respiratory: normal respiratory effort Auscultation: + diminished lung sounds Cardiovascular: Rate/Rhythm: regular rate and regular rhythm Extremities: + edema Gastrointestinal (Abdomen): Inspection/Auscultation: normal bowel sounds P ercussion/Palpation: abdomen soft; abdomen nontender Musculoskeletal: Extremities: strength 5/5 throughout Skin: no rashes, warm and dry R foot bandaged Neurologic: foote, fluent speech, no tremor Results & Data Vital Signs (Past 12 Hours) Vital Signs Temp Pulse Pulse Resp BP BP Pulse Ox 05/31/25 07:49 55 L 05/31/25 07:17 36.6 C 57 L 18 156/61 H 96 05/31/25 04:19 36.7 C 56 L 18 128/67 96 05/31/25 00:32 36.8 C 52 L 18 124/71 97 05/30/25 23:12 05/30/25 23:12 52 L 05/30/25 20:37 36.7 C 53 L 18 120/69 95 O2 Del Method 05/31/25 07:49 05/31/25 07:17 Room Air 05/31/25 04:19 Room Air 05/31/25 00:32 Room Air 05/30/25 23:12 Room Air 05/30/25 23:12 05/30/25 20:37 Room Air Laboratory Results 05/29/25 06:00 05/31/25 05:34
--- NOTE | 2025-05-31 08:24 | Hospitalist Progress Note ---
Date of Service May 31, 2025 Assessment & Plan (1) UTI (urinary tract infection): (2) Diabetic ulcer of toe of left foot: (3) CKD (chronic kidney disease) stage 3, GFR 30-59 ml/min: (4) Heart failure with preserved ejection fraction: Plan 60-year-old female PMHx T2DM, HLD, HTN, HFpEF, CKD stage III, anxiety and depression, hypothyroidism, and known UTI presenting for vomiting and diarrhea x 3 to 4 days [employer]ERK and ongoing dysuria, frequency of urine since 2 weeks. Currently being managed for Macrobid treatment failure. #T2DM with R foot ulcer/ Osteomyelitis: H/o DMT2, also with known wound/ulcer R foot. At home regimen includes Glargine 80U BID, Aspart SSI. - Glucose at admission 177; Most recent A1C 03/2025 @ 8.1% - SSI with target BSG range 110-150mg/dL, CF 10, carb ratio 5 - Lantus 60 BID - BSG ACHS - For wound -- CT of foot was negative for OM (04/22/2025); Encourage offloading, Aquacel Ag dressing (change M/W/F) - Continue Wound care. - Xray foot shows no osteomyelitis but debridement performed with bone culture sent with podiatry with clinical findings of possible osteomyelitis. - Will continue the Ceftriaxone for osteomyelitis which she already completed her 7 day course for UTI for polymicrobial coverage. - Continue Podiatry consult and plan for 6 weeks treatment with osteomyelitis. #UTI/SIRS a/w vaginal candidiasis: -Known UTI a/w yeast infection failed outpatient treatment with Macrobid and Diflucan. -H/o chronic constipation resulting to emesis now and then.No sexual history, consider associated possible bacterial vaginosis. - CTAP shows no pyelonephritis, known incidental finding of Right adrenal myelolipoma measuring roughly 6.1 cm - Zofran prn N/V - Acetaminophen prn fever/pain - Completed 7 days course of Ceftriaxone for UTI. But will still continue Cef triaxone for Osteomyelitis of RT foot. - Continue Fluconazole, Nystatin powder topical for vaginal candidiasis. #KHANG/CKD In setting of known UTI and CKD, also in setting of recent vomiting. Baseline Cr 1.3-1.6. - Cr 2.26->2.31 BUN 34- BMP am - Bladder scan prn - Pt is concerned with holding HCTZ and spironolactone. If Cr worsened in am, will consider adjusting the dose. - Consulted Nephrology- Continue torsemide 20mg and Aldactone. - Avoid contrast and NSAIDS. - No IV fluid today. #Elevated troponin Pt w/ h/o NSTEMI, "[place] x 2"; no current chest pain. - Troponin 25.8, on repeat was 24.6. - EKG NSR, without ischemic changes - Likely 2/2 demand #N/V/D/Norovirus infection: No abdominal pain but does, PE WNL at admission. Hx of emesis now and then because of chronic constipation. - CBC leukocytosis 11.43-> N - Zofran prn N/V - Maalox prn - Stool studies showed Noro virus infection. Contact precautions ordered. #HFpEF- CXR without acute findings, echo (2021) EF 55-60% , Grade 2 abnormal Left ventricular diastolic dysfunction; Follows with cardiology -Imdur, spironolactone, torsemide - Continue - I & O monitoring. -Continuous weight monitoring. #HTN- Carvedilol, Imdur, spironolactone - Continue #HLD- Rosuvastatin - continue #Pain- Hydrocodone-acetaminophen prn; PDMP independently reviewed - continue but with close monitoring of plain tylenol use as well Dispo: Admit, med/tele -- in setting of elevated troponin; downgrade as appropriate VTE Prophylaxis: Heparin refused. Admission and Anticipated Discharge Date Admission Date: May 23, 2025 Supervising Physician Co-Signing Physician Notes I personally examined the patient and verified all tan points of history and exam, discussed case, and agree with decision making with Dr Stauffer No new complaints. tolerating antibiotics. Vitals noted, in general she is awake and alert pleasant no distress. HEENT normocephalic atraumatic mucous membranes moist. Breathing unlabored no accessory muscle use good effort. Foot dressed after surgery. No tracking erythema. Foot woundchronic. Osteomyelitis and a degree of surrounding cellulitisshe believes it is getting better on ceftriaxone, surface cultures showed MSSAseems to be improvingcontinue for now. Discussed with osteomyelitis, we will likely need to look at a prolonged course of IV antibiotics. Surgical cultures yet to finalize on sensitivities, but anticipate that it will match surface cultures given that the surface cultures were growing 2 different types of staph, as are the surgical cultures. Appreciate ID inputanticipate 6 weeks of antibiotics. Agree with Ancef (unless it is too difficult to get set up for home given that the patient is determined to go homein which case probably we would just continue with ceftriaxone). Discussed with patient strict need for offloading and nonweightbearing, and risk of BKA. Work on home antibiotics once we are able to. AKIAKI, lower and blood pressures, headache, dizziness, and dry mouth all strongly suggest that she was dry. Diuretics have been resumed (05/30). Follow. I do wonder if some of her swelling simply is chronic related to venous stasis, not CHF, but will follow blood pressure and creatinine and if creatinine rises again, obviously can hold diureticsstable from yesterday into today Does not appear to have thrushher refractory oral symptoms appear to have been due to dry mucosa UTI treated adequatelyongoing antibiotics really are directed at the foot infection sepsis POA - from UTI, foot, ?both. SIRS was WBC and temp. fortunately improving demand myocardial ischemia - from above, fortunately mild morbid obesity w BMI 48.4 - noted DVT prophylaxisheparin subcu Subjective Patient with I&D of right foot is sitting comfortably in her bed this morning. -Patient reports that the swelling her legs occur when she sits up, but the swelling gets better when lifting her legs. -Patient did admit to a little shortness of breath. Patient said she now has to sit up when trying to sleep. States this is not her normal. -States the nausea comes and goes and is not consistent anymore. Patient admits to vomiting but its only after eating and is more like a "reflux" type of issue. Patient denies any diarrhea currently. -Patient stated she felt a little chest discomfort. Her Coreg was held last night due to her pulse being too low. Describes it as a "hard beat", which she has had before. -Patient still has lightheadedness but says it is nothing new. She would get lightheaded when switching to the bedside commode. Review of Systems Review of Systems: as per subjective HPI Physical Exam Constitutional: WD/WN, vitals as above Eyes: + anicteric sclerae and EOM intact bilat erally ENMT: Mouth: no lip abnormality Neck: normal visual inspection Respiratory: normal respiratory effort, lungs clear to auscultation Cardiovascular: Rate/Rhythm: regular rate and regular rhythm Heart Sounds: normal S1 and normal S2; no murmur Extremities: + edema (2+ on R. leg. Trace- 1+ L.leg) Tenderness to palpation on R. tibia. Heart sounds faint and difficult to auscultate. Musculoskeletal: bandage on R. foot Psychiatric: A+Ox3, euthymic affect Results & Data Results & Data Vital Signs (Past 12 Hours) Vital Signs Temp Pulse Pulse Resp BP BP Pulse Ox 05/31/25 07:49 55 L 05/31/25 07:17 36.6 C 57 L 18 156/61 H 96 05/31/25 04:19 36.7 C 56 L 18 128/67 96 05/31/25 00:32 36.8 C 52 L 18 124/71 97 05/30/25 23:12 05/30/25 23:12 52 L 05/30/25 20:37 36.7 C 53 L 18 120/69 95 O2 Del Method 05/31/25 07:49 05/31/25 07:17 Room Air 05/31/25 04:19 Room Air 05/31/25 00:32 Room Air 05/30/25 23:12 Room Air 05/30/25 23:12 05/30/25 20:37 Room Air (2) Diabetic ulcer of toe of left foot Diabetes mellitus type: type 2 Non-pressure ulcer stage: with fat layer exposed Qualified Code(s): E11.621 - Type 2 diabetes mellitus with foot ulcer; L97.522 - Non-pressure chronic ulcer of other part of left foot with fat layer exposed (3) CKD (chronic kidney disease) stage 3, GFR 30-59 ml/min Chronic kidney disease stage 3 subtype: stage 3a (GFR 45-59) Qualified Code(s): N18.31 - Chronic kidney disease, stage 3a
--- NOTE | 2025-05-31 17:03 | Billing Data ---
Date of Service May 31, 2025 Coding Level of Care Code 54043 SUB INP/OBS CARE MIN
[2025-06-01 07:09] LABS: Anion Gap 8.0 (3-11); Blood Urea Nitrogen 27.0 mg/dl (6-23); Calcium 9.2 mg/dl (8.6-10.3); Carbon Dioxide 23.0 mmol/L (21-32); Chloride 107.0 mmol/L (98-107); Creatinine Clr Calc Pharmacy 46.7 ml/min; Glucose 208.0 mg/dl (70-99(Fasting)); Potassium 3.9 mmol/L (3.5-5.1); Sodium 138.0 mmol/L (136-145)
--- NOTE | 2025-06-01 07:49 | Hospitalist Progress Note ---
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 Currently being managed for Macrobid treatment failure. #T2DM with R foot ulcer/ Osteomyelitis: H/o DMT2, also with known wound/ulcer R foot. At home regimen includes Glargine 80U BID, Aspart SSI. - Glucose at admission 177; Most recent A1C 03/2025 @ 8.1% - SSI with target BSG range 110-150mg/dL, CF 10, carb ratio 5 - Lantus 60 BID - BSG ACHS - For wound -- CT of foot was negative for OM (04/22/2025); Encourage offloading, Aquacel Ag dressing (change M/W/F) - Continue Wound care. - Xray foot shows no osteomyelitis but debridement performed with bone culture sent with podiatry with clinical findings of possible osteomyelitis. - Will continue the Ceftriaxone for osteomyelitis which she already completed her 7 day course for UTI for polymicrobial coverage. - Continue Podiatry consult and plan for 6 weeks treatment with osteomyelitis. #UTI/SIRS a/w vaginal candidiasis: -Known UTI a/w yeast infection failed outpatient treatment with Macrobid and Diflucan. -H/o chronic constipation resulting to emesis now and then.No sexual history, consider associated possible bacterial vaginosis. - CTAP shows no pyelonephritis, known incidental finding of Right adrenal myelolipoma measuring roughly 6.1 cm - Zofran prn N/V - Acetaminophen prn fever/pain - Completed 7 days course of Ceftriaxone for UTI. But will still continue Cef triaxone for Osteomyelitis of RT foot. - Continue Fluconazole, Nystatin powder topical for vaginal candidiasis. #KHANG/CKD In setting of known UTI and CKD, also in setting of recent vomiting. Baseline Cr 1.3-1.6. - Cr 2.26->1.70 BUN 27- BMP am - Bladder scan prn - Pt is concerned with holding HCTZ and spironolactone. If Cr worsened in am, will consider adjusting the dose. - Consulted Nephrology- Continue torsemide 20mg and Aldactone. - Avoid contrast and NSAIDS. - No IV fluid today. #Elevated troponin Pt w/ h/o NSTEMI, "[place] x 2"; no current chest pain. - Troponin 25.8, on repeat was 24.6. - EKG NSR, without ischemic changes - Likely 2/2 demand #N/V/D/Norovirus infection: No abdominal pain but does, PE WNL at admission. Hx of emesis now and then because of chronic constipation. - CBC leukocytosis 11.43-> N - Zofran prn N/V - Maalox prn - Stool studies showed Noro virus infection. Contact precautions ordered. #HFpEF- CXR without acute findings, echo (2021) EF 55-60% , Grade 2 abnormal Left ventricular diastolic dysfunction; Follows with cardiology -Imdur, spironolactone, torsemide - Continue - I & O monitoring. -Continuous weight monitoring. #HTN- Carvedilol, Imdur, spironolactone - Continue #HLD- Rosuvastatin - continue #Pain- Hydrocodone-acetaminophen prn; PDMP independently reviewed - continue but with close monitoring of plain tylenol use as well Dispo: Admit, med/tele -- in setting of elevated troponin; downgrade as appropriate VTE Prophylaxis: Heparin refused. Admission and Anticipated Discharge Date Admission Date: May 23, 2025 Supervising Physician Co-Signing Physician Notes I personally examined the patient and verified all tan points of history and exam, discussed case, and agree with decision making with Dr Stauffer No new complaints. Discussed discharge planning. She also notes she has been declining the torsemide given that her breathing feels fine, and she is seeing her creatinine improved. Vitals noted, in general she is awake and alert pleasant no distress. HEENT normocephalic atraumatic mucous membranes moist. Breathing unlabored no accessory muscle use good effort. Foot dressed after surgery. No tracking erythema. Foot woundchronic. Osteomyelitis and a degree of surrounding cellulitis Postop, recovering well. Appreciate infectious disease inputin discussion with patient, given that this has been such a longstanding wound that has been very difficult to heal, and she is starting to get into territory of risking a BKA if there is much more significant progression, but she and I agree that it would make sense to treat the current infection as osteomyelitis regardless of whether or not the bone biopsy suggests that the infected bone has been resected. Given that it is pansensitive staphagree with infectious disease that Ancef would be optimal, 6 weeks of Ancef would essentially finish treatment on 07/11; if Ancef is not able to be set up given that it is 3 times daily, ceftriaxone would be a reasonable backup plan. To try to help facilitate an expeditious discharge, prescriptions for Ancef and ceftriaxone were given to case management with instructions that the Ancef would be preferred, but if it is unable to be set up they could then moved to ceftriaxone without needing to reach out for a second prescription and potentially delay care. She would prefer to avoid PICC lines if possibleit is possible that an ultrasound-guided peripheral IV could be all she needs for this. AKIAKI, lower and blood pressures, headache, dizziness, and dry mouth all strongly suggest that she was dry. Diuretics have been resumed (05/30). Follow. I do wonder if some of her swelling simply is chronic related to venous stasis, not CHF, I have been educating patient on what typically would constitute more of a CHF exacerbation versus more venous stasis, and the role for diuretics and both. Her creatinine improving, and her breathing being totally stable suggest that right now she probably does not need further aggressive diuresis. I suspect following this closely as an outpatient and looking at her situation fairly dynamically, and her having a trigger related to respiratory status, may serve her well. Does not appear to have thrushher refractory oral symptoms appear to have been due to dry mucosa UTI treated adequatelyongoing antibiotics really are directed at the foot infection sepsis POA - from UTI, foot, ?both. SIRS was WBC and temp. fortunately improving demand myocardial ischemia - from above, fortunately mild morbid obesity w BMI 48.4 - noted DVT prophylaxisheparin subcu Dispositionshe would like to go home (podiatry feels she would be better in a facility where strict nonweightbearing could be enforced, but she now expresses a better understanding of the need for strict nonweightbearing. Home once IV antibiotics are set up. Subjective Patient is a pleasant 60 year old female who appears to be stable this morning. Patient reports that her vaginitis is coming back, and her lightheadedness is still there. She also reports she has lower back pain, but thinks its because of the bed. However, the Benadryl and Zyrtec helped and patient is not short of breath anymore. Patient denies N/V, chest pain, and palpitations. Review of Systems Review of Systems: as per subjective HPI Physical Exam Constitutional: WD/WN, vitals as above Eyes: + anicteric sclerae and EOM intact bilat erally ENMT: Mouth: no lip abnormality Neck: normal visual inspection Respiratory: normal respiratory effort, lungs clear to auscultation Cardiovascular: Rate/Rhythm: regular rate and regular rhythm Heart Sounds: normal S1 and normal S2; no murmur Extremities: + edema (2+ on R. leg. Trace- 1+ L.leg) No tenderness on palpation on R. tibia Musculoskeletal: Patient currently has bandage on R. foot Skin: no rashes, warm and dry Psychiatric: A+Ox3, euthymic affect Results & Data Results & Data Vital Signs (Past 12 Hours) Vital Signs Temp Pulse Pulse Resp BP BP Pulse Ox 06/01/25 07:06 52 L 06/01/25 03:50 36.4 C L 55 L 18 120/73 97 06/01/25 00:24 36.8 C 55 L 18 113/57 L 96 05/31/25 23:35 05/31/25 23:34 51 L 05/31/25 20:17 36.9 C 57 L 20 135/80 95 O2 Del Method 06/01/25 07:06 06/01/25 03:50 Room Air 06/01/25 00:24 Room Air 05/31/25 23:35 Room Air 05/31/25 23:34 05/31/25 20:17 Room Air (2) Diabetic ulcer of toe of left foot Diabetes mellitus type: type 2 Non-pressure ulcer stage: with fat layer exposed Qualified Code(s): E11.621 - Type 2 diabetes mellitus with foot ulcer; L97.522 - Non-pressure chronic ulcer of other part of left foot with fat layer exposed (3) CKD (chronic kidney disease) stage 3, GFR 30-59 ml/min Chronic kidney disease stage 3 subtype: stage 3a (GFR 45-59) Qualified Code(s): N18.31 - Chronic kidney disease, stage 3a
[2025-06-01] MEDS: LANTUS PER UNIT CHARGE SQ SCH (08:59)
--- NOTE | 2025-06-01 09:02 | Nephrology Progress Note ---
Date of Service June 01, 2025 Assessment & Plan (1) KHANG (acute kidney injury): Plan: Patient with KHANG on CKD due to ischemic ATN in setting Norovirus and infected right foot wound. Cr peaked at 2.2 but down to 1.7 today. Baseline 1.6 -on torsemide 20 mg daily since 05/30 >> ordered but pt not taking; on spironolactone 25 mg daily since 05/30 and taking - Blood pressure with acceptable control: Continue carvedilol 25 mg twice daily and diuretics as below >>need to get her on viable OP diuretic regimen as KHANG resolves >> lowered cruz to 12.5 mg daily and torse to 10 mg daily >> plan was to start these today however patient had already had 25 mg spironolactone and declines to take torsemide today so we will start this regimen tomorrow >> If truly for discharge tomorrow could be discharged on these diuretic doses, log standing weights at home, basic metabolic panel weekly x 3 to be monitored by PCP, hospital discharge with me in 3 to 4 weeks While in house we will continue to follow continue above diuretic No IV fluids today unless hypotensive -Avoid contrast. -daily bmp (2) Heart failure with preserved ejection fraction: Plan: She is currently euvolemic. GDMT diuretics. Low salt diet. (3) Type 2 diabetes mellitus with foot ulcer: Plan: Continue cefazolin renally dosed. Admission and Anticipated Discharge Date Admission Date: May 23, 2025 Subjective No interval events clinically. Denies shortness of breath worsening edema, new or worsening voiding concerns, new wound issues with right foot. Hoping for discharge home tomorrow Review of Systems 2 Review of Systems: All systems reviewed & are unremarkable except as noted in Subjective Physical Exam 2 Constitutional: well developed (Sitting on the side of the bed on room air), well nourished and cooperative Eyes: EOM intact bilaterally ENMT: Ears: no external ear abnormality Nose: no external nose abnormality Mouth: + dry oral mucous membranes Neck: no nuchal rigidity Respiratory: normal respiratory effort Auscultation: + diminished lung sounds Cardiovascular: Rate/Rhythm: regular rate and regular rhythm Extremities: + edema (Right lower extremity 1+; left trace) Gastrointestinal (Abdomen): Inspection/Auscultation: normal bowel sounds P ercussion/Palpation: abdomen soft; abdomen nontender Musculoskeletal: Extremities: strength 5/5 throughout Skin: no rashes, warm and dry (Right foot wound wrapped) Results & Data Vital Signs (Past 12 Hours) Vital Signs Temp Pulse Pulse Resp BP Pulse Ox O2 Del Method 06/01/25 07:54 36.7 C 57 L 16 112/50 L 96 Room Air 06/01/25 07:06 52 L 06/01/25 03:50 36.4 C L 55 L 18 120/73 97 Room Air 06/01/25 00:24 36.8 C 55 L 18 113/57 L 96 Room Air 05/31/25 23:35 Room Air 05/31/25 23:34 51 L Laboratory Results 05/29/25 06:00 06/01/25 06:12
[2025-06-01] MEDS: TORSEMIDE 10 MG TAB PO SCH (09:22)
--- NOTE | 2025-06-01 13:55 | Billing Data ---
Date of Service June 01, 2025 Coding Level of Care Code 57945 SUB INP/OBS CARE MIN
--- NOTE | 2025-06-01 14:29 | Pharmacy Report ---
Pharmacy Glycemic Short Note 2 - Date of Service June 01, 2025 - Glycemic Short BSG Results (Last 24 hours): 05/31/25 05/31/25 06/01/25 16:50 20:28 06:12 Glucose 208 H POC Glucose 173 H 212 H 06/01/25 06/01/25 08:08 11:28 Glucose POC Glucose 225 H 203 H OUTPATIENT ANTIDIABETIC REGIMEN: * Lantus 80 units SQ BID * Novolog 30-40 units SQ TID * HbA1c: 8.1% (04/01/25) ASSESSMENT: 06/01: * Patient received total of 86 units of insulin yesterday, of which 50 units were basal * Fasting BSG >200, will provide slight increase in basal this AM * Plan to tighten novolog as BSGs yesterday still above goal 05/30: * Corazon received a total of 76 units of insulin yesterday (40 units were basal and 36 units were bolus) BSGs were above goal most of the day. * Fasting BSG was 207mg/dL this morning and continued to rise at lunch. CR tightened for lunch-HS doses and HS Lantus scale increased (will now receive 0, 15 or 25 units depending on BSG) 05/28: * Corazon received a total of 43 units of insulin yesterday. (20 units were basal and 23 units were bolus). With the bolus adjustments made yesterday, her blood glucose readings were closer to goal. Will continue the bolus insulin regimen today without change. * Fasting BSG was 166mg/dL this morning. She was made NPO this morning for the OR so reduced her AM Lantus by 50% for today. Will continue Lantus scale at HS. 05/27: * Corazon received a total of 49 units of insulin yesterday (30 units were basal and 19 units were bolus). BSGs were [phone]/dL. * Fasting BSG this morning was 139mg/dL. Lantus was decreased to 20 units QAM and Lantus scale at HS also reduced (now 0, 10 or 20 units depending on BSG) since BSGs have been below goal in the evening. * Will trial tightening bolus insulin parameters at breakfast and then loosening the rest of the day also as lunch readings have been above goal and readings in the evening have been below goal. 05/26: * Corazon received a total of 89 units of insulin yesterday (50 units were basal and 39 units were bolus). BSGs were [phone]/dL * Fasting BSG was 162mg/dL this morning. BID Lantus scale was decreased so that she will now receive 0,30, or 50 units depending on BSG as she has had some blood glucose readings that have been below goal in the evenings. * Correction factor was loosened yesterday. Will continue current bolus insulin regimen without change for now. 05/24 * Ms Shea is a 60yo diabetic F admitted with UTI/KHANG and N/V/D for the past 3-4 days. * Insulin orders initiated conservatively on admission. BSGs have been above goal, so orders have been adjusted today. * Continue to titrate Lantus cautiously in the setting of KHANG and decreased PO intake. * Pharmacy will continue to follow and adjust regimen as indicated. PLAN FOR INPATIENT GLYCEMIC CONTROL: * Hold outpatient oral diabetes medications * Basal insulin * Lantus 25 units SQ Q AM and Lantus 25-30 units HS * Bolus insulin * NovoLog per scale ACHS or Q6hrs while NPO * Goal Range: Low 120 mg/dL - High 160 mg/dL * Breakfast: -Correction Factor: 12 mg/dL/unit -Nutritional / Prandial insulin per carb ratio of 1 unit per 3 grams CHO consumed * Lunch, dinner, HS -Correction Factor: 15 mg/dL/unit -Nutritional / Prandial insulin per carb ratio of 1 unit per 5
--- NOTE | 2025-06-02 07:29 | Hospitalist Progress Note ---
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 Currently being managed for Macrobid treatment failure. #T2DM with R foot ulcer/ Osteomyelitis: H/o DMT2, also with known wound/ulcer R foot. At home regimen includes Glargine 80U BID, Aspart SSI. - Glucose at admission 177; Most recent A1C 03/2025 @ 8.1 - Insulin recs per pharmacy: * Basal insulin * Lantus 33 units SQ BID * Bolus insulin * NovoLog per scale ACHS or Q6hrs while NPO * Goal Range: Low 120 mg/dL - High 160 mg/dL * Breakfast: -Correction Factor: 12 mg/dL/unit -Nutritional / Prandial insulin per carb ratio of 1 unit per 2.5 grams CHO consumed * Lunch, dinner, HS -Correction Factor: 15 mg/dL/unit -Nutritional / Prandial insulin per carb ratio of 1 unit per 5 - For wound -- CT of foot was negative for OM (04/22/2025); Encourage offloading, Aquacel Ag dressing (change M/W/F) - Xray foot shows no osteomyelitis but debridement performed with bone culture sent with podiatry with clinical findings of possible osteomyelitis. - Continue Wound care - Will continue the cefazolin 2g TID for osteomyelitis - Podiatry on board and plan for 6 weeks treatment with osteomyelitis - PICC line discussed in detail and consented by patient at bedside with witness - follow pathology cultures - consider D/c tomorrow #UTI/SIRS a/w vaginal candidiasis: -Known UTI a/w yeast infection failed outpatient treatment with Macrobid and Diflucan. -H/o chronic constipation resulting to emesis now and then.No sexual history, consider associated possible bacterial vaginosis. - CTAP shows no pyelonephritis, known incidental finding of Right adrenal myelolipoma measuring roughly 6.1 cm - Acetaminophen prn fever/pain - Completed 7 days course of Cefazolin for UTI. But will still continue Cefazolin for Osteomyelitis of RT foot. - Continue Nystatin powder topical for vaginal candidiasis. #KHANG/CKD In setting of known UTI and CKD, also in setting of recent vomiting. Baseline Cr 1.3-1.6. - Cr 2.26->1.700> 1.71; BUN 29- BMP am - Bladder scan prn - Nephrology on board- Continue torsemide 20mg and Aldactone. - Avoid contrast and NSAIDS. - No IV fluids #Elevated troponin Pt w/ h/o NSTEMI, "NV x 2" repeat was 24.6. - EKG NSR, without ischemic changes - Likely 2/2 demand - stable, currently asymptomatic #N/V/D/Norovirus infection, resolved: No abdominal pain or diarrhea. - CBC leukocytosis 11.43-> 8.6 today - Zofran prn N/V - Maalox prn - Stool studies showed Noro virus infection. Contact precautions. #HFpEF- CXR without acute findings, echo (2021) EF 55-60% , Grade 2 abnormal Left ventricular diastolic dysfunction; Follows with cardiology -Imdur, spironolactone, torsemide - Continue - I & O monitoring. -Continuous weight monitoring. #HTN- Carvedilol, Imdur, spironolactone - Continue #HLD- Rosuvastatin - continue #Pain- On Tylenol prn. Hydrocodone-acetaminophen prn; PDMP independently reviewed - continue but with close monitoring of pain Dispo: med/tele VTE Prophylaxis: Heparin refused. Admission and Anticipated Discharge Date Admission Date: May 23, 2025 Supervising Physician Co-Signing Physician Notes I personally examined the patient and verified all tan points of history and exam, discussed case, and agree with decision making with Dr Monahan No new complaints. Discussed discharge planning. She complains of some foot pain however she declines medications and just feels she wants to elevate her foot. sepsis POA - from UTI, foot, ?both. improving Foot woundchronic. Osteomyelitis and a degree of surrounding cellulitisdiscussed the need for PICC line likely best treatment would be prolonged course of cefazolin. Recommend case management to make the arrangements. Additionally urinary tract infection present on admission will be treated with the IV antibiotics. AKIimproving. Has risk factors demand myocardial ischemia - from above, fortunately mild morbid obesity w BMI 48.4 - noted DVT prophylaxisheparin subcu Dispositionshe would like to go home (podiatry feels she would be better in a facility where strict nonweightbearing could be enforced, but she now expresses a better understanding of the need for strict nonweightbearing. Home once IV antibiotics PICC line pending placement Subjective No overnight events. Pt seen and examined this AM at bedside. She states she is feeling okay. She has been trying to elevate and rest her right foot but stated she needed to ambulate this morning so she is expecting some discomfort later but none currently. Still has some post nasal drip that is not relieved with Zyrtec and Benadryl. She felt a little nauseous and bloated this morning but no vomiting. Pt states that her UTI sx have resolved and she has no other complaints. Denies fever, chills, abdominal pain, CP, palpitations/fluttering, SOB. Review of Systems Review of Systems: per HPI Physical Exam Physical Exam: GA: AAOx4, well-groomed, no apparent distress HEENT: sclera anicteric, EOMI CVS: S1 and S2 heard, no murmurs, rubs, or gallops, Pulse: regular rate and rhythm, 2+ B/L RESP: vesicular breath sounds, no wheezes, rhonchi, or rales ABD: nontender, nondistended, normoactive bowel sounds SKIN: flaking skin at the legs B/L. 2+ edema B/L. NEURO: no focal deficits noted EXTREMITIES: right foot in dressing Results & Data Results & Data Vital Signs (Past 12 Hours) Vital Signs Temp Pulse Pulse Resp BP BP Pulse Ox 06/02/25 07:20 61 06/02/25 04:00 36.6 C 57 L 18 129/54 L 96 06/02/25 00:32 06/01/25 23:59 55 L 06/01/25 22:33 36.8 C 56 L 20 121/69 96 06/01/25 19:58 36.9 C 54 L 18 120/48 L 96 O2 Del Method 06/02/25 07:20 06/02/25 04:00 Room Air 06/02/25 00:32 Room Air 06/01/25 23:59 06/01/25 22:33 Room Air 06/01/25 19:58 Room Air Resident Activity Tracking Resident Involvement: Resident Care Provided Care Provided: Adult Hospital Medicine (2) Diabetic ulcer of toe of left foot Diabetes mellitus type: type 2 Non-pressure ulcer stage: with fat layer exposed Qualified Code(s): E11.621 - Type 2 diabetes mellitus with foot ulcer; L97.522 - Non-pressure chronic ulcer of other part of left foot with fat layer exposed (3) CKD (chronic kidney disease) stage 3, GFR 30-59 ml/min Chronic kidney disease stage 3 subtype: stage 3a (GFR 45-59) Qualified Code(s): N18.31 - Chronic kidney disease, stage 3a (4) Heart failure with preserved ejection fraction Heart failure chronicity: unspecified Qualified Code(s): I50.30 - Unspecified diastolic (congestive) heart failure
[2025-06-02 08:06] LABS: Hematocrit (blood only) 32.3 % (37.0-47.0); Hemoglobin 10.7 g/dl (12.0-16.0); Immature Granulocytes # (auto) 0.18 K/uL (0.01-0.20); Immature Granulocytes % (auto) 2.1 %; Mean Corpuscular Hemoglobin 27.1 pg (25.0-34.0); Mean Corpuscular Volume 81.8 fL (80.0-100.0); Platelet Count 343 K/uL (130-400); RDW Standard Deviation 46.5 fL (36.4-46.3); Red Blood Count 3.95 M/uL (4.20-5.40); White Blood Count 8.63 K/ul (4.8-10.8)
[2025-06-02 08:23] LABS: Anion Gap 7.0 (3-11); Blood Urea Nitrogen 29.0 mg/dl (6-23); Calcium 8.9 mg/dl (8.6-10.3); Carbon Dioxide 24.0 mmol/L (21-32); Chloride 107.0 mmol/L (98-107); Creatinine Clr Calc Pharmacy 46.8 ml/min; Glucose 213.0 mg/dl (70-99(Fasting)); Potassium 3.8 mmol/L (3.5-5.1); Sodium 138.0 mmol/L (136-145)
[2025-06-02] MEDS: LANTUS PER UNIT CHARGE SQ SCH ×2 (08:58→21:09)
[2025-06-02] MEDS: SPIRONOLACTONE 12.5 MG TAB PO SCH (09:01)
--- NOTE | 2025-06-02 11:33 | Infectious Disease Progress Nt ---
Date of Service June 02, 2025 Assessment & Plan (1) Diabetic ulcer of right foot associated with type 2 diabetes mellitus, with bone involvement without evidence of necrosis: (2) Acute osteomyelitis of metatarsal bone of right foot: (3) Leukocytosis: (4) KHANG (acute kidney injury): (5) Complicated urinary tract infection: Plan This is a 60-year-old female with past medical history DM2,peripheral neuropathy, gastroparesis, right foot osteomyelitis, Charcot foot, status post multiple surgical procedures including skin grafting, +MRSA diabetic foot infections, CKD, chronic right lower extremity ulcer (follows at wound care),hyperlipidemia who presented to the ED for evaluation of UTI symptoms on 05/23/25. She complained of dysuria, nausea, vomiting. She had been on nitrofurantoin for 3 doses without improvement in symptoms. She also complained of chronic right lower extremity swelling and non healing foot wound. About a week and a half prior to admission she felt she was developing a vaginal yeast infection. She usually gets yeast infections while on antibiotics that she receives at wound clinic for her right foot. She was started on Diflucan which helped her yeast symptoms, but then developed bilateral back pain, rigors and dysuria. Temperature at home 38.4. In ED afebrile and hemodynamically stable. Tmax this admission 38. Labs: WBC 12.2, BUN 49 creatinine 1.84, lactate 1.3, procalcitonin 0.2, ESR 79, CRP 10.42. Urinalysis with 2+ leukocyte esterase greater than 50 WBCs. . Urine culture with 30K Klebsiella pneumoniae with intermediate susceptibility to nitrofurantoin. She was started on cefepime which was switched to ceftriaxone. Chest x-ray showed no acute cardiopulmonary disease. CT abdomen pelvis showed right adrenal myelolipoma. Splenomegaly. Nonobstructing left nephrolith. Right foot x-ray showed stable pes planus. Stable talar collapse. No acute fracture. No evidence of osteomyelitis. She was evaluated by podiatry for nonhealing foot ulcer and possible right foot infection. R foot noted to have increased erythema and edema compared to prior wound care center photos. Also noted to have purulent drainage from the wound bed with necrosis of subcutaneous fat. She underwent I&D of the right foot wound with debridement of all necrotic appearing soft tissue and bone biopsy on 05/28/25. Exposed bone noted in the dorsal lateral aspect of the fifth metatarsal shaft within the wound bed following debridement of all necrotic tissue. There was concern for osteomyelitis. Bone was debrided. Bone culture of the fifth metatarsal and pathology obtained. Soft tissue cultures also obtained. To date all in traoperative bone/soft tissue and pre-OR wound cultures growing MSSA. Pathology pending. During this admission Stool PCR sent for diarrhea, nausea and vomiting. She did not have abdominal pain. Stool PCR positive for norovirus. C. difficile negative. Currently on contact isolation. Infectious disease consulted for right foot osteomyelitis, chronic nonhealing wound. She remains on Ceftriaxone. An E consult without video evaluation completed as video/camera is not working Microbiology 05/23/2025 blood culture NG 05/23/2025 urine culture Klebsiella pneumoniae (I nitrofurantoin, sensitive to all others tested) 05/24/2025 GI/stool PCR positive for norovirus 05/25/2025 right foot wound culture MSSA (prelim) 05/28/2025 (ORsoft tissue culture #1) MSSA (prelim) 05/28/2025 (OR soft tissue culture #2) MSSA (prelim) 05/28/2025 (ORbone culture) MSSA (prelim) Antibiotics Cefepime 05/23 - 05/26 Fluconazole 05/25 Metronidazole05/25 Ceftriaxone Cefazolin 05/30- current # Right mid foot foot DFI/ cellulitis # Right foot fifth metatarsal osteomyelitis with MSSA to date - sp debridement # Klebsiella pneumoniae pyelonephritis # Norovirus on stool PCR # CKD # Antibiotic allergies Doxycyclinerash Dalbavancinrash # Antibiotic side effects Ceftazidime-renal failure Vancomycinrenal failure, Discussion: She presents with UTI symptomsdysuria, back pain, nausea, vomiting. She was on outpatient nitrofurantoin. Klebsiella pneumonia grew at 30K CFU in urine culture. Low growth likely secondary to exposure to nitrofurantoin with intermediate sensitivity outpatient. Agree with a 7-day course of treatment for possible pyelonephritis as she presented with local urinary and systemic symptoms. Tmax 38 She has a chronic right foot wound for which she follows at wound care. Wound has worsened. Picture of the right foot wound from 05/26 reviewed -noted a plantar wound near the base of the fifth metatarsal with surrounding erythema consistent with cellulitis. ? Purulent appearing drainage noted in wound bed. Initial podiatry exam from 05/27 reviewed "Deformity of the right foot secondary to Charcot neuroarthropathy with evidence of significant surgical intervention and skin grafting extending around the foot medially. Patient has a diabetic ulceration subfifth metatarsal base laterally extending into subcutaneous tissue with purulent drainage upon compression of surrounding tissues. Erythema and edema extending to the level of the right ankle. No notable lymphangitis. Wound does not probe to any identifiable bone at this time" She underwent I&D on 05/28/2025 of Right foot. There is concern for osteomyelitis at the fifth metatarsal. Bone debrided. Intraoperative soft tissue and bone cultures growing MSSA so far. Pathology pending. Discontinue CEftriaxone and started Cefazolin Recommendations: Coninue cefazolin 2 g IV every 8 hours ( cr cl 46) as bone, soft tissue growing MSSA and Klebsiella pneumoniae in urine also sensitive. Follow-up finalization of intraoperative cultures from 05/28 -Follow-up bone pathology Continue contact isolation for positive norovirus PCR Anticipate 7 days of treatment for pyelonephritis. However given positive bone cultures she will need a longer course for osteomyelitis. Bone pathology p ending. Anticipate 6 weeks of IV antibiotics, if bone biopsy shows residual infection post debridement. ID will continue to follow. Dandy He MD, MPH Infectious Disease [facility], [facility] Call [phone] with questions. Admission and Anticipated Discharge Date Admission Date: May 23, 2025 Subjective This patient recommendation is based on a telemedicine consult request which was completed asynchronously through chart review and information provided by the primary physician. The patient was not seen or examined today. The evaluation is consultative in nature and all patient care and treatment decisions can either be accepted or rejected by the patient's primary hospital-based treating physician using their own independent medical judgment for their patient. Time Spent Reviewing Chart: 21 - 30 minutes Weekend events reviewed Afebrile Intraop cx MSSA so far Path pending. Results & Data Vital Signs (Past 12 Hours) Vital Signs Temp Pulse Pulse Resp BP BP Pulse Ox 06/02/25 11:28 36.7 C 55 L 20 131/66 97 06/02/25 11:22 06/02/25 08:19 36.5 C 52 L 18 135/82 98 06/02/25 07:20 61 06/02/25 04:00 36.6 C 57 L 18 129/54 L 96 06/02/25 00:32 06/01/25 23:59 55 L O2 Del Method 06/02/25 11:28 Room Air 06/02/25 11:22 Room Air 06/02/25 08:19 Room Air 06/02/25 07:20 06/02/25 04:00 Room Air 06/02/25 00:32 Room Air 06/01/25 23:59 Laboratory Results Laboratory Results - last 48 hr 05/31/25 05/31/25 05/31/25 12:04 16:50 20:28 WBC RBC Hgb Hct MCV MCH MCHC RDW Std Deviation RDW Coeff of Anai Plt Count MPV Immature Gran % (Auto) Neut % (Auto) Lymph % (Auto) [place] % (Auto) Eos % (Auto) Baso % (Auto) Neut # (Auto) Lymph # (Auto) [place] # (Auto) Eos # (Auto) Baso # (Auto) Immature Gran # (Auto) Sodium Potassium Chloride Carbon Dioxide Anion Gap BUN Creatinine Est Cr Clr Drug Dosing eGFR BUN/Creatinine Ratio Glucose POC Glucose 210 H 173 H 212 H Calcium 06/01/25 06/01/25 06/01/25 06:12 08:08 11:28 WBC RBC Hgb Hct MCV MCH MCHC RDW Std Deviation RDW Coeff of Anai Plt Count MPV Immature Gran % (Auto) Neut % (Auto) Lymph % (Auto) [place] % (Auto) Eos % (Auto) Baso % (Auto) Neut # (Auto) Lymph # (Auto) [place] # (Auto) Eos # (Auto) Baso # (Auto) Immature Gran # (Auto) Sodium 138 Potassium 3.9 Chloride 107 Carbon Dioxide 23 Anion Gap 8 BUN 27 H Creatinine 1.70 H Est Cr Clr Drug Dosing 46.7 eGFR 33.70 BUN/Creatinine Ratio 15.9 Glucose 208 H POC Glucose 225 H 203 H Calcium 9.2 06/01/25 06/01/25 06/02/25 16:52 20:02 07:19 WBC 8.63 RBC 3.95 L Hgb 10.7 L Hct 32.3 L MCV 81.8 MCH 27.1 MCHC 33.1 RDW Std Deviation 46.5 H RDW Coeff of Anai 16.0 H Plt Count 343 MPV 8.5 L Immature Gran % (Auto) 2.1 Neut % (Auto) 64.3 Lymph % (Auto) 24.2 [place] % (Auto) 6.6 Eos % (Auto) 2.5 Baso % (Auto) 0.3 Neut # (Auto) 5.54 Lymph # (Auto) 2.09 [place] # (Auto) 0.57 Eos # (Auto) 0.22 Baso # (Auto) 0.03 Immature Gran # (Auto) 0.18 Sodium 138 Potassium 3.8 Chloride 107 Carbon Dioxide 24 Anion Gap 7 BUN 29 H Creatinine 1.71 H Est Cr Clr Drug Dosing 46.8 eGFR 33.46 BUN/Creatinine Ratio 17.0 Glucose 213 H POC Glucose 157 H 223 H Calcium 8.9 06/02/25 08:02 WBC RBC Hgb Hct MCV MCH MCHC RDW Std Deviation RDW Coeff of Anai Plt Count MPV Immature Gran % (Auto) Neut % (Auto) Lymph % (Auto) [place] % (Auto) Eos % (Auto) Baso % (Auto) Neut # (Auto) Lymph # (Auto) [place] # (Auto) Eos # (Auto) Baso # (Auto) Immature Gran # (Auto) Sodium Potassium Chloride Carbon Dioxide Anion Gap BUN Creatinine Est Cr Clr Drug Dosing eGFR BUN/Creatinine Ratio Glucose POC Glucose 250 H Calcium Microbiology 05/28/25 Unknown Foot Gram Stain - Final 05/28/25 Unknown Foot Aerobic and Anaerobic Culture - Preliminary Staphylococcus aureus Staphylococcus aureus#2 05/28/25 Unknown Foot,Right Gram Stain - Final 05/28/25 Unknown Foot,Right Aerobic and Anaerobic Culture - Preliminary Staphylococcus aureus Staphylococcus aureus#2 05/28/25 Unknown Foot Gram Stain - Final 05/28/25 Unknown Foot Aerobic and Anaerobic Culture - Preliminary Staphylococcus aureus Staphylococcus aureus#2 05/25/25 09:50 Foot,Right Gram Stain - Final 05/25/25 09:50 Foot,Right Aerobic and Anaerobic Culture - Final Staphylococcus aureus Staphylococcus aureus#2 05/23/25 19:47 Blood Aerobic Blood Culture - Final No growth in Aerobic bottle after 5 days. 05/23/25 19:47 Blood Anaerobic Blood Culture - Final No growth in Anaerobic bottle after 5 days. 05/23/25 19:47 Blood Aerobic Blood Culture - Final No growth in Aerobic bottle after 5 days. 05/23/25 19:47 Blood Anaerobic Blood Culture - Final No growth in Anaerobic bottle after 5 days. 05/23/25 19:47 Urine,Clean Catch Urine Culture - Final Klebsiella pneumoniae Medications Administered Home Medications Medication Instructions Recorded Confirmed Last Taken cetirizine 10 mg tablet (Zyrtec) 10 mg PO DAILY 12/15/21 05/23/25 05/23/25 nitroglycerin 0.4 mg sublingual 0.4 mg sublingual UD PRN chest 12/29/21 05/23/25 Unknown tablet (Nitrostat) pain #30 tabs diphenhydramine HCl 25 mg capsule 50 mg PO DAILY PRN allergies 03/24/22 05/23/25 Unknown (Allergy (diphenhydramine)) lancets 30 gauge (GamyTechTouch Delica #100 ea 04/18/22 05/14/25 Unknown Lancets) carvedilol 25 mg tablet 25 mg PO BID 10/07/22 05/23/25 05/23/25 08:00 spironolactone 25 mg tablet 25 mg PO DAILY 11/14/22 05/23/25 05/23/25 ondansetron HCl 4 mg tablet 4 mg PO Q6H PRN nausea and vomiting 01/23/2302/09 Unknown Bacillus coagulans 250 million 500 cell PO UD 07/14/23 05/23/25 Unknown cell chewable tablet (Digestive Advantage Probiotic Gummy) aspirin 81 mg tablet,delayed 81 mg PO DAILY PRN chest discomfort 07/14/23 05/23/25 Unknown release bisacodyl 5 mg tablet,delayed 10 mg PO Q7D PRN Constipation 07/14/23 05/23/25 Unknown release isosorbide mononitrate 60 mg 90 mg PO DAILY 01/08/24 05/23/25 05/23/25 tablet,extended release 24 hr Carbonated Contentuch Verio test strips (blood #300 ea 10/17/24 05/14/25 Unknown sugar diagnostic) acetaminophen 500 mg tablet 500 mg PO DIRECTED PRN Pain 12/29/24 05/23/25 Unknown hydrocodone 5 mg-acetaminophen 325 0.5 tab PO Q6H PRN Pain 12/29/24 05/23/25 Unknown mg tablet peg 400-propylene glycol (PF) 0.4 1 drp ophthalmic (eye) QID 12/29/24 05/23/25 Unknown %-0.3 % eye drops in a dropperette (Systane (PF)) insulin syringe-needle U-100 1 mL #600 ea 03/03/25 05/14/25 Unknown 28 gauge x 1/2" insulin aspart U-100 100 unit/mL See Rx Instructions .Route 04/23/25 05/23/25 05/22/25 subcutaneous solution (Novolog .COMPLEX #30 mL U-100 Insulin aspart) insulin glargine 100 unit/mL 80 unit (0.8 mL) subcut BID #150 mL 04/23/25 05/23/25 05/23/25 08:00 subcutaneous solution (Lantus U-100 Insulin) rosuvastatin 40 mg tablet 40 mg PO HS #90 tabs 04/23/25 05/23/25 05/22/25 torsemide 20 mg tablet 40 mg PO DAILY 05/23/25 05/23/25 05/23/25 17:00 Active Medications Generic Name Dose Route Start Last Admin Trade Name Freq PRN Reason Stop Dose Admin Acetaminophen 650 mg 05/24/25 04:35 05/24/25 20:03 Acetaminophen 325 Mg Tab PO 06/23/25 04:34 650 mg Q4H PRN Administration Pain or Fever Hydrocodone Bitart/Acetaminophen 0.5 tab 05/24/25 00:58 05/31/25 21:16 Hydrocodone/Acetamophen 5/325mg Tab PO 06/07/25 00:57 0.5 tab Q6H PRN Administration Pain Artificial Tears 1 drops 05/24/25 09:00 06/02/25 09:00 Artificial Tears OP 06/23/25 08:59 1 drops QID KENNEDY Administration Carvedilol 25 mg 05/31/25 21:00 06/02/25 08:59 Carvedilol 25 Mg Tab PO 06/30/25 20:59 25 mg BID KENNEDY Administration Cetirizine HCl 10 mg 05/24/25 09:00 06/02/25 11:34 Cetirizine Hcl 10 Mg Tablet PO 06/23/25 08:59 10 mg DAILY KENNEDY Administration Diphenhydramine HCl 50 mg 05/24/25 00:58 06/01/25 22:49 Diphenhydramine Capsule 25 Mg Cap PO 06/23/25 00:57 50 mg DAILY PRN Administration allergies Heparin Sodium (Porcine) 7,500 units 05/24/25 09:00 06/02/25 08:57 Heparin Sod 5,000 Unit/0.5 Ml Vial SQ 06/23/25 08:59 Not Given Q12 KENNEDY Prochlorperazine 5 mg/ Syringe 5 mls @ 5 mls/min 05/26/25 19:49 05/26/25 21:18 IV 06/25/25 19:48 5 mls/min Q6H PRN Administration Breakthrough N/V Cefazolin Sodium 2,000 mg in 15 mls @ 3.75 mls/min 05/30/25 13:00 06/02/25 05:53 Ancef 2000mg IV 07/11/25 12:59 3.75 mls/min Q8H KENNEDY Administration Insulin Aspart 0 units 05/27/25 08:15 06/02/25 08:58 Insulin Aspart Per Unit Charge SC 06/26/25 08:14 17 units 0730 KENNEDY Administration Insulin Aspart 0 units 05/27/25 11:30 06/01/25 20:34 Insulin Aspart Per Unit Charge SC 06/26/25 11:29 5 units 1130,1630,2100 KENNEDY Administration Insulin Glargine 0 units 05/27/25 21:00 06/01/25 20:34 Lantus Per Unit Charge SQ 06/26/25 20:59 30 units HS KENNEDY Administration Protocol Insulin Glargine 33 units 06/02/25 09:00 06/02/25 08:58 Lantus Per Unit Charge SQ 07/01/25 08:59 33 units DAILY KENNEDY Administration Isosorbide Mononitrate 90 mg 05/24/25 09:00 06/02/25 08:59 Isosorbide [place] Extended Rel 30 Mg Tabcr PO 06/23/25 08:59 90 mg DAILY KENNEDY Administration Nystatin 1 appln 05/29/25 21:00 06/02/25 09:01 Nystatin Powder 15gm Btl EXT 06/28/25 20:59 1 appln BID KENNEDY Administration Nystatin/Triamcinolone Acetonide 1 appln 05/25/25 21:00 06/02/25 09:02 Nystatin/Triamcin Cr 15 Gm Tube EXT 06/24/25 20:59 1 appln BID KENNEDY Administration Ondansetron HCl 4 mg 05/24/25 00:58 05/26/25 17:10 Ondansetron Inj 2 Mg/Ml 2 Ml Vial IV 06/23/25 00:57 4 mg Q6H PRN Administration Nausea Rosuvastatin Calcium 40 mg 05/24/25 21:00 06/01/25 20:35 Rosuvastatin Calcium 20 Mg Tab PO 06/23/25 20:59 40 mg HS KENNEDY Administration Spironolactone 12.5 mg 06/02/25 09:00 06/02/25 09:01 Spironolactone 12.5 Mg Tab PO 07/02/25 08:59 12.5 mg DAILY KENNEDY Administration Torsemide 10 mg 06/01/25 09:10 06/02/25 11:34 Torsemide 10 Mg Tab PO 07/01/25 09:09 10 mg QAM KENNEDY Administration (1) Diabetic ulcer of right foot associated with type 2 diabetes mellitus, with bone involvement without evidence of necrosis Diabetic foot ulcer location: midfoot Qualified Code(s): E11.621 - Type 2 diabetes mellitus with foot ulcer; L97.416 - Non-pressure chronic ulcer of right heel and midfoot with bone involvement without evidence of necrosis
--- NOTE | 2025-06-02 12:00 | Pharmacy Report ---
Pharmacy Glycemic Short Note 2 - Date of Service June 02, 2025 - Glycemic Short BSG Results (Last 24 hours): 06/01/25 06/01/25 06/02/25 16:52 20:02 07:19 Glucose 213 H POC Glucose 157 H 223 H 06/02/25 06/02/25 08:02 11:38 Glucose POC Glucose 250 H 202 H OUTPATIENT ANTIDIABETIC REGIMEN: * Lantus 80 units SQ BID * Novolog 30-40 units SQ TID * HbA1c: 8.1% (04/01/25) ASSESSMENT: 06/02: * Patient received total of 90 units of insulin yesterday. 55 units were basal. * Fasting BSG 250 this AM * Increased Lantus this AM to 33 units (20% increase from yesterday), scheduled Lantus for 33 units SQ BID * Tightened correction factor to 2.5 with breakfast for better lunch time control 06/01: * Patient received total of 86 units of insulin yesterday, of which 50 units were basal * Fasting BSG >200, will provide slight increase in basal this AM * Plan to tighten novolog as BSGs yesterday still above goal 05/30: * Corazon received a total of 76 units of insulin yesterday (40 units were basal and 36 units were bolus) BSGs were above goal most of the day. * Fasting BSG was 207mg/dL this morning and continued to rise at lunch. CR tightened for lunch-HS doses and HS Lantus scale increased (will now receive 0, 15 or 25 units depending on BSG) 05/28: * Corazon received a total of 43 units of insulin yesterday. (20 units were basal and 23 units were bolus). With the bolus adjustments made yesterday, her blood glucose readings were closer to goal. Will continue the bolus insulin regimen today without change. * Fasting BSG was 166mg/dL this morning. She was made NPO this morning for the OR so reduced her AM Lantus by 50% for today. Will continue Lantus scale at HS. 05/27: * Corazon received a total of 49 units of insulin yesterday (30 units were basal and 19 units were bolus). BSGs were [phone]/dL. * Fasting BSG this morning was 139mg/dL. Lantus was decreased to 20 units QAM and Lantus scale at HS also reduced (now 0, 10 or 20 units depending on BSG) since BSGs have been below goal in the evening. * Will trial tightening bolus insulin parameters at breakfast and then loosening the rest of the day also as lunch readings have been above goal and readings in the evening have been below goal. 05/26: * Corazon received a total of 89 units of insulin yesterday (50 units were basal and 39 units were bolus). BSGs were [phone]/dL * Fasting BSG was 162mg/dL this morning. BID Lantus scale was decreased so that she will now receive 0,30, or 50 units depending on BSG as she has had some blood glucose readings that have been below goal in the evenings. * Correction factor was loosened yesterday. Will continue current bolus insulin regimen without change for now. 05/24 * Ms Shea is a 60yo diabetic F admitted with UTI/KHANG and N/V/D for the past 3-4 days. * Insulin orders initiated conservatively on admission. BSGs have been above goal, so orders have been adjusted today. * Continue to titrate Lantus cautiously in the setting of KHANG and decreased PO intake. * Pharmacy will continue to follow and adjust regimen as indicated. PLAN FOR INPATIENT GLYCEMIC CONTROL: * Hold outpatient oral diabetes medications * Basal insulin * Lantus 33 units SQ BID * Bolus insulin * NovoLog per scale ACHS or Q6hrs while NPO * Goal Range: Low 120 mg/dL - High 160 mg/dL * Breakfast: -Correction Factor: 12 mg/dL/unit -Nutritional / Prandial insulin per carb ratio of 1 unit per 2.5 grams CHO consumed * Lunch, dinner, HS -Correction Factor: 15 mg/dL/unit -Nutritional / Prandial insulin per carb ratio of 1 unit per 5
--- NOTE | 2025-06-02 12:48 | Podiatry Progress Note ---
Date of Service June 02, 2025 Assessment & Plan (1) Diabetic ulcer of right foot associated with type 2 diabetes mellitus, with bone involvement without evidence of necrosis: (2) Acute osteomyelitis of metatarsal bone of right foot: (3) Type 2 diabetes mellitus with foot ulcer: (4) Type 2 diabetes mellitus with Charcot's joint of right foot: (5) Diabetic peripheral neuropathy associated with type 2 diabetes mellitus: Plan Postop day 2 status post I&D and debridement of right foot wound with bone biopsy of the fifth metatarsal. - Bone for pathology fifth metatarsal 05/28/2025: Chronic osteomyelitis of the fifth metatarsal bone - Bone for culture 05/28/2025: Preliminary result growing Staph aureus. Sensitivities pending - Dressing changed. Will adjust dressing change to Santyl followed by Aquacel plain 4 x 4 fluff gauze ABD pad Justyna and an Sameer bandage once daily. Aquacel plain to be placed over the most dorsal extent to the wound at the location of bone biopsy. - Continue nonweightbearing to the right foot - Case discussed with orthotics. Consultation placed for orthotics for cam boot modification versus new cam boot for the right foot. Lengthy discussion with patient regarding salvageability of the right lower extremity. Plan for extended course of IV antibiotics for treatment of osteomyelitis of the right foot. Discussed results of pathology being positive for signs of chronic osteomyelitis of the fifth metatarsal. She is aware that if infection does not resolve with IV antibiotic therapy and wound care in addition to offloading my recommendation would be for below the knee amputation versus further treatment of the right foot. She is aware of the paramount importance of continued nonweightbearing to the right foot. Would benefit from discharge to a half-way facility given nonweightbearing requirement and probable need for continued IV antibiotic therapy for treatment of osteomyelitis of the fifth metatarsal. Follow-up in the wound center with any provider within 2 weeks of discharge. Admission and Anticipated Discharge Date Admission Date: May 23, 2025 Subjective Corazon is seen resting comfortably in hospital bed. Denies pain to the right foot. Denies nausea vomiting fever chills. We discussed pathology result positive for osteomyelitis of the fifth metatarsal. Patient feels she is unable to go to a half-way facility as she needs to be home to take care of her dad who is in his 90s. Review of Systems Review of Systems: Denies nausea, vomiting, fever, chills, shortness of breath, chest pain. All other systems reviewed and negative unless otherwise stated in HPI Physical Exam Physical Exam: Const: Appears well developed and well nourished. No signs of acute distress present. CV: Extremities: No cyanosis or edema. Capillary refill time is less than 2 seconds all digits of the bilateral foot. Posterior tibial and dorsalis pedis pulses are palpable bilateral. Neuro: Loss of protective sensation bilateral foot Psych: Mood/Affect: Mood is normal. Affect is normal. Cognition: Orientation is intact to person, place and time. Focused lower extremity musculoskeletal exam: Leg: No pain with compression of the calf muscle. Ankles: Normal to inspection and palpation. No swelling bilaterally. No tenderness bilaterally. Motor strength is intact. Range of motion pain-free and unlimited. Feet: Deformity of the right foot secondary to Charcot neuroarthropathy with evidence of significant surgical intervention and myocutaneous grafting extending around the foot medially. Diabetic ulcer subfifth metatarsal base extending laterally around the fifth metatarsal to the dorsal foot with exposed bone dorsal laterally on the proximal third of the fifth metatarsal. Wound bed is relatively healthy in appearance postdebridement. I am unable to express any purulent drainage and there is no purulent drainage to the packing which was removed. I decreased erythema and edema to the foot. No lymphangitis or streaking. No malodor. Hemorrhagic blister to the medial aspect of the left hallux without signs of local soft tissue infection. This area remained stable with no signs of local soft tissue infection. Results & Data Results & Data Vital Signs (Past 12 Hours) Vital Signs Temp Pulse Pulse Resp BP BP Pulse Ox 06/02/25 11:28 36.7 C 55 L 20 131/66 97 06/02/25 11:22 06/02/25 08:19 36.5 C 52 L 18 135/82 98 06/02/25 07:20 61 06/02/25 04:00 36.6 C 57 L 18 129/54 L 96 O2 Del Method 06/02/25 11:28 Room Air 06/02/25 11:22 Room Air 06/02/25 08:19 Room Air 06/02/25 07:20 06/02/25 04:00 Room Air Diagnostic Findings FINAL DIAGNOSIS Bone, right foot fifth metatarsal, biopsy: - Minute fragment of bone with hemorrhage and chronic osteomyelitis - No acute inflammation seen at 1232 Coding Level of Care Code 91531 SUB INP/OBS CARE 2MIN Diagnoses Diabetic ulcer of right midfoot associated with type 2 diabetes mellitus, with bone involvement without evidence of necrosis E11.621; L97.416 Diabetic foot ulcer location: midfoot Acute osteomyelitis of metatarsal bone of right foot M86.171 Type 2 diabetes mellitus with foot ulcer E11.621; L97.509 Type 2 diabetes mellitus with Charcot's joint of right foot E11.610 Diabetic peripheral neuropathy associated with type 2 diabetes mellitus E11.42 (1) Diabetic ulcer of right foot associated with type 2 diabetes mellitus, with bone involvement without evidence of necrosis Diabetic foot ulcer location: midfoot Qualified Code(s): E11.621 - Type 2 diabetes mellitus with foot ulcer; L97.416 - Non-pressure chronic ulcer of right heel and midfoot with bone involvement without evidence of necrosis
--- NOTE | 2025-06-02 14:14 | XRay Report ---
XR chest 1V portable CLINICAL HISTORY: confirm PICC placement COMPARISON STUDY: 05/23/2025 FINDINGS: Heart size and pulmonary vasculature are normal. There is no consolidation or pleural effus ion. No pneumothorax. IMPRESSION: No acute findings. ACT 112: Negative or not required by law. Electronically signed by: Oskar Amaya M.D. 06/02/2025 2:13 PM
[2025-06-02 16:38] VITALS: RESP 18
[2025-06-03 03:30] VITALS: O2SAT 97
[2025-06-03 07:16] LABS: Anion Gap 7.0 (3-11); Blood Urea Nitrogen 34.0 mg/dl (6-23); Calcium 9.1 mg/dl (8.6-10.3); Carbon Dioxide 24.0 mmol/L (21-32); Chloride 108.0 mmol/L (98-107); Creatinine Clr Calc Pharmacy 49.4 ml/min; Glucose 174.0 mg/dl (70-99(Fasting)); Potassium 3.8 mmol/L (3.5-5.1); Sodium 139.0 mmol/L (136-145)
--- NOTE | 2025-06-03 10:29 | Nephrology Progress Note ---
Date of Service June 03, 2025 Assessment & Plan Admission and Anticipated Discharge Date Admission Date: May 23, 2025 Subjective Assessment & Plan (1) KHANG (acute kidney injury): Patient with KHANG on CKD due to ischemic ATN in setting Norovirus and infected right foot wound. Cr was 2.2 then down to 2 but overnight went up again to 2.41 and now slowly drifting down. Agree with holding torsemide and Aldactone for now but will decide on daily basis. Will Likely start torsemide and aldactone from tomorrow at same dose as at home. As of now no resp distress and on RA. Creat today is even lower than yesterday at baseline 1.6 Continue torsemide 10 daily and aldactone 12.5 daily. was on torsemide 40 daily + Aldactone 25 at home though. I would prefer her to be on torsemide 20 at the minimum--she prefer 10 . continue 10 daily. Will sign off at this point. call if any new issues. nephrology f/u with dr Beltre within next 4 weeks Avoid contrast and NSAIDS. Daily labs. no electrolyte or acid/base disorder in Today renal panel . Bp is acceptable. (2) Heart failure with preserved ejection fraction: She is currently euvolemic. Holding torsemide and aldactone due to KHANG with acute infection. Low salt diet. (3) Type 2 diabetes mellitus with foot ulcer: Continue cefepime renally dosed. S----Feels better. had PICC line and on Abx for 6 weeks for osteomyelitis. Denies SOB but does have edema in her RT LE. Physical Exam Physical Exam: General exam: Appears comfortable, no acute distress Neck: No JVD, neck is supple Respiratory system: Clear breath sounds bilaterally. Gastrointestinal: Abdomen is soft, non distended, non tender, bowel sounds are present CVS: Regular rate and rhythm. No murmurs, rubs or gallops Musculoskeletal: No joint or muscle tenderness Extremities: right leg edema. Infected right foot wound-bandaged Neuro: Oriented, no tremors, no focal neurological deficits Skin: No rashes Results & Data Vital Signs (Past 12 Hours) Vital Signs Temp Pulse Pulse Resp BP BP Pulse Ox 06/03/25 07:28 36.6 C 56 L 18 112/70 97 06/03/25 05:29 55 L 06/03/25 02:56 36.3 C L 56 L 18 143/69 H 97 06/03/25 01:48 06/03/25 01:29 52 L 06/02/25 23:18 36.6 C 58 L 18 148/65 H 98 O2 Del Method 06/03/25 07:28 Room Air 06/03/25 05:29 06/03/25 02:56 Room Air 06/03/25 01:48 Room Air 06/03/25 01:29 06/02/25 23:18 Room Air
--- NOTE | 2025-06-03 10:33 | Infectious Disease Progress Nt ---
Date of Service June 03, 2025 Assessment & Plan (1) Diabetic ulcer of right foot associated with type 2 diabetes mellitus, with bone involvement without evidence of necrosis: (2) Acute osteomyelitis of metatarsal bone of right foot: (3) Leukocytosis: (4) KHANG (acute kidney injury): (5) Complicated urinary tract infection: Plan This is a 60-year-old female with past medical history DM2,peripheral neuropathy, gastroparesis, right foot osteomyelitis, Charcot foot, status post multiple surgical procedures including skin grafting, +MRSA diabetic foot infections, CKD, chronic right lower extremity ulcer (follows at wound care),hyperlipidemia who presented to the ED for evaluation of UTI symptoms on 05/23/25. She complained of dysuria, nausea, vomiting. She had been on nitrofurantoin for 3 doses without improvement in symptoms. She also complained of chronic right lower extremity swelling and non healing foot wound. About a week and a half prior to admission she felt she was developing a vaginal yeast infection. She usually gets yeast infections while on antibiotics that she receives at wound clinic for her right foot. She was started on Diflucan which helped her yeast symptoms, but then developed bilateral back pain, rigors and dysuria. Temperature at home 38.4. In ED afebrile and hemodynamically stable. Tmax this admission 38. Labs: WBC 12.2, BUN 49 creatinine 1.84, lactate 1.3, procalcitonin 0.2, ESR 79, CRP 10.42. Urinalysis with 2+ leukocyte esterase greater than 50 WBCs. . Urine culture with 30K Klebsiella pneumoniae with intermediate susceptibility to nitrofurantoin. She was started on cefepime which was switched to ceftriaxone. Chest x-ray showed no acute cardiopulmonary disease. CT abdomen pelvis showed right adrenal myelolipoma. Splenomegaly. Nonobstructing left nephrolith. Right foot x-ray showed stable pes planus. Stable talar collapse. No acute fracture. No evidence of osteomyelitis. She was evaluated by podiatry for nonhealing foot ulcer and possible right foot infection. R foot noted to have increased erythema and edema compared to prior wound care center photos. Also noted to have purulent drainage from the wound bed with necrosis of subcutaneous fat. She underwent I&D of the right foot wound with debridement of all necrotic appearing soft tissue and bone biopsy on 05/28/25. Exposed bone noted in the dorsal lateral aspect of the fifth metatarsal shaft within the wound bed following debridement of all necrotic tissue. There was concern for osteomyelitis. Bone was debrided. Bone culture of the fifth metatarsal and pathology obtained. Soft tissue cultures also obtained. To date all in traoperative bone/soft tissue and pre-OR wound cultures growing MSSA. Pathology pending. During this admission Stool PCR sent for diarrhea, nausea and vomiting. She did not have abdominal pain. Stool PCR positive for norovirus. C. difficile negative. Currently on contact isolation. Infectious disease consulted for right foot osteomyelitis, chronic nonhealing wound. She remains on Ceftriaxone. An E consult without video evaluation completed as video/camera is not working Microbiology 05/23/2025 blood culture NG 05/23/2025 urine culture Klebsiella pneumoniae (I nitrofurantoin, sensitive to all others tested) 05/24/2025 GI/stool PCR positive for norovirus 05/25/2025 right foot wound culture MSSA 05/28/2025 (ORsoft tissue culture #1) MSSA 05/28/2025 (OR soft tissue culture #2) MSSA 05/28/2025 (ORbone culture) MSSA Antibiotics Cefepime 05/23 - 05/26 Fluconazole 05/25 Metronidazole05/25 Ceftriaxone Cefazolin 05/30- current Pathology- 05/29 FINAL DIAGNOSIS Bone, right foot fifth metatarsal, biopsy: - Minute fragment of bone with hemorrhage and chronic osteomyelitis - No acute inflammation seen # Right mid foot foot DFI/ cellulitis # Right foot fifth metatarsal osteomyelitis with MSSA - sp debridement 05/29 # Klebsiella pneumoniae pyelonephritis # Norovirus on stool PCR # CKD # Antibiotic allergies Doxycyclinerash Dalbavancinrash # Antibiotic side effects Ceftazidime-renal failure Vancomycinrenal failure, Discussion: She presents with UTI symptomsdysuria, back pain, nausea, vomiting. She was on outpatient nitrofurantoin. Klebsiella pneumonia grew at 30K CFU in urine cul ture. Low growth likely secondary to exposure to nitrofurantoin with intermediate sensitivity outpatient. Agree with a 7-day course of treatment for possible pyelonephritis as she presented with local urinary and systemic symptoms. Tmax 38 She has a chronic right foot wound for which she follows at wound care. Wound has worsened. Picture of the right foot wound from 05/26 reviewed -noted a mary ntar wound near the base of the fifth metatarsal with surrounding erythema consistent with cellulitis. ? Purulent appearing drainage noted in wound bed. Initial podiatry exam from 05/27 reviewed "Deformity of the right foot secondary to Charcot neuroarthropathy with evidence of significant surgical intervention and skin grafting extending around the foot medially. Patient has a diabetic ulceration subfifth metatarsal base laterally extending into subcutaneous tissue with purulent drainage upon compression of surrounding tissues. Erythema and edema extending to the level of the right ankle. No notable lymphangitis. Wound does not probe to any identifiable bone at this time" She underwent I&D on 05/28/2025 of Right foot. There was concern for osteomyelitis at the fifth metatarsal. Bone debrided. Intraoperative soft tissue and bone cultures growing MSSA Pathology shows chronic osteomyelitis. Discontinued CEftriaxone and started Cefazolin. He completed 7 days for UTI. Will complete 6 weeks for residual osteo Recommendations: Coninue cefazolin 2 g IV every 8 hours ( cr cl 49) as bone, soft tissue growing MSSA for 6 weeks from OR date ( 05/29-07/10) -Weekly CBC with diff, CMP, ESR, CRP. Faxes should be sent to [facility] [phone]. ID office attention [facility] [phone] - ID follow up ( Tele ID) in 4 weeks. Continue contact isolation for positive norovirus PCR ID will sign off. Dandy He MD, MPH Infectious Disease [facility], [facility] Call [phone] with questions. Admission and Anticipated Discharge Date Admission Date: May 23, 2025 Subjective This patient recommendation is based on a telemedicine consult request which was completed asynchronously through chart review and information provided by the primary physician. The patient was not seen or examined today. The evaluation is consultative in nature and all patient care and treatment decisions can either be accepted or rejected by the patient's primary hospital-based treating physician using their own independent medical judgment for their patient. Time Spent Reviewing Chart: 21 - 30 minutes He is sp debridement Bone biopsy shows chronic osteo and bone biopsy growing MSSA Afebrile Picc placed Results & Data Vital Signs (Past 12 Hours) Vital Signs Temp Pulse Pulse Resp BP BP Pulse Ox 06/03/25 07:28 36.6 C 56 L 18 112/70 97 06/03/25 05:29 55 L 06/03/25 02:56 36.3 C L 56 L 18 143/69 H 97 06/03/25 01:48 06/03/25 01:29 52 L 06/02/25 23:18 36.6 C 58 L 18 148/65 H 98 O2 Del Method 06/03/25 07:28 Room Air 06/03/25 05:29 06/03/25 02:56 Room Air 06/03/25 01:48 Room Air 06/03/25 01:29 06/02/25 23:18 Room Air Laboratory Results Laboratory Results - last 48 hr 06/01/25 06/01/25 06/01/25 11:28 16:52 20:02 WBC RBC Hgb Hct MCV MCH MCHC RDW Std Deviation RDW Coeff of Anai Plt Count MPV Immature Gran % (Auto) Neut % (Auto) Lymph % (Auto) Dyer % (Auto) Eos % (Auto) Baso % (Auto) Neut # (Auto) Lymph # (Auto) Dyer # (Auto) Eos # (Auto) Baso # (Auto) Immature Gran # (Auto) Sodium Potassium Chloride Carbon Dioxide Anion Gap BUN Creatinine Est Cr Clr Drug Dosing eGFR BUN/Creatinine Ratio Glucose POC Glucose 203 H 157 H 223 H Calcium 06/02/25 06/02/25 06/02/25 07:19 08:02 11:38 WBC 8.63 RBC 3.95 L Hgb 10.7 L Hct 32.3 L MCV 81.8 MCH 27.1 MCHC 33.1 RDW Std Deviation 46.5 H RDW Coeff of Anai 16.0 H Plt Count 343 MPV 8.5 L Immature Gran % (Auto) 2.1 Neut % (Auto) 64.3 Lymph % (Auto) 24.2 Dyer % (Auto) 6.6 Eos % (Auto) 2.5 Baso % (Auto) 0.3 Neut # (Auto) 5.54 Lymph # (Auto) 2.09 Dyer # (Auto) 0.57 Eos # (Auto) 0.22 Baso # (Auto) 0.03 Immature Gran # (Auto) 0.18 Sodium 138 Potassium 3.8 Chloride 107 Carbon Dioxide 24 Anion Gap 7 BUN 29 H Creatinine 1.71 H Est Cr Clr Drug Dosing 46.8 eGFR 33.46 BUN/Creatinine Ratio 17.0 Glucose 213 H POC Glucose 250 H 202 H Calcium 8.9 09/15/25 09/15/25 09/16/25 16:56 20:18 06:27 WBC RBC Hgb Hct MCV MCH MCHC RDW Std Deviation RDW Coeff of Anai Plt Count MPV Immature Gran % (Auto) Neut % (Auto) Lymph % (Auto) Dyer % (Auto) Eos % (Auto) Baso % (Auto) Neut # (Auto) Lymph # (Auto) Dyer # (Auto) Eos # (Auto) Baso # (Auto) Immature Gran # (Auto) Sodium 139 Potassium 3.8 Chloride 108 H Carbon Dioxide 24 Anion Gap 7 BUN 34 H Creatinine 1.62 H Est Cr Clr Drug Dosing 49.4 eGFR 35.70 BUN/Creatinine Ratio 21.0 H Glucose 174 H POC Glucose 118 H 156 H Calcium 9.1 06/03/25 08:01 WBC RBC Hgb Hct MCV MCH MCHC RDW Std Deviation RDW Coeff of Anai Plt Count MPV Immature Gran % (Auto) Neut % (Auto) Lymph % (Auto) Dyer % (Auto) Eos % (Auto) Baso % (Auto) Neut # (Auto) Lymph # (Auto) Dyer # (Auto) Eos # (Auto) Baso # (Auto) Immature Gran # (Auto) Sodium Potassium Chloride Carbon Dioxide Anion Gap BUN Creatinine Est Cr Clr Drug Dosing eGFR BUN/Creatinine Ratio Glucose POC Glucose 178 H Calcium Microbiology 05/28/25 Unknown Foot Gram Stain - Final 05/28/25 Unknown Foot Aerobic and Anaerobic Culture - Final Staphylococcus aureus Staphylococcus aureus#2 05/28/25 Unknown Foot,Right Gram Stain - Final 05/28/25 Unknown Foot,Right Aerobic and Anaerobic Culture - Final Staphylococcus aureus Staphylococcus aureus#2 05/28/25 Unknown Foot Gram Stain - Final 05/28/25 Unknown Foot Aerobic and Anaerobic Culture - Final Staphylococcus aureus Staphylococcus aureus#2 05/25/25 09:50 Foot,Right Gram Stain - Final 05/25/25 09:50 Foot,Right Aerobic and Anaerobic Culture - Final Staphylococcus aureus Staphylococcus aureus#2 05/23/25 19:47 Blood Aerobic Blood Culture - Final No growth in Aerobic bottle after 5 days. 05/23/25 19:47 Blood Anaerobic Blood Culture - Final No growth in Anaerobic bottle after 5 days. 05/23/25 19:47 Blood Aerobic Blood Culture - Final No growth in Aerobic bottle after 5 days. 05/23/25 19:47 Blood Anaerobic Blood Culture - Final No growth in Anaerobic bottle after 5 days. 05/23/25 19:47 Urine,Clean Catch Urine Culture - Final Klebsiella pneumoniae Diagnostic Findings Chest X-Ray 06/02/25 13:10 XR chest 1V portable CLINICAL HISTORY: confirm PICC placement COMPARISON STUDY: 05/23/2025 FINDINGS: Heart size and pulmonary vasculature are normal. There is no consolidation or pleural effusion. No pneumothorax. IMPRESSION: No acute findings. ACT 112: Negative or not required by law. Electronically signed by: Oskar Amaya M.D. 06/02/2025 2:13 PM Medications Administered Home Medications Medication Instructions Recorded Confirmed Last Taken cetirizine 10 mg tablet (Zyrtec) 10 mg PO DAILY 12/15/21 05/23/25 05/23/25 nitroglycerin 0.4 mg sublingual 0.4 mg sublingual UD PRN chest 12/29/21 05/23/25 Unknown tablet (Nitrostat) pain #30 tabs diphenhydramine HCl 25 mg capsule 50 mg PO DAILY PRN allergies 03/24/22 05/23/25 Unknown (Allergy (diphenhydramine)) lancets 30 gauge (OneTouch Delica #100 ea 04/18/22 05/14/25 Unknown Lancets) carvedilol 25 mg tablet 25 mg PO BID 10/07/22 05/23/25 05/23/25 08:00 spironolactone 25 mg tablet 25 mg PO DAILY 11/14/22 05/23/25 05/23/25 ondansetron HCl 4 mg tablet 4 mg PO Q6H PRN nausea and vomiting 01/23/23 5 Unknown Bacillus coagulans 250 million 500 cell PO UD 07/14/23 05/23/25 Unknown cell chewable tablet (Digestive Advantage Probiotic Gummy) aspirin 81 mg tablet,delayed 81 mg PO DAILY PRN chest discomfort 07/14/23 05/23/25 Unknown release bisacodyl 5 mg tablet,delayed 10 mg PO Q7D PRN Constipation 07/14/23 05/23/25 Unknown release isosorbide mononitrate 60 mg 90 mg PO DAILY 01/08/24 05/23/25 05/23/25 tablet,extended release 24 hr OneTouch Verio test strips (blood #300 ea 10/17/24 05/14/25 Unknown sugar diagnostic) acetaminophen 500 mg tablet 500 mg PO DIRECTED PRN Pain 12/29/24 05/23/25 Unknown hydrocodone 5 mg-acetaminophen 325 0.5 tab PO Q6H PRN Pain 12/29/24 05/23/25 Unknown mg tablet peg 400-propylene glycol (PF) 0.4 1 drp ophthalmic (eye) QID 12/29/24 05/23/25 Unknown %-0.3 % eye drops in a dropperette (Systane (PF)) insulin syringe-needle U-100 1 mL #600 ea 03/03/25 05/14/25 Unknown 28 gauge x 1/2" insulin aspart U-100 100 unit/mL See Rx Instructions .Route 04/23/25 05/23/25 05/22/25 subcutaneous solution (Novolog .COMPLEX #30 mL U-100 Insulin aspart) insulin glargine 100 unit/mL 80 unit (0.8 mL) subcut BID #150 mL 04/23/25 05/23/25 05/23/25 08:00 subcutaneous solution (Lantus U-100 Insulin) rosuvastatin 40 mg tablet 40 mg PO HS #90 tabs 04/23/25 05/23/25 05/22/25 torsemide 20 mg tablet 40 mg PO DAILY 05/23/25 05/23/25 05/23/25 17:00 Active Medications Generic Name Dose Route Start Last Admin Trade Name Freq PRN Reason Stop Dose Admin Acetaminophen 650 mg 05/24/25 04:35 05/24/25 20:03 Acetaminophen 325 Mg Tab PO 06/23/25 04:34 650 mg Q4H PRN Administration Pain or Fever Hydrocodone Bitart/Acetaminophen 0.5 tab 05/24/25 00:58 06/02/25 22:53 Hydrocodone/Acetamophen 5/325mg Tab PO 06/07/25 00:57 0.5 tab Q6H PRN Administration Pain Artificial Tears 1 drops 05/24/25 09:00 06/03/25 08:07 Artificial Tears OP 06/23/25 08:59 1 drops QID KENNEDY Administration Carvedilol 25 mg 05/31/25 21:00 06/03/25 08:09 Carvedilol 25 Mg Tab PO 06/30/25 20:59 25 mg BID KENNEDY Administration Cetirizine HCl 10 mg 05/24/25 09:00 06/02/25 11:34 Cetirizine Hcl 10 Mg Tablet PO 06/23/25 08:59 10 mg DAILY KENNEDY Administration Diphenhydramine HCl 50 mg 05/24/25 00:58 06/02/25 22:53 Diphenhydramine Capsule 25 Mg Cap PO 06/23/25 00:57 50 mg DAILY PRN Administration allergies Heparin Sodium (Porcine) 7,500 units 05/24/25 09:00 06/03/25 08:13 Heparin Sod 5,000 Unit/0.5 Ml Vial SQ 06/23/25 08:59 Not Given Q12 KENNEDY Prochlorperazine 5 mg/ Syringe 5 mls @ 5 mls/min 05/26/25 19:49 05/26/25 21:18 IV 06/25/25 19:48 5 mls/min Q6H PRN Administration Breakthrough N/V Cefazolin Sodium 2,000 mg in 15 mls @ 3.75 mls/min 05/30/25 13:00 06/03/25 05:44 Ancef 2000mg IV 07/11/25 12:59 3.75 mls/min Q8H KENNEDY Administration Insulin Aspart 0 units 05/27/25 08:15 06/03/25 09:41 Insulin Aspart Per Unit Charge SC 06/26/25 08:14 12 units 0730 KENNEDY Administration Insulin Aspart 0 units 05/27/25 11:30 06/02/25 21:08 Insulin Aspart Per Unit Charge SC 06/26/25 11:29 Not Given 1130,1630,2100 [facility] Insulin Glargine 33 units 06/02/25 21:00 06/03/25 09:41 Lantus Per Unit Charge SQ 07/02/25 08:59 33 units BID KENNEDY Administration Isosorbide Mononitrate 90 mg 05/24/25 09:00 06/03/25 08:12 Isosorbide Dyer Extended Rel 30 Mg Tabcr PO 06/23/25 08:59 90 mg DAILY KENNEDY Administration Nystatin 1 appln 05/29/25 21:00 06/03/25 09:22 Nystatin Powder 15gm Btl EXT 06/28/25 20:59 1 appln BID KENNEDY Administration Nystatin/Triamcinolone Acetonide 1 appln 05/25/25 21:00 06/03/25 08:11 Nystatin/Triamcin Cr 15 Gm Tube EXT 06/24/25 20:59 1 appln BID KENNEDY Administration Ondansetron HCl 4 mg 05/24/25 00:58 05/26/25 17:10 Ondansetron Inj 2 Mg/Ml 2 Ml Vial IV 06/23/25 00:57 4 mg Q6H PRN Administration Nausea Rosuvastatin Calcium 40 mg 05/24/25 21:00 06/02/25 21:09 Rosuvastatin Calcium 20 Mg Tab PO 06/23/25 20:59 40 mg HS KENNEDY Administration Spironolactone 12.5 mg 06/02/25 09:00 06/03/25 08:13 Spironolactone 12.5 Mg Tab PO 07/02/25 08:59 12.5 mg DAILY KENNEDY Administration Torsemide 10 mg 06/01/25 09:10 06/02/25 11:34 Torsemide 10 Mg Tab PO 07/01/25 09:09 10 mg QAM KENNEDY Administration (1) Diabetic ulcer of right foot associated with type 2 diabetes mellitus, with bone involvement without evidence of necrosis Diabetic foot ulcer location: midfoot Qualified Code(s): E11.621 - Type 2 diabetes mellitus with foot ulcer; L97.416 - Non-pressure chronic ulcer of right heel and midfoot with bone involvement without evidence of necrosis
[2025-06-03 11:36] VITALS: TEMP 98.1
--- NOTE | 2025-06-03 12:09 | Discharge Summary ---
Date of Service June 03, 2025 Admission HPI Per Admitting Provider 60-year-old female PMHx T2DM, HLD, HTN, HFpEF, CKD stage III, anxiety and depression, hypothyroidism, and known UTI presenting for vomiting and diarrhea x 3 to 4 days [employer]ED TRA[employer]. Currently being managed with Macrobid. 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 States that she was taking Diflucan for this which seemed to have helped, however, she then noted that her urine was turning a darker brown color and she was experiencing some bilateral back pain/discomfort that reminded her of her previous kidney stone. She has noticed an abnormal smell to her urine. She was prescribed Macrobid in which she took 3 doses of but continued to feel as though she was having significant dysuria and rigors. States that on the day of arrival, she was experiencing rigors and when she went to take her temperature, the thermometer was reading up to 38.4 C and then she removed the thermometer because she did not want to see how high it was going to go. She has been having nausea, vomiting, and diarrhea over the course of this illness. Denies abdominal pain but does feel that her abdomen is distended after the fluid bolus provided in ED. Additionally, she states that she is not having any chest pain or palpitations, but she does feel that her heart is "stretching" from the fluid bolus. Again, no chest pain or pressure. Denies SOB. Her RLE is being followed by wound clinic for a known ulcer in which is currently being managed with wound care/wound clinic. The leg is often more edematous that the LLE at her baseline. She is occasionally off balance as she states that her "one leg is a different length than the other" but she does not feel that she is going to pass out. Pt Denies CP, palpitations, SOB, cough, abdominal pain, constipation, numbness/tingling, URI symptoms, weakness, syncope, or falls. Pt did not take pm medications, she is requesting carvedilol because of feeling that her heart is stretching. Pt reports taking care of her 91-year-old father who lives at home with her. ED evaluation reveals CBC with leukocytosis 12.2, H&H 11.2/32.4; PT/INR WNL; VBG's pH 7.45, pCO2 33; CMP anion gap 13, BUN 49, creatinine 1.84, ratio 26.6, glucose 177, AST 12, alkaline phosphatase 132; troponin 24.2; lactate 1.3; procalcitonin 0.2; UA suggestive of infection; CXR pending official read; CTAP pending official read; EKG NSR, low voltage QRS at 66 bpm.; Provided with Plasma-Lyte 500 mL and cefepime 2 g IV in ED. Please see Dr. Nunez's attestation for adjustments/additions to treatment plan. Admission Exam Per Admitting Provider General: No acute distress, sitting in chair in room B9 and not the hospital bed Skin: Warm and dry Head: Normocephalic, atraumatic Eyes: PERRL, conjunctivae clear, sclera non-icteric ENT: External ear and ear canal without swelling; nose atraumatic; good dentition, tongue normal appearance, pharynx normal Neck: Supple, no LAD Cardio: RRR, murmur auscultated, no G/R, S1 and S2 normal Resp: No respiratory distress, Lungs CTA in all lobes bilaterally, no wheezes, rales, or rhonchi Abdomen: Soft, symmetric, nontender; No masses or hepatosplenomegaly; Bowel sounds normoactive MSK: No deformities; pulses palpable and equal; trace pitting edema BLE, R > L (at patient's baseline). Neuro: Awake, alert; Sensation intact bilaterally; CN grossly intact Psych: Appropriate mood and affect; good judgement and insight. Principal Diagnosis Complicated UTI and Chronic Osteomyelitis of Right Foot Discharge Exam GA: AAOx4, well-groomed, no apparent distress HEENT: sclera anicteric, EOMI CVS: S1 and S2 heard, no murmurs, rubs, or gallops, Pulse: regular rate and rhythm, 2+ B/L RESP: vesicular breath sounds, no wheezes, rhonchi, or rales ABD: nontender, nondistended, normoactive bowel sounds SKIN: flaking skin at the legs B/L. 1+ edema B/L. NEURO: no focal deficits noted EXTREMITIES: right foot in dressing Discharge Data Allergies Allergy/AdvReac Type Severity Reaction Status Date / Time adhesive Allergy Severe blisters Verified 05/23/25 21:50 ceftazidime [From Fortaz] Allergy Severe renal Verified 05/23/25 21:50 failure dalbavancin Allergy Severe RASH ALL Verified 05/23/25 21:50 OVER FACE AND CHEST vancomycin Allergy Severe renal Verified 05/23/25 21:50 failure doxycycline Allergy Intermediate RASH Verified 05/23/25 21:50 sitagliptin [From Januvia] Allergy Intermediate muscle Verified 05/23/25 21:50 spasms tetracycline Allergy Intermediate RASH Verified 05/23/25 21:50 ibuprofen AdvReac Severe Renal Verified 05/23/25 21:50 Failure ketorolac [From Toradol] AdvReac Severe Renal Verified 05/23/25 21:50 Failure carvedilol AdvReac Mild lip Verified 05/23/25 21:50 numbness coconut AdvReac Verified 05/30/25 14:04 DIURETICS AdvReac Severe unable to Uncoded 05/23/25 21:50 take because of kidneys Consultations 05/23/25 21:22 ED Decision to Admit Stat 05/25/25 09:43 Consult Nephrology Routine 05/26/25 17:22 Consult Podiatry Routine 05/30/25 07:55 Consult Infectious Diseases Routine Procedures Performed Operation Date: 05/28/25 08:20 Actual Procedures p Right Foot Incision and Drainage(Right) - Benjamin Romero DPM Ordered Studies 05/23/25 19:26 CT Abd and Pelvis [CT abd pelvis wo con] Stat Hospital Course (1) Diabetic ulcer of right foot associated with type 2 diabetes mellitus, with bone involvement without evidence of necrosis: (2) Acute osteomyelitis of metatarsal bone of right foot: (3) Heart failure with preserved ejection fraction: (4) Acute respiratory alkalosis: (5) Leukocytosis: (6) KHANG (acute kidney injury): (7) Complicated urinary tract infection: (8) Type 2 diabetes mellitus with foot ulcer: (9) Nausea & vomiting: (10) UTI (urinary tract infection): Plan 60-year-old female PMHx T2DM, HLD, HTN, HFpEF, CKD stage III, anxiety and depression, hypothyroidism, and known UTI presenting for vomiting and diarrhea x 3 to 4 days [employer] TRA[employer] and ongoing dysuria, frequency of urine since 2 weeks. Currently being managed for complicated UTI and osteomyelitis of right foot. #T2DM with R foot ulcer/ Osteomyelitis: H/o DMT2, also with known wound/ulcer R foot. At home regimen includes Glargine 80U BID, Aspart SSI. - For wound -- CT of foot was negative for OM (04/22/2025); Encourage offloading, Aquacel Ag dressing (change M/W/F) - Xray foot shows no osteomyelitis but debridement performed with bone culture sent with podiatry with clinical findings of chronic osteomyelitis. - Continue Wound care - PICC line placed 06/03 - PT/OT observation: she is not able to maintain non-weight bearing, despite this, pt still wishes to be discharged - Will continue the cefazolin 2g TID for osteomyelitis for 6 weeks, tentative end date 07/10/25 - Podiatry, Nephrology, and ID follow-up outpatient - Weekly CBC with diff, CMP, ESR, CRP labs #UTI/SIRS a/w vaginal candidiasis: - Completed 7 days course of Cefazolin for UTI. But will still continue Cefazolin for Osteomyelitis of RT foot. - Continue Nystatin powder topical for intertrigo - Continue Diflucan for vaginal yeast infection as prescribed at home. #KHANG/CKD In setting of known UTI and CKD, also in setting of recent vomiting. Baseline Cr 1.3-1.6. - Cr 2.26->1.700> 1.71>1.62; BUN 39 - Nephrology follow-up- Continue torsemide 10mg and Aldactone 12.5mg - Avoid contrast and NSAIDS. #Elevated troponin-resolved Pt w/ h/o NSTEMI, "NM x 2" repeat was 24.6. - EKG NSR, without ischemic changes - Likely 2/2 demand - stable, currently asymptomatic #N/V/D/Norovirus infection-resolved: No abdominal pain or diarrhea. - CBC leukocytosis 11.43-> 8.6 - Zofran prn N/V - Stool studies showed Noro virus infection. #HFpEF- CXR without acute findings, echo (2021) EF 55-60% , Grade 2 abnormal Left ventricular diastolic dysfunction; Follows with cardiology -Imdur, spironolactone, torsemide - Continue as prescribed -Daily weights #HTN- Carvedilol, Imdur, spironolactone - Continue #HLD- Rosuvastatin - continue #Pain- On Tylenol prn. At home Hydrocodone-acetaminophen prn Total Time Total Time Spent Total Time Spent (In Minutes): refer to attending physician attestation Discharge Plan Discharge Items Patient Disposition: Home - Self-Care Reason For Visit: UTI, KHANG, ELEVATED TROP Discharge Diagnosis: Complicated UTI and Osteomyelitis of Right Foot Condition on Discharge: Fair Activity: As commented below Weightbearing: Right non-weightbearing Non-emergency contact: Primary Care Provider Call non-emergency contact if: you have any medication questions, your symptoms worsen and you have a fever Follow-up/Referrals: Maria Isabel Beltre MD, PhD [Physician] - (Follow up 4 weeks from discharge) Sara Aragon MD [Primary Care Provider] - 06/10/25 12:45 pm (This appointment will be with Dr. Lauren at the [address] [place] [address] Office) Benjamin Romero DPM [Surgeon] - Dandy He MD [Physician] - (Follow up in 4 weeks) Diet: Regular Addtl Attending Provider Instructions: You presented into the hospital with a complicated UTI. You had some episodes of vomiting and diarrhea. During your hospital stay we ran labs and did some imaging to confirm what was causing your symptoms and were also being treated osteomyelitis of the right foot for which you had a biopsy which showed chronic osteomyelitis. We provided IV antibiotics to resolve your UTI and to assist with treating the osteomyelitis. The PICC line was placed to help you receive antibiotics for the whole duration of treatment. We also gave you some topical nystatin to help with your vaginal yeast infection. You were also diagnosed with norovirus. Please keep your appointment with Wound Care this upcoming Monday. Also, please see your primary care provider within 1-2 weeks to speak about your current hospital stay. Expect a phone call to follow up with Nephrology, Infectious Disease, and Podiatry. Our case management team will try to assist you with getting a wheelchair van transport for travel home. Please get weekly labs at a convenient facility, preferably one well trained in PICC lines. Please limit weight on right foot and wear your cam boot on right foot. Please continue to drink plenty of fluids, particularly if your diarrhea persists. As you leave the hospital, these are the new medications for you to take: New Medications -Cefazolin 2grams three times per day for 6 weeks with anticipated completion date of 07/10/25 -Spironolactone dose was changed 12.5mg daily -Torsemide was changed to 10mg daily Home Medications -Continue all home medications as prescribed. Diflucan for yeast infection. Please come back to the ER if symptoms worsen or if you develop a fever. Pending Studies at Discharge: No Stand-Alone Forms: My [facility] [employer], Smoking Cessation Medications and DC Order Prescriptions: New torsemide 10 mg Tablet 10 mg PO QAM Qty: 30 0RF spironolactone 25 mg Tablet 12.5 mg PO DAILY Qty: 30 0RF Continued aspirin 81 mg tablet,delayed release (DR/EC) 81 mg PO DAILY PRN (Reason: chest discomfort) ondansetron HCl 4 mg tablet 4 mg PO Q6H PRN (Reason: nausea and vomiting) (DME) OneTouch Verio test strips Strip See Rx Instructions .ROUTE .MEDSUPPLY Qty: 300 3RF Rx Instructions: Test blood sugar three times daily (DME) insulin syringe-needle U-100 1 mL 28 gauge x 1/2" syringe See Rx Instructions .Route Qty: 600 3RF Rx Instructions: Inject insulin six times daily rosuvastatin 40 mg tablet 40 mg PO HS Qty: 90 3RF insulin aspart U-100 [Novolog U-100 Insulin aspart] 100 unit/mL solution See Rx Instructions .ROUTE .COMPLEX MDD 100 units Qty: 30 5RF Rx Instructions: Inject 20-30 units three times a day with meals plus sliding scale; Inject 30-40 units TID 12/29-Based on her meter reading and carb intake, per pt it's up to around 35 units insulin glargine [Lantus U-100 Insulin] 100 unit/mL solution 80 unit subcut BID Qty: 150 1RF (DME) lancets [OneTouch Delica Lancets] 30 gauge misc See Rx Instructions .ROUTE .MEDSUPPLY Qty: 100 Rx Instructions: Test blood sugar four times daily diphenhydramine HCl [Allergy (diphenhydramine)] 25 mg capsule 50 mg PO DAILY PRN (Reason: allergies) bisacodyl 5 mg tablet,delayed release (DR/EC) 10 mg PO Q7D PRN (Reason: Constipation) Rx Instructions: currently on hold carvedilol 25 mg tablet 25 mg PO BID Rx Instructions: must administer with a meal/food Digestive Advantage Prob Gummy 250 million cell tablet,chewable 500 cell PO UD Rx Instructions: 500 cell daily. currently on hold per pt isosorbide mononitrate 60 mg tablet extended release 24 hr 90 mg PO DAILY cetirizine [Zyrtec] 10 mg Tablet 10 mg PO DAILY nitroglycerin [Nitrostat] 0.4 mg Tablet, Sublingual 0.4 mg sublingual UD PRN (Reason: chest pain) Qty: 30 0RF hydrocodone-acetaminophen 5-325 mg tablet 0.5 tab PO Q6H PRN (Reason: Pain) Rx Instructions: takes half tab with her Zyrtec as the pain medication makes her itchy and usually takes with 500mg tylenol. Systane (PF) 0.4-0.3 % Dropperette 1 drp OPHTHALMIC (EYE) QID acetaminophen 500 mg Tablet 500 mg PO DIRECTED PRN (Reason: Pain) Rx Instructions: usually takes with her half tab of hydrocodone Discontinued spironolactone 25 mg tablet 25 mg PO DAILY torsemide 20 mg tablet 40 mg PO DAILY Rx Instructions: PER PT "CAN TAKE UP TO 60 MG, IF NEEDED". Discharge Orders: Discharge Order (Routine); Ordered 06/03/25 Ordered By: Raheem Lowery/Other Patient Handouts: Osteomyelitis Dc Admission Data Admit Date/Time: 05/23/25 22:31 Attending Provider: Judd Saxena Admit Provider: Carol Nunez Primary Care Provider: Sara Aragon Other Providers: [place]; Carol Nunez; Maria Isabel Beltre; Shamar Leonardo; William Velasquez; Kandice Wesley; Christal Walker; Benjamin Romero Other Interventions: Discharge Summary Assessment (RN) Last Done: 06/03/25 14:03 Supervising Physician Co-Signing Physician Notes I personally examined the patient and verified all tan points of history and exam, discussed case, and agree with decision making with Dr Monahan No new complaints. Discussed discharge planning. She complains of some foot pain however she declines medications and just feels she wants to elevate her foot. sepsis POA - from UTI, foot, ?both. improving Foot woundchronic. Osteomyelitis and a degree of surrounding cellulitisdiscussed the need for PICC line likely best treatment would be prolonged course of cefazolin. Recommend case management to make the arrangements. Additionally urinary tract infection present on admission will be treated with the IV antibiotics. AKIimproving. encouraged good po intake and caution with home prn diuretics demand myocardial ischemia - from above, fortunately mild morbid obesity w BMI 48.4 - noted Dispositionshe would like to go home (podiatry feels she would be better in a facility where strict nonweightbearing could be enforced, but she now expresses a better understanding of the need for strict nonweightbearing. PT states she is not willing to go to facility and will do her best to keep non weight bearing, but will wear Cam boot and follow up with wound care this week Home Cefazolin, IV antibiotics s/p PICC line placement, 6 week total duration as path did show chronic osteomyelitis LD 07/10/25 I personally have spent greater than 30 minutes of time on the patient discharge today including review of tests, documentation, exam, and discussing treatment plan moving forward with the patient. Resident Activity Tracking Resident Involvement: Resident Care Provided Care Provided: Adult Hospital Medicine
[2025-06-03] MEDS ORDERED: COLLAGENASE OINT 30 GM TUBE EXT PRN (12:26)
[2025-06-03 14:05] VITALS: BP 148/65
[2025-06-03 15:30] VITALS: PULSE 55
--- NOTE | 2025-06-03 15:37 | Billing Data ---
Date of Service June 03, 2025 Coding Level of Care Code 40455 INP/OBS DISCH >30 MIN
== END 2025-06-03 15:00 | disposition home or self-care (01) | DRG 853 ==
LOC: ED 19:16 → EDINP 22:31 → SUATTDRO 22:31 → 2W 05-24 00:58
DX: Z86.14 Personal history of Methicillin resistant Staphylococcus aureus infection; E11.22 Type 2 diabetes mellitus with diabetic chronic kidney disease; F41.9 Anxiety disorder, unspecified; B96.1 Klebsiella pneumoniae [K. pneumoniae] as the cause of diseases classified elsewhere; Z79.82 Long term (current) use of aspirin; N17.0 Acute kidney failure with tubular necrosis; X58.XXXA Exposure to other specified factors, initial encounter; E86.0 Dehydration; I50.32 Chronic diastolic (congestive) heart failure; E11.610 Type 2 diabetes mellitus with diabetic neuropathic arthropathy; M86.171 Other acute osteomyelitis, right ankle and foot; B37.31 Acute candidiasis of vulva and vagina; S90.822A Blister (nonthermal), left foot, initial encounter; Z99.89 Dependence on other enabling machines and devices; I25.2 Old myocardial infarction; A41.01 Sepsis due to Methicillin susceptible Staphylococcus aureus; G89.29 Other chronic pain; F32.A Depression, unspecified; I24.89 Other forms of acute ischemic heart disease; G47.33 Obstructive sleep apnea (adult) (pediatric); A08.11 Acute gastroenteropathy due to Norwalk agent; I25.10 Atherosclerotic heart disease of native coronary artery without angina pectoris; N39.0 Urinary tract infection, site not specified; Z77.22 Contact with and (suspected) exposure to environmental tobacco smoke (acute) (chronic); Z88.6 Allergy status to analgesic agent; Z79.899 Other long term (current) drug therapy; N18.30 Chronic kidney disease, stage 3 unspecified; I13.0 Hypertensive heart and chronic kidney disease with heart failure and stage 1 through stage 4 chronic kidney disease, or unspecified chronic kidney disease; L97.512 Non-pressure chronic ulcer of other part of right foot with fat layer exposed; Z68.42 Body mass index [BMI] 45.0-49.9, adult; E78.5 Hyperlipidemia, unspecified; E11.42 Type 2 diabetes mellitus with diabetic polyneuropathy; Z88.8 Allergy status to other drugs, medicaments and biological substances; Z79.4 Long term (current) use of insulin; Z88.1 Allergy status to other antibiotic agents; E03.9 Hypothyroidism, unspecified; J45.909 Unspecified asthma, uncomplicated; E11.621 Type 2 diabetes mellitus with foot ulcer; E66.01 Morbid (severe) obesity due to excess calories